=== PATIENT | male | born 1940 | race Caucasian/White ===

== ENCOUNTER 2018-09-26 09:03 | Emergency (ER) | payer MEDICARE ==
[2018-09-26] MEDS ORDERED: NA CHLORIDE 0.9% 1,000 ML ONE (09:20)
[2018-09-26 09:29] LABS: Absolute Lymphocytes (CBC) 1.7 K/uL (0.7-4.9); Absolute Monocytes 0.7 K/uL (0.1-1.3); Absolute Neutrophil 5.2 K/uL (1.8-8.0); Basophils % 0.7 % (0-1.3); Eosinophils % 1.1 % (0-4.4); Hematocrit 49.1 % (39.6-49.0); Lymphocytes % 21.9 % (15.3-44.8); MPV 8.7 fL (7.6-11.3); Monocytes % 8.8 % (3.3-12.3); RBC Red Blood Cell Count 5.37 M/uL (4.33-5.43)
[2018-09-26] MEDS ORDERED: INSULIN -REGULAR HUMAN 50 UNIT/0.5 ML ML ONE ×2 (09:33→10:28)
[2018-09-26 09:51] LABS: BUN Blood Urea Nitrogen 23 mg/dL (7-18); Bicarbonate 26 mmol/L (21-32); Creatine Phosphokinase 61 U/L (39-308); Glucose Level 393 mg/dL (74-106); Magnesium 2.4 mg/dL (1.8-2.4); Sodium Level 138 mmol/L (136-145); Troponin (Emerg Dept Use Only) < 0.02 ng/mL (0.0-0.045)
--- NOTE | 2018-09-26 10:23 | RAD REPORT ---
EXAM DESCRIPTION: CT - Head Brain Wo Cont - 09/26/2018 9:54 am CLINICAL HISTORY: Syncope, dizziness COMPARISON: October 2012 TECHNIQUE: Axial 5 mm thick images of the head were obtained without IV contrast. All CT scans are performed using dose optimization technique as appropriate and may include automated exposure control or mA/KV adjustment according to patient size. FINDINGS: No intracranial hemorrhage, mass, edema or shift of mid-line structures. No acute infarcti on changes seen. Moderate atrophy and chronic ischemic changes are present. Ventricles are in proport ion to volume loss. Dense arterial tree calcifications are present. Mastoid air cells and visualized portions of the paranasal sinuses are clear. No acute bony findings. IMPRESSION: Atrophy and chronic ischemic changes are present mildly progressive from 2012. No hemorrhage or acute intracranial finding. Chronic ischemic changes can mask nonhemorrhagic acute infarction. MR brain followup can be obtained if there is ongoing concern for acute ischemia.
--- NOTE | 2018-09-26 10:38 | RAD REPORT ---
EXAM DESCRIPTION: RAD - Chest Single View - 09/26/2018 10:05 am CLINICAL HISTORY: Cough, dizziness COMPARISON: August 2016 TECHNIQUE: AP portable chest image was obtained 1003 hours . FINDINGS: No focal lung parenchymal process. Lung markings are similar to comparison. Heart and vasc ulature are normal. No measurable pleural effusion and no pneumothorax. No acute bony abnormality see n. No acute aortic findings suspected. IMPRESSION: No acute cardiopulmonary process. No significant interval change.
[2018-09-26 11:34] LABS: Urine Bacteria <20 /HPF (NONE SEEN); Urine Culture Reflex Order REFLEXED; Urine RBC <5 /HPF (NONE SEEN)
--- NOTE | 2018-09-26 11:41 | EDPHYS ---
Physician Documentation [facility] Name: Yeyo Pelayo Age: 78 yrs Sex: Male : 1940 Arrival Date: 09/26/2018 Time: 09:04 Bed 4 Private MD: Lalo Munroe H ED Physician Jean Madera HPI: 09/26 10:16 This 78 yrs old Male presents to ER via Ambulatory with complaints of "Heart rn racing". 10:16 The patient presents with dizziness, generalized weakness, lightheadedness. Onset: The rn symptoms/episode began/occurred 1 week(s) ago. Context: occurred at an unknown location. Modifying factors: The symptoms are alleviated by nothing, the symptoms are aggravated by standing up, changing position. Severity of symptoms: At their worst the symptoms were moderate in the emergency department the symptoms are unchanged. The patient has not experienced similar symptoms in the past. Reports 1 week of intermittent dizziness, lightheaded, feels like going to pass out, feels heart racing, no syncope, no fever/chest pain. No abd pain/vomiting/diarrhea. Reports blood sugar has been high and urinating more frequently. . Historical: - Allergies: 09:15 No Known Allergies; ss - PMHx: 09:15 Diabetes - NIDDM; Hypertension; Kidney stones; ss - PSHx: 09:15 Lithotripsy; ss - Immunization history:: Adult Immunizations up to date. - Social history:: Smoking status: . - Ebola Screening: : No symptoms or risks identified at this time Patient denies exposure to infectious person Patient denies travel to an Ebola-affected area in the 21 days before illness onset. - Family history:: not pertinent. - Hospitalizations: : No recent hospitalization is reported. ROS: 10:16 Constitutional: Negative for fever, chills, and weight loss, Eyes: Negative for injury, rn pain, redness, and discharge, Neck: Negative for injury, pain, and swelling, Cardiovascular: Negative for chest pain, and edema, Respiratory: Negative for cough, wheezing, and pleuritic chest pain, Abdomen/GI: Negative for abdominal pain, nausea, vomiting, diarrhea, and constipation, MS/Extremity: Negative for injury and deformity, Skin: Negative for injury, rash, and discoloration, Neuro: Negative for headache, numbness, tingling, and seizure. Exam: 10:16 Constitutional: This is a well developed, well nourished patient who is awake, alert, rn and in no acute distress. Appears anxious Head/Face: Normocephalic, atraumatic. Eyes: Pupils equal round and reactive to light, extra-ocular motions intact. Lids and lashes normal. Conjunctiva and sclera are non-icteric and not injected. Cornea within normal limits. Periorbital areas with no swelling, redness, or edema. ENT: dry MM Cardiovascular: Regular rate and rhythm. No pulse deficits. Respiratory: MIld tachypnea, hyperventilating, clear bilateral breath sounds Abdomen/GI: soft, non-tender Skin: Warm, dry MS/ Extremity: Pulses equal, no cyanosis. Neurovascular intact. Full, normal range of motion. Equal circumference. Neuro: Awake and alert, GCS 15, oriented to person, place, time, and situation. Cranial nerves II-XII grossly intact. Motor strength 5/5 in all extremities. Sensory grossly intact. Cerebellar exam normal. Normal gait. Vital Signs: 09:11 BP 179 / 90; Pulse 89; Resp 25; Pulse Ox 100% ; Weight 80.29 kg; Height 6 ft. 1 in. ss (185.42 cm); Pain 0/10; 10:30 BP 124 / 69; Pulse 67; Resp 16; Pulse Ox 100% ; sv 11:00 BP 116 / 63; Pulse 62; Resp 11; Pulse Ox 100% ; sv 12:02 BP 115 / 65; Pulse 62; Resp 14; Pulse Ox 99% ; sv 09:11 Body Mass Index 23.35 (80.29 kg, 185.42 cm) ss MDM: 09:08 Patient medically screened. rn 10:30 ED course: Pt feels back to baseline with just fluids. Also switched to vegetarian rn diet, recommended supplementation with vitamins, likely component of diabetic neuropathy and vitamin deficiency, perhaps B12, given tingling to lower extremities. . 11:38 Differential diagnosis: hypovolemia, idiopathic dizziness, UTI. rn 11:38 Data reviewed: vital signs, nurses notes, lab test result(s), EKG, radiologic studies, rn CT scan, and as a result, I will discharge patient. Counseling: I had a detailed discussion with the patient and/or guardian regarding: the historical points, exam findings, and any diagnostic results supporting the discharge/admit diagnosis, lab results, radiology results, the need for outpatient follow up, to return to the emergency department if symptoms worsen or persist or if there are any questions or concerns that arise at home. Response to treatment: the patient's symptoms have resolved after treatment, the patient's condition has returned to base line, the patient is now symptom free, patient is well hydrated. and as a result, I will discharge patient. Special discussion: I discussed with the patient/guardian in detail that at this point there is no indication for admission to the hospital. It is understood, however, that if the symptoms persist or worsen the patient needs to return immediately for re-evaluation. 09/26 09:10 Order name: Basic Metabolic Panel; Complete Time: 10:15 rn 09/26 09:10 Order name: CBC with Diff; Complete Time: 09:54 rn 09/26 09:10 Order name: CPK; Complete Time: 10:15 rn 09/26 09:10 Order name: Magnesium; Complete Time: 10:15 rn 09/26 09:10 Order name: Troponin (emerg Dept Use Only); Complete Time: 10:15 rn 09/26 09:10 Order name: Ketone, Serum; Complete Time: 10:15 rn 09/26 09:10 Order name: Lactate; Complete Time: 10:15 rn 09/26 09:10 Order name: Flu; Complete Time: 09:54 rn 09/26 09:10 Order name: Blood Culture Adult (2) rn 09/26 09:10 Order name: Urine Microscopic Only; Complete Time: 11:38 rn 09/26 09:10 Order name: Urine Culture rn 09/26 09:14 Order name: Glucose, Ancillary Testing; Complete Time: 09:54 EDMS 09/26 10:17 Order name: Glucose, Ancillary Testing; Complete Time: 10:38 EDMS 09/26 10:23 Order name: Urine Dipstick--Ancillary (enter results) 09/26 09:10 Order name: CT Head Brain wo Cont; Complete Time: 10:38 rn 09/26 09:10 Order name: EKG; Complete Time: 09:11 rn 09/26 09:10 Order name: Cardiac monitoring; Complete Time: 09:13 rn 09/26 09:10 Order name: EKG - Nurse/Tech; Complete Time: 09:13 rn 09/26 09:10 Order name: IV Saline Lock; Complete Time: 09:13 rn 09/26 09:10 Order name: Labs collected and sent; Complete Time: : rn 09/26 09:10 Order name: NPO; Complete Time: : rn 09/26 09:10 Order name: O2 Per Protocol; Complete Time: 09:13 rn 09/26 09:10 Order name: O2 Sat Monitoring; Complete Time: : rn 09/26 09:10 Order name: XRAY Chest (1 view); Complete Time: 10:38 rn 09/26 10:29 Order name: Urine Dipstick-Ancillary EDMS 09/26 09:10 Order name: Glucose Level; Complete Time: 09:13 rn Administered Medications: 09:13 Drug: NS 0.9% 500 ml Route: IV; Rate: bolus; Site: right antecubital; sv 09:51 Follow up: Response: No adverse reaction; IV Status: Completed infusion; IV Intake: sg 500ml 09:23 Drug: Insulin Regular Human 5 units {Co-Signature: sg (Adiel Madsen RN).} Route: Sub-Q; sv Site: left upper arm; 09:55 Follow up: Response: No adverse reaction sv 10:00 Drug: NS 0.9% 500 ml Route: IV; Rate: bolus; Site: left forearm; ss 10:30 Follow up: Response: No adverse reaction; IV Status: Completed infusion; IV Intake: sv 500ml 10:00 Drug: Insulin Regular Human 5 units {Co-Signature: sv (Yakelin Gutierrez RN).} Route: ss Sub-Q; Site: right upper arm; 10:30 Follow up: Response: No adverse reaction sv Point of Care Testing: Blood Glucose: 09:11 Blood Glucose: 366 mg/dL; ss 09:55 Blood Glucose: 329 mg/dL; sv 09:[address] Madera, medication order received. sv Ranges: Critical Glucose Levels:Adult <50 mg/dl or >400 mg/dl <40 mg/dl or >180 mg/dl Disposition: 09/26/18 11:39 Discharged to Home. Impression: Dizziness and giddiness, Dehydration, Urinary tract infection, site not specified. - Condition is Stable. - Discharge Instructions: Dehydration, Adult, Dizziness, Urinary Tract Infection, Adult. - Prescriptions for Keflex 500 mg Oral Capsule - take 1 capsule by ORAL route every 12 hours for 10 days; 20 capsule. - Medication Reconciliation Form, Thank You Letter, Antibiotic Education, Prescription Opioid Use form. - Follow up: Lalo Munroe DO; When: As needed; Reason: Recheck today's complaints, Re-evaluation by your physician. - Problem is new. - Symptoms have improved. Signatures: Dispatcher [employer] EDYakelin Mclaughlin RN RN sv Jean Madera MD MD rn Smirch, Shelby, RN RN ss Gay, Steven RN sg Adiel Madsen RN sg Yakelin Gutierrez RN sv Corrections: (The following items were deleted from the chart) 12:19 11:39 09/26/2018 11:39 Discharged to Home. Impression: Dizziness and giddiness; ss Dehydration; Urinary tract infection, site not specified. Condition is Stable. Forms are Medication Reconciliation Form, Thank You Letter, Antibiotic Education, Prescription Opioid Use. Follow up: Lalo Munroe; When: As needed; Reason: Recheck today's complaints, Re-evaluation by your physician. Problem is new. Symptoms have improved. rn
--- NOTE | 2018-09-26 11:41 | ER ---
Nurse's Notes [facility] Name: Yeyo Pelayo Age: 78 yrs Sex: Male : 1940 Arrival Date: 09/26/2018 Time: 09:04 Bed 4 Private MD: Lalo Munroe H Diagnosis: Dizziness and giddiness;Dehydration;Urinary tract infection, site not specified Presentation: 09/26 09:12 Presenting complaint: Patient states: "I feel lightheaded and dizzy and I feel like my ss heart is racing. It's been going on for a week, but got worse this morning. My whole body feels tingly like pins and needles everywhere too.". Transition of care: patient was not received from another setting of care. Onset of symptoms is unknown. Risk Assessment: Do you want to hurt yourself or someone else? Patient reports no desire to harm self or others. Initial Sepsis Screen: Does the patient meet any 2 criteria? RR > 20 per min. Does the patient have a suspected source of infection? No. Patient's initial sepsis screen is negative. Care prior to arrival: None. 09:12 Method Of Arrival: Ambulatory ss 09:12 Acuity: KEN 2 ss Historical: - Allergies: 09:15 No Known Allergies; ss - PMHx: 09:15 Diabetes - NIDDM; Hypertension; Kidney stones; ss - PSHx: 09:15 Lithotripsy; ss - Immunization history:: Adult Immunizations up to date. - Social history:: Smoking status: . - Ebola Screening: : No symptoms or risks identified at this time Patient denies exposure to infectious person Patient denies travel to an Ebola-affected area in the 21 days before illness onset. - Family history:: not pertinent. - Hospitalizations: : No recent hospitalization is reported. Screenin:14 Abuse screen: Denies threats or abuse. Denies injuries from another. Nutritional sv screening: No deficits noted. Tuberculosis screening: No symptoms or risk factors identified. Fall Risk None identified. Assessment: 09:08 General: Appears uncomfortable, well developed, Behavior is cooperative, anxious. Pain: sv Denies pain. Neuro: Level of Consciousness is awake, alert, obeys commands, Oriented to person, place, time, situation, Moves all extremities. Full function Gait is steady, Speech is normal, Reports dizziness, "pins and needles everywhere". Respiratory: Airway is patent Respiratory effort is even, shallow, Respiratory pattern is symmetrical, tachypnea. Derm: Skin is normal. 09:23 Reassessment: Patient appears in no apparent distress at this time. No changes from previously documented assessment. Patient and/or family updated on plan of care and expected duration. Pain level reassessed. Patient is alert, oriented x 3, equal unlabored respirations, skin warm/dry/pink. 10:00 Reassessment: Patient appears in no apparent distress at this time. Patient and/or sv family updated on plan of care and expected duration. Pain level reassessed. Patient is alert, oriented x 3, equal unlabored respirations, skin warm/dry/pink. Patient states feeling better. Patient states symptoms have improved. 11:12 Reassessment: Patient appears in no apparent distress at this time. Patient and/or sv family updated on plan of care and expected duration. Pain level reassessed. Patient is alert, oriented x 3, equal unlabored respirations, skin warm/dry/pink. Patient states feeling better. Patient states symptoms have improved. 12:10 Reassessment: Patient appears in no apparent distress at this time. No changes from sv previously documented assessment. Patient and/or family updated on plan of care and expected duration. Pain level reassessed. Patient is alert, oriented x 3, equal unlabored respirations, skin warm/dry/pink. Vital Signs: 09:11 BP 179 / 90; Pulse 89; Resp 25; Pulse Ox 100% ; Weight 80.29 kg; Height 6 ft. 1 in. (185.42 cm); Pain 0/10; 10:30 BP 124 / 69; Pulse 67; Resp 16; Pulse Ox 100% ; sv 11:00 BP 116 / 63; Pulse 62; Resp 11; Pulse Ox 100% ; sv 12:02 BP 115 / 65; Pulse 62; Resp 14; Pulse Ox 99% ; sv 09:11 Body Mass Index 23.35 (80.29 kg, 185.42 cm) ED Course: 09:04 Patient arrived in ED. sb2 09:04 Lalo Munroe DO is Private Physician. sb2 09:08 Jean Madera MD is Attending Physician. rn 09:08 Initial lab(s) drawn, by me, sent to lab. Inserted saline lock: 20 gauge in right sv antecubital area, using aseptic technique. Blood collected. Flushed right antecubital with 5 ml normal saline. 09:08 No provider procedures requiring assistance completed. sg 09:11 Arm band placed on left wrist. ss 09:12 Yakelin Gutierrez, RN is Primary Nurse. sv 09:14 Triage completed. ss 09:14 Patient has correct armband on for positive identification. Placed in gown. Bed in low sv position. Call light in reach. Side rails up X2. airline operations agent on. Pulse ox on. NIBP on. Door closed. Head of bed elevated. 09:53 CT Head Brain wo Cont In Process Unspecified. EDMS 10:03 X-ray completed. Portable x-ray completed in exam room. Patient tolerated procedure sg4 well. 10:04 XRAY Chest (1 view) In Process Unspecified. EDMS 11:39 Lalo Munroe DO is Referral Physician. rn 12:15 IV discontinued, intact, bleeding controlled, No redness/swelling at site. Pressure sg dressing applied. 15:51 Urine Dipstick--Ancillary (enter results) Sent. sv Administered Medications: 09:13 Drug: NS 0.9% 500 ml Route: IV; Rate: bolus; Site: right antecubital; sv 09:51 Follow up: Response: No adverse reaction; IV Status: Completed infusion; IV Intake: sg 500ml 09:23 Drug: Insulin Regular Human 5 units {Co-Signature: sg (Adiel Madsen RN).} Route: Sub-Q; sv Site: left upper arm; 09:55 Follow up: Response: No adverse reaction sv 10:00 Drug: NS 0.9% 500 ml Route: IV; Rate: bolus; Site: left forearm; ss 10:30 Follow up: Response: No adverse reaction; IV Status: Completed infusion; IV Intake: sv 500ml 10:00 Drug: Insulin Regular Human 5 units {Co-Signature: sv (Yakelin Gutierrez RN).} Route: ss Sub-Q; Site: right upper arm; 10:30 Follow up: Response: No adverse reaction sv Point of Care Testing: Blood Glucose: 09:11 Blood Glucose: 366 mg/dL; ss 09:55 Blood Glucose: 329 mg/dL; sv 09:[address] Madera, medication order received. sv Ranges: Intake: 09:51 IV: 500ml; Total: 500ml. sg 10:30 IV: 500ml; Total: 1000ml. sv Outcome: 11:39 Discharge ordered by . rn 12:10 Discharged to home ambulatory, with family. sg 12:10 Condition: good 12:10 Discharge instructions given to patient, Instructed on discharge instructions, follow up and referral plans. no drinking with medication, no driving heavy equipment, safety practices, Demonstrated understanding of instructions, follow-up care, medications, Prescriptions given X 1. 12:19 Patient left the ED. ss Signatures: Dispatcher [employer] EDMS Yakelin Gutierrez RN RN Adiel Madsen RN RN Jean Madera MD MD rn Smirch, Shelby, RN RN Deborah Vasquez Susana sg4 Adiel Madsen RN Yakelin wells
[2018-09-26 13:01] VITALS: BP 115/65; O2SAT 99
[2018-09-26 14:11] LABS: Urine Blood TRACE (NEG); Urine Glucose 2+ (NEG); Urine Protein NEGATIVE (NEG); Urine Specific Gravity 1.015 (1.005-1.030); Urine pH 7.5 (5.0-7.0)
--- NOTE | 2018-09-26 21:51 | EKG ---
Test Date: 2018-09-26 Test Time: 09:08:02 Wet Chemistry Analyst: SWG MEASUREMENT RESULTS: Intervals: Rate: 93 UT: 220 QRSD: 136 QT: 378 QTc: 469 [place]: P: 64 UT: 220 QRS: 51 T: 35 INTERPRETIVE STATEMENTS: Sinus rhythm with 1st degree AV block Right bundle branch block Abnormal ECG Compared to ECG 09/12/2016 08:49:32 First degree AV block now present Myocardial infarct finding no longer present Electronically Signed On 09-26-18 21:50:22 [employer] ROOM OPERATOR by Hugo Singh
== END 2018-09-26 12:19 | disposition home or self-care (01) ==
LOC: ER 09:03
DX: E86.0 Dehydration (principal); N39.0 Urinary tract infection, site not specified; I44.0 Atrioventricular block, first degree; I45.10 Unspecified right bundle-branch block; R94.31 Abnormal electrocardiogram [ECG] [EKG]; E11.9 Type 2 diabetes mellitus without complications; I10 Essential (primary) hypertension
CPT/HCPCS: 36415; 70450; 71045; 80048; 82010; 82550; 82962 ×2; 83605; 83735; 84484; 85025; 87040 ×2; 87086; 87088; 87804 ×2; 93005; 96360; 96372; 99284; J7030; 81003; 81015

== ENCOUNTER 2018-12-16 13:30 | Emergency (ER) | payer MEDICARE ==
[2018-12-16 14:14] LABS: Urine Blood TRACE (NEG); Urine Glucose 2+ (NEG); Urine Protein TRACE (NEG); Urine Specific Gravity 1.015 (1.005-1.030)
[2018-12-16 14:46] LABS: Absolute Lymphocytes (CBC) 0.6 K/uL (0.7-4.9); Absolute Neutrophil 8.8 K/uL (1.8-8.0); Basophils % 0.5 % (0-1.3); Eosinophils % 1.5 % (0-4.4); Hematocrit 46.1 % (39.6-49.0); Lymphocytes % 5.7 % (15.3-44.8); MPV 7.9 fL (7.6-11.3); Monocytes % 9.2 % (3.3-12.3); RBC Red Blood Cell Count 4.99 M/uL (4.33-5.43)
[2018-12-16 14:51] LABS: Urine Bacteria <20 /HPF (NONE SEEN); Urine Culture Reflex Order NOT NEEDED; Urine RBC <5 /HPF (NONE SEEN)
[2018-12-16] MEDS ORDERED: MEPERIDINE HCL 25 MG/0.5 ML ONE (14:59)
[2018-12-16 15:00] LABS: Albumin 3.9 g/dL (3.4-5.0); Bilirubin Direct 0.1 mg/dL (0-0.2); Bilirubin Total 0.6 mg/dL (0.2-1.0); Potassium 3.9 mmol/L (3.5-5.1); Protein, Total 7.9 g/dL (6.4-8.2)
--- NOTE | 2018-12-16 15:21 | RAD REPORT ---
EXAM DESCRIPTION: RAD - Chest Single View - 12/16/2018 3:11 pm CLINICAL HISTORY: Dyspnea COMPARISON: November 12 TECHNIQUE: AP portable chest image was obtained 1446 hours . FINDINGS: Lung volumes are low accentuating baseline interstitial pattern. Substantial interval [place] ge in the lung parenchyma is not seen. No peripheral mass, consolidation or significant failure. Hear t and vasculature are normal. No measurable pleural effusion and no pneumothorax. No acute bony abnor mality seen. No acute aortic findings suspected. IMPRESSION: Limited shallow inspiration not significantly different from comparison. No acute chest finding seen.
--- NOTE | 2018-12-16 15:55 | RAD REPORT ---
EXAM DESCRIPTION: CT - Abdomen Pelvis W Contrast - 12/16/2018 3:31 pm CLINICAL HISTORY: Back pain, flank pain COMPARISON: CT imaging November 08, CT study June 2014 TECHNIQUE: Biphasic, helical CT imaging of the abdomen and pelvis was performed following 100 ml non -ionic IV contrast. No oral contrast. All CT scans are performed using dose optimization technique as appropriate and may include automated exposure control or mA/KV adjustment according to patient size. FINDINGS: No infiltrate, pneumothorax or pleural effusion. A 4- 5 millimeter pulmonary nodule is pre sent in the anterior right lung base. This is new or slightly larger than 2014. No cardiomegaly. No p ericardial thickening or effusion. The liver, spleen, and pancreas show no suspicious findings. Gallbladder size is upper normal. No wal l thickening or pericholecystic fluid. No biliary tree dilatation. No definitive gallstones. [place] es can be occult on CT imaging. There are faint hyperdensities along the dependent or posterior wall similar to comparison. This potentially wall calcification or faint sandlike stones. Symmetric renal function is seen with no hydronephrosis or suspicious renal mass. No obstructing or n onobstructing calculi. No pyelonephritis or acute parenchymal process. No bladder abnormalities. No a drenal abnormalities. Urinary bladder is contracted which accentuates wall thickness. This precludes accurate assessment of any possible wall thickening or mass. No bladder stone. No gastric dilatation or gastric wall thickening. No dilated large or small bowel loops. Moderate sto ol volume is present throughout the colon without a focal mass or suspicious colon wall thickening. N o appendicitis findings. No free air, free fluid or inflammatory stranding. No mass or bulky lymphadenopathy identified. No o mental thickening. Patient has a small fat only umbilical hernia and a small fat only left inguinal h ernia. No active process. Prostate gland is mildly prominent. Numerous phleboliths are present. Disc and bony degenerative changes are present with no pathologic bone process. No acute vascular fin ding seen. IMPRESSION: Contrast-enhanced CT abdomen and pelvis imaging shows no acute finding. No acute finding seen. The contraction of the urinary bladder precludes accurate assessment of wal l thickness. No bladder stone identified. Small 4- 5 millimeter pulmonary nodule anterior right lung base. Long-term significance is doubtful. Follow-up CT imaging in 12 months could be performed.
[2018-12-16] MEDS ORDERED: CYCLOBENZAPRINE 10 MG TAB ONE (16:38)
--- NOTE | 2018-12-16 16:47 | EDPHYS ---
Physician Documentation [facility] [place] Name: Yeyo Pelayo Age: 78 yrs Sex: Male : 1940 Arrival Date: 12/16/2018 Time: 13:31 Bed 24 Private MD: Lalo Munroe H ED Physician Jean Madera HPI: 12/16 14:41 This 78 yrs old Male presents to ER via Wheelchair with complaints of Low rn Back Pain, Shortness Of Breath. 16:11 The patient presents with pain that is chronic. The symptoms are located in the low rn back. The pain radiates to the abdomen. Onset: The symptoms/episode began/occurred today. Modifying factors: The patient symptoms are alleviated by nothing, the patient symptoms are aggravated by any movement. Severity of symptoms: At their worst the symptoms were moderate, in the emergency department the symptoms have improved. The patient has experienced similar episodes in the past. Reports chronic back pain but today is worse, hurts to move and twist, shoots around to abdomen, reports recent urological procedure weeks ago, has been on abx, and noticed urine smelling funny, started on macrobid 2 days ago for this. Reports also muscle aches and pain throughout this body. . Historical: - Allergies: 13:40 No Known Allergies; ao - Home Meds: 13:40 amlodipine-benazepril 5-20 mg Oral cap 1 cap once daily [Active]; glimepiride 4 mg Oral ao tab 1 tab twice a day [Active]; - PMHx: 13:40 Diabetes - NIDDM; Hypertension; Kidney stones; ao - PSHx: 13:40 None; ao - Immunization history:: Adult Immunizations up to date. - Social history:: Smoking status: Patient/guardian denies using tobacco, Patient/guardian denies using alcohol, street drugs. - Ebola Screening: : Patient negative for fever greater than or equal to 101.5 degrees Fahrenheit, and additional compatible Ebola Virus Disease symptoms Patient denies exposure to infectious person Patient denies travel to an Ebola-affected area in the 21 days before illness onset. - Family history:: not pertinent. - Hospitalizations: : No recent hospitalization is reported. ROS: 16:20 Constitutional: Negative for fever, chills, and weight loss, Eyes: Negative for injury, rn pain, redness, and discharge, Neck: Negative for injury, pain, and swelling, Cardiovascular: Negative for chest pain, palpitations, and edema, Respiratory: Negative for cough, wheezing, and pleuritic chest pain, Abdomen/GI: Negative for nausea, vomiting, diarrhea, and constipation, Back: Negative for injury MS/Extremity: Negative for injury and deformity, Skin: Negative for injury, rash, and discoloration, Neuro: Negative for headache, weakness, numbness, tingling, and seizure. Exam: 16:20 Constitutional: This is a well developed, well nourished patient who is awake, alert, rn hyperventilating, appears anxious and in pain Head/Face: Normocephalic, atraumatic. Eyes: Pupils equal round and reactive to light, extra-ocular motions intact. Lids and lashes normal. Conjunctiva and sclera are non-icteric and not injected. Cornea within normal limits. Periorbital areas with no swelling, redness, or edema. Vital Signs: 13:41 BP 166 / 109; Pulse 94; Resp 20; Temp 99.0(O); Pulse Ox 99% on R/A; Weight 77.11 kg; ao Height 6 ft. 1 in. (185.42 cm); Pain 10/10; 16:34 BP 136 / 47; Pulse 90; Resp 18; Temp 98.7; Pulse Ox 100% on R/A; mg2 13:41 Body Mass Index 22.43 (77.11 kg, 185.42 cm) ao MDM: 13:47 Patient medically screened. rn 16:43 Differential diagnosis: arthritis, strain, fracture, sciatica, Herniated disc UTI. Data rn reviewed: vital signs, nurses notes, lab test result(s), radiologic studies, CT scan, plain films, and as a result, I will discharge patient. Counseling: I had a detailed discussion with the patient and/or guardian regarding: the historical points, exam findings, and any diagnostic results supporting the discharge/admit diagnosis, lab results, radiology results, the need for outpatient follow up, to return to the emergency department if symptoms worsen or persist or if there are any questions or concerns that arise at home. Response to treatment: the patient's condition has returned to base line, the patient is now symptom free, and as a result, I will discharge patient. Special discussion: Based on the patient's Hx, exam, and Dx evaluation, there is no indication for emergent surgery or inpatient Tx. It is understood by the patient/guardian that if the Sx's persist or worsen they need to return immediately for re-evaluation. I discussed with the patient/guardian in detail that at this point there is no indication for admission to the hospital. It is understood, however, that if the symptoms persist or worsen the patient needs to return immediately for re-evaluation. ED course: No acute findings on CT, pain resolved, possibly constipation due to pain medication, recommended fluids and stool softeners, will prescribe muscle relaxers, has pain meds, return precautions given and understood. . 12/16 13:50 Order name: Urine Dipstick--Ancillary (enter results); Complete Time: 14:40 eb 12/16 14:04 Order name: Basic Metabolic Panel; Complete Time: 15:04 rn 12/16 14:04 Order name: CBC with Diff; Complete Time: 15:04 rn 12/16 14:04 Order name: Hepatic Function; Complete Time: 15:04 rn 12/16 14:04 Order name: Lipase; Complete Time: 15:04 rn 12/16 14:04 Order name: Urine Microscopic Only; Complete Time: 15:04 rn 12/16 13:42 Order name: Urine Dipstick-Ancillary (obtain specimen); Complete Time: 13:47 ao 12/16 14:04 Order name: IV Saline Lock; Complete Time: 14:37 rn 12/16 14:04 Order name: CT Abd/Pelvis - W/Contrast; Complete Time: 15:58 rn 12/16 14:04 Order name: Blood Culture Adult (2) rn 12/16 14:04 Order name: XRAY Chest (1 view); Complete Time: 15:58 rn 12/16 14:04 Order name: EKG; Complete Time: 14:05 rn 12/16 14:04 Order name: Labs collected and sent; Complete Time: 14:38 rn 12/16 14:04 Order name: EKG - Nurse/Tech; Complete Time: 15:09 rn Administered Medications: 14:54 Drug: Demerol - Meperidine 12.5 mg Route: IVP; Site: right upper arm; ao 16:50 Follow up: Response: No adverse reaction; Marked relief of symptoms mg2 16:34 Drug: Flexeril 10 mg Route: PO; mg2 16:50 Follow up: Response: No adverse reaction; Medication administered at discharge. mg2 Disposition: 12/16/18 16:46 Discharged to Home. Impression: Low back pain, Constipation, unspecified, Muscle spasm. - Condition is Stable. - Discharge Instructions: Back Pain, Adult, Constipation, Adult, Musculoskeletal Pain. - Prescriptions for Cyclobenzaprine 10 mg Oral Tablet - take 1 tablet by ORAL route every 8-12 hours As needed; 20 tablet. - Medication Reconciliation Form, Thank You Letter, Antibiotic Education, Prescription Opioid Use form. - Follow up: Private Physician; When: As needed; Reason: Recheck today's complaints, Re-evaluation by your physician. - Problem is new. - Symptoms have improved. Signatures: Dispatcher [employer] EDMS Jean Madera MD MD rn Ortiz, Alex, RN RN ao Gardose, Michele, RN RN mg2 Corrections: (The following items were deleted from the chart) 16:59 16:46 12/16/2018 16:46 Discharged to Home. Impression: Low back pain; Constipation, mg2 unspecified; Muscle spasm. Condition is Stable. Forms are Medication Reconciliation Form, Thank You Letter, Antibiotic Education, Prescription Opioid Use. Follow up: Private Physician; When: As needed; Reason: Recheck today's complaints, Re-evaluation by your physician. Problem is new. Symptoms have improved. rn
--- NOTE | 2018-12-16 16:47 | ER ---
Nurse's Notes [facility] [place] Name: Yeyo Pelayo Age: 78 yrs Sex: Male : 1940 Arrival Date: 12/16/2018 Time: 13:31 Bed 24 Private MD: Lalo Munroe H Diagnosis: Low back pain;Constipation, unspecified;Muscle spasm Presentation: 12/16 13:37 Presenting complaint: Patient states: Lower back pain and SOB. Patient had similar ao symptoms few months ago and was treated at this hospital. Also C/O of blurred vision. Patient also complains of bad odor in the urine. Transition of care: patient was not received from another setting of care. Onset of symptoms is unknown. Risk Assessment: Do you want to hurt yourself or someone else? Patient reports no desire to harm self or others. Initial Sepsis Screen: Does the patient meet any 2 criteria? No. Patient's initial sepsis screen is negative. Does the patient have a suspected source of infection? No. Patient's initial sepsis screen is negative. Care prior to arrival: None. 13:37 Method Of Arrival: Wheelchair ao 13:37 Acuity: KEN 3 ao Triage Assessment: 13:43 General: Appears in no apparent distress. uncomfortable, Behavior is calm, cooperative, ao appropriate for age. Pain: Complains of pain in left low back and right low back Pain does not radiate. Pain currently is 8 out of 10 on a pain scale. EENT: No signs and/or symptoms were reported regarding the EENT system. Neuro: Level of Consciousness is awake, alert, obeys commands, Oriented to person, place, time, situation, Appropriate for age Moves all extremities. Full function Speech is normal, Facial symmetry appears normal. Cardiovascular: Capillary refill < 3 seconds Patient's skin is warm and dry. Respiratory: Reports shortness of breath at rest Onset: The symptoms/episode began/occurred just prior to arrival, the patient has mild shortness of breath. GI: Abdomen is flat, non-distended. : Reports burning with urination, urinary frequency, Bad urine odor. Derm: No signs and/or symptoms reported regarding the dermatologic system. Musculoskeletal: Circulation, motion, and sensation intact. Range of motion: limited in all extremities. Historical: - Allergies: 13:40 No Known Allergies; ao - Home Meds: 13:40 amlodipine-benazepril 5-20 mg Oral cap 1 cap once daily [Active]; glimepiride 4 mg Oral ao tab 1 tab twice a day [Active]; - PMHx: 13:40 Diabetes - NIDDM; Hypertension; Kidney stones; ao - PSHx: 13:40 None; ao - Immunization history:: Adult Immunizations up to date. - Social history:: Smoking status: Patient/guardian denies using tobacco, Patient/guardian denies using alcohol, street drugs. - Ebola Screening: : Patient negative for fever greater than or equal to 101.5 degrees Fahrenheit, and additional compatible Ebola Virus Disease symptoms Patient denies exposure to infectious person Patient denies travel to an Ebola-affected area in the 21 days before illness onset. - Family history:: not pertinent. - Hospitalizations: : No recent hospitalization is reported. Screenin:45 Abuse screen: Denies threats or abuse. Denies injuries from another. Nutritional ao screening: No deficits noted. Tuberculosis screening: No symptoms or risk factors identified. Fall Risk None identified. Assessment: 13:44 General: See triage assessment . Cardiovascular: Rhythm is regular. Respiratory: Airway ao is patent Respiratory effort is even, unlabored, Breath sounds are clear bilaterally. 16:58 Reassessment: Patient states feeling better. Patient states symptoms have improved. mg2 Vital Signs: 13:41 BP 166 / 109; Pulse 94; Resp 20; Temp 99.0(O); Pulse Ox 99% on R/A; Weight 77.11 kg; ao Height 6 ft. 1 in. (185.42 cm); Pain 10/10; 16:34 BP 136 / 47; Pulse 90; Resp 18; Temp 98.7; Pulse Ox 100% on R/A; mg2 13:41 Body Mass Index 22.43 (77.11 kg, 185.42 cm) ao ED Course: 13:31 Patient arrived in ED. as 13:31 Lalo Munroe DO is Private Physician. as 13:37 Raad Perrin, CACHORRO is Primary Nurse. ao 13:38 EKG done, by substance abuse technician. reviewed by Jean Madera MD. at1 13:40 Triage completed. ao 13:42 Arm band placed on right wrist. Patient placed in an exam room, on a stretcher, on ao pulse oximetry, Patient notified of wait time. 13:45 Patient has correct armband on for positive identification. Pulse ox on. NIBP on. ao 13:47 Jean Madera MD is Attending Physician. rn 14:38 Inserted saline lock: 20 gauge in right antecubital area, using aseptic technique. ao Blood collected. 15:12 XRAY Chest (1 view) In Process Unspecified. EDMS 15:[address] via wheelchair. nj 15:32 CT Abd/Pelvis - W/Contrast In Process Unspecified. EDMS 16:35 No provider procedures requiring assistance completed. mg2 16:58 IV discontinued, intact, bleeding controlled, No redness/swelling at site. Pressure mg2 dressing applied. Administered Medications: 14:54 Drug: Demerol - Meperidine 12.5 mg Route: IVP; Site: right upper arm; ao 16:50 Follow up: Response: No adverse reaction; Marked relief of symptoms mg2 16:34 Drug: Flexeril 10 mg Route: PO; mg2 16:50 Follow up: Response: No adverse reaction; Medication administered at discharge. mg2 Outcome: 16:46 Discharge ordered by MD. rn 16:58 Discharged to home ambulatory, with family. mg2 16:58 Condition: stable 16:58 Discharge instructions given to patient, family, Instructed on discharge instructions, follow up and referral plans. medication usage, Demonstrated understanding of instructions, follow-up care, medications, Prescriptions given X 1. 16:59 Patient left the ED. mg2 Signatures: Dispatcher [employer] EDKendal Villa Roman, MD MD rn Gonzales, Amanda, chalk cutter EKG Tat1 Raad Perrin RN RN ao Jordan, Nathan nj Gardose, Michele, RN RN mg2 Corrections: (The following items were deleted from the chart) 16:35 16:34 BP 136 / 47; Pulse 90bpm; Resp 18bpm; Pulse Ox 100% RA; mg2 mg2
[2018-12-16 17:05] VITALS: BP 136/47; TEMP 98.7; O2SAT 100
--- NOTE | 2018-12-16 17:05 | EKG ---
Test Date: 2018-12-16 Test Time: 13:35:50 Filament Tester: JOSIAH MEASUREMENT RESULTS: Intervals: Rate: 93 NC: 206 QRSD: 132 QT: 370 QTc: 460 [place]: P: 41 NC: 206 QRS: 37 T: 7 INTERPRETIVE STATEMENTS: Normal sinus rhythm Right bundle branch block T wave abnormality, consider inferior ischemia Abnormal ECG Compared to ECG 09/26/2018 09:08:02 T-wave abnormality now present Possible ischemia now present First degree AV block no longer present Electronically Signed On 12-16-18 17:04:41 CDT by Hugo Singh
== END 2018-12-16 16:59 | disposition home or self-care (01) ==
LOC: ER 13:30
DX: K59.00 Constipation, unspecified (principal); M62.830 Muscle spasm of back; E11.9 Type 2 diabetes mellitus without complications; I10 Essential (primary) hypertension
CPT/HCPCS: 93005; 87040 ×2; 85025; 80048; 36415; 80076; 83690; 74177; 71045; 96374; 99284; Q9967; J2175; 81003; 81015

== ENCOUNTER 2019-05-28 01:11 | Emergency (ER) | payer MEDICARE ==
[2019-05-28] MEDS ORDERED: METHYLPREDNISOLONE 125 MG INJ ONE (01:27)
[2019-05-28] MEDS ORDERED: LEVALBUTEROL 1.25 MG/3 ML NEB ONE (01:27)
[2019-05-28] MEDS ORDERED: DIPHENHYDRAMINE 50 MG/ML VIAL ONE (01:28)
[2019-05-28 01:50] LABS: Absolute Lymphocytes (CBC) 2.5 K/uL (0.7-4.9); Basophils % 0.5 % (0-1.3); Hematocrit 44.3 % (39.6-49.0); Lymphocytes % 36.1 % (15.3-44.8); MPV 8.4 fL (7.6-11.3)
[2019-05-28 02:05] LABS: BUN Blood Urea Nitrogen 28 mg/dL (7-18); Bicarbonate 26 mmol/L (21-32); Glucose Level 214 mg/dL (74-106); Potassium 3.8 mmol/L (3.5-5.1); Sodium Level 140 mmol/L (136-145); Troponin (Emerg Dept Use Only) < 0.02 ng/mL (0.0-0.045)
--- NOTE | 2019-05-28 02:15 | EDPHYS ---
Physician Documentation [facility] Name: Yeyo Pelayo Age: 78 yrs Sex: Male : 1940 Arrival Date: 05/28/2019 Time: 01:14 Bed 13 Private MD: ED Physician Jean Madera HPI: 05/28 01:25 This 78 yrs old Male presents to ER via Unassigned with complaints of rn Shortness Of Breath. 01:25 The patient has shortness of breath at rest. Onset: The symptoms/episode began/occurred rn just prior to arrival. Duration: The symptoms are continuous. The patient's shortness of breath is aggravated by nothing, is alleviated by nothing. Severity of symptoms: At their worst the symptoms were mild in the emergency department the symptoms are unchanged. The patient has experienced similar episodes in the past. states used vegetable oil to mop the floor for the sheen, mopped bedroom, patient woke up from sleep tasting vegetable oil in mouth, feels like coating mouth, and difficult to breath. Has had allergic reaction in past of unknown etiology. states that he is very sensitive to smells and fragrance but has never been this bad. Denies chest pain. . 01:27 Reports is feeling a little better than earlier. . rn Historical: - Allergies: 01:37 No Known Allergies; cc3 - Home Meds: 01:37 amlodipine-benazepril 5-20 mg Oral cap 1 cap once daily [Active]; glimepiride 4 mg Oral cc3 tab 1 tab twice a day [Active]; - PMHx: 01:37 Diabetes - NIDDM; Hypertension; Kidney stones; cc3 - Immunization history:: Adult Immunizations unknown. - Social history:: Smoking status: Patient/guardian denies using tobacco. - Family history:: not pertinent. - Ebola Screening: : Patient negative for fever greater than or equal to 101.5 degrees Fahrenheit, and additional compatible Ebola Virus Disease symptoms Patient denies exposure to infectious person. - Hospitalizations: : No recent hospitalization is reported. ROS: 01:27 Constitutional: Negative for fever, chills, and weight loss, Eyes: Negative for injury, rn pain, redness, and discharge, ENT: dry mouth, sensation of vegetable oil in throat Neck: Negative for injury, pain, and swelling, Cardiovascular: Negative for chest pain, palpitations, and edema, Respiratory: + sob, negative for cough Abdomen/GI: Negative for abdominal pain, nausea, vomiting, diarrhea, and constipation, MS/Extremity: Negative for injury and deformity, Skin: Negative for injury, rash, and discoloration, Neuro: Negative for headache, weakness, numbness, tingling, and seizure. Exam: 01:27 Constitutional: This is a well developed, well nourished patient who is awake, alert, rn appears anxious, hyperventilating, but speaking full sentences. Head/Face: Normocephalic, atraumatic. ENT: dry MM, no oral lesions, no swelling Neck: Trachea midline, no thyromegaly or masses palpated, and no cervical lymphadenopathy. Supple, full range of motion without nuchal rigidity, or vertebral point tenderness. No Meningismus. Cardiovascular: Regular rate and rhythm. No pulse deficits. Respiratory: Lungs have equal breath sounds bilaterally, clear to auscultation. + hyperventilating. Abdomen/GI: soft, non-tender Skin: Warm, dry with normal turgor. Normal color with no rashes, no lesions, and no evidence of cellulitis. MS/ Extremity: Pulses equal, no cyanosis. Neurovascular intact. Full, normal range of motion. Equal circumference. Neuro: Awake and alert, GCS 15, oriented to person, place, time, and situation. Cranial nerves II-XII grossly intact. Motor strength 5/5 in all extremities. Sensory grossly intact. Cerebellar exam normal. Vital Signs: 01:42 BP 176 / 89; Pulse 79; Resp 18; Temp 98.2; Pulse Ox 100% on R/A; wh 02:30 BP 134 / 69; Pulse 62; Resp 18; Pulse Ox 95% on R/A; wh MDM: 01:17 Patient medically screened. rn 02:10 Differential diagnosis: Anxiety Reaction Psychogenic reactive airway disease. Data rn reviewed: vital signs, nurses notes, lab test result(s), EKG, radiologic studies, plain films, and as a result, I will discharge patient. Counseling: I had a detailed discussion with the patient and/or guardian regarding: the historical points, exam findings, and any diagnostic results supporting the discharge/admit diagnosis, lab results, radiology results, the need for outpatient follow up, to return to the emergency department if symptoms worsen or persist or if there are any questions or concerns that arise at home. Response to treatment: the patient's symptoms have resolved after treatment, the patient's condition has returned to base line, the patient is now symptom free, and as a result, I will discharge patient. Special discussion: I discussed with the patient/guardian in detail that at this point there is no indication for admission to the hospital. It is understood, however, that if the symptoms persist or worsen the patient needs to return immediately for re-evaluation. ED course: UNclear what happened, treated as reactive problem possibly to oil used to mop bedroom floor. Now back to baseline. Normal workup. No ischemia on ecg. Neg trop. Will dc home. . 05/28 01:23 Order name: CBC with Diff; Complete Time: 02: 05/28 01:23 Order name: Basic Metabolic Panel; Complete Time: 02:10 05/28 01:23 Order name: Troponin (emerg Dept Use Only); Complete Time: 02:10 05/28 01:24 Order name: XRAY Chest (1 view) 05/28 01:23 Order name: EKG; Complete Time: 01:24 05/28 01:23 Order name: IV Start; Complete Time: 01:38 rn 05/28 01:23 Order name: EKG - Nurse/Tech; Complete Time: 01:43 rn Administered Medications: 01:25 Drug: SOLU-Medrol 125 mg Route: IVP; Site: right antecubital; rr5 02:36 Follow up: Response: No adverse reaction 01:26 Drug: Benadryl 12.5 mg Route: IVP; Site: right antecubital; rr5 02:37 Follow up: Response: No adverse reaction 01:30 Drug: Xopenex 1.25 mg Route: Inhalation; rr5 02:36 Follow up: Response: No adverse reaction Disposition: 05/28/19 02:14 Discharged to Home. Impression: Dyspnea, unspecified. - Condition is Stable. - Discharge Instructions: Hyperventilation, Shortness of Breath. - Medication Reconciliation Form, Thank You Letter, Antibiotic Education, Prescription Opioid Use form. - Follow up: Private Physician; When: As needed; Reason: Recheck today's complaints, Re-evaluation by your physician. - Problem is new. - Symptoms have improved. Signatures: Dispatcher [employer] Jean Garcia MD MD rn Yen, Tacho Beth Weeks cc3 Jose Sesay RN RN rr5 Corrections: (The following items were deleted from the chart) 02:37 02:14 05/28/2019 02:14 Discharged to Home. Impression: Dyspnea, unspecified. Condition is Stable. Forms are Medication Reconciliation Form, Thank You Letter, Antibiotic Education, Prescription Opioid Use. Follow up: Private Physician; When: As needed; Reason: Recheck today's complaints, Re-evaluation by your physician. Problem is new. Symptoms have improved. rn
--- NOTE | 2019-05-28 02:15 | ER ---
Nurse's Notes [facility] Name: Yeyo Pelayo Age: 78 yrs Sex: Male : 1940 Arrival Date: 05/28/2019 Time: 01:14 Bed 13 Private MD: Diagnosis: Dyspnea, unspecified Presentation: 05/28 01:30 Presenting complaint: Patient states: woke up about half an hour ago with shortness of wh breath and feeling of something stuck on his throat. Transition of care: patient was not received from another setting of care. Onset of symptoms was May 28, 2019. Risk Assessment: Do you want to hurt yourself or someone else? Patient reports no desire to harm self or others. Initial Sepsis Screen: Does the patient meet any 2 criteria? No. Patient's initial sepsis screen is negative. Does the patient have a suspected source of infection? No. Patient's initial sepsis screen is negative. Care prior to arrival: None. 01:30 Method Of Arrival: Wheelchair 01:30 Acuity: KEN 3 Triage Assessment: 01:41 Respiratory: Onset: The symptoms/episode began/occurred suddenly, the patient has mild wh shortness of breath. Historical: - Allergies: 01:37 No Known Allergies; cc3 - Home Meds: 01:37 amlodipine-benazepril 5-20 mg Oral cap 1 cap once daily [Active]; glimepiride 4 mg Oral cc3 tab 1 tab twice a day [Active]; - PMHx: 01:37 Diabetes - NIDDM; Hypertension; Kidney stones; cc3 - Immunization history:: Adult Immunizations unknown. - Social history:: Smoking status: Patient/guardian denies using tobacco. - Family history:: not pertinent. - Ebola Screening: : Patient negative for fever greater than or equal to 101.5 degrees Fahrenheit, and additional compatible Ebola Virus Disease symptoms Patient denies exposure to infectious person. - Hospitalizations: : No recent hospitalization is reported. Screenin:30 Abuse screen: Denies threats or abuse. Denies injuries from another. Nutritional wh screening: No deficits noted. Tuberculosis screening: No symptoms or risk factors identified. Fall Risk None identified. Assessment: 01:40 General: Appears in no apparent distress. Behavior is cooperative, appropriate for age, wh anxious. Pain: Denies pain. Neuro: Level of Consciousness is awake, alert, obeys commands. Cardiovascular: Heart tones S1 S2 Rhythm is regular. Respiratory: Reports shortness of breath Airway is patent Respiratory effort is even, unlabored, Respiratory pattern is regular, symmetrical, Breath sounds are clear. GI: Abdomen is flat, non-distended. : No signs and/or symptoms were reported regarding the genitourinary system. EENT: EENT: Throat is pink. Derm: Skin is intact, is healthy with good turgor, Skin is pink, warm \T\ dry. normal. Musculoskeletal: Circulation, motion, and sensation intact. 02:35 Reassessment: Patient appears in no apparent distress at this time. No changes from previously documented assessment. Patient and/or family updated on plan of care and expected duration. Pain level reassessed. Patient is alert, oriented x 3, equal unlabored respirations, skin warm/dry/pink. Patient denies pain at this time. Patient states feeling better. Patient states symptoms have improved. Vital Signs: 01:42 BP 176 / 89; Pulse 79; Resp 18; Temp 98.2; Pulse Ox 100% on R/A; wh 02:30 BP 134 / 69; Pulse 62; Resp 18; Pulse Ox 95% on R/A; wh ED Course: 01:14 Patient arrived in ED. fc 01:17 Jean Madera MD is Attending Physician. rn 01:25 Inserted saline lock: 22 gauge in right antecubital area, using aseptic technique. rr5 Blood collected. 01:30 Initial Neb Treatment Given as ordered Patient was instructed and evaluated on rr5 procedure. 01:36 Tacho Barlow is Primary Nurse. wh 01:39 Triage completed. wh 01:40 Patient has correct armband on for positive identification. Placed in gown. Bed in low wh position. Call light in reach. Side rails up X 1. library monitor on. Pulse ox on. NIBP on. 01:42 Arm band placed on. wh 01:52 X-ray completed. Portable x-ray completed in exam room. Patient tolerated procedure mh1 well. 01:53 XRAY Chest (1 view) In Process Unspecified. EDMS 02:35 No provider procedures requiring assistance completed. IV discontinued, intact, wh bleeding controlled, No redness/swelling at site. Administered Medications: 01:25 Drug: SOLU-Medrol 125 mg Route: IVP; Site: right antecubital; rr5 02:36 Follow up: Response: No adverse reaction 01:26 Drug: Benadryl 12.5 mg Route: IVP; Site: right antecubital; rr5 02:37 Follow up: Response: No adverse reaction 01:30 Drug: Xopenex 1.25 mg Route: Inhalation; rr5 02:36 Follow up: Response: No adverse reaction Outcome: 02:14 Discharge ordered by . rn 02:35 Discharged to home ambulatory, with family. 02:35 Condition: good 02:35 Discharge instructions given to patient, family, Instructed on discharge instructions, follow up and referral plans. POC Hyperventilation Demonstrated understanding of instructions, follow-up care, POC 02:37 Patient left the ED. Signatures: Dispatcher [employer] EDMS Yolanda Vidal 1 Loreta Perera RN RN Jean Lentz MD MD rn [place], Winsy Beth Weeks 3 Jose Sesay RN RN rr5
[2019-05-28 02:42] VITALS: TEMP 98.2
[2019-05-28 02:43] VITALS: BP 134/69; O2SAT 95
--- NOTE | 2019-05-28 10:57 | RAD REPORT ---
EXAM DESCRIPTION: RAD - Chest Single View - 05/28/2019 1:52 am CLINICAL HISTORY: DYSPNEA Chest pain. COMPARISON: Chest Single View dated 12/16/2018; Abdomen 1 View (KUB) dated 11/12/2018; Chest Pa And Lat (2 Views) dated 11/08/2018; Chest Single View dated 09/26/2018 FINDINGS: Portable technique limits examination quality. The lungs are grossly clear. The heart is normal in size. No displaced fractures. IMPRESSION: No acute intrathoracic process suspected.
--- NOTE | 2019-05-29 13:05 | EKG ---
Test Date: 2019-05-28 Test Time: 01:29:09 Student Accounts Coordinator: CHRISTINA MEASUREMENT RESULTS: Intervals: Rate: 71 PA: 208 QRSD: 144 QT: 450 QTc: 489 [place]: P: 42 PA: 208 QRS: 46 T: 37 INTERPRETIVE STATEMENTS: Normal sinus rhythm Right bundle branch block Abnormal ECG Compared to ECG 05/28/2019 01:24:55 First degree AV block no longer present Electronically Signed On 05-29-19 13:03:45 CDT by Alejandro Yap
== END 2019-05-28 02:37 | disposition home or self-care (01) ==
LOC: ER 01:11
DX: R06.00 Dyspnea, unspecified (principal); I10 Essential (primary) hypertension; E11.9 Type 2 diabetes mellitus without complications
CPT/HCPCS: 93005; 85025; 80048; 36415; 84484; 71045; 96375; 96374; 99285; J1200; J2930

== ENCOUNTER 2019-08-31 11:10 | Emergency (ER) | payer MEDICARE ==
--- NOTE | 2019-08-31 12:28 | ER ---
Nurse's Notes [facility] Name: Yeyo Pelayo Age: 78 yrs Sex: Male : 1940 Arrival Date: 08/31/2019 Time: 11:12 Bed 2 Private MD: Diagnosis: Acute sinusitis, unspecified Presentation: 08/31 11:13 Presenting complaint: Patient states: sinus pain/congestion, post nasal drip x 2 weeks. sv Transition of care: patient was not received from another setting of care. Onset of symptoms was August 2019. Risk Assessment: Do you want to hurt yourself or someone else? Patient reports no desire to harm self or others. Care prior to arrival: None. 11:13 Method Of Arrival: Ambulatory sv 11:13 Acuity: KEN 4 sv Historical: - Allergies: 11:14 No Known Allergies; sv - PMHx: 11:14 Diabetes - NIDDM; Hypertension; Kidney stones; sv - Immunization history:: Adult Immunizations up to date. - Social history:: Smoking status: Patient/guardian denies using tobacco. - Ebola Screening: : No symptoms or risks identified at this time. Screenin:20 Abuse screen: Denies threats or abuse. Denies injuries from another. Nutritional sg screening: No deficits noted. Tuberculosis screening: No symptoms or risk factors identified. Never had TB. Fall Risk None identified. Assessment: 12:30 General: Appears in no apparent distress. well groomed, well developed, well nourished, sg Behavior is calm, cooperative, appropriate for age. Pain: Complains of pain in left frontal sinus Quality of pain is described as dull, throbbing. Neuro: Level of Consciousness is awake, alert, obeys commands, Oriented to person, place, time, Restaurant Assistant are equal bilaterally. Cardiovascular: Capillary refill is brisk in bilateral fingers Patient's skin is warm and dry. Chest pain is denied. Respiratory: Airway is patent Respiratory effort is even, unlabored, Respiratory pattern is regular, symmetrical. GI: Abdomen is round non-distended, Reports tolerance of fluids, tolerance of food. : No signs and/or symptoms were reported regarding the genitourinary system. EENT: Nares are clear bilaterally Oral mucosa is moist. Throat is pink Reports nasal congestion pain in left frontal sinus. Derm: No signs and/or symptoms reported regarding the dermatologic system. Musculoskeletal: Circulation, motion, and sensation intact. Range of motion: intact in all extremities. Vital Signs: 11:14 BP 170 / 73; Pulse 92; Resp 18; Temp 97.8; Pulse Ox 99% ; Weight 77.11 kg; Height 6 ft. sv 1 in. (185.42 cm); 11:14 Body Mass Index 22.43 (77.11 kg, 185.42 cm) sv ED Course: 11:12 Patient arrived in ED. as 11:14 Triage completed. sv 11:14 Arm band placed on Patient placed in waiting room, Patient notified of wait time. sv 11:52 Dunia Anderson, RN is Primary Nurse. ca1 11:52 [facility] la1 11:52 Kyree Cox MD is Attending Physician. la1 12:00 No provider procedures requiring assistance completed. Patient did not have IV access sg during this emergency room visit. 12:30 Patient has correct armband on for positive identification. Bed in low position. Call sg light in reach. Pulse ox on. NIBP on. Warm blanket given. Head of bed elevated. Administered Medications: No medications were administered Outcome: 12:27 Discharge ordered by . la1 12:30 Discharged to home ambulatory. sg 12:30 Condition: good 12:30 Discharge instructions given to patient, Instructed on discharge instructions, follow up and referral plans. safety practices, Demonstrated understanding of instructions, follow-up care, medications, Prescriptions given X 1. 12:33 Patient left the ED. sg Signatures: Yakelin Gutierrez RN RN sv Gay, Steven, RN RN Kendal Nguyen Lee, FNP-C FNP-[facility] Dunia Anderson, RN RN ca1
--- NOTE | 2019-08-31 12:28 | EDPHYS ---
Physician Documentation [facility] Name: Yeyo Pelayo Age: 78 yrs Sex: Male : 1940 Arrival Date: 08/31/2019 Time: 11:12 Bed 2 Private MD: ED Physician Kyree Cox HPI: 08/31 12:22 This 78 yrs old Male presents to ER via Ambulatory with complaints of Sinus la1 Congestion, Sinus Pain. 12:22 Onset: The symptoms/episode began/occurred 1 month(s) ago. Severity of symptoms: At la1 their worst the symptoms were mild, in the emergency department the symptoms are unchanged. Modifying factors: The symptoms are alleviated by nothing, the symptoms are aggravated by nothing. The patient has not experienced similar symptoms in the past. Pt reports left sided facial pain with sinus drainage for the last month, was reading on the internet today and found that sinus infection can be life threatening, attempted to schedule apt with PCP but could not be seen for one week. . Historical: - Allergies: 11:14 No Known Allergies; sv - PMHx: 11:14 Diabetes - NIDDM; Hypertension; Kidney stones; sv - Immunization history:: Adult Immunizations up to date. - Social history:: Smoking status: Patient/guardian denies using tobacco. - Ebola Screening: : No symptoms or risks identified at this time. ROS: 12:24 Constitutional: Negative for fever, chills, and weight loss, Eyes: Negative for injury, la1 pain, redness, and discharge. 12:24 Neck: Negative for injury, pain, and swelling, Cardiovascular: Negative for chest pain, palpitations, and edema, Respiratory: Negative for shortness of breath, cough, wheezing, and pleuritic chest pain, Abdomen/GI: Negative for abdominal pain, nausea, vomiting, diarrhea, and constipation, Back: Negative for injury and pain, MS/Extremity: Negative for injury and deformity, Neuro: Negative for headache, weakness, numbness, tingling, and seizure. 12:24 ENT: Positive for sinus congestion, sinus pain. Exam: 12:24 Constitutional: This is a well developed, well nourished patient who is awake, alert, la1 and in no acute distress. Head/Face: Normocephalic, atraumatic. Eyes: Pupils equal round and reactive to light, extra-ocular motions intact. Lids and lashes normal. Conjunctiva and sclera are non-icteric and not injected. Cornea within normal limits. Periorbital areas with no swelling, redness, or edema. 12:24 Neck: Trachea midline and no cervical lymphadenopathy. Supple, full range of motion without nuchal rigidity, or vertebral point tenderness. No Meningismus. Chest/axilla: Normal chest wall appearance and motion. Nontender with no deformity. No lesions are appreciated. Cardiovascular: Regular rate and rhythm with a normal S1 and S2. No gallops, murmurs, or rubs. Normal PMI, no JVD. No pulse deficits. Respiratory: Lungs have equal breath sounds bilaterally, clear to auscultation and No rales, rhonchi or wheezes noted. No increased work of breathing, no retractions or nasal flaring. Abdomen/GI: Soft, non-tender, with normal bowel sounds. No distension or tympany. No guarding or rebound. No evidence of tenderness throughout. Back: No spinal tenderness. No costovertebral tenderness. Full range of motion. Skin: Warm, dry with normal turgor. Normal color with no rashes, no lesions, and no evidence of cellulitis. MS/ Extremity: Pulses equal, no cyanosis. Neurovascular intact. Full, normal range of motion. Neuro: Awake and alert, GCS 15, oriented to person, place, time, and situation. Normal gait. 12:24 Head/face: Sinus tenderness, that is moderate, is located over the left frontal sinus, left ethmoid sinus and left maxillary sinus. Vital Signs: 11:14 BP 170 / 73; Pulse 92; Resp 18; Temp 97.8; Pulse Ox 99% ; Weight 77.11 kg; Height 6 ft. sv 1 in. (185.42 cm); 11:14 Body Mass Index 22.43 (77.11 kg, 185.42 cm) sv MDM: 11:52 Patient medically screened. la1 12:25 Differential Diagnosis: Upper Respiratory Infection Sinusitis Pharyngitis Otitis Media la1 Allergic Rhinitis Viral Syndrome. Data reviewed: vital signs, nurses notes, and as a result, I will discharge patient. Data interpreted: Pulse oximetry: on room air is 99 %. Interpretation: normal. Counseling: I had a detailed discussion with the patient and/or guardian regarding: the historical points, exam findings, and any diagnostic results supporting the discharge/admit diagnosis, the need for outpatient follow up, a family practitioner. Special discussion: Based on the patient's history, exam, and Dx evaluation, there is no indication for emergent intervention or inpatient Tx. It is understood by the patient/guardian that if the Sx's persist or worsen they need to return immediately for re-evaluation. Administered Medications: No medications were administered Disposition: 16:44 Co-signature as Attending Physician, Kyree Cox MD I agree with the assessment and juana plan of care. Disposition: 08/31/19 12:27 Discharged to Home. Impression: Acute sinusitis, unspecified. - Condition is Stable. - Discharge Instructions: Sinusitis, Adult, Sinusitis, Adult, [id number]. - Prescriptions for Augmentin 875- 125 mg Oral Tablet - take 1 tablet by ORAL route every 12 hours for 10 days; 20 tablet. - Medication Reconciliation Form, Thank You Letter, Antibiotic Education form. - Follow up: Private Physician; When: 5 - 6 days; Reason: Recheck today's complaints, Re-evaluation by your physician. Follow up: Emergency Department; When: As needed; Reason: Fever > 102 F, Trouble breathing, Worsening of condition. - Problem is new. - Symptoms are unchanged. Signatures: aYkelin Gutierrez RN RN sv Gay, Steven, RN RN sg Anderson, Corey, MD MD cha Attema, Lee, STEEL UNLOADER-C STEEL UNLOADER-Cla1 Corrections: (The following items were deleted from the chart) 12:33 12:27 08/31/2019 12:27 Discharged to Home. Impression: Acute sinusitis, unspecified. sg Condition is Stable. Forms are Medication Reconciliation Form, Thank You Letter, Antibiotic Education, Prescription Opioid Use. Follow up: Private Physician; When: 5 - 6 days; Reason: Recheck today's complaints, Re-evaluation by your physician. Follow up: Emergency Department; When: As needed; Reason: Fever > 102 F, Trouble breathing, Worsening of condition. Problem is new. Symptoms are unchanged. la1
[2019-08-31 12:37] VITALS: BP 170/73; TEMP 97.8; O2SAT 99
== END 2019-08-31 12:33 | disposition home or self-care (01) ==
LOC: ER 11:10
DX: J01.90 Acute sinusitis, unspecified (principal)
CPT/HCPCS: 99283

== ENCOUNTER 2020-08-19 16:43 | Emergency (ER) | payer MEDICARE ==
[2020-08-19] MEDS ORDERED: Mastisol Adhesive Liq ONE (17:55)
--- NOTE | 2020-08-19 18:20 | ER ---
Nurse's Notes [facility] Name: Yeyo Pelayo Age: 79 yrs Sex: Male : 1940 Arrival Date: 08/19/2020 Time: 16:44 Bed 19 Private MD: Diagnosis: Allergic rhinitis, unspecified;Other seasonal allergic rhinitis;Essential (primary) hypertension Presentation: 08/19 17:30 Chief complaint: Patient states: "I know this is all form cedar pollen allergies, ss because it's happened before. It gets bad when the wind blows in the direction from my neighbors house where there are the cedar trees to my house. I'm here because I looked on the internet and it said with cedar pollen I need to come to the ER." Pt c/o "blurry eyes", slight headache, nasal drainage and trouble sleeping x 2-3 months. Coronavirus screen: Client denies travel out of the [place] in the last 14 days. Ebola Screen: Patient denies exposure to infectious person. Patient denies travel to an Ebola-affected area in the 21 days before illness onset. Onset: The symptoms/episode began/occurred 3 month(s) ago. Anaphylaxis evaluation, no signs or symptoms of anaphylaxis were noted. Initial Sepsis Screen: Does the patient meet any 2 criteria? No. Patient's initial sepsis screen is negative. Does the patient have a suspected source of infection? No. Patient's initial sepsis screen is negative. Risk Assessment: Do you want to hurt yourself or someone else? Patient reports no desire to harm self or others. Onset of symptoms was May 2020. 17:30 Method Of Arrival: Ambulatory ss 17:30 Acuity: KEN 5 ss Historical: - Allergies: 17:33 No Known Allergies; ss - PMHx: 17:33 Diabetes - NIDDM; Hypertension; Kidney stones; ss - Immunization history:: Adult Immunizations up to date. - Social history:: Smoking status: Patient denies any tobacco usage or history of. - Family history:: not pertinent. Screenin:45 Abuse screen: Denies threats or abuse. Nutritional screening: No deficits noted. vg1 Tuberculosis screening: No symptoms or risk factors identified. Fall Risk No fall in past 12 months (0 pts). No secondary diagnosis (0 pts). No IV (0 pts). Ambulatory Aid- None/Bed Rest/Nurse Assist (0 pts). Gait- Normal/Bed Rest/Wheelchair (0 pts) Mental Status- Overestimates/Forgets Limitations (15 pts.). Total Perry Fall Scale indicates No Risk (0-24 pts). Assessment: 17:40 General: Appears in no apparent distress. comfortable, Behavior is calm, cooperative. vg1 17:40 Pain: Denies pain. Neuro: Level of Consciousness is awake, alert, obeys commands, vg1 Oriented to person, place, time, situation. Cardiovascular: Patient's skin is warm and dry. Respiratory: Airway is patent Respiratory effort is even, unlabored, Respiratory pattern is regular, symmetrical, Breath sounds with wheezes bilaterally. in left posterior upper lobe and right posterior upper lobe. GI: No signs and/or symptoms were reported involving the gastrointestinal system. : No signs and/or symptoms were reported regarding the genitourinary system. EENT: Nares are clear Oral mucosa is moist. Throat is pink Reports nasal discharge that is yellow. Derm: Skin is intact, is healthy with good turgor. Musculoskeletal: Circulation, motion, and sensation intact. 17:53 Reassessment: Patient also stated has R side arm pain sometimes but denies pain at this vg1 time. Vital Signs: 17:30 BP 179 / 93; Pulse 75; Resp 17; Temp 97.6(TE); Pulse Ox 99% on R/A; Weight 80.74 kg; Height 6 ft. 1 in. (185.42 cm); Pain 0/10; 17:45 BP 189 / 76; Pulse 73; Resp 16; Pulse Ox 100% on R/A; vg1 18:30 BP 183 / 78; Pulse 66; Resp 16; Pulse Ox 100% on R/A; vg1 17:30 Body Mass Index 23.48 (80.74 kg, 185.42 cm) ED Course: 16:44 Patient arrived in ED. rg4 17:33 Triage completed. 17:33 Arm band placed on left wrist. 17:34 Kyree Cox MD is Attending Physician. [facility] 17:37 Yissel Faria, RN is Primary Nurse. vg1 17:45 Patient has correct armband on for positive identification. Bed in low position. Call vg1 light in reach. 18:18 Lalo Munroe DO is Referral Physician. juana 18:18 Heriberto Ferro MD is Referral Physician. [facility] 18:34 No provider procedures requiring assistance completed. Patient did not have IV access vg1 during this emergency room visit. Administered Medications: 18:33 Drug: predniSONE 60 mg Route: PO; vg1 18:33 Follow up: Response: Medication administered at discharge. vg1 Outcome: 18:19 Discharge ordered by . [facility] 18:34 Discharged to home ambulatory. vg1 18:34 Condition: stable 18:34 Discharge instructions given to patient, Instructed on discharge instructions, follow up and referral plans. medication usage, Demonstrated understanding of instructions, follow-up care, medications, Prescriptions given X 3. 18:35 Patient left the ED. vg1 Signatures: Kyree Cox MD MD cha Smirch, Shelby, RN RN Marielena Faria Victoria, RN RN vg1
--- NOTE | 2020-08-19 18:20 | EDPHYS ---
Physician Documentation [facility] Name: Yeyo Pelayo Age: 79 yrs Sex: Male : 1940 Arrival Date: 08/19/2020 Time: 16:44 Bed 19 Private MD: ED Physician Kyree Cox HPI: 08/19 18:10 This 79 yrs old Male presents to ER via Ambulatory with complaints of Allergy juana Symptoms. 18:10 cedar allergies,congested nasally. Onset: The symptoms/episode began/occurred 3 day(s) juana ago. Severity of symptoms: At their worst the symptoms were mild in the emergency department the symptoms are unchanged. The patient has not experienced similar symptoms in the past. Historical: - Allergies: 17:33 No Known Allergies; ss - PMHx: 17:33 Diabetes - NIDDM; Hypertension; Kidney stones; ss - Immunization history:: Adult Immunizations up to date. - Social history:: Smoking status: Patient denies any tobacco usage or history of. - Family history:: not pertinent. ROS: 18:10 Constitutional: Negative for fever, chills, and weight loss, Eyes: Negative for injury, juana pain, redness, and discharge, Neck: Negative for injury, pain, and swelling, Cardiovascular: Negative for chest pain, palpitations, and edema, Respiratory: Negative for shortness of breath, cough, wheezing, and pleuritic chest pain, Abdomen/GI: Negative for abdominal pain, nausea, vomiting, diarrhea, and constipation, Back: Negative for injury and pain, : Negative for injury, bleeding, discharge, and swelling, MS/Extremity: Negative for injury and deformity, Skin: Negative for injury, rash, and discoloration, Neuro: Negative for headache, weakness, numbness, tingling, and seizure, Psych: Negative for depression, anxiety, suicide ideation, homicidal ideation, and hallucinations, Allergy/Immunology: Negative for hives, rash, and allergies, Endocrine: Negative for neck swelling, polydipsia, polyuria, polyphagia, and marked weight changes, Hematologic/Lymphatic: Negative for swollen nodes, abnormal bleeding, and unusual bruising. 18:10 ENT: Positive for rhinorrhea, sinus congestion. Exam: 18:10 Constitutional: This is a well developed, well nourished patient who is awake, alert, juana and in no acute distress. Head/Face: Normocephalic, atraumatic. Eyes: Pupils equal round and reactive to light, extra-ocular motions intact. Lids and lashes normal. Conjunctiva and sclera are non-icteric and not injected. Cornea within normal limits. Periorbital areas with no swelling, redness, or edema. Neck: Trachea midline, no thyromegaly or masses palpated, and no cervical lymphadenopathy. Supple, full range of motion without nuchal rigidity, or vertebral point tenderness. No Meningismus. Chest/axilla: Normal chest wall appearance and motion. Nontender with no deformity. No lesions are appreciated. Cardiovascular: Regular rate and rhythm with a normal S1 and S2. No gallops, murmurs, or rubs. Normal PMI, no JVD. No pulse deficits. Respiratory: Lungs have equal breath sounds bilaterally, clear to auscultation and percussion. No rales, rhonchi or wheezes noted. No increased work of breathing, no retractions or nasal flaring. Abdomen/GI: Soft, non-tender, with normal bowel sounds. No distension or tympany. No guarding or rebound. No evidence of tenderness throughout. Back: No spinal tenderness. No costovertebral tenderness. Full range of motion. Male : Normal genitalia with no discharge or lesions. Skin: Warm, dry with normal turgor. Normal color with no rashes, no lesions, and no evidence of cellulitis. MS/ Extremity: Pulses equal, no cyanosis. Neurovascular intact. Full, normal range of motion. Neuro: Awake and alert, GCS 15, oriented to person, place, time, and situation. Cranial nerves II-XII grossly intact. Motor strength 5/5 in all extremities. Sensory grossly intact. Cerebellar exam normal. Normal gait. Psych: Awake, alert, with orientation to person, place and time. Behavior, mood, and affect are within normal limits. 18:10 ENT: Nose: External nose: no obvious acute abnormality, Nasal septum: is midline, Nasal mucosa: edematous, erythematous, Turbinates: are normal, abrasion, is not appreciated, bleeding, is not appreciated, clotted blood, is not appreciated, nasal drainage, that is minimal, and is seen coming from both nares, that is clear. Vital Signs: 17:30 BP 179 / 93; Pulse 75; Resp 17; Temp 97.6(TE); Pulse Ox 99% on R/A; Weight 80.74 kg; ss Height 6 ft. 1 in. (185.42 cm); Pain 0/10; 17:45 BP 189 / 76; Pulse 73; Resp 16; Pulse Ox 100% on R/A; vg1 18:30 BP 183 / 78; Pulse 66; Resp 16; Pulse Ox 100% on R/A; vg1 17:30 Body Mass Index 23.48 (80.74 kg, 185.42 cm) MDM: 17:34 Patient medically screened. [facility] 18:16 Data reviewed: vital signs, nurses notes. Data interpreted: engine monitor: rate is 73 juana beats/min, rhythm is regular, Pulse oximetry: on room air is 100 %. Administered Medications: 18:33 Drug: predniSONE 60 mg Route: PO; vg1 18:33 Follow up: Response: Medication administered at discharge. vg1 Disposition: 08/19/20 18:19 Discharged to Home. Impression: Allergic rhinitis, unspecified, Other seasonal allergic rhinitis, Essential (primary) hypertension. - Condition is Stable. - Discharge Instructions: Allergies, Adult, Nasal Allergies, Hypertension, Allergic Rhinitis, Hypertension, [id number], Cough, Adult, [id number]-[id number], Nasal Allergies, Ymjm-mr-Izka. - Prescriptions for Flonase Allergy Relief 50 mcg/actuation Nasal spray,suspension - inhale 2 spray by INTRANASAL route once daily; 1 bottle. Claritin 10 mg Oral Tablet - take 1 tablet by ORAL route once daily As needed; 30 tablet. Medrol (Tanner) 4 mg Oral Tablets, Dose Pack - take 1 tablet by ORAL route as directed - follow package instructions; 1 packet. - Medication Reconciliation Form, Thank You Letter, Antibiotic Education, Prescription Opioid Use form. - Follow up: Lalo Munroe DO; When: 2 - 3 days; Reason: Recheck today's complaints, Continuance of care, Re-evaluation by your physician. Follow up: Heriberto Ferro MD; When: 2 - 3 days; Reason: Recheck today's complaints, Re-evaluation by your physician. - Problem is new. - Symptoms have improved. Signatures: Kyree Cox MD MD cha Smirch, Shelby, RN RN Yissel Faria RN RN vg1 Corrections: (The following items were deleted from the chart) 18:35 18:19 08/19/2020 18:19 Discharged to Home. Impression: Allergic rhinitis, unspecified; vg1 Other seasonal allergic rhinitis; Essential (primary) hypertension. Condition is Stable. Forms are Medication Reconciliation Form, Thank You Letter, Antibiotic Education, Prescription Opioid Use. Follow up: Lalo Munroe; When: 2 - 3 days; Reason: Recheck today's complaints, Continuance of care, Re-evaluation by your physician. Follow up: Heriberto Ferro; When: 2 - 3 days; Reason: Recheck today's complaints, Re-evaluation by your physician. Problem is new. Symptoms have improved. juana
[2020-08-19] MEDS ORDERED: predniSONE 20 MG TAB ONE (18:37)
[2020-08-19 18:40] VITALS: TEMP 97.6
[2020-08-19 18:41] VITALS: O2SAT 100
[2020-08-19 18:42] VITALS: BP 183/78
== END 2020-08-19 18:35 | disposition home or self-care (01) ==
LOC: ER 16:43
DX: J30.2 Other seasonal allergic rhinitis (principal); I10 Essential (primary) hypertension; E11.9 Type 2 diabetes mellitus without complications
CPT/HCPCS: 99283; J7512

== ENCOUNTER 2021-01-20 17:06 | Emergency (ER) | payer MEDICARE ==
[2021-01-20 18:36] LABS: Urine Blood Negative (Negative); Urine Glucose Negative (Negative); Urine Protein Negative (Negative); Urine pH 5.5 (5.0-7.0)
[2021-01-20] MEDS ORDERED: NA CHLORIDE 0.9% 1,000 ML ONE (18:45)
[2021-01-20 19:05] LABS: Absolute Lymphocytes (CBC) 1.3 K/uL (0.7-4.9); Basophils % 0.9 % (0-1.3); Hematocrit 44.7 % (39.6-49.0); Lymphocytes % 14.9 % (15.3-44.8); MPV 7.9 fL (7.6-11.3)
[2021-01-20 19:15] LABS: Protime INR 0.99
[2021-01-20 19:24] LABS: ALT/SGPT 24 U/L (12-78); AST/SGOT 18 U/L (15-37); Albumin 3.8 g/dL (3.4-5.0); Alkaline Phosphatase 70 U/L (45-117); BUN Blood Urea Nitrogen 20 mg/dL (7-18); Bicarbonate 28 mmol/L (21-32); Bilirubin Direct < 0.1 mg/dL (0-0.2); Bilirubin Total 0.3 mg/dL (0.2-1.0); Glucose Level 179 mg/dL (74-106); Lipase 142 U/L (73-393); Magnesium 2.8 mg/dL (1.8-2.4); NT PRO-BNP 170 pg/mL (<450); Potassium 4.3 mmol/L (3.5-5.1); Protein, Total 8.5 g/dL (6.4-8.2); Sodium Level 140 mmol/L (136-145); Troponin (Emerg Dept Use Only) < 0.02 ng/mL (0.0-0.045)
[2021-01-20] MEDS ORDERED: FAMOTIDINE 20 MG/2 ML VIAL IV ONE (19:29)
--- NOTE | 2021-01-20 20:12 | RAD REPORT ---
EXAM DESCRIPTION: CT - Chest Abd Pelvis Wo Con - 01/20/2021 7:38 pm CLINICAL HISTORY: Chest and abdominal pain COMPARISON: CT abdomen 2019 TECHNIQUE: Computed axial tomography of the chest, abdomen and pelvis was obtained. Oral contrast wa s given. IV contrast was not requested. All CT scans are performed using dose optimization technique as appropriate and may include automated exposure control or mA/KV adjustment according to patient size. FINDINGS: The evaluation of mediastinum, feliz, vessels and solid organs is limited secondary to the lack of IV contrast administration A 4 millimeter nodule right middle lobe is unchanged likely benign No mediastinal or hilar lymphadenopathy is seen. A pleural effusion is not present. A pericardial effusion is not seen. The liver, spleen, pancreas, adrenals and kidneys appear grossly normal There is no evidence of diverticulitis. Normal appendix. Portion of gallbladder wall is calcified. Mild enlargement of the prostate gland. Moderate left inguinal hernia contains fat. Spondylosis involves lumbar spine resulting in spinal stenosis. Tiny umbilical hernia IMPRESSION: No acute abnormality displayed
--- NOTE | 2021-01-20 20:12 | RAD REPORT ---
EXAM DESCRIPTION: Ruchi Single View01/20/2021 6:44 pm CLINICAL HISTORY: Cough COMPARISON: 2018 FINDINGS: The lungs appear clear of acute infiltrate. The heart is normal size IMPRESSION: No acute abnormalities displayed
--- NOTE | 2021-01-20 20:34 | EDPHYS ---
Physician Documentation [facility] Name: Yeyo Pelayo Age: 80 yrs Sex: Male : 1940 Arrival Date: 01/20/2021 Time: 17:10 Bed 20 Private MD: ED Physician Kyree Cox HPI: 01/20 18:28 This 80 yrs old Male presents to ER via Ambulatory with complaints of Doesn't juana Feel Right. 18:28 The patient presents with abdominal distention in the upper abdomen, in the lower juana abdomen. Onset: The symptoms/episode began/occurred 3 day(s) ago. The patient presents with pain that is acute, and decreased range of motion, and tenderness. The symptoms are located in the left trapezius and left scapular area. Onset: The symptoms/episode began/occurred 3 day(s) ago. The pain does not radiate. Associated signs and symptoms: The patient has no apparent associated signs or symptoms. The problem was sustained from unknown cause. Modifying factors: The patient symptoms are alleviated by nothing, the patient symptoms are aggravated by nothing. Severity of symptoms: At their worst the symptoms were mild, moderate, in the emergency department the symptoms are unchanged. Historical: - Allergies: 17:49 No Known Allergies; aa5 - PMHx: 17:49 Diabetes - NIDDM; Hypertension; Kidney stones; aa5 - Immunization history:: Adult Immunizations unknown. - Social history:: Smoking status: Patient denies any tobacco usage or history of. - Family history:: not pertinent. ROS: 18:28 Constitutional: Negative for fever, chills, and weight loss, Eyes: Negative for injury, juana pain, redness, and discharge, ENT: Negative for injury, pain, and discharge, Neck: Negative for injury, pain, and swelling, Cardiovascular: Negative for chest pain, palpitations, and edema, Respiratory: Negative for shortness of breath, cough, wheezing, and pleuritic chest pain, : Negative for injury, bleeding, discharge, and swelling, MS/Extremity: Negative for injury and deformity, Skin: Negative for injury, rash, and discoloration, Neuro: Negative for headache, weakness, numbness, tingling, and seizure, Psych: Negative for depression, anxiety, suicide ideation, homicidal ideation, and hallucinations, Allergy/Immunology: Negative for hives, rash, and allergies, Endocrine: Negative for neck swelling, polydipsia, polyuria, polyphagia, and marked weight changes, Hematologic/Lymphatic: Negative for swollen nodes, abnormal bleeding, and unusual bruising. 18:28 Abdomen/GI: Positive for nausea, abdominal cramps. 18:28 Back: Positive for pain at rest, of the left trapezius and left scapular area. Exam: 18:28 Constitutional: This is a well developed, well nourished patient who is awake, alert, juana and in no acute distress. Head/Face: Normocephalic, atraumatic. Eyes: Pupils equal round and reactive to light, extra-ocular motions intact. Lids and lashes normal. Conjunctiva and sclera are non-icteric and not injected. Cornea within normal limits. Periorbital areas with no swelling, redness, or edema. ENT: Nares patent. No nasal discharge, no septal abnormalities noted. Tympanic membranes are normal and external auditory canals are clear. Oropharynx with no redness, swelling, or masses, exudates, or evidence of obstruction, uvula midline. Mucous membranes moist. Neck: Trachea midline, no thyromegaly or masses palpated, and no cervical lymphadenopathy. Supple, full range of motion without nuchal rigidity, or vertebral point tenderness. No Meningismus. Chest/axilla: Normal chest wall appearance and motion. Nontender with no deformity. No lesions are appreciated. Cardiovascular: Regular rate and rhythm with a normal S1 and S2. No gallops, murmurs, or rubs. Normal PMI, no JVD. No pulse deficits. Respiratory: Lungs have equal breath sounds bilaterally, clear to auscultation and percussion. No rales, rhonchi or wheezes noted. No increased work of breathing, no retractions or nasal flaring. Abdomen/GI: Soft, non-tender, with normal bowel sounds. No distension or tympany. No guarding or rebound. No evidence of tenderness throughout. Back: No spinal tenderness. No costovertebral tenderness. Full range of motion. Male : Normal genitalia with no discharge or lesions. Skin: Warm, dry with normal turgor. Normal color with no rashes, no lesions, and no evidence of cellulitis. MS/ Extremity: Pulses equal, no cyanosis. Neurovascular intact. Full, normal range of motion. Neuro: Awake and alert, GCS 15, oriented to person, place, time, and situation. Cranial nerves II-XII grossly intact. Motor strength 5/5 in all extremities. Sensory grossly intact. Cerebellar exam normal. Normal gait. Psych: Awake, alert, with orientation to person, place and time. Behavior, mood, and affect are within normal limits. 18:28 Musculoskeletal/extremity: DVT Exam: No signs of deep vein thrombosis. no pain, no swelling, no tenderness, negative Homans' sign noted on exam, no appreciated bluish discoloration, no erythema, no increased warmth. 18:33 ECG was reviewed by the Attending Physician. [facility] Vital Signs: 17:43 BP 160 / 101; Pulse 100; Resp 18 S; Temp 98.6(O); Pulse Ox 98% on R/A; Weight 81.65 kg aa5 (R); Height 6 ft. 1 in. (185.42 cm) (R); 19:31 BP 167 / 78; Pulse 85 RA; ak2 19:31 BP 167 / 82 LA; Pulse 81; ak2 21:01 BP 154 / 76; Pulse 76; Resp 20; Pulse Ox 98% on R/A; ak2 17:43 Body Mass Index 23.75 (81.65 kg, 185.42 cm) aa5 MDM: 18:08 Patient medically screened. [facility] 18:34 Differential diagnosis: Ureterolithiasis AAA, acute coronary syndrome, cholecystitis, juana diverticulitis, gastritis, gastroesophageal reflux disease, Mesenteric ischemia or infarction, myocardia ischemia or infarction, non-specific abd pain, pancreatitis, Peptic Ulcer Disease. Data reviewed: vital signs, nurses notes, lab test result(s), EKG, radiologic studies, CT scan, plain films. Data interpreted: prison classification counselor: rate is 100 beats/min, rhythm is regular, Pulse oximetry: on room air is 98 %. Test interpretation: by ED physician or midlevel provider: ECG, plain radiologic studies. Counseling: I had a detailed discussion with the patient and/or guardian regarding: the historical points, exam findings, and any diagnostic results supporting the discharge/admit diagnosis, the presence of at least one elevated blood pressure reading (>120/80) during this emergency department visit, lab results, radiology results. Medical screen evaluation completed. EMTALA emergency medical condition absent. 20:28 Counseling: I had a detailed discussion with the patient and/or guardian regarding: the pm1 need for outpatient follow up, to return to the emergency department if symptoms worsen or persist or if there are any questions or concerns that arise at home. 01/20 18:15 Order name: Basic Metabolic Panel; Complete Time: 19:27 [facility] 01/20 18:15 Order name: CBC with Diff; Complete Time: 19:24 [facility] 01/20 18:15 Order name: LFT's; Complete Time: 19:27 [facility] 01/20 18:15 Order name: Magnesium; Complete Time: 19:27 [facility] 01/20 18:15 Order name: NT PRO-BNP; Complete Time: 19:27 [facility] 01/20 18:15 Order name: PT-INR; Complete Time: 19:24 [facility] 01/20 18:15 Order name: Troponin (emerg Dept Use Only); Complete Time: 19:27 [facility] 01/20 18:15 Order name: XRAY Chest (1 view); Complete Time: 20:26 [facility] 01/20 18:15 Order name: Lipase; Complete Time: 19:27 [facility] 01/20 18:35 Order name: Urine Dipstick-Ancillary; Complete Time: 19:00 EDMN 01/20 19:05 Order name: Glucose, Ancillary Testing; Complete Time: 19:24 EDMN 01/20 19:26 Order name: Urine Culture [facility] 01/20 20:49 Order name: SARS-COV-2 RT PCR; Complete Time: 20:52 EDMN 01/20 18:15 Order name: EKG; Complete Time: 18:16 [facility] 01/20 18:15 Order name: Cardiac monitoring; Complete Time: 19:04 [facility] 01/20 18:15 Order name: EKG - Nurse/Tech; Complete Time: 18:23 [facility] 01/20 18:15 Order name: IV Saline Lock; Complete Time: 19:04 [facility] 01/20 18:15 Order name: Labs collected and sent; Complete Time: 19:04 [facility] 01/20 18:15 Order name: O2 Per Protocol; Complete Time: 18:23 [facility] 01/20 18:15 Order name: O2 Sat Monitoring; Complete Time: 18:23 [facility] 01/20 18:15 Order name: Urine Dipstick-Ancillary (obtain specimen); Complete Time: 18:35 [facility] 01/20 19:29 Order name: CT Chest Abdomen Pelvis W/O Contrast; Complete Time: 20:26 [facility] 01/20 19:29 Order name: Bilateral blood pressure juana EC:33 Rate is 91 beats/min. Rhythm is regular. QRS [place] is Normal. MD interval is prolonged. juana QRS interval is normal. QT interval is normal. No Q waves. T waves are Normal. No ST changes noted. Clinical impression: NSR w/ Non-specific ST/T Changes and No evidence of ischemia. Interpreted by me. Reviewed by me. Administered Medications: 19:03 Drug: NS 0.9% 1000 ml Route: IV; Rate: 125 ml/hr; Site: right forearm; tr6 19:04 Drug: NS 0.9% 500 ml Route: IV; Rate: bolus; Site: right forearm; tr6 19:11 Drug: Pepcid (famotidine) 20 mg Route: IVP; Site: right forearm; ak2 19:29 Drug: NS 0.9% 500 ml Route: IV; Rate: bolus; Site: right forearm; ak2 20:52 Drug: Lidoderm 5 % (700 mg/patch) 1 patches Route: Topical; Site: affected area; ak2 Disposition: 01/20/21 20:34 Discharged to Home. Impression: Functional dyspepsia, Type 2 diabetes mellitus, Essential (primary) hypertension, Unspecified kidney failure - chronic. - Condition is Stable. - Discharge Instructions: Hypertension, Indigestion, Hypertension, Rscf-co-Oyft, How to Take Your Blood Pressure, Hcsw-[id number], Aspirin and Your Heart, Chronic Kidney Disease, Adult, [id number], Managing Your Hypertension, Type 2 Diabetes Mellitus, Self Care, Adult, Fboo-vc-[id number]. - Prescriptions for Norvasc 5 mg Oral Tablet - take 1 tablet by ORAL route once daily; 20 tablet. Pepcid 20 mg Oral Tablet - take 1 tablet by ORAL route every 12 hours for 14 days; 28 tablet. - Medication Reconciliation Form, Thank You Letter, Antibiotic Education, Prescription Opioid Use form. - Follow up: Private Physician; When: 2 - 3 days; Reason: Recheck today's complaints, Continuance of care, Re-evaluation by your physician. Follow up: Alejandro Yap; When: 2 - 3 days; Reason: Recheck today's complaints, Re-evaluation by your physician. Follow up: Geeta Miranda; When: 2 - 3 days; Reason: Recheck today's complaints, Re-evaluation by your physician. - Problem is new. - Symptoms have improved. Addendum: 01/22/2021 07:51 Co-signature as Attending Physician, Kyree Cox MD I agree with the assessment and c abraham plan of care. Signatures: Dispatcher [employer] EDMN Kyree Cox MD MD cha Calderon, Audri, RN RN aa5 Cheikh Hazel, MAINTENANCE PARTS TECHNICIAN MAINTENANCE PARTS TECHNICIAN pm1 Chitra Larsen RN RN tr6 Kenn Leon ak2 Corrections: (The following items were deleted from the chart) 01/20 19:36 18:28 Angio Aorta For Dissection+CT.RAD.BRZ ordered. EDMN EDMS 19:53 18:16 CORONAVIRUS+MR.LAB.BRZ ordered. EDMN EDMS 21:02 20:34 01/20/2021 20:34 Discharged to Home. Impression: Functional dyspepsia; Type 2 ak2 diabetes mellitus; Essential (primary) hypertension; Unspecified kidney failure - chronic. Condition is Stable. Discharge Instructions: Hypertension, Indigestion, Hypertension, Rbgu-az-Iopi, How to Take Your Blood Pressure, Xvmu-ay-Laee, Aspirin and Your Heart, Chronic Kidney Disease, Adult, [id number]-[id number], Managing Your Hypertension, Type 2 Diabetes Mellitus, Self Care, Adult, Wryg-ew-Odih. Prescriptions for Norvasc 5 mg Oral Tablet - take 1 tablet by ORAL route once daily; 20 tablet, Pepcid 20 mg Oral Tablet - take 1 tablet by ORAL route every 12 hours for 14 days; 28 tablet. and Forms are Medication Reconciliation Form, Thank You Letter, Antibiotic Education, Prescription Opioid Use. Follow up: Private Physician; When: 2 - 3 days; Reason: Recheck today's complaints, Continuance of care, Re-evaluation by your physician. Follow up: Alejandro Yap; When: 2 - 3 days; Reason: Recheck today's complaints, Re-evaluation by your physician. Follow up: Geeta Miranda; When: 2 - 3 days; Reason: Recheck today's complaints, Re-evaluation by your physician. Problem is new. Symptoms have improved. pm1
--- NOTE | 2021-01-20 20:34 | ER ---
Nurse's Notes [facility] Name: Yeyo Pelayo Age: 80 yrs Sex: Male : 1940 Arrival Date: 01/20/2021 Time: 17:10 Bed 20 Private MD: Diagnosis: Functional dyspepsia;Type 2 diabetes mellitus;Essential (primary) hypertension;Unspecified kidney failure-chronic Presentation: 01/20 17:43 Chief complaint: Chief complaint: Patient states: "I have a bleeding ulcer and I have aa5 pain". Pt reports he has not been diagnosed with an ulcer. Pt c/o upper abd pain and upper back pain. Pt also reports allergies that have been getting worse. Pt reports diarrhea, pt also reports blood in the urine. 17:43 Method Of Arrival: Ambulatory aa5 17:43 Coronavirus screen: At this time, the client does not indicate any symptoms associated aa5 with coronavirus-19. Ebola Screen: Patient negative for fever greater than or equal to 101.5 degrees Fahrenheit, and additional compatible Ebola Virus Disease symptoms. Initial Sepsis Screen: Does the patient meet any 2 criteria? No. Patient's initial sepsis screen is negative. Does the patient have a suspected source of infection? No. Patient's initial sepsis screen is negative. Risk Assessment: Do you want to hurt yourself or someone else? Patient reports no desire to harm self or others. Onset of symptoms was 2020. 17:43 Acuity: KEN 3 aa5 Historical: - Allergies: 17:49 No Known Allergies; aa5 - PMHx: 17:49 Diabetes - NIDDM; Hypertension; Kidney stones; aa5 - Immunization history:: Adult Immunizations unknown. - Social history:: Smoking status: Patient denies any tobacco usage or history of. - Family history:: not pertinent. Vital Signs: 17:43 BP 160 / 101; Pulse 100; Resp 18 S; Temp 98.6(O); Pulse Ox 98% on R/A; Weight 81.65 kg aa5 (R); Height 6 ft. 1 in. (185.42 cm) (R); 19:31 BP 167 / 78; Pulse 85 RA; ak2 19:31 BP 167 / 82 LA; Pulse 81; ak2 21:01 BP 154 / 76; Pulse 76; Resp 20; Pulse Ox 98% on R/A; ak2 17:43 Body Mass Index 23.75 (81.65 kg, 185.42 cm) aa5 ED Course: 17:10 Patient arrived in ED. ds1 17:42 Arm band placed on. aa5 17:47 Triage completed. aa5 17:51 EKG completed in triage. Results shown to MD. aa5 18:07 Chitra Larsen, CACHORRO is Primary Nurse. tr6 18:08 Kyree Cox MD is Attending Physician. [facility] 18:44 XRAY Chest (1 view) In Process Unspecified. EDMS 19:38 CT Chest Abdomen Pelvis W/O Contrast In Process Unspecified. EDMS 20:26 Cheikh Hazel NP is PHCP. pm1 20:33 Alejandro Yap MD is Referral Physician. pm1 20:33 Geeta Miranda MD is Referral Physician. pm1 Administered Medications: 19:03 Drug: NS 0.9% 1000 ml Route: IV; Rate: 125 ml/hr; Site: right forearm; tr6 19:04 Drug: NS 0.9% 500 ml Route: IV; Rate: bolus; Site: right forearm; tr6 19:11 Drug: Pepcid (famotidine) 20 mg Route: IVP; Site: right forearm; ak2 19:29 Drug: NS 0.9% 500 ml Route: IV; Rate: bolus; Site: right forearm; ak2 20:52 Drug: Lidoderm 5 % (700 mg/patch) 1 patches Route: Topical; Site: affected area; ak2 Outcome: 20:34 Discharge ordered by MD. pm1 21:02 Patient left the ED. ak2 Signatures: Dispatcher [employer] EDTX Kyree Cox MD MD cha Sanford, Demi ds1 Genna Block RN RN aa5 Cheikh Hazel NP PHOTOENGRAVING SUPERVISOR pm1 Chitra Larsen RN RN tr6 Kenn Leon ak2 Corrections: (The following items were deleted from the chart) 17:46 17:43 Chief complaint: aa5 aa5 17:47 17:43 Chief complaint: Patient states: "I have a bleeding ulcer and I have pain". Pt aa5 c/o upper abd pain and upper back pain. Pt also reports allergies that have been getting worse. Pt reports diarrhea, pt also reports Chief complaint: Patient states: "I have a bleeding ulcer and I have pain". Pt c/o upper abd pain and upper back pain. Pt also reports allergies that have been getting worse. Pt reports diarrhea, pt also reports aa5
[2021-01-20] MEDS ORDERED: LIDOCAINE 4% PATCH ONE (21:03)
[2021-01-20 21:16] VITALS: TEMP 98.6; O2SAT 98
[2021-01-20 21:19] VITALS: BP 154/76
== END 2021-01-20 21:02 | disposition home or self-care (01) ==
LOC: ER 17:06
DX: K30 Functional dyspepsia (principal); E11.22 Type 2 diabetes mellitus with diabetic chronic kidney disease; I12.9 Hypertensive chronic kidney disease with stage 1 through stage 4 chronic kidney disease, or unspecified chronic kidney disease; N18.9 Chronic kidney disease, unspecified; Z20.822 Contact with and (suspected) exposure to COVID-19
CPT/HCPCS: 93005; 87088; 85025; 87086; 80048; 36415; 83735; 85610; 82947; 80076; 81003; 84484; 83690; 83880; 71250; 74176; 71045; 96374; 99283; U0003; J7030

== ENCOUNTER 2021-01-28 10:14 | Observation (INO) | payer MEDICARE ==
[2021-01-28 11:03] LABS: Basophils % 0.8 % (0-1.3); Hematocrit 45.6 % (39.6-49.0); Lymphocytes % 17.4 % (15.3-44.8); MPV 7.5 fL (7.6-11.3)
[2021-01-28] MEDS ORDERED: METOPROLOL TAR 50 MG TAB ONE (11:05)
[2021-01-28] MEDS ORDERED: ASPIRIN 81 MG CHEWABLE TABLET ONE (11:05)
[2021-01-28] MEDS ORDERED: ONDANSETRON 4 MG/2 ML VIAL ONE (11:06)
[2021-01-28] MEDS ORDERED: ACETYLCYST 6,000 MG/30 ML VIAL ONE (11:06)
[2021-01-28] MEDS ORDERED: NA CHLORIDE 0.9% 1,000 ML ONE (11:06)
[2021-01-28] MEDS ORDERED: FAMOTIDINE 20 MG/2 ML VIAL IV ONE (11:06)
[2021-01-28] MEDS ORDERED: MORPHINE 2 MG/ML SYR ONE ×2 (11:06→14:44)
[2021-01-28 11:09] LABS: Protime INR 0.98
--- NOTE | 2021-01-28 11:27 | RAD REPORT ---
EXAM DESCRIPTION: RAD - Chest Single View - 01/28/2021 11:16 am CLINICAL HISTORY: CHEST PAIN Chest pain. COMPARISON: Chest Single View dated 01/20/2021; Chest Single View dated 05/28/2019; Chest Single View dated 12/16/2018; Abdomen 1 View (KUB) dated 11/12/2018 FINDINGS: Portable technique limits examination quality. The lungs are mildly emphysematous but grossly clear. The heart is normal in size. No displaced fract ures. IMPRESSION: No acute intrathoracic process suspected.
[2021-01-28 11:33] LABS: ALT/SGPT 22 U/L (12-78); AST/SGOT 16 U/L (15-37); Albumin 3.6 g/dL (3.4-5.0); Alkaline Phosphatase 68 U/L (45-117); BUN Blood Urea Nitrogen 18 mg/dL (7-18); Bicarbonate 25 mmol/L (21-32); Bilirubin Direct 0.1 mg/dL (0-0.2); Bilirubin Total 0.5 mg/dL (0.2-1.0); Glucose Level 197 mg/dL (74-106); Lipase 205 U/L (73-393); Magnesium 2.7 mg/dL (1.8-2.4); NT PRO-BNP 90 pg/mL (<450); Protein, Total 7.7 g/dL (6.4-8.2); Sodium Level 139 mmol/L (136-145); Troponin (Emerg Dept Use Only) < 0.02 ng/mL (0.0-0.045)
[2021-01-28 11:33] LABS: Urine Blood Negative (Negative); Urine Glucose Trace (Negative); Urine Protein Negative (Negative); Urine Specific Gravity 1.015 (1.005-1.030); Urine pH 7.5 (5.0-7.0)
--- NOTE | 2021-01-28 12:07 | RAD REPORT ---
EXAM DESCRIPTION: CT - Angio Aorta For Dissection - 01/28/2021 11:48 am CLINICAL HISTORY: Chest pain radiating to the back. Dissection;PE COMPARISON: No comparisons TECHNIQUE: CT angiography of the aorta was performed with MIPs. All CT scans are performed using dose optimization technique as appropriate and may include automated exposure control or mA/KV adjustment according to patient size. FINDINGS: A left aortic arch is present with normal branching pattern of the great vessels.No acute aortic finding is seen such as aneurysm, penetrating ulcer or dissection. The celiac axis, SMA, CAROLYNE and renal arteries are patent. No evidence of pulmonary embolism. The lungs are clear. The liver demonstrates no focal mass or biliary dilatation.Gallbladder distension evident.The spleen, pancreas, adrenal glands and kidneys are within normal limits for arterial phase imaging. No bowel obstruction, free fluid or abscess.No pathologic enlarged lymphadenopathy identified.Moderat e fat containing left inguinal hernia. Prostate gland projects into the urinary bladder base. No fracture or worrisome bone lesion seen. IMPRESSION: No acute aortic finding is demonstrated.
--- NOTE | 2021-01-28 14:11 | EDPHYS ---
Physician Documentation [facility] Name: Yeyo Pelayo Age: 80 yrs Sex: Male : 1940 Arrival Date: 01/28/2021 Time: 10:15 Bed 3 Private MD: Lalo Munroe H ED Physician Kyree Cox HPI: 01/28 14:01 This 80 yrs old Male presents to ER via Ambulatory with complaints of Chest juana Pain, High Blood Pressure. 14:01 The patient or guardian reports chest pain that is located primarily in the substernal juana area, anterior chest wall, left. Onset: just prior to arrival. The pain radiates to left back. Associated signs and symptoms: Pertinent positives: lightheadedness, shortness of breath. The chest pain is described as a heaviness, a pressure. Duration: The patient or guardian reports a single episode, that is now resolved, The patient or guardian reports multiple episodes, that have now resolved. Modifying factors: The symptoms are alleviated by nothing. the symptoms are aggravated by nothing. Severity of pain: At its worst the pain was mild in the emergency department the pain is unchanged. The patient has not experienced similar symptoms in the past. Historical: - Allergies: 10:28 No Known Allergies; ss - Home Meds: 12:00 amlodipine-benazepril 5-20 mg Oral cap 1 cap once daily [Active]; glimepiride 4 mg Oral hb tab 1 tab twice a day [Active]; - PMHx: 10:28 Diabetes - NIDDM; Hypertension; Kidney stones; ss - PSHx: 12:00 None; hb - Immunization history:: Adult Immunizations unknown. - Social history:: Smoking status: Patient denies any tobacco usage or history of. - Family history:: not pertinent. ROS: 14:01 Constitutional: Negative for fever, chills, and weight loss, Eyes: Negative for injury, juana pain, redness, and discharge, ENT: Negative for injury, pain, and discharge, Neck: Negative for injury, pain, and swelling, Respiratory: Negative for shortness of breath, cough, wheezing, and pleuritic chest pain, Abdomen/GI: Negative for abdominal pain, nausea, vomiting, diarrhea, and constipation, Back: Negative for injury and pain, : Negative for injury, bleeding, discharge, and swelling, MS/Extremity: Negative for injury and deformity, Skin: Negative for injury, rash, and discoloration, Neuro: Negative for headache, weakness, numbness, tingling, and seizure, Psych: Negative for depression, anxiety, suicide ideation, homicidal ideation, and hallucinations, Allergy/Immunology: Negative for hives, rash, and allergies, Endocrine: Negative for neck swelling, polydipsia, polyuria, polyphagia, and marked weight changes. 14:01 Cardiovascular: Positive for chest pain. Exam: 14:01 Constitutional: This is a well developed, well nourished patient who is awake, alert, juana and in no acute distress. Head/Face: Normocephalic, atraumatic. Eyes: Pupils equal round and reactive to light, extra-ocular motions intact. Lids and lashes normal. Conjunctiva and sclera are non-icteric and not injected. Cornea within normal limits. Periorbital areas with no swelling, redness, or edema. ENT: Nares patent. No nasal discharge, no septal abnormalities noted. Tympanic membranes are normal and external auditory canals are clear. Oropharynx with no redness, swelling, or masses, exudates, or evidence of obstruction, uvula midline. Mucous membranes moist. Neck: Trachea midline, no thyromegaly or masses palpated, and no cervical lymphadenopathy. Supple, full range of motion without nuchal rigidity, or vertebral point tenderness. No Meningismus. Chest/axilla: Normal chest wall appearance and motion. Nontender with no deformity. No lesions are appreciated. Cardiovascular: Regular rate and rhythm with a normal S1 and S2. No gallops, murmurs, or rubs. Normal PMI, no JVD. No pulse deficits. Respiratory: Lungs have equal breath sounds bilaterally, clear to auscultation and percussion. No rales, rhonchi or wheezes noted. No increased work of breathing, no retractions or nasal flaring. Abdomen/GI: Soft, non-tender, with normal bowel sounds. No distension or tympany. No guarding or rebound. No evidence of tenderness throughout. Back: No spinal tenderness. No costovertebral tenderness. Full range of motion. Skin: Warm, dry with normal turgor. Normal color with no rashes, no lesions, and no evidence of cellulitis. MS/ Extremity: Pulses equal, no cyanosis. Neurovascular intact. Full, normal range of motion. Neuro: Awake and alert, GCS 15, oriented to person, place, time, and situation. Cranial nerves II-XII grossly intact. Motor strength 5/5 in all extremities. Sensory grossly intact. Cerebellar exam normal. Normal gait. Psych: Awake, alert, with orientation to person, place and time. Behavior, mood, and affect are within normal limits. 14:01 ECG was reviewed by the Attending Physician. 14:01 Musculoskeletal/extremity: DVT Exam: No signs of deep vein thrombosis. no pain, no swelling, no tenderness, negative Homans' sign noted on exam, no appreciated bluish discoloration, no erythema, no increased warmth. Vital Signs: 10:26 BP 184 / 86; Pulse 90; Resp 18; Temp 98.1(TE); Pulse Ox 99% on R/A; Weight 81.65 kg; ss Pain 4/10; 10:42 BP 147 / 77; Pulse 73; Resp 17; Pulse Ox 100% on R/A; hb 10:59 BP 173 / 82; Pulse 88; Resp 15; Pulse Ox 99% on R/A; hb 12:22 BP 118 / 64; Pulse 56; Resp 14; Pulse Ox 98% on R/A; hb 14:00 BP 150 / 72; Pulse 52; Resp 15; Pulse Ox 99% on R/A; hb 15:24 BP 158 / 70; Pulse 52; Resp 16; Pulse Ox 99% on R/A; hb 16:30 BP 116 / 62; Pulse 53; Resp 14; Pulse Ox 98% on R/A; hb MDM: 10:42 Patient medically screened. juana 14:06 Differential diagnosis: abnormal EKG, acute myocardial infarction, chest wall pain, juana cholecystitis, Cholelithiasis costochondritis, hiatal hernia, pancreatitis, pneumonia, pulmonary embolus, stable angina, thoracic aortic disection, unstable angina. HEART Score: History: Slightly Suspicious (0), ECG: Normal (0), Age: > or = 65 years (2), Risk Factors: No Risk Factors Known (0), Troponin: < or = 1 x Normal Limit (0). The patient was given aspirin in the Emergency Department. The patient's deep vein thrombosis risk score was calculated as follows: Total Score: 0. This patient was found to be at low risk for a deep vein thrombosis by using the Well's assessment criteria. The patient's pulmonary embolism risk score was calculated as follows: Total Score: 0-2 points. This patient was found to be at low risk for a pulmonary embolism by using the Well's assessment criteria. TRENA Risk Score: 1 - patient's age is greater or equal to 65 years, 1 - Three or more CAD risk factors, 1 - ASA use in past 7 days, TOTAL SCORE = 3. Data reviewed: vital signs, nurses notes, lab test result(s), EKG, radiologic studies, plain films. Data interpreted: lens inserter: rate is 56 beats/min, rhythm is regular, Pulse oximetry: on room air is 98 %. Test interpretation: by ED physician or midlevel provider: ECG, plain radiologic studies. 01/28 10:39 Order name: Basic Metabolic Panel; Complete Time: 12:40 [facility] 01/28 10:39 Order name: CBC with Diff; Complete Time: 12:40 [facility] 01/28 10:39 Order name: LFT's; Complete Time: 12:40 [facility] 01/28 10:39 Order name: Magnesium; Complete Time: 12:40 [facility] 01/28 10:39 Order name: NT PRO-BNP; Complete Time: 12:40 [facility] 01/28 10:39 Order name: PT-INR; Complete Time: 12:40 [facility] 01/28 10:39 Order name: Troponin (emerg Dept Use Only); Complete Time: 12:40 [facility] 01/28 10:39 Order name: XRAY Chest (1 view); Complete Time: 12:40 [facility] 01/28 10:39 Order name: Lipase; Complete Time: 12:40 [facility] 01/28 11:33 Order name: Urine Dipstick-Ancillary [facility] 01/28 11:33 Order name: Urine Dipstick-Ancillary; Complete Time: 12:40 [facility] 01/28 11:57 Order name: SARS-COV-2 RT PCR; Complete Time: 12:40 [facility] 01/28 16:13 Order name: Troponin I [facility] 01/28 10:39 Order name: EKG; Complete Time: 10:40 [facility] 01/28 10:39 Order name: Cardiac monitoring; Complete Time: 10:59 [facility] 01/28 10:39 Order name: EKG - Nurse/Tech; Complete Time: 11:16 [facility] 01/28 10:39 Order name: CT Aorta for Dissection; Complete Time: 12:40 [facility] 01/28 14:11 Order name: Echo w/ Doppler [facility] 01/28 15:38 Order name: Diet Regular; Complete Time: 15:39 01/28 16:13 Order name: CONS Physician Consult [facility] 01/28 16:13 Order name: Heart Healthy [facility] 01/28 10:39 Order name: IV Saline Lock; Complete Time: 10:59 [facility] 01/28 10:39 Order name: Labs collected and sent; Complete Time: 10:59 [facility] 01/28 10:39 Order name: O2 Per Protocol; Complete Time: 10:59 [facility] 01/28 10:39 Order name: O2 Sat Monitoring; Complete Time: 11:16 [facility] 01/28 10:39 Order name: Urine Dipstick-Ancillary (obtain specimen); Complete Time: 11:33 [facility] EC:01 Rate is 89 beats/min. Rhythm is regular. QRS [place] is Normal. NM interval is normal. QRS juana interval is normal. QT interval is normal. No Q waves. T waves are Normal. No ST changes noted. Clinical impression: NSR w/ Non-specific ST/T Changes and No evidence of ischemia. Interpreted by me. Reviewed by me. Administered Medications: 10:57 Drug: Pepcid (famotidine) 20 mg Route: IVP; Site: right antecubital; hb 11:40 Follow up: Response: No adverse reaction hb 10:57 Drug: NS 0.9% 1000 ml Route: IV; Rate: 1 bolus; Site: right antecubital; hb 12:30 Follow up: Response: No adverse reaction; IV Status: Completed infusion; IV Intake: ph 1000ml 10:57 Drug: Mucomyst - Acetylcysteine 600 mg Route: PO; hb 11:44 Follow up: Response: No adverse reaction hb 10:58 Drug: Aspirin 162 mg Route: PO; hb 11:44 Follow up: Response: No adverse reaction hb 10:58 Drug: Lopressor (metoprolol TARTRATE) 50 mg Route: PO; hb 11:44 Follow up: Response: No adverse reaction hb 10:58 Drug: morphine 2 mg Route: IVP; Site: right antecubital; hb 10:58 Drug: Zofran (Ondansetron) 4 mg Route: IVP; Site: right antecubital; hb 11:30 Follow up: Response: No adverse reaction hb 14:38 Drug: morphine 2 mg Route: IVP; Site: right antecubital; hb 17:11 Follow up: Response: No adverse reaction; Pain is decreased; RASS: Alert and Calm (0) ph 14:38 Drug: Lovenox (enoxaparin) 80 mg Route: Sub-Q; Site: abdomen; hb 17:10 Follow up: Response: No adverse reaction ph Disposition: 01/28/21 14:11 Hospitalization ordered by Savanah Hoover for Observation. Preliminary diagnosis are Chest pain, unspecified, Type 2 diabetes mellitus, Unspecified kidney failure - insufficency. - Bed requested for Telemetry/MedSurg (observation). - Status is Observation. hb - Condition is Stable. - Problem is new. - Symptoms have improved. Signatures: Dispatcher [employer] EDAR Divya Ramos RN RN dw Anderson, Corey, MD MD cha Smirch, Shelby, RN RN Tabby Diamond RN RN Michell Zapata RN ph Corrections: (The following items were deleted from the chart) 11:02 10:40 CORONAVIRUS+MR.LAB.BRZ ordered. [facility] EDAR 16:36 14:11 Hospitalization Ordered by Savanah Hoover MD for Observation. Preliminary dw diagnosis is Chest pain, unspecified; Type 2 diabetes mellitus; Unspecified kidney failure - insufficency. Bed requested for Telemetry/MedSurg (observation). Status is Observation. Condition is Stable. Problem is new. Symptoms have improved. [facility] 17:37 16:36 01/28/2021 14:11 Hospitalization Ordered by Savanah Hoover MD for Observation. hb Preliminary diagnosis is Chest pain, unspecified; Type 2 diabetes mellitus; Unspecified kidney failure - insufficency. Bed requested for Telemetry/MedSurg (observation). Status is Observation. Condition is Stable. Problem is new. Symptoms have improved. dw
--- NOTE | 2021-01-28 14:11 | ER ---
Nurse's Notes [facility] Name: Yeyo Pelayo Age: 80 yrs Sex: Male : 1940 Arrival Date: 01/28/2021 Time: 10:15 Bed 3 Private MD: Lalo Munroe H Diagnosis: Chest pain, unspecified;Type 2 diabetes mellitus;Unspecified kidney failure-insufficency Presentation: 01/28 10:26 Chief complaint: Patient states: chest discomfort that radiates towards his back that ss began "a few days ago". PT reports he was seen yesterday in ER and discharged home, but the pain is worse. Coronavirus screen: Client denies travel out of the [place] in the last 14 days. Ebola Screen: Patient denies exposure to infectious person. No symptoms or risks identified at this time. Initial Sepsis Screen: Does the patient meet any 2 criteria? No. Patient's initial sepsis screen is negative. Does the patient have a suspected source of infection? No. Patient's initial sepsis screen is negative. Risk Assessment: Do you want to hurt yourself or someone else? Patient reports no desire to harm self or others. Onset of symptoms is unknown. 10:26 Method Of Arrival: Ambulatory ss 10:26 Acuity: KEN 3 ss Historical: - Allergies: 10:28 No Known Allergies; ss - Home Meds: 12:00 amlodipine-benazepril 5-20 mg Oral cap 1 cap once daily [Active]; glimepiride 4 mg Oral hb tab 1 tab twice a day [Active]; - PMHx: 10:28 Diabetes - NIDDM; Hypertension; Kidney stones; ss - PSHx: 12:00 None; hb - Immunization history:: Adult Immunizations unknown. - Social history:: Smoking status: Patient denies any tobacco usage or history of. - Family history:: not pertinent. Screenin:59 Abuse screen: Denies threats or abuse. Denies injuries from another. Nutritional hb screening: No deficits noted. Tuberculosis screening: No symptoms or risk factors identified. Fall Risk None identified. Assessment: 10:45 General: Appears in no apparent distress. Behavior is calm, cooperative. Pain: Pain hb currently is 4 out of 10 on a pain scale. Neuro: Level of Consciousness is awake, alert, obeys commands, Oriented to person, place, time, situation. Cardiovascular: Patient's skin is warm and dry. Rhythm is regular. Respiratory: Respiratory effort is even, unlabored, Respiratory pattern is regular, symmetrical. GI: No signs and/or symptoms were reported involving the gastrointestinal system. : No signs and/or symptoms were reported regarding the genitourinary system. EENT: No signs and/or symptoms were reported regarding the EENT system. Derm: Skin is pink, warm \\T\\ dry. Musculoskeletal: Reports upper back pain. 12:00 Reassessment: Patient appears in no apparent distress at this time. Patient and/or ph family updated on plan of care and expected duration. Pain level reassessed. Patient is alert, oriented x 3, equal unlabored respirations, skin warm/dry/pink. 13:05 Reassessment: Patient appears in no apparent distress at this time. Patient and/or ph family updated on plan of care and expected duration. Pain level reassessed. Patient is alert, oriented x 3, equal unlabored respirations, skin warm/dry/pink. Pt ambulated to restroom w/ no difficulty, now resting comfortably in bed, VSS. 14:18 Reassessment: Patient appears in no apparent distress at this time. Patient and/or hb family updated on plan of care and expected duration. Pain level reassessed. Patient is alert, oriented x 3, equal unlabored respirations, skin warm/dry/pink. 15:24 Reassessment: Patient appears in no apparent distress at this time. Patient and/or hb family updated on plan of care and expected duration. Pain level reassessed. Patient is alert, oriented x 3, equal unlabored respirations, skin warm/dry/pink. 16:56 Reassessment: Patient appears in no apparent distress at this time. Patient and/or hb family updated on plan of care and expected duration. Pain level reassessed. Patient is alert, oriented x 3, equal unlabored respirations, skin warm/dry/pink. Vital Signs: 10:26 BP 184 / 86; Pulse 90; Resp 18; Temp 98.1(TE); Pulse Ox 99% on R/A; Weight 81.65 kg; ss Pain 4/10; 10:42 BP 147 / 77; Pulse 73; Resp 17; Pulse Ox 100% on R/A; hb 10:59 BP 173 / 82; Pulse 88; Resp 15; Pulse Ox 99% on R/A; hb 12:22 BP 118 / 64; Pulse 56; Resp 14; Pulse Ox 98% on R/A; hb 14:00 BP 150 / 72; Pulse 52; Resp 15; Pulse Ox 99% on R/A; hb 15:24 BP 158 / 70; Pulse 52; Resp 16; Pulse Ox 99% on R/A; hb 16:30 BP 116 / 62; Pulse 53; Resp 14; Pulse Ox 98% on R/A; hb ED Course: 10:15 Patient arrived in ED. ds1 10:17 Lalo Munroe DO is Private Physician. mr 10:27 Triage completed. ss 10:28 Arm band placed on right wrist. Patient placed in an exam room, on a stretcher, on ss oxygen, on potline monitor, on pulse oximetry. EKG done per protocol. Performed by ED Staff. Shown to ED physician. 10:33 Michell Zapata RN is Primary Nurse. ph 10:36 Kyree Cox MD is Attending Physician. juana 11:00 Patient has correct armband on for positive identification. Placed in gown. Bed in low hb position. 11:16 XRAY Chest (1 view) In Process Unspecified. EDMS 11:17 X-ray completed. Portable x-ray completed in exam room. Patient tolerated procedure sw well. 11:48 CT Aorta for Dissection In Process Unspecified. EDMS 14:09 Savanah Hoover MD is Hospitalizing Provider. juana 17:09 No provider procedures requiring assistance completed. Patient admitted, IV remains in ph place. Administered Medications: 10:57 Drug: Pepcid (famotidine) 20 mg Route: IVP; Site: right antecubital; hb 11:40 Follow up: Response: No adverse reaction hb 10:57 Drug: NS 0.9% 1000 ml Route: IV; Rate: 1 bolus; Site: right antecubital; hb 12:30 Follow up: Response: No adverse reaction; IV Status: Completed infusion; IV Intake: ph 1000ml 10:57 Drug: Mucomyst - Acetylcysteine 600 mg Route: PO; hb 11:44 Follow up: Response: No adverse reaction hb 10:58 Drug: Aspirin 162 mg Route: PO; hb 11:44 Follow up: Response: No adverse reaction hb 10:58 Drug: Lopressor (metoprolol TARTRATE) 50 mg Route: PO; hb 11:44 Follow up: Response: No adverse reaction hb 10:58 Drug: morphine 2 mg Route: IVP; Site: right antecubital; hb 10:58 Drug: Zofran (Ondansetron) 4 mg Route: IVP; Site: right antecubital; hb 11:30 Follow up: Response: No adverse reaction hb 14:38 Drug: morphine 2 mg Route: IVP; Site: right antecubital; hb 17:11 Follow up: Response: No adverse reaction; Pain is decreased; RASS: Alert and Calm (0) ph 14:38 Drug: Lovenox (enoxaparin) 80 mg Route: Sub-Q; Site: abdomen; hb 17:10 Follow up: Response: No adverse reaction ph Intake: 12:30 IV: 1000ml; Total: 1000ml. ph Outcome: 14:11 Decision to Hospitalize by Provider. juana 17:09 Admitted to Tele accompanied by tech, via wheelchair, room 401, with chart. ph 17:09 Condition: stable 17:09 Instructed on the need for admit. 17:37 Patient left the ED. hb Signatures: Dispatcher [employer] EDMS Kyree Cox MD MD cha Rivera, Ebony mr Sanchez, Ramona ds1 Nini Mustafa, Michell Webb RN, RN RN ph Warren, Shannon sw Baxter, Heather, RN RN hb
[2021-01-28] MEDS ORDERED: ENOXAPARIN 80 MG/0.8 ML SQ ONE (14:44)
[2021-01-28] MEDS ORDERED: MORPHINE 4 MG/ML SYR IV PRN (16:09)
[2021-01-28] MEDS ORDERED: ACETAMINOPHEN 500 MG TAB PO PRN (16:09)
[2021-01-28] MEDS ORDERED: ALPRAZOLAM 0.25 MG TABLET PO PRN (16:09)
[2021-01-28 17:36] VITALS: BMI 23.7
[2021-01-28] MEDS: METOPROLOL TAR 25 MG TAB PO SCH (20:50)
[2021-01-29 05:44] VITALS: TEMP 97.2
[2021-01-29] MEDS ORDERED: HYDRALAZINE HCL 20 MG/ML VIAL IV PRN (05:55)
[2021-01-29 06:38] LABS: HDL Cholesterol 33 mg/dL (40-60); LDL Cholesterol, Calculated 110 (<130); Troponin I < 0.02 ng/mL (0.0-0.045)
[2021-01-29 08:19] VITALS: BP 148/69
[2021-01-29] MEDS ORDERED: ENOXAPARIN 40 MG/0.4 ML SQ SCH (09:00)
[2021-01-29] MEDS ORDERED: ASPIRIN EC 81 MG TAB PO SCH (09:00)
[2021-01-29] MEDS: METOPROLOL TAR 25 MG TAB PO SCH (09:29)
[2021-01-29] MEDS ORDERED: ALPRAZOLAM 0.25 MG TABLET SL ONE (10:03)
--- NOTE | 2021-01-29 10:05 | P.HP ---
Certification for Inpatient Patient admitted to: Observation With expected LOS: <2 Midnights Patient will require the following post-hospital care: None Practitioner: I am a practitioner with admitting privileges, knowledge of patient current condition, hospital course, and medical plan of care. Services: Services provided to patient in accordance with Admission requirements found in Title 42 Section 412.3 of the Code of Federal Regulations Patient History Date of Service: 01/28/21 Reason for admission: Chest pain rule out acute coronary syndrome History of Present Illness: Patient is a 80-year-old gentleman who came to the hospital with chest discomfort. Pain was mainly in the sternal region. Pain was not improving so he came into the emergency room for further evaluation. He has been in the hospital about a week ago with similar complaints. At that time he felt he was having symptoms. He had extensive workup which was unremarkable. He feels now that he is going to think about it that he may be having a little panic attacks. She is a vegetarian and has a strict diet. He does not smoke any does not have a family history of heart disease. He has never been told he has any heart problems. At this time, he will be admitted to the hospital to be ruled out for acute coronary syndrome. Allergies No Known Drug Allergies Allergy (Verified 08/18/16 02:20) Unknown Home Medications: Glimepiride [Amaryl] 4 mg PO DAILY 07/15/14 Amlodipine [Norvasc*] 1 tab PO DAILY 01/28/21 - Past Medical/Surgical History Has patient received pneumonia vaccine in the past: No Diabetic: Yes -: Hypertension -: Type 2 diabetes -: Nephrolithiasis -: urethral stent placement -: cystoscopy -: hernia repair - Family History Mother Notes: alzheimers Father Medical History: Cancer Notes: colon - Social History Smoking Status: Never smoker Alcohol use: No CD- Drugs: No Caffeine use: No Place of Residence: Home Review of Systems 10-point ROS is otherwise unremarkable Physical Examination - Vital Signs Temperature: 97.2 F Blood Pressure: 148/69 Pulse: 68 Respirations: 18 Pulse Ox (%): 96 - Physical Exam General: Alert, In no apparent distress, Oriented x3 HEENT: Atraumatic, PERRLA, Mucous membr. moist/pink, EOMI, Sclerae nonicteric Neck: Supple, 2+ carotid pulse no bruit, No LAD, Without JVD or thyroid abnormality Respiratory: Clear to auscultation bilaterally, Normal air movement Cardiovascular: Regular rate/rhythm, Normal S1 S2, No murmurs Gastrointestinal: Normal bowel sounds, Soft and benign, Non-distended, No tenderness Musculoskeletal: No clubbing, No swelling, No tenderness Integumentary: No rashes Neurological: Normal gait, Normal speech, Normal strength at 5/5 x4 extr, Normal tone, Sensation intact, Cranial nerves 3-12 intact, Normal affect Lymphatics: No axilla or inguinal lymphadenopathy - Studies Laboratory Data (last 24 hrs) 01/28/21 10:50: PT 11.3, INR 0.98 01/28/21 10:50: WBC 5.80 D, Hgb 15.0, Hct 45.6, Plt Count 289 01/28/21 10:50: Sodium 139, Potassium 4.0, BUN 18, Creatinine 1.33 H, Glucose 197 H, Magnesium 2.7 H, Total Bilirubin 0.5, AST 16, ALT 22, Alkaline Phosphatase 68, Lipase 205 Assessment & Plan - Problems (Diagnosis) (1) Chest pain, rule out acute myocardial infarction Current Visit: Yes Status: Acute (2) DM2 (diabetes mellitus, type 2) Onset Date: 07/17/14 Current Visit: No Status: Chronic Qualifiers: (3) HTN (hypertension) Onset Date: 07/17/14 Current Visit: No Status: Chronic Qualifiers: - Plan 1. Serial troponins and EKG 2. Appreciate Cardiology consultation 3. Echocardiogram and stress test as an outpatient 4. Anti-platelet therapy, anti coagulation, beta-viky, statin, and O2 as needed 5. Anxiolytics 6. GI and DVT prophylaxis Discharge Plan: Home Plan to discharge in: 24 Hours - Advance Directives Does patient have a Living Will: No Does patient have a Durable POA for Healthcare: No - Code Status/Comfort Care Code Status Assessed: Yes Code Status: Full Code Critical Care: No Time Spent Managing PTS Care (In Minutes): 35
--- NOTE | 2021-01-29 10:10 | P.DS ---
Discharge Date: 01/29/21 Disposition: ROUTINE DISCHARGE Discharge Condition: GOOD Reason for Admission: Chest pain rule out acute coronary syndrome - Problems (1) Chest pain, rule out acute myocardial infarction Current Visit: Yes Status: Acute (2) DM2 (diabetes mellitus, type 2) Onset Date: 07/17/14 Current Visit: No Status: Chronic Qualifiers: (3) HTN (hypertension) Onset Date: 07/17/14 Current Visit: No Status: Chronic Qualifiers: Brief History of Present Illness: Patient is a 80-year-old gentleman who came to the hospital with chest discomfort. Pain was mainly in the sternal region. Pain was not improving so he came into the emergency room for further evaluation. He has been in the hospital about a week ago with similar complaints. At that time he felt he was having symptoms. He had extensive workup which was unremarkable. He feels now that he is going to think about it that he may be having a little panic attacks. She is a vegetarian and has a strict diet. He does not smoke any does not have a family history of heart disease. He has never been told he has any heart problems. At this time, he will be admitted to the hospital to be ruled out for acute coronary syndrome. Hospital Course: Patient was ruled out for acute coronary syndrome. After a long discussion with the patient he felt his symptoms were related to anxiety. His troponins have been negative and his EKG is unremarkable. He does have some risk factors so I did advise him to follow with Cardiology in the next week to have further cardiac testing done. At this time, patient is stable for discharge. Vital Signs/Physical Exam: Temp Pulse Resp BP Pulse Ox 97.2 F 68 18 148/69 H 96 01/29/21 10:05 01/29/21 10:05 01/29/21 10:05 01/29/21 10:05 01/29/21 10:05 General: Alert, In no apparent distress, Oriented x3 Laboratory Data at Discharge: WBC 5.80 K/uL (4.3-10.9) D 01/28/21 10:50 Hgb 15.0 g/dL (13.6-17.9) 01/28/21 10:50 Hct 45.6 % (39.6-49.0) 01/28/21 10:50 Plt Count 289 K/uL (152-406) 01/28/21 10:50 PT 11.3 SECONDS (9.5-12.5) 01/28/21 10:50 INR 0.98 01/28/21 10:50 Sodium 139 mmol/L (136-145) 01/28/21 10:50 Potassium 4.0 mmol/L (3.5-5.1) 01/28/21 10:50 BUN 18 mg/dL (7-18) 01/28/21 10:50 Creatinine 1.33 mg/dL (0.55-1.3) H 01/28/21 10:50 Glucose 197 mg/dL (74-106) H 01/28/21 10:50 Magnesium 2.7 mg/dL (1.8-2.4) H 01/28/21 10:50 Total Bilirubin 0.5 mg/dL (0.2-1.0) 01/28/21 10:50 AST 16 U/L (15-37) 01/28/21 10:50 ALT 22 U/L (12-78) 01/28/21 10:50 Alkaline Phosphatase 68 U/L (45-117) 01/28/21 10:50 Troponin I < 0.02 ng/mL (0.0-0.045) 01/29/21 06:02 Triglycerides 200 mg/dL (<150) H 01/29/21 06:02 Cholesterol 183 mg/dL (<200) 01/29/21 06:02 HDL Cholesterol 33 mg/dL (40-60) L 01/29/21 06:02 Cholesterol/HDL Ratio 5.55 01/29/21 06:02 Lipase 205 U/L (73-393) 01/28/21 10:50 Home Medications: Glimepiride [Amaryl] 4 mg PO DAILY 07/15/14 Amlodipine [Norvasc*] 1 tab PO DAILY 01/28/21 ALPRAZolam [Xanax*] 0.25 mg PO DAILY PRN #15 tab 01/29/21 New Medications: ALPRAZolam [Xanax*] 0.25 mg PO DAILY PRN #15 tab PRN Reason: Anxiety Physician Discharge Instructions: OK TO DC IV AND DC HOME FOLLOW-UP WITH PRIMARY CARE PROVIDER IN 1-2 WEEKS FOLLOW-UP WITH CARDIOLOGY IN 1-2 WEEKS RETURN TO THE ER IF symptoms worsen CALL or TEXT DR. GOTTI AT [phone] IF ANY QUESTIONS REGARDING HOSPITAL STAY. PLEASE CALL THE FLOOR AT [phone] IF ANY MEDICATION OR NURSING QUESTIONS. Diet: ADA (Heart healthy) Activity: Fall precautions Followup: Lalo Munroe DO, DO [Primary Care Provider] - Time spent managing pt's care (in minutes): 35
--- NOTE | 2021-01-29 10:30 | EKG ---
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
[2021-01-29 11:21] VITALS: O2SAT 98
--- NOTE | 2021-01-30 08:24 | ECHO ---
HEIGHT: 6 ft 1 in WEIGHT: 180 lb 0 oz DATE OF STUDY: 01/29/[address]: Kyree Cox MD 2-DIMENSIONAL: YES M.MODE: YES DOPPLER: YES COLOR FLOW: YES TDS: NO PORTABLE: NO DEFINITY: NO BUBBLE STUDY: NO DIAGNOSIS: CHEST PAIN CARDIAC HISTORY: CATHERIZATION: NO SURGERY: NO PROSTHETIC VALVE: NO PACEMAKER: NO MEASUREMENTS (cm) DIASTOLIC (NORMALS) SYSTOLIC (NORMALS) IVSd 1.0 (0.6-1.2) LA Diam 2.7 (1.9-4.0) LVEF 60% LVIDd 4.7 (3.5-5.7) LVIDs 3.2 (2.0-3.5) %FS 32% LVPWd 1.0 (0.6-1.2) Ao Diam 3.1 (2.0-3.7) 2 DIMENSIONAL ASSESSMENT: RIGHT ATRIUM: NORMAL LEFT ATRIUM: NORMAL RIGHT VENTRICLE: NORMAL LEFT VENTRICLE: NORMAL TRICUSPID VALVE: NORMAL MITRAL VALVE: NORMAL PULMONIC VALVE: NORMAL AORTIC VALVE: SCLEROSIS PERICARDIAL EFFUSION: NONE AORTIC ROOT: NORMAL LEFT VENTRICULAR WALL MOTION: NORMAL DOPPLER/COLOR FLOW: MILD AORTIC AND TRICUSPID REGURGITATION. COMMENTS: AORTIC SCLEROSIS WITH NO STENOSIS. MILD AORTIC AND TRICUSPID REGURGITATION. NORMAL LEFT VENTRICULAR SIZE AND FUNCTION. TECHNOLOGIST: Sandi SAENZ
== END 2021-01-29 12:27 | disposition home or self-care (01) ==
LOC: ER 10:14 → ERHOLD 16:09 → 4TH 17:11
PROVIDERS: ADMIT Hospitalist; ATTEND Hospitalist
DX: R07.9 Chest pain, unspecified (principal); E11.9 Type 2 diabetes mellitus without complications; I10 Essential (primary) hypertension; Z20.822 Contact with and (suspected) exposure to COVID-19; Z79.84 Long term (current) use of oral hypoglycemic drugs
CPT/HCPCS: 36415; 71045; 71275; 74175; 80048; 80061; 80076; 81003; 83690; 83735; 83880; 84484; 85025; 85610; 93005; 93306; 96361; 96372; 96374; 96375; 99285; G0378; J0360; J1650; J2270; J2405; J7030; Q9967; U0003

== ENCOUNTER 2021-03-13 14:08 | Emergency (ER) | payer MEDICARE, OTHER ==
--- NOTE | 2021-03-13 15:32 | RAD REPORT ---
EXAM DESCRIPTION: RAD - Chest Pa And Lat (2 Views) - 03/13/2021 3:09 pm CLINICAL HISTORY: SOB COMPARISON: Chest Single View dated 01/28/2021; Chest Single View dated 01/20/2021; Chest Single View d ated 05/28/2019; Chest Single View dated 12/16/2018 FINDINGS: No evidence of edema or pneumonia. The heart size is within normal limits.No acute osseous abnormality. No significant pleural effusions or pneumothorax. IMPRESSION: No acute cardiopulmonary disease.
--- NOTE | 2021-03-13 17:31 | EDPHYS ---
Physician Documentation [facility] Name: Yeyo Pelayo Age: 80 yrs Sex: Male : 1940 Arrival Date: 03/13/2021 Time: 14:09 Bed 24 Private MD: ED Physician Jean Madera HPI: 03/13 17:55 This 80 yrs old Male presents to ER via Ambulatory with complaints of kb Shortness Of Breath. 17:55 The patient has shortness of breath at rest. Onset: The symptoms/episode began/occurred kb last night. Duration: The symptoms are continuous, but are markedly better than the original presentation. The patient's shortness of breath is aggravated by nothing, is alleviated by nothing. Associated signs and symptoms: The patient has no apparent associated signs or symptoms. Severity of symptoms: At their worst the symptoms were mild moderate in the emergency department the symptoms have resolved. The patient has experienced similar episodes in the past. The patient has not recently seen a physician. Patient reports shortness of breath last night. States this is happened 3 times in the past and he gets worried that he has Covid. States he keeps up with the news and the more he watches it the more panicky he gets. States he came in to get a Covid test only. Patient refuses any blood work or further diagnostics. Denies chest pain. . Historical: - Allergies: 14:47 No Known Allergies; kg - Home Meds: 14:47 amlodipine-benazepril 5-20 mg Oral cap 1 cap once daily [Active]; glimepiride 4 mg Oral kg tab 1 tab twice a day [Active]; - PMHx: 14:47 Hypertension; Diabetes - NIDDM; Kidney stones; kg - PSHx: 14:47 Lithotripsy; kg - Immunization history:: Adult Immunizations not up to date, Client reports having NOT received the Covid vaccine. - Social history:: Smoking status: Patient denies any tobacco usage or history of. Patient uses. ROS: 17:57 Constitutional: Negative for fever, chills, and weight loss. kb 17:57 Respiratory: Positive for shortness of breath, Negative for cough, dyspnea on exertion, hemoptysis, orthopnea, pleurisy, sputum production, wheezing. 17:57 All other systems are negative. Exam: 17:58 Constitutional: This is a well developed, well nourished patient who is awake, alert, kb and in no acute distress. Head/Face: Normocephalic, atraumatic. ENT: Moist Mucous membranes Cardiovascular: Regular rate and rhythm with a normal S1 and S2. No gallops, murmurs, or rubs. No pulse deficits. Respiratory: Respirations even and unlabored. No increased work of breathing, no retractions or nasal flaring. Abdomen/GI: Soft, non-tender. No distention Skin: Warm, dry with normal turgor. Normal color. MS/ Extremity: Pulses equal, no cyanosis. Neurovascular intact. Full, normal range of motion. Neuro: Awake and alert, GCS 15, oriented to person, place, time, and situation. Moves all extremities. Normal gait. Psych: Awake, alert, with orientation to person, place and time. Behavior, mood, and affect are within normal limits. Vital Signs: 14:42 BP 172 / 77; Pulse 87; Resp 20; Temp 97.4(O); Pulse Ox 100% on R/A; Weight 79.38 kg kg (R); Height 6 ft. 1 in. (185.42 cm); Pain 0/10; 17:03 BP 167 / 77; Pulse 82; Resp 17; Pulse Ox 100% on R/A; tw2 14:42 Body Mass Index 23.09 (79.38 kg, 185.42 cm) kg MDM: 17:02 Patient medically screened. kb 17:57 Data reviewed: vital signs, nurses notes. Data interpreted: Pulse oximetry: on room air kb is 100 %. Interpretation: normal. Counseling: I had a detailed discussion with the patient and/or guardian regarding: the historical points, exam findings, and any diagnostic results supporting the discharge/admit diagnosis, lab results, radiology results, the need for outpatient follow up, a family practitioner, to return to the emergency department if symptoms worsen or persist or if there are any questions or concerns that arise at home. 03/13 17:18 Order name: SARS-COV-2 RT PCR; Complete Time: 17:27 EDNE 03/13 14:50 Order name: XRAY Chest Pa And Lat (2 Views); Complete Time: 16:38 kg Administered Medications: No medications were administered Disposition: 18:15 Co-signature as Attending Physician, Jean Madera MD. rn Disposition Summary: 03/13/21 17:30 Discharge Ordered Location: Home kb Condition: Stable kb Diagnosis - Person with feared health complaint in whom no diagnosis is made kb Followup: kb - With: Emergency Department - When: As needed - Reason: Worsening of condition Followup: kb - With: Private Physician - When: 2 - 3 days - Reason: Recheck today's complaints, Continuance of care, Re-evaluation by your physician Discharge Instructions: - Discharge Summary Sheet kb - Panic Attack, [id number] kb Forms: - Medication Reconciliation Form kb - Thank You Letter kb - Antibiotic Education kb - Prescription Opioid Use kb Signatures: Dispatcher [employer] EDMS Devi Hernandez, [employer] CONSULTANT-Ckb Jean Madera MD MD rn Graham, Kristen, RN RN kg Corrections: (The following items were deleted from the chart) 16:10 14:50 CORONAVIRUS+BRZ ordered. EDNE EDMS
--- NOTE | 2021-03-13 17:31 | ER ---
Nurse's Notes [facility] Name: Yeyo Pelayo Age: 80 yrs Sex: Male : 1940 Arrival Date: 03/13/2021 Time: 14:09 Bed 24 Private MD: Diagnosis: Person with feared health complaint in whom no diagnosis is made Presentation: 03/13 14:42 Chief complaint: Patient states: SOB, chest tight last night but symptoms have kg resolved. Pt stated that he wants to get swabbed because he's scared he might have COVID. Coronavirus screen: Client denies travel out of the [place] in the last 14 days. At this time, unable to obtain information related to travel outside the [place] At this time, the client does not indicate any symptoms associated with coronavirus-19. Ebola Screen: Patient negative for fever greater than or equal to 101.5 degrees Fahrenheit, and additional compatible Ebola Virus Disease symptoms Patient denies exposure to infectious person. Patient denies travel to an Ebola-affected area in the 21 days before illness onset. Initial Sepsis Screen: Does the patient meet any 2 criteria? No. Patient's initial sepsis screen is negative. Does the patient have a suspected source of infection? No. Patient's initial sepsis screen is negative. Risk Assessment: Do you want to hurt yourself or someone else? Patient reports no desire to harm self or others. Onset of symptoms was March 12, 2021. 14:42 Method Of Arrival: Ambulatory kg 14:42 Acuity: KEN 4 kg Triage Assessment: 14:47 General: Appears in no apparent distress. Behavior is calm, cooperative, appropriate kg for age, quiet. Pain: Denies pain. Respiratory: Reports Pt had SOB last night that has resolved Onset: The symptoms/episode began/occurred yesterday, the patient has mild shortness of breath. Historical: - Allergies: 14:47 No Known Allergies; kg - Home Meds: 14:47 amlodipine-benazepril 5-20 mg Oral cap 1 cap once daily [Active]; glimepiride 4 mg Oral kg tab 1 tab twice a day [Active]; - PMHx: 14:47 Hypertension; Diabetes - NIDDM; Kidney stones; kg - PSHx: 14:47 Lithotripsy; kg - Immunization history:: Adult Immunizations not up to date, Client reports having NOT received the Covid vaccine. - Social history:: Smoking status: Patient denies any tobacco usage or history of. Patient uses. Screenin:49 Abuse screen: Denies threats or abuse. Denies injuries from another. Nutritional kg screening: No deficits noted. Tuberculosis screening: No symptoms or risk factors identified. Fall Risk None identified. Assessment: 17:03 General: Appears in no apparent distress. slender, well groomed, Behavior is calm, tw2 cooperative, appropriate for age. Pain: Denies pain. Neuro: Level of Consciousness is awake, alert, obeys commands, Oriented to person, place, time, situation. Cardiovascular: Capillary refill < 3 seconds Patient's skin is warm and dry. Rhythm is regular. Respiratory: Airway is patent Respiratory effort is even, unlabored, Respiratory pattern is regular, symmetrical, Breath sounds are clear bilaterally. GI: No signs and/or symptoms were reported involving the gastrointestinal system. Abdomen is flat. : No signs and/or symptoms were reported regarding the genitourinary system. EENT: No signs and/or symptoms were reported regarding the EENT system. Derm: No signs and/or symptoms reported regarding the dermatologic system. Musculoskeletal: Range of motion: intact in all extremities. 17:10 Reassessment: provider at bedside at this time. tw2 17:38 Reassessment: Patient appears in no apparent distress at this time. No changes from tw2 previously documented assessment. Patient and/or family updated on plan of care and expected duration. Pain level reassessed. Patient is alert, oriented x 3, equal unlabored respirations, skin warm/dry/pink. Vital Signs: 14:42 BP 172 / 77; Pulse 87; Resp 20; Temp 97.4(O); Pulse Ox 100% on R/A; Weight 79.38 kg kg (R); Height 6 ft. 1 in. (185.42 cm); Pain 0/10; 17:03 BP 167 / 77; Pulse 82; Resp 17; Pulse Ox 100% on R/A; tw2 14:42 Body Mass Index 23.09 (79.38 kg, 185.42 cm) kg ED Course: 14:09 Patient arrived in ED. as 14:47 Triage completed. kg 14:47 Arm band placed on left wrist. kg 14:49 Patient has correct armband on for positive identification. kg 15:08 XRAY Chest Pa And Lat (2 Views) In Process Unspecified. EDMS 16:59 Sonja Conner, RN is Primary Nurse. tw2 17:02 Devi Hernandez FNP-C [facility]. kb 17:02 Jean Madera MD is Attending Physician. kb 17:38 No provider procedures requiring assistance completed. Patient did not have IV access tw2 during this emergency room visit. Administered Medications: No medications were administered Outcome: 17:30 Discharge ordered by . kb 17:38 Discharged to home ambulatory. tw2 17:38 Condition: stable 17:38 Discharge instructions given to patient, Instructed on discharge instructions, follow up and referral plans. Demonstrated understanding of instructions, follow-up care. 17:38 Patient left the ED. tw2 Signatures: Dispatcher [employer] EDMS Devi Hernandez FNP-C FNP-Kendal Alonso as Sonja Conner, RN RN tw2 Glroia Baer RN RN kg
[2021-03-14 13:37] VITALS: TEMP 97.4; O2SAT 100
[2021-03-14 13:39] VITALS: BP 167/77
== END 2021-03-13 17:38 | disposition home or self-care (01) ==
LOC: ER 14:08
DX: Z71.1 Person with feared health complaint in whom no diagnosis is made (principal); Z20.822 Contact with and (suspected) exposure to COVID-19
CPT/HCPCS: 71046; 99283; U0003

== ENCOUNTER 2021-07-10 10:11 | Emergency (ER) | payer OTHER ==
[2021-07-10 11:25] LABS: Absolute Lymphocytes (CBC) 0.9 K/uL (0.7-4.9); Basophils % 0.4 % (0-1.3); Hematocrit 43.2 % (39.6-49.0); Lymphocytes % 9.5 % (15.3-44.8); MPV 7.7 fL (7.6-11.3); RBC Red Blood Cell Count 4.64 M/uL (4.33-5.43)
--- NOTE | 2021-07-10 11:36 | RAD REPORT ---
EXAM DESCRIPTION: RAD - Chest Single View - 07/10/2021 11:29 am CLINICAL HISTORY: chest pain, sob COMPARISON: March 13 TECHNIQUE: AP portable chest image was obtained 07/10/2021 11:29 am . FINDINGS: No peripheral mass or consolidations seen. No failure or volume overload. Interstitial mar kings are mildly prominent but not clearly different from the comparison examination. No hilar mass o r lymphadenopathy. Heart and vasculature are normal. No measurable pleural effusion and no pneumothorax. No acute bony abnormality seen. No acute aortic findings suspected. IMPRESSION: Mild chronic interstitial lung disease similar to comparison. No acute cardiopulmonary finding seen.
[2021-07-10 11:39] LABS: ALT/SGPT 21 U/L (12-78); AST/SGOT 14 U/L (15-37); Albumin 3.5 g/dL (3.4-5.0); Alkaline Phosphatase 74 U/L (45-117); BUN Blood Urea Nitrogen 20 mg/dL (7-18); Bicarbonate 27 mmol/L (21-32); Bilirubin Direct 0.1 mg/dL (0-0.2); Bilirubin Total 0.5 mg/dL (0.2-1.0); Glucose Level 282 mg/dL (74-106); NT PRO-BNP 180 pg/mL (<450); Potassium 4.5 mmol/L (3.5-5.1); Protein, Total 7.6 g/dL (6.4-8.2); Sodium Level 138 mmol/L (136-145); Troponin (Emerg Dept Use Only) < 0.02 ng/mL (0.0-0.045)
--- NOTE | 2021-07-10 12:53 | RAD REPORT ---
EXAM DESCRIPTION: CT - Chest For Pe Angio - 07/10/2021 12:42 pm CLINICAL HISTORY: Chest pain. sob, chest pain COMPARISON: Chest Abd Pelvis Wo Con dated 01/20/2021 TECHNIQUE: CT angiogram of the pulmonary arteries was performed with MIP. All CT scans are performed using dose optimization technique as appropriate and may include automated exposure control or mA/KV adjustment according to patient size. FINDINGS: No evidence of pulmonary thromboembolism. No acute aortic finding demonstrated. Mild interstitial pulmonary edema suspected. No significant pericardial or pleural fluid. No concerning bony finding. IMPRESSION: No evidence of pulmonary thromboembolism. Mild interstitial pulmonary edema suspected.
--- NOTE | 2021-07-10 17:55 | EDPHYS ---
Physician Documentation [facility] Name: Yeyo Pelayo Age: 80 yrs Sex: Male : 1940 Arrival Date: 07/10/2021 Time: 10:21 Bed 14 Private MD: Lalo Munroe H ED Physician Jean Madera HPI: 07/10 10:51 This 80 yrs old Male presents to ER via Ambulatory with complaints of High Blood jmm Pressure, Nasal Congestion. 10:51 The patient or guardian reports cough. Onset: The symptoms/episode began/occurred jmm gradually, 6 month(s) ago. Modifying factors: The symptoms are alleviated by nothing, the symptoms are aggravated by nothing. Associated signs and symptoms: Pertinent negatives: fever. The patient has not experienced similar symptoms in the past. Historical: - Allergies: 10:24 No Known Drug Allergies; ll1 - Home Meds: 17:01 amlodipine-benazepril 5-20 mg Oral tab 1 cap once daily [Active]; glimepiride 4 mg Oral sm5 tab 1 tab twice a day [Active]; - PMHx: 10:24 Diabetes - NIDDM; Hypertension; Kidney stones; ll1 - PSHx: 10:24 Lithotripsy; ll1 - Immunization history:: Client reports receiving the 2nd dose of the Covid vaccine. - Social history:: Smoking status: Patient denies any tobacco usage or history of. ROS: 10:51 Constitutional: Negative for fever, chills, and weight loss, Cardiovascular: Negative jmm for chest pain, palpitations, and edema. 10:51 Respiratory: Positive for cough, shortness of breath. 10:51 All other systems are negative. 10:51 All other systems are negative. Exam: 10:51 Constitutional: This is a well developed, well nourished patient who is awake, alert, jmm and in no acute distress. Head/Face: atraumatic. Eyes: EOMI, no conjunctival erythema appreciated ENT: Moist Mucus Membranes Neck: Trachea midline, Supple Chest/axilla: Normal chest wall appearance and motion. Cardiovascular: Regular rate and rhythm. No edema appreciated Respiratory: Normal respirations, no respiratory distress appreciated Abdomen/GI: Non distended, soft Back: Normal ROM Skin: General appearance color normal MS/ Extremity: Moves all extremities, no obvious deformities appreciated, no edema noted to the lower extremities Neuro: Awake and alert, normal gait Psych: Behavior is normal, Mood is normal, Patient is cooperative and pleasant Vital Signs: 10:32 Pulse 105; Resp 17; Pulse Ox 99% on R/A; Weight 89.81 kg; Height 6 ft. 1 in. (185.42 ll1 cm); Pain 2/10; 10:34 BP 168 / 73 (auto/); Pulse 92; Resp 19 S; Temp 97.9(O); Pulse Ox 99% on R/A; sm5 11:30 BP 159 / 80; Pulse 88; Resp 20; Pulse Ox 98% ; sm5 12:33 BP 160 / 71; Pulse 83; Resp 22; Pulse Ox 100% ; sm5 13:30 BP 163 / 76; Pulse 85; Resp 19; Pulse Ox 98% ; sm5 14:33 BP 155 / 69; Pulse 80; Resp 17; Pulse Ox 99% ; sm5 15:36 BP 152 / 81; Pulse 83; Resp 18; Pulse Ox 98% ; sm5 16:30 BP 156 / 71; Pulse 83; Resp 18; Pulse Ox 100% ; sm5 18:09 BP 150 / 70; Pulse 79; Resp 16; Pulse Ox 98% ; sm5 10:32 Body Mass Index 26.12 (89.81 kg, 185.42 cm) ll1 MDM: 10:51 Patient medically screened. [facility] 17:53 Data reviewed: vital signs, nurses notes. Counseling: I had a detailed discussion with [facility] the patient and/or guardian regarding: the historical points, exam findings, and any diagnostic results supporting the discharge/admit diagnosis, lab results, radiology results, the need for outpatient follow up, to return to the emergency department if symptoms worsen or persist or if there are any questions or concerns that arise at home. 18:13 ED course: Patient is alert and nontoxic in appearance in the ED. Vital signs are [facility] normal. I do not suspect CAD. Patient did have some complaints of chest pain mainly with cough and also complaints of congestion in the nose which decreased his ability to breathe. Most likely a chronic process that will need to follow-up with ENT, allergy, pulmonology, etc. Patient otherwise given strict return precautions. Patient understood agrees plan of care.. 07/10 10:51 Order name: Basic Metabolic Panel; Complete Time: :48 [facility] 07/10 10:51 Order name: CBC with Diff; Complete Time: 11:37 [facility] 07/10 10:51 Order name: LFT's; Complete Time: 11:48 [facility] 07/10 10:51 Order name: Magnesium; Complete Time: 11:48 [facility] 07/10 10:51 Order name: NT PRO-BNP; Complete Time: 11:48 [facility] 07/10 10:51 Order name: PT-INR; Complete Time: 12:23 [facility] 07/10 10:51 Order name: Troponin (emerg Dept Use Only); Complete Time: 11:48 [facility] 07/10 10:51 Order name: Strep; Complete Time: 11:37 [facility] 07/10 11:15 Order name: [place] Screen Profile [facility] 07/10 11:15 Order name: SARS-COV-2 RT PCR (Document "Date of Onset" if Symptomatic) [facility] 07/10 11:15 Order name: [place] Screen; Complete Time: 12:23 [facility] 07/10 11:15 Order name: SARS-COV-2 RT PCR; Complete Time: 12:23 [facility] 07/10 11:31 Order name: Throat Culture [facility] 07/10 13:32 Order name: Troponin (emerg Dept Use Only); Complete Time: 17:42 [facility] 07/10 10:51 Order name: XRAY Chest (1 view); Complete Time: 11:37 [facility] 07/10 10:51 Order name: EKG; Complete Time: 10:51 [facility] 07/10 10:51 Order name: Cardiac monitoring; Complete Time: 10:58 [facility] 07/10 10:51 Order name: EKG - Nurse/Tech; Complete Time: 10:58 [facility] 07/10 10:51 Order name: IV Saline Lock; Complete Time: 11:16 [facility] 07/10 10:51 Order name: Labs collected and sent; Complete Time: 11:16 [facility] 07/10 10:51 Order name: O2 Per Protocol; Complete Time: 10:58 [facility] 07/10 10:51 Order name: O2 Sat Monitoring; Complete Time: 10:58 [facility] 07/10 11:31 Order name: Labs - recollect needed: please recollect blue top; Complete Time: 11:57 [facility] 07/10 11:48 Order name: CT Chest For PE Angio; Complete Time: 13:07 [facility] Administered Medications: No medications were administered Disposition: 18:32 Co-signature as Attending Physician, Jean Madera MD I agree with the assessment and rn plan of care. Attestation: The patient's history, exam findings, diagnostics, and a summary of any interventions or procedures was reviewed in detail with Bob ABRAHAM. Disposition Summary: 07/10/21 17:54 Discharge Ordered Location: Home [facility] Condition: Stable [facility] Diagnosis - Allergic Sinusitis [facility] Followup: [facility] - With: Ofelia Argueta MD - When: 2 - 3 days - Reason: Recheck today's complaints, Continuance of care, Re-evaluation by your physician Discharge Instructions: - Discharge Summary Sheet [facility] - Allergic Rhinitis, Adult [facility] Forms: - Medication Reconciliation Form [facility] - Thank You Letter [facility] - Antibiotic Education [facility] - Prescription Opioid Use [facility] Prescriptions: - fluticasone propionate 50 mcg/actuation Nasal spray,suspension - spray 2 spray by INTRANASAL route once daily; 1 bottle; Refills: 0, Product [facility] Selection Permitted Signatures: Dispatcher [employer] EDBob Tracey PA PA Jean Levi MD MD rn Martinez, Eric em1 Himanshu Joseph, RN RN ll1 Sharon Calderon RN RN sm5
--- NOTE | 2021-07-10 17:55 | ER ---
Nurse's Notes [facility] Name: Yeyo Pelayo Age: 80 yrs Sex: Male : 1940 Arrival Date: 07/10/2021 Time: 10:21 Bed 14 Private MD: Lalo Munroe H Diagnosis: Allergic Sinusitis Presentation: 07/10 10:32 Chief complaint: Patient states: Nasal congestion off/on since November after getting as ll1 new AC in his room. Feels SOB at times and weak. No appetite. No fever. BP spikes randomly throughout the night for the past week. Chest pain "on the outside" now. Coronavirus screen: Vaccine status: Patient reports receiving the 2nd dose of the covid vaccine. Client denies travel out of the [place] in the last 14 days. congestion, fatigue, Client presents with at least one sign or symptom that may indicate coronavirus-19. Standard/surgical mask placed on the client. Ebola Screen: Patient denies travel to an Ebola-affected area in the 21 days before illness onset. 10:32 Method Of Arrival: Ambulatory ll1 10:34 Initial Sepsis Screen: Does the patient meet any 2 criteria? No. Patient's initial 1 sepsis screen is negative. Does the patient have a suspected source of infection? Yes: Other: nasal congestion. Risk Assessment: Do you want to hurt yourself or someone else? Patient reports no desire to harm self or others. Onset of symptoms was November 29, 2020. 10:34 Acuity: KEN 3 ll1 Triage Assessment: 17:00 General: Appears in no apparent distress. Behavior is calm, cooperative. Pain: Denies sm5 pain. Neuro: Level of Consciousness is awake, alert, Oriented to person, place, time, situation. Cardiovascular: No deficits noted. Respiratory: Reports nasal congestion. Historical: - Allergies: 10:24 No Known Drug Allergies; ll1 - Home Meds: 17:01 amlodipine-benazepril 5-20 mg Oral tab 1 cap once daily [Active]; glimepiride 4 mg Oral sm5 tab 1 tab twice a day [Active]; - PMHx: 10:24 Diabetes - NIDDM; Hypertension; Kidney stones; ll1 - PSHx: 10:24 Lithotripsy; ll1 - Immunization history:: Client reports receiving the 2nd dose of the Covid vaccine. - Social history:: Smoking status: Patient denies any tobacco usage or history of. Screenin:00 Abuse screen: Denies threats or abuse. Denies injuries from another. Nutritional sm5 screening: No deficits noted. Tuberculosis screening: No symptoms or risk factors identified. Fall Risk No fall in past 12 months (0 pts). No secondary diagnosis (0 pts). IV access (20 points). Ambulatory Aid- None/Bed Rest/Nurse Assist (0 pts). Gait- Normal/Bed Rest/Wheelchair (0 pts) Mental Status- Oriented to own ability (0 pts). Total Perry Fall Scale indicates No Risk (0-24 pts). Vital Signs: 10:32 Pulse 105; Resp 17; Pulse Ox 99% on R/A; Weight 89.81 kg; Height 6 ft. 1 in. (185.42 ll1 cm); Pain 2/10; 10:34 BP 168 / 73 (auto/); Pulse 92; Resp 19 S; Temp 97.9(O); Pulse Ox 99% on R/A; sm5 11:30 BP 159 / 80; Pulse 88; Resp 20; Pulse Ox 98% ; sm5 12:33 BP 160 / 71; Pulse 83; Resp 22; Pulse Ox 100% ; sm5 13:30 BP 163 / 76; Pulse 85; Resp 19; Pulse Ox 98% ; sm5 14:33 BP 155 / 69; Pulse 80; Resp 17; Pulse Ox 99% ; sm5 15:36 BP 152 / 81; Pulse 83; Resp 18; Pulse Ox 98% ; sm5 16:30 BP 156 / 71; Pulse 83; Resp 18; Pulse Ox 100% ; sm5 18:09 BP 150 / 70; Pulse 79; Resp 16; Pulse Ox 98% ; sm5 10:32 Body Mass Index 26.12 (89.81 kg, 185.42 cm) ll1 ED Course: 10:21 Patient arrived in ED. kc5 10:21 Lalo Munroe DO is Private Physician. kc5 10:23 Arm band placed on Patient placed in an exam room, on a stretcher. ll1 10:24 Bob Whatley [facility] 10:24 Jean Madera MD is Attending Physician. jm 10:34 Yumiko, Sharon, RN is Primary Nurse. 5 10:35 Triage completed. ll1 10:43 EKG done, by cytopathology technologist. reviewed by Jean Madera MD. lt3 11:00 Inserted saline lock: 20 gauge in right antecubital area, using aseptic technique. 5 Blood collected. 11:28 SARS-COV-2 RT PCR (Document "Date of Onset" if Symptomatic) Sent. 5 11:28 [place] Screen Profile Sent. sm5 11:29 XRAY Chest (1 view) In Process Unspecified. EDMS 12:42 CT Chest For PE Angio In Process Unspecified. EDMS 17:01 Patient has correct armband on for positive identification. Bed in low position. Call [facility] light in reach. Side rails up X2. 17:01 No provider procedures requiring assistance completed. [facility] 17:13 Troponin (emerg Dept Use Only) Sent. [facility] 17:54 Ofelia Argueta MD is Referral Physician. [facility] 18:10 IV discontinued, intact, bleeding controlled, No redness/swelling at site. [facility] Administered Medications: No medications were administered Outcome: 17:54 Discharge ordered by MD. [facility] 18:10 Discharged to home ambulatory. [facility] 18:10 Condition: good 18:10 Discharge instructions given to patient, Instructed on discharge instructions, follow up and referral plans. Prescriptions given X 1. 18:10 Patient left the ED. [facility] Signatures: Dispatcher [employer] EDMS Bob Whatley PA PA jmm Lewis, Lynsay RN RN ll1 Lucy Mendoza kc5 Sharon Calderon, CACHORRO RN sm5 Beverly Jones lt3
[2021-07-10 18:30] VITALS: TEMP 97.9
[2021-07-10 18:39] VITALS: BP 150/70; O2SAT 98
== END 2021-07-10 18:10 | disposition home or self-care (01) ==
LOC: ER 10:11
DX: J30.9 Allergic rhinitis, unspecified (principal); I10 Essential (primary) hypertension; E11.9 Type 2 diabetes mellitus without complications; Z20.822 Contact with and (suspected) exposure to COVID-19
CPT/HCPCS: 93005; 87070; 85025; 80048; 36415; 83735; 86308; 85610; 80076; 87081; 84484 ×2; 83880; 71275; 71045; 99284; U0003; Q9967

== ENCOUNTER 2021-07-21 08:47 | Observation (INO) | payer OTHER ==
[2021-07-21 09:37] LABS: Absolute Lymphocytes (CBC) 1.1 K/uL (0.7-4.9); Basophils % 0.4 % (0-1.3); Hematocrit 43.2 % (39.6-49.0); MPV 7.4 fL (7.6-11.3); RBC Red Blood Cell Count 4.66 M/uL (4.33-5.43)
[2021-07-21 09:44] LABS: Protime INR 0.98
[2021-07-21 09:55] LABS: BUN Blood Urea Nitrogen 23 mg/dL (7-18); Bicarbonate 22 mmol/L (21-32); Glucose Level 238 mg/dL (74-106); Magnesium 2.6 mg/dL (1.8-2.4); NT PRO-BNP 181 pg/mL (<450); Potassium 3.7 mmol/L (3.5-5.1); Sodium Level 136 mmol/L (136-145); Troponin (Emerg Dept Use Only) < 0.02 ng/mL (0.0-0.045)
--- NOTE | 2021-07-21 10:30 | RAD REPORT ---
EXAM DESCRIPTION: CT - Angio Aorta For Dissection - 07/21/2021 9:53 am CLINICAL HISTORY: Pain radiates to back;Chest pain COMPARISON: CT chest study January 28 TECHNIQUE: Dynamically enhanced 3 mm thick images of the chest, abdomen, and upper pelvis were obtai robin during administration of approximately 150mL Isovue 370 IV contrast. Sagittal, axial and coronal reconstruction images were generated using MIP and reviewed. Exam utilizes a protocol to evaluate ent tr course of the aorta. All CT scans are performed using dose optimization technique as appropriate and may include automated exposure control or mA/KV adjustment according to patient size. FINDINGS: Aorta is normal in diameter with no dissection or other acute aortic findings. Aortic wall atherosclerotic calcifications are present with minimal thoracic aortic plaquing. Abdominal aortic p laquing changes are more prominent but do not cause any significant luminal narrowing. No displaced c alcifications. Iliac artery atherosclerotic wall calcifications are present without stenosis. Reconst ruction images show no significant findings. Pulmonary arteries are normal as well. No cardiomegaly, pericardial thickening or pericardial effusio n. Coronary artery calcifications are present. No mass or infiltrate in the lung parenchyma. No pleural thickening, pleural effusion or pneumothorax . No abnormal mediastinal or hilar mass or lymphadenopathy seen. No chest wall mass or abnormal axillar y lymphadenopathy. Celiac artery shows no significant finding. There are significant plaquing changes in the superior me senteric artery in the initial 3.5 cm of the vessel. 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 Single left renal artery shows origin atherosclerotic calcification without significant luminal narrowing. Two artery s upply the right kidney with no significant plaquing changes seen. Solid abdominal viscera and bowel s how no significant findings. Renal cortical thinning is present no focal component or acute process seen. There is a normal variant retroaortic left renal vein. No mass or abnormal lymphadenopathy. No free air, free fluid or inflammatory stranding. No urinary bladder abnormality. Fat only left inguin al hernia is present. Disc and bone degenerative changes are present most prominent in the midthoracic spine. No compressio n fracture or pathologic bone process seen. IMPRESSION: Negative CT scan of the aorta for acute finding. Above detailed findings are stable from January 28 imaging. No acute findings in the chest. Patient has thoracic spine degenerative change but no fracture or pat hologic bone process. Significant calcified and noncalcified plaquing changes in the superior mesenteric artery without due 60% stenosis. Celiac artery and a large inferior mesenteric arteries show no significant disease. No mesenteric ischemia findings.
--- NOTE | 2021-07-21 10:33 | RAD REPORT ---
EXAM DESCRIPTION: RAD - Chest Single View - 07/21/2021 10:12 am CLINICAL HISTORY: CHEST PAIN COMPARISON: July 10 TECHNIQUE: AP portable chest image was obtained 07/21/2021 10:12 am . FINDINGS: No new mass, consolidation or failure finding. Mildly prominent interstitial pattern has n ot changed. Heart and vasculature are normal. No measurable pleural effusion and no pneumothorax. No acute bony abnormality seen. No acute aortic findings suspected. IMPRESSION: No acute cardiopulmonary process. No significant change from comparison study.
--- NOTE | 2021-07-21 11:13 | EDPHYS ---
Physician Documentation [facility] Name: Yeyo Pelayo Age: 80 yrs Sex: Male : 1940 Arrival Date: 07/21/2021 Time: 08:48 Bed 17 Private MD: ED Physician Jean Madera HPI: 07/21 09:12 This 80 yrs old Male presents to ER via Ambulatory with complaints of Chest Pain. rn 09:12 The patient or guardian reports chest pain that is located primarily in the substernal rn area. Onset: last night. The pain radiates to Associated signs and symptoms: Pertinent positives: shortness of breath, Pertinent negatives: abdominal pain, cough, diaphoresis, lower extremity swelling, near syncope, palpitations. The chest pain is described as aching, sharp. Duration: The patient or guardian reports multiple episodes, that are intermittent. Modifying factors: The symptoms are alleviated by nothing. the symptoms are aggravated by nothing. Severity of pain: At its worst the pain was moderate in the emergency department the pain is unchanged. The patient has not experienced similar symptoms in the past. The patient has not recently seen a physician. Patient reports chest pain that began around 10 PM last night, intermittent, central, radiates to back, feels sharp and dull at the same time. Not worsened by deep inspiration. Denies cough. Denies fever. Denies trauma. No known history of heart attack. No history of DVT or PE.. Historical: - Allergies: 08:59 No Known Allergies; ss - Home Meds: 08:59 amlodipine-benazepril 5-20 mg Oral tab 1 cap once daily [Active]; glimepiride 4 mg Oral ss tab 1 tab twice a day [Active]; - PMHx: 08:59 Diabetes - NIDDM; Hypertension; Kidney stones; ss - PSHx: 08:59 Lithotripsy; ss - Immunization history:: Client reports receiving the 2nd dose of the Covid vaccine. - Social history:: Smoking status: Patient denies any tobacco usage or history of. - Family history:: not pertinent. - Hospitalizations: : No recent hospitalization is reported. ROS: 09:12 Constitutional: Negative for fever, chills, and weight loss, Eyes: Negative for injury, rn pain, redness, and discharge, Neck: Negative for injury, pain, and swelling, Cardiovascular: Negative for palpitations, and edema, Respiratory: Negative for shortness of breath, cough, wheezing Abdomen/GI: Negative for abdominal pain, nausea, vomiting, diarrhea, and constipation, Back: Negative for injury MS/Extremity: Negative for injury and deformity, Skin: Negative for injury, rash, and discoloration, Neuro: Negative for headache, weakness, numbness, tingling, and seizure. Exam: 09:12 Constitutional: This is a well developed, well nourished patient who is awake, alert, rn appears anxious Head/Face: Normocephalic, atraumatic. Eyes: Periorbital areas with no swelling, redness, or edema. Cardiovascular: Regular rate and rhythm. No pulse deficits. Respiratory: Mild tachypnea. Able to slow his breathing down with coaching Abdomen/GI: Soft, non-tender Skin: Warm, dry MS/ Extremity: Pulses equal, no cyanosis. Neurovascular intact. Full, normal range of motion. Equal circumference. Neuro: Awake and alert, GCS 15 09:15 ECG was reviewed by the Attending Physician. rn Vital Signs: 08:58 BP 138 / 76; Pulse 81; Resp 16; Temp 97.1(TE); Pulse Ox 100% on R/A; Weight 79.38 kg; ss Height 6 ft. 1 in. (185.42 cm); Pain 10/10; 09:36 BP 139 / 68; Pulse 66; Resp 26; Temp 97.7(O); Pulse Ox 100% on R/A; Pain 6/10; jh6 10:15 BP 130 / 66; Pulse 82; Resp 20 S; Pulse Ox 99% on R/A; jg9 11:00 BP 154 / 72; Pulse 82; Resp 17 S; Pulse Ox 100% on R/A; jg9 11:45 BP 130 / 69; Pulse 64; Resp 20 S; Pulse Ox 100% on R/A; jg9 12:21 BP 157 / 75; Pulse 65; Resp 22 S; Pulse Ox 100% on R/A; jg9 12:30 BP 144 / 68; Pulse 64; Resp 23; Pulse Ox 97% on R/A; jg9 13:00 BP 160 / 70; Pulse 64; Resp 20; Pulse Ox 99% on R/A; jg9 13:15 BP 177 / 77; Pulse 68; Resp 22 S; Pulse Ox 100% on R/A; jg9 08:58 Body Mass Index 23.09 (79.38 kg, 185.42 cm) ss MDM: 09:04 Patient medically screened. rn 11:09 Differential diagnosis: acute myocardial infarction, acute pericarditis, anxiety, rn coronary artery disease chest wall pain, costochondritis, pleurisy, pneumonia. 11:10 Data reviewed: vital signs, nurses notes, and as a result, I will admit patient. rn 11:10 HEART Score: History: Moderately Suspicious (1), ECG: Non specific repolarization rn disturbance / LBTB / PM (1), Age: > or = 65 years (2), Risk Factors: > or = 3 Risk factors for atherosclerotic disease (2), Troponin: < or = 1 x Normal Limit (0), Total Score = 6. The patient was given aspirin in the Emergency Department. Counseling: I had a detailed discussion with the patient and/or guardian regarding: the historical points, exam findings, and any diagnostic results supporting the discharge/admit diagnosis, lab results, radiology results, the need for further work-up and treatment in the hospital. Response to treatment: the patient's symptoms have markedly improved after treatment, and as a result, I will admit patient. Admission orders: after a detailed discussion of the patient's condition and case, the admit orders are written by me. 07/21 09:10 Order name: Basic Metabolic Panel; Complete Time: 10:50 rn 07/21 09:10 Order name: CBC with Diff; Complete Time: 10:50 rn 07/21 09:10 Order name: Magnesium; Complete Time: 10:50 rn 07/21 09:10 Order name: NT PRO-BNP; Complete Time: 10:50 rn 07/21 09:10 Order name: PT-INR; Complete Time: 10:50 rn 07/21 09:10 Order name: Troponin (emerg Dept Use Only); Complete Time: 10:50 rn 07/21 09:10 Order name: XRAY Chest (1 view); Complete Time: 10:50 rn 07/21 09:10 Order name: EKG; Complete Time: 09:10 rn 07/21 09:10 Order name: Cardiac monitoring; Complete Time: 10:57 rn 07/21 09:10 Order name: EKG - Nurse/Tech; Complete Time: 10:57 rn 07/21 09:10 Order name: IV Saline Lock; Complete Time: 10:57 rn 07/21 09:12 Order name: CT Aorta for Dissection; Complete Time: 10:50 rn 07/21 09:12 Order name: SARS-COV-2 RT PCR (Document "Date of Onset" if Symptomatic); Complete Time: rn 10:50 07/21 09:10 Order name: Labs collected and sent; Complete Time: 10:57 rn 07/21 09:10 Order name: O2 Sat Monitoring; Complete Time: 11:47 rn EC:15 Rate is 79 beats/min. Rhythm is regular. QRS [place] is Normal. CA interval is normal. QRS rn interval is prolonged at 140 msec. QT interval is normal. No Q waves. T waves are Normal. No ST changes noted. Clinical impression: NSR with RBBB. Interpreted by me. Reviewed by me. Administered Medications: 11:43 Drug: Aspirin Chewable Tablet 324 mg Route: PO; jg9 11:51 Follow up: Response: No adverse reaction; No change in condition jg9 Disposition Summary: 07/21/21 11:12 Hospitalization Ordered Hospitalization Status: Observation rn Provider: Jimbo Barraza rn Location: Telemetry/MedSurg (observation) rn Condition: Stable rn Problem: new rn Symptoms: have improved rn Bed/Room Type: Standard rn Room Assignment: [facility](07/21/21 13:30) Diagnosis - Chest pain, unspecified rn Forms: - Medication Reconciliation Form rn - SBAR form rn Signatures: Dispatcher [employer] Divya Hayward RN Jean Woodson MD MD rn Smirch, Shelby, RN RN ss Gilmore, Jennifer jg9 Corrections: (The following items were deleted from the chart) 13:30 11:12 rn dw
--- NOTE | 2021-07-21 11:13 | ER ---
Nurse's Notes [facility] Name: Yeyo Pelayo Age: 80 yrs Sex: Male : 1940 Arrival Date: 07/21/2021 Time: 08:48 Bed 17 Private MD: Diagnosis: Chest pain, unspecified Presentation: 07/21 08:58 Chief complaint: Patient states: Chest pain that began at 10pm yesterday evening. ss Coronavirus screen: Client denies travel out of the [place] in the last 14 days. Ebola Screen: Patient denies exposure to infectious person. Patient denies travel to an Ebola-affected area in the 21 days before illness onset. Initial Sepsis Screen: Does the patient meet any 2 criteria? No. Patient's initial sepsis screen is negative. Does the patient have a suspected source of infection? No. Patient's initial sepsis screen is negative. Risk Assessment: Do you want to hurt yourself or someone else? Patient reports no desire to harm self or others. Onset of symptoms was June 20, 2021. 08:58 Method Of Arrival: Ambulatory ss 08:58 Acuity: KEN 2 ss Historical: - Allergies: 08:59 No Known Allergies; ss - Home Meds: 08:59 amlodipine-benazepril 5-20 mg Oral tab 1 cap once daily [Active]; glimepiride 4 mg Oral ss tab 1 tab twice a day [Active]; - PMHx: 08:59 Diabetes - NIDDM; Hypertension; Kidney stones; ss - PSHx: 08:59 Lithotripsy; ss - Immunization history:: Client reports receiving the 2nd dose of the Covid vaccine. - Social history:: Smoking status: Patient denies any tobacco usage or history of. - Family history:: not pertinent. - Hospitalizations: : No recent hospitalization is reported. Screenin:37 Abuse screen: Denies threats or abuse. Nutritional screening: No deficits noted. jh6 Tuberculosis screening: No symptoms or risk factors identified. Fall Risk None identified. Assessment: 09:33 General: Appears distressed, well groomed, well developed, well nourished, Behavior is jh6 anxious, Reports chest pain dull to l side of chest. Pain: Complains of pain in anterior aspect of left upper chest and left breast Pain does not radiate. Pain currently is 6 out of 10 on a pain scale. Quality of pain is described as dull, Pain began 1 day ago. Is intermittent. Cardiovascular: Reports chest pain, sinus issues. Respiratory: Airway is patent Trachea midline Respiratory effort is even, unlabored, Respiratory pattern is regular. 10:59 Reassessment: No changes from previously documented assessment. Patient and/or family jg9 updated on plan of care and expected duration. Pain level reassessed. Vital Signs: 08:58 BP 138 / 76; Pulse 81; Resp 16; Temp 97.1(TE); Pulse Ox 100% on R/A; Weight 79.38 kg; ss Height 6 ft. 1 in. (185.42 cm); Pain 05/26; 09:36 BP 139 / 68; Pulse 66; Resp 26; Temp 97.7(O); Pulse Ox 100% on R/A; Pain 01/24; jh6 10:15 BP 130 / 66; Pulse 82; Resp 20 S; Pulse Ox 99% on R/A; jg9 11:00 BP 154 / 72; Pulse 82; Resp 17 S; Pulse Ox 100% on R/A; jg9 11:45 BP 130 / 69; Pulse 64; Resp 20 S; Pulse Ox 100% on R/A; jg9 12:21 BP 157 / 75; Pulse 65; Resp 22 S; Pulse Ox 100% on R/A; jg9 12:30 BP 144 / 68; Pulse 64; Resp 23; Pulse Ox 97% on R/A; jg9 13:00 BP 160 / 70; Pulse 64; Resp 20; Pulse Ox 99% on R/A; jg9 13:15 BP 177 / 77; Pulse 68; Resp 22 S; Pulse Ox 100% on R/A; jg9 08:58 Body Mass Index 23.09 (79.38 kg, 185.42 cm) Vitals: 09:36 Cardiac Rhythm Assessment Regular Sinus rhythm. jh6 ED Course: 08:48 Patient arrived in ED. as 08:59 Triage completed. ss 08:59 Arm band placed on left wrist. ss 09:03 Jean Madera MD is Attending Physician. rn 09:33 Helen Cunningham RN is Primary Nurse. [facility] 09:36 No provider procedures requiring assistance completed. Inserted saline lock: 20 gauge jh6 in right antecubital area, using aseptic technique. Patient maintains SpO2 saturation greater than 95% on room air. 09:37 No apparent distress. Awaiting CT Scan. jh6 09:37 Call light in reach. Side rails up X 1. lunchroom monitor on. Pulse ox on. NIBP on. jh6 09:[address] jh6 09:53 CT Aorta for Dissection In Process Unspecified. EDMS 10:12 XRAY Chest (1 view) In Process Unspecified. EDMS 11:00 ED physician to see patient. jg9 11:02 No apparent distress. Awaiting disposition. increase heat in room. jg9 11:11 Jimbo Barraza is Hospitalizing Provider. rn 12:19 PO fluids given. lunch box provided. jg9 12:51 No apparent distress. Resting quietly. Awaiting bed assignment. jg9 12:57 Diet: Patient given snack. jg9 13:54 Patient admitted, IV remains in place. jg9 Administered Medications: 11:43 Drug: Aspirin Chewable Tablet 324 mg Route: PO; jg9 11:51 Follow up: Response: No adverse reaction; No change in condition jg9 Outcome: 11:12 Decision to Hospitalize by Provider. rn 13:54 Admitted to Med/surg accompanied by tech, via wheelchair, Report called to [facility] jg9 13:54 Condition: stable 14:20 Patient left the ED. jg9 Signatures: Dispatcher [employer] Kendal Castro Roman, MD MD rn Smirch, Shelby, RN RN Helen Cunningham RN RN [facility] Helen Earl jg9
[2021-07-21] MEDS ORDERED: ASPIRIN 81 MG CHEWABLE TABLET ONE (11:39)
--- NOTE | 2021-07-21 11:43 | P.HP ---
Certification for Inpatient Patient admitted to: Observation Practitioner: I am a practitioner with admitting privileges, knowledge of patient current condition, hospital course, and medical plan of care. Services: Services provided to patient in accordance with Admission requirements found in Title 42 Section 412.3 of the Code of Federal Regulations Patient History Date of Service: 07/21/21 Reason for admission: Chest pain History of Present Illness: 80-year-old gentleman with a history of hypertension and type 2 diabetes presented to the emergency department with a complaint of chest pain of onset last night, which occurred at rest, associated with palpitation, located in the left chest and radiating to the back, no known relieving or aggravating factors. Patient report similar episodes over the last few days. Initial troponin in the ED is negative. Chest x-ray shows no acute disease. EKG demonstrated sinus rhythm with right bundle branch block. Blood pressure elevated on arrival. Pa tient is placed in observation for ACS rule out. Allergies No Known Drug Allergies Allergy (Verified 08/18/16 02:20) Unknown Home Medications: Amlodipine/Atorvastatin [Amlodipine-Atorvast 5-20 mg] 1 tab PO DAILY 07/21/21 Glimepiride 4 mg PO BID 07/21/21 - Past Medical/Surgical History Diabetic: Yes -: Hypertension -: Type 2 diabetes -: Nephrolithiasis -: urethral stent placement -: cystoscopy -: hernia repair - Family History Mother Notes: alzheimers Father -: Cancer Notes: colon - Social History Smoking Status: Former smoker (Quit many years ago.) Alcohol use: No CD- Drugs: No Caffeine use: No Place of Residence: Home Review of Systems Other: Except as documented, all other systems reviewed and negative. Physical Examination - Physical Exam General: Alert, In no apparent distress, Oriented x3 HEENT: Atraumatic, PERRLA, Mucous membr. moist/pink, Sclerae nonicteric Neck: Supple, JVD not distended, No Thyromegaly Respiratory: Clear to auscultation bilaterally, Normal air movement Cardiovascular: No edema, Normal S1 S2, No murmurs, Irregular heart rate/rhythm Gastrointestinal: Normal bowel sounds, Soft and benign, Non-distended, No tenderness Musculoskeletal: No swelling, No tenderness Integumentary: No breakdown, Other (Cyanosis/hemosiderin staining of bilateral feet.) Neurological: Normal speech, Normal strength at 5/5 x4 extr, Cranial nerves 3-12 intact Lymphatics: No axilla or inguinal lymphadenopathy - Studies Laboratory Data (last 24 hrs) 07/21/21 09:22: PT 11.3, INR 0.98 07/21/21 09:22: WBC 7.20 D, Hgb 14.5, Hct 43.2, Plt Count 261 07/21/21 09:22: Sodium 136, Potassium 3.7, BUN 23 H, Creatinine 1.43 H, Glucose 238 H, Magnesium 2.6 H Assessment and Plan - Problems (Diagnosis) (1) Chest pain, rule out acute myocardial infarction Current Visit: No Status: Acute (2) DM2 (diabetes mellitus, type 2) Onset Date: 07/17/14 Current Visit: No Status: Chronic Qualifiers: (3) HTN (hypertension) Onset Date: 07/17/14 Current Visit: No Status: Chronic - Plan Patient experiencing intermittent chest pain. Serial EKG shows sinus rhythm with right bundle branch block. Troponin trended negative so far. Patient placed under observation. Continue to trend troponin. Aspirin and Plavix Metoprolol bid Given patient intermittent chest pain will give a dose of Lovenox. Obtain echocardiogram Cardiology consult I suspect patient has peripheral vascular disease given cyanosis in bilateral feet. Will obtain arterial Doppler of bilateral lower extremities. Supportive measures-IV morphine as needed for pain. Ativan 1 mg prn. Upon further discussion with patient, he is a Confucianist and does not want any blood transfusion. He also stated he does not want any cardiac catheterization. He has a medical power of tree climber with a directive stating no life-sustaining measures. He wishes to be DNR and DNI. - Advance Directives Does patient have a Living Will: No Does patient have a Durable POA for Healthcare: No
[2021-07-21] MEDS ORDERED: MORPHINE 4 MG/ML SYR IV PRN (14:05)
[2021-07-21 14:44] VITALS: BMI 21.0
[2021-07-21 14:53] LABS: HDL Cholesterol 47 mg/dL (40-60); LDL Cholesterol, Calculated 100 (<130); Troponin I < 0.02 ng/mL (0.0-0.045)
[2021-07-21 15:04] VITALS: O2SAT 100
[2021-07-21] MEDS: INSULIN -REGULAR HUMAN 50 UNIT/0.5 ML ML SQ SCH ×2 (16:30→21:05)
[2021-07-21] MEDS ORDERED: INFLUENZA VACCINE (for 6+ mo) 0.5 ML DOSE IMVAC ONE (17:00)
[2021-07-21] MEDS ORDERED: PNEUMOCOCCAL VACCINE 0.5 ML IMVAC ONE (17:00)
[2021-07-21] MEDS: NITROGLYCERIN 0.4 MG/TAB SL PRN ×3 (17:30→17:39)
[2021-07-21] MEDS ORDERED: LORazepam 2 MG/ML VIAL IV PRN (17:50)
[2021-07-21] MEDS ORDERED: ENOXAPARIN 80 MG/0.8 ML SQ ONE (17:52)
[2021-07-21] MEDS: METOPROLOL TAR 25 MG TAB PO SCH (18:08)
[2021-07-22] MEDS: METOPROLOL TAR 25 MG TAB PO SCH (05:55)
[2021-07-22 06:09] LABS: Absolute Lymphocytes (CBC) 1.5 K/uL (0.7-4.9); Basophils % 0.9 % (0-1.3); Hematocrit 40.2 % (39.6-49.0); Lymphocytes % 24.9 % (15.3-44.8); MPV 7.4 fL (7.6-11.3); RBC Red Blood Cell Count 4.36 M/uL (4.33-5.43)
[2021-07-22 06:12] LABS: Protime INR 0.96
[2021-07-22 06:29] LABS: Magnesium 2.8 mg/dL (1.8-2.4); Phosphorus 3.8 mg/dL (2.5-4.9); Thyroid Stimulating Hormone 0.997 uIU/mL (0.360-3.740)
[2021-07-22] MEDS: INSULIN -REGULAR HUMAN 50 UNIT/0.5 ML ML SQ SCH ×2 (07:30→11:30)
[2021-07-22] MEDS ORDERED: ASPIRIN EC 81 MG TAB PO SCH (09:00)
[2021-07-22] MEDS ORDERED: ENOXAPARIN 40 MG/0.4 ML SQ SCH (09:00)
[2021-07-22 13:09] VITALS: TEMP 97.6
--- NOTE | 2021-07-22 13:39 | RAD REPORT ---
EXAM DESCRIPTION: US - Upper Lower Extrem Art Multi - 07/22/2021 1:23 pm CLINICAL HISTORY: Leg pain COMPARISON: None FINDINGS: The left popliteal artery is occluded distally. The proximal left popliteal artery is patent with bip hasic waveforms. Monophasic waveforms are present within the left dorsalis pedis artery. The posterio r tibial artery is occluded on the left. On the right, there are biphasic waveforms throughout the right lower extremity excluding the right p osterior tibial artery which has a monophasic waveform. IMPRESSION: 1. Left popliteal artery and posterior tibial artery occlusions . Monophasic waveforms i n the left dorsalis pedis artery consistent with a popliteal artery occlusion. 2. Biphasic waveforms throughout except for the right posterior tibial artery which has a monophasic waveform consistent with a hemodynamically significant stenosis at this location.
--- NOTE | 2021-07-22 14:08 | P.DS ---
Admission Date: 07/21/21 Discharge Date: 07/22/21 Disposition: ROUTINE DISCHARGE Discharge Condition: FAIR Reason for Admission: Chest pain Consultations: Cardiology-Dr. Yap - Problems (1) Chest pain, rule out acute myocardial infarction Current Visit: No Status: Acute (2) DM2 (diabetes mellitus, type 2) Onset Date: 07/17/14 Current Visit: No Status: Chronic Qualifiers: (3) HTN (hypertension) Onset Date: 07/17/14 Current Visit: No Status: Chronic Brief History of Present Illness: 80-year-old gentleman with a history of hypertension and type 2 diabetes presented to the emergency department with a complaint of chest pain of sudden onset during the night, which occurred at rest, associated with palpitation, l ocated in the left chest and radiating to the back, no known relieving or aggravating factors. Patient report similar episodes over the last few days. Initial troponin in the ED is negative. Chest x-ray shows no acute disease. EKG demonstrated sinus rhythm with right bundle branch block. Blood pressure elevated on arrival. Patient is placed in observation for ACS rule out. Hospital Course: Patient placed under observation on the medical floor. Troponin trended negative. His chest pain appears to be related to rapid heart rate. EKG demonstrates a sinus tachycardia. His symptoms resolved after he was placed on metoprolol. Heart rate on the metoprolol range from 56 to 69. Patient stated he is a Gnosticist and does not want any blood transfusion. He initially stated he does not want any cardiac catheterization or any cardiac intervention but has now agreed to follow with cardiology-Dr. Osei in the office for further evaluation with stress test and cardiac cath if needed. He has a medical power of divorce attorney with a directive stating no life-sustaining measures. He wishes to be DNR and DNI. His left foot looked cyanosed and there was a suspi cion for peripheral vascular disease. Arterial Doppler of lower extremities demonstrated Left popliteal artery and posterior tibial artery occlusions . Monophasic waveforms in the left dorsalis pedis artery consistent with a popliteal artery occlusion. Biphasic waveforms throughout the right lower extremity except for the right posterior tibial artery which has a monophasic waveform consistent with a hemodynamically significant stenosis at this location. Findings communicated to the patient. Patient seen and evaluated by cardiology. He is placed on medical treatment for CAD and PVD which include aspirin, Plavix and Lipitor. Patient will follow with Dr. Osei for further evaluation of the peripheral vascular disease. Vitals are stable. He is currently asymptomatic. He is also discharged with metoprolol. He takes amlodipine for hypertension which has been replaced with the metoprolol. Vital Signs/Physical Exam: Temp Pulse Resp BP Pulse Ox 97.6 F 69 18 151/63 H 100 07/22/21 12:00 07/22/21 12:00 07/22/21 12:00 07/22/21 12:00 07/22/21 12:00 General: Alert, In no apparent distress, Oriented x3 HEENT: Mucous membr. moist/pink Neck: JVD not distended Respiratory: Clear to auscultation bilaterally, Normal air movement Cardiovascular: No edema, Regular rate/rhythm, Normal S1 S2, No murmurs Capillary refill: <2 Seconds Gastrointestinal: Normal bowel sounds, Soft and benign, Non-distended, No tenderness Musculoskeletal: No swelling Integumentary: Cyanosis (Left foot) Neurological: Normal speech, Normal strength at 5/5 x4 extr, Cranial nerves 3-12 intact Laboratory Data at Discharge: WBC 6.00 K/uL (4.3-10.9) D 07/22/21 05:30 Hgb 13.7 g/dL (13.6-17.9) 07/22/21 05:30 Hct 40.2 % (39.6-49.0) 07/22/21 05:30 Plt Count 246 K/uL (152-406) 07/22/21 05:30 PT 11.0 SECONDS (9.5-12.5) 07/22/21 05:30 INR 0.96 07/22/21 05:30 Sodium 143 mmol/L (136-145) 07/22/21 05:30 Potassium 4.0 mmol/L (3.5-5.1) 07/22/21 05:30 BUN 18 mg/dL (7-18) 07/22/21 05:30 Creatinine 1.25 mg/dL (0.55-1.3) 07/22/21 05:30 Glucose 129 mg/dL (74-106) H 07/22/21 05:30 Phosphorus 3.8 mg/dL (2.5-4.9) 07/22/21 05:30 Magnesium 2.8 mg/dL (1.8-2.4) H 07/22/21 05:30 Troponin I < 0.02 ng/mL (0.0-0.045) 07/21/21 18:11 Triglycerides 165 mg/dL (<150) H 07/21/21 14:20 Cholesterol 180 mg/dL (<200) 07/21/21 14:20 HDL Cholesterol 47 mg/dL (40-60) 07/21/21 14:20 Cholesterol/HDL Ratio 3.83 07/21/21 14:20 Home Medications: Glimepiride 4 mg PO BID 07/21/21 Aspirin [Aspirin EC 81 MG] 81 mg PO DAILY #30 tablet. 07/22/21 Atorvastatin Calcium [Lipitor] 40 mg PO BEDTIME #30 tab 07/22/21 Cetirizine HCl [Zyrtec] 10 mg PO DAILY #30 capsule 07/22/21 Clopidogrel Bisulfate [Plavix] 75 mg PO DAILY #30 tablet 07/22/21 Fluticasone [Flonase 50mcg Nasal [place]] 2 sprays NS BID #1 btl 07/22/21 Metoprolol Tartrate [Lopressor*] 25 mg PO BID 6AM 6PM #60 tab 07/22/21 Nitroglycerin [Nitrostat*] 0.4 mg SL UD PRN #30 tab 07/22/21 New Medications: Aspirin [Aspirin EC 81 MG] 81 mg PO DAILY #30 tablet. Fluticasone [Flonase 50mcg Nasal [place]] 2 sprays NS BID #1 btl Atorvastatin Calcium [Lipitor] 40 mg PO BEDTIME #30 tab Metoprolol Tartrate [Lopressor*] 25 mg PO BID 6AM 6PM #60 tab Nitroglycerin [Nitrostat*] 0.4 mg SL UD PRN #30 tab PRN Reason: Chest pain Clopidogrel Bisulfate [Plavix] 75 mg PO DAILY #30 tablet Cetirizine HCl [Zyrtec] 10 mg PO DAILY #30 capsule Diet: ADA Activity: Ad vicki Followup: Unknown,U [Primary Care Provider] - Josh Osei MD [ACTIVE - CAN ADMIT] - 1-2 Weeks
--- NOTE | 2021-07-22 16:33 | CON ---
Date of Consultation: 07/22/2021 Reason For Consultation: Chest pain. History Of Present Illness: A 80-year-old male with history of hypertension, diabetes, presents to t he ER with chest pain, tightness that radiates from his pack, occurs at rest and after medications wi th nitroglycerin in the emergency room, the patient became chest pain free and has been since. He is getting up and walking around without any chest pain. Past Medical History: As outlined above in the HPI. Medications: Refer to reconciliation sheet for detailed list. Allergies: NO KNOWN DRUG ALLERGIES. Family History: No premature coronary artery disease or cancer. Social History: Does not smoke or drink. Does not use any drugs. Review of Systems: All systems reviewed and they were negative except what mentioned in the HPI. Physical Examination: Vital Signs: Reviewed. Head and Neck: Pupils are equal, reactive to light. Intact eye movements. No JVD. No cervical lym phadenopathy. Neck: Supple. Thyroid is not enlarged. Lungs: Clear to auscultation bilaterally. No rhonchi, rales, or crackles. No accessory muscle use. Heart: Regular rate and rhythm. No extra sounds. Abdomen: Soft, nontender. Bowel sounds positive. No organomegaly. No masses or hernia. Extremities: No clubbing or cyanosis. Intact pulses. Skin: No rash. No nodules. Neuro: Alert, awake, oriented x3. No acute focal deficits appreciated. Investigations: Troponins x3 are negative. EKG without acute specific abnormalities and echo with n ormal ejection fraction. Assessment And Recommendations: Chest pain. Myocardial infarction was ruled out. No wall motion ab normalities on echo. From Cardiology standpoint, the patient can be released home and we will plan f or exercise stress test as an outpatient. Discussed the plan with the patient and the patient's fami ly. They agreed. The patient can be released today and follow up with me shortly after discharge fo r a stress test. SR/MODL Voice ID: [id number] Report ID: [id number]
[2021-07-22 18:32] VITALS: BP 154/69
--- NOTE | 2021-07-23 07:53 | ECHO ---
HEIGHT: 6 ft 1.5 in WEIGHT: 162 lb 1 oz DATE OF STUDY: 07/22/[address]: alf luis 2-DIMENSIONAL: YES M.MODE: YES DOPPLER: YES COLOR FLOW: YES TDS: NO PORTABLE: NO DEFINITY: NO BUBBLE STUDY: NO DIAGNOSIS: CHEST PAIN CARDIAC HISTORY: CATHERIZATION: NO SURGERY: NO PROSTHETIC VALVE: NO PACEMAKER: NO MEASUREMENTS (cm) DIASTOLIC (NORMALS) SYSTOLIC (NORMALS) IVSd 1.1 (0.6-1.2) LA Diam 2.6 (1.9-4.0) LVEF 55-60% LVIDd 4.0 (3.5-5.7) LVIDs 2.7 (2.0-3.5) %FS 33% LVPWd 1.2 (0.6-1.2) Ao Diam 2.9 (2.0-3.7) 2 DIMENSIONAL ASSESSMENT: RIGHT ATRIUM: NORMAL LEFT ATRIUM: NORMAL RIGHT VENTRICLE: NORMAL LEFT VENTRICLE: NORMAL TRICUSPID VALVE: NORMAL MITRAL VALVE: NORMAL PULMONIC VALVE: NORMAL AORTIC VALVE: MILD AORTIC REGURGITATION PERICARDIAL EFFUSION: NONE AORTIC ROOT: NORMAL LEFT VENTRICULAR WALL MOTION: NORMAL. DOPPLER/COLOR FLOW: SEE BELOW. COMMENTS: NORMAL LEFT VENTRICULAR EJECTION FRACTION 55-60%. NORMAL WALL MOTION. MILD AORTIC REGURGITATION. TECHNOLOGIST: MIGDALIA SAENZ
== END 2021-07-22 17:35 | disposition home or self-care (01) ==
LOC: ER 08:47 → ERHOLD 11:34 → 2ND 13:44
PROVIDERS: ADMIT Internal Medicine; ATTEND Internal Medicine
DX: R07.9 Chest pain, unspecified (principal); E11.9 Type 2 diabetes mellitus without complications; I10 Essential (primary) hypertension; I45.10 Unspecified right bundle-branch block; R00.0 Tachycardia, unspecified; Z20.822 Contact with and (suspected) exposure to COVID-19
CPT/HCPCS: 93005; 93306; 85025 ×2; 80048 ×2; 36415; 83735 ×2; 84100; 85610 ×2; 80061; 82565; 82947 ×5; 84443; 84484 ×3; 83880; 71275; 74175; 71045; 93923; 99285; U0003; Q9967; J1650; G0378 ×3; 93925

== ENCOUNTER 2021-07-23 19:15 | Emergency (ER) | payer OTHER ==
[2012-05-05 14:31] VITALS: BP 186/75
--- NOTE | 2021-07-23 20:57 | ER ---
Nurse's Notes [facility] Name: Yeyo Pelayo Age: 80 yrs Sex: Male : 1940 Arrival Date: 07/23/2021 Time: 19:20 Bed Waiting Private MD: Diagnosis: ED Course: 07/23 19:20 Patient arrived in ED. bp1 20:57 Patient's name was called from ER lobby. No response. Unable to locate patient. Will da3 disposition as left without being seen by a provider. Administered Medications: No medications were administered Outcome: 20:57 Patient left the ED. da3 Signatures: Gunjan Liu David, RN RN da3
== END 2021-07-23 20:57 | disposition left against medical advice (07) ==
LOC: ER 19:15
DX: Z53.21 Procedure and treatment not carried out due to patient leaving prior to being seen by health care provider (principal)
CPT/HCPCS: 93005

== ENCOUNTER 2021-08-03 11:20 | Emergency (ER) | payer OTHER ==
--- NOTE | 2021-08-03 13:48 | RAD REPORT ---
EXAM DESCRIPTION: RAD - Chest Single View - 08/03/2021 1:05 pm CLINICAL HISTORY: Chest pain;Dyspnea Chest pain. COMPARISON: Chest Single View dated 07/21/2021; Chest Single View dated 07/10/2021; Chest Pa And Lat (2 Views) dated 03/13/2021; Chest Single View dated 01/28/2021 FINDINGS: Portable technique limits examination quality. The lungs are mildly emphysematous but grossly clear. The heart is upper limit of normal in size. No displaced fractures. IMPRESSION: Mild COPD.
[2021-08-03] MEDS ORDERED: DIAZEPAM 5 MG TABLET ONE (14:26)
[2021-08-03 14:37] LABS: Absolute Lymphocytes (CBC) 1.2 K/uL (0.7-4.9); Basophils % 0.7 % (0-1.3); Hematocrit 42.4 % (39.6-49.0); Lymphocytes % 16.1 % (15.3-44.8); MPV 7.2 fL (7.6-11.3); RBC Red Blood Cell Count 4.55 M/uL (4.33-5.43)
[2021-08-03 14:38] LABS: Protime INR 0.94
[2021-08-03 14:57] LABS: ALT/SGPT 21 U/L (12-78); AST/SGOT 18 U/L (15-37); Albumin 3.5 g/dL (3.4-5.0); Alkaline Phosphatase 87 U/L (45-117); BUN Blood Urea Nitrogen 15 mg/dL (7-18); Bicarbonate 28 mmol/L (21-32); Bilirubin Direct 0.1 mg/dL (0-0.2); Bilirubin Total 0.5 mg/dL (0.2-1.0); Glucose Level 127 mg/dL (74-106); Magnesium 2.9 mg/dL (1.8-2.4); NT PRO-BNP 218 pg/mL (<450); Potassium 4.1 mmol/L (3.5-5.1); Protein, Total 7.7 g/dL (6.4-8.2); Sodium Level 138 mmol/L (136-145); Troponin (Emerg Dept Use Only) < 0.02 ng/mL (0.0-0.045)
--- NOTE | 2021-08-03 15:53 | ER ---
Nurse's Notes [facility] Name: Yeyo Pelayo Age: 80 yrs Sex: Male : 1940 Arrival Date: 08/03/2021 Time: 11:22 Bed 19 Private MD: Diagnosis: Chest pain, unspecified;Generalized anxiety disorder;Hyperventilation Presentation: 08/03 11:52 Chief complaint: Patient states: "I have extreme allergies and my nose is plugged up, ss but now it's gotten so bad that it's forming a paste in my mouth like thick syrup.". Coronavirus screen: Client denies travel out of the [place] in the last 14 days. Ebola Screen: Patient denies exposure to infectious person. Patient denies travel to an Ebola-affected area in the 21 days before illness onset. Initial Sepsis Screen: Does the patient meet any 2 criteria? No. Patient's initial sepsis screen is negative. Does the patient have a suspected source of infection? No. Patient's initial sepsis screen is negative. Risk Assessment: Do you want to hurt yourself or someone else? Patient reports no desire to harm self or others. Onset of symptoms was August 03, 2021. 11:52 Method Of Arrival: Ambulatory ss 11:52 Acuity: KEN 4 ss Triage Assessment: 14:05 General: Appears "scared". Behavior is calm. Pain: Complains of pain in chest. EENT: No jg9 deficits noted. Neuro: No deficits noted. Cardiovascular: Reports Chest pain. Respiratory: Reports thick sputum increasing worsening. GI: No deficits noted. : No deficits noted. Derm: No deficits noted. Musculoskeletal: No deficits noted. Historical: - Allergies: 11:55 No Known Allergies; ss - PMHx: 11:55 Diabetes - NIDDM; Hypertension; Kidney stones; ss - PSHx: 11:55 Lithotripsy; ss - Immunization history:: Client reports receiving the 2nd dose of the Covid vaccine. - Social history:: Smoking status: Patient denies any tobacco usage or history of. - Family history:: not pertinent. - Hospitalizations: : No recent hospitalization is reported. Screenin:04 Abuse screen: Denies threats or abuse. Denies injuries from another. Nutritional jg9 screening: No deficits noted. Tuberculosis screening: No symptoms or risk factors identified. Fall Risk None identified. Assessment: 15:16 Reassessment: Patient appears in no apparent distress at this time. Patient states jg9 feeling better. Patient states symptoms have improved. Patient is relaxed in bed talking with his visitor. Vital Signs: 11:52 Weight 79.38 kg; Height 6 ft. 1 in. (185.42 cm); Pain 0/10; ss 11:55 BP 188 / 79; Pulse 71; Resp 16; Temp 97.1(TE); Pulse Ox 100% on R/A; ss 13:45 BP 172 / 71; Pulse 57; Resp 21 S; Pulse Ox 100% on R/A; jg9 14:30 BP 165 / 84; Pulse 57; Resp 24; Pulse Ox 100% on R/A; jg9 15:00 BP 143 / 75; Pulse 61; Resp 20 S; Pulse Ox 97% on R/A; jg9 15:30 BP 171 / 81; Pulse 56; Resp 51; Pulse Ox 96% on R/A; jg9 15:45 BP 164 / 72; Pulse 64; Resp 16 S; Pulse Ox 65% on R/A; jg9 11:52 Body Mass Index 23.09 (79.38 kg, 185.42 cm) ss ED Course: 11:22 Patient arrived in ED. ds1 11:55 Triage completed. ss 11:55 Arm band placed on right wrist. ss 12:27 Jean Madera MD is Attending Physician. rn 12:45 Helen Earl is Primary Nurse. jg9 12:45 No apparent distress. Patient is more relaxed at this time and conversing with his jg9 visitor at the bedside. Awaiting lab results. Pt visited by Friend. 13:05 XRAY Chest (1 view) In Process Unspecified. EDMS 14:04 Patient has correct armband on for positive identification. Bed in low position. Call jg9 light in reach. Warm blanket given. Pillow given. 14:04 Missed attempt(s): 22 gauge in right forearm. jg9 14:20 Missed attempt(s): 22 gauge in left upper arm. Bleeding controlled, band aid applied, ss catheter tip intact. 15:28 ED physician to see patient. jg9 16:03 No provider procedures requiring assistance completed. jg9 16:04 Patient did not have IV access during this emergency room visit. jg9 Administered Medications: 14:24 CANCELLED (Duplicate Order): Ativan (LORazepam) 0.5 mg IVP once rn 14:28 Drug: Valium (diazepam) 5 mg Route: PO; jg9 15:12 Follow up: Response: No adverse reaction; Anxiety decreased jg9 Outcome: 15:53 Discharge ordered by . rn 16:03 Discharged to home ambulatory, with friend. jg9 16:03 Condition: improved 16:03 Discharge instructions given to patient, friend, Instructed on discharge instructions, follow up and referral plans. ways of coping when feeling anxious, follow tx with psychiatrist. PCP or ENT specialist 16:04 Patient left the ED. jg9 Signatures: Dispatcher [employer] [facility] Ramona Sanchez ds1 Jean Madera MD MD rn Smirch, Shelby, RN RN ss Gilmore, Jennifer jg9 Corrections: (The following items were deleted from the chart) 15:12 14:04 Helen Earl is Primary Nurse. jg9 jg9
--- NOTE | 2021-08-03 15:53 | EDPHYS ---
Physician Documentation [facility] Name: Yeyo Pelayo Age: 80 yrs Sex: Male : 1940 Arrival Date: 08/03/2021 Time: 11:22 Bed 19 Private MD: ED Physician Jean Madera HPI: 08/03 12:48 This 80 yrs old Male presents to ER via Ambulatory with complaints of Nasal rn Congestion. 12:48 This 80 yrs old Male presents to ER via Ambulatory with complaints of Nasal Congestion, rn chest pain. 12:48 The patient or guardian reports chest pain that is located primarily in the substernal rn area. Onset: at an unknown time. The pain does not radiate. Associated signs and symptoms: Pertinent positives: cough, shortness of breath, Pertinent negatives: abdominal pain, headache, lower extremity swelling, vomiting. The chest pain is described as a heaviness. Duration: The patient or guardian reports multiple episodes, that are intermittent. Modifying factors: The symptoms are alleviated by nothing. the symptoms are aggravated by nothing. Severity of pain: At its worst the pain was moderate in the emergency department the pain has improved. The patient has experienced similar episodes in the past. The patient has not recently seen a physician. Patient reports intermittent chest pain, nonradiating associated with shortness of breath and nasal congestion. Denies fever. Patient has been seen for this several times, is fixated on his nasal congestion and feeling like it is going into his body and into his lungs and possibly into his arteries. Admitted last time for chest pain with a negative echo and negative troponins. Patient does have peripheral vascular disease and hypertension. Denies trauma. Denies hemoptysis.. Historical: - Allergies: 11:55 No Known Allergies; ss - PMHx: 11:55 Diabetes - NIDDM; Hypertension; Kidney stones; ss - PSHx: 11:55 Lithotripsy; ss - Immunization history:: Client reports receiving the 2nd dose of the Covid vaccine. - Social history:: Smoking status: Patient denies any tobacco usage or history of. - Family history:: not pertinent. - Hospitalizations: : No recent hospitalization is reported. ROS: 12:48 Constitutional: Negative for fever, chills, and weight loss, Eyes: Negative for injury, rn pain, redness, and discharge, ENT: Positive for nasal congestion Neck: Negative for injury, pain, and swelling, Cardiovascular: Negative for edema Respiratory: Negative for wheezing, and pleuritic chest pain, Abdomen/GI: Negative for abdominal pain, nausea, vomiting, diarrhea, and constipation, Back: Negative for injury and pain, : Negative for injury, bleeding, discharge, and swelling, MS/Extremity: Negative for injury and deformity, Skin: Negative for injury, rash, and discoloration, Neuro: Negative for headache, numbness, tingling, and seizure. Exam: 12:48 Constitutional: This is a well developed, well nourished patient who is awake, alert, rn appears anxious and hyperventilating. Head/Face: Normocephalic, atraumatic. Eyes: Periorbital areas with no swelling, redness, or edema. Cardiovascular: Regular rate and rhythm. Respiratory: Patient hyperventilating with breath-holding spells, when speaks is able to breathe easier Abdomen/GI: Soft, non-tender Skin: Warm, dry MS/ Extremity: Neurovascular intact. Full, normal range of motion. Equal circumference. Neuro: Awake and alert, GCS 15, oriented to person, place, time, and situation. Cranial nerves II-XII grossly intact. Motor strength 5/5 in all extremities. Sensory grossly intact. Vital Signs: 11:52 Weight 79.38 kg; Height 6 ft. 1 in. (185.42 cm); Pain 0/10; ss 11:55 BP 188 / 79; Pulse 71; Resp 16; Temp 97.1(TE); Pulse Ox 100% on R/A; ss 13:45 BP 172 / 71; Pulse 57; Resp 21 S; Pulse Ox 100% on R/A; jg9 14:30 BP 165 / 84; Pulse 57; Resp 24; Pulse Ox 100% on R/A; jg9 15:00 BP 143 / 75; Pulse 61; Resp 20 S; Pulse Ox 97% on R/A; jg9 15:30 BP 171 / 81; Pulse 56; Resp 51; Pulse Ox 96% on R/A; jg9 15:45 BP 164 / 72; Pulse 64; Resp 16 S; Pulse Ox 65% on R/A; jg9 11:52 Body Mass Index 23.09 (79.38 kg, 185.42 cm) MDM: 12:27 Patient medically screened. rn 13:52 ED course: Patient refuses CT scan. States had CT scan before. Understands risks of not rn getting CT scan today.. 15:50 Differential diagnosis: acute myocardial infarction, acute pericarditis, anxiety, rn coronary artery disease chest wall pain, costochondritis, gastritis, gastroesophageal reflux disease (GERD), pleurisy. Data reviewed: vital signs, nurses notes, lab test result(s), EKG, radiologic studies, plain films, and as a result, I will discharge patient. Counseling: I had a detailed discussion with the patient and/or guardian regarding: the historical points, exam findings, and any diagnostic results supporting the discharge/admit diagnosis, lab results, radiology results, the need for outpatient follow up, to return to the emergency department if symptoms worsen or persist or if there are any questions or concerns that arise at home. Response to treatment: the patient's symptoms have markedly improved after treatment, the patient's condition has returned to base line, the patient is now symptom free, and as a result, I will discharge patient. Special discussion: Based on the patient's history, exam, and Dx evaluation, there is no indication for emergent intervention or inpatient Tx. It is understood by the patient/guardian that if the Sx's persist or worsen they need to return immediately for re-evaluation. I discussed with the patient/guardian in detail that at this point there is no indication for admission to the hospital. It is understood, however, that if the symptoms persist or worsen the patient needs to return immediately for re-evaluation. ED course: Symptoms completely resolved after p.o. Valium. Patient still declines CT of the chest. Troponin negative. No ischemia on ECG. Recent echo and admission for chest pain are negative. Will DC home. Recommended psychiatry follow-up given age and chance of adverse effects or side effects or medication interaction. Patient also has a an appointment with ENT for chronic nasal congestion and feeling like inadequate nasal passages. 08/03 12:39 Order name: Basic Metabolic Panel; Complete Time: 15: rn 08/03 12:39 Order name: CBC with Diff rn 08/03 12:39 Order name: LFT's; Complete Time: 15: rn 08/03 12:39 Order name: Magnesium; Complete Time: 15: rn 08/03 12:39 Order name: NT PRO-BNP; Complete Time: 15:01 rn 08/03 12:39 Order name: PT-INR; Complete Time: 14:43 rn 08/03 12:11 Order name: EKG; Complete Time: 12:11 ss 08/03 12:11 Order name: EKG - Nurse/Tech; Complete Time: 12:11 ss 08/03 12:39 Order name: Troponin (emerg Dept Use Only); Complete Time: 15:01 rn 08/03 12:39 Order name: XRAY Chest (1 view); Complete Time: 13:52 rn 08/03 12:39 Order name: Cardiac monitoring; Complete Time: 14:23 rn 08/03 12:39 Order name: Labs collected and sent; Complete Time: 14:23 rn 08/03 12:39 Order name: O2 Per Protocol; Complete Time: 15:59 rn 08/03 12:39 Order name: O2 Sat Monitoring; Complete Time: 14:23 rn Administered Medications: 14:24 CANCELLED (Duplicate Order): Ativan (LORazepam) 0.5 mg IVP once rn 14:28 Drug: Valium (diazepam) 5 mg Route: PO; jg9 15:12 Follow up: Response: No adverse reaction; Anxiety decreased jg9 Disposition Summary: 08/03/21 15:53 Discharge Ordered Location: Home rn Problem: new rn Symptoms: have improved rn Condition: Stable rn Diagnosis - Chest pain, unspecified rn - Generalized anxiety disorder rn - Hyperventilation rn Followup: rn - With: Private Physician - When: As needed - Reason: Recheck today's complaints, Re-evaluation by your physician Discharge Instructions: - Discharge Summary Sheet rn - Panic Attack rn - Nonspecific Chest Pain, Adult rn - Hyperventilation rn - Generalized Anxiety Disorder, Adult rn - Managing Anxiety, Adult rn Forms: - Medication Reconciliation Form rn - Thank You Letter rn - Antibiotic technical intern - Prescription Opioid Use rn Signatures: Dispatcher [employer] EDMS Jean Madera MD MD rn Smirch, Shelby, RN RN Helen Duffy jg9 Corrections: (The following items were deleted from the chart) 13:27 12:41 Angio Aorta For Dissection+CT.RAD.BRZ ordered. EDMS EDMS 14:24 12:41 Ativan (LORazepam) 0.5 mg IVP once ordered. rn rn 15:59 12:39 IV Saline Lock ordered. rn ss
[2021-08-03 16:10] VITALS: TEMP 97.1
[2021-08-03 16:18] VITALS: BP 164/72; O2SAT 65
[2021-08-03 16:45] LABS: Blood Morphology Comment NOT SEEN (NOT SEEN); Platelet Estimate ADEQ; White Blood Cell Scan OK (OK)
--- NOTE | 2021-08-05 08:13 | EKG ---
Test Date: 2021-08-03 Test Time: 12:06:04 Artificial Candy Maker: GUSTAVO MEASUREMENT RESULTS: Intervals: Rate: 64 AK: 220 QRSD: 130 QT: 432 QTc: 445 [place]: P: 84 AK: 220 QRS: 66 T: 53 INTERPRETIVE STATEMENTS: Sinus rhythm with 1st degree AV block Right bundle branch block Abnormal ECG Compared to ECG 07/21/2021 18:06:10 Myocardial infarct finding no longer present Electronically Signed On 08-05-21 08:11:22 [facility] by Alejandro Yap
== END 2021-08-03 16:04 | disposition home or self-care (01) ==
LOC: ER 11:20
DX: R06.4 Hyperventilation (principal); F41.1 Generalized anxiety disorder; I10 Essential (primary) hypertension; Z87.442 Personal history of urinary calculi
CPT/HCPCS: 36415; 71045; 80048; 80076; 83735; 83880; 84484; 85025; 85610; 93005; 99283

== ENCOUNTER 2021-08-06 10:06 | Emergency (ER) | payer OTHER ==
[2021-08-06 11:02] LABS: Absolute Lymphocytes (CBC) 1.1 K/uL (0.7-4.9); Basophils % 0.5 % (0-1.3); Lymphocytes % 13.4 % (15.3-44.8); MPV 7.2 fL (7.6-11.3); RBC Red Blood Cell Count 4.84 M/uL (4.33-5.43)
[2021-08-06 11:04] LABS: Protime INR 0.97
--- NOTE | 2021-08-06 11:14 | RAD REPORT ---
EXAM DESCRIPTION: CT - Head Brain Wo Cont - 08/06/2021 10:57 am CLINICAL HISTORY: Slurred speech COMPARISON: 2019 TECHNIQUE: Computed axial tomography of the head was obtained. IV contrast was not requested. All CT scans are performed using dose optimization technique as appropriate and may include automated exposure control or mA/KV adjustment according to patient size. FINDINGS: An intracranial bleed is not seen . The ventricles are normal in caliber. No extra-axial fluid collection is noted. Fluid within the left maxillary sinus probably sinusitis IMPRESSION: No acute intracranial abnormality is seen. If patient's symptoms persist MRI of the bra in would be recommended. Acute left maxillary sinusitis
[2021-08-06 11:19] LABS: Bicarbonate 26 mmol/L (21-32); Potassium 4.2 mmol/L (3.5-5.1); Sodium Level 138 mmol/L (136-145)
[2021-08-06 11:20] LABS: ALT/SGPT 25 U/L (12-78); AST/SGOT 14 U/L (15-37); Albumin 3.4 g/dL (3.4-5.0); Alkaline Phosphatase 85 U/L (45-117); BUN Blood Urea Nitrogen 20 mg/dL (7-18); Bilirubin Direct 0.1 mg/dL (0-0.2); Bilirubin Total 0.4 mg/dL (0.2-1.0); Glucose Level 240 mg/dL (74-106); Magnesium 2.9 mg/dL (1.8-2.4); NT PRO-BNP 190 pg/mL (<450); Protein, Total 7.9 g/dL (6.4-8.2); Troponin (Emerg Dept Use Only) < 0.02 ng/mL (0.0-0.045)
--- NOTE | 2021-08-06 12:17 | RAD REPORT ---
EXAM DESCRIPTION: RAD - Chest Single View - 08/06/2021 11:33 am CLINICAL HISTORY: SOB COMPARISON: Chest Single View dated 08/03/2021; Chest Single View dated 07/21/2021; Chest Single View dated 07/10/2021; Chest Pa And Lat (2 Views) dated 03/13/2021 FINDINGS: Lines: None. Lungs: No evidence of edema or pneumonia. Pleural: No significant pleural effusions or pneumothorax. Cardiac: The heart size is within normal limits. Bones: No acute fractures. Other: IMPRESSION: No acute cardiopulmonary disease.
--- NOTE | 2021-08-06 12:55 | ER ---
Nurse's Notes [facility] Name: Yeyo Pelayo Age: 80 yrs Sex: Male : 1940 Arrival Date: 08/06/2021 Time: 10:13 Bed 17 Private MD: Diagnosis: Hypertensive heart disease without heart failure;Other speech disturbances Presentation: 08/06 10:15 Chief complaint: EMS states: Patient to ED by EMS from allergy clinic after staff there jg9 reported patient blood pressure was elevated (unknown what reading was at allergy clinic), patient c/o difficulty breathing and having difficulty articulating words, so staff sent him over to be evaluated for possible TIA. Coronavirus screen: Vaccine status: Patient reports receiving the 2nd dose of the covid vaccine. Patient reports receiving the 1st dose of the Covid vaccine. Ebola Screen: Patient negative for fever greater than or equal to 101.5 degrees Fahrenheit, and additional compatible Ebola Virus Disease symptoms Patient denies exposure to infectious person. Patient denies travel to an Ebola-affected area in the 21 days before illness onset. Initial Sepsis Screen: Does the patient meet any 2 criteria? No. Patient's initial sepsis screen is negative. Risk Assessment: Do you want to hurt yourself or someone else? Patient reports no desire to harm self or others. Note Patient made statement at allergy clinic that he feels so bad some times that he just wished he was , he denied any SI/HI when asked. Onset of symptoms is unknown. 10:15 Method Of Arrival: EMS: [facility] 9 10:15 Acuity: KEN 3 jg9 10:28 Initial Sepsis Screen: Does the patient have a suspected source of infection? No. jg9 Patient's initial sepsis screen is negative. Triage Assessment: 10:21 General: Appears in no apparent distress. Behavior is calm, cooperative. Pain: jg9 Complains of pain in head-c/o hedache nos Pain does not radiate. Pain currently is 5 out of 10 on a pain scale. Quality of pain is described as aching, Pain began 1 day ago. EENT: No deficits noted. Neuro: No deficits noted. Neuro: Reports headache not specified dyarthria-patient reports difficulty articulating words. Cardiovascular: No deficits noted. Respiratory: Reports shortness of breath Airway is patent Trachea midline Respiratory effort is even, unlabored, Respiratory pattern is regular, symmetrical, Sputum is. GI: No deficits noted. : No deficits noted. Derm: No deficits noted. Musculoskeletal: No deficits noted. Historical: - Allergies: 10:19 No Known Allergies; jg9 - Home Meds: 10:19 Unable to obtain [Active]; jg9 - PMHx: 10:19 Diabetes - NIDDM; Hypertension; Kidney stones; jg9 - PSHx: 10:27 Lithotripsy; jg9 - Immunization history:: Client reports receiving the 2nd dose of the Covid vaccine, Client reports receiving the 1st dose of the Covid vaccine, Pneumococcal vaccine is up to date, Flu vaccine is up to date. - Social history:: Smoking status: Patient denies any tobacco usage or history of. Screenin:27 Abuse screen: Denies threats or abuse. Denies injuries from another. Nutritional jg9 screening: No deficits noted. Tuberculosis screening: No symptoms or risk factors identified. Fall Risk None identified. Assessment: 12:19 Reassessment: Patient appears in no apparent distress at this time. No changes from jg9 previously documented assessment. Patient and/or family updated on plan of care and expected duration. Pain level reassessed. Vital Signs: 10:09 BP 158 / 62; Pulse 61; Resp 20 S; Pulse Ox 100% on R/A; jg9 10:15 BP 158 / 62; Pulse 64; Resp 17; Temp 98.1(O); Pulse Ox 100% on R/A; Weight 74.39 kg; jg9 Height 6 ft. 1 in. (185.42 cm); 11:25 BP 130 / 73; Pulse 89; Resp 18; Pulse Ox 100% on R/A; abraham 12:08 BP 137 / 69; Pulse 78; Resp 18; Pulse Ox 100% on R/A; abraham 10:15 Body Mass Index 21.64 (74.39 kg, 185.42 cm) jg9 NIH Stroke Scale Scores: 10:40 NIHSS Score: 0 cp ED Course: 10:13 Patient arrived in ED. abraham 10:14 Helen Earl is Primary Nurse. jg9 10:18 Kyree Villatoro PA is PHCP. cp 10:18 Kyree Cox MD is Attending Physician. cp 10:19 Triage completed. jg9 10:26 Arm band placed on right wrist. jg9 10:28 Patient has correct armband on for positive identification. Bed in low position. Call jg9 light in reach. 10:54 Initial lab(s) drawn, by me, sent to lab. Inserted saline lock: 20 gauge in left wrist, ww using aseptic technique. Blood collected. 10:56 CT Head Brain wo Cont In Process Unspecified. EDMS 10:57 Basic Metabolic Panel Sent. abraham 10:57 CBC with Diff Sent. abraham 10:57 LFT's Sent. abraham 10:57 Magnesium Sent. abraham 10:57 NT PRO-BNP Sent. abraham 10:57 PT-INR Sent. abraham 10:57 Troponin (emerg Dept Use Only) Sent. abraham 11:33 XRAY Chest (1 view) In Process Unspecified. EDMS 12:19 PO fluids given. jg9 13:26 IV discontinued, No redness/swelling at site. Pressure dressing applied. abraham Administered Medications: No medications were administered Outcome: 13:27 Patient left the ED. NIH Stroke Scale - NIH Stroke Score Date: 08/06/2021 Time: 10:40 Total Score = 0 1a. Level of Consciousness (LOC) - 0(Alert) 1b. Level of Consciousness (LOC) (Month \T\ Age) - 0(Both) 1c. LOC Commands (Open \T\ Closes Eyes/Stock Sheets Cleaner Inspector) - 0(Both) 2. Best Gaze (Lateral Gaze Paresis) - 0(Normal) 3. Visual Field Loss - 0(No visual loss) 4. Facial Palsy - 0(Normal) 5a. Left Arm: Motor (10-second hold) - 0(No drift) 5b. Right Arm: Motor (10-second hold) - 0(No drift) 6a. Left Leg: Motor (5-second hold - always test supine) - 0(No drift) 6b. Right Leg: Motor (5-second hold - always test supine) - 0(No drift) 7. Limb Ataxia (finger/nose \T\ heel/garcia - test with eyes open) - 0(Absent) 8. Sensory Loss (pinprick arms/legs/face) - 0(Normal) 9. Best Language: Aphasia (description/naming/reading) - 0(No aphasia) 10. Dysarthria (speech clarity - read or repeat words) - 0(Normal) 11. Extinction and Inattention (visual/tactile/auditory/spatial/personal) - 0(No abnormality) Initials: cp Signatures: Dispatcher [employer] EDMS Kyree Villatoro PA PA cp Gilmore, Jennifer jg9 Lilly Malhotra RN RN dasha Au-StagerTabby Corrections: (The following items were deleted from the chart) 12:19 12:18 Reassessment: Patient appears in no apparent distress at this time. jg9 Patient is alert, oriented x 3, equal unlabored respirations, skin warm/dry/pink. Patient reports decreased pain, incentive spirometer education provided jg9
--- NOTE | 2021-08-06 12:55 | EDPHYS ---
Physician Documentation [facility] Name: Yeyo Pelayo Age: 80 yrs Sex: Male : 1940 Arrival Date: 08/06/2021 Time: 10:13 Bed 17 Private MD: ED Physician Kyree Cox HPI: 08/06 10:30 This 80 yrs old Male presents to ER via EMS with complaints of High Blood Pressure. cp 10:30 The patient has elevated blood pressure and discovered this at a physician's office, cp and sent to the emergency department for evaluation. Onset: The symptoms/episode began/occurred today. 10:30 Associated signs and symptoms: Pertinent positives: shortness of breath and difficulty cp speaking, Pertinent negatives: chest pain, headache, weakness, abdominal pain. 10:30 Severity of symptoms: in the emergency department the blood pressure is improved, cp mildly. 10:30 Patient presents to ED after being transported by EMS who reports patient was being cp seen at local allergy clinic and was observed to have elevated blood pressure and episode of slurred difficulty speaking. Patient reports he felt like throat was tight and he was having shortness of breath. Historical: - Allergies: 10:19 No Known Allergies; jg9 - Home Meds: 10:19 Unable to obtain [Active]; jg9 - PMHx: 10:19 Diabetes - NIDDM; Hypertension; Kidney stones; jg9 - PSHx: 10:27 Lithotripsy; jg9 - Immunization history:: Client reports receiving the 2nd dose of the Covid vaccine, Client reports receiving the 1st dose of the Covid vaccine, Pneumococcal vaccine is up to date, Flu vaccine is up to date. - Social history:: Smoking status: Patient denies any tobacco usage or history of. ROS: 10:33 Constitutional: Negative for body aches, chills, fever, poor PO intake. cp 10:33 Eyes: Negative for injury, pain, redness, and discharge. cp 10:33 ENT: Negative for drainage from ear(s), ear pain, sore throat, difficulty swallowing, difficulty handling secretions. 10:33 Cardiovascular: Negative for chest pain, edema, palpitations. 10:33 Respiratory: Negative for cough, shortness of breath, wheezing. 10:33 Abdomen/GI: Negative for abdominal pain, nausea, vomiting, and diarrhea. 10:33 Back: Negative for pain at rest, pain with movement. 10:33 Neuro: Positive for speech changes, Negative for altered mental status, dizziness, weakness. 10:33 All other systems are negative. Exam: 10:36 Constitutional: The patient appears in no acute distress, alert, awake, cp non-diaphoretic, non-toxic, well developed, well nourished. 10:36 Head/Face: Normocephalic, atraumatic. cp 10:36 Eyes: Periorbital structures: appear normal, Pupils: equal, round, and reactive to light and accomodation, Extraocular movements: intact throughout, Conjunctiva: normal, no exudate, no injection, Sclera: no appreciated abnormality, Lids and lashes: appear normal, bilaterally. 10:36 ENT: External ear(s): are unremarkable, Nose: is normal, Mouth: Lips: moist, Oral mucosa: moist, Posterior pharynx: Airway: no evidence of obstruction, patent. 10:36 Neck: ROM/movement: is normal, is supple, without pain, no range of motions limitations. 10:36 Chest/axilla: Inspection: normal, Palpation: is normal, no crepitus, no tenderness. 10:36 Cardiovascular: Rate: normal, Rhythm: regular. 10:36 Respiratory: the patient does not display signs of respiratory distress, Respirations: normal, no use of accessory muscles, no retractions, labored breathing, is not present, Breath sounds: are clear throughout, no decreased breath sounds, no stridor, no wheezing. 10:36 Abdomen/GI: Inspection: abdomen appears normal, Palpation: abdomen is soft and non-tender, in all quadrants. 10:36 Neuro: Orientation: to person, place \T\ time. Mentation: is normal, Cerebellar function: Romberg testing is negative, Motor: moves all fours, strength is normal, Sensation: is normal. 11:15 ECG was reviewed by the Attending Physician. cp Vital Signs: 10:09 BP 158 / 62; Pulse 61; Resp 20 S; Pulse Ox 100% on R/A; jg9 10:15 BP 158 / 62; Pulse 64; Resp 17; Temp 98.1(O); Pulse Ox 100% on R/A; Weight 74.39 kg; jg9 Height 6 ft. 1 in. (185.42 cm); 11:25 BP 130 / 73; Pulse 89; Resp 18; Pulse Ox 100% on R/A; abraham 12:08 BP 137 / 69; Pulse 78; Resp 18; Pulse Ox 100% on R/A; abraham 10:15 Body Mass Index 21.64 (74.39 kg, 185.42 cm) jg9 NIH Stroke Scale Scores: 10:40 NIHSS Score: 0 cp MDM: 10:23 Patient medically screened. cp 12:54 Data reviewed: vital signs, nurses notes, lab test result(s), EKG, radiologic studies, cp CT scan, plain films. 12:54 Test interpretation: by ED physician or midlevel provider: ECG, plain radiologic cp studies. Counseling: I had a detailed discussion with the patient and/or guardian regarding: the historical points, exam findings, and any diagnostic results supporting the discharge/admit diagnosis, lab results, radiology results. ED course: VSS. Discussed continued observation for concern for TIA, but patient requesting discharge to home at this time. Patient reports similar episodes in the past and recent hospitalization. Patient refuses any further testing. 08/06 10:35 Order name: Basic Metabolic Panel; Complete Time: 11:36 cp 08/06 11:48 Interpretation: Normal except: GLUC 240; BUN 20; CRE 1.35; GFR 51. cp 08/06 10:35 Order name: CBC with Diff; Complete Time: 11:36 cp 08/06 11:48 Interpretation: Normal except: MPV 7.2; MIKAEL% 77.5; LYM% 13.4. cp 08/06 10:35 Order name: LFT's; Complete Time: 11:36 08/06 10:35 Order name: Magnesium; Complete Time: 11:36 cp 08/06 10:35 Order name: NT PRO-BNP; Complete Time: 11:36 cp 08/06 10:35 Order name: PT-INR; Complete Time: 11:36 cp 08/06 10:35 Order name: Troponin (emerg Dept Use Only); Complete Time: 11:36 cp 08/06 10:35 Order name: XRAY Chest (1 view); Complete Time: 12:53 08/06 12:53 Interpretation: Report review. 08/06 10:35 Order name: EKG; Complete Time: 10:36 08/06 10:35 Order name: Cardiac monitoring; Complete Time: 10:57 cp 08/06 10:35 Order name: EKG - Nurse/Tech; Complete Time: 11:43 cp 08/06 10:35 Order name: IV Saline Lock; Complete Time: :57 cp 08/06 10:35 Order name: Labs collected and sent; Complete Time: 10:57 cp 08/06 10:36 Order name: CT Head Brain wo Cont; Complete Time: 11:36 cp 08/06 10:35 Order name: O2 Per Protocol; Complete Time: 10:57 cp 08/06 10:35 Order name: O2 Sat Monitoring; Complete Time: 10:57 cp EC:15 Rate is 59 beats/min. Rhythm is regular. NE interval is normal. QRS interval is cp prolonged at 132 msec. QT interval is normal. T waves are Inverted in lead aVR. Interpreted by me. Reviewed by me. Administered Medications: No medications were administered Disposition: 19:00 Co-signature as Attending Physician, Kyree Cox MD I agree with the assessment and juana plan of care. Disposition Summary: 08/06/21 12:54 Left Against Medical Advice Location: Home cp Problem: new cp Symptoms: have improved cp Condition: Stable cp Diagnosis - Hypertensive heart disease without heart failure cp - Other speech disturbances cp Followup: cp - With: Private Physician - When: 1 - 2 days - Reason: Recheck today's complaints Discharge Instructions: - Discharge Summary Sheet cp - Hypertension, Adult cp - How to Take Your Blood Pressure, [id number] cp - Aspirin and Your Heart cp NIH Stroke Scale - NIH Stroke Score Date: 08/06/2021 Time: 10:40 Total Score = 0 1a. Level of Consciousness (LOC) - 0(Alert) 1b. Level of Consciousness (LOC) (Month \T\ Age) - 0(Both) 1c. LOC Commands (Open \T\ Closes Eyes/Small Engine Mechanic) - 0(Both) 2. Best Gaze (Lateral Gaze Paresis) - 0(Normal) 3. Visual Field Loss - 0(No visual loss) 4. Facial Palsy - 0(Normal) 5a. Left Arm: Motor (10-second hold) - 0(No drift) 5b. Right Arm: Motor (10-second hold) - 0(No drift) 6a. Left Leg: Motor (5-second hold - always test supine) - 0(No drift) 6b. Right Leg: Motor (5-second hold - always test supine) - 0(No drift) 7. Limb Ataxia (finger/nose \T\ heel/garcia - test with eyes open) - 0(Absent) 8. Sensory Loss (pinprick arms/legs/face) - 0(Normal) 9. Best Language: Aphasia (description/naming/reading) - 0(No aphasia) 10. Dysarthria (speech clarity - read or repeat words) - 0(Normal) 11. Extinction and Inattention (visual/tactile/auditory/spatial/personal) - 0(No abnormality) Initials: cp Signatures: Dispatcher [employer] EDMS Kyree Cox MD MD cha Page, Corey, PA PA cp Gilmore, Jennifer jg9
[2021-08-06 13:49] VITALS: O2SAT 100
[2021-08-06 13:50] VITALS: TEMP 98.1
[2021-08-06 13:54] VITALS: BP 137/69
== END 2021-08-06 13:27 | disposition left against medical advice (07) ==
LOC: ER 10:06
DX: I11.9 Hypertensive heart disease without heart failure (principal); R47.89 Other speech disturbances; I10 Essential (primary) hypertension; E11.9 Type 2 diabetes mellitus without complications
CPT/HCPCS: 36415; 70450; 71045; 80048; 80076; 83735; 83880; 84484; 85025; 85610; 93005; 99284

== ENCOUNTER 2021-08-06 19:35 | Observation (INO) | payer OTHER ==
[2021-08-06 20:15] LABS: Absolute Lymphocytes (CBC) 1.4 K/uL (0.7-4.9); Hematocrit 42.1 % (39.6-49.0); Lymphocytes % 19.9 % (15.3-44.8); MPV 7.1 fL (7.6-11.3); Protime INR 0.97; RBC Red Blood Cell Count 4.53 M/uL (4.33-5.43)
--- NOTE | 2021-08-06 20:24 | RAD REPORT ---
EXAM DESCRIPTION: RAD - Chest Single View - 08/06/2021 8:16 pm CLINICAL HISTORY: CHEST PAIN COMPARISON: Chest Single View dated 08/06/2021; Chest Single View dated 08/03/2021; Chest Single Vie w dated 07/21/2021; Chest Single View dated 07/10/2021 FINDINGS: Lines: None. Lungs: No evidence of edema or pneumonia. Pleural: No significant pleural effusions or pneumothorax. Cardiac: The heart size is within normal limits. Bones: No acute fractures. Other: IMPRESSION: No acute cardiopulmonary disease.
[2021-08-06 20:52] LABS: Urine Blood Trace-intact (Negative); Urine Glucose Negative (Negative); Urine Protein Negative (Negative); Urine pH 5.5 (5.0-7.0)
[2021-08-06 20:56] LABS: ALT/SGPT 22 U/L (12-78); AST/SGOT 13 U/L (15-37); Albumin 3.4 g/dL (3.4-5.0); Alkaline Phosphatase 81 U/L (45-117); BUN Blood Urea Nitrogen 22 mg/dL (7-18); Bicarbonate 27 mmol/L (21-32); Bilirubin Direct < 0.1 mg/dL (0-0.2); Bilirubin Total 0.3 mg/dL (0.2-1.0); Glucose Level 179 mg/dL (74-106); Magnesium 2.9 mg/dL (1.8-2.4); NT PRO-BNP 189 pg/mL (<450); Potassium 4.3 mmol/L (3.5-5.1); Protein, Total 7.7 g/dL (6.4-8.2); Sodium Level 135 mmol/L (136-145); Troponin (Emerg Dept Use Only) < 0.02 ng/mL (0.0-0.045)
--- NOTE | 2021-08-06 20:58 | RAD REPORT ---
EXAM DESCRIPTION: CT - Head Brain Wo Cont - 08/06/2021 8:29 pm CLINICAL HISTORY: Weakness;Slurred speech COMPARISON: Head Brain Wo Cont dated 08/06/2021; Head Brain Wo Cont dated 09/26/2018 TECHNIQUE: All CT scans are performed using dose optimization technique as appropriate and may inclu de automated exposure control or mA/KV adjustment according to patient size. FINDINGS: No intracranial hemorrhage, hydrocephalus or extra-axial fluid collection.No areas of brai n edema or evidence of midline shift. Circumferential thickening in left maxillary sinus. The calvarium is intact. IMPRESSION: No acute intracranial abnormality.
--- NOTE | 2021-08-06 21:37 | EDPHYS ---
Physician Documentation [facility] Name: Yeyo Pelayo Age: 80 yrs Sex: Male : 1940 Arrival Date: 08/06/2021 Time: 19:37 Bed 5 Private MD: ED Physician Trevon Casanova HPI: 08/06 20:08 This 80 yrs old Male presents to ER via EMS with complaints of Chest pain. Weakness. mh7 Shortness of breath. Speech difficulty.. 20:08 The patient or guardian reports chest pain that is located primarily in the substernal mh7 area. Onset: this morning, today. The pain does not radiate. Associated signs and symptoms: Pertinent positives: shortness of breath, Weakness, difficulty with speech, Pertinent negatives: abdominal pain, cough, diaphoresis, dizziness, headache, lower extremity pain, lower extremity swelling, lightheadedness, nausea, near syncope, palpitations, recent travel, syncope, vomiting. The chest pain is described as a pressure. Duration: The patient or guardian reports multiple episodes, that are intermittent, that wax and wane, with no pattern. Modifying factors: The symptoms are alleviated by nothing. the symptoms are aggravated by nothing. Severity of pain: At its worst the pain was moderate today, in the emergency department the pain is unchanged. EMS care prior to arrival includes: aspirin. The patient has been recently seen at the [facility] Emergency Department, today, Left AMA. Patient complains of chest pain, shortness of breath, speech difficulty, and generalized weakness that started this morning. He was seen here this morning and left AGAINST MEDICAL ADVICE. Was returned this evening by EMS after complaining of same symptoms.. Historical: - Allergies: 19:56 No Known Allergies; sm5 - Home Meds: 20:34 amlodipine 5 mg tab 2 tabs [Active]; glimepiride 4 mg Oral tab 1 tab [Active]; tw5 - PMHx: 19:56 Diabetes - NIDDM; Hypertension; Kidney stones; sm5 - PSHx: 19:56 Lithotripsy; sm5 - Immunization history:: Client reports receiving the 2nd dose of the Covid vaccine. - Social history:: Smoking status: Patient denies any tobacco usage or history of. ROS: 20:08 Constitutional: Negative for fever, chills, and weight loss, Eyes: Negative for injury, mh7 pain, redness, and discharge, ENT: Negative for injury, pain, and discharge, Neck: Negative for injury, pain, and swelling, Abdomen/GI: Negative for abdominal pain, nausea, vomiting, diarrhea, and constipation, Back: Negative for injury and pain, : Negative for injury, bleeding, discharge, and swelling, MS/Extremity: Negative for injury and deformity, Skin: Negative for injury, rash, and discoloration, Psych: Negative for depression, anxiety, suicide ideation, homicidal ideation, and hallucinations, Allergy/Immunology: Negative for hives, rash, and allergies, Endocrine: Negative for neck swelling, polydipsia, polyuria, polyphagia, and marked weight changes, Hematologic/Lymphatic: Negative for swollen nodes, abnormal bleeding, and unusual bruising. Exam: 20:08 Head/Face: Normocephalic, atraumatic. Eyes: Pupils equal round and reactive to light, mh7 extra-ocular motions intact. Lids and lashes normal. Conjunctiva and sclera are non-icteric and not injected. Cornea within normal limits. Periorbital areas with no swelling, redness, or edema. ENT: Nares patent. No nasal discharge, no septal abnormalities noted. Tympanic membranes are normal and external auditory canals are clear. Oropharynx with no redness, swelling, or masses, exudates, or evidence of obstruction, uvula midline. Mucous membranes moist. Neck: Trachea midline, no thyromegaly or masses palpated, and no cervical lymphadenopathy. Supple, full range of motion without nuchal rigidity, or vertebral point tenderness. No Meningismus. Chest/axilla: Normal chest wall appearance and motion. Nontender with no deformity. No lesions are appreciated. Cardiovascular: Regular rate and rhythm with a normal S1 and S2. No gallops, murmurs, or rubs. Normal PMI, no JVD. No pulse deficits. Respiratory: Lungs have equal breath sounds bilaterally, clear to auscultation and percussion. No rales, rhonchi or wheezes noted. No increased work of breathing, no retractions or nasal flaring. Abdomen/GI: Soft, non-tender, with normal bowel sounds. No distension or tympany. No guarding or rebound. No evidence of tenderness throughout. Back: No spinal tenderness. No costovertebral tenderness. Full range of motion. Skin: Warm, dry with normal turgor. Normal color with no rashes, no lesions, and no evidence of cellulitis. MS/ Extremity: Pulses equal, no cyanosis. Neurovascular intact. Full, normal range of motion. 20:08 Psych: Awake, alert, with orientation to person, place and time. Behavior, mood, and affect are within normal limits. 20:08 Constitutional: The patient appears in no acute distress, alert, awake, uncomfortable. 20:08 Neuro: Orientation: is normal, Mentation: is normal, Slow speech, Memory: is normal, Cranial nerves: grossly normal, Cerebellar function: is grossly normal, Motor: is normal, Sensation: is normal, Gait: not tested. Deep tendon reflexes are normal, Babinski testing is normal, seizure activity, is not displayed by the patient, Abnormal movements: there are no abnormal movements. Vital Signs: 19:52 BP 152 / 129; Pulse 88; Resp 22; Temp 98.5(O); Pulse Ox 93% on R/A; Weight 74.39 kg; 5 Height 6 ft. 1 in. (185.42 cm); 20:26 BP 164 / 83; Pulse 82; Resp 18; Pulse Ox 100% on 2 lpm NC; tw5 21:04 BP 177 / 70; Pulse 78; Resp 18; Pulse Ox 100% on R/A; bk 21:11 BP 136 / 66; Pulse 54; Resp 18; Pulse Ox 99% on R/A; bk 22:24 BP 125 / 91; Pulse 56; Resp 36; Pulse Ox 99% on R/A; bk 22:24 BP 158 / 72; Pulse 56; Resp 20; Pulse Ox 99% on R/A; bk 22:27 BP 158 / 72; Pulse 54; Resp 20; Pulse Ox 100% on R/A; bk 23:06 BP 118 / 65; Pulse 54; Resp 18; Pulse Ox 97% on R/A; bk 19:52 Body Mass Index 21.64 (74.39 kg, 185.42 cm) [facility] MDM: 21:33 Differential diagnosis: abnormal EKG, acute myocardial infarction, acute pericarditis, mh7 anxiety, coronary artery disease chest wall pain, congestive heart failure costochondritis, esophagitis, gastritis, gastroesophageal reflux disease (GERD), pericarditis, pneumonia, pneumothorax. HEART Score: History: Moderately Suspicious (1), ECG: Non specific repolarization disturbance / LBTB / PM (1), Age: > or = 65 years (2), Risk Factors: 1 or 2 risk factors (1), [Hypertension] [DM] Troponin: < or = 1 x Normal Limit (0), Total Score = 5. The patient was not given aspirin in the Emergency Department. Administered by EMS. Data reviewed: vital signs, nurses notes, EMS record, old medical records, lab test result(s), cardiac enzymes, CBC, electrolytes, EKG, radiologic studies, CT scan, plain films. Data interpreted: Pulse oximetry: on room air is 99 %. Interpretation: normal. Counseling: I had a detailed discussion with the patient and/or guardian regarding: the historical points, exam findings, and any diagnostic results supporting the discharge/admit diagnosis, the presence of at least one elevated blood pressure reading (>120/80) during this emergency department visit, lab results, radiology results, the need for further work-up and treatment in the hospital. 21:36 Patient medically screened. [facility] 08/06 19:50 Order name: Basic Metabolic Panel [facility] 08/06 19:50 Order name: CBC with Diff [facility] 08/06 19:50 Order name: LFT's [facility] 08/06 19:50 Order name: Magnesium [facility] 08/06 19:50 Order name: NT PRO-BNP [facility] 08/06 19:50 Order name: PT-INR; Complete Time: 20:42 [facility] 08/06 19:50 Order name: Troponin (emerg Dept Use Only); Complete Time: 21:12 [facility] 08/06 19:50 Order name: Basic Metabolic Panel; Complete Time: 21:12 [facility] 08/06 19:50 Order name: CBC with Automated Diff; Complete Time: 20:42 [facility] 08/06 19:50 Order name: Liver (Hepatic) Function; Complete Time: 21:12 [facility] 08/06 19:50 Order name: Magnesium; Complete Time: 21:12 [facility] 08/06 19:50 Order name: NT PRO-BNP; Complete Time: 21:12 [facility] 08/06 20:52 Order name: Urine Dipstick-Ancillary; Complete Time: 21:12 [facility] 08/06 21:57 Order name: COVID-19 SARS RT PCR (Document "Date of Onset" if Symptomatic) mw2 08/06 19:50 Order name: XRAY Chest (1 view); Complete Time: 20:42 [facility] 08/06 19:50 Order name: EKG; Complete Time: 19:51 [facility] 08/06 19:50 Order name: Cardiac monitoring; Complete Time: 20:07 [facility] 08/06 19:50 Order name: EKG - Nurse/Tech; Complete Time: 20:07 [facility] 08/06 19:50 Order name: IV Saline Lock; Complete Time: 20:07 [facility] 08/06 19:50 Order name: Labs collected and sent; Complete Time: 20:07 [facility] 08/06 19:50 Order name: O2 Per Protocol; Complete Time: 20:07 [facility] 08/06 19:50 Order name: O2 Sat Monitoring; Complete Time: 20:07 [facility] 08/06 19:50 Order name: CT Head Brain wo Cont; Complete Time: 21:12 [facility] 08/06 19:50 Order name: Urine Dipstick-Ancillary (obtain specimen); Complete Time: 20:54 [facility] Administered Medications: 22:27 Drug: Ativan (LORazepam) 0.5 mg Route: IVP; Site: right antecubital; bk 22:27 Follow up: BP 158 / 72; Pulse 54 bpm; Resp 20 bpm; Pulse Ox 100% RA bk 22:28 Follow up: Response: No adverse reaction; Anxiety decreased bk 23:07 Follow up: Response: No adverse reaction; Anxiety decreased bk Disposition Summary: 08/06/21 21:36 Hospitalization Ordered Hospitalization Status: Inpatient Admission [facility] Provider: Jose Madera Alphonse Location: Telemetry/MedSurg (Inpatient) [facility] Condition: Stable [facility] Problem: new [facility] Symptoms: have improved [facility] Bed/Room Type: Standard [facility] Room Assignment: 208(08/06/21 23:38) Diagnosis - Chest pain on breathing [facility] - Transient cerebral ischemic attack, unspecified [facility] Forms: - Medication Reconciliation Form [facility] - SBAR form [facility] Signatures: Dispatcher [employer] EDMS Yolanda Menezes RN RN mw Sid Veloz, PLANT ACCOUNTANT-C PLANT ACCOUNTANT-Cla1 Trevon Casanova MD MD 7 Chitra Malhotra 5 Sharon Calderon RN RN 5 O'Roth, Sharona, RN RN bk Corrections: (The following items were deleted from the chart) 23:38 21:36 mh7
--- NOTE | 2021-08-06 21:37 | ER ---
Nurse's Notes [facility] Name: Yeyo Pelayo Age: 80 yrs Sex: Male : 1940 Arrival Date: 08/06/2021 Time: 19:37 Bed 5 Private MD: Diagnosis: Chest pain on breathing;Transient cerebral ischemic attack, unspecified Presentation: 08/06 19:52 Chief complaint: EMS states: pt seen here earlier today for high blood pressure and sm5 difficulty speaking, left ama. pt still having difficulty speaking, weakness, and shortness of breath. Coronavirus screen: Client denies travel out of the [place] in the last 14 days. shortness of breath. Ebola Screen: No symptoms or risks identified at this time. Initial Sepsis Screen: Does the patient meet any 2 criteria? No. Patient's initial sepsis screen is negative. Does the patient have a suspected source of infection? No. Patient's initial sepsis screen is negative. Risk Assessment: Do you want to hurt yourself or someone else? Patient reports no desire to harm self or others. Onset of symptoms was August 06, 2021. 19:52 Method Of Arrival: EMS: [facility] 19:52 Acuity: KEN 3 sm5 Historical: - Allergies: 19:56 No Known Allergies; sm5 - Home Meds: 20:34 amlodipine 5 mg tab 2 tabs [Active]; glimepiride 4 mg Oral tab 1 tab [Active]; tw5 - PMHx: 19:56 Diabetes - NIDDM; Hypertension; Kidney stones; sm5 - PSHx: 19:56 Lithotripsy; sm5 - Immunization history:: Client reports receiving the 2nd dose of the Covid vaccine. - Social history:: Smoking status: Patient denies any tobacco usage or history of. Screenin:57 Abuse screen: Denies threats or abuse. Denies injuries from another. Nutritional sm5 screening: No deficits noted. Tuberculosis screening: No symptoms or risk factors identified. Fall Risk No fall in past 12 months (0 pts). No secondary diagnosis (0 pts). IV access (20 points). Ambulatory Aid- None/Bed Rest/Nurse Assist (0 pts). Gait- Normal/Bed Rest/Wheelchair (0 pts) Mental Status- Oriented to own ability (0 pts). Total Perry Fall Scale indicates No Risk (0-24 pts). Assessment: 20:23 General: Appears in no apparent distress. well groomed. Pain: Denies pain. Neuro: No tw5 deficits noted. Cardiovascular: Rhythm is BBB per EKG pt in no distress.On monitor. 20:25 Respiratory: No deficits noted. GI: No deficits noted. No signs and/or symptoms were tw5 reported involving the gastrointestinal system. : No deficits noted. No signs and/or symptoms were reported regarding the genitourinary system. EENT: No deficits noted. No signs and/or symptoms were reported regarding the EENT system. Derm: No deficits noted. No signs and/or symptoms reported regarding the dermatologic system. Musculoskeletal: No deficits noted. No signs and/or symptoms reported regarding the musculoskeletal system. Injury Description: Denies any injury. 20:34 General: Much of the pt's hx was obtained from old records, as the pt has visited the [facility] ED, numerous times and has left AMA, numerous times, as well. Pt appears to be in NAD and was just returned from [place]. . 20:55 General: A member of the pt's family called, Yony Madsen called. His number is [facility] [phone] or [phone]. He asked us to call, should the pt be dc'd. . 21:11 General: The pt was informed about his episcopal member calling. I encouraged him to bk remain in the hospital to resolve his concerns.. 22:05 General: The pt had an episode where he began making odd noises, not speaking, bk chattering, etc. He remained on the monitor and the VS remain consistent. He was coached to focus on his breathing and quickly began speaking to me and calmed down, speaking clearly and saying he had gotten Ativan before and it helped.. 22:27 General: Behavior is calm, Per the pt's report,"This pandemic has really started bk weighing on me...you always got to be on guard...you might get it and .." The pt is much more relaxed and articulating well. He acknowledged understanding of focusing on his breathing and reports it helps. . Vital Signs: 19:52 BP 152 / 129; Pulse 88; Resp 22; Temp 98.5(O); Pulse Ox 93% on R/A; Weight 74.39 kg; sm5 Height 6 ft. 1 in. (185.42 cm); 20:26 BP 164 / 83; Pulse 82; Resp 18; Pulse Ox 100% on 2 lpm NC; tw5 21:04 BP 177 / 70; Pulse 78; Resp 18; Pulse Ox 100% on R/A; bk 21:11 BP 136 / 66; Pulse 54; Resp 18; Pulse Ox 99% on R/A; bk 22:24 BP 125 / 91; Pulse 56; Resp 36; Pulse Ox 99% on R/A; bk 22:24 BP 158 / 72; Pulse 56; Resp 20; Pulse Ox 99% on R/A; bk 22:27 BP 158 / 72; Pulse 54; Resp 20; Pulse Ox 100% on R/A; bk 23:06 BP 118 / 65; Pulse 54; Resp 18; Pulse Ox 97% on R/A; bk 19:52 Body Mass Index 21.64 (74.39 kg, 185.42 cm) 5 Vitals: 20:26 Cardiac Rhythm Assessment Other EKG done at 1940,on pt's arrival. 1st degree BBB, hx of tw5 same?. ED Course: 19:37 Patient arrived in ED. mw2 19:42 Trevon Casanova MD is Attending Physician. mh7 19:52 Sharon Calderon, CACHORRO is Primary Nurse. 5 19:56 Triage completed. 5 19:57 Arm band placed on right wrist. sm5 19:57 Patient has correct armband on for positive identification. Placed in gown. Bed in low sm5 position. Call light in reach. Side rails up X2. 19:58 Magnesium Sent. bk 19:58 CBC with Automated Diff Sent. bk 19:58 Liver (Hepatic) Function Sent. bk 19:58 Basic Metabolic Panel Sent. bk 19:58 Basic Metabolic Panel Sent. bk 19:58 CBC with Diff Sent. bk 19:58 LFT's Sent. bk 19:58 Magnesium Sent. bk 19:59 Troponin (emerg Dept Use Only) Sent. bk 19:59 PT-INR Sent. bk 19:59 NT PRO-BNP Sent. bk 19:59 NT PRO-BNP Sent. bk 20:16 XRAY Chest (1 view) In Process Unspecified. EDMS 20:29 CT Head Brain wo Cont In Process Unspecified. EDMS 20:44 family friend Yony Madsen cell [phone] home [phone]. mw2 20:45 No apparent distress. Pt ambulated with a steady gait, independently, to the restroom tw5 to provide urine specimen. 20:55 Pulse ox on. NIBP on. tw5 21:10 telemetry monitor on. Pulse ox on. NIBP on. Door closed. Lights dimmed. bk 21:35 Jose Madera MD is Hospitalizing Provider. [facility] 22:27 COVID-19 SARS RT PCR (Document "Date of Onset" if Symptomatic) Sent. bk 23:07 Appears to be sleeping. bk Administered Medications: 22:27 Drug: Ativan (LORazepam) 0.5 mg Route: IVP; Site: right antecubital; bk 22:27 Follow up: BP 158 / 72; Pulse 54 bpm; Resp 20 bpm; Pulse Ox 100% RA bk 22:28 Follow up: Response: No adverse reaction; Anxiety decreased bk 23:07 Follow up: Response: No adverse reaction; Anxiety decreased bk Outcome: 21:36 Decision to Hospitalize by Provider. [facility] 23:48 Admitted to Med/surg accompanied by nurse, via wheelchair, Report called to RN for bk 208. 23:50 Patient left the ED. bk Signatures: Dispatcher [employer] [facility] Lois Mendoza mw2 Trevon Casanova MD MD 7 Chitra Malhotra tw5 Sharon Calderon RN RN 5 Sharona Michel RN RN bk
--- NOTE | 2021-08-06 22:06 | P.HP ---
Certification for Inpatient Patient admitted to: Observation With expected LOS: <2 Midnights Patient will require the following post-hospital care: None Practitioner: I am a practitioner with admitting privileges, knowledge of patient current condition, hospital course, and medical plan of care. Services: Services provided to patient in accordance with Admission requirements found in Title 42 Section 412.3 of the Code of Federal Regulations Patient History Date of Service: 08/06/21 Primary Care Provider: Dr. Munroe Reason for admission: Dysphasia History of Present Illness: 80-year-old male with history of hypertension, diabetes metas type II presented to the emergency department earlier today for some difficulty with his speech. Patient reports that he was at an allergy clinic when he was having trouble forming his words and he was brought to the emergency department for evaluation. At that time patient was evaluated his CT scan was negative and it was recommended that he stay in the hospital for further evaluation and possibly an MRI. Patient left AMA at that time. Patient returned to the hospital this ev ening for similar complaints, again reporting that his speech was abnormal. Patient was again evaluated labs and CT repeated all without significant change, patient able to speak in full clear sentences but does report that he has occasional difficulties forming his words. Emergency department provider wishes to admit under observation for further evaluation and management Allergies No Known Drug Allergies Allergy (Verified 08/18/16 02:20) Unknown Home Medications: Glimepiride 4 mg PO BID 07/21/21 Aspirin [Aspirin EC 81 MG] 81 mg PO DAILY #30 tablet. 07/22/21 Atorvastatin Calcium [Lipitor] 40 mg PO BEDTIME #30 tab 07/22/21 Cetirizine HCl [Zyrtec] 10 mg PO DAILY #30 capsule 07/22/21 Clopidogrel Bisulfate [Plavix] 75 mg PO DAILY #30 tablet 07/22/21 Fluticasone [Flonase 50mcg Nasal [place]] 2 sprays NS BID #1 btl 07/22/21 Metoprolol Tartrate [Lopressor*] 25 mg PO BID 6AM 6PM #60 tab 07/22/21 Nitroglycerin [Nitrostat*] 0.4 mg SL UD PRN #30 tab 07/22/21 - Past Medical/Surgical History Diabetic: Yes -: Hypertension -: Type 2 diabetes -: Nephrolithiasis -: CKD 3 -: urethral stent placement -: cystoscopy -: hernia repair Psychosocial/ Personal History: Retired, lives at home with his - Family History Mother Notes: alzheimers Father -: Cancer Notes: colon - Social History Smoking Status: Never smoker Alcohol use: No CD- Drugs: No Caffeine use: No Place of Residence: Home Review of Systems 10-point ROS is otherwise unremarkable Neurological: Change in Speech, As per HPI Physical Examination - Physical Exam General: Alert, In no apparent distress, Oriented x3 HEENT: Atraumatic, PERRLA, Mucous membr. moist/pink, EOMI, Sclerae nonicteric Neck: Supple, 2+ carotid pulse no bruit, No LAD, Without JVD or thyroid abnormality Respiratory: Clear to auscultation bilaterally, Normal air movement Cardiovascular: Regular rate/rhythm, Normal S1 S2 Gastrointestinal: Normal bowel sounds, No tenderness Musculoskeletal: No tenderness Integumentary: No rashes Neurological: Normal strength at 5/5 x4 extr, Normal tone, Sensation intact, Cranial nerves 3-12 intact, Normal affect, Abnormal speech (Patient speech is ra pid, somewhat pressured. Patient appears very anxious does occasionally repeat words.) - Studies Laboratory Data (last 24 hrs) 08/06/21 20:00: PT 11.2, INR 0.97 08/06/21 20:00: WBC 7.20, Hgb 14.2, Hct 42.1, Plt Count 272 08/06/21 20:00: Sodium 135 L, Potassium 4.3, BUN 22 H, Creatinine 1.39 H, Glucose 179 H, Magnesium 2.9 H, Total Bilirubin 0.3, AST 13 L, ALT 22, Alkaline Phosphatase 81 Assessment and Plan - Plan Assessment: Dysphasia Diabetes mellitus type 2 [id number] Hypertension CKD 3 Anxiety Plan: Dysphasia: CT head negative today x2. Patient appears to be neurologically intact although he does occasionally repeat some words while speaking. Patient appears very anxious speech is pressured and rapid. We also provide with daily aspirin, statin, folic acid. Neurology consulted, MRI stroke protocol ordered. No other focal neurological deficits noted. Patient will follow commands and move all extremities. Diabetes mellitus type 2 [id number]: [facility] Accu-Chek, sliding scale insulin, A1c with morning labs Hypertension: Normotensive at this time, obtain and continue medications as appropriate CKD 3: Similar baseline, monitor with lab. Anxiety: Provide medication as needed. Patient received one dose of IV Ativan in the emergency department DVT PPX: Heparin Code status: Full code Discharge Plan: Home Plan to discharge in: 24 Hours - Advance Directives Does patient have a Living Will: No Does patient have a Durable POA for Healthcare: No - Code Status/Comfort Care Code Status Assessed: Yes (Full code) Critical Care: No Time Spent Managing Pts Care (In Minutes): 55
[2021-08-06] MEDS ORDERED: LORazepam 2 MG/ML VIAL ONE (22:15)
[2021-08-07 01:12] VITALS: BMI 21.6
[2021-08-07] MEDS ORDERED: ONDANSETRON 4 MG/2 ML VIAL IV PRN (01:12)
[2021-08-07] MEDS ORDERED: ACETAMINOPHEN 500 MG TAB PO PRN (01:12)
[2021-08-07 04:11] LABS: Absolute Lymphocytes (CBC) 1.4 K/uL (0.7-4.9); Lymphocytes % 23.4 % (15.3-44.8); MPV 7.1 fL (7.6-11.3); RBC Red Blood Cell Count 4.18 M/uL (4.33-5.43)
[2021-08-07 04:38] LABS: Albumin 2.9 g/dL (3.4-5.0); Bilirubin Total 0.3 mg/dL (0.2-1.0); Potassium 3.7 mmol/L (3.5-5.1); Protein, Total 6.6 g/dL (6.4-8.2); Thyroid Stimulating Hormone 0.377 uIU/mL (0.360-3.740)
[2021-08-07 05:50] LABS: Urine Appearance CLEAR (Clear); Urine Bilirubin NEGATIVE (Negative); Urine Blood NEGATIVE (Negative); Urine Color YELLOW (Yellow); Urine Glucose NEGATIVE (Negative); Urine Protein NEGATIVE (Negative); Urine Urobilinogen 0.2 mg/dL (0.2-1.0); Urine pH 5.5 (5.0-7.0)
[2021-08-07 05:52] LABS: Urine Microscopic Reflex NO UMIC
[2021-08-07] MEDS ORDERED: FOLIC ACID 1 MG TABLET PO SCH (09:00)
[2021-08-07] MEDS ORDERED: PNEUMOCOCCAL VACCINE 0.5 ML IMVAC ONE (09:00)
[2021-08-07] MEDS ORDERED: ASPIRIN EC 81 MG TAB PO SCH (09:00)
[2021-08-07] MEDS ORDERED: HEPARIN 5000 UNIT/ML 1 ML VIAL SQ SCH (09:00)
[2021-08-07 09:29] VITALS: O2SAT 98
--- NOTE | 2021-08-07 11:25 | RAD REPORT ---
EXAM DESCRIPTION: MRI - Brain W/Wo Cont - 08/07/2021 10:24 am CLINICAL HISTORY: dysphasia Headache, drowsiness COMPARISON: MRA Head Wo Cont dated 08/07/2021 TECHNIQUE: Multi-sequence, multiplanar MR imaging of the brain was performed with contrast. FINDINGS: No intracranial hemorrhage, hydrocephalus, or extra-axial fluid collection. No edema or sh ift of midline structures. No intracranial mass. DWI is negative for acute CVA. The midline structures are normally formed. Moderate fluid is seen in the left maxillary antrum. Post-contrast images show no abnormal enhancement to suggest tumor or infection. IMPRESSION: Negative for acute CVA or other acute intracranial abnormality. No pathologic post-contrast enhancement suspected.
--- NOTE | 2021-08-07 11:29 | RAD REPORT ---
EXAM DESCRIPTION: MRI - MRA Head Wo Cont - 08/07/2021 10:24 am CLINICAL HISTORY: dysphasia CVA COMPARISON: Head Brain Wo Cont dated 08/06/2021 FINDINGS: 3D noncontrast [id number] MR angiography of the [place] was performed. No aneurysm, flow-limiting stenosis or vascular malformation is seen. Forward flow seen in each verte bral arteries. The visualized dural venous sinuses appear patent. IMPRESSION: No significant flow abnormality of the [place] is identified.
--- NOTE | 2021-08-07 11:43 | RAD REPORT ---
EXAM DESCRIPTION: MRI - MRA Neck W/Wo Cont - 08/07/2021 10:26 am CLINICAL HISTORY: dysphasia COMPARISON: No comparisons FINDINGS: Contrast enhance 2D [id number] MR angiography of the neck vessels was performed. Left aortic arch is noted. Normal great vessel branching pattern is seen. There is evidence of a significant stenosis involving the post-bulbar right internal carotid artery e stimated at 90% based on NASCET criteria. There is lxbj-uy-[id number] left-sided stenosis of the carotid bulb estimated at 70% based on NASCET cr iteria. Antegrade flow is seen in both vertebral arteries, greater on the left. IMPRESSION: Bilateral carotid stenosis is present, more significant on the left as detailed.
--- NOTE | 2021-08-07 13:09 | P.DS ---
Admission Date: 08/06/21 Discharge Date: 08/07/21 Primary Care Provider: Dr. Munroe Disposition: ROUTINE DISCHARGE Discharge Condition: GOOD Reason for Admission: Panic / Anxiety, Speech difficulty Procedures: CXR (08/06): IMPRESSION: No acute cardiopulmonary disease. CT Head (08/06): FINDINGS: No intracranial hemorrhage, hydrocephalus or extra-axial fluid collection.No areas of brain edema or evidence of midline shift. Circumferential thickening in left maxillary sinus. The calvarium is intact. IMPRESSION: No acute intracranial abnormality. MRI Brain (08/07): FINDINGS: No intracranial hemorrhage, hydrocephalus, or extra-axial fluid collection. No edema or shift of midline structures. No intracranial mass. DWI is negative for acute CVA. The midline structures are normally formed. Moderate fluid is seen in the left maxillary antrum. Post-contrast images show no abnormal enhancement to suggest tumor or infection. IMPRESSION: Negative for acute CVA or other acute intracranial abnormality. No pathologic post-contrast enhancement suspected. MRA Brain (08/07): FINDINGS: 3D noncontrast [id number] MR angiography of the [place] was performed. No aneurysm, flow-limiting stenosis or vascular malformation is seen. Forward flow seen in each vertebral arteries. The visualized dural venous sinuses appear patent. IMPRESSION: No significant flow abnormality of the [place] is identified. MRA Neck (08/07): FINDINGS: Contrast enhance 2D [id number] MR angiography of the neck vessels was performed. Left aortic arch is noted. Normal great vessel branching pattern is seen. There is evidence of a significant stenosis involving the post-bulbar right internal carotid artery estimated at 90% based on NASCET criteria. There is gyjr-bv-[id number] left-sided stenosis of the carotid bulb estimated at 70% based on NASCET criteria. Antegrade flow is seen in both vertebral arteries, greater on the left. IMPRESSION: Bilateral carotid stenosis is present, more significant on the left as detailed. Problem list Possible speech difficulty B/l carotid stenosis Diabetes mellitus type 2 [id number] Hypertension CKD-3 Anxiety Seasonal Allergies Brief History of Present Illness: 80-year-old male with history of hypertension, diabetes metas type II presented to the emergency department earlier today for some difficulty with his speech. Patient reports that he was at an allergy clinic when he was having trouble forming his words and he was brought to the emergency department for evaluation. At that time patient was evaluated his CT scan was negative and it was recommended that he stay in the hospital for further evaluation and possibly an MRI. Patient left AMA at that time. Patient returned to the hospital this evening for similar complaints, again reporting that his speech was abnormal. Patient was again evaluated labs and CT repeated all without significant change, patient able to speak in full clear sentences but does report that he has occasional difficulties forming his words. Emergency department provider wishes to admit under observation for further evaluation and management Hospital Course: Patient did not have any recurrence of his symptoms. CT head was negative, MRI brain was negative for any acute pathology. MRA of the neck noted bilateral carotid artery stenosis. Patient further explained that his "episodes" where he was having difficulty with his speech was all secondary to anxiety/panic from dealing with his ongoing seasonal allergies/nasal congestion. Reports approximately 4 weeks of rhinorrhea, nasal congestion, and increased anxiety/panic. Patient was advised to follow-up with cardiovascular surgery as soon as possible next few weeks to schedule an angiogram and possible surgery to correct his stenosis. This was explained to the patient, he was told that this would increase his risk for stroke. He expressed understanding and agreement with the plan. No changes to his home medications. He is to continue aspirin, Plavix, and statin. Refills were sent to his pharmacy per his request. He states he will follow-up with his primary care doctor in the next 1-2 weeks. Vital Signs/Physical Exam: Temp Pulse Resp BP Pulse Ox 98.5 F 54 18 118/65 08/06/21 19:52 08/06/21 23:06 08/06/21 23:06 08/06/21 23:06 General: Alert, In no apparent distress, Oriented x3 HEENT: Mucous membr. moist/pink, Sclerae nonicteric Neck: No LAD Respiratory: Clear to auscultation bilaterally, Normal air movement Cardiovascular: No edema, Regular rate/rhythm Gastrointestinal: Soft and benign, Non-distended, No tenderness Musculoskeletal: No erythema, No tenderness Integumentary: No rashes Neurological: Normal speech, Normal strength at 5/5 x4 extr, Sensation intact, Cranial nerves 3-12 intact, Normal affect Laboratory Data at Discharge: WBC 6.10 K/uL (4.3-10.9) D 08/07/21 03:53 Hgb 13.0 g/dL (13.6-17.9) L 12/22/21 03:53 Hct 39.0 % (39.6-49.0) L 08/07/21 03:53 Plt Count 242 K/uL (152-406) 08/07/21 03:53 PT 11.2 SECONDS (9.5-12.5) 08/06/21 20:00 INR 0.97 08/06/21 20:00 Sodium 138 mmol/L (136-145) 08/07/21 03:53 Potassium 3.7 mmol/L (3.5-5.1) 08/07/21 03:53 BUN 20 mg/dL (7-18) H 08/07/21 03:53 Creatinine 1.33 mg/dL (0.55-1.3) H 08/07/21 03:53 Glucose 221 mg/dL (74-106) H 08/07/21 03:53 Magnesium 2.9 mg/dL (1.8-2.4) H 08/06/21 20:00 Total Bilirubin 0.3 mg/dL (0.2-1.0) 08/07/21 03:53 AST 10 U/L (15-37) L 08/07/21 03:53 ALT 19 U/L (12-78) 08/07/21 03:53 Alkaline Phosphatase 69 U/L (45-117) 08/07/21 03:53 Triglycerides 120 mg/dL (<150) 08/07/21 03:53 Cholesterol 120 mg/dL (<200) 08/07/21 03:53 HDL Cholesterol 41 mg/dL (40-60) 08/07/21 03:53 Cholesterol/HDL Ratio 2.93 08/07/21 03:53 Home Medications: Aspirin [Aspirin EC 81 MG] 81 mg PO DAILY #30 tablet. 07/22/21 Nitroglycerin [Nitrostat*] 0.4 mg SL UD PRN #30 tab 07/22/21 Atorvastatin Calcium [Lipitor] 40 mg PO BEDTIME 30 Days #30 tab 08/07/21 Clopidogrel Bisulfate [Plavix*] 75 mg PO DAILY 30 Days #30 tablet 08/07/21 Glimepiride 4 mg PO BID 30 Days #60 tab 08/07/21 Metoprolol Tartrate [Lopressor*] 25 mg PO BID 6AM 6PM 30 Days #60 tab 08/07/21 New Medications: Glimepiride 4 mg PO BID 30 Days #60 tab Atorvastatin Calcium [Lipitor] 40 mg PO BEDTIME 30 Days #30 tab Metoprolol Tartrate [Lopressor*] 25 mg PO BID 6AM 6PM 30 Days #60 tab Clopidogrel Bisulfate [Plavix*] 75 mg PO DAILY 30 Days #30 tablet Physician Discharge Instructions: You were evaluated for possible stroke or TIA. Your MRI was negative for any bleeding or stroke. There were no acute findings. Your CT of the brain was also negative for any intracranial pathology. Did not some mild inflammation of your maxillary sinuses which is consistent with the allergies you been experiencing. The MRI of your neck did reveal bilateral carotid artery stenosis (narrowing of your arteries). This increases your risk for stroke. You will need to follow-up with cardiovascular surgery for outpatient work-up and further treatment (possible surgery). Recommend to follow-up with them in the next few weeks (as soon as you can be seen in the office) Continue aspirin, Plavix, statin. No changes in your medications. Follow up with your PCP within 1 week Diet: AHA Activity: Ad vicki Followup: NONE,NONE [Primary Care Provider] - Time spent managing pt's care (in minutes): 45
[2021-08-07 14:12] VITALS: BP 130/72
[2021-08-07 15:07] VITALS: TEMP 97.3
[2021-08-07] MEDS ORDERED: ATORVASTATIN 40 MG TAB PO SCH (21:00)
== END 2021-08-07 15:23 | disposition home or self-care (01) ==
LOC: ER 19:35 → ERHOLD 22:00 → 2ND 23:47
PROVIDERS: ADMIT Hospitalist; ATTEND Hospitalist
DX: R47.02 Dysphasia (principal); F41.9 Anxiety disorder, unspecified; I65.23 Occlusion and stenosis of bilateral carotid arteries; J30.2 Other seasonal allergic rhinitis; I12.9 Hypertensive chronic kidney disease with stage 1 through stage 4 chronic kidney disease, or unspecified chronic kidney disease; E11.22 Type 2 diabetes mellitus with diabetic chronic kidney disease; N18.30 Chronic kidney disease, stage 3 unspecified; R07.9 Chest pain, unspecified; Z20.822 Contact with and (suspected) exposure to COVID-19; Z79.82 Long term (current) use of aspirin; Z79.02 Long term (current) use of antithrombotics/antiplatelets; Z80.0 Family history of malignant neoplasm of digestive organs; Z82.0 Family history of epilepsy and other diseases of the nervous system
CPT/HCPCS: 36415; 70450; 70544; 70549; 70553; 71045; 80048; 80053; 80061; 80076; 81003; 82947; 83036; 83735; 83880; 84439; 84443; 84484; 85025; 85610; 93005; 96374; 97116; 97161; 99285; G0378; J1644; U0003

== ENCOUNTER 2021-08-13 20:00 | Observation (INO) | payer OTHER ==
[2021-08-13 22:49] LABS: Protime INR 0.96
[2021-08-13 22:50] LABS: Absolute Lymphocytes (CBC) 1.6 K/uL (0.7-4.9); Hematocrit 42.1 % (39.6-49.0); Lymphocytes % 23.3 % (15.3-44.8); MPV 7.2 fL (7.6-11.3); RBC Red Blood Cell Count 4.54 M/uL (4.33-5.43)
[2021-08-13 23:11] LABS: SARS-COV-2 RT PCR NEGATIVE (NEGATIVE)
[2021-08-13 23:13] LABS: ALT/SGPT 24 U/L (12-78); AST/SGOT 16 U/L (15-37); Albumin 3.7 g/dL (3.4-5.0); Alkaline Phosphatase 78 U/L (45-117); BUN Blood Urea Nitrogen 19 mg/dL (7-18); Bicarbonate 27 mmol/L (21-32); Bilirubin Direct 0.2 mg/dL (0-0.2); Bilirubin Total 0.5 mg/dL (0.2-1.0); Glucose Level 101 mg/dL (74-106); Magnesium 2.9 mg/dL (1.8-2.4); NT PRO-BNP 222 pg/mL (<450); Potassium 3.7 mmol/L (3.5-5.1); Protein, Total 7.8 g/dL (6.4-8.2); Sodium Level 139 mmol/L (136-145); Thyroid Stimulating Hormone 0.291 uIU/mL (0.360-3.740); Troponin (Emerg Dept Use Only) < 0.02 ng/mL (0.0-0.045)
[2021-08-14 00:22] LABS: Urine Blood Negative (Negative); Urine Glucose Negative (Negative); Urine Protein Negative (Negative); Urine Specific Gravity <=1.005 (1.005-1.030)
[2021-08-14] MEDS ORDERED: ALBUTEROL 2.5 MG/3 ML NEB SOL ONE (01:08)
--- NOTE | 2021-08-14 02:09 | ER ---
Nurse's Notes [facility] Name: Yeyo Pelayo Age: 80 yrs Sex: Male : 1940 Arrival Date: 08/13/2021 Time: 20:44 Bed 15 Private MD: Diagnosis: Dyspnea, unspecified;Weakness;Adult failure to thrive Presentation: 08/13 21:32 Chief complaint: Patient states: he has had several episodes today of difficulty bb breathing pt unable to explain what is happening. Coronavirus screen: difficulty breathing. Ebola Screen: No symptoms or risks identified at this time. Initial Sepsis Screen: Does the patient meet any 2 criteria? No. Patient's initial sepsis screen is negative. Does the patient have a suspected source of infection? No. Patient's initial sepsis screen is negative. Risk Assessment: Do you want to hurt yourself or someone else? Patient reports no desire to harm self or others. Onset of symptoms was August 13, 2021. 21:32 Method Of Arrival: EMS: [facility] bb 21:32 Acuity: KEN 2 bb Triage Assessment: 21:35 General: Appears distressed, Behavior is cooperative, anxious. Pain: Denies pain. bb Neuro: Level of Consciousness is awake, alert, obeys commands, Oriented to person, place, time, situation. Cardiovascular: Heart tones S1 S2 present Capillary refill < 3 seconds Patient's skin is warm and dry. Respiratory: Reports shortness of breath Breath sounds are clear bilaterally. Onset: The symptoms/episode began/occurred today, the patient has mild shortness of breath. GI: No signs and/or symptoms were reported involving the gastrointestinal system. Derm: Skin is pink, warm \\T\\ dry. Musculoskeletal: Circulation, motion, and sensation intact. Historical: - Allergies: 21:35 No Known Allergies; bb - Home Meds: 21:35 amlodipine 5 mg tab 2 tabs [Active]; glimepiride 4 mg Oral tab 1 tab [Active]; does not bb know all of his medications [Active]; - PMHx: 21:35 Diabetes - NIDDM; Hypertension; Kidney stones; bb - PSHx: 21:35 Lithotripsy; bb - Immunization history:: Adult Immunizations up to date, Client reports receiving the 2nd dose of the Covid vaccine. - Social history:: Smoking status: unknown. Screenin/29 03:24 Abuse screen: Denies threats or abuse. Denies injuries from another. Nutritional sm5 screening: No deficits noted. Tuberculosis screening: No symptoms or risk factors identified. Fall Risk None identified. Assessment: 08/13 23:18 General: Appears in no apparent distress. Behavior is calm, cooperative. Neuro: No sm5 deficits noted. Level of Consciousness is awake, alert, Oriented to person, place, time, situation. Cardiovascular: Capillary refill < 3 seconds Patient's skin is warm and dry. Rhythm is sinus bradycardia with 1st degree heart block. Respiratory: No deficits noted. Airway is patent Trachea midline Respiratory effort is even, unlabored. Vital Signs: 21:32 BP 179 / 79; Pulse 65; Resp 38 S; Temp 97.8(O); Pulse Ox 99% on R/A; Weight 74.39 kg bb (R); Height 6 ft. 1 in. (185.42 cm) (R); Pain 0/10; 23:19 BP 146 / 65; Pulse 55; Resp 20; Pulse Ox 99% on R/A; sm5 21:32 Body Mass Index 21.64 (74.39 kg, 185.42 cm) bb ED Course: 20:44 Patient arrived in ED. wm 21:35 Triage completed. bb 21:35 Arm band placed on. bb 21:45 Trevon Casanova MD is Attending Physician. 7 21:58 Sharon Calderon, CACHORRO is Primary Nurse. sm5 22:09 XRAY Chest (1 view) In Process Unspecified. EDMS 22:15 CT Head Brain wo Cont In Process Unspecified. EDMS 22:28 COVID-19/FLU A+B/RSV Sent. sm5 22:28 COVID-19/FLU A+B/RSV (Document "Date of Onset" if Symptomatic) Sent. sm5 22:28 NT PRO-BNP Sent. sm5 22:28 Liver (Hepatic) Function Sent. sm5 22:28 Magnesium Sent. sm5 22:28 CBC with Automated Diff Sent. sm5 22:28 Basic Metabolic Panel Sent. sm5 22:28 Basic Metabolic Panel Sent. sm5 22:28 CBC with Diff Sent. sm5 22:28 LFT's Sent. sm5 22:29 Magnesium Sent. sm5 22:29 NT PRO-BNP Sent. sm5 22:29 PT-INR Sent. 5 22:29 Troponin (emerg Dept Use Only) Sent. 5 22:29 Inserted saline lock: 20 gauge in right upper arm, using aseptic technique. Blood [facility] collected. 08/14 00:58 CT Chest Wo Con In Process Unspecified. EDMS 02:08 Savanah Hoover MD is Hospitalizing Provider. [facility] 03:24 Patient has correct armband on for positive identification. Placed in gown. Bed in low sm5 position. Call light in reach. Side rails up X2. 03:24 No provider procedures requiring assistance completed. Patient admitted, IV remains in [address] Administered Medications: 01:08 Drug: Albuterol 2.5 mg Route: Inhalation; [facility] Outcome: 02:08 Decision to Hospitalize by Provider. [facility] 03:24 Admitted to Med/surg accompanied by tech, via wheelchair, on monitor, with chart. [facility] 03:24 Condition: good 03:24 Instructed on the need for admit. 03:55 Patient left the ED. [facility] Signatures: Dispatcher [employer] EDSharona Lund, RN RN bb Trevon Casanova MD MD [facility] Aurea Campos Sarah, RN RN [facility] Corrections: (The following items were deleted from the chart) 08/13 22:50 22:28 THYROID STIMULAT HORMONE+C.LAB.BRZ drawn and sent. [facility] EDMN
--- NOTE | 2021-08-14 02:09 | EDPHYS ---
Physician Documentation [facility] Name: Yeyo Pelayo Age: 80 yrs Sex: Male : 1940 Arrival Date: 08/13/2021 Time: 20:44 Bed 15 Private MD: ED Physician Trevon Casanova HPI: 08/13 21:59 This 80 yrs old Male presents to ER via EMS with complaints of Shortness Of Breath. mh7 21:59 The patient has shortness of breath with light activity. Onset: The symptoms/episode mh7 began/occurred this morning, today. Duration: The symptoms are intermittent, with no pattern. The patient's shortness of breath is aggravated by exertion, light activity, is alleviated by nothing. Associated signs and symptoms: Pertinent positives: chest pain, Generalized weakness, Pertinent negatives: non-productive cough, productive cough, diaphoresis, dizziness, fever, hemoptysis, loss of consciousness, nausea, numbness in extremities, visual changes, vomiting. Severity of symptoms: At their worst the symptoms were moderate today, in the emergency department the symptoms are unchanged. The patient has been recently been admitted at [facility], was discharged last week. Historical: - Allergies: 21:35 No Known Allergies; bb - Home Meds: 21:35 amlodipine 5 mg tab 2 tabs [Active]; glimepiride 4 mg Oral tab 1 tab [Active]; does not bb know all of his medications [Active]; - PMHx: 21:35 Diabetes - NIDDM; Hypertension; Kidney stones; bb - PSHx: 21:35 Lithotripsy; bb - Immunization history:: Adult Immunizations up to date, Client reports receiving the 2nd dose of the Covid vaccine. - Social history:: Smoking status: unknown. ROS: 21:59 Constitutional: Negative for fever, chills, and weight loss, Eyes: Negative for injury, mh7 pain, redness, and discharge, ENT: Negative for injury, pain, and discharge, Neck: Negative for injury, pain, and swelling, Abdomen/GI: Negative for abdominal pain, nausea, vomiting, diarrhea, and constipation, Back: Negative for injury and pain, : Negative for injury, bleeding, discharge, and swelling, MS/Extremity: Negative for injury and deformity, Skin: Negative for injury, rash, and discoloration. 21:59 Psych: Negative for depression, anxiety, suicide ideation, homicidal ideation, and hallucinations, Allergy/Immunology: Negative for hives, rash, and allergies, Endocrine: Negative for neck swelling, polydipsia, polyuria, polyphagia, and marked weight changes, Hematologic/Lymphatic: Negative for swollen nodes, abnormal bleeding, and unusual bruising. 21:59 Neuro: Negative for altered mental status, dizziness, gait disturbance, headache, hearing loss, loss of consciousness, numbness, seizure activity, speech changes, syncope, near syncope, tingling, tinnitus, tremor, visual changes. Exam: 21:59 Head/Face: Normocephalic, atraumatic. Eyes: Pupils equal round and reactive to light, mh7 extra-ocular motions intact. Lids and lashes normal. Conjunctiva and sclera are non-icteric and not injected. Cornea within normal limits. Periorbital areas with no swelling, redness, or edema. Neck: Trachea midline, no thyromegaly or masses palpated, and no cervical lymphadenopathy. Supple, full range of motion without nuchal rigidity, or vertebral point tenderness. No Meningismus. Chest/axilla: Normal chest wall appearance and motion. Nontender with no deformity. No lesions are appreciated. Cardiovascular: Regular rate and rhythm with a normal S1 and S2. No gallops, murmurs, or rubs. Normal PMI, no JVD. No pulse deficits. Abdomen/GI: Soft, non-tender, with normal bowel sounds. No distension or tympany. No guarding or rebound. No evidence of tenderness throughout. Back: No spinal tenderness. No costovertebral tenderness. Full range of motion. Skin: Warm, dry with normal turgor. Normal color with no rashes, no lesions, and no evidence of cellulitis. MS/ Extremity: Pulses equal, no cyanosis. Neurovascular intact. Full, normal range of motion. Psych: Awake, alert, with orientation to person, place and time. Behavior, mood, and affect are within normal limits. 21:59 Constitutional: The patient appears in no acute distress, alert, awake, anxious. 21:59 Neuro: Orientation: is normal, Mentation: is normal, Memory: appropriate for stated age, Cranial nerves: grossly normal, Cerebellar function: is grossly normal, Motor: is normal, Sensation: is normal, Gait: not tested. seizure activity, is not displayed by the patient, Abnormal movements: there are no abnormal movements. 21:59 Respiratory: mild respiratory distress is noted, Respirations: prolonged exhalation, mh7 that is mild, Breath sounds: rhonchi, that are mild, are scattered, Respiratory rate: 26 Vital Signs: 21:32 BP 179 / 79; Pulse 65; Resp 38 S; Temp 97.8(O); Pulse Ox 99% on R/A; Weight 74.39 kg bb (R); Height 6 ft. 1 in. (185.42 cm) (R); Pain 0/10; 23:19 BP 146 / 65; Pulse 55; Resp 20; Pulse Ox 99% on R/A; sm5 21:32 Body Mass Index 21.64 (74.39 kg, 185.42 cm) MDM: 08/14 02:07 Differential diagnosis: Anemia Anxiety Reaction asthma, Bronchitis CHF exacerbation, mh7 Chronic Obstructive Pulmonary Disease Myocardial Infarction pneumonia, Pneumothorax Psychogenic pulmonary edema, reactive airway disease. Data reviewed: vital signs, nurses notes, old medical records, lab test result(s), cardiac enzymes, CBC, electrolytes, Rh: EKG, radiologic studies, CT scan, plain films. Data interpreted: Pulse oximetry: on 2L(s) per nasal canula, is 99 %. Interpretation: acceptable. Counseling: I had a detailed discussion with the patient and/or guardian regarding: the historical points, exam findings, and any diagnostic results supporting the discharge/admit diagnosis, the presence of at least one elevated blood pressure reading (>120/80) during this emergency department visit, lab results, radiology results, the need for further work-up and treatment in the hospital. Response to treatment: the patient's symptoms have mildly improved after treatment. 02:08 Patient medically screened. [facility] 08/13 21:57 Order name: Basic Metabolic Panel [facility] 08/13 21:57 Order name: CBC with Diff [facility] 08/13 21:57 Order name: LFT's [facility] 08/13 21:57 Order name: Magnesium [facility] 08/13 21:57 Order name: NT PRO-BNP [facility] 08/13 21:57 Order name: PT-INR; Complete Time: 23:09 [facility] 08/13 21:57 Order name: Troponin (emerg Dept Use Only); Complete Time: 23:51 [facility] 08/13 21:57 Order name: Basic Metabolic Panel; Complete Time: 23:51 [facility] 08/13 21:57 Order name: CBC with Automated Diff; Complete Time: 23:09 [facility] 08/13 21:57 Order name: Liver (Hepatic) Function; Complete Time: 23:51 [facility] 08/13 21:57 Order name: Magnesium; Complete Time: 23:51 [facility] 08/13 21:57 Order name: NT PRO-BNP; Complete Time: 23:51 [facility] 08/13 21:58 Order name: COVID-19/FLU A+B/RSV (Document "Date of Onset" if Symptomatic) [facility] 08/13 21:59 Order name: COVID-19/FLU A+B/RSV; Complete Time: 23:51 [facility] 08/13 21:57 Order name: XRAY Chest (1 view) [facility] 08/13 21:57 Order name: EKG; Complete Time: 21:58 [facility] 08/13 21:57 Order name: Cardiac monitoring; Complete Time: 23:00 [facility] 08/13 21:57 Order name: EKG - Nurse/Tech; Complete Time: 23:00 [facility] 08/13 21:57 Order name: IV Saline Lock; Complete Time: 22:29 [facility] 08/13 21:57 Order name: Labs collected and sent; Complete Time: 22:29 [facility] 08/13 21:57 Order name: O2 Per Protocol; Complete Time: 22:29 [facility] 08/13 21:57 Order name: O2 Sat Monitoring; Complete Time: 22:29 [facility] 08/13 21:57 Order name: Urine Dipstick-Ancillary (obtain specimen); Complete Time: 00:21 [facility] 08/13 21:57 Order name: CT Head Brain wo Cont [facility] 08/13 22:50 Order name: Thyroid Stimulating Hormone; Complete Time: 23:51 [facility] 08/14 00:22 Order name: Urine Dipstick-Ancillary; Complete Time: 00:35 [facility] 08/14 00:34 Order name: CT Chest Wo Con [facility] Administered Medications: 01:08 Drug: Albuterol 2.5 mg Route: Inhalation; sm5 Disposition Summary: 08/14/21 02:08 Hospitalization Ordered Hospitalization Status: Inpatient Admission [facility] Provider: Savanah Hoover [facility] Location: Telemetry/MedSurg (Inpatient) mh7 Condition: Stable mh7 Problem: new mh7 Symptoms: have improved mh7 Bed/Room Type: Standard [facility] Room Assignment: 228(08/14/21 02:43) cg Diagnosis - Dyspnea, unspecified mh7 - Weakness mh7 - Adult failure to thrive mh7 Forms: - Medication Reconciliation Form mh7 - SBAR form mh7 Signatures: Dispatcher [employer] [facility] Sharona Melissa RN RN bb Lisa Faria RN RN cg Holmes, Maurice, MD MD [facility] Sharon Calderon RN RN sm5 Corrections: (The following items were deleted from the chart) 08/13 22:50 22:07 THYROID STIMULAT HORMONE+C.LAB.BRZ ordered. [facility] 08/14 02:43 02:08 mh7 cg
--- NOTE | 2021-08-14 02:44 | P.HP ---
Certification for Inpatient Patient admitted to: Observation With expected LOS: <2 Midnights Patient will require the following post-hospital care: None Practitioner: I am a practitioner with admitting privileges, knowledge of patient current condition, hospital course, and medical plan of care. Services: Services provided to patient in accordance with Admission requirements found in Title 42 Section 412.3 of the Code of Federal Regulations <Blair Bain - Last Filed: 08/14/21 02:51> Patient History Date of Service: 08/14/21 Reason for admission: dyspnea, FTT History of Present Illness: Mr. Pelayo is a 80 yo M with DM, HTN, CKD3 who presents with one day of weakness and SOB. He says this morning he was too weak to get up. He reports malaise, fatigue and lightheadedness. He reports sinus congestion and allergies that he says are contributing to his symptoms. He says he has had no appetite and increased weight loss over the past 4 months. He reports palpitations at night. Denies fever. Recently discharged for concern for stroke and carotid artery stenosis and told to follow up with cardiology. Has had difficulty scheduling an appointment due to the holidays but has been taking medications as instructed. BUN 19 Cr 1.39 GFR [address] Chest - No focal infiltrate CXR - enlarged heart with no evidence of CHF. atelectic changes versus infiltrate infrahilar regions bilaterally CT Head - no acute intracranial abnormality identified. mild chronic age-related and microvascular ischemic changes. large air-fluid level in the left maxillary sinus. - Past Medical/Surgical History Diabetic: Yes -: Hypertension -: Type 2 diabetes -: Nephrolithiasis -: CKD 3 -: urethral stent placement -: cystoscopy -: hernia repair Psychosocial/ Personal History: Retired, lives at home with his - Family History Mother Notes: alzheimers Father -: Cancer Notes: colon - Social History Smoking Status: Never smoker Alcohol use: No CD- Drugs: No Caffeine use: No Place of Residence: Home <Blair Bain Sameera - Last Filed: 08/14/21 02:51> Date of Service: 08/14/21 <Savanah Hoover - Last Filed: 08/14/21 16:32> Allergies No Known Drug Allergies Allergy (Verified 08/18/16 02:20) Unknown Home Medications: Aspirin [Aspirin EC 81 MG] 81 mg PO DAILY #30 tablet.dr 07/22/21 Nitroglycerin [Nitrostat*] 0.4 mg SL UD PRN #30 tab 07/22/21 Atorvastatin Calcium [Lipitor] 40 mg PO BEDTIME 30 Days #30 tab 08/07/21 Clopidogrel Bisulfate [Plavix*] 75 mg PO DAILY 30 Days #30 tablet 08/07/21 Glimepiride 4 mg PO BID 30 Days #60 tab 08/07/21 Metoprolol Tartrate [Lopressor*] 25 mg PO BID 6AM 6PM 30 Days #60 tab 08/07/21 Review of Systems 10-point ROS is otherwise unremarkable General: Weakness, Malaise, As per HPI Eyes: Unremarkable ENT: Nose Discharge, Nose Congestion, Throat Pain, As per HPI Respiratory: Cough, Shortness of Breath, Sputum, As per HPI Cardiovascular: Palpitations Gastrointestinal: Unremarkable Genitourinary: Unremarkable Musculoskeletal: Unremarkable Integumentary: Unremarkable Neurological: Weakness, As per HPI Lymphatics: Unremarkable <Blair Bain - Last Filed: 08/14/21 02:51> Physical Examination - Physical Exam General: Alert, In no apparent distress HEENT: Atraumatic, PERRLA, Mucous membr. moist/pink, EOMI, Sclerae nonicteric Neck: Supple, 2+ carotid pulse no bruit, No LAD, Without JVD or thyroid abnormality Respiratory: Clear to auscultation bilaterally, Normal air movement Cardiovascular: Regular rate/rhythm, Normal S1 S2 Gastrointestinal: Normal bowel sounds, No tenderness Musculoskeletal: No tenderness Integumentary: No rashes Neurological: Normal speech, Normal strength at 5/5 x4 extr, Normal tone, Normal affect Lymphatics: No axilla or inguinal lymphadenopathy - Studies Laboratory Data (last 24 hrs) 08/13/21 22:25: PT 11.0, INR 0.96 08/13/21 22:25: WBC 6.70, Hgb 14.3, Hct 42.1, Plt Count 247 08/13/21 22:25: Sodium 139, Potassium 3.7, BUN 19 H, Creatinine 1.39 H, Glucose 101, Magnesium 2.9 H, Total Bilirubin 0.5, AST 16, ALT 24, Alkaline Phosphatase 78 <Blair Bain - Last Filed: 08/14/21 02:51> - Studies Laboratory Data (last 24 hrs) 08/13/21 22:25: PT 11.0, INR 0.96 08/13/21 22:25: WBC 6.70, Hgb 14.3, Hct 42.1, Plt Count 247 08/13/21 22:25: Sodium 139, Potassium 3.7, BUN 19 H, Creatinine 1.39 H, Glucose 101, Magnesium 2.9 H, Total Bilirubin 0.5, AST 16, ALT 24, Alkaline Phosphatase 78 <Savanah Hoover - Last Filed: 08/14/21 16:32> Assessment and Plan - Problems (Diagnosis) (1) Sinusitis Current Visit: Yes Status: Acute Qualifiers: Sinusitis location: unspecified location Chronicity: acute Recurrence: not specified as recurrent Qualified Code(s): J01.90 - Acute sinusitis, un specified (2) CKD (chronic kidney disease) Current Visit: Yes Status: Chronic Qualifiers: Chronic kidney disease stage: unspecified stage Qualified Code(s): N18.9 - Chronic kidney disease, unspecified (3) Dyspnea Current Visit: Yes Status: Acute Qualifiers: Dyspnea type: unspecified Qualified Code(s): R06.00 - Dyspnea, unspecified (4) Weakness Current Visit: Yes Status: Acute (5) DM2 (diabetes mellitus, type 2) Onset Date: 07/17/14 Current Visit: No Status: Chronic Qualifiers: Diabetes mellitus mcc insulin use: without mcc use Diabetes mellitus complication status: with kidney complications Diabetes mellitus complication detail: with chronic kidney disease Chronic kidney disease stage: unspecified stage Qualified Code(s): E11.22 - Type 2 diabetes mellitus with diabetic chronic kidney disease (6) HTN (hypertension) Onset Date: 07/17/14 Current Visit: No Status: Chronic Qualifiers: Hypertension type: primary hypertension Qualified Code(s): I10 - Essential (primary) hypertension - Plan dietitian consulted PT consulted continue tylenol, psuedoephedrine, flonase, saline washes as needed on tele, O2 as needed, breathing treatments as needed T4 pending reconcile and continue home medications DVT ppx Discharge Plan: Home Plan to discharge in: 24 Hours - Advance Directives Does patient have a Living Will: No Does patient have a Durable POA for Healthcare: No - Code Status/Comfort Care Code Status Assessed: Yes (full code ) Critical Care: No Time Spent Managing Pts Care (In Minutes): 70 <Blair Bain Sameera - Last Filed: 08/14/21 02:51> - Problems (Diagnosis) (1) Psychosomatic disorder Current Visit: Yes Status: Acute (2) Depression with anxiety Current Visit: Yes Status: Acute (3) Sinusitis Current Visit: Yes Status: Acute Qualifiers: Sinusitis location: unspecified location Chronicity: acute Recurrence: not specified as recurrent Qualified Code(s): J01.90 - Acute sinusitis, unspecified (4) CKD (chronic kidney disease) Current Visit: Yes Status: Chronic Qualifiers: Chronic kidney disease stage: unspecified stage Qualified Code(s): N18.9 - Chronic kidney disease, unspecified (5) DM2 (diabetes mellitus, type 2) Onset Date: 07/17/14 Current Visit: No Status: Chronic Qualifiers: Diabetes mellitus mcc insulin use: without mcc use Diabetes mellitus complication status: with kidney complications Diabetes mellitus complication detail: with chronic kidney disease Chronic kidney disease stage: unspecified stage Qualified Code(s): E11.22 - Type 2 diabetes mellitus with diabetic chronic kidney disease (6) HTN (hypertension) Onset Date: 07/17/14 Current Visit: No Status: Chronic Qualifiers: Hypertension type: primary hypertension Qualified Code(s): I10 - Essential (primary) hypertension <Savanah Hoover - Last Filed: 08/14/21 16:32> Date of Service: 08/14/21 Subjective Agree with HPI as mentioned above Review of Systems 10-point ROS is otherwise unremarkable Physical Examination - Vital Signs Reviewed - Physical Exam General: Alert, In no apparent distress, Oriented x3 HEENT: Atraumatic, PERRLA, EOMI Neck: Supple, JVD not distended Respiratory: Clear to auscultation bilaterally, Normal air movement Cardiovascular: Regular rate/rhythm, Normal S1 S2 Gastrointestinal: Normal bowel sounds, No tenderness Musculoskeletal: No tenderness Integumentary: No rashes Neurological: Normal speech, Normal tone, Normal affect Lymphatics: No axilla or inguinal lymphadenopathy Assessment & Plan - Problems (Diagnosis) (1) Psychosomatic disorder Current Visit: Yes Status: Acute (2) Depression with anxiety Current Visit: Yes Status: Acute (3) Sinusitis Current Visit: Yes Status: Acute Qualifiers: Sinusitis location: unspecified location Chronicity: acute Recurrence: not specified as recurrent Qualified Code(s): J01.90 - Acute sinusitis, unspecified (4) CKD (chronic kidney disease) Current Visit: Yes Status: Chronic Qualifiers: Chronic kidney disease stage: unspecified stage Qualified Code(s): N18.9 - Chronic kidney disease, unspecified (5) DM2 (diabetes mellitus, type 2) Onset Date: 07/17/14 Current Visit: No Status: Chronic Qualifiers: Diabetes mellitus mcc insulin use: without mcc use Diabetes mellitus complication status: with kidney complications Diabetes mellitus complication detail: with chronic kidney disease Chronic kidney disease stage: unspecified stage Qualified Code(s): E11.22 - Type 2 diabetes mellitus with diabetic chronic kidney disease (6) HTN (hypertension) Onset Date: 07/17/14 Current Visit: No Status: Chronic Qualifiers: Hypertension type: primary hypertension Qualified Code(s): I10 - Essential (primary) hypertension - Plan Agree with plan of care as mentioned below: 1. Continue with EEG 2. Anti-platelet and statin therapy 3. Antidepressants and anxiolytics 4. Medication for insomnia 5. Cardiology and neurology consultation 6. GI and DVT prophylax Patient is a Jehovah Witness and likes to contact his elders before making any decisions. - Advance Directives Does patient have a Living Will: No Does patient have a Durable POA for Healthcare: No <Savanah Hoover - Last Filed: 08/14/21 16:32>
[2021-08-14 04:03] VITALS: BMI 20.7
[2021-08-14] MEDS ORDERED: IPRATROPIUM BROM 0.5MG/2.5ML NEB PRN (04:04)
[2021-08-14] MEDS ORDERED: MUCINEX DM 12HR.SR TAB PO PRN (04:04)
[2021-08-14] MEDS ORDERED: ALBUTEROL 2.5 MG/3 ML NEB SOL NEB PRN (04:04)
[2021-08-14] MEDS ORDERED: ACETAMINOPHEN 500 MG TAB PO PRN (04:04)
[2021-08-14] MEDS ORDERED: PSEUDOEPHEDRINE 30 MG TAB PO PRN (04:04)
[2021-08-14] MEDS ORDERED: BENZONATATE 100 MG CAP PO PRN (04:04)
[2021-08-14] MEDS ORDERED: MELATONIN 5 MG TABLET PO PRN (04:04)
[2021-08-14] MEDS ORDERED: ONDANSETRON 4 MG/2 ML VIAL IV PRN (04:04)
[2021-08-14] MEDS: INSULIN -REGULAR HUMAN 50 UNIT/0.5 ML ML SQ SCH ×4 (07:30→19:16)
[2021-08-14] MEDS ORDERED: POTASSIUM CL SA 10 MEQ TAB PO ONE (09:00)
[2021-08-14] MEDS: FLUTICASONE 50MCG NASAL SPRAY NAS SCH ×2 (09:00→19:16)
[2021-08-14] MEDS: SOD CHLORIDE 0.65% NASAL SPRAY NAS SCH ×4 (09:00→19:17)
[2021-08-14] MEDS: ASCORBIC ACID 500 MG TABLET PO SCH (09:38)
[2021-08-14] MEDS: ZINC SULFATE 220 MG CAP PO SCH (09:38)
[2021-08-14] MEDS ORDERED: NITROGLYCERIN 0.4 MG/TAB SL PRN (13:59)
--- NOTE | 2021-08-14 14:41 | RAD REPORT ---
EXAM DESCRIPTION: CT - Head Brain Wo Cont - 08/14/2021 6:21 am CLINICAL HISTORY: WEAKNESS. TECHNIQUE: Noncontrast CT through the head was performed. Axial, coronal, and sagittal reconstructio ns were created and sent to PACS. This exam was performed according to our departmental dose-optimiza tion program which includes use of Automated Exposure Control, adjustment of the mA and/or kV accordi ng to patient size and/or use of iterative reconstruction technique. COMPARISON: CT head from August 06, 2021. FINDINGS: There is diffuse age-appropriate atrophy throughout the brain parenchyma. Mild periventric ular white matter changes are present, and there is mild ex vacuo dilatation of the ventricular syste m. There is no intra-axial or extra-axial bleed. There is no mass or mass effect. Large air-fluid level in the left maxillary sinus. The remaining visualized paranasal sinuses and mas toid air cells are patent. No acute fracture is identified. IMPRESSION: 1. No acute intracranial abnormality identified. Mild chronic age-related and microvas cular ischemic changes. 2. Large air-fluid level in the left maxillary sinus. Correlate for potential acute sinusitis. Electronically signed by: Edith Arora MD 08/13/2021 10:45 PM [employer] Due to temporary technical issues with the PACS/Fluency reporting system, reports are being signed by the in house radiologists without review as a courtesy to insure prompt reporting. The interpreting radiologist is fully responsible for the content of the report.
[2021-08-14] MEDS ORDERED: TEMAZEPAM 15 MG CAP PO PRN (15:28)
[2021-08-14] MEDS ORDERED: ALPRAZOLAM 0.5 MG TABLET PO ONE (15:38)
--- NOTE | 2021-08-14 16:31 | P.PN ---
Subjective Date of Service: 08/14/21 Patient is having a lot of psychosomatic issues. He gets really anxious and then he goes into a catatonic state. He states he is very worked up because he is afraid to go to sleep because he thinks he is going to . And then he has not been sleeping in becomes tearful when talking about this. His is concerned he has been getting aggressive. She brought her into the hospital for further evaluation. Patient does have carotid artery stenosis bilaterally. However no evidence of stroke. Continue with anti-platelet and statin therapy. EEG pending. Start on antidepressant and anxiolytics. Review of Systems 10-point ROS is otherwise unremarkable Physical Examination - Vital Signs Temperature: 97.7 F Blood Pressure: 190/87 Pulse: 72 Respirations: 20 Pulse Ox (%): 98 - Physical Exam General: Alert, In no apparent distress, Oriented x3 HEENT: Atraumatic, PERRLA, EOMI Neck: Supple, JVD not distended Respiratory: Clear to auscultation bilaterally, Normal air movement Cardiovascular: Regular rate/rhythm, Normal S1 S2 Gastrointestinal: Normal bowel sounds, No tenderness Musculoskeletal: No tenderness Integumentary: No rashes Neurological: Normal speech, Normal tone, Normal affect Lymphatics: No axilla or inguinal lymphadenopathy - Studies Laboratory Data (last 24 hrs) 08/13/21 22:25: PT 11.0, INR 0.96 08/13/21 22:25: WBC 6.70, Hgb 14.3, Hct 42.1, Plt Count 247 08/13/21 22:25: Sodium 139, Potassium 3.7, BUN 19 H, Creatinine 1.39 H, Glucose 101, Magnesium 2.9 H, Total Bilirubin 0.5, AST 16, ALT 24, Alkaline Phosphatase 78 Medications List Reviewed: Yes Assessment & Plan - Problems (Diagnosis) (1) Psychosomatic disorder Current Visit: Yes Status: Acute (2) Depression with anxiety Current Visit: Yes Status: Acute (3) Sinusitis Current Visit: Yes Status: Acute Qualifiers: Sinusitis location: unspecified location Chronicity: acute Recurrence: not specified as recurrent Qualified Code(s): J01.90 - Acute sinusitis, unspecified (4) CKD (chronic kidney disease) Current Visit: Yes Status: Chronic Qualifiers: Chronic kidney disease stage: unspecified stage Qualified Code(s): N18.9 - Chronic kidney disease, unspecified (5) DM2 (diabetes mellitus, type 2) Onset Date: 07/17/14 Current Visit: No Status: Chronic Qualifiers: Diabetes mellitus halfway insulin use: without roasterman use Diabetes mellitus complication status: with kidney complications Diabetes mellitus complication detail: with chronic kidney disease Chronic kidney disease stage: unspecified stage Qualified Code(s): E11.22 - Type 2 diabetes mellitus with diabetic chronic kidney disease (6) HTN (hypertension) Onset Date: 07/17/14 Current Visit: No Status: Chronic Qualifiers: Hypertension type: primary hypertension Qualified Code(s): I10 - Essential (primary) hypertension - Plan Plan: 1. Continue with EEG 2. Anti-platelet and statin therapy 3. Antidepressants and anxiolytics 4. Medication for insomnia 5. Cardiology and neurology consultation 6. GI and DVT prophylax Patient is a Jehovah Witness and likes to contact his elders before making any decisions. - Advance Directives Does patient have a Living Will: No Does patient have a Durable POA for Healthcare: No
--- NOTE | 2021-08-14 16:58 | RAD REPORT ---
EXAM DESCRIPTION: CT - Thorax Wo Jones - 08/14/2021 6:20 am CLINICAL HISTORY: Shortness of breath, possible pneumonia TECHNIQUE: Axial computed tomography images of the chest without intravenous contrast. Sagittal an d coronal reformatted images were created and reviewed. This CT exam was performed using one or mor e of the following dose reduction techniques: automated exposure control, adjustment of the mA and/ or kV according to patient size, and/or use of iterative reconstruction technique. COMPARISON: 07/10/2021 FINDINGS: Lungs: Minimal biapical pleural parenchymal scar. No focal infiltrate. Pleural space: Unremarkable. No pneumothorax. No significant effusion. Heart: The heart is mildly enlarged. Coronary artery calcification. No significant pericardial ef fusion. Bones/joints: Multilevel spondylosis. No acute fracture. No dislocation. Soft tissues: Unremarkable. Vasculature: Mild to moderate atherosclerotic disease. No thoracic aortic aneurysm. Lymph nodes: Unremarkable. No enlarged lymph nodes. IMPRESSION: 1. No focal infiltrate. 2. Other findings as above. Electronically signed by: Stephenie Collier MD 08/14/2021 1:31 AM [facility] Due to temporary technical issues with the PACS/Fluency reporting system, reports are being signed by the in house radiologists without review as a courtesy to insure prompt reporting. The interpreting radiologist is fully responsible for the content of the report.
--- NOTE | 2021-08-14 17:18 | RAD REPORT ---
EXAM DESCRIPTION: RAD - Chest Single View - 08/13/2021 10:09 pm CLINICAL HISTORY: 80 years Male SOB COMPARISON: None TECHNIQUE: AP view of the chest was obtained. FINDINGS: Cardiac silhouette is enlarged. Central vessels are not increased. Airspace opacities infrahilar regions bilaterally. No effusions bilaterally. No pneumothorax. IMPRESSION: Enlarged heart with no evidence for congestive heart failure. Atelectatic change versus infiltrate infrahilar regions bilaterally. Electronically signed by: Yolanda Lea MD 08/14/2021 12:25 AM [employer] Due to temporary technical issues with the PACS/Fluency reporting system, reports are being signed by the in house radiologists without review as a courtesy to insure prompt reporting. The interpreting radiologist is fully responsible for the content of the report.
[2021-08-14] MEDS: GLIMEPIRIDE 2 MG TABLET PO SCH (17:55)
[2021-08-14] MEDS: METOPROLOL TAR 25 MG TAB PO SCH (17:55)
--- NOTE | 2021-08-14 18:21 | RAD REPORT ---
EXAM DESCRIPTION: MRI - Brain W/Wo Cont - 08/14/2021 5:56 pm CLINICAL HISTORY: forgetfulness Headache, drowsiness, blurry vision COMPARISON: MRA Head Wo Cont dated 08/14/2021; MRA Neck W/Wo Cont dated 08/14/2021; Brain W/Wo Cont dated 08/07/2021 TECHNIQUE: Multi-sequence, multiplanar MR imaging of the brain was performed with contrast. FINDINGS: No intracranial hemorrhage, hydrocephalus, or extra-axial fluid collection.Mild brain atro phy with mild periventricular and deep white matter chronic microvascular ischemic changes. No edema or shift of midline structures. No intracranial mass. DWI is negative for acute CVA. The midline structures are normally formed. Moderate fluid is seen in the left maxillary antrum. The paranasal sinuses and mastoids otherwise clear. Post-contrast images show no abnormal enhancement to suggest tumor or infection. IMPRESSION: Negative for acute CVA or other acute intracranial process. Mild left maxillary antrum sinus fluid.
--- NOTE | 2021-08-14 18:23 | RAD REPORT ---
EXAM DESCRIPTION: MRI - MRA Head Wo Cont - 08/14/2021 5:56 pm CLINICAL HISTORY: forgetfulness Headache, drowsiness, CVA symptomology COMPARISON: Head Brain Wo Cont dated 08/13/2021 FINDINGS: 3D noncontrast [id number] MR angiography of the [place] was performed. No aneurysm, flow-limiting stenosis or vascular malformation is seen. Forward flow seen in codominant vertebral arteries. The visualized dural venous sinuses appear patent. IMPRESSION: No significant flow abnormality of the [place] is identified.
--- NOTE | 2021-08-14 18:25 | RAD REPORT ---
EXAM DESCRIPTION: MRI - MRA Neck W/Wo Cont - 08/14/2021 5:56 pm CLINICAL HISTORY: forgetfulness Headache, drowsiness, forgetfulness COMPARISON: MRA Neck W/Wo Cont dated 08/07/2021 FINDINGS: Contrast enhance 2D [id number] MR angiography of the neck vessels was performed. Left aortic arch is seen with normal great vessel origins. Significant stenosis involves the right post bulbar internal carotid artery estimated at 90-95% based on NASCET criteria. [id number] left-sided carotid stenosis is also present at the level of the left carotid bulb es timated at 70 percent. Left-sided double plaque appears mildly irregular. Antegrade flow is seen in the vertebral arteries, left-sided mildly dominant IMPRESSION: Bilateral carotid stenosis, reaching 90-95% on the right post bulbar internal carotid ar destiney.
[2021-08-14] MEDS ORDERED: ATORVASTATIN 40 MG TAB PO SCH (21:00)
[2021-08-14] MEDS ORDERED: HOME MED 1 EA UNK (Glimepiride [Glimepiride] 4 MG Tablet) PO SCH (21:00)
[2021-08-15] MEDS: METOPROLOL TAR 25 MG TAB PO SCH ×2 (03:55→16:54)
[2021-08-15] MEDS: ALPRAZOLAM 0.25 MG TABLET PO PRN ×2 (04:06→16:11)
[2021-08-15 04:48] LABS: RBC Red Blood Cell Count 4.35 M/uL (4.33-5.43)
[2021-08-15 04:49] LABS: Absolute Lymphocytes (CBC) 1.4 K/uL (0.7-4.9); Lymphocytes % 21.2 % (15.3-44.8); MPV 7.4 fL (7.6-11.3)
[2021-08-15 05:23] LABS: Albumin 2.9 g/dL (3.4-5.0); Bilirubin Total 0.5 mg/dL (0.2-1.0); Magnesium 2.6 mg/dL (1.8-2.4); Phosphorus 3.6 mg/dL (2.5-4.9); Potassium 3.8 mmol/L (3.5-5.1); Protein, Total 6.4 g/dL (6.4-8.2)
[2021-08-15] MEDS: INSULIN -REGULAR HUMAN 50 UNIT/0.5 ML ML SQ SCH ×2 (07:30→11:30)
[2021-08-15] MEDS ORDERED: ESCITALOPRAM 20 MG TAB PO SCH (09:00)
[2021-08-15] MEDS: SOD CHLORIDE 0.65% NASAL SPRAY NAS SCH ×3 (09:00→16:20)
[2021-08-15] MEDS: FLUTICASONE 50MCG NASAL SPRAY NAS SCH (09:00)
[2021-08-15] MEDS ORDERED: POTASSIUM CL SA 10 MEQ TAB PO ONE (09:00)
[2021-08-15] MEDS ORDERED: ASPIRIN EC 81 MG TAB PO SCH (09:00)
[2021-08-15] MEDS ORDERED: CLOPIDOGREL 75 MG TABLET PO SCH (09:00)
[2021-08-15] MEDS: ASCORBIC ACID 500 MG TABLET PO SCH (09:56)
[2021-08-15] MEDS: GLIMEPIRIDE 2 MG TABLET PO SCH ×2 (09:56→16:11)
[2021-08-15] MEDS: ZINC SULFATE 220 MG CAP PO SCH (09:56)
[2021-08-15 10:49] VITALS: O2SAT 100
--- NOTE | 2021-08-15 14:09 | P.PN ---
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 Patient has a 90% right carotid artery stenosis. Cardiology consultation. Patient may be having TIA symptoms. He could be having psychosomatic issues. Will get Neurology and Cardiology input. EEG pending. Continue arranging for discharge planning. Review of Systems 10-point ROS is otherwise unremarkable Physical Examination - Vital Signs Reviewed - Physical Exam General: Alert, In no apparent distress, Oriented x3 Respiratory: Clear to auscultation bilaterally, Normal air movement Cardiovascular: Regular rate/rhythm, Normal S1 S2 Gastrointestinal: Normal bowel sounds, No tenderness Neurological: Normal speech, Normal tone, Normal affect Assessment & Plan - Problems (Diagnosis) (1) Psychosomatic disorder vs TIA Current Visit: Yes Status: Acute (2) Depression with anxiety Current Visit: Yes Status: Acute (3) Carotid artery disease- 90% right carotid artery stenosis and 70% left carotid artery stenosis Current Visit: Yes Status: Acute Qualifiers: Sinusitis location: unspecified location Chronicity: acute Recurrence: not specified as recurrent Qualified Code(s): J01.90 - Acute sinusitis, unspecified (4) CKD (chronic kidney disease) Current Visit: Yes Status: Chronic Qualifiers: Chronic kidney disease stage: unspecified stage Qualified Code(s): N18.9 - Chronic kidney disease, unspecified (5) DM2 (diabetes mellitus, type 2) Onset Date: 07/17/14 Current Visit: No Status: Chronic Qualifiers: Diabetes mellitus mcfp insulin use: without mcfp use Diabetes mellitus complication status: with kidney complications Diabetes mellitus complication detail: with chronic kidney disease Chronic kidney disease stage: unspecified stage Qualified Code(s): E11.22 - Type 2 diabetes mellitus with diabetic chronic kidney disease (6) HTN (hypertension) Onset Date: 07/17/14 Current Visit: No Status: Chronic Qualifiers: Hypertension type: primary hypertension Qualified Code(s): I10 - Essential (primary) hypertension - Plan Plan: 1. Continue with EEG 2. Anti-platelet and statin therapy 3. Antidepressants and anxiolytics 4. Medication for insomnia 5. Cardiology and neurology consultation pending 6. GI and DVT prophylax Patient is a Jehovah Witness and likes to contact his elders before making any decisions.
--- NOTE | 2021-08-15 17:53 | CON ---
Consultation called because of sleepiness. History Of Present Illness: Mr. Pelayo is a 80-year-old patient with hypertension, dyslip idemia, and diabetes mellitus who comes to [facility] with complaints of shortness of breath . He says this activity is perhaps a month in duration and began after he noted difficulty breathing through the left nostril, which he attributes to sinus issues and plugging of the sinuses with drain age. He said he would breathe in steam or warm air which may help clear the sinuses, but he would go into "panic attacks" because he was not able to catch his breath related to that. He also notes sig nificant anxiety to the point that he could not sleep at night and was worrying himself about that. It should be noted that while he came to [facility] and was hospitalized, his imaging which included a head CT scan showed no acute ischemic or hemorrhagic change. However, there was a large a ir-fluid level in the left maxillary sinus and there was a potential there for acute sinusitis and hi s MRI of the brain showed no acute ischemic or hemorrhagic stroke. However, it did show the left max illary antrum sinus fluid. The more remarkable study was his MRA of the neck, which identified bilat eral carotid stenosis reaching 90% to 95% on the right side. He did have a chest CT scan showing no focal infiltrate and his brain MRA showed no significant flow abnormalities. He did receive aspirin, Plavix, and statin along with Restoril for sleep and he said last night was the best night's sleep h e had and as long as he can remember. He actually requested a 6 month supply of the sleep medication which was told he could not have that. At the time of my evaluation, he did not have any issues in terms of focal deficits in his face, arm and leg. He had no complaints except the sinus issue on the left side and he had not yet seen an ENT physician. Past Medical History: As noted. Past Surgical History: Lithotripsy. Allergies: NO KNOWN DRUG ALLERGIES. Medications: At home; amlodipine 10 mg daily, glimepiride 4 mg daily. Family History: Noncontributory. Social History: No alcohol, tobacco, or IV drug use. Review of Systems: As noted. He has had sinus issues on the left with drainage, anxiety, insomnia. Denies focal defici ts. Denies other positives on a 10 point systems review. Physical Examination: Vital Signs: Blood pressure 183 up to 190/87, his pulse 50 to 72, his temperature 97.7, respiratory rate 16, oxygen saturation 98% on room air. Weight 156 pounds. Height 6 feet 1 inch, BMI 20. General: Mr. Pelayo is resting comfortably. He is in no acute distress. HEENT: He is normocephalic, atraumatic. Sclerae anicteric. Oropharynx is moist and pink. Neck: Supple. Chest: Clear. Heart: Regular. Extremities: Show no edema, cyanosis, or clubbing. Neurologic: He is alert and oriented to person, place, and situation. He has no expressive or silk screen painter tive aphasias. His cranial nerves show no abnormalities on 2 through 12. Motor exam in the upper an d lower extremities 5/5 proximally and distally. Sensory exam intact in upper and lower extremities proximally and distally. Coordination intact in upper and lower extremities proximally and distally. In terms of his gait, the patient ambulated over 800 feet with no obvious gait abnormalities. No s hortness of breath. No abnormalities. He conversed well. He had no difficulty at all with gait. G ait was normal. Laboratory Studies: Complete blood count with differential essentially unremarkable. Coagulation pa khoa is normal. Chemistries did show dehydration. Creatinine 1.39, chloride 110, BUN 19. Glucose ra nged 125 to 176. Calcium 8.7, magnesium 2.6, AST 14, ALT 23, alkaline phosphatase 65, LDL cholestero l 43, HDL 39. Thyroid-stimulating hormone was 0.291, free T4 1.22. Urinalysis unremarkable. COVID- 19 test negative. Influenza A and B negative. RSV, RNA negative. Assessment: Mr. Pelayo is a 80-year-old patient with left maxillary sinusitis, anxiety, insomnia, h ypertension, diabetes, and significant bilateral internal carotid artery stenosis. Plan: 1.Aspirin, Plavix, folic acid, and statin. 2.His blood pressures are elevated probably related to his stenosis in the carotids that should be c arefully lowered but not very precipitously. 3.He should follow up with Dr. Yap, his Cpc Coder for carotid artery angioplasty and stenting procedures as appropriate. 4.He should follow up with the ENT physician for treatment of his significant sinusitis in the left maxillary area. 5.He may follow up with Dr. Valero if need be in 1 month. Otherwise, follow up with his primary c are physician and consider melatonin and trazodone for insomnia. JAYSON/MIRIAM Voice ID: [id number] Report ID: [id number]
[2021-08-19 01:51] VITALS: BP 190/87; TEMP 97.7
--- NOTE | 2021-08-19 01:52 | P.DS ---
Discharge Date: 08/15/21 Disposition: ROUTINE DISCHARGE Discharge Condition: GOOD Reason for Admission: dyspnea, FTT - Problems (1) Psychosomatic disorder Status: Acute (2) Depression with anxiety Status: Acute (3) Sinusitis Status: Acute Qualifiers: Sinusitis location: unspecified location Chronicity: acute Recurrence: not specified as recurrent Qualified Code(s): J01.90 - Acute sinusitis, unspecified (4) CKD (chronic kidney disease) Status: Chronic Qualifiers: Chronic kidney disease stage: unspecified stage Qualified Code(s): N18.9 - Chronic kidney disease, unspecified (5) DM2 (diabetes mellitus, type 2) Onset Date: 07/17/14 Status: Chronic Qualifiers: Diabetes mellitus long term care administrator insulin use: without half-way use Diabetes mellitus complication status: with kidney complications Diabetes mellitus complication detail: with chronic kidney disease Chronic kidney disease stage: unspecified stage Qualified Code(s): E11.22 - Type 2 diabetes mellitus with diabetic chronic kidney disease (6) HTN (hypertension) Onset Date: 07/17/14 Status: Chronic Qualifiers: Hypertension type: primary hypertension Qualified Code(s): I10 - Essential (primary) hypertension Brief History of Present Illness: Mr. Pelayo is a 80 yo M with DM, HTN, CKD3 who presents with one day of weakness and SOB. He says this morning he was too weak to get up. He reports malaise, fatigue and lightheadedness. He reports sinus congestion and allergies that he says are contributing to his symptoms. He says he has had no appetite and increased weight loss over the past 4 months. He reports palpitations at night. Denies fever. Recently discharged for concern for stroke and carotid artery stenosis and told to follow up with cardiology. Has had difficulty scheduling an appointment due to the holidays but has been taking medications as instructed. BUN 19 Cr 1.39 GFR 49 TSH 0.291. Hospital Course: Patient has done well during hospital stay. Patient's psychosomatic issues have improved. Patient has rested during his hospital stay. At this time, patient is stable for discharge home. Vital Signs/Physical Exam: Temp Pulse Resp BP Pulse Ox 97.7 F 72 20 190/87 H 98 08/19/21 01:51 08/19/21 01:51 08/19/21 01:51 08/19/21 01:51 08/19/21 01:51 General: Alert, In no apparent distress, Oriented x3 Laboratory Data at Discharge: WBC 6.60 K/uL (4.3-10.9) 08/15/21 04:14 Hgb 13.5 g/dL (13.6-17.9) L 08/15/21 04:14 Hct 41.0 % (39.6-49.0) 08/15/21 04:14 Plt Count 212 K/uL (152-406) 08/15/21 04:14 PT 11.0 SECONDS (9.5-12.5) 08/13/21 22:25 INR 0.96 08/13/21 22:25 Sodium 141 mmol/L (136-145) 08/15/21 04:14 Potassium 3.8 mmol/L (3.5-5.1) 08/15/21 04:14 BUN 19 mg/dL (7-18) H 08/15/21 04:14 Creatinine 1.39 mg/dL (0.55-1.3) H 08/15/21 04:14 Glucose 150 mg/dL (74-106) H 08/15/21 04:14 Phosphorus 3.6 mg/dL (2.5-4.9) 08/15/21 04:14 Magnesium 2.6 mg/dL (1.8-2.4) H 08/15/21 04:14 Total Bilirubin 0.5 mg/dL (0.2-1.0) 08/15/21 04:14 AST 14 U/L (15-37) L 08/15/21 04:14 ALT 23 U/L (12-78) 08/15/21 04:14 Alkaline Phosphatase 65 U/L (45-117) 08/15/21 04:14 Triglycerides 117 mg/dL (<150) 08/15/21 04:14 Cholesterol 105 mg/dL (<200) 08/15/21 04:14 HDL Cholesterol 39 mg/dL (40-60) L 08/15/21 04:14 Cholesterol/HDL Ratio 2.69 08/15/21 04:14 Home Medications: Aspirin [Aspirin EC 81 MG] 81 mg PO DAILY #30 tablet.dr 07/22/21 Nitroglycerin [Nitrostat*] 0.4 mg SL UD PRN #30 tab 07/22/21 Atorvastatin Calcium [Lipitor] 40 mg PO BEDTIME 30 Days #30 tab 08/07/21 Clopidogrel Bisulfate [Plavix*] 75 mg PO DAILY 30 Days #30 tablet 08/07/21 Glimepiride 4 mg PO BID 30 Days #60 tab 08/07/21 Metoprolol Tartrate [Lopressor*] 25 mg PO BID 6AM 6PM 30 Days #60 tab 08/07/21 ALPRAZolam [Xanax*] 0.25 mg PO TID PRN #30 tab 08/15/21 Benzonatate [Tessalon Perle*] 100 mg PO TID PRN #30 cap 08/15/21 Escitalopram [Lexapro*] 10 mg PO DAILY #30 tab 08/15/21 Melatonin 5 mg PO BEDTIME PRN PRN #30 tablet 08/15/21 Temazepam [Restoril*] 15 mg PO BEDTIME PRN PRN #30 cap 08/15/21 Zinc Sulfate [Zinc Sulfate*] 220 mg PO DAILY #30 cap 08/15/21 New Medications: Escitalopram [Lexapro*] 10 mg PO DAILY #30 tab Melatonin 5 mg PO BEDTIME PRN PRN #30 tablet PRN Reason: Insomnia Temazepam [Restoril*] 15 mg PO BEDTIME PRN PRN #30 cap PRN Reason: Insomnia Benzonatate [Tessalon Perle*] 100 mg PO TID PRN #30 cap PRN Reason: Cough ALPRAZolam [Xanax*] 0.25 mg PO TID PRN #30 tab PRN Reason: Anxiety Zinc Sulfate [Zinc Sulfate*] 220 mg PO DAILY #30 cap Physician Discharge Instructions: OK TO DC IV AND DC HOME FOLLOW-UP WITH PRIMARY CARE PROVIDER IN 1-2 WEEKS FOLLOW-UP WITH CARDIOLOGY IN 1-2 WEEKS RETURN TO THE ER IF symptoms worsens CALL or TEXT DR. GOTTI AT [phone] IF ANY QUESTIONS REGARDING HOSPITAL STAY. PLEASE CALL THE FLOOR AT [phone] IF ANY MEDICATION OR NURSING QUESTIONS. Diet: ADA Activity: Fall precautions Followup: [facility] [Provider Group] - 1-2 Weeks (call to schedule an appointment ) Mary Lou Munroe DOh H, DO [ACTIVE - CAN ADMIT] - 1-2 Weeks (call to schedule an appointment ) Time spent managing pt's care (in minutes): 35
--- NOTE | 2021-08-20 14:52 | EEG ---
CHART: [id number] TEST ID#: [id number] DATE OF STUDY: 08/15/2021 THE EEG WAS RECORDED PORTABLE IN THE PATIENT'S ROOM ON A 17 CHANNEL MACHINE. ELECTRODES WERE APPLIED IN THE USUAL MANNER USING THE INTERNATIONAL 10-20 SYSTEM. THE WAKING BACKGROUND RHYTHM IN THIS RECORD CONSISTS OF FAIRLY WELL DEVELOPED AND FAIRLY WELL ORGANIZED WAVES OF 10 HZ., MAXIMAL IN THE POSTERIOR HEAD REGIONS WHICH ATTENUATE NORMALLY WITH EYE OPENING. LOW-VOLTAGE 18-22 HZ ACTIVITY IS EXPRESSED IN THE FRONTAL REGIONS. THERE ARE NO FOCAL OR LATERALIZING FEATURES. NO EPILEPTIFORM ACTIVITY APPEARS. SLEEP OCCURRED NATURALLY. IN ADDITION TO NORMAL SLEEP PATTERNS ARE PRESENT. HYPERVENTILATION WAS NOT PERFORMED. PHOTIC STIMULATION PRODUCED POOR DRIVING BILATERALLY. IMPRESSION: NORMAL EEG FOR THE AGE OF THE PATIENT IN [place], DROWSINESS AND SLEEP.
== END 2021-08-15 19:05 | disposition home or self-care (01) ==
LOC: ER 20:00 → ERHOLD 08-14 02:38 → 2ND 08-14 02:48
PROVIDERS: ADMIT Hospitalist; ATTEND Hospitalist
DX: F45.9 Somatoform disorder, unspecified (principal); F41.8 Other specified anxiety disorders; J01.00 Acute maxillary sinusitis, unspecified; R06.00 Dyspnea, unspecified; G47.00 Insomnia, unspecified; I65.23 Occlusion and stenosis of bilateral carotid arteries; I12.9 Hypertensive chronic kidney disease with stage 1 through stage 4 chronic kidney disease, or unspecified chronic kidney disease; E11.22 Type 2 diabetes mellitus with diabetic chronic kidney disease; N18.9 Chronic kidney disease, unspecified; R05.9 Cough, unspecified; E78.5 Hyperlipidemia, unspecified; Z20.822 Contact with and (suspected) exposure to COVID-19; Z79.02 Long term (current) use of antithrombotics/antiplatelets; Z79.82 Long term (current) use of aspirin; Z79.899 Other long term (current) drug therapy; Z82.0 Family history of epilepsy and other diseases of the nervous system
CPT/HCPCS: 93005; 95819; 85025 ×2; 80048; 36415 ×2; 83735 ×2; 84100; 85610; 80061; 82947 ×6; 80076; 84443; 81003; 84484; 84439; 80053; 83880; 0241U; 70450; 71250; 71045; 70553; 70544; 70549; 97116; 97161; 94760 ×4; 99285; A9577; G0378 ×3

== ENCOUNTER 2021-08-23 10:46 | Emergency (ER) | payer OTHER ==
--- NOTE | 2021-08-23 12:06 | ER ---
Nurse's Notes [facility] Name: Yeyo Pelayo Age: 80 yrs Sex: Male : 1940 Arrival Date: 08/23/2021 Time: 10:49 Bed Waiting Private MD: Lalo Munroe H Diagnosis: Anxiety disorder, unspecified Presentation: 08/23 11:57 Chief complaint: Patient states: i was discharged on 08/15/21 with Xanax 0.25 mg three tw2 times a day as need for anxiety and we are out. Spouse and/or significant other states: he needs it 3 times a day. and Dr. Munroe's office is close and no one answers. 12:04 Coronavirus screen: At this time, the client does not indicate any symptoms associated tw2 with coronavirus-19. Ebola Screen: Patient denies travel to an Ebola-affected area in the 21 days before illness onset. Initial Sepsis Screen: Does the patient meet any 2 criteria? No. Patient's initial sepsis screen is negative. Does the patient have a suspected source of infection? No. Patient's initial sepsis screen is negative. Risk Assessment: Do you want to hurt yourself or someone else? Patient reports no desire to harm self or others. Onset of symptoms was August 23, 2021. 12:04 Method Of Arrival: Ambulatory tw2 12:04 Acuity: KEN 5 tw2 Triage Assessment: 12:00 General: Appears in no apparent distress. Behavior is calm, cooperative, appropriate tw2 for age. Pain: Denies pain. 12:04 Neuro: Level of Consciousness is awake, alert, obeys commands, Oriented to person, tw2 place, time, situation. Respiratory: Airway is patent Trachea Respiratory effort is even, unlabored, Respiratory pattern is regular, symmetrical. Historical: - Allergies: 12:01 No Known Drug Allergies; tw2 - Home Meds: 12:01 escitalopram oxalate 20 mg oral tab 1 tab once daily [Active]; metoprolol tartrate 25 tw2 mg Oral tab 1 tab 2 times per day [Active]; glimepiride 4 mg Oral tab 1 tab once daily [Active]; clopidogrel 75 mg oral tab 1 tab once daily [Active]; zinc sulfate 220 mg Oral cap [Active]; - PMHx: 12:01 Diabetes - NIDDM; Hypertension; Kidney stones; tw2 - PSHx: 12:01 Lithotripsy; tw2 - Immunization history:: Adult Immunizations. - Social history:: Smoking status: . Screenin:04 Abuse screen: Denies threats or abuse. Nutritional screening: No deficits noted. tw2 Tuberculosis screening: No symptoms or risk factors identified. Fall Risk Secondary diagnosis (15 points) impaired mobility. Assessment: 12:04 Reassessment: provider in triage exam room at this time. tw2 12:28 Reassessment: Patient appears in no apparent distress at this time. No changes from tw2 previously documented assessment. Patient and/or family updated on plan of care and expected duration. Pain level reassessed. Patient is alert, oriented x 3, equal unlabored respirations, skin warm/dry/pink. Vital Signs: 12:00 BP 143 / 83; Pulse 56; Resp 17; Temp 97.2; Pulse Ox 99% on R/A; tw2 ED Course: 10:49 Patient arrived in ED. as 10:49 Lalo Munroe DO is Private Physician. as 12:00 Arm band placed on. tw2 12:05 Bk Palomares PA is PHCP. jr8 12:05 Yarelis Aden MD is Attending Physician. jr8 12:05 Triage completed. tw2 12:05 Lalo Munroe DO is Referral Physician. jr8 12:05 Adult w/ patient. tw2 12:05 No provider procedures requiring assistance completed. Patient did not have IV access tw2 during this emergency room visit. Administered Medications: No medications were administered Outcome: 12:05 Discharge ordered by . jr8 12:07 Discharged to home ambulatory, with significant other. tw2 12:07 Condition: stable 12:07 Discharge instructions given to patient, significant other, Instructed on discharge instructions, follow up and referral plans. medication usage, Demonstrated understanding of instructions, follow-up care, medications, Prescriptions given X 1. 12:29 Patient left the ED. tw2 Signatures: Kendal Nguyen Josh, PA PA jr8 Sonja Conner RN RN tw2 Corrections: (The following items were deleted from the chart) 12:29 12:07 Instructed on the need for admit, tw2 tw2
--- NOTE | 2021-08-23 12:06 | EDPHYS ---
Physician Documentation [facility] Name: Yeyo Pelayo Age: 80 yrs Sex: Male : 1940 Arrival Date: 08/23/2021 Time: 10:49 Bed Waiting Private MD: Lalo Munroe H ED Physician Yarelis Aden HPI: 08/23 12:12 This 80 yrs old Male presents to ER via Ambulatory with complaints of Medication Refill.jr8 12:12 The patient has been recently seen by a physician:. Patient came to ED for medication jr8 refill of his xanax. Was recently released from hospital and put on xanax for anxiety along with lexapro. Stated that he ran out of his med and could not get into PCP for refill. Has only been on xanax for the past week. Still having mild anxiety . Historical: - Allergies: 12:01 No Known Drug Allergies; tw2 - Home Meds: 12:01 escitalopram oxalate 20 mg oral tab 1 tab once daily [Active]; metoprolol tartrate 25 tw2 mg Oral tab 1 tab 2 times per day [Active]; glimepiride 4 mg Oral tab 1 tab once daily [Active]; clopidogrel 75 mg oral tab 1 tab once daily [Active]; zinc sulfate 220 mg Oral cap [Active]; - PMHx: 12:01 Diabetes - NIDDM; Hypertension; Kidney stones; tw2 - PSHx: 12:01 Lithotripsy; tw2 - Immunization history:: Adult Immunizations. - Social history:: Smoking status: . ROS: 12:12 Constitutional: Negative for fever, chills, and weight loss, Cardiovascular: Negative jr8 for chest pain, palpitations, and edema, Respiratory: Negative for shortness of breath, cough, wheezing, and pleuritic chest pain, Neuro: Negative for headache, weakness, numbness, tingling, and seizure. 12:12 Psych: Positive for anxiety, Negative for suicide gesture, suicidal ideation. 12:12 All other systems are negative. Exam: 12:12 Constitutional: This is a well developed, well nourished patient who is awake, alert, jr8 and in no acute distress. Cardiovascular: Regular rate and rhythm with a normal S1 and S2. No gallops, murmurs, or rubs. Normal PMI, no JVD. No pulse deficits. Respiratory: Lungs have equal breath sounds bilaterally, clear to auscultation and percussion. No rales, rhonchi or wheezes noted. No increased work of breathing, no retractions or nasal flaring. Abdomen/GI: Soft, non-tender, with normal bowel sounds. No distension or tympany. No guarding or rebound. No evidence of tenderness throughout. Skin: Warm, dry with normal turgor. Normal color with no rashes, no lesions, and no evidence of cellulitis. MS/ Extremity: Pulses equal, no cyanosis. Neurovascular intact. Full, normal range of motion. Neuro: Awake and alert, GCS 15, oriented to person, place, time, and situation. Cranial nerves II-XII grossly intact. Motor strength 5/5 in all extremities. Sensory grossly intact. Vital Signs: 12:00 BP 143 / 83; Pulse 56; Resp 17; Temp 97.2; Pulse Ox 99% on R/A; tw2 MDM: 12:05 Patient medically screened. jr8 12:12 Data reviewed: vital signs, nurses notes, and as a result, I will discharge patient. jr8 Data interpreted: Pulse oximetry: on room air is 99 %. Interpretation: normal. Counseling: I had a detailed discussion with the patient and/or guardian regarding: the historical points, exam findings, and any diagnostic results supporting the discharge/admit diagnosis, the need for outpatient follow up, a family practitioner, to return to the emergency department if symptoms worsen or persist or if there are any questions or concerns that arise at home. ED course: Discussed with patient that benzodiazepines are habit forming and they gave him limited supply for a reason. Will switch him to hydroxizine and needs to see PCP for f/u. That it will take lexapro at least a few weeks to gain a steady state. Patient good with this and will continue to follow up with Dr. Munroe. Administered Medications: No medications were administered Disposition Summary: 08/23/21 12:05 Discharge Ordered Location: Home jr8 Problem: new jr8 Symptoms: have improved jr8 Condition: Stable jr8 Diagnosis - Anxiety disorder, unspecified jr8 Followup: jr8 - With: Lalo Munroe DO - When: 2 - 3 days - Reason: Recheck today's complaints, Continuance of care, Re-evaluation by your physician Discharge Instructions: - Discharge Summary Sheet jr8 - Panic Attack jr8 Forms: - Medication Reconciliation Form jr8 - Thank You Letter jr8 - Antibiotic Education jr8 - Prescription Opioid Use jr8 Prescriptions: - Hydroxyzine HCl 50 mg Oral Tablet - take 1 tablet by ORAL route every 8 hours As needed; 20 tablet; Refills: 0, jr8 Product Selection Permitted Addendum: 08/25/2021 16:21 Co-signature as Attending Physician, Yarelis Aden MD I agree with the assessment and s p3 plan of care. Signatures: Bk Palomares PA PA jr8 Sonja Conner RN RN tw2 Yarelis Aden MD MD sp3
[2021-08-23 12:33] VITALS: BP 143/83; TEMP 97.2; O2SAT 99
== END 2021-08-23 12:29 | disposition home or self-care (01) ==
LOC: ER 10:46
DX: F41.9 Anxiety disorder, unspecified (principal); Z76.0 Encounter for issue of repeat prescription; E11.9 Type 2 diabetes mellitus without complications; I10 Essential (primary) hypertension
CPT/HCPCS: 99282

== ENCOUNTER 2022-09-23 14:10 | Emergency (ER) | payer OTHER ==
--- NOTE | 2022-09-23 15:13 | RAD REPORT ---
EXAM DESCRIPTION: RAD - Foot Left 3 View - 09/23/2022 3:02 pm CLINICAL HISTORY: SWELLING COMPARISON: No comparisons FINDINGS: Soft tissue swelling is seen particularly the medial forefoot. Diffuse osteopenia. No acut e fracture seen. Small calcaneal spurs.
--- NOTE | 2022-09-23 15:16 | RAD REPORT ---
EXAM DESCRIPTION: RAD - Foot Right 3 View - 09/23/2022 3:02 pm CLINICAL HISTORY: foot pain Pain and swelling COMPARISON: No comparisons FINDINGS: Mild soft tissue swelling is seen along the forefoot. Diffuse osteopenia noted. Small calc aneal spurs.
[2022-09-23 15:23] LABS: Absolute Lymphocytes (CBC) 1.4 K/uL (0.7-4.9); Hematocrit 38.1 % (39.6-49.0); Lymphocytes % 16.2 % (15.3-44.8); MCV 91.1 fL (80-100); MPV 7.6 fL (7.6-11.3); RBC Red Blood Cell Count 4.18 M/uL (4.33-5.43)
--- NOTE | 2022-09-23 15:54 | RAD REPORT ---
EXAM DESCRIPTION: US - Extrem Venous W Compress Bob - 09/23/2022 3:48 pm CLINICAL HISTORY: SWELLING Bilateral leg edema and swelling. COMPARISON: Upper Lower Extrem Art Multi dated 07/22/2021 TECHNIQUE: Real-time sonographic interrogation of the left and right lower extremity deep venous sys tems was performed. FINDINGS: Normal compressibility, flow augmentation, phasic flow and spontaneous flow is identified in both the left and right lower extremity deep venous systems. IMPRESSION: No sonographic evidence of left or right lower extremity deep venous thrombosis.
[2022-09-23 15:56] LABS: Albumin 3.3 g/dL (3.4-5.0); Bilirubin Total 0.4 mg/dL (0.2-1.0); Potassium 3.8 mmol/L (3.5-5.1); Protein, Total 8.2 g/dL (6.4-8.2)
--- NOTE | 2022-09-23 18:21 | ER ---
Nurse's Notes [facility] Name: Yeyo Pelayo Age: 82 yrs Sex: Male : 1940 Arrival Date: 09/23/2022 Time: 14:14 Bed 17 Private MD: Diagnosis: Gout, unspecified Presentation: 09/23 14:30 Chief complaint: Patient states: Pain to left foot X 3 weeks. Pt reports redness and ld1 swelling to left foot - pt states "I am diabetic.". Coronavirus screen: At this time, the client does not indicate any symptoms associated with coronavirus-19. Ebola Screen: No symptoms or risks identified at this time. Initial Sepsis Screen: Does the patient meet any 2 criteria? No. Patient's initial sepsis screen is negative. Does the patient have a suspected source of infection? No. Patient's initial sepsis screen is negative. Risk Assessment: Do you want to hurt yourself or someone else? Patient reports no desire to harm self or others. Onset of symptoms was September 23, 2022. 14:30 Method Of Arrival: Ambulatory ld1 14:30 Acuity: KEN 3 ld1 Triage Assessment: 14:28 General: Appears in no apparent distress. comfortable, Behavior is calm, cooperative, ld1 appropriate for age. Pain: Complains of pain in left foot Pain does not radiate. Pain at worst was 4 out of 10 on a pain scale. Quality of pain is described as throbbing, Pain began suddenly, Is continuous. EENT: No signs and/or symptoms were reported regarding the EENT system. Neuro: Level of Consciousness is awake, alert, obeys commands, Oriented to person, place, time, situation. Cardiovascular: Capillary refill < 3 seconds Patient's skin is warm and dry. Respiratory: Airway is patent Respiratory effort is even, unlabored. GI: Abdomen is flat, non-distended. : No signs and/or symptoms were reported regarding the genitourinary system. Derm: No signs and/or symptoms reported regarding the dermatologic system. Musculoskeletal: No signs and/or symptoms reported regarding the musculoskeletal system. Historical: - Allergies: 14:28 No Known Allergies; ld1 - PMHx: 14:28 Diabetes - NIDDM; Hypertension; Kidney stones; ld1 - PSHx: 14:28 Lithotripsy; ld1 - Immunization history:: Adult Immunizations up to date, Client reports receiving the 2nd dose of the Covid vaccine. - Social history:: Smoking status: Patient denies any tobacco usage or history of. Patient/guardian denies using alcohol. Screenin:11 [facility] ED Fall Risk Assessment (Adult) History of falling in the last 3 months, ap3 including since admission No falls in past 3 months (0 pts). Abuse screen: Denies threats or abuse. Nutritional screening: No deficits noted. Tuberculosis screening: No symptoms or risk factors identified. Assessment: 18:19 Reassessment: Patient and/or family updated on plan of care and expected duration. Pain ap3 level reassessed. Patient is alert, oriented x 3, equal unlabored respirations, skin warm/dry/pink. Vital Signs: 14:28 BP 181 / 70; Pulse 67; Resp 18; Temp 97.9(O); Pulse Ox 99% on R/A; Weight 79.83 kg; ld1 Height 6 ft. 1 in. (185.42 cm); Pain 4/10; 16:01 BP 174 / 69; Pulse 64; Pulse Ox 100% on R/A; ap3 17:04 BP 147 / 63; Pulse 67; Pulse Ox 99% on R/A; ap3 14:28 Body Mass Index 23.22 (79.83 kg, 185.42 cm) ld1 ED Course: 14:14 Patient arrived in ED. as 14:27 Bob Whatley PA is PHCP. [facility] 14:27 Yarelis Aden MD is Attending Physician. [facility] 14:28 Arm band placed on right wrist. ld1 14:31 Triage completed. ld1 14:45 Altagracia Toscano, CACHORRO is Primary Nurse. ap3 15:04 Foot Left 3 View XRAY In Process Unspecified. EDMS 15:04 Foot Right 3 View XRAY In Process Unspecified. EDMS 15:11 Blood Culture Adult (2) Sent. ap3 15:11 Lactate w/ 2H reflex if indic. Sent. ap3 15:11 CMP Sent. ap3 15:11 CBC with Diff Sent. ap3 15:11 Inserted saline lock: 22 gauge in left antecubital area, using aseptic technique. Blood ap3 collected. 15:12 Patient has correct armband on for positive identification. Placed in gown. Bed in low ap3 position. Call light in reach. Side rails up X2. Pulse ox on. NIBP on. Door closed. Noise minimized. 15:50 US Extremity Venous W Compression Bob In Process Unspecified. EDMS 18:19 No provider procedures requiring assistance completed. IV discontinued, intact, ap3 bleeding controlled, No redness/swelling at site. Pressure dressing applied. 18:21 Jeff Garcia DPM is Referral Physician. danya Administered Medications: 15:56 Not Given (Physician Discretion): NS 0.9% 1000 ml IV at 1000 ml once ap3 15:56 Not Given (Physician Discretion): vancoMYCIN 1 grams IVPB once over 2 hrs ap3 15:56 Not Given (Physician Discretion): Doxycycline 100 mg PO once ap3 Medication: 15:12 VIS not applicable for this client. ap3 Outcome: 18:21 Discharge ordered by . danya 18:26 Discharged to home ambulatory. ap3 18:26 Condition: good 18:26 Discharge instructions given to patient, Instructed on discharge instructions, follow up and referral plans. medication usage, Demonstrated understanding of instructions, follow-up care, medications, Prescriptions given X 1. 18:27 Patient left the ED. ap3 Signatures: Dispatcher [employer] EDMS Bob Whatley PA PA jmm Martinez, Amelia as Prokisch, Amanda RN RN ap3 Paris Rosa RN RN ld1
--- NOTE | 2022-09-23 18:22 | EDPHYS ---
Physician Documentation [facility] Name: Yeyo Pelayo Age: 82 yrs Sex: Male : 1940 Arrival Date: 09/23/2022 Time: 14:14 Bed 17 Private MD: ED Physician Yarelis Aden HPI: 09/23 14:32 This 82 yrs old Male presents to ER via Ambulatory with complaints of Foot Pain - jmm redness/swelling. 14:32 The patient presents with pain, that is acute. The complaints affect the dorsum of left jmm foot. Onset: The symptoms/episode began/occurred gradually, 1 week(s) ago. Modifying factors: The symptoms are alleviated by nothing. the symptoms are aggravated by nothing. Is an 82-year-old male with history of diabetes mellitus, hypertension the presents emerged part with complaints of left and right foot pain. More pronounced on the left foot. Denies fever. Denies injury. Patient states he does have a history of gout as well.. Historical: - Allergies: 14:28 No Known Allergies; ld1 - PMHx: 14:28 Diabetes - NIDDM; Hypertension; Kidney stones; ld1 - PSHx: 14:28 Lithotripsy; ld1 - Immunization history:: Adult Immunizations up to date, Client reports receiving the 2nd dose of the Covid vaccine. - Social history:: Smoking status: Patient denies any tobacco usage or history of. Patient/guardian denies using alcohol. ROS: 14:32 Constitutional: Negative for fever, chills, and weight loss, Cardiovascular: Negative jmm for chest pain, palpitations, and edema, Respiratory: Negative for shortness of breath, cough, wheezing, and pleuritic chest pain. 14:32 Skin: Positive for erythema. 14:32 All other systems are negative. Exam: 14:32 Constitutional: This is a well developed, well nourished patient who is awake, alert, jmm and in no acute distress. Head/Face: atraumatic. Eyes: EOMI, no conjunctival erythema appreciated ENT: Moist Mucus Membranes Neck: Trachea midline, Supple Chest/axilla: Normal chest wall appearance and motion. Cardiovascular: Regular rate and rhythm. No edema appreciated Respiratory: Normal respirations, no respiratory distress appreciated Abdomen/GI: Non distended Back: Normal ROM 14:32 Musculoskeletal/extremity: Full range of motion noted to the left ankle, full dorsalis pedis pulse noted, compartments are soft, neurovascular intact. 14:32 Skin: Erythema noted to the left foot, particular to the first MTP. 14:32 Neuro: Orientation: is normal, Mentation: is normal, Memory: is normal. 14:32 Psych: Behavior/mood is pleasant, cooperative. Vital Signs: 14:28 BP 181 / 70; Pulse 67; Resp 18; Temp 97.9(O); Pulse Ox 99% on R/A; Weight 79.83 kg; ld1 Height 6 ft. 1 in. (185.42 cm); Pain 4/10; 16:01 BP 174 / 69; Pulse 64; Pulse Ox 100% on R/A; ap3 17:04 BP 147 / 63; Pulse 67; Pulse Ox 99% on R/A; ap3 14:28 Body Mass Index 23.22 (79.83 kg, 185.42 cm) ld1 MDM: 14:32 Patient medically screened. [facility] 18:20 Data reviewed: vital signs, nurses notes. I considered the following discharge [facility] prescriptions or medication management in the emergency department Medications were administered in the Emergency Department. See MAR. Independent interpretation of the following test(s) in the Emergency Department X-Ray: My interpretation is No fracture appreciated. Counseling: I had a detailed discussion with the patient and/or guardian regarding: the historical points, exam findings, and any diagnostic results supporting the discharge/admit diagnosis, radiology results, the need for outpatient follow up, to return to the emergency department if symptoms worsen or persist or if there are any questions or concerns that arise at home. ED course: Patient is alert nontoxic in appearance in the ED. Labs are unremarkable. I do not Suspect cellulitis. I do not currently suspect septic joint.. 09/23 14:33 Order name: CBC with Diff [facility] 09/23 14:33 Order name: CMP; Complete Time: 15:57 [facility] 09/23 14:33 Order name: Lactate w/ 2H reflex if indic.; Complete Time: 15:54 [facility] 09/23 14:33 Order name: Blood Culture Adult (2) [facility] 09/23 14:33 Order name: US Extremity Venous W Compression Bob; Complete Time: 15:57 [facility] 09/23 14:34 Order name: Foot Left 3 View XRAY; Complete Time: 15:19 [facility] 09/23 14:33 Order name: Saline Lock; Complete Time: 15:11 [facility] 09/23 14:34 Order name: Foot Right 3 View XRAY; Complete Time: 15:19 [facility] Administered Medications: 15:56 Not Given (Physician Discretion): NS 0.9% 1000 ml IV at 1000 ml once ap3 15:56 Not Given (Physician Discretion): vancoMYCIN 1 grams IVPB once over 2 hrs ap3 15:56 Not Given (Physician Discretion): Doxycycline 100 mg PO once ap3 Disposition Summary: 09/23/22 18:21 Discharge Ordered Location: Home [facility] Condition: Stable [facility] Diagnosis - Gout, unspecified jm Followup: [facility] - With: Jeff Garcia DPM - When: 2 - 3 days - Reason: Recheck today's complaints, Continuance of care, Re-evaluation by your physician Discharge Instructions: - Discharge Summary Sheet [facility] - Gout [facility] - Low-Purine Eating Plan [facility] Forms: - Medication Reconciliation Form [facility] - Thank You Letter [facility] - Antibiotic Education [facility] - Prescription Opioid Use [facility] Prescriptions: - Pepcid 20 mg Oral Tablet - take 1 tablet by ORAL route every 12 hours for 10 days; 20 tablet; Refills: 0, [facility] Product Selection Permitted - Diclofenac Sodium 75 mg Oral Tablet Sustained Release - take 1 tablet by ORAL route 2 times per day; 30 tablet; Refills: 0, Product [facility] Selection Permitted Signatures: Dispatcher [employer] Bob Lind PA PA Paris Gonzalez RN RN ld1 Altagracia Toscano RN ap3
[2022-09-23 19:19] VITALS: TEMP 97.9
[2022-09-23 19:21] VITALS: BP 147/63; O2SAT 99
[2022-09-23 20:18] LABS: Blood Morphology Comment NOT SEEN (NOT SEEN); Platelet Estimate ADEQ
[2022-09-23 20:20] LABS: White Blood Cell Scan OK (OK)
== END 2022-09-23 18:27 | disposition home or self-care (01) ==
LOC: ER 14:10
DX: M10.9 Gout, unspecified (principal); E11.9 Type 2 diabetes mellitus without complications; I10 Essential (primary) hypertension; Z87.442 Personal history of urinary calculi
CPT/HCPCS: 36415; 80053; 83605; 85025; 87040; 93970

== ENCOUNTER 2022-10-06 01:24 | Emergency (ER) | payer OTHER ==
[2022-10-06] MEDS ORDERED: ONDANSETRON 4 MG/2 ML VIAL ONE (02:05)
[2022-10-06] MEDS ORDERED: MORPHINE 4 MG/ML SYR ONE (02:05)
[2022-10-06 02:23] LABS: Urine Blood Trace-intact (Negative); Urine Glucose Negative (Negative); Urine Protein Negative (Negative); Urine pH 5.5 (5.0-7.0)
[2022-10-06 02:40] LABS: Absolute Lymphocytes (CBC) 1.7 K/uL (0.7-4.9); Hematocrit 39.6 % (39.6-49.0); Lymphocytes % 26.1 % (15.3-44.8); MCV 91.7 fL (80-100); MPV 7.6 fL (7.6-11.3); RBC Red Blood Cell Count 4.32 M/uL (4.33-5.43)
[2022-10-06 02:58] LABS: Albumin 3.4 g/dL (3.4-5.0); Bilirubin Total 0.3 mg/dL (0.2-1.0); Potassium 3.8 mmol/L (3.5-5.1)
[2022-10-06 03:00] LABS: Urine Bacteria None Seen /HPF (<20); Urine RBC <5 /HPF (None Seen)
--- NOTE | 2022-10-06 03:47 | ER ---
Nurse's Notes [facility] Name: Yeyo Pelayo Age: 82 yrs Sex: Male : 1940 Arrival Date: 10/06/2022 Time: 01:29 Bed 13 Private MD: Diagnosis: Low back pain;Hematuria, unspecified Presentation: 10/06 01:48 Chief complaint: Patient states: C/o low back and groin pain /10, and trouble ll3 urinating since last night before bed. Coronavirus screen: Vaccine status: Patient reports receiving the 2nd dose of the covid vaccine. At this time, the client does not indicate any symptoms associated with coronavirus-19. Ebola Screen: No symptoms or risks identified at this time. Initial Sepsis Screen: Does the patient meet any 2 criteria? No. Patient's initial sepsis screen is negative. Does the patient have a suspected source of infection? No. Patient's initial sepsis screen is negative. Risk Assessment: Do you want to hurt yourself or someone else? Patient reports no desire to harm self or others. Onset of symptoms was October 05, 2022. 01:48 Method Of Arrival: Ambulatory ll3 01:48 Acuity: KEN 3 ll3 Triage Assessment: 02:47 General: Appears in no apparent distress. Behavior is appropriate for age. ke1 Historical: - Allergies: 01:49 No Known Allergies; ll3 - Home Meds: 01:49 Unable to obtain [Active]; ll3 - PMHx: 01:49 Diabetes - NIDDM; Hypertension; Kidney stones; ll3 - PSHx: 01:49 Lithotripsy; ll3 - Immunization history:: Client reports receiving the 2nd dose of the Covid vaccine. - Social history:: Smoking status: Patient denies any tobacco usage or history of. - Family history:: not pertinent. Screenin:47 [facility] ED Fall Risk Assessment (Adult) History of falling in the last 3 months, ke1 including since admission No falls in past 3 months (0 pts) Confusion or Disorientation No (0 pts) Intoxicated or Sedated No (0 pts) Impaired Gait No (0 pts) Mobility Assist Device Used Yes (1 pt) Altered Elimination No (0 pt) Score/Fall Risk Level 0 - 2 = Low Risk. Abuse screen: Denies threats or abuse. Nutritional screening: No deficits noted. Tuberculosis screening: No symptoms or risk factors identified. Assessment: 02:00 Pain: Complains of pain in back. ke1 02:45 Reassessment: Bladder scan 177 ml, prior to that patient voided 120 cc for urine dip. ke1 Vital Signs: 01:48 BP 189 / 92; Pulse 69; Resp 18; Temp 98.2(O); Pulse Ox 100% on R/A; Weight 79.83 kg ll3 (R); Height 6 ft. 1 in. (185.42 cm) (R); Pain 9/10; 04:02 BP 158 / 96; Pulse 70; Resp 17; Temp 98.2; Pulse Ox 100% ; Pain 0/10; ke1 01:48 Body Mass Index 23.22 (79.83 kg, 185.42 cm) ll3 ED Course: 01:29 Patient arrived in ED. jj6 01:31 Canelo Ritchie MD is Attending Physician. rt 01:35 Franco Gutierrez, CACHORRO is Primary Nurse. ke1 01:49 Triage completed. ll3 01:49 Arm band placed on Patient placed in an exam room, on a stretcher, on pulse oximetry. ll3 02:00 Patient has correct armband on for positive identification. ke1 02:10 Inserted saline lock: 20 gauge in left forearm, using aseptic technique. ke1 02:26 CBC with Diff Sent. ke1 02:26 CMP Sent. ke1 02:26 Urine Microscopic Only Sent. ke1 03:46 Seferino Phillip MD is Referral Physician. rt 04:01 No provider procedures requiring assistance completed. ke1 04:02 IV discontinued. ke1 Administered Medications: 02:11 Drug: morphine 4 mg Route: IVP; Infused Over: 4 mins; Site: left forearm; ke1 02:49 Follow up: Response: Pain is decreased ke1 02:11 Drug: Zofran (Ondansetron) 4 mg Route: IVP; Site: left forearm; ke1 02:49 Follow up: Response: Marked relief of symptoms ke1 Medication: 04:02 VIS not applicable for this client. ke1 Outcome: 03:46 Discharge ordered by . rt 04:02 Discharged to home ambulatory. ke1 04:02 Condition: good 04:02 Discharge instructions given to patient. 04:03 Patient left the ED. ke1 Signatures: Helen Benton jj6 Niurka Villar RN RN ll3 Franco Gutierrez RN RN ke1 Canelo Ritchie MD MD rt
--- NOTE | 2022-10-06 03:47 | EDPHYS ---
Physician Documentation [facility] Name: Yeyo Pelayo Age: 82 yrs Sex: Male : 1940 Arrival Date: 10/06/2022 Time: 01:29 Bed 13 Private MD: ED Physician Canelo Ritchie HPI: 10/06 04:31 This 82 yrs old Male presents to ER via Ambulatory with complaints of Low Back Pain, rt Urinary Retention. 04:31 Patient with prior history of kidney stones as well as BPH with episodes of urinary rt retention and chronic low back pain presents to the ED with a low back pain. Patient states that he believes that he has a kidney stone. This pain started this evening. Patient states that he is unable to completely empty his bladder. He denies incontinence, saddle anesthesia. He denies injury. He denies other acute complaints at this time. Symptoms are moderate in severity, no other aggravating or alleviating factors.. Historical: - Allergies: 01:49 No Known Allergies; ll3 - Home Meds: :49 Unable to obtain [Active]; ll3 - PMHx: 01:49 Diabetes - NIDDM; Hypertension; Kidney stones; ll3 - PSHx: 01:49 Lithotripsy; ll3 - Immunization history:: Client reports receiving the 2nd dose of the Covid vaccine. - Social history:: Smoking status: Patient denies any tobacco usage or history of. - Family history:: not pertinent. ROS: 05:21 Constitutional: Negative for fever, chills, and weight loss, Eyes: Negative for injury, rt pain, redness, and discharge, Cardiovascular: Negative for chest pain, palpitations, and edema, Respiratory: Negative for shortness of breath, cough, wheezing, and pleuritic chest pain, Abdomen/GI: Negative for abdominal pain, nausea, vomiting, diarrhea, and constipation, MS/Extremity: Negative for injury and deformity, Skin: Negative for injury, rash, and discoloration, Neuro: Negative for headache, weakness, numbness, tingling, and seizure, Psych: Negative for depression, anxiety, suicide ideation, homicidal ideation, and hallucinations. 05:21 Back: Positive for pain at rest, Negative for injury or acute deformity. 05:21 : Positive for difficulty urinating, Negative for foul smelling urine. Exam: 05:21 Constitutional: This is a well developed, well nourished patient who is awake, alert, rt and in no acute distress. Head/Face: Normocephalic, atraumatic. Chest/axilla: Normal chest wall appearance and motion. Nontender with no deformity. No lesions are appreciated. Cardiovascular: Regular rate and rhythm with a normal S1 and S2. No gallops, murmurs, or rubs. Normal PMI, no JVD. No pulse deficits. Respiratory: Lungs have equal breath sounds bilaterally, clear to auscultation and percussion. No rales, rhonchi or wheezes noted. No increased work of breathing, no retractions or nasal flaring. Abdomen/GI: Soft, non-tender, with normal bowel sounds. No distension or tympany. No guarding or rebound. No evidence of tenderness throughout. MS/ Extremity: Pulses equal, no cyanosis. Neurovascular intact. Full, normal range of motion. Neuro: Awake and alert, GCS 15, oriented to person, place, time, and situation. Cranial nerves II-XII grossly intact. Motor strength 5/5 in all extremities. Sensory grossly intact. Cerebellar exam normal. Normal gait. Psych: Awake, alert, with orientation to person, place and time. Behavior, mood, and affect are within normal limits. 05:21 Back: Mild tenderness diffusely, no step-offs. Vital Signs: 01:48 BP 189 / 92; Pulse 69; Resp 18; Temp 98.2(O); Pulse Ox 100% on R/A; Weight 79.83 kg ll3 (R); Height 6 ft. 1 in. (185.42 cm) (R); Pain 9/10; 04:02 BP 158 / 96; Pulse 70; Resp 17; Temp 98.2; Pulse Ox 100% ; Pain 0/10; ke1 01:48 Body Mass Index 23.22 (79.83 kg, 185.42 cm) ll3 MDM: 01:36 Patient medically screened. rt 05:21 Differential diagnosis: Pyelonephritis, kidney stone, cauda equina syndrome, spinal rt epidural abscess. Data reviewed: vital signs, old medical records, lab test result(s), radiologic studies. Test considered but Not performed: MRI: Symptoms resolved, patient able to void, MRI not indicated to rule out spinal epidural abscess, cauda equina syndrome. Care significantly affected by the following chronic conditions: Kidney stones, BPH. Counseling: I had a detailed discussion with the patient and/or guardian regarding: the historical points, exam findings, and any diagnostic results supporting the discharge/admit diagnosis, lab results, radiology results, the need for outpatient follow up, a urologist. ED course: Patient presents to the ED with a back pain and reported urinary retention. Patient had resolution of symptoms with 1 dose of pain medications. He states that he believe that he passed a kidney stone and was able to void without difficulty following that. Patient states that he is emptying his bladder now. Given his rapid improvement of the symptoms, I have a lower suspicion for cauda equina syndrome, do not believe that urinary tension represents neurogenic bladder, CT scan shows evidence of chronic bladder outlet obstruction, believe this is most likely the cause of his obstruction as compared to spinal causes.. 10/06 01:46 Order name: Urine Microscopic Only rt 10/06 01:46 Order name: CBC with Diff rt 10/06 01:46 Order name: CMP rt 10/06 01:46 Order name: CPK rt 10/06 02:23 Order name: Urine Dipstick-Ancillary; Complete Time: 03:09 EDMS 10/06 02:41 Order name: CBC with Automated Diff; Complete Time: 03:09 EDMS 10/06 01:46 Order name: Bladder Scanner; Complete Time: 02:45 rt 10/06 01:46 Order name: Urine Dipstick-Ancillary (obtain specimen); Complete Time: 02:26 rt 10/06 01:46 Order name: CT Abd/Pelvis - Without Contrast rt 10/06 02:59 Order name: Comprehensive Metabolic Panel; Complete Time: 03:09 EDMS 10/06 02:59 Order name: Creatine Phosphokinase; Complete Time: 03:09 EDMS 10/06 03:00 Order name: Urine Microscopic Only; Complete Time: 03:09 EDMS Administered Medications: 02:11 Drug: morphine 4 mg Route: IVP; Infused Over: 4 mins; Site: left forearm; ke1 02:49 Follow up: Response: Pain is decreased ke1 02:11 Drug: Zofran (Ondansetron) 4 mg Route: IVP; Site: left forearm; ke1 02:49 Follow up: Response: Marked relief of symptoms ke1 Disposition Summary: 10/06/22 03:46 Discharge Ordered Location: Home rt Problem: new rt Symptoms: are resolved rt Condition: Stable rt Diagnosis - Low back pain rt - Hematuria, unspecified rt Followup: rt - With: Seferino Phillip MD - When: 5 - 6 days - Reason: Discharge Instructions: - Discharge Summary Sheet rt - Acute Back Pain, Adult rt - Hematuria, Adult rt - Kidney Stones rt Forms: - Medication Reconciliation Form rt - Thank You Letter rt - Antibiotic Education rt - Prescription Opioid Use rt Signatures: Dispatcher [employer] Niurka Bass RN RN ll3 Franco Gutierrez RN RN ke1 Canelo Ritchie MD MD rt
[2022-10-06 05:08] VITALS: TEMP 98.2; O2SAT 100
[2022-10-06 05:14] VITALS: BP 158/96
--- NOTE | 2022-10-06 19:51 | RAD REPORT ---
EXAM DESCRIPTION: CT - Abdomen Pelvis Wo Contrast - 10/06/2022 6:59 am CLINICAL HISTORY: The patient is 82 years old and is Male; FLANK PAIN [facility] MAIN TECHNIQUE: Axial computed tomography images of the abdomen and pelvis without intravenous contrast. Sagittal and coronal reformatted images were created and reviewed. This CT exam was performed usi ng one or more of the following dose reduction techniques: automated exposure control, adjustment o f the mA and/or kV according to patient size, and/or use of iterative reconstruction technique. COMPARISON: 07/21/2021 CTA chest abdomen pelvis FINDINGS: LUNG BASES: Unremarkable. No mass. No consolidation. ABDOMEN: LIVER: Unremarkable. GALLBLADDER AND BILE DUCTS: Layering cholelithiasis with mild gallbladder distention, but no signi ficant gallbladder wall thickening or pericholecystic free fluid. No ductal dilation. PANCREAS: Unremarkable. No ductal dilation. SPLEEN: Unremarkable. No splenomegaly. ADRENALS: Unremarkable. No mass. KIDNEYS AND URETERS: New curvilinear plaque-like calcifications demonstrated along the dependent r ight urinary bladder wall, with associated slight asymmetric prominence of the right ureter, but with out associated hydronephrosis. Retroaortic left renal vein. No obstructive intrarenal or intraureteral stones. STOMACH AND BOWEL: Unremarkable. No obstruction. No mucosal thickening. PELVIS: APPENDIX: No findings to suggest acute appendicitis. BLADDER: Unremarkable. No stones. REPRODUCTIVE: Unremarkable as visualized. ABDOMEN and PELVIS: INTRAPERITONEAL SPACE: See above. BONES/JOINTS: No acute fracture. No dislocation. SOFT TISSUES: Small fat-containing left inguinal hernia. Tiny fat-containing umbilical hernia. VASCULATURE: Dense calcified atherosclerosis of the abdominal aorta without aneurysmal dilatation. LYMPH NODES: Unremarkable. No enlarged lymph nodes. OTHER FINDINGS: Moderate prostamegaly. IMPRESSION: 1. New curvilinear plaque-like calcifications demonstrated along the dependent right u rinary bladder wall, with associated slight asymmetric prominence of the right ureter, but without as sociated hydronephrosis. Uncertain etiology, possibly related to prostatomegaly and chronic outlet ob struction/relative urinary stasis. Consider urology consultation. 2. Layering cholelithiasis with mild gallbladder distention, but no significant gallbladder wall th ickening or pericholecystic free fluid. 3. No acute abnormality of the abdomen or pelvis. Electronically signed by: Clemente Hart MD 10/06/2022 3:13 AM DECK MOLDER Due to temporary technical issues with the PACS/Fluency reporting system, reports are being signed by the in house radiologists without review as a courtesy to insure prompt reporting. The interpreting radiologist is fully responsible for the content of the report.
== END 2022-10-06 04:03 | disposition home or self-care (01) ==
LOC: ER 01:24
DX: M54.50 Low back pain, unspecified (principal); R31.9 Hematuria, unspecified; E11.9 Type 2 diabetes mellitus without complications; I10 Essential (primary) hypertension; Z87.442 Personal history of urinary calculi
CPT/HCPCS: 85025; 36415; 82550; 80053; 74176; 96375; 96374; 99284; J2405; 81003; 81015

== ENCOUNTER 2022-12-12 17:51 | Emergency (ER) | payer OTHER ==
[2022-12-12 19:32] LABS: Specific Gravity 1.013 (1.005-1.030); Urine Bacteria None Seen /HPF (<20); Urine Bilirubin NEGATIVE (Negative); Urine Blood Trace (Negative); Urine Clarity Clear (Clear); Urine Color Colorless (Yellow); Urine Crystals Unidentified Few /HPF (None Seen); Urine Glucose NEGATIVE (Negative); Urine Mucus Slight /HPF (None Seen); Urine Protein NEGATIVE (Negative); Urine RBC <5 /HPF (None Seen); Urine Urobilinogen Normal (Normal)
--- NOTE | 2022-12-12 21:13 | ER ---
Nurse's Notes [facility] Name: Yeyo Pealyo Age: 82 yrs Sex: Male : 1940 Arrival Date: 12/12/2022 Time: 17:51 Bed 5 Private MD: Diagnosis: Hematuria, unspecified Presentation: 12/12 18:17 Chief complaint: Patient states: "I think I have a problem with my prostate." C/O dark ld1 colored urine, frequent urination. Coronavirus screen: At this time, the client does not indicate any symptoms associated with coronavirus-19. Ebola Screen: No symptoms or risks identified at this time. Initial Sepsis Screen: Does the patient meet any 2 criteria? No. Patient's initial sepsis screen is negative. Does the patient have a suspected source of infection? No. Patient's initial sepsis screen is negative. Risk Assessment: Do you want to hurt yourself or someone else? Patient reports no desire to harm self or others. Onset of symptoms was December 12, 2022 at 18:18. 18:17 Method Of Arrival: Ambulatory ld1 18:17 Acuity: KEN 3 ld1 Triage Assessment: 18:18 General: Appears in no apparent distress. comfortable, Behavior is calm, cooperative, ld1 appropriate for age. Pain: Denies pain. EENT: No signs and/or symptoms were reported regarding the EENT system. Neuro: Level of Consciousness is awake, alert, obeys commands, Oriented to person, place, time, situation. Cardiovascular: Capillary refill < 3 seconds Patient's skin is warm and dry. Respiratory: Airway is patent Respiratory effort is even, unlabored. GI: Abdomen is flat, non-distended. : No signs and/or symptoms were reported regarding the genitourinary system. Derm: No signs and/or symptoms reported regarding the dermatologic system. Musculoskeletal: No signs and/or symptoms reported regarding the musculoskeletal system. Historical: - Allergies: 18:18 No Known Allergies; ld1 - PMHx: 18:18 Diabetes - NIDDM; Hypertension; Kidney stones; ld1 - PSHx: 18:18 Lithotripsy; ld1 - Immunization history:: Adult Immunizations up to date, Client reports receiving the 2nd dose of the Covid vaccine. - Social history:: Smoking status: Patient denies any tobacco usage or history of. Patient/guardian denies using alcohol. Screenin:36 [facility] ED Fall Risk Assessment (Adult) Score/Fall Risk Level 0 - 2 = Low Risk. Abuse as6 screen: Denies threats or abuse. Denies injuries from another. Nutritional screening: No deficits noted. Tuberculosis screening: No symptoms or risk factors identified. Assessment: 19:36 General: Appears in no apparent distress. Behavior is calm, cooperative. Pain: Denies as6 pain. Neuro: Level of Consciousness is awake, alert, obeys commands, Oriented to person, place, time, situation. Cardiovascular: Capillary refill < 3 seconds Patient's skin is warm and dry. Respiratory: Respiratory effort is even, unlabored, Respiratory pattern is regular, symmetrical. GI: No signs and/or symptoms were reported involving the gastrointestinal system. : Reports urinary frequency. 21:00 General: pt not in room. unable to locate, provider notified . as6 Vital Signs: 18:17 BP 197 / 98; Pulse 75; Resp 18; Temp 97.9(TE); Pulse Ox 100% on R/A; Weight 83.91 kg; ld1 Height 6 ft. 0 in. ; Pain 0/10; 19:37 BP 181 / 79; Pulse 66; Resp 18 S; Pulse Ox 100% on R/A; as6 21:00 BP 148 / 81; Pulse 65; Resp 16 S; Pulse Ox 100% on R/A; as6 18:17 Body Mass Index 25.09 (83.91 kg, 182.88 cm) ld1 18:17 Pain Scale: Adult ld1 ED Course: 17:52 Patient arrived in ED. ts1 18:00 Marco Antonio Riley DO is Attending Physician. ms3 18:18 Triage completed. ld1 18:18 Arm band placed on right wrist. ld1 18:31 Urine collected: clean catch specimen, clear. tm3 18:34 Urinalysis w/ reflexes Sent. ld1 19:28 Attending Physician role handed off by Marco Antonio Riley DO ms3 19:28 Roaul Peng MD is Attending Physician. ms3 19:35 Fam Palacios, CACHORRO is Primary Nurse. as6 19:36 Bed in low position. Call light in reach. as6 21:00 No provider procedures requiring assistance completed. Patient did not have IV access as6 during this emergency room visit. 21:12 Seferino Phillip MD is Referral Physician. sp4 Administered Medications: No medications were administered Medication: 19:36 VIS not applicable for this client. as6 Outcome: 21:12 Discharge ordered by . sp4 21:13 Discharged to home ambulatory. as6 21:13 Condition: stable 21:13 Discharge instructions given to pt left before receiving discharge instructions 21:14 Patient left the ED. as6 Signatures: Mathieu Lam tm3 Marco Antonio Riley DO DO ms3 Paris Riley RN RN ld1 Fam Palacios RN RN as6 Raoul Peng MD MD sp4 Natalie Garcia PAS PAS ts1
--- NOTE | 2022-12-12 21:13 | EDPHYS ---
Physician Documentation [facility] Name: Yeyo Pelayo Age: 82 yrs Sex: Male : 1940 Arrival Date: 12/12/2022 Time: 17:51 Bed 5 Private MD: ED Physician Raoul Peng HPI: 12/12 19:25 This 82 yrs old Male presents to ER via Ambulatory with complaints of Urinary Problem, ms3 BLOOD IN URINE. 19:25 82-year-old male with past medical history of diabetes, hypertension, kidney stones ms3 presents for dark urine that has been ongoing for 2 months. Patient endorses urine frequency. Patient denies dysuria. Patient states he is concerned he may have prostate cancer from the symptoms he googled. Historical: - Allergies: 18:18 No Known Allergies; ld1 - PMHx: 18:18 Diabetes - NIDDM; Hypertension; Kidney stones; ld1 - PSHx: 18:18 Lithotripsy; ld1 - Immunization history:: Adult Immunizations up to date, Client reports receiving the 2nd dose of the Covid vaccine. - Social history:: Smoking status: Patient denies any tobacco usage or history of. Patient/guardian denies using alcohol. ROS: 19:25 Constitutional: Negative for fever, and chills. ENT: Negative for injury, pain, and ms3 discharge, Neck: Negative for injury, pain, and swelling, Cardiovascular: Negative for chest pain, and palpitations. Respiratory: Negative for shortness of breath, cough, wheezing, and pleuritic chest pain, Abdomen/GI: Negative for abdominal pain, nausea, vomiting, diarrhea, and constipation, Back: Negative for injury and pain, MS/Extremity: Negative for injury and deformity, Skin: Negative for injury, rash, and discoloration. 19:25 : Positive for urinary frequency, Dark urine. Exam: 19:25 Constitutional: This is a well developed, well nourished patient who is awake, alert, ms3 and in no acute distress. Head/Face: Normocephalic, atraumatic. Eyes: Pupils equal round and reactive to light, extra-ocular motions intact. Lids and lashes normal. Conjunctiva and sclera are non-icteric and not injected. Periorbital areas with no swelling, redness, or edema. ENT: Nares patent. No nasal discharge, no septal abnormalities noted. Tympanic membranes are normal and external auditory canals are clear. Oropharynx with no redness, swelling, or masses, exudates, or evidence of obstruction, uvula midline. Mucous membranes moist. Neck: Trachea midline, no cervical lymphadenopathy. Supple, full range of motion without nuchal rigidity, or vertebral point tenderness. No Meningismus. Chest/axilla: Normal chest wall appearance and motion. Nontender with no deformity. Cardiovascular: Regular rate and rhythm with a normal S1 and S2. No gallops, murmurs, or rubs. Normal PMI, no JVD. No pulse deficits. Respiratory: Lungs have equal breath sounds bilaterally, clear to auscultation and percussion. No rales, rhonchi or wheezes noted. No increased work of breathing, no retractions or nasal flaring. Abdomen/GI: Soft, non-tender, with normal bowel sounds. No distension or tympany. No guarding or rebound. No evidence of tenderness throughout. Skin: Warm, dry with normal turgor. Normal color with no rashes, no lesions, and no evidence of cellulitis. MS/ Extremity: Pulses equal, no cyanosis. Neurovascular intact. Full, normal range of motion. Vital Signs: 18:17 BP 197 / 98; Pulse 75; Resp 18; Temp 97.9(TE); Pulse Ox 100% on R/A; Weight 83.91 kg; ld1 Height 6 ft. 0 in. ; Pain 0/10; 19:37 BP 181 / 79; Pulse 66; Resp 18 S; Pulse Ox 100% on R/A; as6 21:00 BP 148 / 81; Pulse 65; Resp 16 S; Pulse Ox 100% on R/A; as6 18:17 Body Mass Index 25.09 (83.91 kg, 182.88 cm) ld1 18:17 Pain Scale: Adult ld1 MDM: 18:48 Patient medically screened. ms3 19:25 Differential diagnosis: UTI, urinary retention, prostatitis. Transition of care: After ms3 a detail discussion of the patient's case, care is transferred to Raoul Peng MD. 21:10 Differential diagnosis: urethritis. Data reviewed: vital signs, nurses notes, lab test sp4 result(s), urinalysis. ED course: Patient was evaluated by Dr. Riley on arrival and urinalysis was ordered. Urinalysis reveals trace blood with less than 5 red blood cells per high-power field no signs of UTI. I was on my way to evaluate the patient however patient seems to be missing from his room and nowhere to be found. At this time we will document as patient informed discharge and will print out discharge papers and will reassess patient in case he comes back to the emergency department. . 12/12 18:00 Order name: Urinalysis w/ reflexes; Complete Time: 20:50 ms3 Administered Medications: No medications were administered Disposition Summary: 12/12/22 21:12 Discharge Ordered Location: Home sp4 Problem: new sp4 Symptoms: are unchanged sp4 Condition: Stable sp4 Diagnosis - Hematuria, unspecified sp4 Followup: sp4 - With: Seferino Phillip MD - When: 7 - 10 days - Reason: Recheck today's complaints Discharge Instructions: - Discharge Summary Sheet sp4 - Hematuria, Adult sp4 Forms: - Thank You Letter sp4 Signatures: Dispatcher [employer] EDMS Marco Antonio Riley, DO ms3 Paris Riley, RN RN ld1 Raoul Peng MD MD sp4
[2022-12-12 21:47] VITALS: TEMP 97.9; O2SAT 100
[2022-12-12 21:50] VITALS: BP 148/81
== END 2022-12-12 21:14 | disposition home or self-care (01) ==
LOC: ER 17:51
DX: R31.9 Hematuria, unspecified (principal); Z87.442 Personal history of urinary calculi
CPT/HCPCS: 81001

== ENCOUNTER 2023-02-05 02:52 | Emergency (ER) | payer OTHER ==
[2023-02-05 04:03] LABS: SARS-CoV-2 Antigen Rapid Res Negative (Negative)
[2023-02-05 04:23] LABS: Absolute Lymphocytes (CBC) 1.4 K/uL (0.7-4.9); Hematocrit 39.6 % (39.6-49.0); Lymphocytes % 19.6 % (15.3-44.8); MCV 92.4 fL (80-100); MPV 7.5 fL (7.6-11.3); RBC Red Blood Cell Count 4.28 M/uL (4.33-5.43)
[2023-02-05 04:32] LABS: Potassium 3.9 mEq/L (3.5-5.1)
--- NOTE | 2023-02-05 05:01 | ER ---
Nurse's Notes [facility] Name: Yeyo Pelayo Age: 82 yrs Sex: Male : 1940 Arrival Date: 02/05/2023 Time: 02:52 Bed 5 Private MD: Diagnosis: Acute nasopharyngitis [common cold] Presentation: 02/05 02:59 Chief complaint: Patient states: "I'm having flu like symptoms. I think I go tit from as6 my . I have a sore throat and cough". Coronavirus screen: At this time, the client does not indicate any symptoms associated with coronavirus-19. Ebola Screen: No symptoms or risks identified at this time. Initial Sepsis Screen: Does the patient meet any 2 criteria? No. Patient's initial sepsis screen is negative. Does the patient have a suspected source of infection? No. Patient's initial sepsis screen is negative. Risk Assessment: Do you want to hurt yourself or someone else? Patient reports no desire to harm self or others. Onset of symptoms was February 05, 2023. 02:59 Method Of Arrival: Ambulatory as6 02:59 Acuity: KEN 4 as6 Historical: - Allergies: 03:03 No Known Allergies; as6 - PMHx: 03:03 Diabetes - NIDDM; Hypertension; Kidney stones; as6 - PSHx: 03:03 Lithotripsy; as6 - Immunization history:: Client reports receiving the 2nd dose of the Covid vaccine. - Social history:: Smoking status: Patient denies any tobacco usage or history of. - Family history:: not pertinent. Screenin:18 [facility] ED Fall Risk Assessment (Adult) History of falling in the last 3 months, kd3 including since admission No falls in past 3 months (0 pts) Confusion or Disorientation No (0 pts) Intoxicated or Sedated No (0 pts) Impaired Gait No (0 pts) Mobility Assist Device Used No (0 pt) Altered Elimination No (0 pt) Score/Fall Risk Level 0 - 2 = Low Risk Maintained a safe environment. Abuse screen: Denies threats or abuse. Denies injuries from another. Nutritional screening: No deficits noted. Tuberculosis screening: No symptoms or risk factors identified. Assessment: 03:17 General: Appears in no apparent distress. Behavior is calm, cooperative. Pain: kd3 Complains of pain in body aches. Neuro: Level of Consciousness is awake, alert, obeys commands, Oriented to person, place, time, situation. Cardiovascular: Patient's skin is warm and dry. Respiratory: Airway is patent Trachea midline Respiratory effort is even, unlabored, Respiratory pattern is regular, symmetrical. Vital Signs: 02:59 BP 190 / 84; Pulse 68; Resp 18 S; Temp 98.2(O); Pulse Ox 99% on R/A; Weight 79.83 kg as6 (R); Height 6 ft. 1 in. (R); Pain 0/10; 03:17 BP 191 / 74; Pulse 61; Resp 19; Pulse Ox 100% on R/A; kd3 04:23 BP 159 / 71; Pulse 54; Resp 16; Pulse Ox 100% on R/A; kd3 02:59 Body Mass Index 23.22 (79.83 kg, 185.42 cm) as6 02:59 Pain Scale: Adult as6 ED Course: 02:56 Patient arrived in ED. ag3 03:00 Raoul Peng MD is Attending Physician. sp4 03:03 Triage completed. as6 03:04 Arm band placed on. as6 03:13 Strep Sent. as6 03:13 Influenza Screen (a \\T\\ B) Sent. as6 03:13 SARS RAPID Sent. as6 03:14 Whitney Goodwin, RN is Primary Nurse. kd3 05:11 Patient has correct armband on for positive identification. kd3 05:11 No provider procedures requiring assistance completed. IV discontinued, intact, kd3 bleeding controlled, No redness/swelling at site. Pressure dressing applied. Administered Medications: No medications were administered Medication: 03:18 VIS not applicable for this client. kd3 Outcome: 05:01 Discharge ordered by . sp4 05:11 Discharged to home ambulatory. kd3 05:11 Condition: stable 05:11 Discharge instructions given to patient, Instructed on discharge instructions, follow up and referral plans. medication usage, Demonstrated understanding of instructions, follow-up care, medications, Prescriptions given X 1. 05:12 Patient left the ED. kd3 Signatures: Mima Bergeron 3 Fam Palacios RN RN as6 Whitney Goodwin RN RN kd3 Potepalov, Raoul, MD MD sp4
--- NOTE | 2023-02-05 05:02 | EDPHYS ---
Physician Documentation [facility] Name: Yeyo Pelayo Age: 82 yrs Sex: Male : 1940 Arrival Date: 02/05/2023 Time: 02:52 Bed 5 Private MD: ED Physician Raoul Peng HPI: 02/05 03:00 This 82 yrs old Male presents to ER via Unassigned with complaints of Cold sp4 Symptoms. 04:54 PVCs very pleasant 82-year-old male with history of diabetes, hypertension, kidney sp4 stones, presents with complaint of with cough, mucus in the throat, congestion, and also concern for COVID-19. Patient states his return from [facility] where she was on a trip and arrived back to the [place] approximately 10 days ago. Since then patient began to feel unwell, cough, congestion, sore throat. He is here to be tested for infectious disease. . Historical: - Allergies: 03:03 No Known Allergies; as6 - PMHx: 03:03 Diabetes - NIDDM; Hypertension; Kidney stones; as6 - PSHx: 03:03 Lithotripsy; as6 - Immunization history:: Client reports receiving the 2nd dose of the Covid vaccine. - Social history:: Smoking status: Patient denies any tobacco usage or history of. - Family history:: not pertinent. ROS: 04:54 Constitutional: Negative for fever, chills, and weight loss, Eyes: Negative for injury, sp4 pain, redness, and discharge, ENT: Negative for injury, pain, and discharge, positive mild sore throat, cough, nasal and upper airway congestion. Neck: Negative for injury, pain, and swelling, Cardiovascular: Negative for chest pain, palpitations, and edema, Respiratory: Negative for shortness of breath, wheezing, and pleuritic chest pain, positive with cough Abdomen/GI: Negative for abdominal pain, nausea, vomiting, diarrhea, and constipation, Back: Negative for injury and pain, : Negative for injury, bleeding, discharge, and swelling, MS/Extremity: Negative for injury and deformity, Skin: Negative for injury, rash, and discoloration, Neuro: Negative for headache, weakness, numbness, tingling, and seizure, Psych: Negative for depression, anxiety, Allergy/Immunology: Negative for hives, rash, and allergies Endocrine: Negative for neck swelling, polydipsia, polyuria, polyphagia, and weight changes Hematologic/Lymphatic: Negative for swollen nodes, abnormal bleeding, and unusual bruising Exam: 04:54 Constitutional: This is a well developed, well nourished patient who is awake, alert, sp4 and in no acute distress. Head/Face: Normocephalic, atraumatic. Eyes: Pupils equal round and reactive to light, extra-ocular motions intact. Lids and lashes normal. Conjunctiva and sclera are not injected. Cornea within normal limits. Periorbital areas with no swelling, redness, or edema. ENT: Nares patent. No nasal discharge, no septal abnormalities noted. Tympanic membranes are normal and external auditory canals are clear. Oropharynx with no redness, swelling, or masses, exudates, or evidence of obstruction, uvula midline. Mucous membranes moist. Neck: Trachea midline, no thyromegaly or masses palpated, and no cervical lymphadenopathy. Supple, full range of motion without nuchal rigidity, or vertebral point tenderness. Chest/axilla: Normal chest wall appearance and motion. Nontender with no deformity. No lesions are appreciated. Cardiovascular: Regular rate and rhythm with a normal S1 and S2. No gallops, murmurs, or rubs. Normal PMI, no JVD. No pulse deficits. Respiratory: Lungs have equal breath sounds bilaterally, clear to auscultation and percussion. No rales, rhonchi or wheezes noted. No increased work of breathing, no retractions or nasal flaring. Abdomen/GI: Soft, non-tender, with normal bowel sounds. No distension or tympany. No guarding or rebound. No evidence of tenderness throughout. Back: No spinal tenderness. No costovertebral tenderness. Skin: Warm, dry with normal turgor. Normal color with no rashes, no lesions, and no evidence of cellulitis. MS/ Extremity: Pulses equal, no cyanosis. Neurovascular intact. Full, normal range of motion. Neuro: Awake and alert, GCS 15, oriented to person, place, time, and situation. Cranial nerves II-XII grossly intact. Motor strength 5/5 in all extremities. Sensory grossly intact. Psych: Awake, alert, with orientation to person, place and time. Behavior, mood, and affect are within normal limits Vital Signs: 02:59 BP 190 / 84; Pulse 68; Resp 18 S; Temp 98.2(O); Pulse Ox 99% on R/A; Weight 79.83 kg as6 (R); Height 6 ft. 1 in. (R); Pain 0/10; 03:17 BP 191 / 74; Pulse 61; Resp 19; Pulse Ox 100% on R/A; kd3 04:23 BP 159 / 71; Pulse 54; Resp 16; Pulse Ox 100% on R/A; kd3 02:59 Body Mass Index 23.22 (79.83 kg, 185.42 cm) as6 02:59 Pain Scale: Adult as6 MDM: 03:01 Patient medically screened. sp4 04:54 Differential Diagnosis altered mental status, flu, Acute viral illness, common cold. sp4 Data reviewed: vital signs, nurses notes, old medical records, lab test result(s). Data reviewed: lab test result(s), Flu: negative. Consideration of Admission/Observation Escalation of care including admission/observation considered. ED course: For UEs negative, COVID-19 is negative. 02/05 03:01 Order name: SARS RAPID; Complete Time: 04:51 sp4 02/05 03:01 Order name: Influenza Screen (a \T\ B); Complete Time: 04:51 sp4 02/05 03:07 Order name: Strep; Complete Time: 04:51 as6 02/05 03:30 Order name: CBC with Diff; Complete Time: 04:51 sp4 02/05 03:30 Order name: BMP; Complete Time: 04:51 sp4 02/05 04:04 Order name: Throat Culture EDMS Administered Medications: No medications were administered Disposition Summary: 02/05/23 05:01 Discharge Ordered Location: Home sp4 Problem: new sp4 Symptoms: have improved sp4 Condition: Stable sp4 Diagnosis - Acute nasopharyngitis [common cold] sp4 Followup: sp4 - With: Private Physician - When: 7 - 10 days - Reason: Recheck today's complaints Discharge Instructions: - Discharge Summary Sheet sp4 - Upper Respiratory Infection, Adult sp4 Prescriptions: - dextromethorphan HBr 15 mg/5 mL Oral liquid - take 10 milliliter by ORAL route every 12 hours PRN cough; 89 milliliter; sp4 Refills: 0, Product Selection Permitted Signatures: Dispatcher [employer] Fam Ye, CACHORRO RN as6 Raoul Peng MD MD sp4
[2023-02-05 05:16] VITALS: TEMP 98.2
[2023-02-05 05:17] VITALS: O2SAT 100
[2023-02-05 05:19] VITALS: BP 159/71
== END 2023-02-05 05:12 | disposition home or self-care (01) ==
LOC: ER 02:52
DX: J00 Acute nasopharyngitis [common cold] (principal); E11.9 Type 2 diabetes mellitus without complications; I10 Essential (primary) hypertension; Z20.822 Contact with and (suspected) exposure to COVID-19
CPT/HCPCS: 36415; 80048; 85025; 87070; 87081; 87804; 87811; 99283

== ENCOUNTER 2023-02-06 22:04 | Emergency (ER) | payer OTHER ==
--- OUTSIDE RECORDS SUMMARY | 2023-02-06 22:07 | XMS REPORT | Continuity of Care Document ---
:1940 Author Organization [facility] t Address [address] [place] [id number] Care Team Providers Name Role Phone Lalo Munroe Attending Clinician Unavailable Problems This patient has no known problems. Allergies, Adverse Reactions, Alerts This patient has no known allergies or adverse reactions. Medications This patient has no known medications. Procedures This patient has no known procedures. Encounters Start End Encounter Admission Attending Care Care Encounter Source Date/Time Date/Time Type Type Clinicians Facility Department ID 2023-01-08 Outpatient BRIANNA Munroe [id number] Common 13:53:03 Lalo [id number] [facility] Results This patient has no known results.
[2023-02-06] MEDS ORDERED: LEVALBUTEROL 1.25 MG/3 ML NEB ONE (22:34)
--- NOTE | 2023-02-07 00:23 | EDPHYS ---
Physician Documentation [facility] Name: Yeyo Pelayo Age: 82 yrs Sex: Male : 1940 Arrival Date: 02/06/2023 Time: 22:04 Bed 9 Private MD: ED Physician Raoul Peng HPI: 02/06 22:18 This 82 yrs old Male presents to ER via Ambulatory with complaints of Breathing jmm Difficulty, EXCESSIVE DROWSINESS. 22:18 The patient has shortness of breath at rest. Onset: The symptoms/episode began/occurred jmm gradually, 2 day(s) ago. Patient was seen in the ED with complaints of cough, sore throat, complains of worsening cough with SOB, denies fever. . Historical: - Allergies: 22:15 No Known Allergies; kl - PMHx: 22:15 Diabetes - NIDDM; Hypertension; Kidney stones; kl 22:19 asthbestosis; kl - PSHx: 22:15 Lithotripsy; kl - Immunization history:: Adult Immunizations up to date. - Social history:: Smoking status: Patient denies any tobacco usage or history of. ROS: 22:18 Constitutional: Negative for fever, chills, and weight loss. jmm 22:18 ENT: Positive for sore throat. 22:18 Respiratory: Positive for cough. 22:18 All other systems are negative. Exam: 22:18 Constitutional: This is a well developed, well nourished patient who is awake, alert, jmm and in no acute distress. Head/Face: atraumatic. Eyes: EOMI, no conjunctival erythema appreciated 22:18 Neck: Trachea midline, Supple Chest/axilla: Normal chest wall appearance and motion. Cardiovascular: Regular rate and rhythm. No edema appreciated 22:18 Back: Normal ROM Skin: General appearance color normal MS/ Extremity: Moves all extremities, no obvious deformities appreciated, no edema noted to the lower extremities Neuro: Awake and alert Psych: Behavior is normal, Mood is normal, Patient is cooperative and pleasant 22:18 ENT: Posterior pharynx: erythema, that is mild. 22:18 Respiratory: the patient does not display signs of respiratory distress, Respirations: normal, Breath sounds: wheezing: that is mild, is scattered. Vital Signs: 22:12 BP 163 / 72; Pulse 66; Resp 18; Temp 98.4(TE); Pulse Ox 100% on R/A; Weight 79.83 kg kl (R); Height 6 ft. 1 in. ; Pain 0/10; 02/07 00:50 BP 153 / 68; Pulse 68; Resp 18; Temp 98; Pulse Ox 99% on R/A; pf1 02/06 22:12 Body Mass Index 23.22 (79.83 kg, 185.42 cm) 02/06 22:12 Pain Scale: Adult kl MDM: 02/06 22:18 Patient medically screened. [facility] 02/07 00:36 Differential diagnosis: Bronchitis pneumonia. Data reviewed: vital signs, nurses notes, [facility] radiologic studies, plain films. Consideration of Admission/Observation Escalation of care including admission/observation considered. Counseling: I had a detailed discussion with the patient and/or guardian regarding: the historical points, exam findings, and any diagnostic results supporting the discharge/admit diagnosis, lab results, radiology results, the need for outpatient follow up, to return to the emergency department if symptoms worsen or persist or if there are any questions or concerns that arise at home. 02/06 22:18 Order name: Chest Single View XRAY [facility] Administered Medications: 02/06 22:30 Drug: Levalbuterol Inhalation 1.25 mg Route: Inhalation; cg 23:30 Follow up: Response: No adverse reaction; Marked relief of symptoms pf1 02/07 00:37 Drug: Rocephin (cefTRIAXone) IM 1 grams Route: IM; Site: left gluteus; cg 00:52 Follow up: Response: No adverse reaction; Marked relief of symptoms pf1 00:37 Drug: AZITHromycin PO 500 mg Route: PO; cg 00:52 Follow up: Response: No adverse reaction; Marked relief of symptoms pf1 Disposition: 08:42 Co-signature as Attending Physician, Raoul Peng MD I agree with the assessment sp4 and plan of care. I reviewed the patient's care provided by the Advanced Practice Provider and agree with the diagnosis and treatment plan. Disposition Summary: 02/07/23 00:22 Discharge Ordered Location: Home [facility] Condition: Stable [facility] Diagnosis - Community-acquired pneumonia [facility] Followup: [facility] - With: Private Physician - When: 2 - 3 days - Reason: Recheck today's complaints, Continuance of care, Re-evaluation by your physician Discharge Instructions: - Discharge Summary Sheet [facility] - Community-Acquired Pneumonia, Adult [facility] Forms: - Medication Reconciliation Form [facility] - Thank You Letter [facility] - Antibiotic Education [facility] - Prescription Opioid Use [facility] Prescriptions: - albuterol sulfate 90 mcg/actuation Inhalation HFA Aerosol Inhaler - inhale 1 puff by INHALATION route every 2 to 3 hours As needed; 1 unit; jmm Refills: 0, Product Selection Permitted - cefdinir 300 mg Oral capsule - take 1 capsule by ORAL route 2 times per day for 10 days; 20 capsule; Refills: jmm 0, Product Selection Permitted - Zithromax Z-Tanner 250 mg Oral Tablet - take 1 tablet by ORAL route as directed for 5 days Day 1 - take two (2) tablets [facility] one time. Day 2, 3, 4 , 5 take one (1) tablet once daily.; 6 tablet; Refills: 0, Product Selection Permitted Signatures: Dispatcher [employer] Juliana Hall RN RN kl Mickail, Joel, PA PA jmm Garcia, Cindy, RN RN cg Potepalov, Sergey, MD MD sp4 Brianna Lieberman RN pf1
--- NOTE | 2023-02-07 00:23 | ER ---
Nurse's Notes [facility] Name: Yeyo Pelayo Age: 82 yrs Sex: Male : 1940 Arrival Date: 02/06/2023 Time: 22:04 Bed 9 Private MD: Diagnosis: Community-acquired pneumonia Presentation: 02/06 22:12 Chief complaint: Patient states: difficulty breathing seen here x 2 days prior kl diagnosed with URI did not get prescriptions and is not taking recommended medications. Coronavirus screen: Vaccine status: Patient reports receiving the 2nd dose of the covid vaccine. Ebola Screen: Patient negative for fever greater than or equal to 101.5 degrees Fahrenheit, and additional compatible Ebola Virus Disease symptoms. Initial Sepsis Screen: Does the patient meet any 2 criteria? No. Patient's initial sepsis screen is negative. Does the patient have a suspected source of infection? No. Patient's initial sepsis screen is negative. Risk Assessment: Do you want to hurt yourself or someone else? Patient reports no desire to harm self or others. 22:12 Method Of Arrival: Ambulatory kl 22:12 Acuity: KEN 4 kl Triage Assessment: 22:16 General: Appears in no apparent distress. comfortable, Behavior is calm, cooperative. kl Pain: Denies pain. Respiratory: Reports shortness of breath at rest pt reports feels like he is not getting enough air Breath sounds with wheezes bilaterally. Onset: The symptoms/episode began/occurred gradually, the patient has mild shortness of breath. Historical: - Allergies: 22:15 No Known Allergies; kl - PMHx: 22:15 Diabetes - NIDDM; Hypertension; Kidney stones; kl 22:19 asthbestosis; kl - PSHx: 22:15 Lithotripsy; kl - Immunization history:: Adult Immunizations up to date. - Social history:: Smoking status: Patient denies any tobacco usage or history of. Screenin:00 [facility] ED Fall Risk Assessment (Adult) History of falling in the last 3 months, pf1 including since admission No falls in past 3 months (0 pts) Confusion or Disorientation No (0 pts) Intoxicated or Sedated No (0 pts) Impaired Gait No (0 pts) Mobility Assist Device Used No (0 pt) Altered Elimination No (0 pt) Score/Fall Risk Level 0 - 2 = Low Risk Oriented to surroundings, Maintained a safe environment, Educated pt \T\ family on fall prevention, incl call for assistance when getting out of bed, Assessed \T\ reinforced patient's understanding of fall precautions, Provided non-skid footwear, Hourly rounding (assess needs \T\ fall precautionary measures) done, Used ambulatory aids as needed (educated on \T\ assisted with), Used gait belt as appropriate. 23:00 Abuse screen: Denies threats or abuse. Nutritional screening: No deficits noted. pf1 Tuberculosis screening: No symptoms or risk factors identified. Assessment: 23:00 General: Appears in no apparent distress. comfortable, well groomed, well developed, pf1 Behavior is calm, cooperative, appropriate for age, quiet. 23:00 Pain: Denies pain. Neuro: No deficits noted. Level of Consciousness is awake, alert, pf1 obeys commands, Oriented to person, place, time, situation, Appropriate for age. Cardiovascular: Reports shortness of breath, Capillary refill < 3 seconds Patient's skin is warm and dry. 23:00 Respiratory: Reports shortness of breath on exertion Airway is patent Trachea midline pf1 Respiratory effort is even, unlabored, Respiratory pattern is regular, symmetrical, Breath sounds with wheezes bilaterally. 23:00 GI: No deficits noted. No signs and/or symptoms were reported involving the pf1 gastrointestinal system. : No deficits noted. No signs and/or symptoms were reported regarding the genitourinary system. EENT: No deficits noted. No signs and/or symptoms were reported regarding the EENT system. Derm: No deficits noted. No signs and/or symptoms reported regarding the dermatologic system. Vital Signs: 22:12 BP 163 / 72; Pulse 66; Resp 18; Temp 98.4(TE); Pulse Ox 100% on R/A; Weight 79.83 kg kl (R); Height 6 ft. 1 in. ; Pain 0/10; 02/07 00:50 BP 153 / 68; Pulse 68; Resp 18; Temp 98; Pulse Ox 99% on R/A; pf1 02/06 22:12 Body Mass Index 23.22 (79.83 kg, 185.42 cm) 02/06 22:12 Pain Scale: Adult ED Course: 02/06 22:05 Patient arrived in ED. jj6 22:08 Bob Whatley PA is PHCP. [facility] 22:08 Raoul Peng MD is Attending Physician. [facility] 22:15 Triage completed. 22:15 Patient has correct armband on for positive identification. Bed in low position. Call pf1 light in reach. 22:15 Arm band placed on right wrist. pf1 22:53 Chest Single View XRAY In Process Unspecified. EDMS 23:00 No provider procedures requiring assistance completed. pf1 23:00 Patient did not have IV access during this emergency room visit. pf1 Administered Medications: 22:30 Drug: Levalbuterol Inhalation 1.25 mg Route: Inhalation; cg 23:30 Follow up: Response: No adverse reaction; Marked relief of symptoms pf1 02/07 00:37 Drug: Rocephin (cefTRIAXone) IM 1 grams Route: IM; Site: left gluteus; cg 00:52 Follow up: Response: No adverse reaction; Marked relief of symptoms pf1 00:37 Drug: AZITHromycin PO 500 mg Route: PO; cg 00:52 Follow up: Response: No adverse reaction; Marked relief of symptoms pf1 Medication: 00:37 VIS not applicable for this client. pf1 Outcome: 00:22 Discharge ordered by MD. [facility] 00:52 Discharged to home ambulatory. pf1 00:52 Condition: improved 00:52 Discharge instructions given to patient, Instructed on discharge instructions, follow up and referral plans. Demonstrated understanding of instructions, follow-up care, medications, Prescriptions given X 3. 00:52 Patient left the ED. pf1 Signatures: Dispatcher [employer] EDMS Juliana Joseph RN RN kl Mickail, Joel, PA PA Lisa Morrison RN RN cg Jeffries, Jennifer jj6 Finley, Pamala, RN RN pf1 Corrections: (The following items were deleted from the chart) 08:01 02/06 22:00 Patient has correct armband on for positive identification. Bed in low pf1 position. Call light in reach. pf1 02/07 08:02 00:53 Patient left the ED. pf1 pf1
[2023-02-07] MEDS ORDERED: CEFTRIAXONE 1000 MG/VIAL ONE (00:27)
[2023-02-07] MEDS ORDERED: AZITHROMYCIN 250 MG TAB ONE (00:35)
[2023-02-07] MEDS ORDERED: WATER FOR INJ,STERILE 10 ML ONE (00:35)
[2023-02-07 01:29] VITALS: BP 163/72; TEMP 98.4; O2SAT 100
--- NOTE | 2023-02-07 22:21 | RAD REPORT ---
EXAM DESCRIPTION: RAD - Chest Single View - 02/06/2023 10:51 pm Chest Single View CLINICAL HISTORY: 82 years Male cough, sob COMPARISON: None TECHNIQUE: AP view of the chest was obtained. FINDINGS: Cardiac silhouette is prominent in size. Central vessels are not increased. No effusions bilaterally. Increased interstitial findings lower lungs bilaterally. No consolidation. No pneumothorax. IMPRESSION: Infiltrate versus chronic change lower lungs bilaterally. Electronically signed by: Yolanda Lea MD 02/06/2023 11:17 PM CDT Due to temporary technical issues with the PACS/Fluency reporting system, reports are being signed by the in house radiologists without review as a courtesy to insure prompt reporting. The interpreting radiologist is fully responsible for the content of the report.
== END 2023-02-07 00:53 | disposition home or self-care (01) ==
LOC: ER 22:04
DX: J18.9 Pneumonia, unspecified organism (principal); I10 Essential (primary) hypertension; E11.9 Type 2 diabetes mellitus without complications
CPT/HCPCS: 71045; 96372; 99285; J7614; J0696

== ENCOUNTER 2023-02-10 13:52 | Emergency (ER) | payer OTHER ==
--- OUTSIDE RECORDS SUMMARY | 2023-02-10 13:56 | XMS REPORT | Continuity of Care Document ---
:1940 Author Organization [facility] t Address [address] [place] [id number] Care Team Providers Name Role Phone Lalo [...] Facility Department ID 2023-01-08 Outpatient BRIANNA Munroe [id number] Common 13:53:03 Lalo [id number] [facility] Results This patient has no known results.
[2023-02-10 14:57] LABS: Hematocrit 39.8 % (39.6-49.0); Lymphocytes % 13.6 % (15.3-44.8); MCV 93.2 fL (80-100); MPV 7.5 fL (7.6-11.3); RBC Red Blood Cell Count 4.27 M/uL (4.33-5.43)
[2023-02-10 15:07] LABS: SARS-CoV-2 Antigen Rapid Res Negative (Negative)
[2023-02-10 15:41] LABS: Albumin 3.2 g/dL (3.4-5.0); Bilirubin Total 0.4 mg/dL (0.2-1.0); Protein, Total 7.7 g/dL (6.4-8.2); Troponin High Sensitivity 5.9 pg/mL (<58.9)
--- NOTE | 2023-02-10 17:37 | RAD REPORT ---
EXAM DESCRIPTION: CT - Abdomen Pelvis Wo Contrast - 02/10/2023 4:40 pm CLINICAL HISTORY: ABD PAIN COMPARISON: Abdomen Pelvis Wo Contrast dated 10/06/2022; Abdomen Pelvis W Contrast dated 12/16/2018 ; Stone Protocol dated 11/08/2018; Stone Protocol dated 11/28/2015 TECHNIQUE: Thin cut axial CT imaging of the abdomen and pelvis was performed without IV contrast. Mu ltiplanar reformats were generated and reviewed. All CT scans are performed using dose optimization technique as appropriate and may include automated exposure control or mA/KV adjustment according to patient size. FINDINGS: No suspicious findings in the lung bases. The liver, spleen, and pancreas show no suspicious findings. Cholelithiasis. No evidence of intra or extrahepatic biliary ductal dilation. Symmetric renal contour, without suspicious parenchymal findings within limits of noncontrast techniq ue. No evidence of radiopaque calculi or hydroureteronephrosis. No dilated bowel loops or bowel wall thickening. No free air, free fluid or inflammatory stranding. S table left inguinal hernia containing fat. No suspicious mass or bulky lymphadenopathy. Increasing number of small radiodensities layering dependently within the urinary bladder lumen, part icularly on the left, suggestive of increasing small calculi. No suspicious bony findings. IMPRESSION: No acute intra-abdominal process. Increasing burden of small urinary bladder calculi. Other stable findings including cholelithiasis.
--- NOTE | 2023-02-10 17:49 | ER ---
Nurse's Notes [facility] Name: Yeyo Pelayo Age: 82 yrs Sex: Male : 1940 Arrival Date: 02/10/2023 Time: 13:52 Bed 10 Private MD: Lalo Munroe H Diagnosis: Diarrhea, unspecified Presentation: 02/10 14:01 Chief complaint: Patient states: Diarrhea that began this morning. ss 14:01 Coronavirus screen: Client denies travel out of the [place] in the last 14 days. Ebola ss Screen: Patient denies exposure to infectious person. Patient denies travel to an Ebola-affected area in the 21 days before illness onset. Initial Sepsis Screen: Does the patient meet any 2 criteria? No. Patient's initial sepsis screen is negative. Does the patient have a suspected source of infection? No. Patient's initial sepsis screen is negative. Risk Assessment: Do you want to hurt yourself or someone else? Patient reports no desire to harm self or others. Onset of symptoms was February 10, 2023. 14:01 Method Of Arrival: Ambulatory ss 14:01 Acuity: KEN 3 ss Historical: - Allergies: 14:07 No Known Allergies; ss - PMHx: 14:07 Diabetes - NIDDM; Hypertension; Kidney stones; ss - PSHx: 14:07 Lithotripsy; ss - Family history:: not pertinent. Screenin:01 [facility] ED Fall Risk Assessment (Adult) History of falling in the last 3 months, kb3 including since admission No falls in past 3 months (0 pts). Abuse screen: Denies threats or abuse. Denies injuries from another. Nutritional screening: No deficits noted. Tuberculosis screening: Never had TB. Assessment: 18:01 General: Appears in no apparent distress. comfortable, Behavior is calm, cooperative. kb3 Neuro: Level of Consciousness is awake, alert. Vital Signs: 14:01 BP 178 / 91; Pulse 88; Resp 18; Pulse Ox 99% on R/A; ss 14:04 Temp 98.2(O); ss ED Course: 13:53 Patient arrived in ED. im 13:54 Lalo Munroe DO is Private Physician. im 13:57 Canelo Ritchie MD is Attending Physician. rt 14:02 Triage completed. ss 14:07 Arm band placed on right wrist. ss 14:16 SARS RAPID Sent. ss 14:16 Influenza Screen (a \T\ B) Sent. ss 14:37 Influenza Screen (a \T\ B) Sent. kj1 14:37 SARS RAPID Sent. kj1 16:41 Abdomen In Process Unspecified. EDMS 18:01 Patient has correct armband on for positive identification. kb3 18:01 No provider procedures requiring assistance completed. IV discontinued, intact, kb3 bleeding controlled, No redness/swelling at site. Pressure dressing applied. Administered Medications: No medications were administered Medication: 18:01 VIS not applicable for this client. kb3 Outcome: 17:49 Discharge ordered by . rt 18:01 Discharged to 3 18:01 Discharged to home ambulatory, with family. 18:01 Condition: good 18:01 Discharge instructions given to patient, Instructed on discharge instructions, follow up and referral plans. Demonstrated understanding of instructions, follow-up care. 18:01 Patient left the ED. kb3 Signatures: Dispatcher [employer] EDCA Nini Dias, CACHORRO RN Argenis Hernandez kj1 Kallie Santizo, CACHORRO RN kb3 Canelo Ritchie MD MD rt Ivet Sethi Corrections: (The following items were deleted from the chart) 14:07 14:07 PMHx: asthbestosis; [facility] 18:01 18:01 Patient did not have IV access during this emergency room visit. kb3 kb3
--- NOTE | 2023-02-10 17:49 | EDPHYS ---
Physician Documentation [facility] Name: Yeyo Pelayo Age: 82 yrs Sex: Male : 1940 Arrival Date: 02/10/2023 Time: 13:52 Bed 10 Private MD: Lalo Munroe H ED Physician Canelo Ritchie HPI: 02/10 16:48 This 82 yrs old Male presents to ER via Ambulatory with complaints of Diarrhea. rt 16:48 Patient presents to the ED with diarrhea starting today. Patient states that he has rt felt feverish since yesterday and is had a cough during that time as well. He states that he is somewhat short of breath. States that the diarrhea started today. Denies nausea, vomiting, hematochezia. Denies abdominal pain. Symptoms are mild in severity, no other aggravating alleviating factors. Historical: - Allergies: 14:07 No Known Allergies; ss - PMHx: 14:07 Diabetes - NIDDM; Hypertension; Kidney stones; ss - PSHx: 14:07 Lithotripsy; ss - Family history:: not pertinent. ROS: 16:48 Constitutional: Negative for fever, chills, and weight loss, Cardiovascular: Negative rt for chest pain, palpitations, and edema, MS/Extremity: Negative for injury and deformity, Skin: Negative for injury, rash, and discoloration, Neuro: Negative for headache, weakness, numbness, tingling, and seizure, Psych: Negative for depression, anxiety, suicide ideation, homicidal ideation, and hallucinations. 16:48 Respiratory: Positive for cough, shortness of breath. 16:48 Abdomen/GI: Positive for diarrhea, Negative for abdominal pain. Exam: 16:48 Constitutional: This is a well developed, well nourished patient who is awake, alert, rt and in no acute distress. Head/Face: Normocephalic, atraumatic. Chest/axilla: Normal chest wall appearance and motion. Nontender with no deformity. No lesions are appreciated. Cardiovascular: Regular rate and rhythm with a normal S1 and S2. No gallops, murmurs, or rubs. Normal PMI, no JVD. No pulse deficits. Respiratory: Lungs have equal breath sounds bilaterally, clear to auscultation and percussion. No rales, rhonchi or wheezes noted. No increased work of breathing, no retractions or nasal flaring. Abdomen/GI: Soft, non-tender, with normal bowel sounds. No distension or tympany. No guarding or rebound. No evidence of tenderness throughout. Skin: Warm, dry with normal turgor. Normal color with no rashes, no lesions, and no evidence of cellulitis. MS/ Extremity: Pulses equal, no cyanosis. Neurovascular intact. Full, normal range of motion. Neuro: Awake and alert, GCS 15, oriented to person, place, time, and situation. Cranial nerves II-XII grossly intact. Motor strength 5/5 in all extremities. Sensory grossly intact. Cerebellar exam normal. Normal gait. Psych: Awake, alert, with orientation to person, place and time. Behavior, mood, and affect are within normal limits. 16:48 ECG was reviewed by the Attending Physician. Vital Signs: 14:01 BP 178 / 91; Pulse 88; Resp 18; Pulse Ox 99% on R/A; ss 14:04 Temp 98.2(O); ss MDM: 14:07 Patient medically screened. rt 17:52 Differential diagnosis: Colitis, gastroenteritis, viral syndrome. Data reviewed: vital rt signs, nurses notes, old medical records, lab test result(s), EKG, radiologic studies. Independent interpretation of the following test(s) in the Emergency Department CT Scan: My interpretation is No inflammation seen on the colon interpretation of the CT scan images. Counseling: I had a detailed discussion with the patient and/or guardian regarding: the historical points, exam findings, and any diagnostic results supporting the discharge/admit diagnosis, lab results, radiology results, the need for outpatient follow up. 02/10 14:07 Order name: CBC with Diff; Complete Time: 15:48 rt 02/10 14:07 Order name: CMP; Complete Time: 15:48 rt 02/10 14:07 Order name: Lipase; Complete Time: 15:48 rt 02/10 14:07 Order name: Troponin High Sensitivity; Complete Time: 15:48 rt 02/10 14:07 Order name: BNP; Complete Time: 15:48 rt 02/10 14:07 Order name: SARS RAPID; Complete Time: 15:48 rt 02/10 14:07 Order name: Influenza Screen (a \T\ B); Complete Time: 15:48 rt 02/10 15:46 Order name: Abdomen ; Complete Time: 17:42 EDMS 02/10 14:07 Order name: EKG; Complete Time: 14:08 rt 02/10 14:07 Order name: EKG - Nurse/Tech; Complete Time: 14:35 rt EC:48 Rate is 71 beats/min. Rhythm is regular, Normal Sinus Rhythm with Right bundle branch rt block. QRS Garrison is Normal. RI interval is normal. QRS interval is normal. QT interval is normal. No Q waves. Interpreted by me. Administered Medications: No medications were administered Disposition Summary: 02/10/23 17:49 Discharge Ordered Location: Home rt Problem: new rt Symptoms: have improved rt Condition: Stable rt Diagnosis - Diarrhea, unspecified rt Followup: rt - With: Private Physician - When: 2 - 3 days - Reason: Discharge Instructions: - Discharge Summary Sheet rt - Diarrhea, Adult rt Forms: - Medication Reconciliation Form rt - Thank You Letter rt - Antibiotic Education rt - Prescription Opioid Use rt - [email or web address] rt Signatures: Dispatcher [employer] Nini Arceo, RN RN ss Canelo Ritchie MD MD rt Corrections: (The following items were deleted from the chart) 14:07 14:07 PMHx: asthbestosis; [facility] 15:46 14:08 Abdomen Pelvis W Con+CT.RAD.BRZ ordered. EDWI EDMS
[2023-02-10 18:50] VITALS: BP 178/91; O2SAT 99
[2023-02-10 18:51] VITALS: TEMP 98.2
--- NOTE | 2023-02-10 20:33 | EKG ---
Test Date: 2023-02-10 Test Time: 14:44:39 Principal Java Software Engineer: SILVA MEASUREMENT RESULTS: Intervals: Rate: 71 HI: 240 QRSD: 142 QT: 424 QTc: 460 [place]: P: 79 HI: 240 QRS: 82 T: 53 INTERPRETIVE STATEMENTS: Sinus rhythm with 1st degree AV block Right bundle branch block Abnormal ECG Compared to ECG 08/13/2021 22:40:48 Sinus bradycardia no longer present Electronically Signed On 02-10-23 20:32:30 CDT by Alejandro Yap
== END 2023-02-10 18:01 | disposition home or self-care (01) ==
LOC: ER 13:52
DX: R19.7 Diarrhea, unspecified (principal); R05.9 Cough, unspecified; E11.9 Type 2 diabetes mellitus without complications; I10 Essential (primary) hypertension; Z20.822 Contact with and (suspected) exposure to COVID-19
CPT/HCPCS: 36415; 74176; 80053; 83690; 83880; 84484; 85025; 87804; 87811; 93005

== ENCOUNTER 2023-02-27 03:02 | Emergency (ER) | payer OTHER ==
--- OUTSIDE RECORDS SUMMARY | 2023-02-27 03:03 | XMS REPORT | Continuity of Care Document ---
:1940 Author Organization [facility] t Address [address] [place] [id number] Care Team Providers Name Role Phone Lalo [...] Facility Department ID 2023-01-08 Outpatient BRIANNA Munroe [id number] Common 13:53:03 Lalo [id number] [facility] Results This patient has no known results.
[2023-02-27 03:23] LABS: Absolute Lymphocytes (CBC) 2.1 K/uL (0.7-4.9); Hematocrit 40.9 % (39.6-49.0); Lymphocytes % 30.7 % (15.3-44.8); MCV 92.7 fL (80-100); RBC Red Blood Cell Count 4.42 M/uL (4.33-5.43)
[2023-02-27] MEDS ORDERED: dexAMETHasone 10 MG/ML VIAL ONE (03:23)
[2023-02-27 03:26] LABS: Protime INR 1.09
[2023-02-27 03:40] LABS: Potassium 3.8 mEq/L (3.5-5.1); Troponin High Sensitivity 5.1 pg/mL (<58.9)
[2023-02-27] MEDS ORDERED: NA CHLORIDE 0.9% 500 ML ONE (03:59)
--- NOTE | 2023-02-27 05:13 | EDPHYS ---
Physician Documentation [facility] Name: Yeyo Pelayo Age: 82 yrs Sex: Male : 1940 Arrival Date: 02/27/2023 Time: 03:02 Bed 2 Private MD: ED Physician Jean Madera HPI: 02/27 03:13 This 82 yrs old Male presents to ER via Wheelchair with complaints of Breathing rn Difficulty. 03:13 The patient has shortness of breath at rest. Onset: The symptoms/episode began/occurred rn yesterday. Duration: The symptoms are intermittent. The patient's shortness of breath is aggravated by nothing, is alleviated by nothing. Severity of symptoms: At their worst the symptoms were mild in the emergency department the symptoms are unchanged. The patient has experienced similar episodes in the past. The patient has not recently seen a physician. Pt reports trouble breathing and feels like neck is swelling. No fever. No trauma. No difficulty swallowing. No swelling of neck or tongue. NO new meds. . 03:13 Pt has been seen numerous times for nasopharyngeal complaints. . rn Historical: - PMHx: 03:13 Diabetes - NIDDM; Hypertension; Kidney stones; kd3 - PSHx: 03:13 Lithotripsy; kd3 - Immunization history:: Adult Immunizations. - Social history:: Smoking status: Patient denies any tobacco usage or history of. - Family history:: not pertinent. - Hospitalizations: : No recent hospitalization is reported. ROS: 03:13 Constitutional: Negative for fever, chills, and weight loss, Eyes: Negative for injury, rn pain, redness, and discharge, ENT: + subjective swelling of neck/throat Cardiovascular: Negative for chest pain, palpitations, and edema, Respiratory: Negative for wheezing, and pleuritic chest pain Abdomen/GI: Negative for abdominal pain, nausea, vomiting, diarrhea, and constipation, MS/Extremity: Negative for injury and deformity, Skin: Negative for injury, rash, and discoloration, Neuro: Negative for headache, weakness, numbness, tingling, and seizure. Exam: 03:13 Constitutional: This is a well developed, well nourished patient who is awake, alert, rn and in no acute distress. Head/Face: Normocephalic, atraumatic. ENT: dry MM, thick linear mucus on back of pharynx, no swelling noted, no stridor Cardiovascular: Regular rate and rhythm. No pulse deficits. Respiratory: No increased work of breathing, no retractions or nasal flaring. Clear bilateral breath sounds. Abdomen/GI: Soft, non-tender Skin: Warm, dry MS/ Extremity: Pulses equal, no cyanosis. Neuro: Awake and alert, GCS 15 Vital Signs: 03:10 BP 194 / 93; Pulse 88; Resp 16; Pulse Ox 100% on R/A; Weight 75.75 kg; Height 6 ft. 1 kd3 in. ; 04:26 BP 174 / 76; Pulse 70; Resp 15 S; Pulse Ox 100% on R/A; lg3 05:21 BP 137 / 65; Pulse 64; Resp 16; Temp 98; Pulse Ox 99% on R/A; rv 03:10 Body Mass Index 22.03 (75.75 kg, 185.42 cm) kd3 [place] Coma Score: 05:22 Eye Response: spontaneous(4). Motor Response: obeys commands(6). Verbal Response: rv oriented(5). Total: 15. MDM: 03:11 Patient medically screened. rn 03:43 ED course: elevated creatinine, unable to perform contrast study, patient's baseline rn seems to be 1.7. 05:10 Differential diagnosis: Anxiety Reaction dehydration, viral infection, rhinitis, rn anxiety, mass, swelling. Data reviewed: vital signs, nurses notes, lab test result(s), radiologic studies, CT scan, and as a result, I will discharge patient. Counseling: I had a detailed discussion with the patient and/or guardian regarding: the historical points, exam findings, and any diagnostic results supporting the discharge/admit diagnosis, lab results, radiology results, the need for outpatient follow up, to return to the emergency department if symptoms worsen or persist or if there are any questions or concerns that arise at home. Response to treatment: the patient's symptoms have markedly improved after treatment, and as a result, I will discharge patient. Special discussion: I discussed with the patient/guardian in detail that at this point there is no indication for admission to the hospital. It is understood, however, that if the symptoms persist or worsen the patient needs to return immediately for re-evaluation. Based on the history and exam findings, there is no indication for further emergent testing or inpatient evaluation. I discussed with the patient/guardian the need to see the primary care provider for further evaluation of the symptoms. ED course: Pt back to baseline, feels much better, speaking better, ct neck without acute findings. Will dc home with return precautions and instructions for better hydration. Patient happy for care he received. . 02/27 03:13 Order name: Basic Metabolic Panel; Complete Time: 03:41 rn 02/27 03:13 Order name: CBC with Diff; Complete Time: 03:41 rn 02/27 03:13 Order name: NT PRO-BNP; Complete Time: 03:41 rn 02/27 03:13 Order name: PT-INR; Complete Time: 03:41 rn 02/27 03:13 Order name: Troponin HS; Complete Time: 03:41 rn 02/27 03:13 Order name: XRAY Chest (1 view) rn 02/27 03:51 Order name: Soft Tissue Neck Wo Contr EDMS 02/27 03:13 Order name: EKG; Complete Time: 03:14 rn 02/27 03:13 Order name: Cardiac monitoring; Complete Time: 03:14 rn 02/27 03:13 Order name: EKG - Nurse/Tech; Complete Time: 03:14 rn 02/27 03:13 Order name: IV Saline Lock; Complete Time: 03:14 rn 02/27 03:13 Order name: Labs collected and sent; Complete Time: 03:14 rn 02/27 03:13 Order name: O2 Per Protocol; Complete Time: 03:14 rn 02/27 03:13 Order name: O2 Sat Monitoring; Complete Time: 03:14 rn Administered Medications: 03:19 Drug: Decadron - Dexamethasone IVP 10 mg Route: IVP; Site: right forearm; lg3 05:22 Follow up: Response: No adverse reaction; Marked relief of symptoms rv 04:09 Drug: NS 0.9% IV 500 ml Route: IV; Rate: bolus; Site: right forearm; rv 05:22 Follow up: IV Status: Completed infusion; IV Intake: 500ml rv Disposition Summary: 02/27/23 05:12 Discharge Ordered Location: Home rn Problem: new rn Symptoms: have improved rn Condition: Stable rn Diagnosis - Dehydration rn - Dyspnea, unspecified rn Followup: rn - With: Private Physician - When: As needed - Reason: Recheck today's complaints, Re-evaluation by your physician Discharge Instructions: - Discharge Summary Sheet rn - Dehydration, Adult rn - Shortness of Breath, Adult rn Forms: - Medication Reconciliation Form rn - Thank You Letter rn - Antibiotic cuff turner - Prescription Opioid Use rn - Patient Portal Instructions rn Signatures: Dispatcher [employer] EDMS Jean Madera MD MD rn Vicente, Ronaldo RN RN Marika Mobley RN RN lg3 Whitney Goodwin RN RN kd3 Corrections: (The following items were deleted from the chart) 03:51 03:14 Soft Tissue Neck W/Contr+CT.RAD.BRZ ordered. EDWV EDWV
--- NOTE | 2023-02-27 05:13 | ER ---
Nurse's Notes [facility] Name: Yeyo Pelayo Age: 82 yrs Sex: Male : 1940 Arrival Date: 02/27/2023 Time: 03:02 Bed 2 Private MD: Diagnosis: Dehydration;Dyspnea, unspecified Presentation: 02/27 03:10 Chief complaint: Patient states: I FEEL LIKE I AM HAVING A HARD TIME BREATHING AND IT kd3 FEELS LIKE I HAVE SOMETHING STUCK IN MY THROAT. IT STARTED TONIGHT AND HAS PROGRESSIVELY GOTTEN WORSE. I DO NOT THINK I CHOCKED ON ANYTHING. Coronavirus screen: Vaccine status:. Ebola Screen: No symptoms or risks identified at this time. Initial Sepsis Screen: Does the patient meet any 2 criteria? No. Patient's initial sepsis screen is negative. Does the patient have a suspected source of infection? No. Patient's initial sepsis screen is negative. Risk Assessment: Do you want to hurt yourself or someone else? Patient reports no desire to harm self or others. Onset of symptoms was February 27, 2023. 03:10 Method Of Arrival: Wheelchair kd3 03:10 Acuity: KEN 3 kd3 Triage Assessment: 03:13 General: Appears in no apparent distress. Behavior is anxious. Pain: Complains of pain kd3 in neck. Respiratory: Reports shortness of breath Onset: The symptoms/episode began/occurred today, the patient has moderate shortness of breath. 03:13 Respiratory: Breath sounds are clear bilaterally. kd3 Historical: - PMHx: 03:13 Diabetes - NIDDM; Hypertension; Kidney stones; kd3 - PSHx: 03:13 Lithotripsy; kd3 - Immunization history:: Adult Immunizations. - Social history:: Smoking status: Patient denies any tobacco usage or history of. - Family history:: not pertinent. - Hospitalizations: : No recent hospitalization is reported. Screenin:[address] [facility] ED Fall Risk Assessment (Adult) History of falling in the last 3 months, lg3 including since admission No falls in past 3 months (0 pts). Abuse screen: Denies threats or abuse. Denies injuries from another. Nutritional screening: No deficits noted. Tuberculosis screening: No symptoms or risk factors identified. Assessment: 03:19 General: Appears in no apparent distress. comfortable, Behavior is cooperative, lg3 anxious. Pain: Denies pain. Neuro: No deficits noted. Wang Agitation-Sedation Scale (RASS): 0 - Alert and Calm Level of Consciousness is awake, alert, obeys commands, Oriented to person, place, time, situation. Cardiovascular: No deficits noted. Denies chest pain, Heart tones S1 S2 present Capillary refill < 3 seconds Clubbing of nail beds is absent JVD is absent Patient's skin is warm and dry. Rhythm is sinus rhythm. Respiratory: No deficits noted. Reports shortness of breath Airway is patent Respiratory effort is even, unlabored, Respiratory pattern is regular, symmetrical, Breath sounds are clear bilaterally. GI: No deficits noted. No signs and/or symptoms were reported involving the gastrointestinal system. Abdomen is flat, non-distended, Bowel sounds present X 4 quads. Abd is soft and non tender X 4 quads. : No deficits noted. No signs and/or symptoms were reported regarding the genitourinary system. EENT: No deficits noted. Oral mucosa is moist. Reports mucus in the throat. Derm: No deficits noted. No signs and/or symptoms reported regarding the dermatologic system. Skin is intact, is healthy with good turgor, Skin is dry, Skin is normal, Skin temperature is warm. Musculoskeletal: No deficits noted. No signs and/or symptoms reported regarding the musculoskeletal system. Circulation, motion, and sensation intact. Range of motion: intact in all extremities. 04:26 Reassessment: Patient appears in no apparent distress at this time. No changes from lg3 previously documented assessment. Patient and/or family updated on plan of care and expected duration. Pain level reassessed. Patient is alert, oriented x 3, equal unlabored respirations, skin warm/dry/pink. Vital Signs: 03:10 BP 194 / 93; Pulse 88; Resp 16; Pulse Ox 100% on R/A; Weight 75.75 kg; Height 6 ft. 1 kd3 in. ; 04:26 BP 174 / 76; Pulse 70; Resp 15 S; Pulse Ox 100% on R/A; lg3 05:21 BP 137 / 65; Pulse 64; Resp 16; Temp 98; Pulse Ox 99% on R/A; rv 03:10 Body Mass Index 22.03 (75.75 kg, 185.42 cm) kd3 [place] Coma Score: 05:22 Eye Response: spontaneous(4). Motor Response: obeys commands(6). Verbal Response: rv oriented(5). Total: 15. ED Course: 03:09 Patient arrived in ED. jj6 03:11 Jean Madera MD is Attending Physician. rn 03:13 Triage completed. kd3 03:13 Arm band placed on right wrist. kd3 03:14 Kirill Escobar, RN is Primary Nurse. rv 03:14 Inserted saline lock: 20 gauge in right forearm, using aseptic technique. Blood rv collected. 03:19 Patient has correct armband on for positive identification. Placed in gown. Bed in low lg3 position. Call light in reach. Side rails up X 1. Client placed on continuous cardiac and pulse oximetry monitoring. NIBP monitoring applied. night monitor on. Door closed. Noise minimized. Warm blanket given. 03:19 Patient maintains SpO2 saturation greater than 95% on room air. lg3 04:03 Soft Tissue Neck Wo Contr In Process Unspecified. EDMS 05:01 XRAY Chest (1 view) In Process Unspecified. EDMS 05:22 No provider procedures requiring assistance completed. IV discontinued, intact, rv bleeding controlled, No redness/swelling at site. Pressure dressing applied. 05:23 Provided Education on: hydration. rv Administered Medications: 03:19 Drug: Decadron - Dexamethasone IVP 10 mg Route: IVP; Site: right forearm; lg3 05:22 Follow up: Response: No adverse reaction; Marked relief of symptoms rv 04:09 Drug: NS 0.9% IV 500 ml Route: IV; Rate: bolus; Site: right forearm; rv 05:22 Follow up: IV Status: Completed infusion; IV Intake: 500ml rv Medication: 03:27 VIS not applicable for this client. rv Intake: 05:22 IV: 500ml; Total: 500ml. rv Outcome: 05:12 Discharge ordered by . rn 05:22 Discharged to home ambulatory. rv 05:22 Condition: improved 05:22 Discharge instructions given to patient, Instructed on discharge instructions, follow up and referral plans. Demonstrated understanding of instructions, follow-up care. 05:23 Patient left the ED. rv Signatures: Dispatcher [employer] EDMS Jean Madera MD MD rn Vicente, Ronaldo, RN RN Marika Mobley RN RN lg3 Helen Benton jj6 Whitney Goodwin, RN RN kd3
--- NOTE | 2023-02-27 12:29 | RAD REPORT ---
EXAM DESCRIPTION: RAD - Chest Single View - 02/27/2023 5:00 am CLINICAL HISTORY: 82 years Male DYSPNEA COMPARISON: Chest x-ray 02/06/2023 FINDINGS: Lung volumes adequate. Cardiac silhouette is normal in size. No pneumothorax. No large pleural effusion. No focal consolidation. No acute bony finding. IMPRESSION: No acute cardiopulmonary findings. Electronically signed by: Favio Coombs MD 02/27/2023 5:10 AM CDT Due to temporary technical issues with the PACS/Fluency reporting system, reports are being signed by the in house radiologists without review as a courtesy to insure prompt reporting. The interpreting radiologist is fully responsible for the content of the report.
--- NOTE | 2023-02-27 12:31 | RAD REPORT ---
EXAM DESCRIPTION: CT - Soft Tissue Neck Wo Contr - 02/27/2023 6:35 am CLINICAL HISTORY: The patient is 82 years old and is Male; sob, subjective neck swelling [facility] M AIN TECHNIQUE: Axial computed tomography images of the neck without intravenous contrast. Sagittal and coronal reformatted images were created and reviewed. This CT exam was performed using one or more of the following dose reduction techniques: automated exposure control, adjustment of the mA and/o r kV according to patient size, and/or use of iterative reconstruction technique. COMPARISON: No relevant prior studies available. FINDINGS: OROPHARYNX: Unremarkable. No significant tonsillar enlargement. HYPOPHARYNX: Unremarkable. LARYNX: Unremarkable. Normal epiglottis. TRACHEA: Unremarkable. RETROPHARYNGEAL SPACE: Unremarkable. SUBMANDIBULAR/PAROTID GLANDS: Unremarkable. Glands are normal in size. THYROID: Unremarkable. No enlarged or calcified nodules. BONES/JOINTS: Multilevel cervical spondylosis with no acute osseous abnormality. No significant laura tebral or facet subluxation. SOFT TISSUES: Unremarkable. VASCULATURE: Mild calcified atherosclerosis of the aortic arch and proximal right brachiocephalic a nd left subclavian arteries. Moderate left and dense right carotid artery calcification. LYMPH NODES: Unremarkable. No lymphadenopathy. ORBITS: Bilateral lens replacements. LUNG APICES: Trace biapical scarring. IMPRESSION: Allowing for lack of intravenous contrast, no acute findings. Specifically, no asymmetri c mass or mass effect identified within the soft tissues of the neck. Electronically signed by: Clemente Hart MD 02/27/2023 4:36 AM CDT Due to temporary technical issues with the PACS/Fluency reporting system, reports are being signed by the in house radiologists without review as a courtesy to insure prompt reporting. The interpreting radiologist is fully responsible for the content of the report.
--- NOTE | 2023-03-02 11:53 | EKG ---
Test Date: 2023-02-27 Test Time: 03:08:31 Barrel Drum Cutter: RV MEASUREMENT RESULTS: Intervals: Rate: 85 SD: 242 QRSD: 136 QT: 404 QTc: 480 Frazer: P: 59 SD: 242 QRS: 65 T: 38 INTERPRETIVE STATEMENTS: Sinus rhythm with 1st degree AV block Right bundle branch block Abnormal ECG Compared to ECG 02/10/2023 14:44:39 No significant changes Electronically Signed On 03-02-23 11:47:28 CDT by Josh Osei
== END 2023-02-27 05:23 | disposition home or self-care (01) ==
LOC: ER 03:02
DX: E86.0 Dehydration (principal); R06.00 Dyspnea, unspecified; I10 Essential (primary) hypertension; E11.9 Type 2 diabetes mellitus without complications
CPT/HCPCS: 96361; 93005; 85025; 80048; 36415; 85610; 84484; 83880; 70490; 71045; 96374; 99285; J1100; J7040

== ENCOUNTER 2023-06-18 02:10 | Emergency (ER) | payer OTHER ==
--- OUTSIDE RECORDS SUMMARY | 2023-06-18 02:14 | XMS REPORT | Continuity of Care Document ---
:1940 Author Organization [facility] t Address [address] [place] [id number] Care Team Providers Name Role Phone Lalo [...] Facility Department ID 2023-01-08 Outpatient BRIANNA Munroe [id number] Common 13:53:03 Lalo [id number] [facility] Results This patient has no known results.
[2023-06-18] MEDS ORDERED: NA CHLORIDE 0.9% 100 ML ONE (03:03)
[2023-06-18] MEDS ORDERED: CEFTRIAXONE 1000 MG/VIAL ONE (03:03)
[2023-06-18] MEDS ORDERED: ACETAMINOPHEN 325 MG TABLET ONE (03:03)
[2023-06-18] MEDS ORDERED: NA CHLORIDE 0.9% 0 ML ONE (03:03)
[2023-06-18 03:05] LABS: Absolute Lymphocytes (CBC) 2.1 K/uL (0.7-4.9); Hematocrit 47.3 % (39.6-49.0); Lymphocytes % 29.3 % (15.3-44.8); MPV 7.2 fL (7.6-11.3); Platelets 214 thou/uL (152-406); RBC Red Blood Cell Count 4.98 M/uL (4.33-5.43)
[2023-06-18 03:22] LABS: ALT/SGPT 53 U/L (16-61); AST/SGOT 24 U/L (15-37); Albumin 3.9 g/dL (3.4-5.0); Alkaline Phosphatase 112 U/L (45-117); BUN Blood Urea Nitrogen 26 mg/dL (7-18); Bicarbonate 27 mEq/L (21-32); Bilirubin Total 0.3 mg/dL (0.2-1.0); Glomerular Filtration Rate 45 ml/min (=/>90); Glucose Level 133 mg/dL (74-106); Magnesium 2.7 mg/dL (1.6-2.4); NT PRO-BNP 221 pg/mL (<450); Potassium 3.5 mEq/L (3.5-5.1); Protein, Total 8.3 g/dL (6.4-8.2); Sodium Level 138 mEq/L (136-145); Troponin High Sensitivity 8.2 pg/mL (<58.9)
[2023-06-18 03:44] LABS: Bilirubin Direct < 0.1 mg/dL (0-0.2); Bilirubin Indirect, Calculated ND mg/dL (0.2-0.8)
[2023-06-18 03:57] LABS: Specific Gravity 1.007 (1.005-1.030); Urine Bacteria None Seen /HPF (<20); Urine Bilirubin NEGATIVE (Negative); Urine Blood Negative (Negative); Urine Clarity Turbid (Clear); Urine Color Colorless (Yellow); Urine Glucose NEGATIVE (Negative); Urine Protein TRACE (Negative); Urine RBC None Seen /HPF (None Seen); Urine Urobilinogen Normal (Normal); Urine pH 6.5 (5.0-7.0)
[2023-06-18] MEDS ORDERED: NA CHLORIDE 0.9% 1,000 ML ONE (04:53)
[2023-06-18] MEDS ORDERED: Levofloxacin500mg IV 500 MG/100 ML BAG IV ONE (04:53)
--- NOTE | 2023-06-18 04:55 | ER ---
Nurse's Notes [facility] Name: Yeyo Pelayo Age: 82 yrs Sex: Male : 1940 Arrival Date: 06/18/2023 Time: 02:10 Bed 2 Private MD: Diagnosis: UTI/ Urinary tract infection, site not specified;Acute cystitis;Enlarged prostate with lower urinary tract symptoms Presentation: 06/18 02:38 Chief complaint: Patient states: to have frequent urination, "I have had to pee every jw7 hour for the last few days", and has chills. Coronavirus screen: At this time, the client does not indicate any symptoms associated with coronavirus-19. Ebola Screen: No symptoms or risks identified at this time. Initial Sepsis Screen: Does the patient meet any 2 criteria? No. Patient's initial sepsis screen is negative. Does the patient have a suspected source of infection? No. Patient's initial sepsis screen is negative. Risk Assessment: Do you want to hurt yourself or someone else? Patient reports no desire to harm self or others. Onset of symptoms was June 15, 2023. 02:38 Acuity: KEN 3 jw7 02:38 Method Of Arrival: Wheelchair jw7 Triage Assessment: 02:40 General: Appears in no apparent distress. uncomfortable, Behavior is calm, cooperative, jw7 appropriate for age. Pain: Denies pain. EENT: No deficits noted. No signs and/or symptoms were reported regarding the EENT system. Neuro: Wang Agitation-Sedation Scale (RASS): 0 - Alert and Calm Level of Consciousness is awake, alert, obeys commands, Oriented to person, place, time, situation. Cardiovascular: Heart tones S1 S2 present Capillary refill < 3 seconds Clubbing of nail beds is absent JVD is absent Patient's skin is warm and dry. Respiratory: Airway is patent Trachea midline Respiratory effort is even, unlabored, Respiratory pattern is regular, symmetrical. GI: Abdomen is flat, non-distended, Bowel sounds present X 4 quads. Abd is soft and non tender X 4 quads. : Reports urinary frequency, since June 15, 2023. Derm: Skin is intact, is fragile, Skin is dry, Skin is normal, Skin temperature is warm. Musculoskeletal: Circulation, motion, and sensation intact. Range of motion: intact in all extremities. Historical: - Allergies: 02:40 No Known Allergies; jw7 - Home Meds: 02:40 glimepiride 4 mg Oral tablet 2 times per day [Active]; metoprolol tartrate 25 mg Oral jw7 tablet every 12 hours [Active]; - PMHx: 02:40 Diabetes - NIDDM; Hypertension; Kidney stones; jw7 - PSHx: 02:40 Lithotripsy; jw7 - Immunization history:: Adult Immunizations up to date, Client reports receiving the 2nd dose of the Covid vaccine, Pneumococcal vaccine is up to date, Flu vaccine is up to date. - Social history:: Smoking status: Patient denies any tobacco usage or history of. Patient/guardian denies using alcohol, street drugs, IV drugs. Screenin:43 [facility] ED Fall Risk Assessment (Adult) History of falling in the last 3 months, jw7 including since admission No falls in past 3 months (0 pts) Confusion or Disorientation No (0 pts) Intoxicated or Sedated No (0 pts) Impaired Gait Yes (1 pt) Mobility Assist Device Used No (0 pt) Altered Elimination No (0 pt) Score/Fall Risk Level 0 - 2 = Low Risk Oriented to surroundings, Maintained a safe environment. Abuse screen: Denies threats or abuse. Denies injuries from another. Nutritional screening: No deficits noted. Tuberculosis screening: No symptoms or risk factors identified. Assessment: 02:44 General: see triage assessment. jw7 03:30 Reassessment: PT RETURNED FROM CT. bp 03:35 Reassessment: Patient appears in no apparent distress at this time. No changes from jw7 previously documented assessment. Patient and/or family updated on plan of care and expected duration. Pain level reassessed. Patient is alert, oriented x 3, equal unlabored respirations, skin warm/dry/pink. 04:50 Reassessment: Patient appears in no apparent distress at this time. No changes from jw7 previously documented assessment. Patient and/or family updated on plan of care and expected duration. Pain level reassessed. Patient is alert, oriented x 3, equal unlabored respirations, skin warm/dry/pink. 05:21 General: Discharge pending completion of IV ABX. jw7 Vital Signs: 02:38 BP 217 / 98; Pulse 75; Resp 24 S; Temp 98.5; Pulse Ox 100% on R/A; Weight 60.5 kg; jw7 Height 6 ft. 1 in. ; Pain 0/10; 03:30 BP 191 / 76; Pulse 60; Resp 20; Pulse Ox 100% ; bp 04:50 BP 171 / 87; Pulse 63; Resp 21 S; Pulse Ox 100% on R/A; jw7 05:58 BP 149 / 79; Pulse 62; Resp 16; Pulse Ox 99% ; bp 02:38 Body Mass Index 17.60 (60.50 kg, 185.42 cm) jw7 02:38 Pain Scale: Adult jw7 ED Course: 02:15 Patient arrived in ED. ag3 02:16 Kyree Cox MD is Attending Physician. juana 02:18 Jeff Sutherland, CACHORRO is Primary Nurse. bp 02:40 Triage completed. jw7 02:40 Arm band placed on. jw7 02:42 XRAY Chest (1 view) In Process Unspecified. EDMS 02:43 Patient has correct armband on for positive identification. Placed in gown. Bed in low jw7 position. Call light in reach. 03:00 Inserted saline lock: 22 gauge in left forearm, using aseptic technique. Blood bp collected. 03:28 CT Stone Protocol In Process Unspecified. EDMS 03:56 Notified ED physician of a critical lab result(s). Lactate 2.9. kl 04:54 Seferino Phillip MD is Referral Physician. juana 05:06 No provider procedures requiring assistance completed. jw7 05:58 IV discontinued, intact, bleeding controlled, No redness/swelling at site. Pressure bp dressing applied. Administered Medications: 03:11 Drug: Rocephin IV 1 grams IV at per protocol once; Given slow IV push per pharmacy jw7 instructions Route: IV; Rate: per protocol; Site: left forearm; 04:33 Follow up: Response: No adverse reaction; IV Status: Completed infusion; IV Intake: jw7 100ml 03:11 Drug: NS 0.9% IV 1000 ml IV at 1 bolus Per protocol; 1000 mL bolus Route: IV; Rate: 1 jw7 bolus; Site: left forearm; 04:33 Follow up: Response: No adverse reaction; IV Status: Completed infusion; IV Intake: jw7 1000ml 03:11 Drug: Acetaminophen PO 650 mg PO once Route: PO; jw7 04:33 Follow up: Response: No adverse reaction jw7 04:47 Drug: levofloxacin IVPB 500 mg 100 ml IVPB once over 60 mins Volume: 100 ml; Route: jw7 IVPB; Infused Over: 60 mins; Site: left forearm; 05:58 Follow up: IV Status: Completed infusion; IV Intake: 1000ml bp 04:48 Not Given (Patient Refused): ns 0.9% 1000 ml IV at 1 bolus Per protocol; 1000 mL bolus jw7 05:22 Drug: Flomax PO 0.4 mg PO once Route: PO; jw7 05:53 Follow up: Response: No adverse reaction bp 05:22 Drug: Trimethoprim-Sulfamethoxazole PO (160 mg-800 mg (DS) 1 tablet PO once Route: PO; jw7 05:53 Follow up: Response: No adverse reaction bp Medication: 05:06 VIS not applicable for this client. jw7 Intake: 04:33 IV: 100ml; Total: 100ml. jw7 04:33 IV: 1000ml; Total: 1100ml. jw7 05:58 IV: 1000ml; Total: 2100ml. bp Outcome: 04:55 Discharge ordered by . juana 05:58 Discharged to home via wheelchair, bp 05:58 Condition: stable 05:58 Discharge instructions given to patient, Instructed on discharge instructions, follow up and referral plans. medication usage, Demonstrated understanding of instructions, follow-up care, medications, Prescriptions given X 3, 05:59 Patient left the ED. bp Signatures: Dispatcher [employer] EDMS Juliana Joseph RN RN kl Anderson, Corey, MD MD cha Peltier, Brian, RN RN bp Gomez, Alice 3 Nemo Mittal RN RN jw7 Corrections: (The following items were deleted from the chart) 04:46 04:46 levofloxacin IVPB 500 mg 100 ml IVPB in right forearm over 60 mins jw7 jw7 05:08 04:50 Pulse 63bpm; Resp 21bpm; Spontaneous; Pulse Ox 100% RA; jw7 jw7
--- NOTE | 2023-06-18 04:56 | EDPHYS ---
Physician Documentation [facility] Name: Yeyo Pelayo Age: 82 yrs Sex: Male : 1940 Arrival Date: 06/18/2023 Time: 02:10 Bed 2 Private MD: SEVERO Physician Kyree Cox HPI: 06/18 04:46 This 82 yrs old Male presents to ER via Wheelchair with complaints of Urinary juana Frequency, CHILLS. 04:46 The patient presents with urinary symptoms, dysuria, urinary frequency, every 1 juana hour(s). Onset: The symptoms/episode began/occurred 2 day(s) ago. Modifying factors: The symptoms are alleviated by nothing, the symptoms are aggravated by nothing. Associated signs and symptoms: Pertinent positives: dysuria, fever. Severity of symptoms: At their worst the symptoms were mild, in the emergency department the symptoms are unchanged. The patient has experienced similar episodes in the past, a few times. Historical: - Allergies: 02:40 No Known Allergies; jw7 - Home Meds: 02:40 glimepiride 4 mg Oral tablet 2 times per day [Active]; metoprolol tartrate 25 mg Oral jw7 tablet every 12 hours [Active]; - PMHx: 02:40 Diabetes - NIDDM; Hypertension; Kidney stones; jw7 - PSHx: 02:40 Lithotripsy; jw7 - Immunization history:: Adult Immunizations up to date, Client reports receiving the 2nd dose of the Covid vaccine, Pneumococcal vaccine is up to date, Flu vaccine is up to date. - Social history:: Smoking status: Patient denies any tobacco usage or history of. Patient/guardian denies using alcohol, street drugs, IV drugs. ROS: 04:49 Constitutional: Negative for fever, chills, and weight loss, Eyes: Negative for injury, juana pain, redness, and discharge, ENT: Negative for injury, pain, and discharge, Neck: Negative for injury, pain, and swelling, Cardiovascular: Negative for chest pain, palpitations, and edema, Respiratory: Negative for shortness of breath, cough, wheezing, and pleuritic chest pain, Abdomen/GI: Negative for abdominal pain, nausea, vomiting, diarrhea, and constipation, Back: Negative for injury and pain, MS/Extremity: Negative for injury and deformity, Skin: Negative for injury, rash, and discoloration, Neuro: Negative for headache, weakness, numbness, tingling, and seizure, Psych: Negative for depression, anxiety, suicide ideation, homicidal ideation, and hallucinations, Allergy/Immunology: Negative for hives, rash, and allergies, Endocrine: Negative for neck swelling, polydipsia, polyuria, polyphagia, and marked weight changes, Hematologic/Lymphatic: Negative for swollen nodes, abnormal bleeding, and unusual bruising, 04:49 : Positive for urinary symptoms, urinary frequency, small amounts, burning with urination, Exam: 04:49 Constitutional: This is a well developed, well nourished patient who is awake, alert, juana and in no acute distress. Head/Face: Normocephalic, atraumatic. Eyes: Pupils equal round and reactive to light, extra-ocular motions intact. Lids and lashes normal. Conjunctiva and sclera are non-icteric and not injected. Cornea within normal limits. Periorbital areas with no swelling, redness, or edema. ENT: Nares patent. No nasal discharge, no septal abnormalities noted. Tympanic membranes are normal and external auditory canals are clear. Oropharynx with no redness, swelling, or masses, exudates, or evidence of obstruction, uvula midline. Mucous membranes moist. Neck: Trachea midline, no thyromegaly or masses palpated, and no cervical lymphadenopathy. Supple, full range of motion without nuchal rigidity, or vertebral point tenderness. No Meningismus. Chest/axilla: Normal chest wall appearance and motion. Nontender with no deformity. No lesions are appreciated. Cardiovascular: Regular rate and rhythm with a normal S1 and S2. No gallops, murmurs, or rubs. Normal PMI, no JVD. No pulse deficits. Respiratory: Lungs have equal breath sounds bilaterally, clear to auscultation and percussion. No rales, rhonchi or wheezes noted. No increased work of breathing, no retractions or nasal flaring. Abdomen/GI: Soft, non-tender, with normal bowel sounds. No distension or tympany. No guarding or rebound. No evidence of tenderness throughout. Back: No spinal tenderness. No costovertebral tenderness. Full range of motion. Skin: Warm, dry with normal turgor. Normal color with no rashes, no lesions, and no evidence of cellulitis. MS/ Extremity: Pulses equal, no cyanosis. Neurovascular intact. Full, normal range of motion. Neuro: Awake and alert, GCS 15, oriented to person, place, time, and situation. Cranial nerves II-XII grossly intact. Motor strength 5/5 in all extremities. Sensory grossly intact. Cerebellar exam normal. Normal gait. Psych: Awake, alert, with orientation to person, place and time. Behavior, mood, and affect are within normal limits. 04:49 ECG was reviewed by the Attending Physician. 04:49 : CVA tenderness, is absent, Male external genitalia: normal, no abrasion, no discharge, no erythema, no injury, no swelling, no tenderness, no evidence of ulceration, Bladder: is normal, Sexual behavior: the patient is not sexually active, Vital Signs: 02:38 BP 217 / 98; Pulse 75; Resp 24 S; Temp 98.5; Pulse Ox 100% on R/A; Weight 60.5 kg; jw7 Height 6 ft. 1 in. ; Pain 0/10; 03:30 BP 191 / 76; Pulse 60; Resp 20; Pulse Ox 100% ; bp 04:50 BP 171 / 87; Pulse 63; Resp 21 S; Pulse Ox 100% on R/A; [facility] 05:58 BP 149 / 79; Pulse 62; Resp 16; Pulse Ox 99% ; bp 02:38 Body Mass Index 17.60 (60.50 kg, 185.42 cm) [facility] 02:38 Pain Scale: Adult [facility] MDM: 02:17 Patient medically screened. juana 04:52 Differential diagnosis: nonspecific abdominal pain, UTI, urinary retention, juana prostatitis, urethritis. Differential Diagnosis altered mental status, sepsis. Data reviewed: vital signs, nurses notes, lab test result(s), EKG, radiologic studies, CT scan, plain films. Consideration of Admission/Observation Escalation of care including admission/observation considered. I considered the following discharge prescriptions or medication management in the emergency department Medications were administered in the Emergency Department. See MAR. Independent interpretation of the following test(s) in the Emergency Department EKG: See my EKG interpretation above. Test considered but Not performed: Ultrasound no abd usg. Historians other than the Patient: EMS: ems well informed. Care significantly affected by the following chronic conditions: Diabetes, Hypertension, kidney stones. Counseling: I had a detailed discussion with the patient and/or guardian regarding the historical points, exam findings, and any diagnostic results supporting the discharge/admit diagnosis, lab results, radiology results, the need for outpatient follow up, for definitive care, a family practitioner, a urologist. 06/18 02:18 Order name: Basic Metabolic Panel; Complete Time: 03:48 [facility] 06/18 02:18 Order name: CBC with Diff; Complete Time: 03:33 [facility] 06/18 02:18 Order name: LFT's; Complete Time: 03:48 [facility] 06/18 02:18 Order name: Magnesium; Complete Time: 03:48 [facility] 06/18 02:18 Order name: NT PRO-BNP; Complete Time: 03:48 [facility] 06/18 02:18 Order name: PT-INR; Complete Time: 03:33 [facility] 06/18 02:18 Order name: Troponin HS; Complete Time: 03:48 [facility] 06/18 02:18 Order name: Blood Culture Adult (2) [facility] 06/18 02:18 Order name: Lactate w/ 2H reflex if indic.; Complete Time: 04:24 [facility] 06/18 02:18 Order name: Urinalysis w/ reflexes; Complete Time: 04:24 [facility] 06/18 02:18 Order name: Urine Culture [facility] 06/18 02:47 Order name: Glucose, Ancillary Testing; Complete Time: 03:33 [facility] 06/18 04:26 Order name: Lactate w/ 2H reflex if indic. [facility] 06/18 02:18 Order name: XRAY Chest (1 view) [facility] 06/18 02:18 Order name: CT Stone Protocol [facility] 06/18 02:18 Order name: EKG; Complete Time: 02:19 [facility] 06/18 02:18 Order name: Cardiac monitoring; Complete Time: 02:53 [facility] 06/18 02:18 Order name: EKG - Nurse/Tech; Complete Time: 02:53 [facility] 06/18 02:18 Order name: IV Saline Lock; Complete Time: 02:45 [facility] 06/18 02:18 Order name: Labs collected and sent; Complete Time: 02:45 [facility] 06/18 02:18 Order name: O2 Per Protocol; Complete Time: 02:45 [facility] 06/18 02:18 Order name: O2 Sat Monitoring; Complete Time: 02:45 [facility] EC:49 Rate is 65 beats/min. Rhythm is regular. QRS [place] is Normal. [place] interval is normal. QRS juana interval is normal. QT interval is normal. No Q waves. T waves are Normal. No ST changes noted. Clinical impression: NSR w/ Non-specific ST/T Changes and No evidence of ischemia. Interpreted by me. Reviewed by me. Administered Medications: 03:11 Drug: Rocephin IV 1 grams IV at per protocol once; Given slow IV push per pharmacy jw7 instructions Route: IV; Rate: per protocol; Site: left forearm; 04:33 Follow up: Response: No adverse reaction; IV Status: Completed infusion; IV Intake: jw7 100ml 03:11 Drug: NS 0.9% IV 1000 ml IV at 1 bolus Per protocol; 1000 mL bolus Route: IV; Rate: 1 jw7 bolus; Site: left forearm; 04:33 Follow up: Response: No adverse reaction; IV Status: Completed infusion; IV Intake: jw7 1000ml 03:11 Drug: Acetaminophen PO 650 mg PO once Route: PO; jw7 04:33 Follow up: Response: No adverse reaction jw7 04:47 Drug: levofloxacin IVPB 500 mg 100 ml IVPB once over 60 mins Volume: 100 ml; Route: jw7 IVPB; Infused Over: 60 mins; Site: left forearm; 05:58 Follow up: IV Status: Completed infusion; IV Intake: 1000ml bp 04:48 Not Given (Patient Refused): ns 0.9% 1000 ml IV at 1 bolus Per protocol; 1000 mL bolus jw7 05:22 Drug: Flomax PO 0.4 mg PO once Route: PO; jw7 05:53 Follow up: Response: No adverse reaction bp 05:22 Drug: Trimethoprim-Sulfamethoxazole PO (160 mg-800 mg (DS) 1 tablet PO once Route: PO; jw7 05:53 Follow up: Response: No adverse reaction bp Disposition Summary: 06/18/23 04:55 Discharge Ordered Notes: Location: Home juana Problem: new juana Symptoms: have improved juana Condition: Stable juana Diagnosis - UTI/ Urinary tract infection, site not specified juana - Acute cystitis juana - Enlarged prostate with lower urinary tract symptoms juana Followup: juana - With: Private Physician - When: 2 - 3 days - Reason: Recheck today's complaints, Continuance of care, Re-evaluation by your physician Followup: juana - With: Seferino Phillip MD - When: 2 - 3 days - Reason: Recheck today's complaints, Continuance of care, Re-evaluation by your physician Discharge Instructions: - Discharge Summary Sheet juana - Dysuria juana - Urinary Tract Infection, Adult juana - Urinary Tract Infection, Adult, [id number] juana - Benign Prostatic Hyperplasia [facility] Forms: - Medication Reconciliation Form juana - Thank You Letter juana - Antibiotic Education juana - Prescription Opioid Use juana - Patient Portal Instructions juana - Leadership Thank You Letter juana Prescriptions: - Flomax 0.4 mg Oral capsule - take 1 capsule ORAL route every 24 hours; 30 capsule; Refills: 0, Product [facility] Selection Permitted - Bactrim DS 800-160 mg Oral Tablet - take 1 tablet ORAL route every 12 hours for 10 days; 20 tablet; Refills: 0, [facility] Product Selection Permitted - levofloxacin 250 mg Oral tablet - take 1 tablet ORAL route once daily; 9 tablet; Refills: 0, Product Selection [facility] Permitted Signatures: Dispatcher [employer] Kyree Eubanks MD MD cha Waits, Jodi RN RN jw7 Jeff Sutherland RN bp
[2023-06-18] MEDS ORDERED: TAMSULOSIN 0.4 MG SR CAP ONE (05:24)
[2023-06-18] MEDS ORDERED: SMZ./TMP. 800/160 MG TABLET ONE ×2 (05:26→05:28)
[2023-06-18 06:23] VITALS: TEMP 98.5
[2023-06-18 06:31] VITALS: BP 149/79; O2SAT 99
--- NOTE | 2023-06-18 09:45 | EKG ---
Test Date: 2023-06-18 Test Time: 02:49:01 Medical Sociologist: МАРИЯ MEASUREMENT RESULTS: Intervals: Rate: 65 OR: 206 QRSD: 144 QT: 442 QTc: 459 [place]: P: 41 OR: 206 QRS: 48 T: 53 INTERPRETIVE STATEMENTS: Normal sinus rhythm Right bundle branch block Abnormal ECG Compared to ECG 03/09/2023 10:47:49 First degree AV block no longer present Electronically Signed On 06-18-23 09:44:51 CDT by Johs Osei
--- NOTE | 2023-06-18 10:59 | RAD REPORT ---
EXAM DESCRIPTION: CT Abdomen and Pelvis Without Intravenous Contrast CLINICAL HISTORY: UTI TECHNIQUE: Axial computed tomography images of the abdomen and pelvis without intravenous contrast. Sagittal and coronal reformatted images were created and reviewed. This CT exam was performed usi ng one or more of the following dose reduction techniques: automated exposure control, adjustment o f the mA and/or kV according to patient size, and/or use of iterative reconstruction technique. COMPARISON: CT Abdomen Pelvis dated 02/10/2023 FINDINGS: Lung bases: Unremarkable. No mass. No consolidation. ABDOMEN: Liver: Unremarkable. Gallbladder and bile ducts: Multiple gallstones. No gallbladder wall thickening or pericholecysti c fluid. No ductal dilation. Pancreas: Unremarkable. No ductal dilation. Spleen: Unremarkable. No splenomegaly. Adrenals: Unremarkable. No mass. Kidneys and ureters: Mild fullness of the renal collecting systems bilaterally. No renal or urete ral calculi. Stomach and bowel: Moderate stool. No bowel obstruction. No appreciable mucosal thickening. S cattered colonic diverticula without adjacent inflammatory change. PELVIS: Appendix: Normal caliber appendix. No findings to suggest acute appendicitis. Bladder: Mild to moderate circumferential urinary bladder wall thickening. There are a couple dep endent calculi. Reproductive: The prostate is enlarged. ABDOMEN and PELVIS: Intraperitoneal space: Unremarkable. No free air. No significant fluid collection. Bones/joints: Multilevel spondylosis. No acute fracture. No dislocation. Soft tissues: Small fat-containing umbilical hernia. Small to moderate fat-containing left inguin al hernia. Vasculature: Moderate to severe atherosclerotic disease. No abdominal aortic aneurysm. Lymph nodes: Unremarkable. No enlarged lymph nodes. IMPRESSION: 1. Mild to moderate circumferential urinary bladder wall thickening. This may be rel ated to bladder outlet obstruction. Please correlate clinically for cystitis. Bladder calculi are again demonstrated and which can be seen in the setting of stasis. 2. Mild fullness of the renal collecting systems bilaterally. No renal or ureteral calculi. Thi s appearance is nonspecific and could represent physiologic fullness. Please correlate clinically f or urinary tract infection. 3. Other findings as above. Electronically signed by: Stephenie Collier MD 06/18/2023 4:00 AM CDT Due to temporary technical issues with the PACS/Fluency reporting system, reports are being signed by the in house radiologist without review as a courtesy to ensure prompt reporting. The interpreting r adiologist is fully responsible for the content of the report.
--- NOTE | 2023-06-18 11:01 | RAD REPORT ---
EXAM DESCRIPTION: XR Chest, 1 View CLINICAL HISTORY: The patient is 82 years old and is Male; COUGH TECHNIQUE: Frontal view of the chest. COMPARISON: No relevant prior studies available. FINDINGS: Lungs: Unremarkable. No consolidation. Pleural space: Unremarkable. No pneumothorax. Heart: Unremarkable. Mediastinum: Unremarkable. Bones/joints: No acute findings. IMPRESSION: No acute findings in the chest. Electronically signed by: Prashant Wetzel MD 06/18/2023 3:00 AM CDT Due to temporary technical issues with the PACS/Fluency reporting system, reports are being signed by the in house radiologist without review as a courtesy to ensure prompt reporting. The interpreting r adiologist is fully responsible for the content of the report.
== END 2023-06-18 05:59 | disposition home or self-care (01) ==
LOC: ER 02:10
DX: N39.0 Urinary tract infection, site not specified (principal); N40.1 Benign prostatic hyperplasia with lower urinary tract symptoms; E11.9 Type 2 diabetes mellitus without complications; I10 Essential (primary) hypertension; Z87.442 Personal history of urinary calculi
CPT/HCPCS: 96365; 96367; 93005; 87040 ×2; 87088; 85025; 81001; 87086; 80048; 36415; 83735; 85610; 82947; 80076; 83605 ×2; 84484; 83880; 76377; 74176; 71045; 99284; 96366; J7030; J0696

== ENCOUNTER 2023-06-20 02:09 | Emergency (ER) | payer OTHER ==
--- OUTSIDE RECORDS SUMMARY | 2023-06-20 02:12 | XMS REPORT | Continuity of Care Document ---
:1940 Author Organization [facility] t Address [address] [place] [id number] Care Team Providers Name Role Phone Lalo [...] Facility Department ID 2023-01-08 Outpatient BRIANNA Munroe [id number] Common 13:53:03 Lalo [id number] [facility] Results This patient has no known results.
[2023-06-20 03:05] LABS: SARS-CoV-2 Antigen Rapid Res Negative (Negative)
[2023-06-20 03:28] LABS: Absolute Lymphocytes (CBC) 1.3 K/uL (0.7-4.9); Hematocrit 43.3 % (39.6-49.0); Lymphocytes % 13.9 % (15.3-44.8); MCV 94.4 fL (80-100); MPV 7.1 fL (7.6-11.3); Platelets 194 thou/uL (152-406); RBC Red Blood Cell Count 4.59 M/uL (4.33-5.43)
[2023-06-20 03:45] LABS: Albumin 3.5 g/dL (3.4-5.0); Bilirubin Total 0.3 mg/dL (0.2-1.0); Protein, Total 7.7 g/dL (6.4-8.2); Troponin High Sensitivity 11.1 pg/mL (<58.9)
[2023-06-20 03:46] LABS: Potassium 4.4 mEq/L (3.5-5.1)
--- NOTE | 2023-06-20 04:00 | EDPHYS ---
Physician Documentation [facility] Name: Yeyo Pelayo Age: 82 yrs Sex: Male : 1940 Arrival Date: 06/20/2023 Time: 02:09 Bed 8 Private MD: ED Physician Canelo Ritchie HPI: 06/20 02:36 This 82 yrs old Male presents to ER via Ambulatory with complaints of Shortness Of rt Breath, Anxiety. 02:36 Patient presents to the ED with shortness of breath starting tonight. Patient denies rt chest pain, other acute complaints at this time. The patient states that he was here couple days ago, reportedly coughed on by nurse, states that he is worried that he has COVID and cannot sleep due to this. Denies other acute complaints at this time, symptoms are mild in severity, no other aggravating or elevating factors.. Historical: - Allergies: 02:30 No Known Allergies; vc1 - PMHx: 02:30 Diabetes - NIDDM; Hypertension; Kidney stones; vc1 - PSHx: 02:30 Lithotripsy; vc1 - Immunization history:: Client reports receiving the 2nd dose of the Covid vaccine. - Social history:: Smoking status: Patient denies any tobacco usage or history of. - Family history:: not pertinent. ROS: 02:36 Constitutional: Negative for fever, chills, and weight loss, Cardiovascular: Negative rt for chest pain, palpitations, and edema, Abdomen/GI: Negative for abdominal pain, nausea, vomiting, diarrhea, and constipation, MS/Extremity: Negative for injury and deformity, Skin: Negative for injury, rash, and discoloration, Neuro: Negative for headache, weakness, numbness, tingling, and seizure, Psych: Negative for depression, anxiety, suicide ideation, homicidal ideation, and hallucinations, 02:36 Respiratory: Positive for shortness of breath, Negative for cough, Exam: 02:36 Constitutional: This is a well developed, well nourished patient who is awake, alert, rt and in no acute distress. Head/Face: Normocephalic, atraumatic. Chest/axilla: Normal chest wall appearance and motion. Nontender with no deformity. No lesions are appreciated. Cardiovascular: Regular rate and rhythm with a normal S1 and S2. No gallops, murmurs, or rubs. Normal PMI, no JVD. No pulse deficits. Respiratory: Lungs have equal breath sounds bilaterally, clear to auscultation and percussion. No rales, rhonchi or wheezes noted. No increased work of breathing, no retractions or nasal flaring. Abdomen/GI: Soft, non-tender, with normal bowel sounds. No distension or tympany. No guarding or rebound. No evidence of tenderness throughout. Skin: Warm, dry with normal turgor. Normal color with no rashes, no lesions, and no evidence of cellulitis. MS/ Extremity: Pulses equal, no cyanosis. Neurovascular intact. Full, normal range of motion. Neuro: Awake and alert, GCS 15, oriented to person, place, time, and situation. Cranial nerves II-XII grossly intact. Motor strength 5/5 in all extremities. Sensory grossly intact. Cerebellar exam normal. Normal gait. Psych: Awake, alert, with orientation to person, place and time. Behavior, mood, and affect are within normal limits. 02:58 ECG was reviewed by the Attending Physician. rt Vital Signs: 02:27 BP 157 / 128; Pulse 95; Resp 20; Temp 97.8; Pulse Ox 100% ; Weight 71.21 kg; Height 6 vc1 ft. 1 in. ; Pain 0/10; 04:06 BP 140 / 71; Pulse 89; Resp 18; Temp 98; Pulse Ox 99% ; rv 02:27 Body Mass Index 20.71 (71.21 kg, 185.42 cm) vc1 02:27 Pain Scale: Adult vc1 Eun Coma Score: 03:22 Eye Response: spontaneous(4). Motor Response: obeys commands(6). Verbal Response: la4 oriented(5). Total: 15. MDM: 02:22 Patient medically screened. rt 04:05 Differential diagnosis: Flu, COVID, pneumonia, pneumothorax, dyspnea. Data reviewed: rt vital signs, nurses notes, lab test result(s), EKG, radiologic studies. Consideration of Admission/Observation Escalation of care including admission/observation considered. No hypoxia, stable labs, unremarkable x-ray, no indications for admission. Independent interpretation of the following test(s) in the Emergency Department X-Ray: My interpretation is No pneumonia seen interpretation of x-ray images. Test considered but Not performed: CT: Very low suspicion for pulmonary embolism, CT angiogram not indicated. Counseling: I had a detailed discussion with the patient and/or guardian regarding the historical points, exam findings, and any diagnostic results supporting the discharge/admit diagnosis, lab results, radiology results, the need for outpatient follow up, to return to the emergency department if symptoms worsen or persist or if there are any questions or concerns that arise at home. 06/20 02:28 Order name: CBC with Diff; Complete Time: 03:31 rt 06/20 02:28 Order name: CMP; Complete Time: 03:48 rt 06/20 02:28 Order name: SARS RAPID; Complete Time: 03:12 rt 06/20 02:28 Order name: Influenza Screen (a \T\ B); Complete Time: 03:12 rt 06/20 02:28 Order name: Troponin High Sensitivity; Complete Time: 03:48 rt 06/20 02:28 Order name: BNP; Complete Time: 03:48 rt 06/20 02:28 Order name: Chest Single View XRAY rt 06/20 02:28 Order name: EKG; Complete Time: 02:29 rt 06/20 02:28 Order name: EKG - Nurse/Tech; Complete Time: 02:57 rt EC:58 Rate is 78 beats/min. Rhythm is regular, Normal Sinus Rhythm with Right bundle branch rt block. QRS [place] is Normal. [place] interval is normal. QRS interval is normal. QT interval is normal. No Q waves. Interpreted by me. Administered Medications: No medications were administered Disposition Summary: 06/20/23 03:59 Discharge Ordered Notes: Location: Home rt Problem: new rt Symptoms: have improved rt Condition: Stable rt Diagnosis - Dyspnea rt Followup: rt - With: Private Physician - When: 2 - 3 days - Reason: Discharge Instructions: - Discharge Summary Sheet rt - Shortness of Breath, Adult rt Forms: - Medication Reconciliation Form rt - Thank You Letter rt - Antibiotic Education rt - Prescription Opioid Use rt - Patient Portal Instructions rt - Leadership Thank You Letter rt Signatures: Dispatcher [employer] Veronica Chandra RN RN vc1 Canelo Ritchie MD MD rt
--- NOTE | 2023-06-20 04:00 | ER ---
Nurse's Notes [facility] Name: Yeyo Pelayo Age: 82 yrs Sex: Male : 1940 Arrival Date: 06/20/2023 Time: 02:09 Bed 8 Private MD: Diagnosis: Dyspnea Presentation: 06/20 02:27 Chief complaint: Patient states: I was here a few days ago for a UTI and when the nurse vc1 was putting in the IV he was coughing. No I feel short of breath and want to make sure I didn't get covid. Coronavirus screen: Vaccine status: Patient reports receiving the 2nd dose of the covid vaccine. Pfizer shortness of breath, Client presents with at least one sign or symptom that may indicate coronavirus-19. Ebola Screen: Patient negative for fever greater than or equal to 101.5 degrees Fahrenheit, and additional compatible Ebola Virus Disease symptoms Patient denies exposure to infectious person. Patient denies travel to an Ebola-affected area in the 21 days before illness onset. No symptoms or risks identified at this time. Initial Sepsis Screen: Does the patient meet any 2 criteria? No. Patient's initial sepsis screen is negative. Does the patient have a suspected source of infection? No. Patient's initial sepsis screen is negative. Risk Assessment: Do you want to hurt yourself or someone else? Patient reports no desire to harm self or others. Onset of symptoms is unknown. 02:27 Method Of Arrival: Ambulatory vc1 02:27 Acuity: KEN 4 vc1 Triage Assessment: 02:30 General: Appears in no apparent distress. uncomfortable, Behavior is cooperative, vc1 anxious. Pain: Denies pain. EENT: No deficits noted. No signs and/or symptoms were reported regarding the EENT system. Neuro: Level of Consciousness is awake, alert, obeys commands, Oriented to person, place, time, situation, Appropriate for age. Cardiovascular: No deficits noted. Respiratory: Reports shortness of breath Onset: The symptoms/episode began/occurred suddenly, the patient has mild shortness of breath. Respiratory: Airway is patent Respiratory effort is even, unlabored, Respiratory pattern is regular, symmetrical. GI: No deficits noted. No signs and/or symptoms were reported involving the gastrointestinal system. : No deficits noted. No signs and/or symptoms were reported regarding the genitourinary system. Derm: No deficits noted. No signs and/or symptoms reported regarding the dermatologic system. Musculoskeletal: No deficits noted. No signs and/or symptoms reported regarding the musculoskeletal system. Historical: - Allergies: 02:30 No Known Allergies; vc1 - PMHx: 02:30 Diabetes - NIDDM; Hypertension; Kidney stones; vc1 - PSHx: 02:30 Lithotripsy; vc1 - Immunization history:: Client reports receiving the 2nd dose of the Covid vaccine. - Social history:: Smoking status: Patient denies any tobacco usage or history of. - Family history:: not pertinent. Screenin:31 Abuse screen: Denies threats or abuse. Nutritional screening: No deficits noted. vc1 Tuberculosis screening: No symptoms or risk factors identified. 03:22 [facility] ED Fall Risk Assessment (Adult) History of falling in the last 3 months, la4 including since admission No falls in past 3 months (0 pts) Confusion or Disorientation No (0 pts) Intoxicated or Sedated No (0 pts) Impaired Gait No (0 pts) Mobility Assist Device Used No (0 pt) Altered Elimination No (0 pt) Score/Fall Risk Level 3 or more points = High Risk. 03:23 [facility] ED Fall Risk Assessment (Adult) History of falling in the last 3 months, rv including since admission No falls in past 3 months (0 pts) Score/Fall Risk Level 0 - 2 = Low Risk Oriented to surroundings, Maintained a safe environment, Educated pt \T\ family on fall prevention, incl call for assistance when getting out of bed, Assessed \T\ reinforced patient's understanding of fall precautions, Provided non-skid footwear, Hourly rounding (assess needs \T\ fall precautionary measures) done, Used ambulatory aids as needed (educated on \T\ assisted with), Used gait belt as appropriate. Assessment: 03:05 Reassessment: Patient is alert, oriented x 3, equal unlabored respirations, skin la4 warm/dry/pink. pt noted to appear calm but anxious. Very particular in his care and how he does things. No distress noted. Heart rate regular and BP stable at this time. Cardiovascular: No deficits noted. Reports shortness of breath, Heart tones S1 S2 Capillary refill < 3 seconds is brisk Pulses are all present. Edema is absent. Rhythm is sinus rhythm. Respiratory: No deficits noted. Reports shortness of breath Airway is patent Breath sounds are clear bilaterally. Vital Signs: 02:27 BP 157 / 128; Pulse 95; Resp 20; Temp 97.8; Pulse Ox 100% ; Weight 71.21 kg; Height 6 vc1 ft. 1 in. ; Pain 0/10; 04:06 BP 140 / 71; Pulse 89; Resp 18; Temp 98; Pulse Ox 99% ; rv 02:27 Body Mass Index 20.71 (71.21 kg, 185.42 cm) vc1 02:27 Pain Scale: Adult vc1 Vitals: 03:22 Cardiac Rhythm Assessment Regular Sinus rhythm Other bundle banch block. la4 Ward Coma Score: 03:22 Eye Response: spontaneous(4). Motor Response: obeys commands(6). Verbal Response: la4 oriented(5). Total: 15. ED Course: 02:12 Patient arrived in ED. jj6 02:16 Canelo Ritchie MD is Attending Physician. rt 02:29 Triage completed. vc1 02:30 Arm band placed on right wrist. EKG completed in triage. Results shown to MD. EKG vc1 completed in triage. Results shown to MD. 02:31 Patient has correct armband on for positive identification. Bed in low position. Call vc1 light in reach. Pulse ox on. NIBP on. 02:43 Chest Single View XRAY In Process Unspecified. EDMS 02:57 SARS RAPID Sent. jb4 02:57 Influenza Screen (a \T\ B) Sent. jb4 03:22 No apparent distress. noted to slightly anxious over care. Awaiting lab results, la4 Awaiting radiology results. 03:22 Provided Education on: plan of care. Client placed on continuous cardiac and pulse la4 oximetry monitoring. NIBP monitoring applied. 03:22 Inserted saline lock: 20 gauge in left forearm, using aseptic technique. la4 03:23 No provider procedures requiring assistance completed. rv 04:06 Kirill Escobar, CACHORRO is Primary Nurse. rv 04:06 IV discontinued, intact, bleeding controlled, No redness/swelling at site. Pressure rv dressing applied. Administered Medications: No medications were administered Medication: 03:22 VIS not applicable for this client. la4 Outcome: 03:59 Discharge ordered by MD. rt 04:06 Discharged to home ambulatory, rv 04:06 Condition: good 04:06 Discharge instructions given to patient, Instructed on discharge instructions, follow up and referral plans. Demonstrated understanding of instructions, follow-up care, 04:06 Patient left the ED. rv Signatures: Dispatcher [employer] EDMS Yeyo Jones, RN RN jb4 Kirill Escobar RN RN rv Helen Bentonj6 Veronica Reyez RN RN vc1 Canelo Ritchie MD MD rt Andrews, La'Rea RN RN la4
[2023-06-20 04:21] VITALS: BP 140/71; TEMP 98; O2SAT 99
--- NOTE | 2023-06-20 13:57 | RAD REPORT ---
EXAM DESCRIPTION: RAD - Chest Single View - 06/20/2023 2:41 am CLINICAL HISTORY: DYSPNEA TECHNIQUE: Frontal view of the chest. COMPARISON: XR Chest dated 06/18/2023 FINDINGS: Lungs: Coarsened interstitial markings. No focal consolidation. Pleural space: Unremarkable. No pneumothorax. Heart: Unremarkable. No cardiomegaly. Mediastinum: Unremarkable. Bones/joints: Multilevel spondylosis. No acute fracture. Vasculature: Thoracic aortic atherosclerosis. IMPRESSION: No acute disease. Electronically signed by: Stephenie Collier MD 06/20/2023 2:51 AM CDT Due to temporary technical issues with the PACS/Fluency reporting system, reports are being signed by the in house radiologists without review as a courtesy to insure prompt reporting. The interpreting radiologist is fully responsible for the content of the report.
--- NOTE | 2023-06-27 14:42 | EKG ---
Test Date: 2023-06-20 Test Time: 02:54:48 Cut Off Saw Grader: GERI MEASUREMENT RESULTS: Intervals: Rate: 78 IA: 236 QRSD: 136 QT: 420 QTc: 478 Donner: P: 46 IA: 236 QRS: 52 T: 41 INTERPRETIVE STATEMENTS: Sinus rhythm with 1st degree AV block Right bundle branch block Abnormal ECG Compared to ECG 06/18/2023 02:49:01 First degree AV block now present Electronically Signed On 06-27-23 14:20:47 SAND SCREENER OPERATOR by Josh Osei
== END 2023-06-20 04:06 | disposition home or self-care (01) ==
LOC: ER 02:09
DX: R06.00 Dyspnea, unspecified (principal); I10 Essential (primary) hypertension; E11.9 Type 2 diabetes mellitus without complications; Z11.52 Encounter for screening for COVID-19
CPT/HCPCS: 36415; 71045; 80053; 83880; 84484; 85025; 87804; 87811; 93005; 99284

== ENCOUNTER 2023-07-05 17:43 | Inpatient (IN) | payer OTHER ==
--- OUTSIDE RECORDS SUMMARY | 2023-07-05 17:46 | XMS REPORT | Continuity of Care Document ---
:1940 Author Organization [facility] t Address [address] [place] [id number] Care Team Providers Name Role Phone Lalo [...] Facility Department ID 2023-01-08 Outpatient BRIANNA Munroe [id number] Common 13:53:03 Lalo [id number] [facility] Results This patient has no known results.
[2023-07-05 18:08] LABS: Absolute Lymphocytes (CBC) 1.5 K/uL (0.7-4.9); Hematocrit 39.4 % (39.6-49.0); Lymphocytes % 18.7 % (15.3-44.8); MCV 94.5 fL (80-100); MPV 6.8 fL (7.6-11.3); Platelets 214 thou/uL (152-406); RBC Red Blood Cell Count 4.17 M/uL (4.33-5.43)
[2023-07-05 18:15] LABS: Protime INR 1.06
[2023-07-05 18:30] LABS: Albumin 3.3 g/dL (3.4-5.0); Bilirubin Direct 0.1 mg/dL (0-0.2); Bilirubin Indirect, Calculated 0.2 mg/dL (0.2-0.8); Bilirubin Total 0.3 mg/dL (0.2-1.0); Magnesium 2.6 mg/dL (1.6-2.4); Potassium 3.7 mEq/L (3.5-5.1); Protein, Total 7.1 g/dL (6.4-8.2); Troponin High Sensitivity 7.3 pg/mL (<58.9)
[2023-07-05] MEDS ORDERED: LORazepam 2 MG/ML VIAL ONE (18:52)
[2023-07-05] MEDS ORDERED: ONDANSETRON 4 MG (ODT) TAB ONE (19:06)
--- NOTE | 2023-07-05 19:18 | RAD REPORT ---
EXAM DESCRIPTION: RAD - Chest Single View - 07/05/2023 7:12 pm CLINICAL HISTORY: CHEST PAIN Chest pain. COMPARISON: <Comparisons> FINDINGS: Portable technique limits examination quality. The lungs are emphysematous but grossly clear. The heart is normal in size. No displaced fractures. IMPRESSION: No acute intrathoracic process suspected. Mild COPD.
--- NOTE | 2023-07-05 19:18 | RAD REPORT ---
EXAM DESCRIPTION: CT - Angio Aorta For Dissection - 07/05/2023 7:07 pm CLINICAL HISTORY: Chest pain radiating to the back. DISSECTION COMPARISON: <Comparisons> TECHNIQUE: CT angiography of the aorta was performed with MIPs. All CT scans are performed using dose optimization technique as appropriate and may include automated exposure control or mA/KV adjustment according to patient size. FINDINGS: A left aortic arch is present with normal branching pattern of the great vessels.No acute aortic finding is seen such as aneurysm, penetrating ulcer or dissection. The celiac axis, SMA, CAROLYNE and renal arteries are patent. Moderate atherosclerotic plaquing is seen at the origin of the viscera l arteries. No evidence of pulmonary embolism. The lungs are clear. The gallbladder is distended and contains multiple stones. The liver demonstrates no focal mass or biliary dilatation.Mild fatty liver.The spleen, pancreas, adr enal glands and kidneys are within normal limits for arterial phase imaging.4 mm stone is present at the left UVJ along the bladder mucosa. Additional punctate 1-2 mm stone appears present in the bladde r adjacent to this region. No bowel obstruction, free fluid or abscess.There is significant stool present throughout the colon. Normal appendix.No pathologic enlarged lymphadenopathy identified.Prostate gland is mildly enlarged a nd projects into the bladder base. Moderate fat containing left inguinal hernia. No fracture or worrisome bone lesion seen. IMPRESSION: No acute aortic finding is demonstrated. Gallbladder is distended and contains multiple stones. 4 mm stone left UVJ without hydronephrosis. Additional punctate bladder stone. Mild fatty liver. Significant stool is retained throughout the colon.
--- NOTE | 2023-07-05 19:26 | EDPHYS ---
Physician Documentation [facility] Name: Yeyo Pelayo Age: 82 yrs Sex: Male : 1940 Arrival Date: 07/05/2023 Time: 17:43 Bed 7 Private MD: ED Physician Kyree Cox HPI: 07/05 17:59 This 82 yrs old Male presents to ER via EMS with complaints of Chest Pain. sb4 17:59 The patient or guardian reports chest pain that is located primarily in the substernal sb4 area. Onset: just prior to arrival. The pain does not radiate. Associated signs and symptoms: Pertinent positives: diaphoresis, lightheadedness, palpitations. The chest pain is described as a heaviness. Modifying factors: The symptoms are alleviated by NTG, X1. EMS care prior to arrival includes: aspirin, nitroglycerin. The patient has not experienced similar symptoms in the past. Historical: - Allergies: 17:44 No Known Allergies; aa5 - Home Meds: 21:36 glimepiride 4 mg Oral tablet 2 times per day [Active]; metoprolol tartrate 25 mg Oral la4 tablet every 12 hours [Active]; - PMHx: 17:44 Diabetes - NIDDM; Hypertension; Kidney stones; aa5 - PSHx: 17:44 Lithotripsy; aa5 - Immunization history:: Adult Immunizations unknown. - Social history:: Smoking status: Patient denies any tobacco usage or history of. ROS: 17:59 Constitutional: Negative for fever, chills, and weight loss, sb4 17:59 Cardiovascular: Positive for chest pain, 17:59 Respiratory: Positive for shortness of breath, 17:59 All other systems are negative, Exam: 17:59 Head/Face: Normocephalic, atraumatic. Eyes: Extra-ocular motions intact. Periorbital sb4 areas with no swelling, redness, or edema. ENT: Mucous membranes moist. Cardiovascular: Regular rate and rhythm with a normal S1 and S2. Respiratory: Lungs have equal breath sounds bilaterally, clear to auscultation and percussion. No rales, rhonchi or wheezes noted. No increased work of breathing, no retractions or nasal flaring. Abdomen/GI: Soft, non-tender, no distension. Skin: Warm, dry with normal turgor. Normal color with no rashes, no lesions, and no evidence of cellulitis. MS/ Extremity: Pulses equal, no cyanosis. Neurovascular intact. Full, normal range of motion. Neuro: Awake and alert, GCS 15, oriented to person, place, time, and situation. Motor strength 5/5 in all extremities. Sensory grossly intact. 17:59 Constitutional: The patient appears alert, awake, anxious, diaphoretic, in obvious distress, mildly distressed, Vital Signs: 17:44 BP 163 / 80; Pulse 72; Resp 18 S; Temp 98(TE); Pulse Ox 100% on R/A; aa5 19:58 BP 142 / 75; Pulse 73; Resp 18; Pulse Ox 100% on R/A; la4 Eun Coma Score: 19:58 Eye Response: spontaneous(4). Motor Response: obeys commands(6). Verbal Response: la4 oriented(5). Total: 15. MDM: 17:45 Patient medically screened. sb4 17:59 Differential diagnosis: acute myocardial infarction, pulmonary embolus, stable angina, sb4 unstable angina. ECG:. The patient was not given aspirin in the Emergency Department. Administered by EMS. 18:33 Scoring Tools HEART Score: History: ECG: Age: Risk Factors: > or = 3 Risk factors for sb4 atherosclerotic disease (2), Troponin: Total Score = 6. 19:24 Data reviewed: vital signs, nurses notes, lab test result(s), EKG, radiologic studies, sb4 and as a result, I will admit patient. Consideration of Admission/Observation Patient was admitted/placed on observation. Management of patient was discussed with the following: Hospitalist: DOUGLAS Bird. Care significantly affected by the following chronic conditions: Diabetes, Hypertension. Counseling: I had a detailed discussion with the patient and/or guardian regarding the historical points, exam findings, and any diagnostic results supporting the discharge/admit diagnosis, the presence of at least one elevated blood pressure reading (>120/80) during this emergency department visit, lab results, radiology results, the need for further work-up and treatment in the hospital. 07/05 17:50 Order name: Basic Metabolic Panel; Complete Time: 18:31 sb4 07/05 17:50 Order name: CBC with Diff; Complete Time: 18:13 sb4 07/05 17:50 Order name: LFT's; Complete Time: 18:31 sb4 07/05 17:50 Order name: Magnesium; Complete Time: 18:31 sb4 07/05 17:50 Order name: NT PRO-BNP; Complete Time: 18:31 sb4 07/05 17:50 Order name: PT-INR; Complete Time: 18:15 sb4 07/05 17:50 Order name: Troponin HS; Complete Time: 18:31 sb4 07/05 21:56 Order name: Troponin High Sensitivity; Complete Time: 22:03 EDMS 07/05 21:56 Order name: Lipid Profile; Complete Time: 22:03 EDMS 07/05 17:50 Order name: XRAY Chest (1 view); Complete Time: 19:19 sb4 07/05 18:32 Order name: CT Aorta for Dissection; Complete Time: 19:19 sb4 07/05 17:50 Order name: EKG; Complete Time: 17:50 sb4 07/05 17:50 Order name: Cardiac monitoring; Complete Time: 17:54 sb4 07/05 17:50 Order name: EKG - Nurse/Tech; Complete Time: 17:54 sb4 07/05 17:50 Order name: IV Saline Lock; Complete Time: 17:54 sb4 07/05 17:50 Order name: Labs collected and sent; Complete Time: 17:54 sb4 07/05 17:50 Order name: O2 Per Protocol; Complete Time: 17:54 sb4 07/05 17:50 Order name: O2 Sat Monitoring; Complete Time: 17:54 sb4 EC:51 Rate is 76 beats/min. Rhythm is regular, Sinus Rhythm with Right bundle branch block, sb4 1st degree heart block. CA interval is prolonged at 232 msec. QRS interval is normal at 130 msec. QT interval is normal at [address] changes noted. Clinical impression: Abnormal EKG without significant change and No evidence of ischemia. Interpreted by me. Reviewed by me. Administered Medications: 18:40 Drug: Ativan IVP 1 mg IVP once Route: IVP; Site: left antecubital; rs5 18:56 Drug: Ondansetron Oral Disintegrating Tablet Oral Disintegrating Tablet 4 mg PO once rs5 Route: PO; Disposition Summary: 07/05/23 19:25 Hospitalization Ordered Notes: Hospitalization Status: Observation sb4 Provider: Savanah Hoover sb4 Location: Telemetry/MedSurg (observation) sb4 Condition: Fair sb4 Problem: new sb4 Symptoms: are unchanged sb4 Bed/Room Type: Standard sb4 Room Assignment: 431(07/05/23 20:44) cg Diagnosis - Chest pain, unspecified sb4 Forms: - Medication Reconciliation Form sb4 - SBAR form sb4 - Leadership Thank You Letter sb4 Signatures: Dispatcher [employer] EDValentina Flores, FILTER TIP INSPECTOR-C FILTER TIP INSPECTOR-Ankitw Genna Block, RN RN aa5 Lisa Faria RN RN cg Brown, Sophia PAHughC PA-C sb4 Cristian Valladares RN RN rs5 Tushar Lake RN RN la4 Corrections: (The following items were deleted from the chart) 20:44 19:25 sb4 cg
--- NOTE | 2023-07-05 19:26 | ER ---
Nurse's Notes [facility] Name: Yeyo Pelayo Age: 82 yrs Sex: Male : 1940 Arrival Date: 07/05/2023 Time: 17:43 Bed 7 Private MD: Diagnosis: Chest pain, unspecified Presentation: 07/05 17:44 Onset of symptoms was July 05, 2023 at 16:44. 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 EMS reports pt was diaphoretic upon scene arrival. Coronavirus screen: At this time, the client does not indicate any symptoms associated with coronavirus-19. Ebola Screen: Patient denies travel to an Ebola-affected area in the 21 days before illness onset. Initial Sepsis Screen: Does the patient meet any 2 criteria? No. Patient's initial sepsis screen is negative. Does the patient have a suspected source of infection? No. Patient's initial sepsis screen is negative. Risk Assessment: Do you want to hurt yourself or someone else? Patient reports no desire to harm self or others. 17:44 Acuity: KEN 2 aa5 17:44 Method Of Arrival: EMS: [facility] aa5 Historical: - Allergies: 17:44 No Known Allergies; aa5 - Home Meds: 21:36 glimepiride 4 mg Oral tablet 2 times per day [Active]; metoprolol tartrate 25 mg Oral la4 tablet every 12 hours [Active]; - PMHx: 17:44 Diabetes - NIDDM; Hypertension; Kidney stones; aa5 - PSHx: 17:44 Lithotripsy; aa5 - Immunization history:: Adult Immunizations unknown. - Social history:: Smoking status: Patient denies any tobacco usage or history of. Screenin:58 [facility] ED Fall Risk Assessment (Adult) History of falling in the last 3 months, la4 including since admission No falls in past 3 months (0 pts) Confusion or Disorientation No (0 pts) Intoxicated or Sedated No (0 pts) Impaired Gait No (0 pts) Mobility Assist Device Used No (0 pt) Altered Elimination No (0 pt) Score/Fall Risk Level 0 - 2 = Low Risk. Abuse screen: Denies threats or abuse. Denies injuries from another. Nutritional screening: No deficits noted. Tuberculosis screening: No symptoms or risk factors identified. Assessment: 17:44 General: Appears in no apparent distress. uncomfortable, Behavior is calm, cooperative. rs5 17:44 Pain: Complains of pain in chest Pain does not radiate. Pain currently is 3 out of 10 rs5 on a pain scale. Quality of pain is described as aching, Pain began 1 hour ago. Is continuous. Neuro: Level of Consciousness is awake, alert, obeys commands, Oriented to person, place, time, situation. Cardiovascular: Heart tones S1 S2 present Rhythm is regular. Respiratory: Airway is patent Respiratory effort is even, unlabored, Respiratory pattern is regular, symmetrical, Breath sounds are clear bilaterally. GI: Abdomen is flat, non-distended, Bowel sounds present X 4 quads. Abd is soft and non tender X 4 quads. : No signs and/or symptoms were reported regarding the genitourinary system. EENT: No signs and/or symptoms were reported regarding the EENT system. Derm: Skin is intact, Skin is pink, warm \\T\\ dry. Musculoskeletal: Circulation, motion, and sensation intact. Capillary refill < 3 seconds, is brisk, Range of motion: intact in all extremities. 18:30 Reassessment: Pt states "I feel really anxious right now" provider notified . rs5 19:02 Reassessment: Report given to [facility] shift lead nurse. rs5 20:24 Also complains of no other symptoms. Reassessment: Patient is alert, oriented x 3, la4 equal unlabored respirations, skin warm/dry/pink. General: Appears in no apparent distress. Behavior is calm, cooperative, appropriate for age. Pain: Denies pain. Neuro: No deficits noted. Wang Agitation-Sedation Scale (RASS): 0 - Alert and Calm Level of Consciousness is awake, alert, obeys commands, Oriented to person, place, time, situation, Appropriate for age Inward Toll Operator are equal bilaterally Moves all extremities. Cardiovascular: No deficits noted. Reports None Heart tones S1 S2 Rhythm is sinus bradycardia. Respiratory: No deficits noted. Airway is patent Trachea midline Respiratory effort is even, unlabored, Respiratory pattern is regular, symmetrical. GI: No deficits noted. No signs and/or symptoms were reported involving the gastrointestinal system. : No deficits noted. No signs and/or symptoms were reported regarding the genitourinary system. Urine is clear. Musculoskeletal: No deficits noted. No signs and/or symptoms reported regarding the musculoskeletal system. Circulation, motion, and sensation intact. Capillary refill < 3 seconds, is brisk, Range of motion: intact in all extremities. 20:52 Reassessment: Report attempted. Pt unassigned to nurse on unit at this time. They nw1 stated that they will call and receive once assignment is made. 21:35 Pain: la4 Vital Signs: 17:44 BP 163 / 80; Pulse 72; Resp 18 S; Temp 98(TE); Pulse Ox 100% on R/A; aa5 19:58 BP 142 / 75; Pulse 73; Resp 18; Pulse Ox 100% on R/A; la4 [place] Coma Score: 19:58 Eye Response: spontaneous(4). Motor Response: obeys commands(6). Verbal Response: la4 oriented(5). Total: 15. ED Course: 17:44 Patient arrived in ED. aa5 17:44 Arm band placed on. aa5 17:45 Nicolasa Thomson PA-C is PHCP. sb4 17:45 Kyree Cox MD is Attending Physician. sb4 17:53 Triage completed. aa5 18:36 Cristian Valladares, RN is Primary Nurse. rs5 19:08 CT Aorta for Dissection In Process Unspecified. EDMS 19:13 XRAY Chest (1 view) In Process Unspecified. EDMS 19:25 Savanah Hoover MD is Hospitalizing Provider. sb4 19:58 No apparent distress. Awaiting bed assignment. la4 19:58 Patient has correct armband on for positive identification. Placed in gown. Bed in low la4 position. Call light in reach. Side rails up X2. Provided Education on: plan of care. Client placed on continuous cardiac and pulse oximetry monitoring. NIBP monitoring applied. 19:58 No provider procedures requiring assistance completed. IV is patent, is intact, left AC la4 IV. Patient maintains SpO2 saturation greater than 95% on room air. 21:35 Patient admitted, IV remains in place. intact. la4 Administered Medications: 18:40 Drug: Ativan IVP 1 mg IVP once Route: IVP; Site: left antecubital; rs5 18:56 Drug: Ondansetron Oral Disintegrating Tablet Oral Disintegrating Tablet 4 mg PO once rs5 Route: PO; Medication: 19:58 VIS not applicable for this client. yvette Outcome: 19:25 Decision to Hospitalize by Provider. sb4 21:35 Admitted to Tele via stretcher, with chart, Report called to Ko crawford 21:35 Condition: stable 21:35 Instructed on the need for admit, 22:34 Patient left the ED. yvette Signatures: Dispatcher [employer] EDME Genna Block RN RN hawa5 Nicolasa Thomson, PA-C PA-C sb4 Cristian Valladares RN RN rs5 Tushar Lake RN RN la4 Claudia Lincoln RN RN nw1 Corrections: (The following items were deleted from the chart) 07/06 09:26 07/05 18:05 Reassessment: Pt states "I feel really anxious right now" provider notified rs5 . rs5
[2023-07-05] MEDS ORDERED: NITROGLYCERIN 0.4 MG/TAB SL PRN (20:00)
[2023-07-05] MEDS ORDERED: ACETAMINOPHEN 500 MG TAB PO PRN (20:00)
[2023-07-05] MEDS ORDERED: ASPIRIN 325 MG TAB PO ONE (20:00)
--- NOTE | 2023-07-05 20:28 | P.HP ---
Certification for Inpatient Patient admitted to: Observation With expected LOS: <2 Midnights <Marge Noriega - Last Filed: 07/05/23 20:36> Patient History Date of Service: 07/05/23 Reason for admission: Chest Pain History of Present Illness: Mr. Pelayo is a 82-year-old male patient with a past medical history of diabetesNIDDM, hypertension, kidney stones present to the ER via EMS with complaints of chest pain. Patient reports of chest pain that is located primarily in the substernal area, started just prior to arrival to the ED. The pain does not radiate, associated with diaphoresis, lightheadedness and palpitations. The chest pain is described as heaviness. Symptoms are alleviated by nitroglycerin x1 by the EMS prior to arrival to the hospital. Patient also was given aspirin by the EMS. Patient has not experienced similar symptoms in the past. Patient denies any chest pain at this time, denies shortness of breath or palpitation. Patient denies fever chills, abdominal pain nausea or vomiting. ED course Vital signs blood pressure 163/80, pulse 72, respiration 18, temperature 98, pulse ox 100% on room air. EKG sinus rhythm with first-degree heart block, with a right bundle branch block, rhythm is regular, NE is prolonged, QRS interval is normal QT interval is 461, no ST changes noted. Initial laboratory findings significant for elevated BUN 35, creatinine 1.53, low GFR 45. CBC is normal. X-ray shows no acute intrathoracic process but suspected mild COPD. CT angio aorta for dissection is negative. Admitting the patient the diagnosis of chest pain unspecified. Home medications list reviewed: Yes - Past Medical/Surgical History Diabetic: Yes -: Hypertension -: Type 2 diabetes -: Nephrolithiasis -: CKD 3 -: urethral stent placement -: cystoscopy -: hernia repair Psychosocial/ Personal History: Retired, lives at home with his - Family History Mother Notes: alzheimers Father -: Cancer Notes: colon - Social History Smoking Status: Former smoker Alcohol use: No CD- Drugs: No Caffeine use: No <Marge Noriega - Last Filed: 07/05/23 20:36> Date of Service: 07/06/23 <Savanah Hoover - Last Filed: 07/06/23 01:28> Allergies No Known Drug Allergies Allergy (Verified 08/18/16 02:20) Unknown Home Medications: Aspirin [Aspirin EC 81 MG] 81 mg PO DAILY #30 tablet.dr 07/22/21 Nitroglycerin [Nitrostat*] 0.4 mg SL UD PRN #30 tab 07/22/21 Atorvastatin Calcium [Lipitor] 40 mg PO BEDTIME 30 Days #30 tab 08/07/21 Clopidogrel Bisulfate [Plavix*] 75 mg PO DAILY 30 Days #30 tablet 08/07/21 Glimepiride 4 mg PO BID 30 Days #60 tab 08/07/21 Metoprolol Tartrate [Lopressor*] 25 mg PO BID 6AM 6PM 30 Days #60 tab 08/07/21 ALPRAZolam [Xanax*] 0.25 mg PO TID PRN #30 tab 08/15/21 Benzonatate [Tessalon Perle*] 100 mg PO TID PRN #30 cap 08/15/21 Escitalopram [Lexapro*] 10 mg PO DAILY #30 tab 08/15/21 Melatonin 5 mg PO BEDTIME PRN PRN #30 tablet 08/15/21 Temazepam [Restoril*] 15 mg PO BEDTIME PRN PRN #30 cap 08/15/21 Zinc Sulfate [Zinc Sulfate*] 220 mg PO DAILY #30 cap 08/15/21 Review of Systems 10-point ROS is otherwise unremarkable <Marge Noriega - Last Filed: 07/05/23 20:36> Physical Examination - Physical Exam General: Alert, Oriented x3 HEENT: Atraumatic, Normocephalic, PERRLA Neck: 2+ carotid pulse no bruit, JVD not distended Respiratory: Clear to auscultation bilaterally, Normal air movement Cardiovascular: No edema, Normal pulses, Normal S1 S2 Capillary refill: <2 Seconds Gastrointestinal: Normal bowel sounds, Soft and benign Musculoskeletal: No clubbing, No swelling, No tenderness Integumentary: No rashes, No breakdown Neurological: Normal gait, Normal speech, Normal tone, Normal affect - Studies Laboratory Data (last 24 hrs) 07/05/23 07/05/23 07/05/23 17:50 17:50 17:50 WBC 8.00 Hgb 13.5 L Hct 39.4 L Plt Count 214 PT 11.7 INR 1.06 Sodium 138 Potassium 3.7 BUN 35 H Creatinine 1.53 H Glucose 86 Magnesium 2.6 H Total Bilirubin 0.3 AST 21 ALT 37 Alkaline Phosphatase 84 <Marge Noriega - Last Filed: 07/05/23 20:36> - Studies Laboratory Data (last 24 hrs) 07/05/23 07/05/23 07/05/23 17:50 17:50 17:50 WBC 8.00 Hgb 13.5 L Hct 39.4 L Plt Count 214 PT 11.7 INR 1.06 Sodium 138 Potassium 3.7 BUN 35 H Creatinine 1.53 H Glucose 86 Magnesium 2.6 H Total Bilirubin 0.3 AST 21 ALT 37 Alkaline Phosphatase 84 <Savanah Hoover - Last Filed: 07/06/23 01:28> Assessment and Plan - Problems (Diagnosis) (1) Chest pain, rule out acute myocardial infarction Current Visit: No Status: Acute (2) CKD (chronic kidney disease) Current Visit: No Status: Chronic Qualifiers: Chronic kidney disease stage: stage 3 (moderate) Chronic kidney disease stage 3 subtype: stage 3a (GFR 45-59) Qualified Code(s): N18.31 - Chronic kidn ey disease, stage 3a (3) DM2 (diabetes mellitus, type 2) Onset Date: 07/17/14 Current Visit: No Status: Chronic Qualifiers: Diabetes mellitus intermediate insulin use: without terminal superintendent use Diabetes mellitus complication status: without complication Qualified Code(s): E11.9 - Type 2 diabetes mellitus without complications (4) HTN (hypertension) Onset Date: 07/17/14 Current Visit: No Status: Chronic Qualifiers: Hypertension type: renovascular hypertension Qualified Code(s): I15.0 - Renovascular hypertension - Plan Chest Pain: Acute chest pain started today evening, midsternal, like pressure, severity 5 out of 10, no similar episodes before. Patient's pain relieved with the nitro in the ER Vital signs are stable - Evaluation thus far: - EKG: Sinus rhythm with first-degree heart block, right bundle branch block, right axis deviation, QTc 410/461., No obvious ST segment changes, trend -Initial troponin I 7.3-serial troponin, BNP 229 - Ordered transthoracic echocardiogram - Ordered chest x-ray - Ordered d-dimer - Management plan: - Consult Cardiology - recommendations appreciated - S/P aspirin 324 mg PO x 1 in ED - Start daily baby aspirin - Symptom control with PRN acetaminophen, nitroglycerin, morphine -Lipid panel in the a.m. - If CAD is confirmed, plan to start beta-viky, WILMER-inhibitor/ARB, statin with 24 hours CKD 3a: Renal profile GFR 45, BUN 35, creatinine 1.53 We will renal dose the medications Avoid nephrotoxins Adequate fluid intake Manage chronic illnesses including hypertension and diabetes Diabetes mellitus type 2: Chronic, controlled on glimepiride 4 mg p.o. twice daily Patient reports his blood sugar has been controlled Denies hypoglycemic episodes Start on blood sugar check before meals and at bedtime with low-dose sliding scale with regular insulin Hypoglycemic precautions, A1c in the morning Hypertension: Chronic controlled on metoprolol 25 mg p.o. twice daily at home Patient reports it has been controlled Monitor vital signs, check electrolytes and replace as needed Resume home medications Check lipid panel in the morning Heart healthy diet CODE STATUS Full code DVT prophylaxis Heparin Diet Cardiac Discharge Plan: Home Plan to discharge in: 24 Hours - Advance Directives Does patient have a Living Will: No Does patient have a Durable POA for Healthcare: No - Code Status/Comfort Care Code Status Assessed: Yes (full code) Code Status: Full Code Physician Review: Patient Assessed, Agree with Above Assessment and Plan Critical Care: No Time Spent Managing Pts Care (In Minutes): 55 (minutes) <Marge Noriega - Last Filed: 07/05/23 20:36> Date of Service: 07/05/23 Chart has been reviewed. Patient admitted for chest pain. Plan to rule out for acute coronary syndrome. Troponins have been negative and EKG with no acute abnormalities. Patient with some chronic findings. Echocardiogram pending. Cardiology consultation pending. Patient also with cholelithiasis with gallbladder distention. We will get an abdominal ultrasound to further evaluate. Patient also incidentally found to have nephrolithiasis. No obstruction. Unlikely to be etiology of pain. This can be further worked up as an outpatient. At this time, patient will be admitted to the hospital for further evaluation. <Savanah Hoover - Last Filed: 07/06/23 01:28>
[2023-07-05 21:56] LABS: Troponin High Sensitivity 17.9 pg/mL (<58.9)
[2023-07-05] MEDS: INSULIN REGULAR (HUMAN) 100 UNIT/ML SQ SCH (23:25)
[2023-07-05] MEDS: MELATONIN 5 MG TABLET PO PRN (23:47)
[2023-07-06] MEDS: HEPARIN 5000 UNIT/ML 1 ML VIAL SQ SCH ×3 (00:46→16:59)
[2023-07-06 03:17] VITALS: BMI 20.7
[2023-07-06 04:18] LABS: Absolute Lymphocytes (CBC) 1.6 K/uL (0.7-4.9); Hematocrit 36.6 % (39.6-49.0); Lymphocytes % 21.4 % (15.3-44.8); MCV 94.4 fL (80-100); MPV 6.7 fL (7.6-11.3); Platelets 190 thou/uL (152-406); RBC Red Blood Cell Count 3.88 M/uL (4.33-5.43)
[2023-07-06 04:38] LABS: Protime INR 1.05
[2023-07-06 04:49] LABS: Potassium 4.2 mEq/L (3.5-5.1)
[2023-07-06 05:04] LABS: Thyroid Stimulating Hormone 4.21 uIU/mL (0.358-3.740)
[2023-07-06 05:07] LABS: Phosphorus 3.9 mg/dL (2.5-4.9)
[2023-07-06] MEDS: INSULIN REGULAR (HUMAN) 100 UNIT/ML SQ SCH ×4 (07:30→21:34)
--- NOTE | 2023-07-06 07:45 | RAD REPORT ---
EXAM DESCRIPTION: US - Abdomen Exam Limited - 07/06/2023 5:22 am CLINICAL HISTORY: Abdominal pain. COMPARISON: July 05, 2023 CT FINDINGS: Multiple gallstones. Gallbladder wall not thickened The biliary tree is normal caliber. IMPRESSION: Cholelithiasis without evidence cholecystitis
--- NOTE | 2023-07-06 09:45 | P.PN ---
Subjective Date of Service: 07/06/23 Chief Complaint: Chest Pain Subjective: No new changes Physical Examination - Vital Signs Temperature: 97.4 F Blood Pressure: 137/64 Pulse: 52 Respirations: 16 Pulse Ox (%): 99 - Physical Exam General: Alert, Oriented x3 HEENT: Atraumatic, Normocephalic Neck: Supple Cardiovascular: Normal pulses, Regular rate/rhythm Gastrointestinal: Soft and benign Musculoskeletal: No swelling Neurological: Normal speech, Normal strength at 5/5 x4 extr - Studies Laboratory Data (last 24 hrs) 07/05/23 07/05/23 07/05/23 17:50 17:50 17:50 WBC 8.00 Hgb 13.5 L Hct 39.4 L Plt Count 214 PT 11.7 INR 1.06 Sodium 138 Potassium 3.7 BUN 35 H Creatinine 1.53 H Glucose 86 Magnesium 2.6 H Total Bilirubin 0.3 AST 21 ALT 37 Alkaline Phosphatase 84 Assessment And Plan - Plan Assessment and Plan - Problems (Diagnosis) (1) Chest pain, rule out acute myocardial infarction Current Visit: No Status: Acute Presently chest pain-free at this point. Work-up with echocardiogram pending. Cardiology pending. Abdominal ultrasound done, cholecystitis not found but cholelithiasis seen. We will follow-up on outpatient basis. (2) CKD (chronic kidney disease) Current Visit: No Status: Chronic Qualifiers: Chronic kidney disease stage: stage 3 (moderate) Chronic kidney disease stage 3 subtype: stage 3a (GFR 45-59) Qualified Code(s): N18.31 - Chronic kidney disease, stage 3a . Stable kidney function. (3) DM2 (diabetes mellitus, type 2) Onset Date: 07/17/14 Current Visit: No Status: Chronic Qualifiers: Diabetes mellitus [facility] insulin use: without guardian ad litem use Diabetes mellitus complication status: without complication Qualified Code(s): E11.9 - Type 2 diabetes mellitus without complications (4) HTN (hypertension) Onset Date: 07/17/14 Current Visit: No Status: Chronic Qualifiers: Hypertension type: renovascular hypertension Qualified Code(s): I15.0 - Renovascular hypertension Vital signs stable. Monitor vital signs per unit protocol Prophylaxis: Lovenox for DVT prophylaxis CODE STATUS: Full code. Disposition: Pending cardiology clearance for discharge. Physician Review: Patient Assessed, Agree with Above Assessment and Plan
[2023-07-06] MEDS: ASPIRIN EC 81 MG TAB PO SCH (11:14)
[2023-07-06] MEDS ORDERED: LORazepam 2 MG/ML VIAL IV STA (16:49)
[2023-07-06] MEDS ORDERED: MORPHINE 2 MG/ML SYR IV ONE (16:53)
[2023-07-06] MEDS: METOPROLOL TAR 25 MG TAB PO SCH (16:56)
[2023-07-06] MEDS: MELATONIN 5 MG TABLET PO PRN (21:34)
[2023-07-07] MEDS: HEPARIN 5000 UNIT/ML 1 ML VIAL SQ SCH ×3 (00:35→17:00)
[2023-07-07 03:41] LABS: Protime INR 1.02
[2023-07-07 03:42] LABS: Hematocrit 36.6 % (39.6-49.0); Lymphocytes % 15.5 % (15.3-44.8); MCV 94.7 fL (80-100); Platelets 192 thou/uL (152-406); RBC Red Blood Cell Count 3.86 M/uL (4.33-5.43)
[2023-07-07 03:58] LABS: Potassium 3.9 mEq/L (3.5-5.1)
[2023-07-07] MEDS: INSULIN REGULAR (HUMAN) 100 UNIT/ML SQ SCH ×4 (07:30→21:00)
[2023-07-07] MEDS ORDERED: REGADENOSON 0.4 MG/5 ML SYR IV ONE (08:00)
--- NOTE | 2023-07-07 08:35 | RAD REPORT ---
EXAM DESCRIPTION: NM - Rest Stress Cardiac Imaging - 07/07/2023 8:20 am CLINICAL HISTORY: CP Chest pain. COMPARISON: No comparisons TECHNIQUE: The patient was administered approximately 10mCi of Tc 99m Sestamibi prior to resting SPE CT imaging of the heart. The patient was then administered approximately 30 mCi of Tc 99m Sestamibi f ollowing exercise or pharmacologic stress. Multiplanar SPECT images were reviewed. FINDINGS: There is a moderate sized area of moderate stress-induced ischemia involving the LV apex a nd anterior wall. No fixed defect is seen to suggest hibernating myocardium or scarred myocardium. The end diastolic volume is 103 ml, the end systolic volume is 36 ml, and the ejection fraction is 65 %. IMPRESSION: Moderate sized area of moderate stress-induced ischemia LV apex extending anteriorly.
[2023-07-07] MEDS: ASPIRIN EC 81 MG TAB PO SCH (09:15)
[2023-07-07] MEDS: METOPROLOL TAR 25 MG TAB PO SCH ×2 (09:15→17:09)
--- NOTE | 2023-07-07 11:29 | ECHO ---
HEIGHT: 6 ft 1 in WEIGHT: 157 lb 0 oz DATE OF STUDY: 07/06/[address]: Marge Noriega NP 2-DIMENSIONAL: YES M.MODE: YES DOPPLER: YES COLOR FLOW: YES TDS: PORTABLE: YES DEFINITY: BUBBLE STUDY: DIAGNOSIS: CHEST PAIN, HYPERTENSION CARDIAC HISTORY: CATHERIZATION: SURGERY: PROSTHETIC VALVE: PACEMAKER: MEASUREMENTS (cm) DIASTOLIC (NORMALS) SYSTOLIC (NORMALS) IVSd 1.2 (0.6-1.2) LA Diam 2.8 (1.9-4.0) LVEF 55% LVIDd 4.6 (3.5-5.7) LVIDs 3.3 (2.0-3.5) %FS 20% LVPWd 1.2 (0.6-1.2) Ao Diam 2.8 (2.0-3.7) 2 DIMENSIONAL ASSESSMENT: RIGHT ATRIUM: NORMAL LEFT ATRIUM: NORMAL RIGHT VENTRICLE: NORMAL LEFT VENTRICLE: NORMAL TRICUSPID VALVE: MILD TRICUSPID REGURGITATION MITRAL VALVE: MILD MITRAL REGURGITATION PULMONIC VALVE: NORMAL AORTIC VALVE: MILD AORTIC INSUFFICIENCY PERICARDIAL EFFUSION: NONE AORTIC ROOT: NORMAL LEFT VENTRICULAR WALL MOTION: NORMAL DOPPLER/COLOR FLOW: SEE BELOW COMMENTS: 1. NORMAL LEFT VENTRICULAR EJECTION FRACTION 55-60% WITH NORMAL WALL MOTION 2. MILD MITRAL REGURGITATION, TRICUSPID REGURGITATION, AORTIC INSUFFICIENCY 3. NORMAL WALL MOTION TECHNOLOGIST: MIGDALIA JOHN
--- NOTE | 2023-07-07 12:17 | TREADPHA ---
DX: CHEST PAIN Date of Study: 07/07/2023 Ht: 6' 1 " Wt: 157 lb 0 oz Consulting Physician: QUE MEDICATIONS: TYLENOL, ASPIRIN, HEPARIN, NOVOLIN-R, MELATONIN, LOPRESSOR, MORPHINE, NITROSTAT HISTORY: DIABETES MELLITUS, HYPERTENSION, NON SMOKER, NON DRINKER, NO DRUG USE PHYSICIAL EXAMINATION: RESTING B.P.: 142/68 RESTING H.R.: 54 RESTING EKG: NORMAL SINUS RHYTHM WITH RIGHT BUNDLE BRANCH BLOCK PROTOCOL: PHARMACOLOGIC EXERCISE TIME: 3:30 B.P. AT PEAK STRESS: 140/53 IMPRESSION: LEXISCAN INJECTED. CARDIOLITE INJECTED - SEE NUCLEAR MEDICINE REPORT. NO CHEST PAIN, NO VENTRICULAR TACHYCARDIA, NO SUPRAVENTRICULAR TACHYCARDIA. NO ELECTROCARDIOGRAM CHANGES WITH LEXISCAN.
--- NOTE | 2023-07-07 12:35 | P.DS ---
Admission Date: 07/05/23 Discharge Date: 07/07/23 Disposition: ROUTINE DISCHARGE Discharge Condition: GOOD Reason for Admission: Chest Pain Brief History of Present Illness: Mr. Pelayo is a 82-year-old male patient with a past medical history of diabetesNIDDM, hypertension, kidney stones present to the ER via EMS with complaints of chest pain. Patient reports of chest pain that is located primarily in the substernal area, started just prior to arrival to the ED. The pain does not radiate, associated with diaphoresis, lightheadedness and palpitations. The chest pain is described as heaviness. Symptoms are alleviated by nitroglycerin x1 by the EMS prior to arrival to the hospital. Patient also was given aspirin by the EMS. Patient has not experienced similar symptoms in the past. Patient denies any chest pain at this time, denies shortness of breath or palpitation. Patient denies fever chills, abdominal pain nausea or vomiting. ED course Vital signs blood pressure 163/80, pulse 72, respiration 18, temperature 98, pulse ox 100% on room air. EKG sinus rhythm with first-degree heart block, with a right bundle branch block, rhythm is regular, [place] is prolonged, QRS interval is normal QT interval is 461, no ST changes noted. Initial laboratory findings significant for elevated BUN 35, creatinine 1.53, low GFR 45. CBC is normal. X-ray shows no acute intrathoracic process but suspected mild COPD. CT angio aorta for dissection is negative. Admitting the patient the diagnosis of chest pain unspecified. Hospital Course: He was admitted for possible chest pain work-up and was found to have cholelithiasis without cholecystitis. His troponin trend was negative. He did have episode of anxiety with significant distress and responded well to Ativan dose x1. After discussion with patient patient reported significant distress and insomnia and refuses he was significantly anxious. We demonstrated with patient to follow-up with his primary care doctor and a dose of SSRI was prescribed with nightly melatonin for sleep aid. He is discharged in stable condition to follow-up with outpatient primary care physician as scheduled. Vital Signs/Physical Exam: Temp Pulse Resp BP Pulse Ox 97.1 F 56 18 159/81 H 100 07/07/23 07:00 07/07/23 07:00 07/07/23 07:00 07/07/23 07:00 07/07/23 07:00 General: Alert, Oriented x3 HEENT: Atraumatic Neck: Supple Cardiovascular: Regular rate/rhythm, Normal S1 S2 Gastrointestinal: Soft and benign Musculoskeletal: No swelling Neurological: Normal speech, Normal strength at 5/5 x4 extr Laboratory Data at Discharge: WBC 6.60 thou/uL (4.3-10.9) 07/07/23 03:07 Hgb 12.6 g/dL (13.6-17.9) L 07/07/23 03:07 Hct 36.6 % (39.6-49.0) L 07/07/23 03:07 Plt Count 192 thou/uL (152-406) 07/07/23 03:07 PT 11.2 SECONDS (9.5-12.5) 07/07/23 03:07 INR 1.02 07/07/23 03:07 Sodium 140 mEq/L (136-145) 07/07/23 03:07 Potassium 3.9 mEq/L (3.5-5.1) 07/07/23 03:07 BUN 26 mg/dL (7-18) H 07/07/23 03:07 Creatinine 1.41 mg/dL (0.70-1.30) H 07/07/23 03:07 Glucose 126 mg/dL (74-106) H 07/07/23 03:07 Phosphorus Cancelled 07/06/23 05:00 Magnesium 2.6 mg/dL (1.6-2.4) H 07/05/23 17:50 Total Bilirubin 0.3 mg/dL (0.2-1.0) 07/05/23 17:50 AST 21 U/L (15-37) 07/05/23 17:50 ALT 37 U/L (16-61) 07/05/23 17:50 Alkaline Phosphatase 84 U/L (45-117) 07/05/23 17:50 Triglycerides 87 mg/dL (<150) 07/05/23 20:52 Cholesterol 116 mg/dL (<200) 07/05/23 20:52 HDL Cholesterol 36 mg/dL (40-60) L 07/05/23 20:52 Cholesterol/HDL Ratio 3.22 07/05/23 20:52 Home Medications: Glimepiride 4 mg PO BID 30 Days #60 tab 08/07/21 Metoprolol Tartrate [Lopressor*] 25 mg PO BID 6AM 6PM 30 Days #60 tab 08/07/21 Diet: ADA Followup: Lalo Munroe DO, DO [Primary Care Provider] -
[2023-07-07] MEDS: FLUOXETINE 10 MG CAP PO SCH (12:52)
--- NOTE | 2023-07-07 13:13 | P.PN ---
Subjective Date of Service: 07/08/23 Chief Complaint: Chest Pain Subjective: No new changes, Improving (Has had episodes of anxiety and is requesting medical therapy.) Physical Examination - Vital Signs Temperature: 97.1 F Blood Pressure: 159/81 Pulse: 56 Respirations: 18 Pulse Ox (%): 100 - Physical Exam General: Alert, Oriented x3 HEENT: Atraumatic, Normocephalic Neck: Supple Respiratory: Normal air movement Cardiovascular: Regular rate/rhythm, Normal S1 S2 Gastrointestinal: Soft and benign Musculoskeletal: No swelling Neurological: Normal speech, Normal strength at 5/5 x4 extr Assessment And Plan - Plan Assessment and Plan - Problems (Diagnosis) (1) Chest pain, rule out acute myocardial infarction Current Visit: No Status: Acute Presently chest pain-free at this point. Work-up with echocardiogram pending. Cardiology pending. Abdominal ultrasound done, cholecystitis not found but cholelithiasis seen. We will follow-up on outpatient basis. Cardiology planning intervention in AM. (2) CKD (chronic kidney disease) Current Visit: No Status: Chronic Qualifiers: Chronic kidney disease stage: stage 3 (moderate) Chronic kidney disease stage 3 subtype: stage 3a (GFR 45-59) Qualified Code(s): N18.31 - Chronic kidney disease, stage 3a . Stable kidney function. (3) DM2 (diabetes mellitus, type 2) Onset Date: 07/17/14 Current Visit: No Status: Chronic Qualifiers: Diabetes mellitus director long term care insulin use: without [facility] use Diabetes mellitus complication status: without complication Qualified Code(s): E11.9 - Type 2 diabetes mellitus without complications (4) HTN (hypertension) Onset Date: 07/17/14 Current Visit: No Status: Chronic Qualifiers: Hypertension type: renovascular hypertension Qualified Code(s): I15.0 - Renovascular hypertension Vital signs stable. Monitor vital signs per unit protocol. Anxiety: Patient has significant issues with anxiety and responded well to short acting anxiolytic of Ativan. Will start oral fluoxetine and follow symptoms closely. Prophylaxis: Lovenox for DVT prophylaxis CODE STATUS: Full code. Disposition: Pending cardiology clearance for discharge. Physician Review: Patient Assessed, Agree with Above Assessment and Plan
[2023-07-07] MEDS: MORPHINE 4 MG/ML SYR IV PRN (21:15)
[2023-07-07] MEDS: MELATONIN 5 MG TABLET PO PRN (21:15)
[2023-07-08] MEDS: HEPARIN 5000 UNIT/ML 1 ML VIAL SQ SCH ×3 (01:00→17:00)
[2023-07-08] MEDS: METOPROLOL TAR 25 MG TAB PO SCH ×2 (04:46→18:00)
[2023-07-08 07:30] LABS: Absolute Lymphocytes (CBC) 0.9 K/uL (0.7-4.9); Hematocrit 39.3 % (39.6-49.0); Lymphocytes % 10.6 % (15.3-44.8); MCV 95.3 fL (80-100); MPV 7.7 fL (7.6-11.3); Platelets 198 thou/uL (152-406); RBC Red Blood Cell Count 4.12 M/uL (4.33-5.43)
[2023-07-08] MEDS: INSULIN REGULAR (HUMAN) 100 UNIT/ML SQ SCH ×4 (07:30→19:51)
[2023-07-08 07:39] LABS: Protime INR 1.03
[2023-07-08 07:55] LABS: Potassium 4.2 mEq/L (3.5-5.1)
[2023-07-08] MEDS: FLUOXETINE 10 MG CAP PO SCH (08:22)
[2023-07-08] MEDS: ASPIRIN EC 81 MG TAB PO SCH (08:22)
[2023-07-08] MEDS: MORPHINE 4 MG/ML SYR IV PRN (10:44)
[2023-07-08] MEDS ORDERED: LORazepam 2 MG/ML VIAL IV ONE (12:24)
[2023-07-08] MEDS ORDERED: NA CHLORIDE 0.9% 500 ML ONE (14:21)
[2023-07-08] MEDS ORDERED: LIDOCAINE 1% 20 ML MDV ONE (15:38)
[2023-07-08] MEDS ORDERED: HEPA 1000U/500MLS 2,000 UNIT/1,000 ML BAG IV ONE (15:38)
[2023-07-08] MEDS ORDERED: FENTANYL CITR 100 MCG/2 ML ONE (15:39)
[2023-07-08] MEDS ORDERED: MIDAZOLAM HCL 2 MG/2 ML INJ ONE (15:39)
[2023-07-08] MEDS ORDERED: HEPARIN 10,000 UNIT/10 ML VIAL IV ONE (15:39)
[2023-07-08] MEDS ORDERED: ASPIRIN 325 MG TAB ONE (15:39)
[2023-07-08] MEDS ORDERED: ATROPINE SULF 1 MG/10 ML SYR IV ONE (15:40)
[2023-07-08] MEDS ORDERED: TICAGRELOR 90 MG TABLET PO ONE (15:40)
[2023-07-08] MEDS ORDERED: CLOPIDOGREL 75 MG TABLET ONE (15:41)
--- NOTE | 2023-07-08 16:10 | P.PN ---
Subjective Date of Service: 07/09/23 Chief Complaint: Chest Pain Subjective: No new changes, Improving Physical Examination - Vital Signs Temperature: 98.9 F Blood Pressure: 188/80 Pulse: 79 Respirations: 25 Pulse Ox (%): 97 - Physical Exam General: Alert HEENT: Atraumatic Neck: Supple Respiratory: Normal air movement Cardiovascular: Regular rate/rhythm, Normal S1 S2 Gastrointestinal: Soft and benign Musculoskeletal: No swelling Neurological: Normal speech - Studies Laboratory Data (last 24 hrs) 07/08/23 07/08/23 07/08/23 07:06 07:06 07:06 WBC 8.00 Hgb 13.4 L Hct 39.3 L Plt Count 198 PT 11.3 INR 1.03 Sodium 138 Potassium 4.2 BUN 28 H Creatinine 1.49 H Glucose 183 H Assessment And Plan - Plan Assessment and Plan - Problems (Diagnosis) (1) Chest pain, rule out acute myocardial infarction Current Visit: No Status: Acute He had abnormal stress test that prompted left heart catheter showed significant abnormality and multiple vessels. Discussion about bypass graft surgery discussed. Patient refused procedure because of denominational beliefs and unwillingness to have blood transfusion. Will continue to follow clinical symptomatology. Continue aspirin therapy and will follow-up with cardiology on outpatient basis to discuss further about intervention. (2) CKD (chronic kidney disease) Current Visit: No Status: Chronic Qualifiers: Chronic kidney disease stage: stage 3 (moderate) Chronic kidney disease stage 3 subtype: stage 3a (GFR 45-59) Qualified Code(s): N18.31 - Chronic kidney disease, stage 3a . Stable kidney function. (3) DM2 (diabetes mellitus, type 2) Onset Date: 07/17/14 Current Visit: No Status: Chronic Qualifiers: Diabetes mellitus buttermaker continuous churn insulin use: without buttermaker continuous churn use Diabetes mellitus complication status: without complication Qualified Code(s): E11.9 - Type 2 diabetes mellitus without complications (4) HTN (hypertension) Onset Date: 07/17/14 Current Visit: No Status: Chronic Qualifiers: Hypertension type: renovascular hypertension Qualified Code(s): I15.0 - Renovascular hypertension Vital signs stable. Monitor vital signs per unit protocol Prophylaxis: Lovenox for DVT prophylaxis CODE STATUS: Full code. Disposition: For discharge in a.m. Physician Review: Patient Assessed, Agree with Above Assessment and Plan
--- NOTE | 2023-07-08 17:00 | EKG ---
Test Date: 2023-07-05 Test Time: 17:47:33 Mold Bunch Trimmer: BETI MEASUREMENT RESULTS: Intervals: Rate: 76 IA: 232 QRSD: 130 QT: 410 QTc: 461 [place]: P: 51 IA: 232 QRS: 46 T: 44 INTERPRETIVE STATEMENTS: Sinus rhythm with 1st degree AV block Right bundle branch block Abnormal ECG Compared to ECG 06/20/2023 02:54:48 No significant changes Electronically Signed On 07-08-23 16:53:30 RECLAMATION SUPERVISOR by Josh Osei
--- NOTE | 2023-07-08 17:01 | OP ---
Date of Procedure: 07/08/2023 Surgeon: CYNDIE GREY Procedures Performed: 1.Selective coronary angiogram. 2.Left heart catheterization. Indication: Unstable angina with abnormal stress test. Access: Right femoral artery 6-Djiboutian closed with 6-D[place]ib[place]ian Angio-Seal. Complications: None. Bleeding: Less than 20 mL. Anesthesia: Total sedation time was 30 minutes. Description Of Procedure: After risks, benefits, alternatives were explained, patient agreed to proc edure, and signed informed consent. The patient was [facility], prepped and draped in the usual sterile fashion and then I accessed right femoral artery using m icropuncture kit, ultrasound guidance, and fluoroscopy, placed a 6-D[place]iboutian [place] sheath and took 6- [place] JL4 catheter into the aortic root, engaged left main, took standard views and exchanged for 6- [place] JR4 catheter, engaged the RCA, took standard views and the catheter was pushed over the wire i nto the LV. Measured the LVEDP, pullback did not record any gradient. I removed the catheter and th e sheath and placed a 6-[place]ib[place]ian Angio-Seal for closure with good hemostasis. Findings: 1.Left main; it is large with proximal 40% and distal 60% to 70% stenosis. 2.LAD; ostial 60% and then proximal 80% to 90% stenosis right before the diagonal takeoff and then d iagonal is a very large branch has proximal 60%, and the LAD becomes normal all the way to the distal segment has focal 60% stenosis. 3.Left circumflex; moderate size with ostial 70% stenosis. 4.RCA; large and dominant, proximal 30%. The PLB has 20% stenosis. 5.LVEDP is normal at 6 mmHg. 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 Recommendations: CABG evaluation. If the patient is not a candidate, he can be done as a high-risk PCI at a tertiary center in [place]. The patient can be released from Cardiology standpoint and t o follow up with me in the office in 1 week and I will arrange for him to be seen by CT Surgery. SR/MODL Voice ID: [id number] Report ID: [id number]
[2023-07-08] MEDS: MELATONIN 5 MG TABLET PO PRN (20:58)
[2023-07-08 21:53] VITALS: O2SAT 94
[2023-07-09] MEDS: HEPARIN 5000 UNIT/ML 1 ML VIAL SQ SCH ×3 (00:50→16:13)
[2023-07-09] MEDS: MORPHINE 4 MG/ML SYR IV PRN ×2 (00:52→07:51)
[2023-07-09] MEDS: METOPROLOL TAR 25 MG TAB PO SCH ×2 (05:31→17:43)
[2023-07-09] MEDS: INSULIN REGULAR (HUMAN) 100 UNIT/ML SQ SCH ×3 (07:30→16:12)
[2023-07-09] MEDS: ASPIRIN EC 81 MG TAB PO SCH (08:30)
[2023-07-09] MEDS: FLUOXETINE 10 MG CAP PO SCH (08:30)
[2023-07-09] MEDS ORDERED: COLCHICINE 0.6 MG TAB PO ONE (11:19)
[2023-07-09] MEDS ORDERED: KETOROLAC 30 MG/ML INJ IV ONE (11:19)
[2023-07-09 14:00] VITALS: BP 188/80; TEMP 98.9
--- NOTE | 2023-07-09 14:03 | P.DS ---
Admission Date: 07/08/23 Discharge Date: 07/09/23 Disposition: ROUTINE DISCHARGE Discharge Condition: GOOD Reason for Admission: Chest Pain Brief History of Present Illness: Mr. Pelayo is a 82-year-old male patient with a past medical history of diabetesNIDDM, hypertension, kidney stones present to the ER via EMS with complaints of chest pain. Patient reports of chest pain that is located primarily in the substernal area, started just prior to arrival to the ED. The pain does not radiate, associated with diaphoresis, lightheadedness and palpitations. The chest pain is described as heaviness. Symptoms are alleviated by nitroglycerin x1 by the EMS prior to arrival to the hospital. Patient also was given aspirin by the EMS. Patient has not experienced similar symptoms in the past. Patient denies any chest pain at this time, denies shortness of breath or palpitation. Patient denies fever chills, abdominal pain nausea or vomiting. ED course Vital signs blood pressure 163/80, pulse 72, respiration 18, temperature 98, pulse ox 100% on room air. EKG sinus rhythm with first-degree heart block, with a right bundle branch block, rhythm is regular, MN is prolonged, QRS interval is normal QT interval is 461, no ST changes noted. Initial laboratory findings significant for elevated BUN 35, creatinine 1.53, low GFR 45. CBC is normal. X-ray shows no acute intrathoracic process but suspected mild COPD. CT angio aorta for dissection is negative. Admitting the patient the diagnosis of chest pain unspecified. Hospital Course: He was admitted for possible chest pain work-up and was found to have cholelithiasis without cholecystitis. His troponin trend was negative. He was worked up by cardiology service with stress test that was abnormal and he had left heart cath that showed multivessel coronary artery disease with significant stenosis. There was discussion about cardiac bypass graft surgery but patient declined offer because of faith beliefs about blood transfusion. We discussed with patient the possibility of adverse event from refusing intervention but patient declined repeatedly. He did have issues with anxiety that warranted start of 6 SSRIs for management. He also did not have episode of gout flare on the right knee that warranted Toradol dose x 1 with culture sent and improved significantly. He was discharged in stable condition to continue pain cultures and for management of acute gout and also dose of fluoxetine and follow-up with his primary care doctor for management of anxiety. He will follow-up with numerical control drill press operator Dr. Osei as scheduled outpatient. Vital Signs/Physical Exam: Temp Pulse Resp BP Pulse Ox 98.9 F 79 25 H 188/80 H 97 07/09/23 14:00 07/09/23 14:00 07/09/23 14:00 07/09/23 14:00 07/09/23 14:00 General: Alert HEENT: Atraumatic Neck: Supple Respiratory: Normal air movement Cardiovascular: Regular rate/rhythm, Normal S1 S2 Gastrointestinal: Soft and benign Musculoskeletal: No swelling Neurological: Normal speech Laboratory Data at Discharge: WBC 8.00 thou/uL (4.3-10.9) 07/08/23 07:06 Hgb 13.4 g/dL (13.6-17.9) L 07/08/23 07:06 Hct 39.3 % (39.6-49.0) L 07/08/23 07:06 Plt Count 198 thou/uL (152-406) 07/08/23 07:06 PT 11.3 SECONDS (9.5-12.5) 07/08/23 07:06 INR 1.03 07/08/23 07:06 Sodium 138 mEq/L (136-145) 07/08/23 07:06 Potassium 4.2 mEq/L (3.5-5.1) 07/08/23 07:06 BUN 28 mg/dL (7-18) H 07/08/23 07:06 Creatinine 1.49 mg/dL (0.70-1.30) H 07/08/23 07:06 Glucose 183 mg/dL (74-106) H 07/08/23 07:06 Phosphorus Cancelled 07/06/23 05:00 Magnesium 2.6 mg/dL (1.6-2.4) H 07/05/23 17:50 Total Bilirubin 0.3 mg/dL (0.2-1.0) 07/05/23 17:50 AST 21 U/L (15-37) 07/05/23 17:50 ALT 37 U/L (16-61) 07/05/23 17:50 Alkaline Phosphatase 84 U/L (45-117) 07/05/23 17:50 Triglycerides 87 mg/dL (<150) 07/05/23 20:52 Cholesterol 116 mg/dL (<200) 07/05/23 20:52 HDL Cholesterol 36 mg/dL (40-60) L 07/05/23 20:52 Cholesterol/HDL Ratio 3.22 07/05/23 20:52 Home Medications: Glimepiride 4 mg PO BID 30 Days #60 tab 08/07/21 Metoprolol Tartrate [Lopressor*] 25 mg PO BID 6AM 6PM 30 Days #60 tab 08/07/21 Fluoxetine HCl 10 mg PO DAILY #30 07/07/23 Melatonin 10 mg PO BEDTIME PRN PRN #30 07/07/23 Aspirin [Aspirin EC 81 MG] 81 mg PO DAILY #30 07/09/23 New Medications: Aspirin [Aspirin EC 81 MG] 81 mg PO DAILY #30 Fluoxetine HCl 10 mg PO DAILY #30 Melatonin 10 mg PO BEDTIME PRN PRN #30 PRN Reason: Insomnia Diet: ADA Followup: Lalo Munroe DO, DO [Primary Care Provider] -
== END 2023-07-09 18:31 | disposition home or self-care (01) | DRG 446 ==
LOC: ER 17:43 → ERHOLD 19:59 → 4TH 21:37 → OBSVTOIN 07-08 12:01
PROVIDERS: ADMIT Hospitalist; ATTEND Internal Medicine Nephrology
PROC: 4A023N7 Measurement of Cardiac Sampling and Pressure, Left Heart, Percutaneous Approach (ICD-10-PCS; principal; 2023-07-08)
PROC: B2111ZZ Fluoroscopy of Multiple Coronary Arteries using Low Osmolar Contrast (ICD-10-PCS; 2023-07-08)
DX: K80.20 Calculus of gallbladder without cholecystitis without obstruction (principal); I45.19 Other right bundle-branch block; I44.0 Atrioventricular block, first degree; I15.0 Renovascular hypertension; N18.31 Chronic kidney disease, stage 3a; E11.22 Type 2 diabetes mellitus with diabetic chronic kidney disease; N20.0 Calculus of kidney; F41.9 Anxiety disorder, unspecified; G47.00 Insomnia, unspecified; J44.9 Chronic obstructive pulmonary disease, unspecified; I25.10 Atherosclerotic heart disease of native coronary artery without angina pectoris; Z79.02 Long term (current) use of antithrombotics/antiplatelets; Z79.84 Long term (current) use of oral hypoglycemic drugs; Z79.82 Long term (current) use of aspirin; Z87.891 Personal history of nicotine dependence; Z79.899 Other long term (current) drug therapy
CPT/HCPCS: 36415; 71045; 71275; 74175; 76705; 76937; 78452; 80048; 80061; 80076; 82947; 83036; 83735; 83880; 84100; 84439; 84443; 84484; 85025; 85610; 93005; 93017; 93306; 93458; 96374; 99285; A9500; C1760; C1893; G0269; J0461; J1644; J1815; J2001; J2250; J2270; J2785; J3010; J7040; Q0162; Q9966; Q9967

== ENCOUNTER 2023-07-13 10:01 | Emergency (ER) | payer OTHER ==
--- OUTSIDE RECORDS SUMMARY | 2023-07-13 10:13 | XMS REPORT | Continuity of Care Document ---
:1940 Author Organization [facility] t Address [address] [place] [address] [place] [id number] Care Team Providers Name Role Phone Munroe, Lalo Attending Clinician Unavailable Problems Condition Condition Condition Status Onset Resolution Last Treating Co mments Source Name Details Category Date Date Treatment Clinician Date Microscopi Problem Co mmon c [facility] hematuria [facility] History of History of Problem C ommon nephrolith nephrolith Sp kirill iasis iasis [facility] Left flank Left flank Problem C ommon pain pain [facility] Benign BPH loc w Problem Common prostatic urin Spirit hypertroph obs/LUTS - [facility] y with [facility] Allergies, Adverse Reactions, Alerts This patient has no known allergies or adverse reactions. Social History Social Habit Start Date Stop Date Quantity Comments Source History of Tobacco Use Co mmon [facility] Sex Assigned At Com mon [facility] Smoking Status Start Date Stop Date Source Never Smoker [facility] Medications Ordered Filled Start Stop Current Ordering Indication Dosage Frequency Signature Comments Components Source Medication Medication Date Date Medication? Clinician (SIG) Name Name Amoxicillin Amoxicillin No 1{capsu TID Amoxicilli 500 MG 500 MG 5-31 le} n 500 MG 00:00: 00 Amoxicillin Amoxicillin 0 No 1{capsu TID Amoxicilli 500 MG 500 MG 5-31 le} n 500 MG 00:00: 00 Metoprolol Metoprolol No 1{capsu QD Metoprolol Succinate Succinate le} Succinate 25 MG 25 MG 25 MG Glimepiride Glimepiride No 1{table QD Glimepirid 4 MG 4 MG t_with_ e [address]_or_t he_firs t_main_ meal_of _the_da y} Metoprolol Metoprolol No 1{capsu QD Metoprolol Succinate Succinate le} Succinate 25 MG 25 MG 25 MG Glimepiride Glimepiride No 1{table QD Glimepirid 4 MG 4 MG t_with_ e [address]_or_t he_firs t_main_ meal_of _the_da y} Vital Signs Vital Name Observation Time Observation Value Comments Source height 2023-01-08 15:15:00 72 [in_i] [facility] weight 2023-01-08 15:15:00 160.8 [lb_av] [facility] temperature 2023-01-08 15:15:00 97.9 [degF] [facility] bmi 2023-01-08 15:15:00 21.81 kg/m2 [facility] oximetry 2023-01-08 15:15:00 99 % [facility] respiratory rate 2023-01-08 15:15:00 18 /min Comm on [facility] blood pressure 2023-01-08 15:15:00 199 mm[Hg] [facility] - systolic [facility] blood pressure 2023-01-08 15:15:00 86 mm[Hg] [facility] diastolic [facility] Procedures This patient has no known procedures. Encounters Start End Encounter Admission Attending Care Care Encounter Source Date/Time Date/Time Type Type Clinicians Facility Department ID 2023-01-08 Outpatient Munroe, BRIANNA STAIYANALC [id number] Common 13:53:03 [facility]ly [facility] [id number] [facility] 2023-01-14 2023-01-14 (TEL) [facility] [id number] Co mmon 00:00:00 00:00:00 [facility] 2023-01-08 2023-01-08 [facility]ICE [facility] [id number] Co mmon 00:00:00 00:00:00 VISIT [facility] PT LEVEL 3 - [facility] Results This patient has no known results.
--- NOTE | 2023-07-13 11:10 | RAD REPORT ---
EXAM DESCRIPTION: RAD - Chest Single View - 07/13/2023 10:47 am CLINICAL HISTORY: CHEST PAIN Chest pain. COMPARISON: Chest Single View dated 07/05/2023; Chest Single View dated 06/20/2023; Chest Single View dated 06/18/2023; Chest Single View dated 03/09/2023 FINDINGS: Portable technique limits examination quality. The lungs are emphysematous but grossly clear. The heart is upper limit normal in size. No displaced fractures. IMPRESSION: No acute intrathoracic process suspected. Mild COPD.
[2023-07-13 11:30] LABS: Absolute Lymphocytes (CBC) 1.1 K/uL (0.7-4.9); Hematocrit 40.9 % (39.6-49.0); MCV 95.1 fL (80-100); MPV 7.5 fL (7.6-11.3); Platelets 220 thou/uL (152-406)
[2023-07-13 14:20] LABS: Albumin 2.9 g/dL (3.4-5.0); Bilirubin Direct 0.1 mg/dL (0-0.2); Bilirubin Indirect, Calculated 0.3 mg/dL (0.2-0.8); Bilirubin Total 0.4 mg/dL (0.2-1.0); Magnesium 2.6 mg/dL (1.6-2.4); Troponin High Sensitivity 7.3 pg/mL (<58.9)
--- NOTE | 2023-07-13 15:06 | ER ---
Nurse's Notes [facility] Name: Yeyo Pelayo Age: 82 yrs Sex: Male : 1940 Arrival Date: 07/13/2023 Time: 10:01 Bed 16 Private MD: Diagnosis: Chest pain, unspecified Presentation: 07/13 10:41 Chief complaint: EMS states: toned out for sharp chest pain and back pain beginning tm6 about 40 min ago. Coronavirus screen: Client denies travel out of the [place] in the last 14 days. Ebola Screen: Patient negative for fever greater than or equal to 101.5 degrees Fahrenheit, and additional compatible Ebola Virus Disease symptoms Patient denies exposure to infectious person. Patient denies travel to an Ebola-affected area in the 21 days before illness onset. No symptoms or risks identified at this time. Initial Sepsis Screen: Does the patient meet any 2 criteria? No. Patient's initial sepsis screen is negative. Does the patient have a suspected source of infection? No. Patient's initial sepsis screen is negative. Risk Assessment: Do you want to hurt yourself or someone else? Patient reports no desire to harm self or others. Onset of symptoms was July 13, 2023. 10:41 Method Of Arrival: EMS: [facility] tm6 10:41 Acuity: KEN 3 tm6 Triage Assessment: 10:43 General: Appears in no apparent distress. Behavior is calm, cooperative. Pain: tm6 Complains of pain in back and chest Pain currently is 2 out of 10 on a pain scale. Pain began 1 hour ago. EENT: No signs and/or symptoms were reported regarding the EENT system. Neuro: Level of Consciousness is awake, alert, obeys commands, Oriented to person, place, time, situation. Cardiovascular: Reports chest pain, Capillary refill < 3 seconds Patient's skin is warm and dry. Respiratory: Airway is patent Respiratory effort is even, unlabored, Respiratory pattern is regular, symmetrical. GI: Abdomen is flat, non-distended, Abd is soft and non tender. : No signs and/or symptoms were reported regarding the genitourinary system. Derm: No signs and/or symptoms reported regarding the dermatologic system. Musculoskeletal: No signs and/or symptoms reported regarding the musculoskeletal system. Historical: - PMHx: 10:42 Diabetes - NIDDM; Hypertension; Kidney stones; tm6 - PSHx: 10:42 Lithotripsy; Stented artery; tm6 - Immunization history:: Adult Immunizations up to date. - Social history:: Smoking status: unknown. - Family history:: not pertinent. Screenin:02 [facility] ED Fall Risk Assessment (Adult) History of falling in the last 3 months, tm6 including since admission No falls in past 3 months (0 pts). Abuse screen: Denies threats or abuse. Denies injuries from another. Nutritional screening: No deficits noted. Tuberculosis screening: No symptoms or risk factors identified. Assessment: 11:02 Reassessment: see triage assessment. tm6 11:12 Reassessment: Patient appears in no apparent distress at this time. No changes from tm6 previously documented assessment. Patient and/or family updated on plan of care and expected duration. Pain level reassessed. Patient is alert, oriented x 3, equal unlabored respirations, skin warm/dry/pink. 12:25 Reassessment: Patient appears in no apparent distress at this time. No changes from tm6 previously documented assessment. 13:19 Reassessment: Patient appears in no apparent distress at this time. No changes from tm6 previously documented assessment. Patient and/or family updated on plan of care and expected duration. Pain level reassessed. Patient is alert, oriented x 3, equal unlabored respirations, skin warm/dry/pink. 14:57 Reassessment: Patient appears in no apparent distress at this time. No changes from tm6 previously documented assessment. Patient and/or family updated on plan of care and expected duration. Pain level reassessed. Vital Signs: 10:41 BP 180 / 70; Pulse 60; Pulse Ox 100% on R/A; Pain 2/10; tm6 10:43 Temp 98.6(O); tm6 11:13 BP 163 / 67; Pulse 50; Resp 17; Pulse Ox 100% on R/A; tm6 11:44 BP 165 / 65; Pulse 52; Pulse Ox 100% ; tm6 12:23 BP 147 / 58; Pulse 50; Pulse Ox 97% on R/A; tm6 13:19 BP 151 / 69; Pulse 50; Pulse Ox 99% on R/A; tm6 14:07 BP 152 / 67; Pulse 52; Pulse Ox 100% on R/A; tm6 14:58 BP 160 / 70; Pulse 64; Resp 18; Pulse Ox 100% ; tm6 10:41 Pain Scale: Adult tm6 Vitals: 11:02 Cardiac Rhythm Assessment Regular Sinus maxi. tm6 ED Course: 10:21 Patient arrived in ED. hb 10:23 Canelo Ritchie MD is Attending Physician. rt 10:38 Meron Lopez, RN is Primary Nurse. tm6 10:42 Triage completed. tm6 10:49 XRAY Chest (1 view) In Process Unspecified. EDMS 11:02 Arm band placed on right wrist. EKG completed in triage. Results shown to MD. tm6 11:02 Patient has correct armband on for positive identification. Placed in gown. Bed in low tm6 position. Call light in reach. Side rails up X2. Provided Education on: need for cardiac monitoring. Door closed. Noise minimized. 11:02 No provider procedures requiring assistance completed. Maintain EMS IV. Dressing tm6 intact. Good blood return noted. Site clean \T\ dry. Gauge \T\ site: 20g RAC. 15:05 Josh Osei MD is Referral Physician. rt 15:19 IV discontinued, intact, bleeding controlled, No redness/swelling at site. Pressure tm6 dressing applied. Administered Medications: 11:23 Not Given (patient denies chest and back painn): nitroglycerin0.4 mg Sublingual once; tm6 every five minute if needed x3 15:18 Drug: LORazepam PO 1 mg PO once Route: PO; tm6 Medication: 11:02 VIS not applicable for this client. tm6 Outcome: 15:05 Discharge ordered by . rt 15:19 Discharged to home ambulatory, tm6 15:19 Condition: stable 15:19 Discharge instructions given to patient, Instructed on discharge instructions, follow up and referral plans. medication usage, Demonstrated understanding of instructions, follow-up care, medications, Prescriptions given X 1, 15:19 Patient left the ED. tm6 Signatures: Dispatcher [employer] EDPA Tabby Diamond RN RN Canelo Ritchie MD MD rt Meron Lopez, CACHORRO RN tm6
--- NOTE | 2023-07-13 15:06 | EDPHYS ---
Physician Documentation [facility] Name: Yeyo Pelayo Age: 82 yrs Sex: Male : 1940 Arrival Date: 07/13/2023 Time: 10: Bed 16 Private MD: ED Physician Canelo Ritchie HPI: 07/13 10:29 This 82 yrs old Male presents to ER via Unassigned with complaints of Chest pain. rt 10:29 Patient presents to the ED with nonexertional chest pain for about 30 minutes prior to rt arrival, is pressure-like in nature. Also reports sharp back pain starting last night. Denies shortness of breath, acute complaints. 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 Symptoms are moderate severity, no other aggravating elevating factors. He did receive 324 of aspirin prior to arrival.. Historical: - PMHx: 10:42 Diabetes - NIDDM; Hypertension; Kidney stones; tm6 - PSHx: 10:42 Lithotripsy; Stented artery; tm6 - Immunization history:: Adult Immunizations up to date. - Social history:: Smoking status: unknown. - Family history:: not pertinent. ROS: 10:29 Constitutional: Negative for fever, chills, and weight loss, Respiratory: Negative for rt shortness of breath, cough, wheezing, and pleuritic chest pain, Abdomen/GI: Negative for abdominal pain, nausea, vomiting, diarrhea, and constipation, MS/Extremity: Negative for injury and deformity, Skin: Negative for injury, rash, and discoloration, Neuro: Negative for headache, weakness, numbness, tingling, and seizure, Psych: Negative for depression, anxiety, suicide ideation, homicidal ideation, and hallucinations, 10:29 Cardiovascular: Positive for chest pain, Negative for edema, 10:29 Back: Positive for pain at rest, Negative for injury or acute deformity, Exam: 10:29 Constitutional: This is a well developed, well nourished patient who is awake, alert, rt and in no acute distress. Head/Face: Normocephalic, atraumatic. Chest/axilla: Normal chest wall appearance and motion. Nontender with no deformity. No lesions are appreciated. Cardiovascular: Regular rate and rhythm with a normal S1 and S2. No gallops, murmurs, or rubs. Normal PMI, no JVD. No pulse deficits. Respiratory: Lungs have equal breath sounds bilaterally, clear to auscultation and percussion. No rales, rhonchi or wheezes noted. No increased work of breathing, no retractions or nasal flaring. Abdomen/GI: Soft, non-tender, with normal bowel sounds. No distension or tympany. No guarding or rebound. No evidence of tenderness throughout. Skin: Warm, dry with normal turgor. Normal color with no rashes, no lesions, and no evidence of cellulitis. MS/ Extremity: Pulses equal, no cyanosis. Neurovascular intact. Full, normal range of motion. Neuro: Awake and alert, GCS 15, oriented to person, place, time, and situation. Cranial nerves II-XII grossly intact. Motor strength 5/5 in all extremities. Sensory grossly intact. Cerebellar exam normal. Normal gait. Psych: Awake, alert, with orientation to person, place and time. Behavior, mood, and affect are within normal limits. 11:39 ECG was reviewed by the Attending Physician. rt Vital Signs: 10:41 BP 180 / 70; Pulse 60; Pulse Ox 100% on R/A; Pain 2/10; tm6 10:43 Temp 98.6(O); tm6 11:13 BP 163 / 67; Pulse 50; Resp 17; Pulse Ox 100% on R/A; tm6 11:44 BP 165 / 65; Pulse 52; Pulse Ox 100% ; tm6 12:23 BP 147 / 58; Pulse 50; Pulse Ox 97% on R/A; tm6 13:19 BP 151 / 69; Pulse 50; Pulse Ox 99% on R/A; tm6 14:07 BP 152 / 67; Pulse 52; Pulse Ox 100% on R/A; tm6 14:58 BP 160 / 70; Pulse 64; Resp 18; Pulse Ox 100% ; tm6 10:41 Pain Scale: Adult tm6 MDM: 10:23 Patient medically screened. rt 21:35 Differential diagnosis: Coronary disease, acute IA, abnormal EKG. HEART Score: History: rt Highly Suspicious (2), ECG: Non specific repolarization disturbance / LBTB / PM (1), Age: > or = 65 years (2), Risk Factors: > or = 3 Risk factors for atherosclerotic disease (2), Troponin: < or = 1 x Normal Limit (0), Total Score = 7. The patient was not given aspirin in the Emergency Department. Patient reports taking aspirin within the past 24 hours. Data reviewed: vital signs, nurses notes, old medical records, lab test result(s), EKG, radiologic studies. Consideration of Admission/Observation Escalation of care including admission/observation considered. After discussion with director of assessing who recommended transfer, I strongly recommended the patient be transferred for consideration of advanced PCI versus CABG. Patient states that he strongly does not wish to be transferred to tertiary care center. I informed the patient that with his significant coronary artery disease, he is at a high risk of having an IA with possibilities of or permanent disability. Patient verbalized understanding, states that he is willing to assume that risk. He does have decisional making capacity. He understands that he may return at any time if he changes mind or if he develops worsening symptoms.. Management of patient was discussed with the following: Pole Peeler: Discussed with the patient's director of assessing. I considered the following discharge prescriptions or medication management in the emergency department Medications were administered in the Emergency Department. See MAR. Independent interpretation of the following test(s) in the Emergency Department X-Ray: My interpretation is No consolidations, interpretation of x-ray images. Care significantly affected by the following chronic conditions: Coronary artery disease. Counseling: I had a detailed discussion with the patient and/or guardian regarding the historical points, exam findings, and any diagnostic results supporting the discharge/admit diagnosis, lab results, radiology results, the need to transfer to another facility. Refusal of service: The patient/guardian displays adequate decision making capability and despite a detailed discussion of alternatives, benefits, risks, and consequences refuses: Admission to the hospital for further work-up and treatment. 07/13 10:24 Order name: Basic Metabolic Panel; Complete Time: 14:20 rt 07/13 10:24 Order name: CBC with Diff; Complete Time: 12:23 rt 07/13 10:24 Order name: LFT's; Complete Time: 14:20 rt 07/13 10:24 Order name: Magnesium; Complete Time: 14:20 rt 07/13 10:24 Order name: NT PRO-BNP; Complete Time: 14:20 rt 07/13 10:24 Order name: Troponin HS; Complete Time: 14:20 rt 07/13 11:45 Order name: Glucose, Ancillary Testing; Complete Time: 12:23 EDMS 07/13 10:24 Order name: XRAY Chest (1 view); Complete Time: 11:24 rt 07/13 10:24 Order name: EKG; Complete Time: 10:25 rt 07/13 10:24 Order name: Cardiac monitoring; Complete Time: 11:06 rt 07/13 10:24 Order name: EKG - Nurse/Tech; Complete Time: 11:06 rt 07/13 10:24 Order name: IV Saline Lock; Complete Time: 10:38 rt 07/13 10:24 Order name: Labs collected and sent; Complete Time: 10:46 rt 07/13 10:24 Order name: O2 Per Protocol; Complete Time: :46 rt 07/13 10:24 Order name: O2 Sat Monitoring; Complete Time: :46 rt 07/13 12:55 Order name: Labs - recollect needed: recollect green top; Complete Time: 13:49 hb EC:39 Rate is 53 beats/min. Rhythm is regular, Sinus bradycardia with No ectopy, Right bundle rt branch block. QRS Isle is Normal. ME interval is normal. QRS interval is normal. QT interval is normal. No Q waves. Administered Medications: 11:23 Not Given (patient denies chest and back painn): nitroglycerin0.4 mg Sublingual once; tm6 every five minute if needed x3 15:18 Drug: LORazepam PO 1 mg PO once Route: PO; tm6 Disposition Summary: 07/13/23 15:05 Discharge Ordered Notes: Location: Home rt Problem: an ongoing problem rt Symptoms: have improved rt Condition: Fair rt Diagnosis - Chest pain, unspecified rt Followup: rt - With: Josh Osei MD - When: 7 - 10 days - Reason: Discharge Instructions: - Discharge Summary Sheet rt Forms: - Medication Reconciliation Form rt - Thank You Letter rt - Antibiotic Education rt - Prescription Opioid Use rt - Patient Portal Instructions rt - Leadership Thank You Letter rt Prescriptions: - Ativan 1 mg Oral Tablet - take 1 tablet ORAL route every 8 hours As needed; 20 tablet; Refills: 0, rt Product Selection Permitted Signatures: Dispatcher [facility] Tabby Diamond RN RN Canelo Ritchie MD MD rt John, Tawney, RN RN tm6
[2023-07-13] MEDS ORDERED: LORAZEPAM 1 MG TABLET ONE (15:23)
[2023-07-13 15:35] VITALS: TEMP 98.6
[2023-07-13 15:42] VITALS: O2SAT 100
[2023-07-13 15:44] VITALS: BP 160/70
--- NOTE | 2023-07-16 15:28 | EKG ---
Test Date: 2023-07-13 Test Time: 10:49:05 Exterior Designer: Chely EN[place] MEASUREMENT RESULTS: Intervals: Rate: 53 CT: 242 QRSD: 142 QT: 470 QTc: 441 [place]: P: 62 CT: 242 QRS: 76 T: 61 INTERPRETIVE STATEMENTS: Sinus bradycardia with 1st degree AV block Right bundle branch block Abnormal ECG Compared to ECG 07/05/2023 17:47:33 Sinus rhythm no longer present Electronically Signed On 07-16-23 15:16:08 BULKER by Josh Osei
== END 2023-07-13 15:19 | disposition home or self-care (01) ==
LOC: ER 10:01
DX: R07.9 Chest pain, unspecified (principal); E11.9 Type 2 diabetes mellitus without complications; I10 Essential (primary) hypertension
CPT/HCPCS: 36415; 71045; 80048; 80076; 82947; 83735; 83880; 84484; 85025; 93005; 99284

== ENCOUNTER 2023-07-15 18:50 | Observation (INO) | payer OTHER ==
[2023-07-15 19:26] LABS: Absolute Lymphocytes (CBC) 1.4 K/uL (0.7-4.9); Hematocrit 37.7 % (39.6-49.0); Lymphocytes % 17.2 % (15.3-44.8); MCV 93.9 fL (80-100); Platelets 284 thou/uL (152-406); RBC Red Blood Cell Count 4.02 M/uL (4.33-5.43)
--- OUTSIDE RECORDS SUMMARY | 2023-07-15 19:33 | XMS REPORT | Continuity of Care Document ---
:[address] [facility] t Address [address] [place] [address] [place] [id number] Care Team Providers Name Role Phone Munroe, Lalo Attending Clinician Unavailable Problems Condition Condition Condition Status Onset Resolution Last Treating Co mments Source Name Details Category Date Date Treatment Clinician Date Microscopi Problem Co mmon c [facility] hematuria [facility] History of History of Problem C ommon nephrolith nephrolith Sp kirill iasis iasis [facility] Left flank Left flank Problem C ommon pain pain [facility] Benign BPH loc w Problem Common prostatic urin Spirit hypertroph obs/LUTS - [facility] I y with [facility] Allergies, Adverse Reactions, Alerts This patient has no known allergies or adverse reactions. Social History Social Habit Start Date Stop Date Quantity Comments Source History of Tobacco Use Co mmon [facility] Sex Assigned At Com mon [facility] Smoking Status Start Date Stop Date Source Never Smoker [facility] Medications Ordered Filled Start Stop Current [...] Comments Source height 2023-01-08 15:15:00 72 [in_i] [facility] weight 2023-01-08 15:15:00 160.8 [lb_av] [facility] temperature 2023-01-08 15:15:00 97.9 [degF] [facility] bmi 2023-01-08 15:15:00 21.81 kg/m2 [facility] oximetry 2023-01-08 15:15:00 99 % [facility] respiratory rate 2023-01-08 15:15:00 18 /min Comm on [facility] blood pressure 2023-01-08 15:15:00 199 mm[Hg] [facility] systolic [facility] blood pressure 2023-01-08 15:15:00 86 mm[Hg] [facility] diastolic [facility] Procedures This patient has no known procedures. Encounters Start End Encounter Admission Attending Care Care Encounter Source Date/Time Date/Time Type Type Clinicians Facility Department ID 2023-01-08 Outpatient Munroe, BRIANNA STAIYANALC [id number] Common 13:53:03 [facility] [id number] [facility] 2023-01-14 2023-01-14 [facility]TEL[id number] Co mmon 00:00:00 00:00:00 [facility] 2023-01-08 2023-01-[address] [facility] [id number] Co mmon 00:00:00 00:00:00 VISIT [facility] PT LEVEL 3 - [facility] Results This patient has no known results.
[2023-07-15] MEDS ORDERED: ASPIRIN 81 MG CHEWABLE TABLET ONE (19:37)
[2023-07-15] MEDS ORDERED: NITROGLYCERIN 0.4 MG/TAB SL ONE (19:37)
[2023-07-15 20:18] LABS: Protime INR 1.14
--- NOTE | 2023-07-15 20:25 | RAD REPORT ---
EXAM DESCRIPTION: RADChest Single View07/15/2023 7:43 pm CLINICAL HISTORY: CHEST PAIN COMPARISON: Chest Single View dated 07/13/2023; Chest Single View dated 07/05/2023; Chest Single Vie w dated 06/20/2023; Chest Single View dated 06/18/2023 TECHNIQUE: Portable AP view of the chest. FINDINGS: The lungs are clear. Mild hyperinflation suggestive of COPD. No pneumothorax or effusion. The cardiomediastinal contours are unremarkable. IMPRESSION: No acute cardiopulmonary process.
[2023-07-15 20:39] LABS: Magnesium 2.8 mg/dL (1.6-2.4); Troponin High Sensitivity 6.5 pg/mL (<58.9)
[2023-07-15 21:19] LABS: Bilirubin Total 0.3 mg/dL (0.2-1.0); Potassium 4.2 mEq/L (3.5-5.1); Protein, Total 6.8 g/dL (6.4-8.2)
[2023-07-15] MEDS ORDERED: ALBUTEROL 2.5 MG/3 ML NEB SOL ONE (21:29)
[2023-07-15] MEDS ORDERED: IPRATROPIUM BROM 0.5MG/2.5ML ONE (21:29)
[2023-07-15] MEDS ORDERED: METHYLPREDNISOLONE 40 MG INJ ONE (21:30)
[2023-07-15 22:05] LABS: Urine Bacteria <20 /HPF (<20); Urine Bilirubin NEGATIVE (Negative); Urine Blood Trace (Negative); Urine Clarity Extremely Turbid (Clear); Urine Color Light-Yellow (Yellow); Urine Glucose NEGATIVE (Negative); Urine Mucus Slight /HPF (None Seen); Urine Protein NEGATIVE (Negative); Urine RBC None Seen /HPF (None Seen); Urine Urobilinogen Normal (Normal); Urine WBC Clump Moderate /HPF (None Seen)
[2023-07-15] MEDS ORDERED: LORazepam 2 MG/ML VIAL ONE (22:22)
[2023-07-15] MEDS ORDERED: NA CHLORIDE 0.9% 500 ML ONE (22:23)
--- NOTE | 2023-07-15 22:25 | RAD REPORT ---
EXAM DESCRIPTION: CT - Thorax Wo Con - 07/15/2023 9:57 pm CLINICAL HISTORY: chest pain COMPARISON: Thorax Wo Con dated 08/14/2021; Chest For Pe Angio dated 07/10/2021; Chest Abd Pelvis Wo Con dated 01/20/2021 TECHNIQUE: Axial thin cut images of the chest were obtained without IV contrast. Multiplanar reforma ts were generated and reviewed. All CT scans are performed using dose optimization technique as appropriate and may include automated exposure control or mA/KV adjustment according to patient size. FINDINGS: No mass or infiltrate in the lung parenchyma. No pleural thickening or pleural effusion. N o pneumothorax. No abnormal mediastinal or hilar masses or lymphadenopathy seen. No significant aortic or pulmonary a rtery findings. Assessment is limited in the absence of IV contrast. No chest wall mass or abnormal axillary lymphadenopathy. Evaluation of the solid abdominal structures reveals cholelithiasis. IMPRESSION: No acute process within the chest within limits of noncontrast evaluation. Cholelithiasis.
--- NOTE | 2023-07-15 22:55 | ER ---
Nurse's Notes [facility] Name: Yeyo Pelayo Age: 82 yrs Sex: Male : 1940 Arrival Date: 07/15/2023 Time: 18:50 Bed 18 Private MD: Diagnosis: Chest pain, unspecified;COPD/ Chronic obstructive pulmonary disease with (acute) exacerbation Presentation: 07/15 19:02 Chief complaint: EMS states: pt is from home and called ems for left sided chest and kc6 lung pain with difficulty breathing. reports pt was here 2 weeks ago. Coronavirus screen: At this time, the client does not indicate any symptoms associated with coronavirus-19. Ebola Screen: No symptoms or risks identified at this time. Initial Sepsis Screen: Does the patient meet any 2 criteria? No. Patient's initial sepsis screen is negative. Does the patient have a suspected source of infection? No. Patient's initial sepsis screen is negative. Risk Assessment: Do you want to hurt yourself or someone else? Patient reports no desire to harm self or others. Onset of symptoms was July 15, 2023. 19:02 Method Of Arrival: EMS: [facility] kc6 19:02 Acuity: KEN 3 kc6 Historical: - Allergies: 19:03 Unable to obtain; kc6 - PMHx: 19:03 Diabetes - NIDDM; Hypertension; Kidney stones; kc6 - PSHx: 19:03 Lithotripsy; Stented artery; kc6 - Immunization history:: Adult Immunizations unknown. - Social history:: Smoking status: unknown. Screenin:05 [facility] ED Fall Risk Assessment (Adult) History of falling in the last 3 months, kc6 including since admission No falls in past 3 months (0 pts) Confusion or Disorientation No (0 pts) Intoxicated or Sedated No (0 pts) Impaired Gait No (0 pts) Mobility Assist Device Used No (0 pt) Altered Elimination No (0 pt) Score/Fall Risk Level 0 - 2 = Low Risk. Abuse screen: Denies threats or abuse. Denies injuries from another. Nutritional screening: No deficits noted. Tuberculosis screening: No symptoms or risk factors identified. Assessment: 19:28 General: Appears uncomfortable, Behavior is calm, cooperative. Pain: Complains of pain ha1 in chest Pain radiates to left arm Pain currently is 10 out of 10 on a pain scale. Quality of pain is described as pressure, throbbing, Pain began gradually. Neuro: Level of Consciousness is awake, alert, obeys commands, Oriented to person, place, time, situation. Cardiovascular: Capillary refill < 3 seconds Patient's skin is warm and dry. Cardiovascular: Heart tones S1 S2 present. Respiratory: Airway is patent Respiratory effort is even, unlabored, Respiratory pattern is regular, symmetrical. GI: No signs and/or symptoms were reported involving the gastrointestinal system. : No signs and/or symptoms were reported regarding the genitourinary system. Derm: Skin is fragile, is thin, Skin is pink, warm \T\ dry. Musculoskeletal: Circulation, motion, and sensation intact. 20:04 Reassessment: Patient and/or family updated on plan of care and expected duration. Pain ha1 level reassessed. Patient is alert, oriented x 3, equal unlabored respirations, skin warm/dry/pink. Patient denies pain at this time. Patient states feeling better. Patient states symptoms have improved. 20:38 Reassessment: Patient and/or family updated on plan of care and expected duration. Pain ha1 level reassessed. Patient is alert, oriented x 3, equal unlabored respirations, skin warm/dry/pink. Vital Signs: 19:02 BP 183 / 79; Pulse 69; Resp 14 S; Pulse Ox 99% on R/A; kc6 19:07 Weight 78 kg (M); kc6 19:28 BP 153 / 67; Pulse 64; Resp 18 S; Temp 98.1; Pulse Ox 100% on R/A; ha1 20:04 BP 134 / 64; Pulse 62; Resp 20 S; Pulse Ox 100% on R/A; ha1 20:38 BP 119 / 54; Pulse 57; Resp 17 S; Pulse Ox 100% on R/A; ha1 21:00 BP 138 / 63; Pulse 59; Resp 15 S; Pulse Ox 100% on R/A; ha1 21:35 BP 159 / 65; Pulse 68; Resp 17 S; Pulse Ox 100% on R/A; ha1 ED Course: 18:59 Patient arrived in ED. ll1 19:03 Triage completed. kc6 19:03 Arm band placed on. kc6 19:04 Maintain EMS IV. Dressing intact. Good blood return noted. Site clean \T\ dry. Gauge \T\ veena 6 site: 20G RW. Patient maintains SpO2 saturation greater than 95% on room air. 19:05 Patient has correct armband on for positive identification. Bed in low position. Call kc6 light in reach. Side rails up X2. Client placed on continuous cardiac and pulse oximetry monitoring. NIBP monitoring applied. metal weather stripper on. 19:05 Report given to Radha Dorantes RN. kc6 19:06 Kyree Villatoro PA is PHCP. cp 19:06 Kyree Cox MD is Attending Physician. cp 19:19 Radha Dorantes RN is Primary Nurse. ha1 19:19 Influenza Screen (a \T\ B) Sent. ha1 19:19 COVID-19 SARS RT PCR Sent. ha1 19:19 CBC with Diff Sent. ha1 19:19 Magnesium Sent. ha1 19:19 NT PRO-BNP Sent. ha1 19:19 PT-INR Sent. ha1 19:19 Troponin HS Sent. ha1 19:45 XRAY Chest (1 view) In Process Unspecified. EDMS 21:02 CMP Sent. ha1 21:02 LAB Add On Sent. ha1 21:58 Thorax Wo Con In Process Unspecified. EDMS 22:54 Sanchez Russell MD is Hospitalizing Provider. cp Administered Medications: 19:27 Drug: Nitroglycerin Sublingual 0.4 mg Sublingual once Route: Sublingual; ha1 20:05 Follow up: Response: No adverse reaction; Pain is decreased ha1 19:27 Drug: Aspirin PO Chewable Tablet 324 mg PO once; 81 mg tablets x 4 Route: PO; ha1 20:04 Follow up: Response: No adverse reaction; Pain is decreased ha1 21:39 Drug: DuoNeb Nebulize (2.5 mg - 0.5 mg) 3 ml Nebulizer once Route: Nebulizer; ha1 21:39 Drug: MethylPrednisoLONE IVP 80 mg IVP once Route: IVP; Site: right forearm; ha1 22:15 Drug: NS 0.9% IV 500 ml IV at 125 ml/hr continuous Route: IV; Rate: 125 ml/hr; Site: ha1 right forearm; 22:15 Drug: Ativan IVP 0.5 mg IVP once Route: IVP; Site: right forearm; ha1 23:00 Follow up: Response: No adverse reaction; Anxiety decreased ha1 Outcome: 22:55 Decision to Hospitalize by Provider. mohamud 07/16 12:51 Patient left the ED. ld1 Signatures: Dispatcher [employer] EDMS Kyree Villatoro PA PA cp Lewis, Lynsay RN RN ll1 Paris Riley RN RN ld1 Radha Dorantes RN RN ha1 Lacie Knott RN RN kc6
--- NOTE | 2023-07-15 22:56 | EDPHYS ---
Physician Documentation [facility] Name: Yeyo Pelayo Age: 82 yrs Sex: Male : 1940 Arrival Date: 07/15/2023 Time: 18:50 Bed 18 Private MD: ED Physician Kyree Cox HPI: 07/15 19:15 This 82 yrs old Male presents to ER via EMS with complaints of Chest Pain, Shortness Of cp Breath. 19:15 The patient or guardian reports chest pain that is located primarily in the anterior cp chest wall, left. Onset: just prior to arrival. 19:15 The pain radiates to the left arm. Associated signs and symptoms: Pertinent positives: cp shortness of breath, Pertinent negatives: abdominal pain, diaphoresis, palpitations, syncope. 19:15 The chest pain is described as a pressure. cp 19:15 Duration: The patient or guardian reports a single episode, that is still ongoing, and cp worsening. Historical: - Allergies: 19:03 Unable to obtain; kc6 - PMHx: 19:03 Diabetes - NIDDM; Hypertension; Kidney stones; kc6 - PSHx: 19:03 Lithotripsy; Stented artery; kc6 - Immunization history:: Adult Immunizations unknown. - Social history:: Smoking status: unknown. ROS: 19:20 Cardiovascular: Positive for chest pain, of the left side of chest, Negative for edema, cp palpitations, 19:20 Respiratory: Positive for shortness of breath, at rest. cp 19:20 Abdomen/GI: Negative for abdominal pain, vomiting, diarrhea, constipation, 19:20 Eyes: Negative for injury, pain, redness, and discharge, cp 19:20 Constitutional: Negative for body aches, chills, fever, poor PO intake, 19:20 ENT: Negative for drainage from ear(s), ear pain, sore throat, difficulty swallowing, difficulty handling secretions, 19:20 Neuro: Negative for altered mental status, dizziness, headache, syncope, weakness, 19:20 All other systems are negative, Exam: 19:16 ECG was reviewed by the Attending Physician. cp 19:25 Constitutional: The patient appears in no acute distress, alert, awake, cp non-diaphoretic, non-toxic, well developed, well nourished, uncomfortable, 19:25 Head/Face: Normocephalic, atraumatic. cp 19:25 Eyes: Periorbital structures: appear normal, Conjunctiva: normal, no exudate, no injection, Sclera: no appreciated abnormality, Lids and lashes: appear normal, bilaterally, 19:25 ENT: External ear(s): are unremarkable, Nose: is normal, Mouth: Lips: moist, Oral mucosa: pink and intact, moist, Posterior pharynx: is normal, airway is patent, no erythema, no exudate, 19:25 Neck: ROM/movement: is normal, is supple, without pain, no range of motions limitations, 19:25 Chest/axilla: Inspection: normal, Palpation: is normal, no crepitus, no tenderness, 19:25 Cardiovascular: Rate: normal, Rhythm: regular, Edema: is not appreciated, JVD: is not appreciated, 19:25 Respiratory: the patient does not display signs of respiratory distress, Respirations: labored breathing, that is mild, Breath sounds: decreased breath sounds, that are mild, stridor, is not appreciated, wheezing: that is mild, is heard diffusely, 19:25 Abdomen/GI: Inspection: abdomen appears normal, Palpation: abdomen is soft and non-tender, in all quadrants, Vital Signs: 19:02 BP 183 / 79; Pulse 69; Resp 14 S; Pulse Ox 99% on R/A; kc6 19:07 Weight 78 kg (M); kc6 19:28 BP 153 / 67; Pulse 64; Resp 18 S; Temp 98.1; Pulse Ox 100% on R/A; ha1 20:04 BP 134 / 64; Pulse 62; Resp 20 S; Pulse Ox 100% on R/A; ha1 20:38 BP 119 / 54; Pulse 57; Resp 17 S; Pulse Ox 100% on R/A; ha1 21:00 BP 138 / 63; Pulse 59; Resp 15 S; Pulse Ox 100% on R/A; ha1 21:35 BP 159 / 65; Pulse 68; Resp 17 S; Pulse Ox 100% on R/A; ha1 MDM: 19:06 Patient medically screened. cp 22:45 Data reviewed: vital signs, nurses notes. cp 22:45 Differential diagnosis: acute myocardial infarction, pericarditis, pleurisy, pneumonia, cp pneumothorax, pulmonary embolus, stable angina, thoracic aortic disection, unstable angina. The patient was given aspirin in the Emergency Department. Consideration of Admission/Observation Patient was admitted/placed on observation. I considered the following discharge prescriptions or medication management in the emergency department Medications were administered in the Emergency Department. See MAR pain relieved after sublingual nitro. Counseling: I had a detailed discussion with the patient and/or guardian regarding the historical points, exam findings, and any diagnostic results supporting the discharge/admit diagnosis, lab results, radiology results, the need for further work-up and treatment in the hospital. 22:45 Management of patient was discussed with the following: Hospitalist: DR Yvonne fletcher admit after discussion. 07/15 19:10 Order name: CBC with Diff; Complete Time: 20:03 07/15 20:03 Interpretation: Normal except: RBC 4.02; HGB 12.8; HCT 37.7; MPV 7.0. 07/15 19:10 Order name: Magnesium; Complete Time: 20:51 07/15 20:51 Interpretation: Abnormal: MG 2.8. 07/15 19:10 Order name: NT PRO-BNP; Complete Time: 20:51 07/15 19:10 Order name: PT-INR; Complete Time: 20:51 07/15 19:10 Order name: Troponin HS; Complete Time: 20:51 07/15 20:51 Interpretation: Reviewed. 07/15 19:10 Order name: COVID-19 SARS RT PCR; Complete Time: 20:03 07/15 19:10 Order name: Influenza Screen (a \T\ B); Complete Time: 20:03 07/15 19:10 Order name: Urinalysis W/Microscopic 07/15 20:54 Order name: CMP; Complete Time: 21:57 07/15 21:58 Interpretation: Normal except: GLUC 66; BUN 44; CRE 1.70; GFR 40; CA 8.3; ALB 3.0; GLOB cp 3.8; A/G 0.8. 07/15 20:54 Order name: LAB Add On 07/15 23:08 Order name: Basic Metabolic Panel EDMS 07/15 23:08 Order name: Basic Metabolic Panel EDMS 07/15 23:08 Order name: CBC with Automated Diff EDMS 07/15 23:08 Order name: CBC with Automated Diff EDMS 07/15 23:08 Order name: Lipid Profile [facility] 07/15 23:08 Order name: Lipid Profile [facility] 07/15 23:09 Order name: Urine Culture [facility] 07/15 23:20 Order name: Troponin High Sensitivity [facility] 07/15 23:20 Order name: Troponin High Sensitivity [facility] 07/15 23:20 Order name: Troponin High Sensitivity [facility] 07/16 05:15 Order name: Manual Differential [facility] 07/15 19:10 Order name: XRAY Chest (1 view); Complete Time: 20:51 07/15 21:50 Order name: Thorax Wo Con; Complete Time: 22:43 EDUT 07/15 19:10 Order name: EKG; Complete Time: 19:11 07/15 19:10 Order name: Cardiac monitoring; Complete Time: 19:14 07/15 19:10 Order name: EKG - Nurse/Tech; Complete Time: 19:14 07/15 19:10 Order name: IV Saline Lock; Complete Time: 19:14 07/15 19:10 Order name: Labs collected and sent; Complete Time: 19:19 07/15 19:10 Order name: O2 Per Protocol; Complete Time: 19:19 07/15 19:10 Order name: O2 Sat Monitoring; Complete Time: 19:19 07/15 19:29 Order name: Misc. Order: RECOLLECT GREEN AND BLUE TOP PLEASE; Complete Time: 20:05 rv1 EC:16 Rate is 66 beats/min. Rhythm is regular. [place] interval is prolonged at 222 msec. QRS cp interval is prolonged at 136 msec. QT interval is normal. T waves are Inverted in lead aVR. Interpreted by me. Reviewed by me. Administered Medications: 19:27 Drug: Nitroglycerin Sublingual 0.4 mg Sublingual once Route: Sublingual; ha1 20:05 Follow up: Response: No adverse reaction; Pain is decreased ha1 19:27 Drug: Aspirin PO Chewable Tablet 324 mg PO once; 81 mg tablets x 4 Route: PO; ha1 20:04 Follow up: Response: No adverse reaction; Pain is decreased ha1 21:39 Drug: DuoNeb Nebulize (2.5 mg - 0.5 mg) 3 ml Nebulizer once Route: Nebulizer; ha1 21:39 Drug: MethylPrednisoLONE IVP 80 mg IVP once Route: IVP; Site: right forearm; ha1 22:15 Drug: NS 0.9% IV 500 ml IV at 125 ml/hr continuous Route: IV; Rate: 125 ml/hr; Site: ha1 right forearm; 22:15 Drug: Ativan IVP 0.5 mg IVP once Route: IVP; Site: right forearm; ha1 23:00 Follow up: Response: No adverse reaction; Anxiety decreased ha1 Disposition Summary: 07/15/23 22:55 Hospitalization Ordered Notes: Hospitalization Status: Observation cp Provider: Sanchez Russell cp Condition: Stable cp Problem: new cp Symptoms: have improved cp Bed/Room Type: Standard cp Location: [facility] HOLD(07/16/23 04:07) lg3 Room Assignment: ERHOLD-(07/16/23 04:07) lg3 Diagnosis - Chest pain, unspecified cp - COPD/ Chronic obstructive pulmonary disease with (acute) exacerbation cp Forms: - Medication Reconciliation Form cp - SBAR form cp - Leadership Thank You Letter cp Signatures: Dispatcher [employer] EDUT Kyree Villatoro PA PA cp Gibson, Lacie RN RN 3 Radha Dorantes RN RN ha1 Lacie Knott RN RN 6 April Blankenship rv1 Corrections: (The following items were deleted from the chart) 21:50 20:05 Angio Aorta For Dissection+CT.RAD.BRZ ordered. [facility] 07/16 04:07 07/15 22:55 Telemetry/MedSurg (observation) [facility] 07/16 04:07 07/15 22:55 [facility] 07/17 02:00 07/15 22:45 Management of patient was discussed with the following: Hospitalist: DR mohamud Russell will admit after discussion. cp
[2023-07-15] MEDS ORDERED: ACETAMINOPHEN 650MG/RECT SUPP PR PRN (23:00)
[2023-07-15] MEDS ORDERED: ONDANSETRON 4 MG/2 ML VIAL IV PRN (23:00)
--- NOTE | 2023-07-15 23:19 | P.HP ---
Certification for Inpatient Patient admitted to: Observation With expected LOS: <2 Midnights Practitioner: I am a practitioner with admitting privileges, knowledge of patient current condition, hospital course, and medical plan of care. Services: Services provided to patient in accordance with Admission requirements found in Title 42 Section 412.3 of the Code of Federal Regulations Patient History Date of Service: 07/16/23 Reason for admission: Chest pain. History of Present Illness: 82-year-old male patient was medically significant for hypertension, hyperlipidemia, history of CKD stage III, history of gout and who recently was diagnosed with significant coronary artery disease requiring bypass graft surgery who refused surgery who came to the ED with complaint of chest pain. He had a chest pain in the past and was worked up with left heart cath on his last visit and was found to have significant stenosis in multiple coronary arteries. He was offered coronary artery bypass graft surgery but patient refused procedure stating mosque believes of not wanting to get a blood transfusion. He came back to the ED with complaint of chest discomfort and initial troponin were negative. He was admitted for hospitalization for management of chest pain. On further review patient stated further that he is not wanting to proceed with bypass graft surgery secondary to mosque believes and he did mention that he was particularly waiting to pass away. He had issues with anxiety on his last visit and was prescribed SSRI for management of panic attacks. No episode of cough, fever, chills, rigor, nausea, vomiting on this visit. Allergies No Known Drug Allergies Allergy (Verified 08/18/16 02:20) Unknown Home Medications: Glimepiride 4 mg PO BID 30 Days #60 tab 08/07/21 Metoprolol Tartrate [Lopressor*] 25 mg PO BID 6AM 6PM 30 Days #60 tab 08/07/21 Melatonin 10 mg PO BEDTIME PRN PRN #30 07/07/23 Aspirin [Aspirin EC 81 MG] 81 mg PO DAILY #30 07/09/23 Fluoxetine HCl [Prozac*] 10 mg PO DAILY 30 Days #30 cap 07/09/23 - Past Medical/Surgical History Diabetic: Yes -: Hypertension -: Type 2 diabetes -: Nephrolithiasis -: CKD 3 -: urethral stent placement -: cystoscopy -: hernia repair Psychosocial/ Personal History: Retired, lives at home with his - Family History Mother Notes: alzheimers Father -: Cancer Notes: colon - Social History Alcohol use: No CD- Drugs: No Caffeine use: No Review of Systems General: Unremarkable Eyes: Unremarkable ENT: Unremarkable Respiratory: Unremarkable Cardiovascular: Chest Pain Gastrointestinal: Unremarkable Genitourinary: Unremarkable Musculoskeletal: Unremarkable Neurological: Unremarkable Physical Examination - Physical Exam General: Alert, Oriented x3 HEENT: Atraumatic Neck: Supple Respiratory: Normal air movement Cardiovascular: Regular rate/rhythm, Normal S1 S2 Gastrointestinal: Soft and benign Musculoskeletal: No swelling Neurological: Normal speech, Normal strength at 5/5 x4 extr - Studies Laboratory Data (last 24 hrs) 07/15/23 07/15/23 07/15/23 20:06 20:06 20:06 WBC Hgb Hct Plt Count PT 12.5 INR 1.14 Sodium 137 Potassium 4.2 BUN 44 H Creatinine 1.70 H Glucose 66 L Magnesium 2.8 H Total Bilirubin 0.3 AST 18 ALT 32 Alkaline Phosphatase 70 07/15/23 19:15 WBC 7.90 Hgb 12.8 L Hct 37.7 L Plt Count 284 PT INR Sodium Potassium BUN Creatinine Glucose Magnesium Total Bilirubin AST ALT Alkaline Phosphatase Microbiology Data (last 24 hrs): 07/15/23 19:15 Nasopharnyx Influenza Type A Antigen Screen - Final 07/15/23 19:15 Nasopharnyx Influenza Type B Antigen Screen - Final Assessment and Plan - Plan Chest pain: Concerning for ACS. He recently had left heart cath with significant stenosis of multiple vessels. Patient refused bypass graft surgery offer. Procurement Forester to be consulted for management recommendation Aspirin therapy to be continued. History of hypertension: Will continue antibiotics medication as prescribed by patient and monitor vital signs per unit protocol History of gout: No active issue at this time. As needed colchicine to be used. Pain control with as needed morphine to be continued. Hyperlipidemia: Will continue statin therapy Anxiety disorder: Will continue SSRI fluoxetine CKD: Stable creatinine. Will monitor renal labs Prophylaxis: Lovenox for DVT prophylaxis CODE STATUS: Full code Disposition: Will continue to monitor for possibility of bypass graft surgery and cardiology to evaluate for management recommendation of his chest pain. - Advance Directives Does patient have a Living Will: No Does patient have a Durable POA for Healthcare: No
[2023-07-16 01:45] VITALS: BMI 23.8
[2023-07-16 03:17] LABS: Absolute Lymphocytes (CBC) 0.3 K/uL (0.7-4.9); Hematocrit 37.2 % (39.6-49.0); Lymphocytes % 3.9 % (15.3-44.8); MCV 94.3 fL (80-100); MPV 7.1 fL (7.6-11.3); Platelets 261 thou/uL (152-406); RBC Red Blood Cell Count 3.94 M/uL (4.33-5.43)
[2023-07-16 03:32] LABS: Potassium 4.3 mEq/L (3.5-5.1); Troponin High Sensitivity 6.6 pg/mL (<58.9)
[2023-07-16] MEDS ORDERED: MORPHINE 2 MG/ML SYR IV ONE (04:22)
[2023-07-16] MEDS ORDERED: MORPHINE 2 MG/ML SYR ONE (04:42)
[2023-07-16 05:15] LABS: Blood Morphology Comment NOT SEEN (NOT SEEN); Platelet Estimate ADEQ
[2023-07-16] MEDS ORDERED: COLCHICINE 0.6 MG TAB PO PRN (05:21)
[2023-07-16] MEDS ORDERED: ENOXAPARIN 40 MG/0.4 ML SQ ONE (08:48)
[2023-07-16] MEDS ORDERED: ASPIRIN EC 81 MG TAB PO ONE (08:48)
[2023-07-16] MEDS ORDERED: FLUOXETINE 10 MG CAP PO SCH (09:00)
[2023-07-16] MEDS ORDERED: ENOXAPARIN 40 MG/0.4 ML SQ SCH (09:00)
[2023-07-16] MEDS ORDERED: ASPIRIN EC 81 MG TAB PO SCH (09:00)
[2023-07-16] MEDS ORDERED: INFLUENZA VACCINE (for 6+ mo) 0.5 ML DOSE IMVAC ONE (12:00)
--- NOTE | 2023-07-16 12:43 | P.DS ---
Admission Date: 07/15/23 Discharge Date: 07/16/23 Disposition: ROUTINE DISCHARGE Discharge Condition: FAIR Reason for Admission: Chest pain. - Problems (1) Coronary artery disease Current Visit: Yes Status: Acute (2) Musculoskeletal pain Current Visit: Yes Status: Acute (3) Chest pain, rule out acute myocardial infarction Current Visit: No Status: Acute (4) CKD (chronic kidney disease) Current Visit: No Status: Chronic Qualifiers: Chronic kidney disease stage: stage 3 (moderate) Chronic kidney disease stage 3 subtype: stage 3a (GFR 45-59) Qualified Code(s): N18.31 - Chronic kidney disease, stage 3a (5) DM2 (diabetes mellitus, type 2) Onset Date: 07/17/14 Current Visit: No Status: Chronic Qualifiers: Diabetes mellitus roasterman insulin use: without intermediate use Diabetes mellitus complication status: without complication Qualified Code(s): E11.9 - Type 2 diabetes mellitus without complications Brief History of Present Illness: 82-year-old male patient was medically significant for hypertension, hyperlipidemia, history of CKD stage III, history of gout and who recently was diagnosed with significant coronary artery disease requiring bypass graft surger but patient refused surgery. He came to the ED with complaint of chest pain. He had a chest pain in the past and was worked up with left heart cath on his last visit and was found to have significant stenosis in multiple coronary arteries. He was offered coronary artery bypass graft surgery but patient refused procedure stating roman catholic believes of not wanting to get a blood transfusion. Initial troponin were negative. He was admitted for hospitalization for management of chest pain. He had issues with anxiety on his last visit and was prescribed SSRI for management of panic attacks. Patient hospitalized for further evaluation and management. Hospital Course: Patient was placed under observation on the medical floor. Troponin trended negative. Patient was complaining of pain in the left back-paraspinal area between the shoulder blades which was reproducible by palpation. Patient's chest pain likely musculoskeletal. He does have significant coronary artery disease which patient opted for any medical treatment. ACS ruled out. Patient seen by cardiology Dr. Osei who recommend medical management per patient preference. Patient is discharged with sublingual nitroglycerin as needed for angina. He is also prescribed statins and Plavix to optimize CAD treatment. Continued metoprolol and aspirin. Decreased glimepiride from 4 mg twice a day to 4 mg daily given borderline hypoglycemia noted on presentation. Vital Signs/Physical Exam: Temp Pulse Resp BP Pulse Ox 98.5 F 109 H 17 158/94 H 94 07/16/23 12:00 07/16/23 12:00 07/16/23 12:00 07/16/23 12:00 07/16/23 12:00 General: Alert, In no apparent distress, Oriented x3 Neck: JVD not distended Respiratory: Clear to auscultation bilaterally, Normal air movement Cardiovascular: No edema, Regular rate/rhythm, Normal S1 S2 Gastrointestinal: Soft and benign, Non-distended Musculoskeletal: Tenderness (Left upper back-between shoulder blades.) Integumentary: No rashes, No cyanosis Neurological: Normal strength at 5/5 x4 extr Laboratory Data at Discharge: WBC 7.90 thou/uL (4.3-10.9) 07/16/23 02:52 Hgb 12.6 g/dL (13.6-17.9) L 07/16/23 02:52 Hct 37.2 % (39.6-49.0) L 07/16/23 02:52 Plt Count 261 thou/uL (152-406) 07/16/23 02:52 PT 12.5 SECONDS (9.5-12.5) 07/15/23 20:06 INR 1.14 07/15/23 20:06 Sodium 138 mEq/L (136-145) 07/16/23 02:52 Potassium 4.3 mEq/L (3.5-5.1) 07/16/23 02:52 BUN 38 mg/dL (7-18) H 07/16/23 02:52 Creatinine 1.50 mg/dL (0.70-1.30) H 07/16/23 02:52 Glucose 147 mg/dL (74-106) H 07/16/23 02:52 Magnesium 2.8 mg/dL (1.6-2.4) H 07/15/23 20:06 Total Bilirubin 0.3 mg/dL (0.2-1.0) 07/15/23 20:06 AST 18 U/L (15-37) 07/15/23 20:06 ALT 32 U/L (16-61) 07/15/23 20:06 Alkaline Phosphatase 70 U/L (45-117) 07/15/23 20:06 Triglycerides 45 mg/dL (<150) 07/16/23 02:52 Cholesterol 122 mg/dL (<200) 07/16/23 02:52 HDL Cholesterol 34 mg/dL (40-60) L 07/16/23 02:52 Cholesterol/HDL Ratio 3.59 07/16/23 02:52 Home Medications: Metoprolol Tartrate [Lopressor*] 25 mg PO BID 6AM 6PM 30 Days #60 tab 08/07/21 Melatonin 10 mg PO BEDTIME PRN PRN #30 07/07/23 Aspirin [Aspirin EC 81 MG] 81 mg PO DAILY #30 07/09/23 Fluoxetine HCl [Prozac*] 10 mg PO DAILY 30 Days #30 cap 07/09/23 Atorvastatin Calcium [Lipitor] 20 mg PO BEDTIME #30 tab 07/16/23 Glimepiride 4 mg PO DAILY 30 Days #30 tab 07/16/23 Nitroglycerin [Nitrostat] 0.4 mg SL PRN #15 tab 07/16/23 traMADol HCL [Ultram*] 50 mg PO Q6H PRN #15 tab 07/16/23 New Medications: Glimepiride 4 mg PO DAILY 30 Days #30 tab Atorvastatin Calcium [Lipitor] 20 mg PO BEDTIME #30 tab Nitroglycerin [Nitrostat] 0.4 mg SL PRN #15 tab traMADol HCL [Ultram*] 50 mg PO Q6H PRN #15 tab PRN Reason: Pain Diet: ADA Activity: Ad vicki Followup: NONE,NONE [Primary Care Provider] - 1-2 Weeks Time spent managing pt's care (in minutes): 25
[2023-07-16 13:17] VITALS: TEMP 98.1; O2SAT 100
[2023-07-16 13:24] VITALS: BP 159/65
--- NOTE | 2023-07-16 15:13 | EKG ---
Test Date: 2023-07-15 Test Time: 19:08:59 Manufacturing Technology Professor: MESSI MEASUREMENT RESULTS: Intervals: Rate: 66 MO: 222 QRSD: 136 QT: 436 QTc: 457 [place]: P: 66 MO: 222 QRS: 75 T: 51 INTERPRETIVE STATEMENTS: Sinus rhythm with 1st degree AV block Right bundle branch block Abnormal ECG Compared to ECG 07/13/2023 10:49:05 Sinus bradycardia no longer present Electronically Signed On 07-16-23 15:10:44 PROJECT ESTIMATOR by Josh Osei
== END 2023-07-16 12:39 | disposition home or self-care (01) ==
LOC: ER 18:50 → ERHOLD 23:00
PROVIDERS: ADMIT Internal Medicine Nephrology; ATTEND Internal Medicine
DX: R07.9 Chest pain, unspecified (principal); M79.18 Myalgia, other site; I25.10 Atherosclerotic heart disease of native coronary artery without angina pectoris; J44.1 Chronic obstructive pulmonary disease with (acute) exacerbation; I10 Essential (primary) hypertension; E78.5 Hyperlipidemia, unspecified; N18.31 Chronic kidney disease, stage 3a; F41.9 Anxiety disorder, unspecified; E11.9 Type 2 diabetes mellitus without complications; Z11.52 Encounter for screening for COVID-19; Z23 Encounter for immunization
CPT/HCPCS: 93005; 87088; 85025 ×2; 81001; 87086; 80048; 36415; 83735; 85610; 80061; 84484 ×2; 80053; 83880; 87635; 87804 ×2; 71250; 71045; 94640; 96375; 96374; 99285; J7613; J7644; J1650; J2270; J7040; J2920; G0378 ×2

== ENCOUNTER 2023-10-12 17:05 | Inpatient (IN) | payer OTHER ==
--- OUTSIDE RECORDS SUMMARY | 2023-10-12 17:07 | XMS REPORT | Continuity of Care Document ---
Author Name Unknown Address [address] [facility] [address] [place] [address] [facility] Address [address] [facility] [address] [place] [address] Care Team Providers Care Clothing Supervisor Name Role Phone Lalo Munroe Attending Clinician Unavailable Problems Condition Name Condition Details Condition Category Status Onset Date Resolution Date Last Treatment Date Treating Clinician Comments Source [id number] Microscopi c hematuria Problem [facility] History of nephrolith iasis History of nephrolith iasis Problem [facility] Left flank pain Left flank pain Problem [facility] 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 Ordering Clinician Indication Dosage Frequency Signature (SIG) Comments Components Source Amoxicillin 500 MG Amoxicillin 500 MG 01-14 00:00: 00 No 1{capsu le} TID Amoxicilli n 500 MG Amoxicillin 500 MG Amoxicillin 500 MG 01-14 00:00: 00 No 1{capsu le} TID Amoxicilli n 500 MG Metoprolol Succinate 25 MG Metoprolol Succinate 25 MG No 1{capsu le} QD Metoprolol Succinate 25 MG Glimepiride 4 MG Glimepiride 4 MG No 1{table t_with_ breakfa st_or_t he_firs t_main_ meal_of _the_da y} QD Glimepirid e 4 MG Metoprolol Succinate 25 MG Metoprolol Succinate 25 MG No 1{capsu le} QD Metoprolol Succinate 25 MG Glimepiride 4 MG Glimepiride 4 MG No 1{table t_with_ breakfa st_or_t he_firs t_main_ meal_of _the_da y} QD Glimepirid e 4 MG Vital Signs Vital Name Observation Time Observation Value Comments S ource height 2023-01-08 15:15:00 72 [in_i] Commo n [facility] weight 2023-01-08 15:15:00 160.8 [lb_av] Co mmon [facility] temperature 2023-01-08 15:15:00 97.9 [degF] Com mon [facility] bmi 2023-01-08 15:15:00 21.81 kg/m2 Comm on [facility] oximetry 2023-01-08 15:15:00 99 % Commo n [facility] respiratory rate 2023-01-08 15:15:00 18 /min [facility] blood pressure systolic 2023-01-08 15:15:00 199 mm[Hg] [facility] blood pressure diastolic 2023-01-08 15:15:00 86 mm[Hg] [facility] Encounters Start Date/Time End Date/Time Encounter Type Admission Type Attending Clinicians Care Facility Care Department Encounter ID Source 2023-01-08 13:53:03 Outpatient Leyla Munroeanh [facility] [id number] [facility] 2023-01-14 00:00:00 2023-01-14 00:00:00 (TEL) [facility] [id number] [facility] 2023-01-08 00:00:00 2023-01-08 00:00:00 OFFICE VISIT NEW PT LEVEL 3 [facility] [id number] [facility]
[2023-10-12 17:49] LABS: Hematocrit 37.1 % (39.6-49.0); Lymphocytes % 12.2 % (15.3-44.8); MCV 95.3 fL (80-100); MPV 7.9 fL (7.6-11.3); Platelets 159 thou/uL (152-406); RBC Red Blood Cell Count 3.89 M/uL (4.33-5.43)
[2023-10-12 17:51] LABS: Protime INR 1.16
[2023-10-12] MEDS ORDERED: TAMSULOSIN 0.4 MG SR CAP ONE (17:55)
[2023-10-12 18:10] LABS: Potassium 3.8 mEq/L (3.5-5.1); Troponin High Sensitivity 8.4 pg/mL (<58.9)
--- NOTE | 2023-10-12 18:19 | RAD REPORT ---
EXAM DESCRIPTION: CT - Stone Protocol - 10/12/2023 5:56 pm CLINICAL HISTORY: Abdominal pain. Flank pain COMPARISON: 2022 TECHNIQUE: Computed axial tomography of the abdomen pelvis was obtained without oral or IV contrast. Lack of IV and oral contrast limits evaluation of solid organs, appendix, bowel, and vessels. Chaudhary l reformatted images were obtained and reviewed. All CT scans are performed using dose optimization technique as appropriate and may include automated exposure control or mA/KV adjustment according to patient size. FINDINGS: A renal calculus is not seen. An ureteral calculus is not noted. A bladder calculus is not present. No hydronephrosis Multiple gallstones. Gallbladder wall not thickened The liver, spleen, pancreas and adrenals appear grossly normal There is no evidence of diverticulitis. Small to moderate left inguinal hernia IMPRESSION: Negative for a genitourinary calculus Cholelithiasis without evidence cholecystitis
[2023-10-12 18:27] LABS: Magnesium 2.4 mg/dL (1.6-2.4)
--- NOTE | 2023-10-12 18:52 | RAD REPORT ---
EXAM DESCRIPTION: Ruchi Single View10/12/2023 5:33 pm CLINICAL HISTORY: Chest pain COMPARISON: 2022 FINDINGS: The lungs appear clear of acute infiltrate. The heart is normal size IMPRESSION: No acute abnormalities displayed
[2023-10-12 18:54] LABS: Specific Gravity 1.008 (1.005-1.030); Urine Bacteria <20 /HPF (<20); Urine Bilirubin NEGATIVE (Negative); Urine Blood 1+ (Negative); Urine Clarity Extremely Turbid (Clear); Urine Color Light-Yellow (Yellow); Urine Glucose NEGATIVE (Negative); Urine Mucus 1+ /HPF (None Seen); Urine Protein NEGATIVE (Negative); Urine RBC <5 /HPF (None Seen); Urine Urobilinogen Normal (Normal); Urine WBC Clump Occasional /HPF (None Seen)
[2023-10-12] MEDS ORDERED: NA CHLORIDE 0.9% 50 ML ONE (19:13)
[2023-10-12] MEDS ORDERED: CEFTRIAXONE 1000 MG/VIAL ONE (19:13)
--- NOTE | 2023-10-12 19:17 | EDPHYS ---
Physician Documentation [facility] Name: Yeyo Pelayo Age: 83 yrs Sex: Male : 1940 Arrival Date: 10/12/2023 Time: 17:05 Bed 13 Private MD: ED Physician Kyree Cox HPI: 10/12 19:08 This 83 yrs old Male presents to ER via EMS with complaints of Chest Pain. juana 19:08 The patient or guardian reports chest pain that is located primarily in the substernal juana area, anterior chest wall, left. Onset: just prior to arrival, today. The pain does not radiate. Associated signs and symptoms: The patient has no apparent associated signs or symptoms. The chest pain is described as causing indigestion, a pressure. Modifying factors: The symptoms are alleviated by nothing. the symptoms are aggravated by nothing. Severity of pain: At its worst the pain was mild moderate in the emergency department the pain has improved mildly. The patient has experienced similar episodes in the past, several times. Historical: - Allergies: 18:21 No Known Allergies; ko1 - PMHx: 18:21 Diabetes - NIDDM; Hypertension; Kidney stones; ko1 - PSHx: 18:21 Lithotripsy; Stented artery; ko1 - Immunization history:: Adult Immunizations up to date. - Social history:: Smoking status: Patient denies any tobacco usage or history of. - Family history:: not pertinent. ROS: 19:08 Constitutional: Negative for fever, chills, and weight loss, Eyes: Negative for injury, juana pain, redness, and discharge, ENT: Negative for injury, pain, and discharge, Neck: Negative for injury, pain, and swelling, Respiratory: Negative for shortness of breath, cough, wheezing, and pleuritic chest pain, Abdomen/GI: Negative for abdominal pain, nausea, vomiting, diarrhea, and constipation, Back: Negative for injury and pain, MS/Extremity: Negative for injury and deformity, Skin: Negative for injury, rash, and discoloration, Neuro: Negative for headache, weakness, numbness, tingling, and seizure, Psych: Negative for depression, anxiety, suicide ideation, homicidal ideation, and hallucinations, Allergy/Immunology: Negative for hives, rash, and allergies, Endocrine: Negative for neck swelling, polydipsia, polyuria, polyphagia, and marked weight changes, Hematologic/Lymphatic: Negative for swollen nodes, abnormal bleeding, and unusual bruising, 19:08 Cardiovascular: Positive for chest pain, of the left clavicle and anterior aspect of left upper chest, 19:08 : Positive for urinary frequency, small amounts, difficulty urinating, Exam: 19:08 Constitutional: This is a well developed, well nourished patient who is awake, alert, juana and in no acute distress. Head/Face: Normocephalic, atraumatic. Eyes: Pupils equal round and reactive to light, extra-ocular motions intact. Lids and lashes normal. Conjunctiva and sclera are non-icteric and not injected. Cornea within normal limits. Periorbital areas with no swelling, redness, or edema. ENT: Nares patent. No nasal discharge, no septal abnormalities noted. Tympanic membranes are normal and external auditory canals are clear. Oropharynx with no redness, swelling, or masses, exudates, or evidence of obstruction, uvula midline. Mucous membranes moist. Neck: Trachea midline, no thyromegaly or masses palpated, and no cervical lymphadenopathy. Supple, full range of motion without nuchal rigidity, or vertebral point tenderness. No Meningismus. Chest/axilla: Normal chest wall appearance and motion. Nontender with no deformity. No lesions are appreciated. Cardiovascular: Regular rate and rhythm with a normal S1 and S2. No gallops, murmurs, or rubs. Normal PMI, no JVD. No pulse deficits. Respiratory: Lungs have equal breath sounds bilaterally, clear to auscultation and percussion. No rales, rhonchi or wheezes noted. No increased work of breathing, no retractions or nasal flaring. Abdomen/GI: Soft, non-tender, with normal bowel sounds. No distension or tympany. No guarding or rebound. No evidence of tenderness throughout. Back: No spinal tenderness. No costovertebral tenderness. Full range of motion. Male : Normal genitalia with no discharge or lesions. Skin: Warm, dry with normal turgor. Normal color with no rashes, no lesions, and no evidence of cellulitis. MS/ Extremity: Pulses equal, no cyanosis. Neurovascular intact. Full, normal range of motion. Neuro: Awake and alert, GCS 15, oriented to person, place, time, and situation. Cranial nerves II-XII grossly intact. Motor strength 5/5 in all extremities. Sensory grossly intact. Cerebellar exam normal. Normal gait. Psych: Awake, alert, with orientation to person, place and time. Behavior, mood, and affect are within normal limits. 19:08 ECG was reviewed by the Attending Physician. Vital Signs: 17:30 BP 163 / 68; Pulse 79; Resp 15; Temp 98; Pulse Ox 98% ; ko1 18:51 BP 158 / 84; Pulse 77; Resp 17; Pulse Ox 99% ; ko1 19:05 BP 179 / 130; Pulse 74; Resp 16; Pulse Ox 97% ; jj7 19:49 BP 170 / 74; Pulse 58; Resp 17; Pulse Ox 100% ; Weight 81.65 kg; Pain 0/10; jj7 20:00 BP 178 / 94; Pulse 62; Resp 17; Pulse Ox 100% ; Pain 0/10; jj7 21:00 BP 182 / 70; Pulse 60; Resp 17; Pulse Ox 100% ; Pain 0/10; jj7 22:15 BP 171 / 76; Pulse 82; Resp 18; Pulse Ox 100% ; Pain 0/10; jj7 19:49 Pain Scale: Adult jj7 20:00 Pain Scale: Adult jj7 21:00 Pain Scale: Adult jj7 22:15 Pain Scale: Adult jj7 MDM: 17:16 Patient medically screened. juana 19:12 Differential diagnosis: abnormal EKG, acute myocardial infarction, acute pericarditis, juana anxiety, coronary artery disease chest wall pain, Cholelithiasis costochondritis, gastritis, herpes zoster, hiatal hernia, pancreatitis, pericarditis, pleurisy, pneumonia, pneumothorax, pulmonary embolus, stable angina, thoracic aortic disection, unstable angina. HEART Score: History: Slightly Suspicious (0), ECG: Non specific repolarization disturbance / LBTB / PM (1), Age: > or = 65 years (2), Risk Factors: > or = 3 Risk factors for atherosclerotic disease (2), [Hypercholesterolemia] [Hypertension] [DM] [+ Family HX] Troponin: < or = 1 x Normal Limit (0), Total Score = 5. The patient was given aspirin in the Emergency Department. TRENA Risk Score: 1 - patient's age is greater or equal to 65 years, 1 - Three or more CAD risk factors, 1- Known CAD, 1 - ASA use in past 7 days, TOTAL SCORE = 4. Data reviewed: vital signs, nurses notes, lab test result(s), EKG, radiologic studies, plain films. Consideration of Admission/Observation Patient was admitted/placed on observation. Escalation of care including admission/observation considered. Management of patient was discussed with the following: Hospitalist: DR FARRIS. I considered the following discharge prescriptions or medication management in the emergency department Medications were administered in the Emergency Department. See MAR. Independent interpretation of the following test(s) in the Emergency Department EKG: See my EKG interpretation above. Test considered but Not performed: CT: NO CT CHEST RO PE. Historians other than the Patient: PT WELL INFORMED. Care significantly affected by the following chronic conditions: Diabetes, Hypertension, Chronic Kidney Disease. Counseling: I had a detailed discussion with the patient and/or guardian regarding the historical points, exam findings, and any diagnostic results supporting the discharge/admit diagnosis, lab results, radiology results, the need for further work-up and treatment in the hospital. 10/12 17:15 Order name: Basic Metabolic Panel; Complete Time: 18:50 [facility] 10/12 17:15 Order name: CBC with Diff; Complete Time: 18:50 [facility] 10/12 17:15 Order name: Troponin HS; Complete Time: 18:50 [facility] 10/12 17:16 Order name: Magnesium; Complete Time: 18:50 [facility] 10/12 17:16 Order name: NT PRO-BNP; Complete Time: 18:50 [facility] 10/12 17:16 Order name: PT-INR; Complete Time: 18:50 [facility] 10/12 17:35 Order name: Urinalysis w/ reflexes; Complete Time: 19:00 [facility] 10/12 18:58 Order name: Urine Culture [facility] 10/12 20:59 Order name: CBC with Automated Diff [facility] 10/12 20:59 Order name: CBC with Automated Diff [facility] 10/12 20:59 Order name: Comprehensive Metabolic Panel [facility] 10/12 20:59 Order name: Comprehensive Metabolic Panel [facility] 10/12 17:15 Order name: XRAY Chest (1 view); Complete Time: 19:00 [facility] 10/12 17:35 Order name: CT Stone Protocol; Complete Time: 18:50 [facility] 10/12 17:15 Order name: EKG; Complete Time: 17:15 10/12 17:15 Order name: Cardiac monitoring; Complete Time: 17:15 10/12 17:15 Order name: EKG - Nurse/Tech; Complete Time: 17:15 10/12 17:15 Order name: IV Saline Lock; Complete Time: 17:15 10/12 17:15 Order name: Labs collected and sent; Complete Time: 17:39 10/12 17:15 Order name: O2 Per Protocol; Complete Time: 17:15 10/12 17:15 Order name: O2 Sat Monitoring; Complete Time: 17:15 10/12 17:35 Order name: Bladder Scanner: PVR PLEASE; Complete Time: 18:44 juana EC:08 Rate is 66 beats/min. Rhythm is regular. QRS [place] is Normal. MI interval is prolonged juana at 238 msec. QRS interval is normal. QT interval is normal. No Q waves. T waves are Normal. No ST changes noted. Clinical impression: NSR w/ Non-specific ST/T Changes and 1st degree heart block. Interpreted by me. Reviewed by me. Administered Medications: 17:34 Not Given (given by EMS): aspirinchewable tablet 324 mg PO once; 81 mg tablets x 4 ko1 18:13 Drug: Flomax PO 0.4 mg PO once Route: PO; ko1 19:15 Follow up: Response: No adverse reaction jj7 20:09 Drug: Famotidine IVP 20 mg IVP once; dilute with 10 mL 0.9% NaCl; give over 2 minutes jj7 Route: IVP; Site: left forearm; 20:40 Follow up: Response: No adverse reaction jj7 20:10 Drug: Rocephin - Rocephin (cefTRIAXone) IVPB 1 grams IVPB once over 30 mins; (mix in 50 jj7 mL NS) Route: IVPB; Infused Over: 30 mins; Site: left forearm; 20:40 Follow up: IV Status: Completed infusion jj7 20:10 Drug: Enoxaparin Sub-Q 1 mg/kg Sub-Q once Route: Sub-Q; Site: abdomen; jj7 20:40 Follow up: Response: No adverse reaction jj7 Disposition Summary: 10/12/23 19:17 Hospitalization Ordered Notes: Hospitalization Status: Observation juana Provider: Sanchez Russell cha Location: Telemetry/MedSurg (observation) juana Condition: Stable juana Problem: new juana Symptoms: have improved juana Bed/Room Type: [facility] Room Assignment: 405(10/12/23 21:49) jb4 Diagnosis - Chest pain, unspecified juana - Unstable angina juana - Retention of urine, unspecified juana - UTI/ Urinary tract infection, site not specified juana - Chronic kidney disease, stage 3 (moderate) juana - Chronic kidney disease, unspecified juana Forms: - Medication Reconciliation Form juana - SBAR form juana - Leadership Thank You Letter [facility] Signatures: Dispatcher [employer] Kyree Eubanks MD MD cha Calderon, Audri RN RN aa5 Yeyo Jones RN RN jb4 Sarai Tobar RN RN ko1 James Bain RN RN jj7 Corrections: (The following items were deleted from the chart) 18:22 18:21 Allergies: Unable to obtain; ko1 ko1 21:49 19:17 juana jb4
--- NOTE | 2023-10-12 19:17 | ER ---
Nurse's Notes [facility] Name: Yeyo Pealyo Age: 83 yrs Sex: Male : 1940 Arrival Date: 10/12/2023 Time: 17:05 Bed 13 Private MD: Diagnosis: Chest pain, unspecified;Unstable angina;Retention of urine, unspecified;UTI/ Urinary tract infection, site not specified;Chronic kidney disease, stage 3 (moderate);Chronic kidney disease, unspecified Presentation: 10/12 17:30 Chief complaint: EMS states: called due to patient having a funny feeling in his chest ko1 and has not been able to pee in a couple of days. Coronavirus screen: At this time, the client does not indicate any symptoms associated with coronavirus-19. Ebola Screen: No symptoms or risks identified at this time. Initial Sepsis Screen: Does the patient meet any 2 criteria? No. Patient's initial sepsis screen is negative. Does the patient have a suspected source of infection? No. Patient's initial sepsis screen is negative. Risk Assessment: Do you want to hurt yourself or someone else? Patient reports no desire to harm self or others. Onset of symptoms is unknown. Care prior to arrival: IV initiated. 20 GA, in the left forearm. 17:30 Method Of Arrival: EMS: [facility] ko1 17:30 Acuity: KEN 3 ko1 Triage Assessment: 18:21 General: Appears in no apparent distress. Behavior is calm, cooperative, appropriate ko1 for age. Pain: Denies pain. Cardiovascular: Denies chest pain. : Reports inability to void. Historical: - Allergies: 18:21 No Known Allergies; ko1 - PMHx: 18:21 Diabetes - NIDDM; Hypertension; Kidney stones; ko1 - PSHx: 18:21 Lithotripsy; Stented artery; ko1 - Immunization history:: Adult Immunizations up to date. - Social history:: Smoking status: Patient denies any tobacco usage or history of. - Family history:: not pertinent. Screenin:00 [facility] ED Fall Risk Assessment (Adult) History of falling in the last 3 months, ko1 including since admission No falls in past 3 months (0 pts) Confusion or Disorientation No (0 pts) Intoxicated or Sedated No (0 pts) Impaired Gait Yes (1 pt) Mobility Assist Device Used Yes (1 pt) Altered Elimination No (0 pt) Score/Fall Risk Level 0 - 2 = Low Risk Oriented to surroundings, Maintained a safe environment, Educated pt \T\ family on fall prevention, incl call for assistance when getting out of bed, Assessed \T\ reinforced patient's understanding of fall precautions, Provided non-skid footwear, Hourly rounding (assess needs \T\ fall precautionary measures) done, Used ambulatory aids as needed (educated on \T\ assisted with), Used gait belt as appropriate. Abuse screen: Denies threats or abuse. Denies injuries from another. Nutritional screening: No deficits noted. Tuberculosis screening: No symptoms or risk factors identified. Assessment: 18:00 Pain: Pain does not radiate. Pain began gradually. ko1 19:05 Reassessment: Patient is alert, oriented x 3, equal unlabored respirations, skin jj7 warm/dry/pink. ASSUMED CARE OF PT. PT LYING I BED. NO DISTRESS NOTED. NO NEEDS AT THIS TIME. CALL MALDONADO IN REACH. General: Appears in no apparent distress. comfortable, Behavior is calm, cooperative, appropriate for age. Vital Signs: 17:30 BP 163 / 68; Pulse 79; Resp 15; Temp 98; Pulse Ox 98% ; ko1 18:51 BP 158 / 84; Pulse 77; Resp 17; Pulse Ox 99% ; ko1 19:05 BP 179 / 130; Pulse 74; Resp 16; Pulse Ox 97% ; jj7 19:49 BP 170 / 74; Pulse 58; Resp 17; Pulse Ox 100% ; Weight 81.65 kg; Pain 0/10; jj7 20:00 BP 178 / 94; Pulse 62; Resp 17; Pulse Ox 100% ; Pain 0/10; jj7 21:00 BP 182 / 70; Pulse 60; Resp 17; Pulse Ox 100% ; Pain 0/10; jj7 22:15 BP 171 / 76; Pulse 82; Resp 18; Pulse Ox 100% ; Pain 0/10; jj7 19:49 Pain Scale: Adult jj7 20:00 Pain Scale: Adult jj7 21:00 Pain Scale: Adult jj7 22:15 Pain Scale: Adult jj7 ED Course: 17:14 Patient arrived in ED. aa5 17:15 EKG done, by ED staff, reviewed by Kyree Cox MD. aa5 17:16 Kyree Cox MD is Attending Physician. juana 17:33 Sarai Tobar, RN is Primary Nurse. ko1 17:34 XRAY Chest (1 view) In Process Unspecified. EDMS 17:39 Basic Metabolic Panel Sent. ko1 17:39 PT-INR Sent. ko1 17:39 NT PRO-BNP Sent. ko1 17:39 Magnesium Sent. ko1 17:39 CBC with Diff Sent. ko1 17:39 Troponin HS Sent. ko1 17:58 CT Stone Protocol In Process Unspecified. EDMS 18:00 No provider procedures requiring assistance completed. Maintain EMS IV. Dressing ko1 intact. Good blood return noted. Site clean \T\ dry. Gauge \T\ site: 20g Left FA. Patient maintains SpO2 saturation greater than 95% on room air. 18:00 Patient has correct armband on for positive identification. Fall risk band placed. ko1 Placed in gown. Bed in low position. Call light in reach. Side rails up X2. Provided Education on: na. Client placed on continuous cardiac and pulse oximetry monitoring. NIBP monitoring applied. bus monitor on. Door closed. Noise minimized. Lights dimmed. Warm blanket given. 18:21 Triage completed. ko1 18:21 Arm band placed on right wrist. Patient placed in an exam room, on a stretcher, on ko1 monitor technician, on pulse oximetry, Patient notified of wait time. 18:39 Urinalysis w/ reflexes Sent. ko1 18:48 Bladder scan completed. 397cc. ko1 19:15 Sanchez Russell MD is Hospitalizing Provider. juana 22:37 Patient admitted, IV remains in place. jj7 Administered Medications: 17:34 Not Given (given by EMS): aspirinchewable tablet 324 mg PO once; 81 mg tablets x 4 ko1 18:13 Drug: Flomax PO 0.4 mg PO once Route: PO; ko1 19:15 Follow up: Response: No adverse reaction jj7 20:09 Drug: Famotidine IVP 20 mg IVP once; dilute with 10 mL 0.9% NaCl; give over 2 minutes jj7 Route: IVP; Site: left forearm; 20:40 Follow up: Response: No adverse reaction jj7 20:10 Drug: Rocephin - Rocephin (cefTRIAXone) IVPB 1 grams IVPB once over 30 mins; (mix in 50 jj7 mL NS) Route: IVPB; Infused Over: 30 mins; Site: left forearm; 20:40 Follow up: IV Status: Completed infusion jj7 20:10 Drug: Enoxaparin Sub-Q 1 mg/kg Sub-Q once Route: Sub-Q; Site: abdomen; jj7 20:40 Follow up: Response: No adverse reaction jj7 Medication: 18:00 VIS not applicable for this client. ko1 Intake: 18:48 IV: 120ml; Total: 120ml. ko1 Output: 18:48 Urine: 300ml (Voided); Total: 300ml. ko1 Outcome: 19:17 Decision to Hospitalize by Provider. juana 22:36 Admitted to Med/surg accompanied by nurse, via wheelchair, room 405, Report called to warren RESENDIZ RN 22:36 Condition: good 22:52 Patient left the ED. jj7 Signatures: Dispatcher [employer] EDKyree Tan MD MD cha Calderon, Audri, RN RN aa5 Sarai Tobar, RN RN ko1 James Bain RN RN jj7 Corrections: (The following items were deleted from the chart) 18:22 18:21 Allergies: Unable to obtain; ko1 ko1
[2023-10-12] MEDS ORDERED: ENOXAPARIN 80 MG/0.8 ML SQ ONE (19:54)
[2023-10-12] MEDS ORDERED: FAMOTIDINE 20 MG/2 ML VIAL IV ONE (19:55)
[2023-10-12] MEDS ORDERED: ONDANSETRON 4 MG/2 ML VIAL IV PRN (20:53)
--- NOTE | 2023-10-12 20:59 | P.HP ---
Certification for Inpatient Patient admitted to: Observation With expected LOS: <2 Midnights Practitioner: I am a practitioner with admitting privileges, knowledge of patient current condition, hospital course, and medical plan of care. Services: Services provided to patient in accordance with Admission requirements found in Title 42 Section 412.3 of the Code of Federal Regulations Patient History Date of Service: 10/13/23 Reason for admission: Altered mentation, urinary tract infection. History of Present Illness: 83-year-old male patient with medical history significant for hypertension, hyperlipidemia, diabetes type 2, history of coronary artery disease and gout was evaluated for episode of altered mentation. He was worked up in the emergency room and found to have significant elevated leukocyte esterase and extremely turbid urine that was very concerning for UTI. He was started on IV antibiotic therapy and IV fluid and was admitted for inpatient care. Allergies No Known Drug Allergies Allergy (Verified 08/18/16 02:20) Unknown Home Medications: Metoprolol Tartrate [Lopressor*] 25 mg PO BID 6AM 6PM 30 Days #60 tab 08/07/21 Melatonin 10 mg PO BEDTIME PRN PRN #30 07/07/23 Atorvastatin Calcium [Lipitor] 20 mg PO BEDTIME #30 tab 07/16/23 LORazepam [Ativan] 1 mg PO TID PRN 10/13/23 - Past Medical/Surgical History Diabetic: Yes -: Hypertension -: Type 2 diabetes -: Nephrolithiasis -: CKD 3 -: urethral stent placement -: cystoscopy -: hernia repair Psychosocial/ Personal History: Retired, lives at home with his - Family History Mother -: Hypertension Notes: alzheimers Father -: Cancer Notes: colon - Social History Alcohol use: No CD- Drugs: No Caffeine use: No Review of Systems General: Malaise, As per HPI Eyes: Unremarkable ENT: Unremarkable Respiratory: Unremarkable Cardiovascular: Unremarkable Gastrointestinal: Unremarkable Genitourinary: Unremarkable Musculoskeletal: Unremarkable Integumentary: Unremarkable Neurological: Confusion Lymphatics: Unremarkable Physical Examination - Physical Exam General: Alert, Oriented x3 HEENT: Atraumatic Neck: Supple Respiratory: Normal air movement Cardiovascular: Regular rate/rhythm, Normal S1 S2 Gastrointestinal: Soft and benign Musculoskeletal: No swelling Neurological: Normal speech, Normal strength at 5/5 x4 extr - Studies Laboratory Data (last 24 hrs) 10/12/23 10/12/23 10/12/23 17:35 17:35 17:35 WBC 8.40 Hgb 12.8 L Hct 37.1 L Plt Count 159 PT 12.7 H INR 1.16 Sodium Potassium BUN Creatinine Glucose Magnesium 2.4 10/12/23 17:35 WBC Hgb Hct Plt Count PT INR Sodium 138 Potassium 3.8 BUN 41 H Creatinine 2.12 H Glucose 112 H Magnesium Assessment and Plan - Plan Toxic/metabolic encephalopathy: Deemed secondary to infectious process of UTI. Empiric antibiotic therapy started. Significant improvement seen. Will follow closely. Urinary tract infection: UA is significantly concerning. Will continue empiric antibiotic therapy of Rocephin pending urine culture finalization. Will follow cultures for adjustment to antibiotic therapy as needed. Coronary artery disease: Continue statin therapy and aspirin. Hypertension: Monitor vital signs per unit protocol and continue antihypertensive medications. Prophylaxis: Lovenox for DVT prophylaxis: Code status: Full code. Disposition: We will treat his urinary tract infection and he will be discharged once deemed clinically stable. - Advance Directives Does patient have a Living Will: No Does patient have a Durable POA for Healthcare: No
[2023-10-12] MEDS: NA CHLORIDE 0.9% 1,000 ML IV SCH (21:00)
[2023-10-12] MEDS: LORazepam 2 MG/ML VIAL IV ONE (23:26)
[2023-10-12 23:54] VITALS: BMI 23.4
[2023-10-13 06:32] LABS: Absolute Lymphocytes (CBC) 1.1 K/uL (0.7-4.9); Hematocrit 36.5 % (39.6-49.0); Lymphocytes % 23.4 % (15.3-44.8); MCV 95.4 fL (80-100); MPV 7.9 fL (7.6-11.3); Platelets 166 thou/uL (152-406); RBC Red Blood Cell Count 3.83 M/uL (4.33-5.43)
[2023-10-13 06:51] LABS: Albumin 2.7 g/dL (3.4-5.0); Bilirubin Total 0.3 mg/dL (0.2-1.0); Potassium 3.6 mEq/L (3.5-5.1); Protein, Total 6.4 g/dL (6.4-8.2)
--- NOTE | 2023-10-13 08:25 | P.PN ---
Date of Service: 10/13/23 Subjective: reported urinary retention for few days leading up to admission. improved since ED. Feeling better today. mentation improved. Answering questions appropriately no new / worsening problems afebrile ROS: 10 point ROS as noted above, otherwise negative Physical Exam: GEN: Alert, oriented, NAD HEENT: Normal conjunctiva, sclera anicteric CV: Regular rate and rhythm, no edema Pulm: Nonlabored respirations on room air, clear bilaterally ABD: Soft, nontender, nondistended Neuro: Normal speech, normal affect vitals reviewed Problem List: Metabolic Encephalopathy secondary to UTI (acute cystitis) BRANDON on CKD3 Hypertension CAD DM2 Gout Toxic/Metabolic Encephalopathy secondary to UTI (acute cystitis) Patient reported urinary retention for few days leading up to admission. improved in ER / shortly after admission CT abdomen (10/12): cholelithasis without evidence of cholecystitis. small-mod left inguinal hernia urinalysis concerning for UTI urine cx (10/12): pending Continue empiric rocephin (10/13-) afebrile, no leukocytosis follow urine culture BRANDON on CKD3 creatinine 2.12 -> 1.59 Continue to monitor renal function decrease IVF baseline creatinine ~1.4-1.5 Hypertension resume home meds IV hydralazine PRN CAD Gout DM2 continue home meds as appropriate VTE: Lovenox Code: Full Dispo: Home ~ 2 days Pending cx results
[2023-10-13] MEDS: ENOXAPARIN 40 MG/0.4 ML SQ SCH (08:28)
[2023-10-13] MEDS ORDERED: MELATONIN 5 MG TABLET PO PRN (11:27)
[2023-10-13] MEDS: NA CHLORIDE 0.9% 1,000 ML IV SCH (11:27)
[2023-10-13] MEDS: METOPROLOL TAR 25 MG TAB PO SCH (11:33)
[2023-10-13] MEDS: LORAZEPAM 1 MG TABLET PO PRN (11:37)
[2023-10-13] MEDS: HYDRALAZINE HCL 20 MG/ML VIAL IV PRN (15:28)
--- NOTE | 2023-10-13 15:49 | EKG ---
Test Date: 2023-10-12 Test Time: 17:00:50 Customer Relations Representative: BETI MEASUREMENT RESULTS: Intervals: Rate: 66 WI: 238 QRSD: 136 QT: 440 QTc: 461 [place]: P: 51 WI: 238 QRS: 39 T: 32 INTERPRETIVE STATEMENTS: Sinus rhythm with 1st degree AV block Right bundle branch block Abnormal ECG Compared to ECG 07/15/2023 19:08:59 No significant changes Electronically Signed On 10-13-23 15:46:24 RESEARCH EDITOR by Josh Osei
[2023-10-13] MEDS: CEFTRIAXONE 1,000 MG in NA CHLORIDE 0.9% 50 ML IVPB SCH (17:13)
[2023-10-13] MEDS: ATORVASTATIN 20 MG TAB PO SCH (20:07)
[2023-10-14 07:00] LABS: Absolute Lymphocytes (CBC) 1.4 K/uL (0.7-4.9); Hematocrit 39.8 % (39.6-49.0); Lymphocytes % 17.3 % (15.3-44.8); MCV 96.1 fL (80-100); MPV 7.6 fL (7.6-11.3); Platelets 204 thou/uL (152-406); RBC Red Blood Cell Count 4.14 M/uL (4.33-5.43)
[2023-10-14 07:07] LABS: Magnesium 2.3 mg/dL (1.6-2.4); Potassium 3.5 mEq/L (3.5-5.1)
[2023-10-14] MEDS: ACETAMINOPHEN 325 MG TABLET PO PRN (07:12)
--- NOTE | 2023-10-14 09:04 | P.PN ---
Date of Service: 10/14/23 Subjective: rapid response called ~9 am due to decreased responsiveness, chest pain, difficulty breathing SPO2 97% on room air at time of rapid response. reports some difficulty breathing through nose prior to rapid response and was put on NC now feeling a little bit better BP elevated in 190s. HR okay in 70-80s afebrile ROS: 10 point ROS as noted above, otherwise negative Physical Exam: GEN: Alert, oriented, uncomfortable appearing HEENT: Normal conjunctiva, sclera anicteric CV: Regular rate and rhythm, no edema Pulm: mildly-labored respirations on 2L NC, diminished at bases b/l ABD: Soft, nontender, nondistended Neuro: Normal speech, normal affect vitals reviewed Problem List: Metabolic Encephalopathy secondary to UTI (acute cystitis) Chest pain Dyspnea Severe multivessel CAD BRANDON on CKD3 Hypertension CAD DM2 Gout Metabolic Encephalopathy secondary to UTI (acute cystitis) Patient reported urinary retention for few days leading up to admission. improved in ER / shortly after admission CT abdomen (10/12): cholelithasis without evidence of cholecystitis. small-mod left inguinal hernia urinalysis concerning for UTI urine cx (10/12): mixed aster. between 10k-100k CFU/ML Continue empiric rocephin (10/13-) afebrile, no leukocytosis follow urine culture Chest pain Dyspnea Severe multivessel CAD Patient noted to have a history of severe multivessel CAD. Patient had LHC done on 07/08/[address] Osei and was found to have severe multivessel CAD including the left main. Dr. Osei had recommended for CABG evaluation / CT surgical evaluation at the time however patient had declined repeatedly and opted for medical management due to anglican beliefs after being told he may need blood transfusion (10/14) rapid response called ~9 am due to decreased responsiveness, new chest pain, difficulty breathing SPO2 97% on room air at time of rapid response. reports some difficulty breathing through nose prior to rapid response and was put on NC flonase spray added given nasal irritation / redness CXR (10/14): negative for any acute findings trend troponins. monitor on tele Cardiology consulted BRANDON on CKD3 creatinine improving Continue to monitor renal function IVF dc'd 10/13 baseline creatinine ~1.4-1.5 Hypertension resume home meds IV hydralazine PRN CAD Gout DM2 continue home meds as appropriate VTE: Lovenox Code: Full Dispo: Home ~ 2 days Pending cx results / cardiac work up
--- NOTE | 2023-10-14 09:41 | RAD REPORT ---
EXAM DESCRIPTION: RAD - Chest Single View - 10/14/2023 9:33 am CLINICAL HISTORY: shortness of breath COMPARISON: Chest Single View dated 10/12/2023; Chest Single View dated 07/15/2023; Chest Single View dated 07/13/2023; Chest Single View dated 07/05/2023 FINDINGS: Lines: None. Lungs: No evidence of edema or pneumonia. Pleural: No significant pleural effusions or pneumothorax. Cardiac: The heart size is within normal limits. Mediastinum: Within normal limits. Bones: No acute fractures. Other: None IMPRESSION: No acute cardiopulmonary disease.
[2023-10-14] MEDS: FLUTICASONE 50MCG NASAL SPRAY NAS SCH (10:45)
[2023-10-14] MEDS: CEFDINIR 300 MG CAP PO SCH (14:44)
--- NOTE | 2023-10-14 17:24 | P.CNS ---
Date of Consult: 10/14/23 Chief Complaint: Altered mentation, urinary tract infection. History of Present Illness: Patient with known PMH of CAD (LM/LAD and LCX) disease who was referred for CT surgery but he refused bypass surgery due to blood less wishes, presented with UTI and he report that he will get those occasional chest pain that sound atypical as it only happens when he get anxiety attacks. Allergies No Known Drug Allergies Allergy (Verified 08/18/16 02:20) Unknown Home Medications: Metoprolol Tartrate [Lopressor*] 25 mg PO BID 6AM 6PM 30 Days #60 tab 08/07/21 Melatonin 10 mg PO BEDTIME PRN PRN #30 07/07/23 Atorvastatin Calcium [Lipitor] 20 mg PO BEDTIME #30 tab 07/16/23 LORazepam [Ativan] 1 mg PO TID PRN 10/13/23 - Past Medical/Surgical History Diabetic: Yes -: Hypertension -: Type 2 diabetes -: Nephrolithiasis -: CKD 3 -: urethral stent placement -: cystoscopy -: hernia repair Psychosocial/ Personal History: Retired, lives at home with his - Family History Mother Medical History: Hypertension Notes: alzheimers Father Medical History: Cancer Notes: colon - Social History Smoking Status: Unknown if ever smoked Alcohol use: No CD- Drugs: No Caffeine use: No Review of Systems 10-point ROS is otherwise unremarkable Physical Examination Temp Pulse Resp BP Pulse Ox 98.3 F 70 18 153/68 H 95 10/14/23 16:00 10/14/23 16:00 10/14/23 16:00 10/14/23 16:00 10/14/23 16:00 General: Alert HEENT: Atraumatic Neck: Supple Respiratory: Clear to auscultation bilaterally Cardiovascular: No edema, Normal S1 S2 Gastrointestinal: Normal bowel sounds Laboratory Data (last 24 hrs) 10/14/23 10/14/23 06:44 06:44 WBC 8.30 Hgb 13.7 Hct 39.8 Plt Count 204 Sodium 143 Potassium 3.5 BUN 26 H Creatinine 1.39 H Glucose 138 H Magnesium 2.3 - Problems (1) Coronary artery disease Current Visit: No Status: Acute Plan: Patient with known CAD, LM/LAD and LCX disease who refused surgery to blood less wishes. patient is not having real anginal pain and he is having anxiety attacks. Troponin are negative x 2 Continue current medications
[2023-10-15 05:58] LABS: Absolute Lymphocytes (CBC) 1.5 K/uL (0.7-4.9); Hematocrit 38.6 % (39.6-49.0); MCV 95.5 fL (80-100); MPV 7.3 fL (7.6-11.3); Platelets 181 thou/uL (152-406); RBC Red Blood Cell Count 4.04 M/uL (4.33-5.43)
[2023-10-15 06:13] LABS: Potassium 3.8 mEq/L (3.5-5.1)
[2023-10-15] MEDS: METOPROLOL TAR 25 MG TAB PO SCH (07:40)
[2023-10-15 10:06] VITALS: O2SAT 97
[2023-10-15] MEDS: AMLODIPINE 5 MG TAB PO SCH (10:45)
[2023-10-15 10:51] VITALS: BP 148/77
--- NOTE | 2023-10-15 11:36 | P.DS ---
Admission Date: 10/14/23 Discharge Date: 10/15/23 Disposition: ROUTINE DISCHARGE Discharge Condition: GOOD Reason for Admission: Altered mentation, urinary tract infection. Consultations: Cardiology - Dr. Mccormack Brief History of Present Illness: 83yo M, PMH: hypertension, hyperlipidemia, diabetes type 2, history of coronary artery disease and gout Patient presented to the ED with episode of altered mentation. He was worked up in the emergency room and found to have significant elevated leukocyte esterase and extremely turbid urine that was very concerning for UTI. He was started on IV antibiotic therapy and IV fluid and was admitted for inpatient care. Hospital Course: Problem List: Metabolic Encephalopathy secondary to UTI (acute cystitis) Anxiety attack Severe multivessel CAD BRANDON on CKD3; ~baseline Hypertension DM2 Gout Patient presented with urinary retention and some confusion. Workup revealed an BRANDON and Urinalysis in the ED was concerning for UTI. CT abdomen noted small-mod left inguinal hernia, otherwise negative. In the ER, he reported feeling a "good pop" and was suddenly able to urinate well. He reports a history of kidney stones in the past that required urologic intervention, and feels like he occasionally still passes small stones. Patient was started on empiric rocephin and had improvement of his symptoms. Urine culture grew mixed aster (between 10k-100k CFU/ml). Patient had quick improvement of his symptoms. No issues voiding, no dysuria, remained afebrile and without leukocytosis. Uncertain if he passed a small stone that was temporarily causing obstruction and his symptoms. Patient is to complete 7 days of Cefdinar on discharge. During his hospitalization, a rapid response was called ~9am on 10/14 due him feeling short of breath and having some chest discomfort. Chest x-ray was without any acute findings. EKG without ST/T wave changes, and troponins were trended and remained normal and flat. He has a history of multivessel coronary artery disease and recommended to have CABG evaluation, however patient decided not to go through with it due to risk of blood products / sikh beliefs. Given his symptoms and risk, Cardiology was consulted and workup was done as noted above. Results were not consistent with acute coronary syndrome, and Cardiology (and patient) agreed this episode was more consistent with his anxiety / panic attacks. This improved with continuation of his home ativan. No further cardiac work up this hospitalization. Recommend to follow up with cardio logy in office in near future for further management. Blood pressure was noted to be intermittently elevated in 180-200s while on his regular home antihypertensive regimen of metoprolol. Several of these elevated blood pressure readings seemed to be correlating with his anxiety / panic attacks, however was difficult to differentiate at times with 100% certainty. He was started on amlodipine 5mg and will take this at home as well. Advised to check blood pressure daily around the same time. Keep daily log to take to follow up appointments with PCP / cardiology for further adjustments of antihypertensive medications. Continue metoprolol as previously prescribed. Patient with history of CKD3 was noted to have an BRANDON on admission with serum creatinine 2.12. Patient had quick turn around with IV fluids and creatinine improved back to patients ~baseline. Serum creatinine on discharge: 1.32. Advised to repeat blood work in ~1 week to monitor renal function. Recommend routine follow up with nephrology in near future. Medications: Cefdinir 300mg PO BID x7 days Amlodipine 5mg PO daily for blood pressure continue other home medications not listed as previously prescribed. Follow up: PCP 3-5 days Cardiology 2-4 weeks Nephrology 2-4 weeks Physical Exam: GEN: Alert, oriented, NAD HEENT: Normal conjunctiva, sclera anicteric CV: Regular rate and rhythm, no edema Pulm: non-labored respirations on room air ABD: Soft, nontender, nondistended Neuro: Normal speech, normal affect Vital Signs/Physical Exam: Temp Pulse Resp BP Pulse Ox 98.2 F 72 20 148/77 H 97 10/15/23 08:00 10/15/23 10:45 10/15/23 08:00 10/15/23 10:45 10/15/23 08:00 Laboratory Data at Discharge: WBC 6.90 thou/uL (4.3-10.9) 10/15/23 05:05 Hgb 13.4 g/dL (13.6-17.9) L 10/15/23 05:05 Hct 38.6 % (39.6-49.0) L 10/15/23 05:05 Plt Count 181 thou/uL (152-406) 10/15/23 05:05 PT 12.7 SECONDS (9.5-12.5) H 10/12/23 17:35 INR 1.16 10/12/23 17:35 Sodium 141 mEq/L (136-145) 10/15/23 05:05 Potassium 3.8 mEq/L (3.5-5.1) 10/15/23 05:05 BUN 32 mg/dL (7-18) H 10/15/23 05:05 Creatinine 1.32 mg/dL (0.70-1.30) H 10/15/23 05:05 Glucose 113 mg/dL (74-106) H 10/15/23 05:05 Magnesium 2.3 mg/dL (1.6-2.4) 10/14/23 06:44 Total Bilirubin 0.3 mg/dL (0.2-1.0) 10/13/23 05:45 AST 9 U/L (15-37) L 10/13/23 05:45 ALT 22 U/L (16-61) 10/13/23 05:45 Alkaline Phosphatase 89 U/L (45-117) 10/13/23 05:45 Home Medications: Metoprolol Tartrate [Lopressor*] 25 mg PO BID 6AM 6PM 30 Days #60 tab 08/07/21 Melatonin 10 mg PO BEDTIME PRN PRN #30 07/07/23 Atorvastatin Calcium [Lipitor*] 20 mg PO BEDTIME #30 tab 07/16/23 LORazepam [Ativan*] 1 mg PO TID PRN 10/13/23 Amlodipine [Norvasc*] 5 mg PO DAILY 30 Days #30 tab 10/15/23 Cefdinir [Cefdinir*] 300 mg PO BID 7 Days #14 cap 10/15/23 New Medications: Cefdinir [Cefdinir*] 300 mg PO BID 7 Days #14 cap Amlodipine [Norvasc*] 5 mg PO DAILY 30 Days #30 tab Physician Discharge Instructions: Patient presented with urinary retention and some confusion. Workup revealed an BRANDON and Urinalysis in the ED was concerning for UTI. CT abdomen noted small-mod left inguinal hernia, otherwise negative. In the ER, he reported feeling a "good pop" and was suddenly able to urinate well. He reports a history of kidney stones in the past that required urologic intervention, and feels like he occasionally still passes small stones. Patient was started on empiric rocephin and had improvement of his symptoms. U rine culture grew mixed aster (between 10k-100k CFU/ml). Patient had quick improvement of his symptoms. No issues voiding, no dysuria, remained afebrile and without leukocytosis. Uncertain if he passed a small stone that was temporarily causing obstruction and his symptoms. Patient is to complete 7 days of Cefdinar on discharge. During his hospitalization, a rapid response was called ~9am on 10/14 due him feeling short of breath and having some chest discomfort. Chest x-ray was without any acute findings. EKG without ST/T wave changes, and troponins were trended and remained normal and flat. He has a history of multivessel coronary artery disease and recommended to have CABG evaluation, however patient decided not to go through with it due to risk of blood products / sikh beliefs. G iven his symptoms and risk, Cardiology was consulted and workup was done as noted above. Results were not consistent with acute coronary syndrome, and Cardiology (and patient) agreed this episode was more consistent with his anxiety / panic attacks. This improved with continuation of his home ativan. No further cardiac work up this hospitalization. Recommend to follow up with cardiology in office in near future for further management. Blood pressure was noted to be intermittently elevated in 180-200s while on his regular home antihypertensive regimen of metoprolol. Several of these elevated blood pressure readings seemed to be correlating with his anxiety / panic attacks, however was difficult to differentiate at times with 100% certainty. He was started on amlodipine 5mg and will take this at home as well. Advised to check blood pressure daily around the same time. Keep daily log to take to follow up appointments with PCP / cardiology for further adjustments of antihypertensive medications. Continue metoprolol as previously prescribed. Patient with history of CKD3 was noted to have an BRANDON on admission with serum creatinine 2.12. Patient had quick turn around with IV fluids and creatinine improved back to patients ~baseline. Serum creatinine on discharge: 1.32. Advised to repeat blood work in ~1 week to monitor renal function. Recommend routine follow up with nephrology in near future. Medications: Cefdinir 300mg PO BID x7 days Amlodipine 5mg PO daily for blood pressure continue other home medications not listed as previously prescribed. Follow up: PCP 3-5 days Cardiology 2-4 weeks Nephrology 2-4 weeks Followup: Toni Rosa DO [ACTIVE - CAN ADMIT] - (follow up in 2-4 weeks) Lalo Munroe DO, DO [Primary Care Provider] - (F/U in 3-5 days) Josh Osei MD [ACTIVE - CAN ADMIT] - (follow up in 2-4 weeks, call to schedule an appointment.) Time spent managing pt's care (in minutes): 45
[2023-10-15 11:56] VITALS: TEMP 97.8
--- NOTE | 2023-10-15 15:27 | EKG ---
Test Date: 2023-10-14 Test Time: 10:11:29 Petroleum Refinery Worker: BRIANNA MEASUREMENT RESULTS: Intervals: Rate: 72 SC: QRSD: 134 QT: 446 QTc: 488 [place]: P: SC: QRS: 3 T: 22 INTERPRETIVE STATEMENTS: Normal sinus rhythm Right bundle branch block Abnormal ECG Compared to ECG 10/14/2023 10:09:57 First degree AV block no longer present Electronically Signed On 10-15-23 15:24:22 LINOLEUM TILE FLOOR LAYER by Josh Osei
--- NOTE | 2023-10-15 15:27 | EKG ---
Test Date: 2023-10-14 Test Time: 10:09:57 Supervisor Assembly Room: BRIANNA MEASUREMENT RESULTS: Intervals: Rate: 71 NH: 228 QRSD: 128 QT: 432 QTc: 469 [place]: P: 43 NH: 228 QRS: 3 T: 6 INTERPRETIVE STATEMENTS: Sinus rhythm with 1st degree AV block Right bundle branch block Abnormal ECG Compared to ECG 10/12/2023 17:00:50 No significant changes Electronically Signed On 10-15-23 15:24:25 ELECTRIC SCREW DRIVER OPERATOR by Josh Osei
== END 2023-10-15 13:46 | disposition home or self-care (01) | DRG 689 ==
LOC: ER 17:05 → ERHOLD 20:53 → 4TH 21:50 → OBSVTOIN 10-14 15:40
PROVIDERS: ADMIT Internal Medicine Nephrology; ATTEND Hospitalist
DX: N30.00 Acute cystitis without hematuria (principal); G92.8 Other toxic encephalopathy; N17.9 Acute kidney failure, unspecified; I25.110 Atherosclerotic heart disease of native coronary artery with unstable angina pectoris; I12.9 Hypertensive chronic kidney disease with stage 1 through stage 4 chronic kidney disease, or unspecified chronic kidney disease; N18.30 Chronic kidney disease, stage 3 unspecified; E11.22 Type 2 diabetes mellitus with diabetic chronic kidney disease; M10.9 Gout, unspecified; E78.5 Hyperlipidemia, unspecified; K40.90 Unilateral inguinal hernia, without obstruction or gangrene, not specified as recurrent; F41.0 Panic disorder [episodic paroxysmal anxiety]; K80.20 Calculus of gallbladder without cholecystitis without obstruction; R33.9 Retention of urine, unspecified; Z79.899 Other long term (current) drug therapy
CPT/HCPCS: 36415; 71045; 74176; 76377; 80048; 80053; 81001; 82947; 83735; 83880; 84484; 85025; 85610; 87086; 87088; 93005; 96365; 96372; 96375; 99285; G0378; J0360; J0696; J1650; J7030

== ENCOUNTER 2023-12-13 15:00 | Emergency (ER) | payer OTHER ==
--- OUTSIDE RECORDS SUMMARY | 2023-12-13 15:03 | XMS REPORT | Continuity of Care Document ---
Author Name Unknown Address [address] [facility] [address] [place] [address] [facility] Address [address] [address] [place] [address] Care Team Providers Care Optical Model Maker And Tester Name Role Phone Lalo Munroe Attending Clinician Unavailable Problems Condition Name Condition Details Condition Category Status Onset Date Resolution Date Last Treatment Date Treating Clinician Comments Source [id number] Microscopi c hematuria Problem [facility] History of nephrolith iasis History of nephrolith iasis Problem [facility] Left flank pain Left flank pain Problem [facility] 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 BPH loc w urin obs/LUTS Problem [facility] Social History Social Habit Start Date Stop Date Quantity Comments Source History of Tobacco Use [facility] Sex Assigned At [facility] Smoking Status Start Date Stop Date Source Never Smoker [facility] Medications Ordered Medication Name Filled [...] height 2023-01-08 15:15:00 72 [in_i] Commo n [facility] weight 2023-01-08 15:15:00 160.8 [lb_av] Co mmon [facility] temperature 2023-01-08 15:15:00 97.9 [degF] Com mon [facility] bmi 2023-01-08 15:15:00 21.81 kg/m2 Comm on [facility] oximetry 2023-01-08 15:15:00 99 % Commo n [facility] respiratory rate 2023-01-08 15:15:00 18 /min [facility] blood pressure systolic 2023-01-08 15:15:00 199 mm[Hg] [facility] blood pressure diastolic 2023-01-08 15:15:00 86 mm[Hg] [facility] Encounters Start Date/Time End Date/Time Encounter Type Admission Type Attending Clinicians Care Facility Care Department Encounter ID Source 2023-01-08 13:53:03 Outpatient [facility]yla [facility] [id number] [facility] 2023-01-14 00:00:00 2023-01-14 00:00:00 (TEL) [facility] [id number] [facility] 2023-01-08 00:00:00 2023-01-08 00:00:00 OFFICE VISIT NEW PT LEVEL 3 [facility] [id number] [facility]
[2023-12-13] MEDS ORDERED: LORAZEPAM 1 MG TABLET ONE (15:36)
[2023-12-13 15:56] LABS: Absolute Eosinophils 0.1 K/uL (0-0.5); Absolute Lymphocytes (CBC) 0.9 K/uL (0.7-4.9); Absolute Monocytes 0.6 K/uL (0.1-1.3); Absolute Neutrophil 4.1 K/uL (1.8-8.0); Basophils % 0.6 % (0-1.3); Eosinophils % 1.8 % (0-4.4); Hematocrit 36.8 % (39.6-49.0); Hemoglobin 12.7 g/dL (13.6-17.9); Lymphocytes % 15.8 % (15.3-44.8); MCH 32.7 pg (27.0-35.0); MCHC 34.6 g/dL (32.0-36.0); MCV 94.7 fL (80-100); MPV 7.4 fL (7.6-11.3); Monocytes % 10.5 % (3.3-12.3); Neutrophils % 71.3 % (41.7-73.7); Nucleated Red Blood Cells % 0.2 % (0-0); Platelets 197 thou/uL (152-406); RBC Red Blood Cell Count 3.89 M/uL (4.33-5.43); Red Cell Distribution Width 12.7 % (12.1-15.2)
[2023-12-13 16:02] LABS: PT Prothrombin Time 12.5 SECONDS (9.5-12.5); PTT, Activated Partial Thromb 35.6 SECONDS (24.3-36.9); Protime INR 1.14
--- NOTE | 2023-12-13 16:32 | ER ---
Nurse's Notes [facility] Name: Yeyo Pelayo Age: 83 yrs Sex: Male : 1940 Arrival Date: 12/13/2023 Time: 15:00 Bed 11 Private MD: Diagnosis: actinic purpura Presentation: 12/12 15:08 Chief complaint: Patient states: Purple/reddish spots noticed a week ago, seems like nj1 "they are spreading and getting bigger" Denies taking blood thinners. Coronavirus screen: Vaccine status: Patient reports receiving the 2nd dose of the covid vaccine. Ebola Screen: Patient denies travel to an Ebola-affected area in the 21 days before illness onset. Initial Sepsis Screen: Does the patient meet any 2 criteria? No. Patient's initial sepsis screen is negative. Does the patient have a suspected source of infection? No. Patient's initial sepsis screen is negative. Risk Assessment: Do you want to hurt yourself or someone else? Patient reports no desire to harm self or others. Onset of symptoms was November 2023. 15:08 Method Of Arrival: Ambulatory [facility] 15:08 Acuity: KEN 4 nj1 Triage Assessment: 15:14 General: Appears in no apparent distress. comfortable, Behavior is calm, cooperative, nj1 appropriate for age. Pain: Denies pain. Neuro: Level of Consciousness is awake, alert, obeys commands, Oriented to person, place, time, situation. Cardiovascular: Patient's skin is warm and dry. Derm: Skin is intact, Skin is Purple/reddish spots noted to left forearm. Non active bleeding noted. Historical: - Allergies: 15:12 No Known Allergies; rs5 - PMHx: 15:12 Diabetes - NIDDM; Hypertension; Kidney stones; nj1 - PSHx: 15:12 Lithotripsy; Stented artery; nj1 - Immunization history:: Client reports receiving the 2nd dose of the Covid vaccine. - Infectious Disease History:: Denies. - Social history:: Smoking status: Patient denies any tobacco usage or history of. Screenin:[facility] ED Fall Risk Assessment (Adult) History of falling in the last 3 months, rs5 including since admission No falls in past 3 months (0 pts) Confusion or Disorientation No (0 pts) Intoxicated or Sedated No (0 pts) Impaired Gait No (0 pts) Mobility Assist Device Used No (0 pt) Altered Elimination No (0 pt) Score/Fall Risk Level 0 - 2 = Low Risk Oriented to surroundings, Maintained a safe environment. Abuse screen: Denies threats or abuse. Nutritional screening: No deficits noted. Tuberculosis screening: No symptoms or risk factors identified. Assessment: 15:10 Derm: purple red-julián spots noted to left inner forearm. pt denies pain. pt denies rs5 taking blood thinners. no swelling, or signs of infection noted. 15:10 General: Appears in no apparent distress. comfortable, Behavior is cooperative, rs5 anxious. Pain: Denies pain. Neuro: Level of Consciousness is awake, alert, obeys commands, Oriented to person, place, time, situation. Cardiovascular: Rhythm is regular. Respiratory: Airway is patent Respiratory effort is even, unlabored, Respiratory pattern is regular, symmetrical. GI: Abdomen is round non-distended, Abd is soft and non tender X 4 quads. : No signs and/or symptoms were reported regarding the genitourinary system. EENT: No signs and/or symptoms were reported regarding the EENT system. Musculoskeletal: Range of motion: intact in all extremities. 16:22 Reassessment: Patient and/or family updated on plan of care and expected duration. Pain rs5 level reassessed. Patient is alert, oriented x 3, equal unlabored respirations, skin warm/dry/pink. Patient states feeling better. 16:22 General: Behavior is calm, cooperative. rs5 Vital Signs: 15:08 BP 165 / 71; Pulse 66; Resp 17; Temp 98(O); Pulse Ox 100% on R/A; Weight 72.57 kg; nj1 Height 6 ft. 1 in. ; 16:25 BP 160 / 77; Pulse 68; Resp 18; Pulse Ox 99% on R/A; rs5 15:08 Body Mass Index 21.11 (72.57 kg, 185.42 cm) [facility] ED Course: 15:04 Patient arrived in ED. mg5 15:10 Patient has correct armband on for positive identification. Placed in gown. Bed in low rs5 position. Call light in reach. Side rails up X2. 15:10 No provider procedures requiring assistance completed. rs5 15:12 Triage completed. nj1 15:14 Arm band placed on right wrist. nj1 15:20 Nicolasa Thomson PA-C is PHCP. jr12 15:20 Geri Miller MD is Attending Physician. jr12 15:42 Initial lab(s) drawn, by me, sent to lab. nj1 16:35 Cristian Valladares, RN is Primary Nurse. rs5 16:45 IV discontinued, intact, bleeding controlled, No redness/swelling at site. Pressure rs5 dressing applied. Administered Medications: 15:40 Drug: LORazepam PO 1 mg PO once Route: PO; nj1 16:21 Follow up: Response: No adverse reaction rs5 Medication: 16:01 VIS not applicable for this client. rs5 Outcome: 16:31 Discharge ordered by MD. sb4 16:45 Discharged to home ambulatory, rs5 16:45 Condition: stable rs5 16:45 Discharge instructions given to patient, family, Instructed on discharge instructions, follow up and referral plans. Demonstrated understanding of instructions, follow-up care, 16:46 Patient left the ED. rs5 Signatures: Nicolasa Thomson PA-C PA-C 4 Cristian Valladares, RN RN rs5 Lucie Foreman RN RN [facility] [place] mg5 Tash Samaniego jr12 Corrections: (The following items were deleted from the chart) 16:54 15:10 General: Appears in no apparent distress. comfortable, Behavior is calm, rs5 cooperative, rs5 16:55 16:22 Reassessment: No changes from previously documented assessment. rs5 rs5
--- NOTE | 2023-12-13 16:32 | EDPHYS ---
Physician Documentation [facility] Name: Yeyo Pelayo Age: 83 yrs Sex: Male : 1940 Arrival Date: 12/13/2023 Time: 15:00 Bed 11 Private MD: ED Physician Geri Miller HPI: 12/13 08:10 This 83 yrs old Male presents to ER via Ambulatory with complaints of Skin Problem. sb4 08:10 Patient presents with concerns of multiple skin lesions on his left arm. He states that sb4 he first noticed them a few days ago and feels like they are growing and spreading. He denies any trauma to his arm pain or itching in the area. Is not on any blood thinners, has not had these in the past. Historical: - Allergies: 12/12 15:12 No Known Allergies; rs5 - PMHx: 15:12 Diabetes - NIDDM; Hypertension; Kidney stones; nj1 - PSHx: 15:12 Lithotripsy; Stented artery; nj1 - Immunization history:: Client reports receiving the 2nd dose of the Covid vaccine. - Infectious Disease History:: Denies. - Social history:: Smoking status: Patient denies any tobacco usage or history of. ROS: 12/13 08:10 Constitutional: Negative for fever, chills, and weight loss, sb4 Skin: Positive for lesions, of the dorsal aspect of left forearm, All other systems are negative, Exam: 08:10 Constitutional: This is a well developed, well nourished patient who is awake, alert, sb4 and in no acute distress. Head/Face: Normocephalic, atraumatic. Eyes: Extra-ocular motions intact. Periorbital areas with no swelling, redness, or edema. ENT: Mucous membranes moist. MS/ Extremity: Pulses equal, no cyanosis. Neurovascular intact. Full, normal range of motion. 08:10 Skin: lesion(s), probable senile purpura, located on the dorsal aspect of left forearm, Vital Signs: 12/12 15:08 BP 165 / 71; Pulse 66; Resp 17; Temp 98(O); Pulse Ox 100% on R/A; Weight 72.57 kg; nj1 Height 6 ft. 1 in. ; 16:25 BP 160 / 77; Pulse 68; Resp 18; Pulse Ox 99% on R/A; rs5 15:08 Body Mass Index 21.11 (72.57 kg, 185.42 cm) nj1 MDM: 15:21 Patient medically screened. sb4 12/13 08:10 Data reviewed: vital signs, nurses notes, lab test result(s), and as a result, I will sb4 discharge patient. Counseling: I had a detailed discussion with the patient and/or guardian regarding the historical points, exam findings, and any diagnostic results supporting the discharge/admit diagnosis, lab results, to return to the emergency department if symptoms worsen or persist or if there are any questions or concerns that arise at home. 12/12 15:27 Order name: CBC with Diff; Complete Time: 16:00 sb4 12/12 15:27 Order name: BMP; Complete Time: 16:14 sb4 12/12 15:27 Order name: PT-INR; Complete Time: 16:03 sb4 12/12 15:27 Order name: Ptt, Activated; Complete Time: 16:03 sb4 Administered Medications: 12/12 15:40 Drug: LORazepam PO 1 mg PO once Route: PO; nj1 16:21 Follow up: Response: No adverse reaction rs5 Disposition Summary: 12/13/23 16:31 Discharge Ordered Notes: Location: Home sb4 Problem: new sb4 Symptoms: are unchanged sb4 Condition: Stable sb4 Diagnosis - actinic purpura sb4 Followup: sb4 - With: Private Physician - When: As needed - Reason: Recheck today's complaints, Re-evaluation by your physician Discharge Instructions: - Discharge Summary Sheet sb4 Forms: - Antibiotic Education sb4 - Patient Portal Instructions sb4 - Leadership Thank You Letter sb4 Signatures: Dispatcher [employer] Nicolasa Hogan PA-C PAAmarilis sb4 Cristian Valladares, RN RN rs5 Lucie Foreman RN RN nj1
[2023-12-13 17:21] VITALS: BP 165/71; TEMP 98; O2SAT 100
== END 2023-12-13 16:46 | disposition home or self-care (01) ==
LOC: ER 15:00
DX: D69.2 Other nonthrombocytopenic purpura (principal); E11.9 Type 2 diabetes mellitus without complications; I10 Essential (primary) hypertension; Z87.442 Personal history of urinary calculi
CPT/HCPCS: 36415; 80048; 85025; 85610; 85730; 99283

== ENCOUNTER 2024-05-04 15:02 | Inpatient (IN) | payer OTHER ==
[2024-05-04 16:57] LABS: Absolute Eosinophils 0.1 K/uL (0-0.5); Absolute Lymphocytes (CBC) 0.9 K/uL (0.7-4.9); Absolute Monocytes 0.8 K/uL (0.1-1.3); Absolute Neutrophil 6.2 K/uL (1.8-8.0); Basophils % 0.6 % (0-1.3); Eosinophils % 1.3 % (0-4.4); Hematocrit 34.1 % (39.6-49.0); Hemoglobin 11.1 g/dL (13.6-17.9); Lymphocytes % 11.6 % (15.3-44.8); MCH 31.1 pg (27.0-35.0); MCHC 32.6 g/dL (32.0-36.0); MCV 95.5 fL (80-100); MPV 7.3 fL (7.6-11.3); Monocytes % 10.2 % (3.3-12.3); Neutrophils % 76.3 % (41.7-73.7); Platelets 271 thou/uL (152-406); RBC Red Blood Cell Count 3.58 M/uL (4.33-5.43)
[2024-05-04 17:03] LABS: PT Prothrombin Time 12.7 SECONDS (9.4-12.5); Protime INR 1.14
[2024-05-04 17:15] LABS: Albumin 2.8 g/dL (3.4-5.0); Albumin/Globulin Ratio 0.5 (1.1-1.8); Alkaline Phosphatase 97 U/L (45-117); Anion Gap 8.8 mEq/L (5.0-15.0); BUN Blood Urea Nitrogen 31 mg/dL (7-18); Bicarbonate 25 mEq/L (21-32); Bilirubin Total 0.3 mg/dL (0.2-1.0); Globulin 5.3 g/dL (2.3-3.5); Glomerular Filtration Rate 37 ml/min (=/>90); Glucose Level 126 mg/dL (74-106); Potassium 3.8 mEq/L (3.5-5.1); Protein, Total 8.1 g/dL (6.4-8.2); Sodium Level 137 mEq/L (136-145)
--- NOTE | 2024-05-04 17:17 | RAD REPORT ---
Procedure: Chest Single View History: Cough Comparison: September 2023 The lungs appear clear of acute infiltrate. No significant pleural effusion noted. The heart is normal size. IMPRESSION: No acute abnormality is displayed.
[2024-05-04 17:18] LABS: ALT/SGPT < 14 U/L (16-61); AST/SGOT < 10 U/L (15-37)
--- NOTE | 2024-05-04 17:25 | RAD REPORT ---
EXAMINATION: XR RIGHT FOOT CLINICAL INDICATION: Foot swelling. Foot wound FINDINGS: Amputation fourth digit. Bony destruction 4th metatarsal head and neck likely osteomyelitis Cortical irregularity fifth metatarsal head and base of the fifth proximal phalanx equivocal for yoly tional osteomyelitis No fracture or dislocation
[2024-05-04 17:58] LABS: Specific Gravity 1.006 (1.005-1.030); Sqamous Epithelial None Seen /HPF (None Seen); Urine Bacteria <20 /HPF (<20); Urine Bilirubin NEGATIVE (Negative); Urine Blood Trace (Negative); Urine Clarity Extremely Turbid (Clear); Urine Color Colorless (Yellow); Urine Crystals Unidentified Few /HPF (None Seen); Urine Culture Reflex Order REFLEXED; Urine Glucose NEGATIVE (Negative); Urine Ketones NEGATIVE (Negative); Urine Microscopic Reflex YN ORDER UMIC; Urine Mucus Slight /HPF (None Seen); Urine Nitrite NEGATIVE (Negative); Urine Protein NEGATIVE (Negative); Urine RBC <5 /HPF (None Seen); Urine Urobilinogen Normal (Normal); Urine WBC >50 /HPF (<5); Urine WBC Clump Occasional /HPF (None Seen); Urine Yeast (Budding) Moderate /HPF (None Seen); Urine pH 5.5 (5.0-7.0)
--- NOTE | 2024-05-04 18:21 | EDPHYS ---
Physician Documentation [facility] Name: Yeyo Pelayo Age: 83 yrs Sex: Male : 1940 Arrival Date: 05/04/2024 Time: 15:02 Bed 19 Private MD: ED Physician Kyree Cox HPI: 05/04 15:35 This 83 yrs old Male presents to ER via Wheelchair with complaints of Foot Pain - WOUND.cp 15:35 Patient is a 83-year-old male with a past medical history significant for diabetes, cp kidney disease, and hypertension who presents to the emergency department after being sent over by wound care. Patient has a chronic wound to his right foot was at wound care today who became concerned about it appearing worse and not healing. History of right fourth toe amputation. 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 - Infectious Disease History:: Denies. - Social history:: Smoking status: Patient denies any tobacco usage or history of. ROS: 15:40 Constitutional: hx per hpi cp 15:40 Constitutional: Negative for body aches, chills, fever, poor PO intake, 15:40 Cardiovascular: Negative for chest pain, palpitations, 15:40 Abdomen/GI: Negative for abdominal pain, nausea, vomiting, and diarrhea, 15:40 Neuro: Negative for altered mental status, dizziness, weakness, 15:40 All other systems are negative, Exam: 15:45 Constitutional: The patient appears in no acute distress, alert, awake, comfortable, cp non-diaphoretic, non-toxic, well developed, well nourished, 15:45 Head/Face: Normocephalic, atraumatic. cp 15:45 Eyes: Periorbital structures: appear normal, Conjunctiva: normal, no exudate, no injection, Sclera: no appreciated abnormality, Lids and lashes: appear normal, bilaterally, 15:45 ENT: External ear(s): are unremarkable, Nose: is normal, Mouth: Lips: moist, Oral mucosa: moist, Posterior pharynx: Airway: no evidence of obstruction, patent, 15:45 Chest/axilla: Inspection: normal, 15:45 Cardiovascular: Rate: normal, Rhythm: regular, Edema: is not appreciated, JVD: is not appreciated, 15:45 Respiratory: the patient does not display signs of respiratory distress, Respirations: normal, no use of accessory muscles, no retractions, labored breathing, is not present, Breath sounds: are clear throughout, no decreased breath sounds, no stridor, no wheezing, 15:45 Abdomen/GI: Exam negative for discomfort, distension, guarding, Inspection: abdomen appears normal, 15:45 Musculoskeletal/extremity: Extremities: noted in the right foot: amputation site open and appears with erythema, mild purulent drainage with extension of erythema and swelling proximally, Pulses: weak, palpable dorsalis pedis pulse right foot, 15:45 Neuro: Orientation: to person, place \T\ time. Mentation: is normal, Motor: moves all fours, strength is normal, 16:58 ECG was reviewed by the Attending Physician. Vital Signs: 15:21 BP 131 / 76; Pulse 67; Resp 19; Temp 98.6(O); Pulse Ox 100% on R/A; Weight 72.57 kg; iw Height 6 ft. 1 in. ; Pain 1/10; 17:01 BP 137 / 80; Pulse 71; Resp 17; Pulse Ox 99% on R/A; rs5 17:01 BP 140 / 74; Pulse 75; Resp 17; Pulse Ox 98% on R/A; rs5 19:00 BP 179 / 72; Pulse 72; Resp 18; Pulse Ox 98% ; cp4 15:21 Body Mass Index 21.11 (72.57 kg, 185.42 cm) iw 15:21 Pain Scale: Adult iw MDM: 15:30 Patient medically screened. 18:20 Data reviewed: vital signs, nurses notes, lab test result(s), radiologic studies, plain cp films, and as a result, I will admit patient. 18:20 I considered the following discharge prescriptions or medication management in the emergency department Medications were administered in the Emergency Department. See MAR. Independent interpretation of the following test(s) in the Emergency Department EKG: See my EKG interpretation above. Care significantly affected by the following chronic conditions: Diabetes, Hypertension, Chronic Kidney Disease. Counseling: I had a detailed discussion with the patient and/or guardian regarding the historical points, exam findings, and any diagnostic results supporting the discharge/admit diagnosis, lab results, radiology results, the need for further work-up and treatment in the hospital. 18:25 Management of patient was discussed with the following: Hospitalist: DR Ubaldo fletcher cp admit after discussion. 05/04 15:32 Order name: Blood Culture Adult (2) 05/04 15:32 Order name: CBC with Diff; Complete Time: 17:24 05/04 17:24 Interpretation: Normal except: RBC 3.58; HGB 11.1; HCT 34.1; MPV 7.3; MIKAEL% 76.3; LYM% cp 11.6. 05/04 15:32 Order name: CMP; Complete Time: 17:24 05/04 17:25 Interpretation: Normal except: GLUC 126; BUN 31; CRE 1.81; GFR 37; AST < 10; ALT < 14; cp ALB 2.8; GLOB 5.3; A/G 0.5. 05/04 15:32 Order name: Lactate w/ 2H reflex if indic.; Complete Time: 17:24 05/04 15:32 Order name: Protime (+inr); Complete Time: 17:24 05/04 15:32 Order name: Ptt, Activated; Complete Time: 17:24 05/04 15:32 Order name: Urinalysis w/ reflexes; Complete Time: 18:18 05/04 18:19 Interpretation: Normal except: [facility] Extremely Turbid; UBLD Trace; UESTR 500; UWBC >50; cp UWBC Clump Occasional; BYST Moderate. 05/04 15:32 Order name: CRP; Complete Time: 17:24 05/04 16:38 Order name: Wound Culture 05/04 18:01 Order name: Urine Culture EDCT 05/04 18:36 Order name: Urinalysis w/ reflexes EDCT 05/04 18:36 Order name: CBC with Automated Diff EDCT 05/04 18:36 Order name: CBC with Automated Diff EDCT 05/04 18:36 Order name: Comprehensive Metabolic Panel EDCT 05/04 18:36 Order name: Comprehensive Metabolic Panel [facility] 05/04 15:32 Order name: Chest Single View XRAY; Complete Time: 17:24 05/04 15:32 Order name: XRAY Foot RIGHT 3 View; Complete Time: 18:18 05/04 18:36 Order name: CONS Physician Consult EDCT 05/04 15:32 Order name: Accucheck; Complete Time: 17:20 cp 05/04 15:32 Order name: Cardiac monitoring; Complete Time: 17:20 05/04 15:32 Order name: EKG - Nurse/Tech; Complete Time: 17:20 05/04 15:32 Order name: IV Saline Lock - Large Bore; Complete Time: 17:20 cp 05/04 15:32 Order name: Labs collected and sent; Complete Time: 17:20 05/04 15:32 Order name: O2 Per Protocol; Complete Time: 17:20 05/04 15:32 Order name: O2 Sat Monitoring; Complete Time: 17:20 05/04 15:32 Order name: Vital Signs; Complete Time: 17:20 cp EC:58 Rate is 59 beats/min. Rhythm is regular. TX interval is prolonged at 228 msec. QRS cp interval is prolonged at 138 msec. QT interval is normal. T waves are Inverted in lead aVR. Interpreted by me. Reviewed by me. Administered Medications: 18:20 Drug: Cefepime IVPB 1 grams IVPB at 200 ml/hr once over 30 mins; (mix in NS 100 mL) rs5 Route: IVPB; Rate: 200 ml/hr; Infused Over: 30 mins; Site: right antecubital; 18:39 Drug: vancoMYCIN IVPB 1 grams IVPB once over 2 hrs Route: IVPB; Infused Over: 2 hrs; rs5 Site: right antecubital; 19:58 Follow up: IV Status: Infusion continued upon admission cp4 Disposition Summary: 05/04/24 18:20 Hospitalization Ordered Notes: Hospitalization Status: Inpatient Admission cp Provider: Ede Conner cp Location: Telemetry/MedSurg (Inpatient) cp Condition: Stable cp Problem: an ongoing problem cp Symptoms: are unchanged cp Bed/Room Type: Standard cp Room Assignment: 206(05/04/24 18:53) bd Diagnosis - Cellulitis of right lower limb cp - UTI/ Urinary tract infection, site not specified cp Forms: - Medication Reconciliation Form cp - SBAR form cp - Leadership Thank You Letter cp Signatures: Dispatcher [employer] EDMS Dirrim, Yadira bd Delmis Lincoln RN RN iw Kyree Villatoro PA PA cp Cristian Valladares RN RN rs5 Matilda Loredo cp4 Corrections: (The following items were deleted from the chart) 15:32 15:32 BLOOD CULTURE*+BA.LAB.BRZ ordered. EDMS EDMS 15:32 15:32 CBC+H.LAB.BRZ ordered. EDMS EDMS 15:32 15:32 COMPREHENSIVE METABOLIC PANEL+C.LAB.BRZ ordered. EDMS EDMS 15:32 15:32 LACTATE+C.LAB.BRZ ordered. EDMS EDMS 15:32 15:32 PROTIME (+INR)+COAG.LAB.BRZ ordered. EDMS EDMS 15:32 15:32 PTT, ACTIVATED+COAG.LAB.BRZ ordered. EDMS EDMS 15:32 15:32 Urinalysis+U.LAB.BRZ ordered. EDMS EDMS 15:32 15:32 C-REACTIVE PROTEIN+C.LAB.BRZ ordered. EDMS EDMS 15:33 15:33 Chest Single View+RAD.RAD.BRZ ordered. EDMS EDMS 15:33 15:33 Foot Right 3 View+RAD.RAD.BRZ ordered. EDMS EDMS 16:39 16:38 Wound Culture+BA.LAB.BRZ ordered. EDMS EDMS 18:53 18:20 cp bd 05/05 18:14 05/04 15:33 Constitutional: Negative for body aches, chills, fever, poor PO intake, cp cp 05/05 18:14 05/04 15:33 Constitutional: hx per hpi cp cp 05/05 18:14 05/04 15:33 Neuro: Negative for altered mental status, dizziness, weakness, cp cp 05/05 18:14 05/04 15:33 Cardiovascular: Negative for chest pain, palpitations, cp cp 05/05 18:14 05/04 15:33 Abdomen/GI: Negative for abdominal pain, nausea, vomiting, and diarrhea, cp cp 05/05 18:14 05/04 15:33 All other systems are negative, cp cp 05/05 18:19 05/04 15:35 Patient is a 83-year-old male with a past medical history significant for cp diabetes, kidney disease, and hypertension who presents to the emergency department after being sent over by wound care. Patient has a chronic wound to his right foot was at wound care today who became concerned about it appearing worse and not healing. cp
--- NOTE | 2024-05-04 18:21 | ER ---
Nurse's Notes [facility] Name: Yeyo Pelayo Age: 83 yrs Sex: Male : 1940 Arrival Date: 05/04/2024 Time: 15:02 Bed 19 Private MD: Diagnosis: Cellulitis of right lower limb;UTI/ Urinary tract infection, site not specified Presentation: 05/04 15:22 Chief complaint: Patient states: amputation of second to last toe on right foot in iw February. Wound has not healed, has drainage. Coronavirus screen: Vaccine status: Patient reports receiving the 2nd dose of the covid vaccine. Ebola Screen: Patient negative for fever greater than or equal to 101.5 degrees Fahrenheit, and additional compatible Ebola Virus Disease symptoms Patient denies exposure to infectious person. Patient denies travel to an Ebola-affected area in the 21 days before illness onset. No symptoms or risks identified at this time. Initial Sepsis Screen: Does the patient meet any 2 criteria? No. Patient's initial sepsis screen is negative. Does the patient have a suspected source of infection? No. Patient's initial sepsis screen is negative. Risk Assessment: Do you want to hurt yourself or someone else? Patient reports no desire to harm self or others. Onset of symptoms is unknown. 15:22 Method Of Arrival: Wheelchair 15:22 Acuity: KEN 3 iw Triage Assessment: 15:23 General: Appears in no apparent distress. Behavior is calm, cooperative. Pain: iw Complains of pain in right foot Pain currently is 1 out of 10 on a pain scale. EENT: No signs and/or symptoms were reported regarding the EENT system. Neuro: Level of Consciousness is awake, alert, obeys commands, Oriented to person, place, time, situation. Cardiovascular: Patient's skin is warm and dry. Respiratory: Airway is patent Respiratory effort is even, unlabored, Respiratory pattern is regular, symmetrical. GI: No signs and/or symptoms were reported involving the gastrointestinal system. Abdomen is flat, non-distended. : No signs and/or symptoms were reported regarding the genitourinary system. Derm: Reports non healing wound on right foot. Musculoskeletal: No signs and/or symptoms reported regarding the musculoskeletal system. 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 - Infectious Disease History:: Denies. - Social history:: Smoking status: Patient denies any tobacco usage or history of. Screenin:30 [facility] ED Fall Risk Assessment (Adult) History of falling in the last 3 months, rs5 including since admission No falls in past 3 months (0 pts) Confusion or Disorientation No (0 pts) Intoxicated or Sedated No (0 pts) Impaired Gait No (0 pts) Mobility Assist Device Used No (0 pt) Altered Elimination No (0 pt) Score/Fall Risk Level 0 - 2 = Low Risk Oriented to surroundings, Maintained a safe environment. Abuse screen: Denies threats or abuse. Nutritional screening: No deficits noted. Tuberculosis screening: No symptoms or risk factors identified. Assessment: 15:27 General: Appears in no apparent distress. comfortable, Behavior is calm, cooperative. rs5 Pain: Denies pain. Neuro: Level of Consciousness is awake, alert, obeys commands, Oriented to person, place, time, situation. Cardiovascular: Patient's skin is warm and dry. Respiratory: Airway is patent Respiratory effort is even, unlabored, Respiratory pattern is regular, symmetrical. GI: Abdomen is round non-distended, Abd is soft and non tender X 4 quads. : No signs and/or symptoms were reported regarding the genitourinary system. EENT: No signs and/or symptoms were reported regarding the EENT system. Derm: Skin is intact, Skin is pink, warm \T\ dry. one inch wound noted to right foot laterally, no blood or drainage noted. Musculoskeletal: Amputation of fourth toe on right foot. Circulation, motion, and sensation intact. 16:33 Reassessment: Patient and/or family updated on plan of care and expected duration. Pain rs5 level reassessed. Patient is alert, oriented x 3, equal unlabored respirations, skin warm/dry/pink. 17:40 Reassessment: No changes from previously documented assessment. rs5 18:41 Reassessment: No changes from previously documented assessment. rs5 19:56 Reassessment: Patient stated he was going to change into gown upstairs. cp4 Vital Signs: 15:21 BP 131 / 76; Pulse 67; Resp 19; Temp 98.6(O); Pulse Ox 100% on R/A; Weight 72.57 kg; iw Height 6 ft. 1 in. ; Pain /; 17:01 BP 137 / 80; Pulse 71; Resp 17; Pulse Ox 99% on R/A; rs5 17:01 BP 140 / 74; Pulse 75; Resp 17; Pulse Ox 98% on R/A; rs5 19:00 BP 179 / 72; Pulse 72; Resp 18; Pulse Ox 98% ; cp4 15:21 Body Mass Index 21.11 (72.57 kg, 185.42 cm) iw 15:21 Pain Scale: Adult iw ED Course: 15:04 Patient arrived in ED. mg5 15:11 Kyree Villatoro PA is PHCP. cp 15:11 Kyree Cox MD is Attending Physician. cp 15:23 Triage completed. iw 15:23 Arm band placed on right wrist. iw 15:30 Patient has correct armband on for positive identification. Placed in gown. Bed in low rs5 position. Call light in reach. Side rails up X2. 16:29 Cristian Valladares, RN is Primary Nurse. rs5 16:44 Chest Single View XRAY In Process Unspecified. EDMS 16:44 XRAY Foot RIGHT 3 View In Process Unspecified. EDMS 18:19 Ede Conner MD is Hospitalizing Provider. cp 20:01 Provided Education on: admission. cp4 20:01 No provider procedures requiring assistance completed. Patient admitted, IV remains in cp4 place. Administered Medications: 18:20 Drug: Cefepime IVPB 1 grams IVPB at 200 ml/hr once over 30 mins; (mix in NS 100 mL) rs5 Route: IVPB; Rate: 200 ml/hr; Infused Over: 30 mins; Site: right antecubital; 18:39 Drug: vancoMYCIN IVPB 1 grams IVPB once over 2 hrs Route: IVPB; Infused Over: 2 hrs; rs5 Site: right antecubital; 19:58 Follow up: IV Status: Infusion continued upon admission cp4 Medication: 18:42 VIS not applicable for this client. rs5 Outcome: 18:20 Decision to Hospitalize by Provider. cp 20:01 Admitted to [facility]/surg accompanied by tech, via wheelchair, with chart, cp4 20:01 Condition: stable 20:01 Instructed on the need for admit, 20:02 Patient left the ED. cp4 Signatures: Dispatcher [employer] EDDelmis Chance, RN Kyree Correa PA PA cp Sotelo, Ricky, RN RN rs5 Juana Ware 5 Matilda Loredo cp4
[2024-05-04] MEDS ORDERED: VANCOMYCIN 1 GM/VIAL ONE (18:29)
[2024-05-04] MEDS ORDERED: CEFAZOLIN SODIUM 1 GM/VIAL ONE (18:30)
[2024-05-04] MEDS ORDERED: ACETAMINOPHEN 325 MG TABLET PO PRN (18:30)
[2024-05-04] MEDS ORDERED: NA CHLORIDE 0.9% 250 ML ONE (18:30)
[2024-05-04] MEDS ORDERED: ONDANSETRON 4 MG/2 ML VIAL IV PRN (18:30)
[2024-05-04] MEDS ORDERED: NA CHLORIDE 0.9% 100 ML ONE (18:30)
--- NOTE | 2024-05-04 18:34 | P.HP ---
Certification for Inpatient Patient admitted to: Inpatient With expected LOS: >2 Midnights Practitioner: I am a practitioner with admitting privileges, knowledge of patient current condition, hospital course, and medical plan of care. Services: Services provided to patient in accordance with Admission requirements found in Title 42 Section 412.3 of the Code of Federal Regulations Patient History Date of Service: 05/04/24 Reason for admission: Pain in the Right Foot History of Present Illness: 83 yo male with past medical history of Diabetes ,Hypertension, Kidney stone, chronic kidney disease stage II, peripheral artery disease, amputation of second to last toe on the right foot, history of stenting artery brought to ER with pain of right foot. Started 3 weeks ago and has been slowly progressively worsening. Denies any fever or chills. No sick contacts. No trauma. Patient was assessed in the ER and was found to have possible osteomyelitis of the foot and was admitted for further management and surgical consult Allergies No Known Drug Allergies Allergy (Verified 05/04/24 20:22) Unknown Home medications list reviewed: Yes Home Medications: LORazepam [Ativan*] 1 mg PO TIDP PRN 03/06/24 Amlodipine [Norvasc*] 10 mg PO DAILY 30 Days #30 tab 03/08/24 Hydrocodone 10/APAP 325 [[place] 10/325] 1 tab PO Q6H PRN #30 tab 03/08/24 Metoprolol Tartrate [Lopressor*] 25 mg PO BID 6AM 6PM 30 Days #60 tab 03/08/24 Atorvastatin Calcium [Lipitor] 20 mg PO BEDTIME 05/04/24 Clopidogrel Bisulfate [Plavix] 75 mg PO DAILY 05/04/24 Glimepiride 1 mg PO TID 05/04/24 - Past Medical/Surgical History Diabetic: Yes Past Medical History: Reviewed- Non-Contributory -: Hypertension -: Type 2 diabetes -: Nephrolithiasis -: CKD 3 -: Anxiety -: Gout -: Current UTI Dx 02/28 currently day 6 of Levaquin p.o. Past Surgical History: Reviewed- Non-Contributory -: urethral stent placement -: cystoscopy -: hernia repair Psychosocial/ Personal History: Retired, lives at home with his - Family History Family History: Reviewed- Non-Contributory - Family History Mother -: Hypertension Notes: alzheimers Father -: Cancer Notes: colon - Social History Smoking Status: Never smoker Alcohol use: No CD- Drugs: No Caffeine use: Yes Review of Systems 10-point ROS is otherwise unremarkable Physical Examination - Vital Signs Temperature: 98.6 F Blood Pressure: 131/76 Pulse: 78 Respirations: 18 Pulse Ox (%): 96 - Physical Exam General: Alert, In no apparent distress, Oriented x3 HEENT: Atraumatic, Normocephalic Neck: Supple, 2+ carotid pulse no bruit Respiratory: Clear to auscultation bilaterally, Normal air movement Cardiovascular: Normal pulses, Regular rate/rhythm, Normal S1 S2 Capillary refill: <2 Seconds Gastrointestinal: Soft and benign, W/out hepatosplenomegaly Musculoskeletal: No clubbing, No swelling, Erythema, Tenderness, Warmth Integumentary: Tenderness/swelling, Erythema, Warmth Neurological: Normal strength at 5/5 x4 extr, Normal tone, Cranial nerves 3-12 intact Lymphatics: No axilla or inguinal lymphadenopathy - Studies Laboratory Data (last 24 hrs) 05/04/24 05/04/24 05/04/24 16:45 16:45 16:45 WBC 8.10 Hgb 11.1 L Hct 34.1 L Plt Count 271 PT 12.7 H INR 1.14 APTT 33.0 Sodium 137 Potassium 3.8 BUN 31 H Creatinine 1.81 H Glucose 126 H Total Bilirubin 0.3 AST < 10 L ALT < 14 L Alkaline Phosphatase 97 Imagings Data: Amputation fourth digit. Bony destruction 4th metatarsal head and neck likely osteomyelitis Cortical irregularity fifth metatarsal head and base of the fifth proximal phalanx equivocal for additional osteomyelitis No fracture or dislocation Assessment and Plan - Plan Osteomyelitis right foot X-ray findings noted Bony destruction 4th metatarsal head and neck likely osteomyelitis Cortical irregularity fifth metatarsal head and base of the fifth proximal phalanx equivocal for additional osteomyelitis No fracture or dislocation IV antibiotic Pain control Surgical consult Hypertension Antihypertensives titrated Continue home medications and titrate as needed Hyperlipidemia Continue statin Diabetes Insulin sliding scale Accu-Chek before every meal and at bedtime Peripheral artery disease Status post stenting Will hold antiplatelets for now Will restart postoperatively if needed GI/DVT prophylaxis Advanced directive full code Discharge Plan: Home Plan to discharge in: 72 Hours - Advance Directives Does patient have a Living Will: No Does patient have a Durable POA for Healthcare: No - Code Status/Comfort Care Code Status: Full Code Time Spent Managing Pts Care (In Minutes): 48
[2024-05-04 20:42] VITALS: BMI 19.5
[2024-05-04] MEDS: NA CHLORIDE 0.9% 1,000 ML IV SCH (21:02)
[2024-05-04] MEDS: VANCOMYCIN 1 GM in NA CHLORIDE 0.9% 250 ML IVPB SCH (21:40)
[2024-05-04] MEDS: CEFEPIME 1 GM in NA CHLORIDE 0.9% 100 ML IV SCH (22:16)
[2024-05-04 22:20] LABS: Specific Gravity 1.009 (1.005-1.030); Sqamous Epithelial None Seen /HPF (None Seen); Urine Bacteria <20 /HPF (<20); Urine Bilirubin NEGATIVE (Negative); Urine Blood 1+ (Negative); Urine Clarity Extremely Turbid (Clear); Urine Color Colorless (Yellow); Urine Crystals Unidentified Few /HPF (None Seen); Urine Culture Reflex Order REFLEXED; Urine Glucose NEGATIVE (Negative); Urine Ketones NEGATIVE (Negative); Urine Microscopic Reflex YN ORDER UMIC; Urine Mucus Slight /HPF (None Seen); Urine Nitrite NEGATIVE (Negative); Urine Protein NEGATIVE (Negative); Urine Urobilinogen Normal (Normal); Urine WBC >50 /HPF (<5); Urine Yeast (Budding) Few /HPF (None Seen)
[2024-05-04] MEDS: LORAZEPAM 1 MG TABLET PO PRN (23:12)
[2024-05-04] MEDS: HYDROCODONE/APAP 10/325 TAB PO PRN (23:26)
[2024-05-05 04:56] LABS: Absolute Basophils 0.1 K/uL (0-0.5); Absolute Eosinophils 0.1 K/uL (0-0.5); Absolute Monocytes 0.8 K/uL (0.1-1.3); Absolute Neutrophil 4.5 K/uL (1.8-8.0); Basophils % 0.8 % (0-1.3); Eosinophils % 2.3 % (0-4.4); Hemoglobin 10.5 g/dL (13.6-17.9); Lymphocytes % 15.2 % (15.3-44.8); MCH 31.2 pg (27.0-35.0); MCHC 32.9 g/dL (32.0-36.0); MCV 94.8 fL (80-100); MPV 7.2 fL (7.6-11.3); Monocytes % 12.6 % (3.3-12.3); Neutrophils % 69.1 % (41.7-73.7); Platelets 248 thou/uL (152-406); RBC Red Blood Cell Count 3.38 M/uL (4.33-5.43)
[2024-05-05 05:18] LABS: Albumin 2.5 g/dL (3.4-5.0); Albumin/Globulin Ratio 0.5 (1.1-1.8); Alkaline Phosphatase 89 U/L (45-117); Anion Gap 6.5 mEq/L (5.0-15.0); BUN Blood Urea Nitrogen 24 mg/dL (7-18); Bicarbonate 27 mEq/L (21-32); Bilirubin Total 0.3 mg/dL (0.2-1.0); Globulin 4.6 g/dL (2.3-3.5); Glomerular Filtration Rate 49 ml/min (=/>90); Glucose Level 137 mg/dL (74-106); Potassium 3.5 mEq/L (3.5-5.1); Protein, Total 7.1 g/dL (6.4-8.2); Sodium Level 143 mEq/L (136-145)
[2024-05-05 05:19] LABS: ALT/SGPT < 14 U/L (16-61); AST/SGOT < 10 U/L (15-37)
[2024-05-05] MEDS: METOPROLOL TAR 25 MG TAB PO SCH (06:00)
[2024-05-05] MEDS: POTASSIUM CL SA 10 MEQ TAB PO ONE (09:14)
[2024-05-05] MEDS: AMLODIPINE 10 MG TAB PO SCH (09:14)
[2024-05-05] MEDS: ENOXAPARIN 40 MG/0.4 ML SQ SCH (09:15)
[2024-05-05] MEDS: Meropenem 1,000 MG in NA CHLORIDE 0.9% 100 ML IV SCH (10:33)
--- NOTE | 2024-05-05 12:17 | EKG ---
Test Date: 2024-05-04 Test Time: 16:53:14 Construction Equipment Overhauler: MASHA MEASUREMENT RESULTS: Intervals: Rate: 59 MD: 228 QRSD: 138 QT: 490 QTc: 485 [place]: P: 54 MD: 228 QRS: 16 T: 12 INTERPRETIVE STATEMENTS: Sinus bradycardia with 1st degree AV block Right bundle branch block Abnormal ECG Compared to ECG 03/06/2024 15:48:05 Sinus rhythm no longer present Electronically Signed On 05-05-24 12:16:08 CDT by Mariano Mccormack
[2024-05-05] MEDS: VANCOMYCIN 1 GM in NA CHLORIDE 0.9% 250 ML IVPB SCH (16:12)
--- NOTE | 2024-05-05 17:15 | P.PN ---
Subjective Date of Service: 05/05/24 Chief Complaint: Pain in the Right Foot Patient is complaining of increased pain in his right foot. No recorded fever. He denies any loss of appetite. He also complained of increased discharge from right fourth toe amputation stump. Physical Examination - Vital Signs Temperature: 97.4 F Blood Pressure: 154/68 Pulse: 66 Respirations: 16 Pulse Ox (%): 98 - Studies Laboratory Data (last 24 hrs) 05/04/24 05/04/24 16:45 16:45 PT 12.7 H INR 1.14 APTT 33.0 Sodium 137 Potassium 3.8 BUN 31 H Creatinine 1.81 H Glucose 126 H Total Bilirubin 0.3 AST < 10 L ALT < 14 L Alkaline Phosphatase 97 Microbiology Data (last 24 hrs): 05/04/24 17:20 Wound - Right Foot Gram Stain - Final Assessment And Plan - Plan Physical examination General: Alert and oriented x3, NAD, HEENT: Conjunctiva not pale, anicteric sclera Neck: Supple, no elevated JVD Heart: Heart sounds 1 and 2 normal, regular rhythm, normal rate, no pedal edema Lungs: Clear to auscultation bilaterally, adequate breath sounds bilaterally, no rhonchi or crackles. Abdomen: Soft, nondistended, nontender, normal bowel sounds. Extremities: No tenderness, no deformity Skin: Normal skin turgor, right foot-fourth toe amputation wound with copious discharge, wound at at the dorsum of the base of the right fifth toe with eschar. Neuro: No focal motor deficit. Normal speech. Psychiatry: Normal mood, no agitation. Osteomyelitis right foot Bony destruction 4th metatarsal head and neck likely osteomyelitis Cortical irregularity fifth metatarsal head and base of the fifth proximal phalanx equivocal for additional osteomyelitis No fracture or dislocation Continue IV antibiotics Dr. Toscano evaluated patient and planning surgery tomorrow. Analgesics as needed. Surgical consult Hypertension Resume home antihypertensive Diabetes type 2 Insulin sliding scale Accu-Chek before every meal and at bedtime Peripheral artery disease History of moderate peripheral arterial disease by recent arterial Doppler. Status post stenting Antiplatelets on hold for now in anticipation for surgery. DVT prophylaxis: Lovenox Advanced directive: full code
[2024-05-05] MEDS: ATORVASTATIN 20 MG TAB PO SCH (20:21)
[2024-05-05] MEDS ORDERED: VANCOMYCIN 1.25 GM in NA CHLORIDE 0.9% 250 ML IVPB SCH (22:00)
[2024-05-06 06:05] LABS: Anion Gap 10.4 mEq/L (5.0-15.0); Potassium 3.4 mEq/L (3.5-5.1)
--- NOTE | 2024-05-06 16:19 | P.PN ---
Subjective Date of Service: 05/06/24 Chief Complaint: Pain in the Right Foot Patient has no new complain No recorded fever. Physical Examination - Vital Signs Temperature: 99.2 F Blood Pressure: 155/71 Pulse: 76 Respirations: 19 Pulse Ox (%): 97 - Studies Microbiology Data (last 24 hrs): 05/04/24 17:20 Wound - Right Foot Gram Stain - Final 05/04/24 17:20 Wound - Right Foot Culture & Sensitivity - Final Pseudomonas Aeruginosa Citrobacter Braakii Assessment And Plan - Plan Physical examination General: Alert and oriented x3, NAD, HEENT: Conjunctiva not pale, anicteric sclera Neck: No elevated JVD Heart: Heart sounds 1 and 2 normal, regular rhythm, normal rate, no pedal edema Lungs: Clear to auscultation bilaterally, adequate breath sounds bilaterally, no rhonchi or crackles. Abdomen: Soft, nondistended, nontender, normal bowel sounds. Extremities: Right fourth toe amputation Skin: Normal skin turgor, right foot-fourth toe amputation wound with copious discharge, wound at at the dorsum of the base of the right fifth toe with eschar. Neuro: No focal motor deficit. Normal speech. Psychiatry: Dysphoric, no agitation. Assessment and plan Osteomyelitis right foot Bony destruction 4th metatarsal head and neck likely osteomyelitis Cortical irregularity fifth metatarsal head and base of the fifth proximal phalanx equivocal for additional osteomyelitis No fracture or dislocation Continue IV antibiotics Dr. Toscano evaluated patient and and surgery rescheduled for tomorrow, patient ate before surgery today. Analgesics as needed. Dr. Orellana have input appreciated. Hypertension Continue home antihypertensive Diabetes type 2 Insulin sliding scale Accu-Chek before every meal and at bedtime Peripheral artery disease History of moderate peripheral arterial disease by recent arterial Doppler. Status post stenting Antiplatelets on hold for now in anticipation for surgery. Vascular surgery consult. DVT prophylaxis: Lovenox Advanced directive: full code
[2024-05-06] MEDS ORDERED: VANCOMYCIN 1 GM in NA CHLORIDE 0.9% 250 ML IVPB SCH (17:00)
[2024-05-06] MEDS: VANCOMYCIN 1 GM in NA CHLORIDE 0.9% 250 ML IVPB SCH (17:11)
[2024-05-07 06:52] LABS: Anion Gap 8.5 mEq/L (5.0-15.0); Potassium 3.5 mEq/L (3.5-5.1)
[2024-05-07] MEDS: LIDOCAINE HCL/EPINEPHRINE 20 ML MDV ONE (09:08)
[2024-05-07] MEDS: NA CHLORIDE 0.9% 0 ML ONE (09:23)
[2024-05-07] MEDS: NA CHLORIDE 0.9% 500 ML ONE (09:26)
--- NOTE | 2024-05-07 10:22 | P.OP ---
Preoperative diagnosis: Multiple RIGHT foot Infected Wounds Postoperative diagnosis: Multiple RIGHT foot Infected Wounds Primary procedure: Debridement of Multiple RIGHT foot Infected Wounds Anesthesia: GETA + Local Estimated blood loss: <5cc Specimen: Debridement tissue x 2 regions Findings: Necrosis @ 4th web space, Necrosis / osteomyelitis of 5th metatarsal Complications: None Transferred to: Recovery Room Condition: Good
--- NOTE | 2024-05-07 10:28 | P.PN ---
Date of Service: 05/07/24 -Patient was originally scheduled for surgery yesterday however he opted for eating and as such the procedure was delayed until today. -I had discussed the surgical options which include amputation of fifth digit and full debridement of this area possible ray amputation however patient stated he wanted no amputations of toes at this point as he is had the fourth toe amputated before in the past he only wanted to submit to debridement and shaving of the bone as described he did not want a formal resection of bone or ray amputation and as such I discussed risk benefits alternatives of this plan include but not limited to bleeding infection damage mentation need further operation procedures including recurrence of infection and incomplete clearance of the infection possible patient displayed understanding above-stated plan and agreed to proceed with the plan as described above and would not agree to any other form of amputation at this time or more involved surgical procedure other than described above. Patient was amenable to shaving of the bone/bones of the foot
--- NOTE | 2024-05-07 11:06 | OP ---
Date of Procedure: 05/06/2024 Surgeon: Thomas Toscano MD, Preoperative Diagnosis: Multiple right infected foot wounds. Postoperative Diagnosis: Multiple right infected foot wounds. Procedure Performed: Debridement of multiple right foot infected wounds. Anesthesia: General endotracheal plus local, 1% lidocaine with epinephrine. Estimated Blood Loss: 5 cc. Specimens: Debrided tissue x2 regions of foot. First one at fourth web space, second one on the lat eral metatarsophalangeal joint. Findings: There was necrosis at the fourth web space and necrosis/osteomyelitis at the fifth metatar sophalangeal leading to proximal metatarsal area. Complications: None. Disposition: The patient was transferred to recovery room in good condition. Procedure In Detail: After informed consent was obtained, the patient was brought to the operating r oom, prepped and draped in the usual sterile fashion. After adequate anesthesia was achieved, I anes thetized the area of the fourth web space with additional 1% lidocaine as well as a fifth web metatar sophalangeal joint region proximal from the metatarsal head. I then used a combination of sharp diss ection predominantly to remove nonviable tissue from the fourth webspace, sent if off for pathologic examination. Culture was sent for both aerobic and anaerobic speciation as there was some cloudy rachel earance of this consistent with an infection. After this was completed, I reapproximated the plantar fascia overlying to protect the metatarsal head. The wound was then packed with Vashe soaked plain gauze. I then placed a vertical mattress stitch on the medial aspect to help reapproximate and prote ct the metatarsal head as well. I then turned my attention to the fifth metatarsophalangeal joint ar ea where an area of black necrosis was evident for approximately 2.5 cm x 2 cm. An elliptical orient ation took this down using sharp dissection and electrocautery, ultimately with the exposed bone bein g obvious with changes consistent with osteomyelitis. As such, I used a combination of rongeur and r asp to remove all nonviable and necrotic appearing bone in this area to smooth it out and bevel the e dges of it ultimately irrigating the area. Hemostasis was easily achieved with minimal electrocauter y at this point. There was a skin defect, not amenable to closure at this point. I then proceeded t o pack the wound at this point. The fourth web space was not closed and it was approximately 1 cm x 1 cm in size. After the sterile dressings were applied, patient tolerated the procedure without inci dent or complication, transferred to PACU in good condition. All counts were correct at the end of t he case. SAIMA Voice ID: [id number] Report ID: [id number]
--- NOTE | 2024-05-07 16:03 | P.PN ---
Subjective Date of Service: 05/07/24 Chief Complaint: Pain in the Right Foot Patient has no new complain. Status post right toe wounds debridement by Dr. Toscano 05/07. Physical Examination - Vital Signs Temperature: 97.6 F Blood Pressure: 166/75 Pulse: 72 Respirations: 18 Pulse Ox (%): 97 - Studies Microbiology Data (last 24 hrs): 05/04/24 17:20 Clean Catch Urine [place] Count - Final >100,000 CFU/ML. 05/04/24 17:20 Clean Catch Urine - Final Assessment And Plan - Plan Physical examination General: Alert and oriented x3, NAD, HEENT: Anicteric sclera Neck: No elevated JVD Heart: Heart sounds 1 and 2 normal, regular rhythm, normal rate, no pedal edema Lungs: Clear to auscultation bilaterally, adequate breath sounds bilaterally, no rhonchi or crackles. Abdomen: Soft, nondistended, nontender, normal bowel sounds. Extremities: Right fourth toe amputation Skin: Normal skin turgor, right foot-fourth toe amputation wound status postdebridement. Right foot dressed and in Aldo wrap. Neuro: No focal motor deficit. Normal speech. Psychiatry: no agitation. Assessment and plan Osteomyelitis right foot Bony destruction 4th metatarsal head and neck likely osteomyelitis Cortical irregularity fifth metatarsal head and base of the fifth proximal phalanx equivocal for additional osteomyelitis No fracture or dislocation. Status post debridement with removal of all necrotic and infected bone tissues per Dr. Toscano. Continue IV antibiotics. Oral antibiotics recommended by surgery on discharge. Analgesics as needed. Dr. Toscano plans to follow-up with patient as outpatient. Hypertension Continue home antihypertensive Diabetes type 2 Insulin sliding scale Accu-Chek before every meal and at bedtime. Home glimepiride is on hold. Peripheral artery disease History of moderate peripheral arterial disease by recent arterial Doppler. Status post stenting Antiplatelets on hold for now in anticipation for surgery. Vascular surgery consulted. Dr. Izquierdo informed. Patient would like to follow-up with vascular surgery as outpatient. DVT prophylaxis: Lovenox Advanced directive: full code
[2024-05-07 21:14] VITALS: O2SAT 94
[2024-05-08 04:30] VITALS: TEMP 98.1
--- NOTE | 2024-05-08 11:25 | P.DS ---
Admission Date: 05/04/24 Discharge Date: 05/08/24 Disposition: ROUTINE DISCHARGE Discharge Condition: FAIR Reason for Admission: Pain in the Right Foot Brief History of Present Illness: 83 yo male with past medical history of Diabetes ,Hypertension, Kidney stone, chronic kidney disease stage II, peripheral artery disease, amputation of second to last toe on the right foot about 2 months ago, was brought to ER with pain of right foot. Patient reported the amputation stump wound was not healing and he saw a lot of discharge coming from the wound. He denied any trauma. Patient was assessed in the ER, imaging suggested for 5th and 4th toe phalanges and metatarsal involvement bony changes. General surgery Dr. Toscano was consulted and patient hospitalized for further management. Hospital Course: Patient admitted to the medical floor and the following medical problems addressed: Osteomyelitis right foot/nonhealing infected right fourth toe amputation wound Bony destruction 4th metatarsal head and neck likely osteomyelitis Cortical irregularity fifth metatarsal head and base of the fifth proximal phalanx equivocal for additional osteomyelitis No fracture or dislocation. Status post debridement with removal of all necrotic and infected bone tissues per Dr. Toscano. Patient treated with antibiotics. Oral antibiotics recommended by surgery on discharge. Analgesics as needed. Dr. Toscano plans to follow-up with patient as outpatient next week. Patient request to go home. Wound culture has grown Pseudomonas and Citrobacter are sensitive to Levaquin. He is discharged with oral Levaquin. Wound care instructions and nonweightbearing status provided. High risk of noncompliance with nonweightbearing, so patient will need to wear pressure reduction boot. Hypertension Continued home antihypertensive Diabetes type 2 Held home glimepiride and manage blood sugar with insulin sliding scale during the hospital stay. Home dose glimepiride resumed on discharge Peripheral artery disease History of moderate peripheral arterial disease by recent arterial Doppler. Patient states he does not remember any vascular procedure on his leg. Resume antiplatelet Vascular surgery consulted. Dr. Izquierdo informed who plan to see patient in the hospital but prefers to see Dr. Izquierdo as outpatient. Vital Signs/Physical Exam: Temp Pulse Resp BP Pulse Ox 98.1 F 57 16 135/61 100 05/08/24 08:00 05/08/24 08:00 05/08/24 08:00 05/08/24 08:00 05/08/24 08:00 General: Alert, In no apparent distress, Oriented x3 HEENT: Mucous membr. moist/pink Neck: JVD not distended Respiratory: Clear to auscultation bilaterally, Normal air movement Cardiovascular: No edema, Regular rate/rhythm Gastrointestinal: Soft and benign, Non-distended Musculoskeletal: Other (Right fourth toe amputation) Integumentary: Other (Clean right foot wound dressing.) Neurological: Normal strength at 5/5 x4 extr, Cranial nerves 3-12 intact Laboratory Data at Discharge: WBC 6.50 thou/uL (4.3-10.9) 05/05/24 04:24 Hgb 10.5 g/dL (13.6-17.9) L 05/05/24 04:24 Hct 32.0 % (39.6-49.0) L 05/05/24 04:24 Plt Count 248 thou/uL (152-406) 05/05/24 04:24 PT 12.7 SECONDS (9.4-12.5) H 05/04/24 16:45 INR 1.14 05/04/24 16:45 APTT 33.0 SECONDS (24.3-36.9) 05/04/24 16:45 Sodium 142 mEq/L (136-145) 05/07/24 06:30 Potassium 3.5 mEq/L (3.5-5.1) 05/07/24 06:30 BUN 22 mg/dL (7-18) H 05/07/24 06:30 Creatinine 1.18 mg/dL (0.70-1.30) 05/07/24 06:30 Glucose 107 mg/dL (74-106) H 05/07/24 06:30 Total Bilirubin 0.3 mg/dL (0.2-1.0) 05/05/24 04:24 AST < 10 U/L (15-37) L 05/05/24 04:24 ALT < 14 U/L (16-61) L 05/05/24 04:24 Alkaline Phosphatase 89 U/L (45-117) 05/05/24 04:24 Home Medications: LORazepam [Ativan*] 1 mg PO TIDP PRN 03/06/24 Amlodipine [Norvasc*] 10 mg PO DAILY 30 Days #30 tab 03/08/24 Metoprolol Tartrate [Lopressor*] 25 mg PO BID 6AM 6PM 30 Days #60 tab 03/08/24 Atorvastatin Calcium [Lipitor*] 20 mg PO BEDTIME 05/04/24 Clopidogrel Bisulfate [Plavix] 75 mg PO DAILY 05/04/24 Glimepiride 1 mg PO TID 05/04/24 Fluconazole [Diflucan] 200 mg PO DAILY #7 tab 05/08/24 Hydrocodone 10/APAP 325 [[place] 10/325*] 1 tab PO Q6H PRN #20 tab 05/08/24 levoFLOXacin [Levaquin] 750 mg PO DAILY #10 tab 05/08/24 New Medications: Fluconazole [Diflucan] 200 mg PO DAILY #7 tab levoFLOXacin [Levaquin] 750 mg PO DAILY #10 tab Hydrocodone 10/APAP 325 [[place] 10/325*] 1 tab PO Q6H PRN #20 tab PRN Reason: Pain Physician Discharge Instructions: Wound care: Daily dressing changes: remove all dressings, then irrigate with saline, then repack with 1/4" gauze damp to dry with Vashe then damp to dry gauze on lateral foot with vashe, wrap and elevate. Please teach family member wound care instructions. Diet: ADA Activity: Fall precautions Followup: Shaneka SANDHU,Lalo Huber DO [Primary Care Provider] - 1-2 Weeks Jaxon Izquierdo MD [ACTIVE - CAN ADMIT] - 1 Week (Vascular surgery) Thomas Toscano MD [ACTIVE - CAN ADMIT] - 1 Week Time spent managing pt's care (in minutes): 36
[2024-05-08 12:25] VITALS: BP 136/56
== END 2024-05-08 12:53 | disposition home health service (06) | DRG 264 ==
LOC: ER 15:02 → 2ND 18:30
PROVIDERS: ADMIT Family Medicine; ATTEND Internal Medicine
PROC: 0JBQ0ZZ Excision of Right Foot Subcutaneous Tissue and Fascia, Open Approach (ICD-10-PCS; principal; 2024-05-06)
DX: E11.52 Type 2 diabetes mellitus with diabetic peripheral angiopathy with gangrene (principal); L03.115 Cellulitis of right lower limb; N39.0 Urinary tract infection, site not specified; M86.171 Other acute osteomyelitis, right ankle and foot; E11.69 Type 2 diabetes mellitus with other specified complication; I12.9 Hypertensive chronic kidney disease with stage 1 through stage 4 chronic kidney disease, or unspecified chronic kidney disease; N18.2 Chronic kidney disease, stage 2 (mild); E11.22 Type 2 diabetes mellitus with diabetic chronic kidney disease; M10.9 Gout, unspecified; E78.5 Hyperlipidemia, unspecified; Z79.02 Long term (current) use of antithrombotics/antiplatelets; Z89.421 Acquired absence of other right toe(s); Z79.899 Other long term (current) drug therapy
CPT/HCPCS: 36415; 71045; 80048; 80053; 80202; 81001; 82947; 83605; 85025; 85610; 85730; 86140; 87040; 87070; 87075; 87077; 87086; 87088; 87186; 87205; 88304; 93005; 94760; 96365; 96375; 99285; J0690; J0692; J1650; J2185; J7030; J7040; J7050

== ENCOUNTER 2024-07-06 09:57 | Emergency (ER) | payer OTHER ==
[2024-07-06] MEDS ORDERED: NA CHLORIDE 0.9% 500 ML ONE (11:59)
[2024-07-06 12:16] LABS: Absolute Basophils 0.1 K/uL (0-0.5); Absolute Eosinophils 0.1 K/uL (0-0.5); Absolute Monocytes 0.6 K/uL (0.1-1.3); Absolute Neutrophil 5.7 K/uL (1.8-8.0); Basophils % 0.7 % (0-1.3); Eosinophils % 0.8 % (0-4.4); Hematocrit 37.1 % (39.6-49.0); Hemoglobin 12.2 g/dL (13.6-17.9); Lymphocytes % 13.4 % (15.3-44.8); MCH 30.2 pg (27.0-35.0); MCHC 32.9 g/dL (32.0-36.0); MCV 91.9 fL (80-100); MPV 7.2 fL (7.6-11.3); Monocytes % 7.8 % (3.3-12.3); Neutrophils % 77.3 % (41.7-73.7); Platelets 276 thou/uL (152-406); RBC Red Blood Cell Count 4.04 M/uL (4.33-5.43); Red Cell Distribution Width 14.2 % (12.1-15.2)
--- NOTE | 2024-07-06 12:53 | RAD REPORT ---
Exam:Foot Right 3 View CLINICAL HISTORY: Right foot pain FINDINGS: Destruction of most of the fifth metatarsal and base of the fifth proximal phalanx. Destruction of the fourth metatarsal head and neck. Erosions third metatarsal head.. All of this likely represents osteomyelitis
--- NOTE | 2024-07-06 12:56 | ER ---
Nurse's Notes [facility] Name: Yeyo Pelayo Age: 83 yrs Sex: Male : 1940 Arrival Date: 07/06/2024 Time: 09:57 Bed 2 Private MD: Diagnosis: Disruption of wound, unspecified-right foot, chronic Presentation: 07/06 10:15 Chief complaint: Patient states: R foot infection since April. Home health nurse ll1 told him to come into ED for worsening infection and evaluation by Dr. Toscano. Coronavirus screen: Client denies travel out of the [place] in the last 14 days. At this time, the client does not indicate any symptoms associated with coronavirus-19. Ebola Screen: Patient denies travel to an Ebola-affected area in the 21 days before illness onset. Initial Sepsis Screen: Does the patient meet any 2 criteria? No. Patient's initial sepsis screen is negative. Does the patient have a suspected source of infection? No. Patient's initial sepsis screen is negative. Risk Assessment: Do you want to hurt yourself or someone else? Patient reports no desire to harm self or others. Onset of symptoms was April 17, 2024. 10:15 Method Of Arrival: Wheelchair ll1 10:15 Acuity: KEN 3 ll1 Triage Assessment: 10:15 General: Appears uncomfortable, Behavior is calm, cooperative, appropriate for age. ll1 Pain: Complains of pain in right foot. Derm: Decubitus located on right foot. Musculoskeletal: Reports pain in right foot. 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 - Infectious Disease History:: Denies. - Social history:: Smoking status: Patient denies any tobacco usage or history of. Screenin:00 [facility] ED Fall Risk Assessment (Adult) History of falling in the last 3 months, ko1 including since admission No falls in past 3 months (0 pts) Confusion or Disorientation No (0 pts) Intoxicated or Sedated No (0 pts) Impaired Gait No (0 pts) Mobility Assist Device Used No (0 pt) Altered Elimination No (0 pt) Score/Fall Risk Level 0 - 2 = Low Risk Oriented to surroundings, Maintained a safe environment, Educated pt \T\ family on fall prevention, incl call for assistance when getting out of bed, Assessed \T\ reinforced patient's understanding of fall precautions, Provided non-skid footwear, Hourly rounding (assess needs \T\ fall precautionary measures) done. Abuse screen: Denies threats or abuse. Denies injuries from another. Nutritional screening: No deficits noted. Tuberculosis screening: No symptoms or risk factors identified. Assessment: 12:00 General: Appears in no apparent distress. Behavior is calm, cooperative, appropriate ko1 for age. Pain: Complains of pain in right foot. Neuro: No deficits noted. Cardiovascular: No deficits noted. Respiratory: No deficits noted. GI: No deficits noted. : No deficits noted. EENT: No deficits noted. Derm: Wound noted arch of right foot and lateral side of right foot. Musculoskeletal: No deficits noted. 13:12 Reassessment: awaiting wound care supplies to discharge patient. ko1 Vital Signs: 10:15 BP 124 / 61; Pulse 54; Resp 16; Temp 97.5; Pulse Ox 100% on R/A; Weight 84.37 kg; ll1 Height 6 ft. 1 in. ; Pain 7/10; 12:00 BP 164 / 53; Pulse 60; Resp 15; Pulse Ox 99% ; ko1 10:15 Body Mass Index 24.54 (84.37 kg, 185.42 cm) ll1 10:15 Pain Scale: Adult ll1 ED Course: 10:01 Patient arrived in ED. mr 10:10 Kyree Cox MD is Attending Physician. juana 10:15 Arm band placed on. ll1 10:17 Triage completed. ll1 10:59 Patient placed in an exam room, on a stretcher. ll1 12:00 Patient has correct armband on for positive identification. Bed in low position. Call ko1 light in reach. Side rails up X2. Provided Education on: wound care. Client placed on continuous cardiac and pulse oximetry monitoring. NIBP monitoring applied. cafeteria monitor on. Door closed. Noise minimized. Lights dimmed. Warm blanket given. Pillow given. 12:00 No provider procedures requiring assistance completed. ko1 12:01 Sarai Tobar, RN is Primary Nurse. ko1 12:14 CRP Sent. ko1 12:14 Comprehensive Metabolic Panel Sent. ko1 12:14 CBC with Diff Sent. ko1 12:49 Foot Right 3 View XRAY In Process Unspecified. EDHI 12:54 Thomas Toscano MD is Referral Physician. juana 13:11 IV discontinued, intact, bleeding controlled, No redness/swelling at site. Pressure ko1 dressing applied. 14:03 Dressings: Kerlix X 1; right foot 4X4s X 1; right foot. Wound care: to manager long term care ko1 located on lateral side of right foot was cleaned with with roberto garcia Patient tolerated well. Administered Medications: 12:14 Drug: NS 0.9% IV 500 ml 500 ml IV at 1 bolus once; to be given as a bolus over 30 ko1 minutes Volume: 500 ml; Route: IV; Rate: 1 bolus; Site: left antecubital; 13:01 Follow up: Response: No adverse reaction; IV Status: Completed infusion; IV Intake: ko1 500ml Medication: 12:00 VIS not applicable for this client. ko1 Intake: 13:01 IV: 500ml; Total: 500ml. ko1 Outcome: 12:56 Discharge ordered by MD. [facility] 13:59 Discharged to home via wheelchair, with family, ko1 13:59 Condition: stable 13:59 Discharge instructions given to patient, family, Instructed on discharge instructions, follow up and referral plans. wound care, Demonstrated understanding of instructions, follow-up care, wound care, 14:05 Patient left the ED. ko1 Signatures: Dispatcher [employer] EDHI Kyree Cox MD MD cha Rivera, Mary, Reg Reg Himanshu Joseph, RN RN ll1 Sarai Tobar, RN RN ko1
--- NOTE | 2024-07-06 12:56 | EDPHYS ---
Physician Documentation [facility] Name: Yeyo Pelayo Age: 83 yrs Sex: Male : 1940 Arrival Date: 07/06/2024 Time: 09:57 Bed 2 Private MD: ED Physician Kyree Cox HPI: 07/06 12:46 This 83 yrs old Male presents to ER via Wheelchair with complaints of Wound juana Infection. 12:46 The patient presents with decreased range of motion, a deformity, an injury, pain, juana swelling, tenderness. The complaints affect the right foot, lateral side of right foot and arch of right foot. Context: resulted from chronic wound. Modifying factors: The symptoms are alleviated by elevation of extremity, proper wound care. Associated signs and symptoms: The patient has no apparent associated signs or symptoms. Severity of symptoms: At their worst the symptoms were mild, moderate, in the emergency department the symptoms are unchanged. The patient has experienced similar episodes in the past, multiple times. 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 - Infectious Disease History:: Denies. - Social history:: Smoking status: Patient denies any tobacco usage or history of. ROS: 12:47 Constitutional: Negative for fever, chills, and weight loss, Eyes: Negative for injury, juana pain, redness, and discharge, ENT: Negative for injury, pain, and discharge, Neck: Negative for injury, pain, and swelling, Cardiovascular: Negative for chest pain, palpitations, and edema, Respiratory: Negative for shortness of breath, cough, wheezing, and pleuritic chest pain, Abdomen/GI: Negative for abdominal pain, nausea, vomiting, diarrhea, and constipation, Back: Negative for injury and pain, : Negative for injury, bleeding, discharge, and swelling, Skin: Negative for injury, rash, and discoloration, Neuro: Negative for headache, weakness, numbness, tingling, and seizure, Psych: Negative for depression, anxiety, suicide ideation, homicidal ideation, and hallucinations, Allergy/Immunology: Negative for hives, rash, and allergies, Endocrine: Negative for neck swelling, polydipsia, polyuria, polyphagia, and marked weight changes, Hematologic/Lymphatic: Negative for swollen nodes, abnormal bleeding, and unusual bruising, 12:47 MS/extremity: Positive for pain, swelling, tenderness, of the right foot, Exam: 12:47 Constitutional: This is a well developed, well nourished patient who is awake, alert, juana and in no acute distress. Head/Face: Normocephalic, atraumatic. Eyes: Pupils equal round and reactive to light, extra-ocular motions intact. Lids and lashes normal. Conjunctiva and sclera are non-icteric and not injected. Cornea within normal limits. Periorbital areas with no swelling, redness, or edema. ENT: Nares patent. No nasal discharge, no septal abnormalities noted. Tympanic membranes are normal and external auditory canals are clear. Oropharynx with no redness, swelling, or masses, exudates, or evidence of obstruction, uvula midline. Mucous membranes moist. Neck: Trachea midline, no thyromegaly or masses palpated, and no cervical lymphadenopathy. Supple, full range of motion without nuchal rigidity, or vertebral point tenderness. No Meningismus. Chest/axilla: Normal chest wall appearance and motion. Nontender with no deformity. No lesions are appreciated. Cardiovascular: Regular rate and rhythm with a normal S1 and S2. No gallops, murmurs, or rubs. Normal PMI, no JVD. No pulse deficits. Respiratory: Lungs have equal breath sounds bilaterally, clear to auscultation and percussion. No rales, rhonchi or wheezes noted. No increased work of breathing, no retractions or nasal flaring. Abdomen/GI: Soft, non-tender, with normal bowel sounds. No distension or tympany. No guarding or rebound. No evidence of tenderness throughout. Back: No spinal tenderness. No costovertebral tenderness. Full range of motion. Male : Normal genitalia with no discharge or lesions. Skin: Warm, dry with normal turgor. Normal color with no rashes, no lesions, and no evidence of cellulitis. Neuro: Awake and alert, GCS 15, oriented to person, place, time, and situation. Cranial nerves II-XII grossly intact. Motor strength 5/5 in all extremities. Sensory grossly intact. Cerebellar exam normal. Normal gait. Psych: Awake, alert, with orientation to person, place and time. Behavior, mood, and affect are within normal limits. 12:47 Musculoskeletal/extremity: ROM: full active range of motion, full passive range of motion, Circulation is intact in all extremities. Sensation intact. Compartment Syndrome exam of affected extremity: is normal. DVT Exam: negative Homans' sign noted on exam, no appreciated bluish discoloration, no erythema, no increased warmth, pain, swelling, tenderness, Vital Signs: 10:15 BP 124 / 61; Pulse 54; Resp 16; Temp 97.5; Pulse Ox 100% on R/A; Weight 84.37 kg; ll1 Height 6 ft. 1 in. ; Pain 7/10; 12:00 BP 164 / 53; Pulse 60; Resp 15; Pulse Ox 99% ; ko1 10:15 Body Mass Index 24.54 (84.37 kg, 185.42 cm) ll1 10:15 Pain Scale: Adult ll1 MDM: 10:10 Medical Screening Exam initiated juana 12:52 Differential diagnosis: sprain, arthritis, gout, cellulitis. Data reviewed: vital [facility] signs, nurses notes, lab test result(s), radiologic studies, plain films. Consideration of Admission/Observation Escalation of care including admission/observation considered. I considered the following discharge prescriptions or medication management in the emergency department Medications were administered in the Emergency Department. See MAR. Independent interpretation of the following test(s) in the Emergency Department X-Ray: My interpretation is right foot. Test considered but Not performed: MRI: no mri foot. Historians other than the Patient: Spouse/Significant Other: well informed. Care significantly affected by the following chronic conditions: Diabetes, Hypertension, Chronic Kidney Disease. Counseling: I had a detailed discussion with the patient and/or guardian regarding the historical points, exam findings, and any diagnostic results supporting the discharge/admit diagnosis, lab results, radiology results, the need for outpatient follow up, for definitive care, a family practitioner, a general surgeon. 07/06 11:50 Order name: CBC with Diff [facility] 07/06 11:50 Order name: Foot Right 3 View XRAY [facility] 07/06 12:46 Order name: Wound dressing: vashe,santyl, bulky bress; Complete Time: 13:59 juana Administered Medications: 12:14 Drug: NS 0.9% IV 500 ml 500 ml IV at 1 bolus once; to be given as a bolus over 30 ko1 minutes Volume: 500 ml; Route: IV; Rate: 1 bolus; Site: left antecubital; 13:01 Follow up: Response: No adverse reaction; IV Status: Completed infusion; IV Intake: ko1 500ml Disposition Summary: 07/06/24 12:56 Discharge Ordered Notes: Location: Home [facility] Problem: new juana Symptoms: have improved juana Condition: Stable juana Diagnosis - Disruption of wound, unspecified - right foot, chronic juana Followup: juana - With: Private Physician - When: 2 - 3 days - Reason: Recheck today's complaints, Continuance of care, Re-evaluation by your physician Followup: juana - With: Thomas Toscano MD - When: 2 - 3 days - Reason: Recheck today's complaints, Re-evaluation by your physician Discharge Instructions: - Discharge Summary Sheet juana - Delayed Wound Closure juana - Enzymatic Wound Debridement juana - Enzymatic Wound Debridement, Care After juana Forms: - Medication Reconciliation Form juana - Antibiotic Education juana - Prescription Opioid Use juana - Patient Portal Instructions [facility] - Leadership Thank You Letter [facility] Signatures: Dispatcher [employer] EDKyree Tan MD MD cha Lewis, Lynsay, RN RN ll1 Sarai Tobar, CACHORRO RN ko1 Corrections: (The following items were deleted from the chart) 11:50 11:50 Foot Right 3 View+RAD.RAD.BRZ ordered. EDMS EDMS 11:50 11:50 CBC+H.LAB.BRZ ordered. EDMS EDMS 11:50 11:50 COMPREHENSIVE METABOLIC PANEL+C.LAB.BRZ ordered. EDMS EDMS 11:50 11:50 C-REACTIVE PROTEIN+C.LAB.BRZ ordered. EDMS EDMS
[2024-07-06] MEDS ORDERED: COLLAGENASE 30 GM OINTMENT TOP ONE (13:30)
[2024-07-06 14:09] VITALS: TEMP 97.5
[2024-07-06 14:10] VITALS: BP 164/53; O2SAT 99
== END 2024-07-06 14:05 | disposition home or self-care (01) ==
LOC: ER 09:57
DX: T81.30XA Disruption of wound, unspecified, initial encounter (principal); Z89.421 Acquired absence of other right toe(s)
CPT/HCPCS: 85025; 73630; J3590; J7040

== ENCOUNTER 2024-07-18 11:08 | Inpatient (IN) | payer OTHER ==
--- NOTE | 2024-07-18 13:05 | RAD REPORT ---
EXAMINATION: XR Foot Right 3 View CLINICAL INDICATION: Male, 83 years old. [facility] MAIN osteo Bed Name: 3 TECHNIQUE: 3 view radiographs of the left foot were obtained. COMPARISON: No prior exam. FINDINGS: Stable extent of osseous destructive changes and deformities involving the distal aspects o f the fourth and fifth metatarsals as well as the head of the third metatarsal, and proximal aspects of the third and fifth proximal phalanges. Wound with soft tissue gas centered at the base of the fourth digit/webs, stable, with likely amputation of the fourth digit phalanges. Deformity at the tuft of the first digit distal phalanx. Overall, the findings are stable. Soft tissue defect melissa g the lateral forefoot and midfoot, also stable. No significant interval change. IMPRESSION: Stable osseous destructive changes involving the lateral 3 metatarsals and phalanges, again may indic ate ongoing osteomyelitis.
--- NOTE | 2024-07-18 13:06 | RAD REPORT ---
EXAMINATION: US RIGHT LOWER EXTREMITY VENOUS DOPPLER CLINICAL INDICATION: [facility] MAIN right Swelling;Pain Bed Name: IW3 N TECHNIQUE: Complete bilateral duplex sonography of the RIGHT lower extremity veins was performed. The examination included compression for vein patency, color Doppler imaging and flow augmentation in response to distal compression of the distal external iliac, common femoral, femoral, popliteal, tibi al, and great and small saphenous veins. COMPARISON: No prior exam. FINDINGS: Duplex sonography testing of the veins of the RIGHT lower extremity was performed. Color flow imaging shows all veins to be compressible with [id number] color filling. Pulsatile and phasic flow is present within all lower extremity deep and superficial veins examined. IMPRESSION: No evidence of deep venous thrombosis.
--- NOTE | 2024-07-18 13:08 | RAD REPORT ---
EXAMINATION: US Lower Extremity Artery Uni Ltd CLINICAL INDICATION: Male, 83 years old. [facility] MAIN leg Pain;Swelling Bed Name: 3 TECHNIQUE: Arterial duplex ultrasound was performed of the Right lower extremity with real-time, colo r-flow, and spectral wave Doppler evaluation. COMPARISON: No prior exam. FINDINGS: Moderate calcified plaque throughout the evaluated arterial system. Triphasic waveforms are seen onesimo ng the right LEARNING DESIGNER and SFA vessels, and monophasic waveforms along the remainder of the right lower extremity arterial system, to the level of the dorsalis pedis artery. Blunted upstroke along the righ t posterior tibial and dorsalis pedis arteries. No other suspicious findings. IMPRESSION: Moderate peripheral vascular disease, as above.
[2024-07-18 14:08] LABS: Absolute Basophils 0.1 K/uL (0-0.5); Absolute Eosinophils 0.1 K/uL (0-0.5); Absolute Monocytes 0.6 K/uL (0.1-1.3); Absolute Neutrophil 5.2 K/uL (1.8-8.0); Basophils % 0.8 % (0-1.3); Eosinophils % 1.4 % (0-4.4); Hematocrit 37.5 % (39.6-49.0); Hemoglobin 12.2 g/dL (13.6-17.9); Lymphocytes % 13.9 % (15.3-44.8); MCH 30.2 pg (27.0-35.0); MCHC 32.5 g/dL (32.0-36.0); MCV 92.8 fL (80-100); MPV 7.4 fL (7.6-11.3); Monocytes % 8.5 % (3.3-12.3); Neutrophils % 75.4 % (41.7-73.7); Platelets 302 thou/uL (152-406); RBC Red Blood Cell Count 4.04 M/uL (4.33-5.43); Red Cell Distribution Width 14.7 % (12.1-15.2)
[2024-07-18 14:26] LABS: AST/SGOT 11 U/L (15-37); Albumin/Globulin Ratio 0.6 (1.1-1.8); Alkaline Phosphatase 112 U/L (45-117); BUN Blood Urea Nitrogen 27 mg/dL (7-18); Bicarbonate 27 mEq/L (21-32); Bilirubin Total 0.3 mg/dL (0.2-1.0); Glomerular Filtration Rate 41 ml/min (=/>90); Glucose Level 224 mg/dL (74-106); Sodium Level 136 mEq/L (136-145)
[2024-07-18 14:28] LABS: ALT/SGPT < 14 U/L (16-61)
--- NOTE | 2024-07-18 15:19 | EDPHYS ---
Physician Documentation [facility] Name: Yeyo Pelayo Age: 83 yrs Sex: Male : 1940 Arrival Date: 07/18/2024 Time: 11:08 Bed 26 Private MD: ED Physician Marco Antonio Riley HPI: 07/18 13:50 This 83 yrs old Male presents to ER via Wheelchair with complaints of Wound Check. sb4 13:50 patient reports chronic wound on lateral right foot, has home health wound care sb4 everyday. has been hospitalized for this and had debridement done, by Dr. Toscano. recently finished a course of doxycycline. reports pain only if he hits it on the ground or against something. denies any known fevers. has history of non insulin dependent diabetes, does not check blood sugar daily. 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 - Infectious Disease History:: Denies. - Social history:: Smoking status: Patient denies any tobacco usage or history of. ROS: 13:50 Constitutional: Negative for fever, chills, and weight loss, sb4 13:53 Skin: Positive for chronic nonhealing wound right lateral foot, sb4 13:53 All other systems are negative, Exam: 15:20 Constitutional: This is a well developed, well nourished patient who is awake, alert, sb4 and in no acute distress. Head/Face: Normocephalic, atraumatic. Eyes: Extra-ocular motions intact. Periorbital areas with no swelling, redness, or edema. ENT: Mucous membranes moist. 15:20 Skin: Wound recheck: diabetic ulcer/wound right lateral foot with erythema, purulence, and exposed bone, Vital Signs: 11:39 BP 136 / 60; Pulse 93; Resp 16; Temp 97.6; Pulse Ox 100% on R/A; Weight 83.01 kg; iw Height 6 ft. 1 in. ; 14:00 BP 147 / 61; Pulse 50; Resp 18; Pulse Ox 100% on R/A; me1 15:00 BP 130 / 59; Pulse 49; Resp 17; Pulse Ox 98% on R/A; me1 16:00 BP 136 / 61; Pulse 52; Resp 17; Pulse Ox 100% on R/A; me1 17:00 BP 142 / 63; Pulse 50; Resp 17; Temp 98.4; Pulse Ox 100% ; me1 17:59 BP 134 / 55; Pulse 57; Resp 16; Pulse Ox 100% ; me1 11:39 Body Mass Index 24.14 (83.01 kg, 185.42 cm) iw MDM: 11:42 Medical Screening Exam initiated sb4 15:21 Data reviewed: vital signs, nurses notes, lab test result(s), radiologic studies, and sb4 as a result, I will admit patient. Consideration of Admission/Observation Patient was admitted/placed on observation. Management of patient was discussed with the following: Networks Computer Consultant: Dr. Toscano, recommends admission. 07/18 11:52 Order name: Blood Culture Adult (2) sb4 07/18 11:52 Order name: CBC with Diff; Complete Time: 14:11 sb4 07/18 11:52 Order name: CMP; Complete Time: 14:28 sb4 07/18 11:52 Order name: Lactate w/ 2H reflex if indic.; Complete Time: 14:34 sb4 07/18 11:52 Order name: Protime (+inr); Complete Time: 16:19 sb4 07/18 11:52 Order name: Ptt, Activated; Complete Time: 16:19 sb4 07/18 16:33 Order name: Urinalysis w/ reflexes EDMS 07/18 11:52 Order name: Foot Right 3 View XRAY; Complete Time: 13:08 sb4 07/18 11:53 Order name: Extremity Venous Uni Ltd US; Complete Time: 13:08 sb4 07/18 11:53 Order name: Lower Extremity Artery Uni Ltd US; Complete Time: 13:16 sb4 07/18 11:52 Order name: Accucheck; Complete Time: 15:18 sb4 07/18 11:52 Order name: Cardiac monitoring; Complete Time: 15:18 sb4 07/18 11:52 Order name: IV Saline Lock - Large Bore; Complete Time: 14:00 sb4 07/18 11:52 Order name: Labs collected and sent; Complete Time: 14:00 sb4 07/18 11:52 Order name: O2 Per Protocol; Complete Time: 14:00 sb4 07/18 11:52 Order name: O2 Sat Monitoring; Complete Time: 14:00 sb4 07/18 11:52 Order name: Vital Signs; Complete Time: 14:00 sb4 07/18 14:11 Order name: Labs - recollect needed: recollect blue top; Complete Time: 16:05 bd Administered Medications: 16:05 Drug: vancoMYCIN IVPB 1.5 grams IVPB at calculated rate once Route: IVPB; Rate: me1 calculated rate; Site: left antecubital; 17:57 Follow up: IV Status: Infusion continued upon admission me1 Disposition: 19:44 I was immediately available on-site in the Emergency Department for consultation in the ms3 care of the patient. Disposition Summary: 07/18/24 15:18 Hospitalization Ordered Notes: Hospitalization Status: Inpatient Admission sb4 [facility] sb4 Condition: Fair sb4 Problem: an ongoing problem sb4 Symptoms: are unchanged sb4 Bed/Room Type: Standard sb4 Provider: Cat Arrieta(07/18/24 15:20) sb4 Room Assignment: [facility](07/18/24 17:00) 6 Diagnosis - Subacute osteomyelitis, right ankle and foot sb4 Forms: - Medication Reconciliation Form sb4 - SBAR form sb4 - Leadership Thank You Letter sb4 Signatures: Dispatcher [employer] EDYadira Baron Irene, RN RN iw Marco Antonio Riley DO DO ms3 Nicolasa Thomson PA-C PA-C sb4 Batsheva Goldberg bc6 Cookie Iverson RN RN me1 Corrections: (The following items were deleted from the chart) 11:53 11:53 BLOOD CULTURE*+BA.LAB.BRZ ordered. EDMS EDMS 11:53 11:53 CBC+H.LAB.BRZ ordered. EDMS EDMS 11:53 11:53 COMPREHENSIVE METABOLIC PANEL+C.LAB.BRZ ordered. EDMS EDMS 11:53 11:53 LACTATE+C.LAB.BRZ ordered. EDMS EDMS 11:53 11:53 PROTIME (+INR)+COAG.LAB.BRZ ordered. EDMS EDMS 11:53 11:53 PTT, ACTIVATED+COAG.LAB.BRZ ordered. EDMS EDMS 11:53 11:53 Lower Extremity Artery Uni Ltd+US.RAD.BRZ ordered. EDMS EDMS 15:20 15:18 Jimbo Barraza sb4 sb4 17:00 15:18 sb4 bc6
--- NOTE | 2024-07-18 15:19 | ER ---
Nurse's Notes [facility] Name: Yeyo Pelayo Age: 83 yrs Sex: Male : 1940 Arrival Date: 07/18/2024 Time: 11:08 Bed 26 Private MD: Diagnosis: Subacute osteomyelitis, right ankle and foot Presentation: 07/18 11:39 Chief complaint: Patient states: Dr. Toscano wants pt to be evaluated in ER for iw possible amputation of right toes. Coronavirus screen: At this time, the client does not indicate any symptoms associated with coronavirus-19. Ebola Screen: No symptoms or risks identified at this time. Initial Sepsis Screen: Does the patient meet any 2 criteria? No. Patient's initial sepsis screen is negative. Does the patient have a suspected source of infection? No. Patient's initial sepsis screen is negative. Risk Assessment: Do you want to hurt yourself or someone else? Patient reports no desire to harm self or others. Onset of symptoms was July 18, 2024. 11:39 Method Of Arrival: Wheelchair iw 11:39 Acuity: KEN 3 iw Historical: - Allergies: 11:40 No Known Allergies; iw - PMHx: 11:40 Kidney stones; Hypertension; Diabetes - NIDDM; chronic kidney disease (Kidney stones); iw - PSHx: 11:40 amputation of second to last toe on right foot; Stented artery; Lithotripsy; iw - Immunization history:: Adult Immunizations not up to date. - Infectious Disease History:: Denies. - Social history:: Smoking status: Patient denies any tobacco usage or history of. Screenin:00 [facility] ED Fall Risk Assessment (Adult) History of falling in the last 3 months, me1 including since admission No falls in past 3 months (0 pts) Confusion or Disorientation No (0 pts) Intoxicated or Sedated No (0 pts) Impaired Gait Yes (1 pt) Mobility Assist Device Used Yes (1 pt) Altered Elimination No (0 pt) Score/Fall Risk Level 0 - 2 = Low Risk Maintained a safe environment, Provided non-skid footwear, Hourly rounding (assess needs \T\ fall precautionary measures) done. Abuse screen: Denies threats or abuse. Nutritional screening: No deficits noted. Tuberculosis screening: No symptoms or risk factors identified. Assessment: 13:00 General: Appears uncomfortable, well groomed, well developed, well nourished, Behavior me1 is calm, cooperative, appropriate for age, Reports Dr. Toscano wants pt to be evaluated in ER for possible amputation of right toes. Pain: Complains of pain in lateral side of right foot Pain does not radiate. Pain currently is 4 out of 10 on a pain scale. Quality of pain is described as aching, Pain began gradually, Is continuous. Neuro: Level of Consciousness is awake, alert, obeys commands, Oriented to person, place, time, situation, Appropriate for age. Cardiovascular: Patient's skin is warm and dry. Respiratory: Airway is patent Trachea midline Respiratory effort is even, unlabored, Respiratory pattern is regular, symmetrical. GI: No signs and/or symptoms were reported involving the gastrointestinal system. : No signs and/or symptoms were reported regarding the genitourinary system. EENT: No signs and/or symptoms were reported regarding the EENT system. Derm: Skin is healthy with good turgor, Skin is pink, warm \T\ dry. Derm: Wound noted lateral side of right foot Wound is diabetic wound to right lateral foot and 4th and 5th toes. Musculoskeletal: Reports pain in lateral side of right foot. Vital Signs: 11:39 BP 136 / 60; Pulse 93; Resp 16; Temp 97.6; Pulse Ox 100% on R/A; Weight 83.01 kg; iw Height 6 ft. 1 in. ; 14:00 BP 147 / 61; Pulse 50; Resp 18; Pulse Ox 100% on R/A; me1 15:00 BP 130 / 59; Pulse 49; Resp 17; Pulse Ox 98% on R/A; me1 16:00 BP 136 / 61; Pulse 52; Resp 17; Pulse Ox 100% on R/A; me1 17:00 BP 142 / 63; Pulse 50; Resp 17; Temp 98.4; Pulse Ox 100% ; me1 17:59 BP 134 / 55; Pulse 57; Resp 16; Pulse Ox 100% ; me1 11:39 Body Mass Index 24.14 (83.01 kg, 185.42 cm) iw ED Course: 11:13 Patient arrived in ED. mg5 11:20 Nicolasa Thomson PA-C is PHCP. sb4 11:20 Mraco Antonio Riley DO is Attending Physician. sb4 11:40 Triage completed. iw 11:41 Arm band placed on. iw 12:41 Extremity Venous Uni Ltd US In Process Unspecified. EDMS 12:41 Lower Extremity Artery Uni Ltd US In Process Unspecified. EDMS 12:44 Foot Right 3 View XRAY In Process Unspecified. EDMS 13:00 Patient has correct armband on for positive identification. Bed in low position. Call me1 light in reach. Side rails up X2. Provided Education on: POC. Verbalized understanding.. Client placed on continuous cardiac and pulse oximetry monitoring. NIBP monitoring applied. gambling monitor on. Pulse ox on. NIBP on. 13:23 Cookie Iverson, CACHORRO is Primary Nurse. me1 13:57 Initial lab(s) drawn, by me, sent to lab. First set of blood cultures drawn by me. me1 14:00 Inserted saline lock: 20 gauge in left antecubital area, using aseptic technique. me1 14:00 CBC with Diff Sent. me1 14:00 CMP Sent. me1 14:00 Lactate w/ 2H reflex if indic. Sent. me1 14:00 Protime (+inr) Sent. me1 14:00 Ptt, Activated Sent. me1 14:05 Second set of blood cultures drawn by me. me1 14:06 Blood Culture Adult (2) Sent. me1 14:06 Inserted. me1 14:06 No provider procedures requiring assistance completed. me1 15:18 Jimbo Barraza is Hospitalizing Provider. sb4 15:20 Cat Arrieta is Hospitalizing Provider. sb4 17:14 Patient admitted, IV remains in place. me1 Administered Medications: 16:05 Drug: vancoMYCIN IVPB 1.5 grams IVPB at calculated rate once Route: IVPB; Rate: me1 calculated rate; Site: left antecubital; 17:57 Follow up: IV Status: Infusion continued upon admission me1 Medication: 13:00 VIS not applicable for this client. me1 Outcome: 15:18 Decision to Hospitalize by Provider. sb4 17:14 Admitted to Tele accompanied by tech, via wheelchair, room 420, with chart, Report me1 called to faxed, receipt confirmed with Renata. 17:14 Condition: stable 17:14 Instructed on the need for admit, 17:59 Patient left the ED. me1 Signatures: Dispatcher [employer] Delmis Richard, RN RN iw Nicolasa Thomson PA-C PAAmarilis sb4 Cookie Iverson RN RN me1 Juana Ware mg5 Corrections: (The following items were deleted from the chart) 11:42 11:39 BP 136 / 60; Pulse 93bpm; Resp 16bpm; Pulse Ox 100% RA; Temp 97.6F; iw iw 14:26 11:39 Chief complaint: Patient states: Dr. Toscano wants pt to be evaluated in ER for me1 possible amputation of right toes iw
[2024-07-18] MEDS ORDERED: VANCOMYCIN 500 MG/VIAL ONE (15:45)
[2024-07-18] MEDS ORDERED: NA CHLORIDE 0.9% 250 ML ONE (15:45)
[2024-07-18] MEDS ORDERED: VANCOMYCIN 1 GM/VIAL ONE (15:45)
[2024-07-18 16:19] LABS: PTT, Activated Partial Thromb 33.5 SECONDS (24.3-36.9); Protime INR 1.07
[2024-07-18] MEDS ORDERED: ALBUTEROL 2.5 MG/3 ML NEB SOL NEB PRN (16:31)
[2024-07-18] MEDS ORDERED: ACETAMINOPHEN 500 MG TAB PO PRN (16:31)
[2024-07-18] MEDS ORDERED: ACETAMINOPHEN 325 MG TABLET PO PRN (16:31)
[2024-07-18] MEDS ORDERED: D10W 125 ML IV PRN (16:31)
[2024-07-18] MEDS ORDERED: GLUCAGON 1 MG/VIAL IM PRN (16:31)
[2024-07-18] MEDS ORDERED: ONDANSETRON 4 MG/2 ML VIAL IV PRN (16:31)
--- NOTE | 2024-07-18 16:51 | P.HP ---
Certification for Inpatient With expected LOS: >2 Midnights Practitioner: I am a practitioner with admitting privileges, knowledge of patient current condition, hospital course, and medical plan of care. Services: Services provided to patient in accordance with Admission requirements found in Title 42 Section 412.3 of the Code of Federal Regulations Patient History Date of Service: 07/18/24 Reason for admission: Osteomyelitis of right great History of Present Illness: This is 83 years old gentleman with a past medical history notable for type 2 diabetes, CKD stage IIIb, nonhealing ulcer of the right foot who was presented to emergency room for wound check. He recently admitted and underwent debridement by Dr. Orellana and discharged home with doxycycline and home health for wound care. However patient right foot wound did not heal since May 2024. Patient is being admitted for surgical debridement or amputation for tomorrow morning by his surgeon. Allergies No Known Drug Allergies Allergy (Verified 05/04/24 20:22) Unknown Home Medications: LORazepam [Ativan*] 1 mg PO TIDP PRN 03/06/24 Amlodipine [Norvasc*] 10 mg PO DAILY 30 Days #30 tab 03/08/24 Metoprolol Tartrate [Lopressor*] 25 mg PO BID 6AM 6PM 30 Days #60 tab 03/08/24 Atorvastatin Calcium [Lipitor*] 20 mg PO BEDTIME 05/04/24 Clopidogrel Bisulfate [Plavix] 75 mg PO DAILY 05/04/24 Glimepiride 1 mg PO TID 05/04/24 Fluconazole [Diflucan] 200 mg PO DAILY #7 tab 05/08/24 Hydrocodone 10/APAP 325 [[place] 10/325*] 1 tab PO Q6H PRN #20 tab 05/08/24 levoFLOXacin [Levaquin] 750 mg PO DAILY #10 tab 05/08/24 - Past Medical/Surgical History Diabetic: Yes -: Hypertension -: Type 2 diabetes -: Nephrolithiasis -: CKD 3 -: Anxiety -: Gout -: Current UTI Dx 02/28 currently day 6 of Levaquin p.o. -: urethral stent placement -: cystoscopy -: hernia repair Psychosocial/ Personal History: Retired, lives at home with his - Family History Mother -: Hypertension Notes: alzheimers Father -: Cancer Notes: colon - Social History Alcohol use: No CD- Drugs: No Caffeine use: Yes Review of Systems Other: Consitutional; fever(-), chills (-), rigor(-), night sweat(-), unintentional weight loss(-) HEENT; epistaxis (-), otorrhea (-), otalgia (-) Respiratory; shortness of breath (-), wheezing (-), cough (-), sputum (-), pleuritic chest pain (-) Cardiovascular; chest pain (-), peripheral edema (-), paroxysmal nocturnal dyspnea (-), orthopnea (-) Gastrointestinal; nausea (-), vomiting (-), abdominal pain (-), diarrhea (-), constipation (-), melena (-), hematochezia (-) Urinary; urinary frequency (-), dysuria (-), urgency (-), flank pain (-), gross hematuria (-) Skin; rash (-), 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 General: Not acutely ill looking, in no apparent distress,. HEENT: Normocephalic, atraumatic,. Neck: Supple, without JVD or goiter or thyroid mass. Respiratory: Normal breathing effort, clear to auscultation bilaterally, no crackles no wheezing or rhonchi. Cardiovascular: Regular rate and rhythm, S1, S2 normal, no murmur no gallop. Gastrointestinal: Normal bowel sounds, nondistended, nontender, No ascites, , No masses, no hepatosplenomegaly. Musculoskeletal: No clubbing, No peripheral edema, right foot in dressing, dark pigmentation of the right, fourth, fifth toes, mild tenderness, no crepitus, sensation grossly intact. Integumentary: No rashes. Lymphatics: No axilla or cervical lymphadenopathy. Neurology; alert awake oriented x3, no focal neurologic deficit - Studies Laboratory Data (last 24 hrs) 07/18/24 07/18/24 07/18/24 16:02 13:57 13:57 WBC 6.90 Hgb 12.2 L Hct 37.5 L Plt Count 302 PT 12.0 INR 1.07 APTT 33.5 Sodium 136 Potassium 4.0 BUN 27 H Creatinine 1.66 H Glucose 224 H Total Bilirubin 0.3 AST 11 L ALT < 14 L Alkaline Phosphatase 112 Imagings Data: X-ray of the right foot revealed a finding consistent with osteomyelitis of 3 toes including metatarsal and phalanges Arterial duplex demonstrated moderate peripheral artery disease of right lower extremity No DVT of the right lower extremity by duplex ultrasound Assessment and Plan - Plan This is 53 years old gentleman with past medical history notable for type 2 diabetes, CKD stage III, 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 #1 infected diabetic foot ulcer complicated by osteomyelitis of the right foot No systemic toxicity, no leukocytosis, will start IV vancomycin and ceftriaxone per surgery request Planning on amputation or surgical debridement by his surgeon, Dr. Toscano tomorrow #2 controlled type 2 diabetes Random blood sugar 224, hemoglobin A1c 6.0 in 2022, low-dose corrective insulin, I will obtain a new hemoglobin A1c #3 peripheral artery disease Moderate peripheral artery disease of the right lower extremity by duplex arterial ultrasound, will continue aspirin and statin #4 diabetic CKD stage IIIb His creatinine 1.66, stable compared to previous value, no electrolyte imbalance, euvolemia, will monitor BUN/creatinine and electrolytes periodically after surgery, avoid nephrotoxin N.p.o. after midnight for surgery tomorrow - Advance Directives Does patient have a Living Will: No Does patient have a Durable POA for Healthcare: No
[2024-07-18] MEDS: VANCOMYCIN 500 MG in NA CHLORIDE 0.9% 100 ML IVPB ONE (18:00)
[2024-07-18] MEDS: ENOXAPARIN 40 MG/0.4 ML SQ SCH (18:00)
[2024-07-18] MEDS: HYDROCODONE/APAP 5/325 MG TAB PO PRN (18:21)
[2024-07-18] MEDS: CEFTRIAXONE 1,000 MG in NA CHLORIDE 0.9% 50 ML IVPB SCH (19:57)
[2024-07-18] MEDS: INSULIN REGULAR (HUMAN) 100 UNIT/ML SQ SCH (21:00)
[2024-07-19] MEDS: PNEUMOCOCCAL VACCINE 0.5 ML IMVAC ONE (08:00)
[2024-07-19] MEDS: FLU (Fluarix Triv) TS24-25(6MOS UP)/PF 45 MCG/0.5 ML Syringe IM ONE (08:00)
[2024-07-19] MEDS ORDERED: HYDROCODONE/APAP 10/325 TAB PO PRN (08:07)
[2024-07-19] MEDS ORDERED: HYDRALAZINE HCL 20 MG/ML VIAL IV PRN (08:12)
[2024-07-19] MEDS: DOCUSATE NA/SENNA CONC 1 TAB PO SCH (08:47)
[2024-07-19] MEDS: GLIMEPIRIDE 2 MG TABLET PO SCH (08:49)
[2024-07-19] MEDS: AMLODIPINE 10 MG TAB PO SCH (08:49)
[2024-07-19] MEDS: D5 0.45 NS 1,000 ML IV SCH (08:50)
[2024-07-19] MEDS ORDERED: HOME MED 1 EA UNK (Glimepiride [Glimepiride] 1 MG Tablet) PO SCH (09:00)
[2024-07-19] MEDS: NA CHLORIDE 0.9% 1,000 ML ONE (13:00)
--- NOTE | 2024-07-19 13:49 | P.PN ---
Subjective Date of Service: 07/19/24 Chief Complaint: Osteomyelitis of right great Subjective: No new changes No event noted last night, patient is waiting for surgical procedure today, he reported his right foot pain is tolerable, unchanged, no purulent discharge or bleeding overnight. He has no other complaint. Review of Systems Other: Consitutional; fever(-), chills (-), rigor(-), night sweat(-), unintentional weight loss(-) HEENT; diplopia (-), rhinorrhea (-), epistaxis (-), otorrhea (-), otalgia (-) Respiratory; shortness of breath (-), wheezing (-), cough (-), sputum (-), pleuritic chest pain (-) Cardiovascular; chest pain (-), peripheral edema (-), paroxysmal nocturnal dyspnea (-), orthopnea (-) Gastrointestinal; nausea (-), vomiting (-), abdominal pain (-), diarrhea (-), constipation (-), melena (-), hematochezia (-) Urinary; urinary frequency (-), dysuria (-), urgency (-), flank pain (-), gross hematuria (-), incontinence (-) Skin; rash (-), 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 General: Not acutely ill looking, in no apparent distress,. HEENT: Normocephalic, atraumatic,. Neck: Supple, without JVD or goiter or thyroid mass. Respiratory: Normal breathing effort, clear to auscultation bilaterally, no crackles no wheezing or rhonchi. Cardiovascular: Regular rate and rhythm, S1, S2 normal, no murmur no gallop. Gastrointestinal: Normal bowel sounds, nondistended, nontender, No ascites, , No masses, no hepatosplenomegaly. Musculoskeletal: No clubbing, No peripheral edema, right foot in dressing, dark pigmentation of the right, fourth, fifth toes, mild tenderness, no crepitus, decreased sensation grossly. Integumentary: No rashes. Lymphatics: No axilla or cervical lymphadenopathy. 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 #1 infected diabetic foot ulcer complicated by osteomyelitis of the right foot No systemic toxicity, no leukocytosis, will start IV vancomycin and ceftriaxone per surgery request Planning on amputation or surgical debridement by his surgeon, Dr. Toscano today, I will order follow-up CBC BMP tomorrow morning Pain control with [place] 10/325, morphine 2 mg as needed #2 controlled type 2 diabetes Random blood sugar 224, hemoglobin A1c 6.0 in 2022, resume his glimepiride and continue low-dose corrective insulin, I will obtain a new hemoglobin A1c #3 peripheral artery disease in underlying diabetic peripheral neuropathy Moderate peripheral artery disease of the right lower extremity by duplex arterial ultrasound, will continue aspirin and statin #4 diabetic CKD stage IIIb His creatinine 1.66, stable compared to previous value, no electrolyte imbalance, euvolemia, will monitor BUN/creatinine and electrolytes periodically after surgery, avoid nephrotoxin
[2024-07-19] MEDS: ROPIVACAINE HCL 0 ML ONE (13:53)
[2024-07-19] MEDS: dexAMETHasone 10 MG/ML VIAL ONE (13:53)
[2024-07-19] MEDS: EPINEPHRINE 1 MG/ML VIAL ONE (13:53)
[2024-07-19] MEDS ORDERED: LIDOCAINE 2% MPF 5 ML VIAL ONE (13:55)
[2024-07-19] MEDS ORDERED: propofoL 200 MG/20 ML VIAL IV ONE (13:55)
[2024-07-19] MEDS: LIDOCAINE HCL/EPINEPHRINE 20 ML MDV ONE (14:20)
[2024-07-19] MEDS: ROPLVACAINE HCL 20 ML ONE (14:36)
--- NOTE | 2024-07-19 15:10 | P.OP ---
Preoperative diagnosis: RIGHT Foot Osteomyelitis Postoperative diagnosis: RIGHT Foot Osteomyelitis Primary procedure: RIGHT Foot 5th Ray, Partial 4th Ray Amputation Anesthesia: GETA + Local + Regional Estimated blood loss: < 10cc Specimen: Ray Amputation of 4th / 5th metatarsals, cuboid Findings: osteomyelitis of 4th, 5th metatarsals, 3rd metatarsal head Complications: None Transferred to: Recovery Room Condition: Good
[2024-07-19] MEDS: VANCOMYCIN 1.5 GM in NA CHLORIDE 0.9% 500 ML IVPB SCH (17:10)
[2024-07-19] MEDS: METOPROLOL TAR 25 MG TAB PO SCH (17:12)
[2024-07-19] MEDS: HYDROCODONE/APAP 5/325 MG TAB PO PRN (17:24)
[2024-07-19 18:29] VITALS: BMI 23.9
[2024-07-19] MEDS: LORAZEPAM 1 MG TABLET PO PRN (20:46)
[2024-07-19] MEDS: ATORVASTATIN 20 MG TAB PO SCH (20:46)
--- NOTE | 2024-07-20 00:45 | OP ---
Date of Procedure: 07/19/2024 Surgeon: Thomas Toscano MD, Preoperative Diagnosis: Right foot osteomyelitis. Postoperative Diagnosis: Right foot osteomyelitis. Procedures Performed: 1.Right foot fifth ray amputation including cuboid. 2.Partial fourth ray amputation to proximal metatarsal. 3.Excision of third metatarsal head. Anesthesia: General endotracheal plus local plus regional. Estimated Blood Loss: 10 cc. Specimens: Ray amputation of digits as described above. Findings: Osteomyelitis of the fourth and fifth metatarsals and the third metatarsal head. Complications: None. Disposition: The patient was transferred to recovery room in good condition. Procedure In Detail: After informed consent was obtained, the patient was brought to the operating r oom, prepped and draped in the usual sterile fashion. After adequate anesthesia was achieved, I anes thetized the area between the fourth and fifth metatarsals to be on the metatarsophalangeal joint. I then demarcated an area of ray amputation to the lateral midfoot including the cuboid which had beco me exposed. Ultimately, I demarcated this area with a 15 blade down to subcutaneous tissues, dissect ed down circumferentially around, the bones and ligamentous structures. Ultimately, I pus hed back all the periosteum using periosteal elevators to expose the bone on the fifth and fourth met atarsals. I exposed and noted that the fourth metatarsal was exposed at the cuboid as well as exposu re of the cuboid bone and as such, I included this in specimen taking this slightly back farther. I dissected free the ligamentous attachments to the cuboid, removed it in its entirety along with the e ntire metatarsal and phalanges of the fifth digit. I then did a partial fourth ray amputation as the patient had a previous fourth digit amputation down to the mid to proximal metatarsal of the fourth ray. I also took off the third metatarsal head as it appeared to be osteoporotic and possibly with o steomyelitis there. I removed it using a rongeur. The patient was transferred to recovery room in g ood condition. After I did the amputation as described above, the area was copiously irrigated multi ple times until completely clear. Good viable healthy bleeding tissue was left behind. I then reapp roximated loosely the skin which came over nicely with good coverage. I then closed this area with a 3-0 nylon in an interrupted fashion. The patient tolerated the procedure well without incident or c omplication and transferred to PACU in good condition. All counts were correct at the end of the tushar e. MICHELLE/MODL Voice ID: [id number] Report ID: [id number]
[2024-07-20] MEDS ORDERED: VANCOMYCIN 1.5 GM in NA CHLORIDE 0.9% 500 ML IVPB SCH (04:00)
[2024-07-20] MEDS: MORPHINE 2 MG/ML SYR IV PRN (05:38)
[2024-07-20 07:28] LABS: Absolute Basophils 0.1 K/uL (0-0.5); Absolute Lymphocytes (CBC) 0.4 K/uL (0.7-4.9); Absolute Monocytes 0.3 K/uL (0.1-1.3); Absolute Neutrophil 11.6 K/uL (1.8-8.0); Basophils % 0.5 % (0-1.3); Hematocrit 37.3 % (39.6-49.0); Lymphocytes % 2.9 % (15.3-44.8); MCH 29.4 pg (27.0-35.0); MCHC 32.1 g/dL (32.0-36.0); MCV 91.6 fL (80-100); MPV 7.2 fL (7.6-11.3); Monocytes % 2.1 % (3.3-12.3); Neutrophils % 94.5 % (41.7-73.7); Platelets 300 thou/uL (152-406); RBC Red Blood Cell Count 4.07 M/uL (4.33-5.43); Red Cell Distribution Width 14.5 % (12.1-15.2)
[2024-07-20] MEDS: HYDROMORPHONE HCL 0.5 MG/0.5 ML INJ IV PRN (09:21)
[2024-07-20] MEDS: CLOPIDOGREL 75 MG TABLET PO SCH (09:21)
--- NOTE | 2024-07-20 13:20 | P.PN ---
Subjective Date of Service: 07/20/24 Chief Complaint: Osteomyelitis of right great Patient underwent a partial ray amputation of the left fourth and fifth toe and excision of head of third metatarsal yesterday, no postoperative event except the patient is complaining of severe pain at operation site requiring IV analgesics. Review of Systems Other: Consitutional; fever(-), chills (-), rigor(-), night sweat(-), unintentional weight loss(-) HEENT; diplopia (-), rhinorrhea (-), epistaxis (-), otorrhea (-), otalgia (-) Respiratory; shortness of breath (-), wheezing (-), cough (-), sputum (-), pleuritic chest pain (-) Cardiovascular; chest pain (-), peripheral edema (-), paroxysmal nocturnal dyspnea (-), orthopnea (-) Gastrointestinal; nausea (-), vomiting (-), abdominal pain (-), diarrhea (-), constipation (-), melena (-), hematochezia (-) Urinary; urinary frequency (-), dysuria (-), urgency (-), flank pain (-), gross hematuria (-), incontinence (-) Skin; rash (-), 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 General: Not acutely ill looking, in no apparent distress,. HEENT: Normocephalic, atraumatic,. Neck: Supple, without JVD or goiter or thyroid mass. Respiratory: Normal breathing effort, clear to auscultation bilaterally, no crackles no wheezing or rhonchi. Cardiovascular: Regular rate and rhythm, S1, S2 normal, no murmur no gallop. Gastrointestinal: Normal bowel sounds, nondistended, nontender, No ascites, , No masses, no hepatosplenomegaly. Musculoskeletal: No clubbing, No peripheral edema, right foot in dressing, mildly decreased sensation grossly. Integumentary: No rashes. Lymphatics: No axilla or cervical lymphadenopathy. 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 #1 infected diabetic foot ulcer complicated by osteomyelitis of the right foot status post partial ray amputation of right fourth and fifth toe, excision of third metatarsal on July 19 Mild leukocytosis at 12.2 after surgery, continue IV vancomycin and ceftriaxone, surgical pathology/culture pending I will change to 1 mg Dilaudid as needed in addition to [place] 5/325 #2 controlled type 2 diabetes His hemoglobin A1c 6.7 at target, his glimepiride resumed, good glycemic control with glimepiride and low-dose corrective insulin #3 peripheral artery disease in underlying diabetic peripheral neuropathy Moderate peripheral artery disease of the right lower extremity by duplex arterial ultrasound, will continue aspirin and statin #4 diabetic CKD stage IIIb His creatinine stable at 1.4 after surgery , no electrolyte imbalance, euvolemia, will monitor BUN/creatinine and electrolytes periodically
[2024-07-20] MEDS: HYDROCODONE/APAP 7.5/325 MG TAB PO PRN (16:07)
[2024-07-20] MEDS: DOCUSATE NA 100 MG CAP PO SCH (21:28)
--- NOTE | 2024-07-21 14:55 | P.PN ---
Subjective Date of Service: 07/21/24 Chief Complaint: Osteomyelitis of right great Patient stated his postoperative foot pain has improved with IV Dilaudid however he was up all night urinating keeping him from sleeping. Therefore he is really tired this morning. Review of Systems Other: Consitutional; fever(-), chills (-), rigor(-), night sweat(-), unintentional weight loss(-) HEENT; diplopia (-), rhinorrhea (-), epistaxis (-), otorrhea (-), otalgia (-) Respiratory; shortness of breath (-), wheezing (-), cough (-), sputum (-), pleuritic chest pain (-) Cardiovascular; chest pain (-), peripheral edema (-), paroxysmal nocturnal dyspnea (-), orthopnea (-) Gastrointestinal; nausea (-), vomiting (-), abdominal pain (-), diarrhea (-), constipation (-), melena (-), hematochezia (-) Urinary; urinary frequency (+-), dysuria (-), urgency (-), flank pain (-), gross hematuria (-), incontinence (-) Skin; rash (-), pruritus (-) 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 General: Not acutely ill looking, in no apparent distress,. HEENT: Normocephalic, atraumatic,. Neck: Supple, without JVD or goiter or thyroid mass. Respiratory: Normal breathing effort, clear to auscultation bilaterally, no crackles no wheezing or rhonchi. Cardiovascular: Regular rate and rhythm, S1, S2 normal, no murmur no gallop. Gastrointestinal: Normal bowel sounds, nondistended, nontender, No ascites, , No masses, no hepatosplenomegaly. Musculoskeletal: No clubbing, No peripheral edema, right foot in dressing, mildly decreased sensation grossly. Integumentary: No rashes. Lymphatics: No axilla or cervical lymphadenopathy. 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 #1 infected diabetic foot ulcer complicated by osteomyelitis of the right foot status post partial ray amputation of right fourth and fifth toe, excision of third metatarsal on July 19 Mild leukocytosis at 12.2 after surgery, I will downgrade antibiotics to oral doxycycline and Augmentin , surgical pathology/culture pending Pain management with 1 mg Dilaudid as needed in addition to [place] 5/325 #2 controlled type 2 diabetes His hemoglobin A1c 6.7 at target, fasting blood sugar of 52, oral glucose given, otherwise his glycemia is optimized, I will change clinic provide 4 mg once a day and low-dose corrective insulin f #3 peripheral artery disease in underlying diabetic peripheral neuropathy Moderate peripheral artery disease of the right lower extremity by duplex arterial ultrasound, will continue aspirin and statin #4 diabetic CKD stage IIIb His creatinine stable at 1.4 after surgery , no electrolyte imbalance, euvolemia, will monitor BUN/creatinine and electrolytes periodically Plan to discharge home in 1 or 2 days, case filler consult ordered for postoperative wound care and physical therapy
[2024-07-21] MEDS: AMOX/K CLAV 875 MG TAB PO SCH (17:41)
[2024-07-21] MEDS: DOXYCYCLINE 100 MG CAP PO SCH (20:48)
[2024-07-21] MEDS ORDERED: VANCOMYCIN 1 GM in NA CHLORIDE 0.9% 250 ML IVPB SCH (21:00)
[2024-07-22] MEDS: GLIMEPIRIDE 2 MG TABLET PO SCH (08:19)
[2024-07-22 09:46] VITALS: O2SAT 98
--- NOTE | 2024-07-22 10:54 | P.DS ---
Admission Date: 07/18/24 Discharge Date: 07/22/24 Disposition: MA HOME/HOME HEALTH CARE Discharge Condition: GOOD Reason for Admission: Osteomyelitis of right great Brief History of Present Illness: This is 83 years old gentleman with a past medical history notable for type 2 diabetes, CKD stage IIIb, nonhealing ulcer of the right foot who was presented to emergency room for wound check. He recently admitted and underwent debridem ent by Dr. Orellana and discharged home with doxycycline and home health for wound care. However patient right foot wound did not heal since May 2024. Patient is being admitted for surgical debridement or amputation for tomorrow morning by his surgeon. Hospital Course: Patient was started on empiric antibiotic with IV vancomycin and ceftriaxone, underwent partial ray amputation of right fourth and fifth toes and excision of third metatarsal on July 19. He did very well postoperatively the wound was well-healing, his postoperative pain was reasonably controlled. His renal function remained stable during hospitalization. His antibiotics was downgraded to oral Augmentin and doxycycline. He achieved good glycemic control with home glimepiride but noted to have fasting hypoglycemia, glimepiride dosage was titrated down to 4 mg once a day with breakfast. His surgical pathology shows acute osteomyelitis, operative tissue culture was not sent. He is to send home with home health for postoperative wound care and physical therapy. He will see his surgeon, Dr. Zhao at his clinic after discharge, outpatient rehab will be arranged. . #1 infected diabetic foot ulcer complicated by acute osteomyelitis of the right foot No sepsis. #2 controlled type 2 diabetes His hemoglobin A1c 6.7 at target on admission #3 peripheral artery disease in underlying diabetic peripheral neuropathy Moderate peripheral artery disease of the right lower extremity by duplex arterial ultrasound, will continue aspirin and statin #4 diabetic peripheral polyneuropathy #5 diabetic CKD stage IIIb Vital Signs/Physical Exam: Temp Pulse Resp BP Pulse Ox 98.7 F 56 16 146/69 H 98 07/22/24 08:00 07/22/24 08:19 07/22/24 08:00 07/22/24 08:19 07/22/24 08:00 Other Physical/Emotional Findings: - Physical Exam. General: Not acutely ill looking, in no apparent distress,. HEENT: Normocephalic, atraumatic,. Neck: Supple, without JVD or goiter or thyroid mass. Respiratory: Normal breathing effort, clear to auscultation bilaterally, no crackles no wheezing or rhonchi. Cardiovascular: Regular rate and rhythm, S1, S2 normal, no murmur no gallop. Gastrointestinal: Normal bowel sounds, nondistended, nontender, No ascites, , No masses, no hepatosplenomegaly. Musculoskeletal: No clubbing, No peripheral edema, right foot in dressing, no bleeding or discharge noted, mildly decreased sensation grossly. Integumentary: No rashes. Lymphatics: No axilla or cervical lymphadenopathy. Neurology; alert awake oriented x3, no focal neurologic deficit Laboratory Data at Discharge: WBC 12.20 thou/uL (4.3-10.9) H 07/20/24 07:14 Hgb 12.0 g/dL (13.6-17.9) L 07/20/24 07:14 Hct 37.3 % (39.6-49.0) L 07/20/24 07:14 Plt Count 300 thou/uL (152-406) 07/20/24 07:14 PT 12.0 SECONDS (9.4-12.5) 07/18/24 16:02 INR 1.07 07/18/24 16:02 APTT 33.5 SECONDS (24.3-36.9) 07/18/24 16:02 Sodium 140 mEq/L (136-145) 07/20/24 07:14 Potassium 4.0 mEq/L (3.5-5.1) 07/20/24 07:14 BUN 25 mg/dL (7-18) H 07/20/24 07:14 Creatinine 1.44 mg/dL (0.70-1.30) H 07/20/24 07:14 Glucose 236 mg/dL (74-106) H 07/20/24 07:14 Total Bilirubin 0.3 mg/dL (0.2-1.0) 07/18/24 13:57 AST 11 U/L (15-37) L 07/18/24 13:57 ALT < 14 U/L (16-61) L 07/18/24 13:57 Alkaline Phosphatase 112 U/L (45-117) 07/18/24 13:57 Home Medications: LORazepam [Ativan*] 1 mg PO TIDP 03/06/24 Amlodipine [Norvasc*] 10 mg PO DAILY 30 Days #30 tab 03/08/24 Metoprolol Tartrate [Lopressor*] 25 mg PO BID 6AM 6PM 30 Days #60 tab 03/08/24 Atorvastatin Calcium [Lipitor*] 20 mg PO BEDTIME 05/04/24 Clopidogrel Bisulfate [Plavix] 75 mg PO DAILY 05/04/24 Ibuprofen 1 tab PO DAILY 07/18/24 Sennosides/Docusate Sodium [Docusate Sodium-Sennosides Tab] 50 mg DAILY 07/18/24 Amox/Clavulanate [Augmentin 875-125 Tab*] 875 mg PO BIDWM 7 Days #14 tab 07/22/24 Doxycycline Monohydrate [Mondoxyne Nl] 100 mg PO BID 7 Days #14 07/22/24 Glimepiride 4 mg PO DAILY 14 Days #15 07/22/24 Hydrocodone 10/APAP 325 [[place] 10/325] 1 tab PO TID PRN 5 Days #10 tab 07/22/24 New Medications: Amox/Clavulanate [Augmentin 875-125 Tab*] 875 mg PO BIDWM 7 Days #14 tab Glimepiride 4 mg PO DAILY 14 Days #15 Doxycycline Monohydrate [Mondoxyne Nl] 100 mg PO BID 7 Days #14 Hydrocodone 10/APAP 325 [[place] 10/325] 1 tab PO TID PRN 5 Days #10 tab PRN Reason: Pain Physician Discharge Instructions: Established Home Health: [facility] P: [phone] F: [phone] [facility] (wheelchair ordered 07/20/24 - pending authorization) [address], [place] [address] Hours: Open ? Closes 5?PM Diet: ADA Activity: Non-weight bearing (to RIGHT foot) Followup: Shaneka SANDHU,Carito-Francisco Huber DO [Primary Care Provider] - Thomas Toscano MD [ACTIVE - CAN ADMIT] -
[2024-07-22 13:15] VITALS: BP 140/66; TEMP 97.8
== END 2024-07-22 14:06 | disposition home health service (06) | DRG 617 ==
LOC: ER 11:08 → ERHOLD 16:28 → 4TH 17:51
PROVIDERS: ADMIT Internal Medicine; ATTEND Internal Medicine
PROC: 0Y6M0Z8 Detachment at Right Foot, Complete 5th Ray, Open Approach (ICD-10-PCS; 2024-07-19)
PROC: 0Y6T0Z0 Detachment at Right 3rd Toe, Complete, Open Approach (ICD-10-PCS; 2024-07-19)
PROC: 0Y6M0ZD Detachment at Right Foot, Partial 4th Ray, Open Approach (ICD-10-PCS; principal; 2024-07-19 14:15)
DX: E11.69 Type 2 diabetes mellitus with other specified complication (principal); M86.171 Other acute osteomyelitis, right ankle and foot; I12.9 Hypertensive chronic kidney disease with stage 1 through stage 4 chronic kidney disease, or unspecified chronic kidney disease; N18.32 Chronic kidney disease, stage 3b; E11.22 Type 2 diabetes mellitus with diabetic chronic kidney disease; E11.42 Type 2 diabetes mellitus with diabetic polyneuropathy; E11.51 Type 2 diabetes mellitus with diabetic peripheral angiopathy without gangrene; E11.621 Type 2 diabetes mellitus with foot ulcer; L97.519 Non-pressure chronic ulcer of other part of right foot with unspecified severity; M10.9 Gout, unspecified; Z79.02 Long term (current) use of antithrombotics/antiplatelets; Z89.421 Acquired absence of other right toe(s); Z79.899 Other long term (current) drug therapy; Z91.148 Patient's other noncompliance with medication regimen for other reason
CPT/HCPCS: 36415; 80048; 80053; 80202; 82947; 83036; 83605; 85025; 85610; 85730; 87040; 88305; 88311; 93926; 93971; 96365; 96366; 99285; J0171; J0696; J1100; J1171; J1650; J2003; J2270; J2704; J7030; J7040; J7050; J7799

== ENCOUNTER 2024-07-28 11:48 | Emergency (ER) | payer OTHER ==
[2024-07-28] MEDS ORDERED: DIAZEPAM 10 MG/2 ML INJ SYRINGE ONE (12:50)
--- NOTE | 2024-07-28 13:17 | RAD REPORT ---
EXAMINATION: XR RIGHT FOOT CLINICAL INDICATION: Male, 83 years old. PAIN TECHNIQUE: Multiple views of the right foot were obtained. COMPARISON: 07/18/2024 FINDINGS: Previous amputation to the level of the base of the fourth and fifth metatarsal noted. Smal l calcaneal spurs. Diffuse osteopenia. Irregular destructive changes are seen centered at the third MTP joint likely indicating osteomyelitis/septic arthritis.
[2024-07-28 13:31] LABS: Absolute Basophils 0.1 K/uL (0-0.5); Absolute Eosinophils 0.2 K/uL (0-0.5); Absolute Monocytes 0.8 K/uL (0.1-1.3); Absolute Neutrophil 8.3 K/uL (1.8-8.0); Basophils % 0.6 % (0-1.3); Eosinophils % 1.6 % (0-4.4); Hematocrit 35.6 % (39.6-49.0); Hemoglobin 11.6 g/dL (13.6-17.9); Lymphocytes % 9.6 % (15.3-44.8); MCH 29.6 pg (27.0-35.0); MCHC 32.6 g/dL (32.0-36.0); MCV 90.8 fL (80-100); MPV 7.4 fL (7.6-11.3); Monocytes % 7.9 % (3.3-12.3); Neutrophils % 80.3 % (41.7-73.7); Platelets 314 thou/uL (152-406); RBC Red Blood Cell Count 3.92 M/uL (4.33-5.43); Red Cell Distribution Width 14.2 % (12.1-15.2)
[2024-07-28] MEDS ORDERED: DOXYCYCLINE 100 MG CAP PO ONE (14:07)
[2024-07-28] MEDS ORDERED: NA CHLORIDE 0.9% 500 ML ONE (14:08)
[2024-07-28] MEDS ORDERED: CLINDAMYCIN 900MG/D5W 900 MG/50 ML IVPB IV ONE (14:08)
[2024-07-28 14:40] LABS: Albumin 2.7 g/dL (3.4-5.0); Albumin/Globulin Ratio 0.6 (1.1-1.8); Alkaline Phosphatase 92 U/L (45-117); Anion Gap 7.8 mEq/L (5.0-15.0); BUN Blood Urea Nitrogen 25 mg/dL (7-18); Bicarbonate 28 mEq/L (21-32); Bilirubin Total 0.3 mg/dL (0.2-1.0); Globulin 4.6 g/dL (2.3-3.5); Glomerular Filtration Rate 44 ml/min (=/>90); Glucose Level 253 mg/dL (74-106); Potassium 3.8 mEq/L (3.5-5.1); Protein, Total 7.3 g/dL (6.4-8.2); Sodium Level 134 mEq/L (136-145)
[2024-07-28 14:42] LABS: ALT/SGPT < 14 U/L (16-61); AST/SGOT < 10 U/L (15-37)
--- NOTE | 2024-07-28 15:04 | EDPHYS ---
Physician Documentation [facility] Name: Yeyo Pelayo Age: 83 yrs Sex: Male : 1940 Arrival Date: 07/28/2024 Time: 11:48 Bed 17 Private MD: ED Physician Kyree Cox HPI: 07/28 13:46 This 83 yrs old Male presents to ER via Wheelchair with complaints of right juana foot psbl infection. 13:46 The patient presents with decreased range of motion, pain, that is acute. The juana complaints affect the lateral aspect of right foot. Context: The problem was sustained. 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 - Infectious Disease History:: Denies. - Social history:: Smoking status: Patient denies any tobacco usage or history of. ROS: 13:47 Constitutional: Negative for fever, chills, and weight loss, Eyes: Negative for injury, juana pain, redness, and discharge, ENT: Negative for injury, pain, and discharge, Neck: Negative for injury, pain, and swelling, Cardiovascular: Negative for chest pain, palpitations, and edema, Respiratory: Negative for shortness of breath, cough, wheezing, and pleuritic chest pain, Abdomen/GI: Negative for abdominal pain, nausea, vomiting, diarrhea, and constipation, Back: Negative for injury and pain, : Negative for injury, bleeding, discharge, and swelling, Skin: Negative for injury, rash, and discoloration, Neuro: Negative for headache, weakness, numbness, tingling, and seizure, Psych: Negative for depression, anxiety, suicide ideation, homicidal ideation, and hallucinations, Allergy/Immunology: Negative for hives, rash, and allergies, Endocrine: Negative for neck swelling, polydipsia, polyuria, polyphagia, and marked weight changes, Hematologic/Lymphatic: Negative for swollen nodes, abnormal bleeding, and unusual bruising, 13:47 MS/extremity: Positive for decreased range of motion, erythema, pain, warmth, of the lateral aspect of right foot, Exam: 13:47 Constitutional: This is a well developed, well nourished patient who is awake, alert, juana and in no acute distress. Head/Face: Normocephalic, atraumatic. Eyes: Pupils equal round and reactive to light, extra-ocular motions intact. Lids and lashes normal. Conjunctiva and sclera are non-icteric and not injected. Cornea within normal limits. Periorbital areas with no swelling, redness, or edema. ENT: Nares patent. No nasal discharge, no septal abnormalities noted. Tympanic membranes are normal and external auditory canals are clear. Oropharynx with no redness, swelling, or masses, exudates, or evidence of obstruction, uvula midline. Mucous membranes moist. Neck: Trachea midline, no thyromegaly or masses palpated, and no cervical lymphadenopathy. Supple, full range of motion without nuchal rigidity, or vertebral point tenderness. No Meningismus. Chest/axilla: Normal chest wall appearance and motion. Nontender with no deformity. No lesions are appreciated. Cardiovascular: Regular rate and rhythm with a normal S1 and S2. No gallops, murmurs, or rubs. Normal PMI, no JVD. No pulse deficits. Respiratory: Lungs have equal breath sounds bilaterally, clear to auscultation and percussion. No rales, rhonchi or wheezes noted. No increased work of breathing, no retractions or nasal flaring. Abdomen/GI: Soft, non-tender, with normal bowel sounds. No distension or tympany. No guarding or rebound. No evidence of tenderness throughout. Back: No spinal tenderness. No costovertebral tenderness. Full range of motion. Male : Normal genitalia with no discharge or lesions. Neuro: Awake and alert, GCS 15, oriented to person, place, time, and situation. Cranial nerves II-XII grossly intact. Motor strength 5/5 in all extremities. Sensory grossly intact. Cerebellar exam normal. Normal gait. Psych: Awake, alert, with orientation to person, place and time. Behavior, mood, and affect are within normal limits. 13:47 ECG was reviewed by the Attending Physician. 13:47 Musculoskeletal/extremity: ROM: intact in all extremities, Circulation is intact in all extremities. Sensation intact. Compartment Syndrome exam of affected extremity: is normal. DVT Exam: negative Homans' sign noted on exam, no appreciated bluish discoloration, pain, swelling, tenderness, erythema, that is mild, dw dr fitzgerald, shot photos , discussed plan, increased warmth, 13:47 Skin: Appearance: Color: normal in color, Temperature: normal temperature, Moisture: normal moisture, petechiae, not noted, ecchymosis, not noted, flushing, not noted, cellulitis, that is mild, on the lateral side of right foot, Vital Signs: 12:23 BP 127 / 62; Pulse 58; Resp 18; Temp 98.1(O); Pulse Ox 100% on R/A; MAP 78 mmHg; Weight tm6 68.04 kg; Height 6 ft. 1 in. ; Pain 0/10; 12:48 BP 154 / 89; Pulse 87; Temp 98.5; am7 14:48 BP 117 / 55; Pulse 48; Pulse Ox 100% on R/A; MAP 71 mmHg; Pain 0/10; tm6 15:23 BP 128 / 49; Pulse 45; Resp 17; Temp 98.5; Pulse Ox 100% on R/A; MAP 70 mmHg; Pain 0/10;tm6 12:23 Body Mass Index 19.79 (68.04 kg, 185.42 cm) tm6 12:23 Pain Scale: Adult tm6 14:48 Pain Scale: Adult tm6 15:23 Pain Scale: Adult tm6 MDM: 11:55 Medical Screening Exam initiated [facility] 13:50 Differential diagnosis: open fracture, contusion, abrasion, sprain. Data reviewed: [facility] vital signs, nurses notes, lab test result(s), radiologic studies, plain films. Consideration of Admission/Observation Escalation of care including admission/observation considered. I considered the following discharge prescriptions or medication management in the emergency department Medications were administered in the Emergency Department. See MAR. Independent interpretation of the following test(s) in the Emergency Department X-Ray: My interpretation is right foot. Historians other than the Patient: Family Member: many family , dr fitzgerald. Care significantly affected by the following chronic conditions: Diabetes, Hypertension, ckd, pvd. 07/28 11:56 Order name: CBC with Diff; Complete Time: 14:03 [facility] 07/28 11:56 Order name: Comprehensive Metabolic Panel; Complete Time: 15:02 [facility] 07/28 11:56 Order name: CRP; Complete Time: 15:02 [facility] 07/28 11:56 Order name: Foot Right 3 View XRAY; Complete Time: 14:03 [facility] 07/28 11:56 Order name: EKG - Nurse/Tech; Complete Time: 12:23 [facility] 07/28 12:53 Order name: Wound Care: xeroform,gauze; Complete Time: 14:48 [facility] 07/28 13:36 Order name: Labs - recollect needed: green; Complete Time: 14:31 bc6 EC:47 Rate is 54 beats/min. Rhythm is regular. QRS [place] is Normal. WA interval is prolonged [facility] at 252 msec. QRS interval is normal. QT interval is normal. No Q waves. T waves are Normal. No ST changes noted. Clinical impression: Sinus bradycardia. Interpreted by me. Reviewed by me. Administered Medications: 12:53 CANCELLED (Duplicate Order): diazepam5 mg IM once juana 13:59 Drug: Diazepam IM 5 mg IM once Route: IM; Site: right deltoid; tm6 14:22 Follow up: Response: No adverse reaction tm6 14:23 Not Given (Duplicate Order): [id number] mg IM once tm6 14:31 Drug: NS 0.9% IV 500 ml 500 ml IV at 1 bolus once; to be given as a bolus over 30 tm6 minutes Volume: 500 ml; Route: IV; Rate: 1 bolus; Site: left antecubital; 14:59 Follow up: Response: No adverse reaction; IV Status: Completed infusion; IV Intake: tm6 500ml 14:31 Drug: Doxycycline PO 200 mg PO once Route: PO; tm6 14:59 Follow up: Response: No adverse reaction tm6 14:32 Drug: Clindamycin IVPB 900 mg IVPB once over 30 mins; (mix in 50 mL) Route: IVPB; tm6 Infused Over: 30 mins; Site: left antecubital; 14:59 Follow up: Response: No adverse reaction; IV Status: Completed infusion; IV Intake: [id number] 15:22 Not Given (Patient Refused): hydrocodone-acetaminophen5 mg-325 mg 1 tabs PO once tm6 15:23 Not Given (Patient Refused): Ondansetron Oral Disintegrating Tablet 4 mg PO once tm6 Disposition Summary: 07/28/24 15:03 Discharge Ordered Notes: Location: Home juana Problem: new juana Symptoms: have improved juana Condition: Stable juana Diagnosis - Pain in right foot - sp surgery, toe , metatasrsal removal juana - Cellulitis and acute lymphangitis of other sites - foot juana - Other specified diabetes mellitus with diabetic neuropathy, unspecified juana - Chronic kidney disease, unspecified juana Followup: juana - With: Private Physician - When: 2 - 3 days - Reason: Recheck today's complaints, Continuance of care, Re-evaluation by your physician Followup: juana - With: Thomas Fitzgerald MD - When: 2 - 3 days - Reason: Recheck today's complaints, Continuance of care, Re-evaluation by your physician Discharge Instructions: - Discharge Summary Sheet juana - Anemia juana - Diabetes Mellitus and Foot Care juana - Peripheral Neuropathy juana - Blood Glucose Monitoring, Adult juana - Diabetes Mellitus and Nutrition, Adult juana - Chronic Kidney Disease, Adult, [id number] juana - Preventing Diabetes Mellitus Complications juana - Foot Pain [facility] Forms: - Medication Reconciliation Form juana - Antibiotic Education juana - Prescription Opioid Use juana - Patient Portal Instructions [facility] - Leadership Thank You Letter [facility] Prescriptions: - Centany 2 % Topical ointment - apply 1 application TOPICAL route 3 times per day; 22 gram tube; Refills: 0, [facility] Product Selection Permitted - acetaminophen-codeine 300-30 mg Oral tablet - take 1 tablet ORAL route every 4 to 6 hours prn pain; 20 tablet; Refills: 0, [facility] Product Selection Permitted - Clindamycin HCl 300 mg Oral capsule - take 1 capsule ORAL route every 8 hours for 10 days; 30 capsule; Refills: 0, [facility] Product Selection Permitted - Doxycycline Hyclate 100 mg Oral Tablet - take 1 tablet ORAL route every 12 hours; 20 tablet; Refills: 0, Product [facility] Selection Permitted Signatures: Dispatcher [employer] EDMS Kyree Cox MD MD cha [place], Breana bc6 Meron Lopez RN RN tm6 Corrections: (The following items were deleted from the chart) 11:57 11:57 CBC+H.LAB.BRZ ordered. EDMS EDMS 11:57 11:57 COMPREHENSIVE METABOLIC PANEL+C.LAB.BRZ ordered. EDMS EDMS 11:57 11:57 C-REACTIVE PROTEIN+C.LAB.BRZ ordered. EDMS EDMS 11:57 11:57 Foot Right 3 View+RAD.RAD.BRZ ordered. EDMS EDMS 12:53 12:51 Diazepam IM 5 mg IM once ordered. tm6 juana
--- NOTE | 2024-07-28 15:04 | ER ---
Nurse's Notes [facility] Name: Yeyo Pelayo Age: 83 yrs Sex: Male : 1940 Arrival Date: 07/28/2024 Time: 11:48 Bed 17 Private MD: Diagnosis: Pain in right foot-sp surgery, toe , metatasrsal removal;Cellulitis and acute lymphangitis of other sites-foot;Other specified diabetes mellitus with diabetic neuropathy, unspecified;Chronic kidney disease, unspecified Presentation: 07/28 12:23 Chief complaint: Patient states: I had part of my foot cut off on 07/19. Today the home 6 health nurse said it looked red and swollen. Coronavirus screen: Client denies travel out of the [place] in the last 14 days. Ebola Screen: Patient negative for fever greater than or equal to 101.5 degrees Fahrenheit, and additional compatible Ebola Virus Disease symptoms Patient denies exposure to infectious person. Patient denies travel to an Ebola-affected area in the 21 days before illness onset. No symptoms or risks identified at this time. Initial Sepsis Screen: Does the patient meet any 2 criteria? No. Patient's initial sepsis screen is negative. Does the patient have a suspected source of infection? No. Patient's initial sepsis screen is negative. Risk Assessment: Do you want to hurt yourself or someone else? Patient reports no desire to harm self or others. Onset of symptoms was July 28, 2024. 12:23 Method Of Arrival: Wheelchair tm6 12:23 Acuity: KEN 3 tm6 Triage Assessment: 12:25 General: Appears in no apparent distress. Behavior is calm, cooperative. Pain: Denies tm6 pain. EENT: No signs and/or symptoms were reported regarding the EENT system. Neuro: Level of Consciousness is awake, alert, obeys commands, Oriented to person, place, time, situation. Cardiovascular: Patient's skin is warm and dry. Respiratory: Airway is patent Respiratory effort is even, unlabored, Respiratory pattern is regular, symmetrical. GI: No signs and/or symptoms were reported involving the gastrointestinal system. Abdomen is flat, non-distended. : No signs and/or symptoms were reported regarding the genitourinary system. Derm: Reports swelling and redness to surgery site on right foot. Musculoskeletal: No signs and/or symptoms reported regarding the musculoskeletal system. 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 - Infectious Disease History:: Denies. - Social history:: Smoking status: Patient denies any tobacco usage or history of. Screenin:30 [facility] ED Fall Risk Assessment (Adult) History of falling in the last 3 months, tm6 including since admission No falls in past 3 months (0 pts) Confusion or Disorientation No (0 pts) Intoxicated or Sedated No (0 pts) Impaired Gait Yes (1 pt) Mobility Assist Device Used No (0 pt) Altered Elimination No (0 pt) Score/Fall Risk Level 0 - 2 = Low Risk Oriented to surroundings, Maintained a safe environment, Educated pt \T\ family on fall prevention, incl call for assistance when getting out of bed. Abuse screen: Denies threats or abuse. Denies injuries from another. Nutritional screening: No deficits noted. Tuberculosis screening: No symptoms or risk factors identified. Assessment: 12:26 Reassessment: see triage assessment. tm6 14:49 Reassessment: Patient and/or family updated on plan of care and expected duration. Pain tm6 level reassessed. Patient is alert, oriented x 3, equal unlabored respirations, skin warm/dry/pink. 15:23 Reassessment: Patient and/or family updated on plan of care and expected duration. Pain tm6 level reassessed. Patient is alert, oriented x 3, equal unlabored respirations, skin warm/dry/pink. Vital Signs: 12:23 BP 127 / 62; Pulse 58; Resp 18; Temp 98.1(O); Pulse Ox 100% on R/A; MAP 78 mmHg; Weight tm6 68.04 kg; Height 6 ft. 1 in. ; Pain 0/10; 12:48 BP 154 / 89; Pulse 87; Temp 98.5; am7 14:48 BP 117 / 55; Pulse 48; Pulse Ox 100% on R/A; MAP 71 mmHg; Pain 0/10; tm6 15:23 BP 128 / 49; Pulse 45; Resp 17; Temp 98.5; Pulse Ox 100% on R/A; MAP 70 mmHg; Pain 0/10;tm6 12:23 Body Mass Index 19.79 (68.04 kg, 185.42 cm) tm6 12:23 Pain Scale: Adult tm6 14:48 Pain Scale: Adult tm6 15:23 Pain Scale: Adult tm6 ED Course: 11:53 Patient arrived in ED. ra3 11:55 Kyree Cox MD is Attending Physician. juana 12:09 Meron Lopez, CACHORRO is Primary Nurse. tm6 12:25 Triage completed. tm6 12:25 Arm band placed on right wrist. tm6 12:30 Patient has correct armband on for positive identification. Bed in low position. Call tm6 light in reach. Side rails up X 1. Provided Education on: use of call art. Client placed on continuous cardiac and pulse oximetry monitoring. NIBP monitoring applied. Pulse ox on. NIBP on. Door closed. Noise minimized. Warm blanket given. 13:01 Foot Right 3 View XRAY In Process Unspecified. EDMS 13:25 Initial lab(s) drawn, by md, sent to lab. Inserted saline lock: 22 gauge in left upper ph arm, using aseptic technique. Blood collected. Flushed with 10 mL NS. 14:49 Wound care: to right foot, surgical site was dressed with Kerlix, Vaseline gauze, tm6 Patient tolerated well. 15:03 Thomas Toscano MD is Referral Physician. juana 15:23 No provider procedures requiring assistance completed. IV discontinued, intact, tm6 bleeding controlled, No redness/swelling at site. Pressure dressing applied. Administered Medications: 12:53 CANCELLED (Duplicate Order): diazepam5 mg IM once juana 13:59 Drug: Diazepam IM 5 mg IM once Route: IM; Site: right deltoid; tm6 14:22 Follow up: Response: No adverse reaction tm6 14:23 Not Given (Duplicate Order): [id number] mg IM once tm6 14:31 Drug: NS 0.9% IV 500 ml 500 ml IV at 1 bolus once; to be given as a bolus over 30 tm6 minutes Volume: 500 ml; Route: IV; Rate: 1 bolus; Site: left antecubital; 14:59 Follow up: Response: No adverse reaction; IV Status: Completed infusion; IV Intake: tm6 500ml 14:31 Drug: Doxycycline PO 200 mg PO once Route: PO; tm6 14:59 Follow up: Response: No adverse reaction tm6 14:32 Drug: Clindamycin IVPB 900 mg IVPB once over 30 mins; (mix in 50 mL) Route: IVPB; tm6 Infused Over: 30 mins; Site: left antecubital; 14:59 Follow up: Response: No adverse reaction; IV Status: Completed infusion; IV Intake: [id number] 15:22 Not Given (Patient Refused): hydrocodone-acetaminophen5 mg-325 mg 1 tabs PO once tm6 15:23 Not Given (Patient Refused): Ondansetron Oral Disintegrating Tablet 4 mg PO once tm6 Medication: 12:30 VIS not applicable for this client. tm6 Intake: 14:59 IV: 50ml; Total: 50ml. tm6 14:59 IV: 500ml; Total: 550ml. tm6 Outcome: 15:03 Discharge ordered by MD. arias 15:24 Discharged to home via wheelchair, with family, tm6 15:24 Condition: stable 15:24 Discharge instructions given to patient, family, Instructed on discharge instructions, follow up and referral plans. medication usage, Demonstrated understanding of instructions, follow-up care, medications, Prescriptions given X 4, 15:24 Patient left the ED. tm6 Signatures: Dispatcher [employer] Kyree Eubanks MD MD cha Hall, Patricia RN RN Meron Beckett RN RN tm6 Aleksandra Saldivar 3 Yissel Goyal 7
[2024-07-28] MEDS ORDERED: ONDANSETRON 4 MG (ODT) TAB ONE (15:09)
[2024-07-28] MEDS ORDERED: HYDROCODONE/APAP 5/325 MG TAB ONE (15:10)
[2024-07-28 15:59] VITALS: O2SAT 100
[2024-07-28 16:05] VITALS: TEMP 98.5
[2024-07-28 16:17] VITALS: BP 128/49
--- NOTE | 2024-07-29 15:47 | EKG ---
Test Date: 2024-07-28 Test Time: 12:19:37 Cafe Assistant: ZEV MEASUREMENT RESULTS: Intervals: Rate: 54 FL: 252 QRSD: 144 QT: 486 QTc: 460 [place]: P: 42 FL: 252 QRS: 33 T: 32 INTERPRETIVE STATEMENTS: Sinus bradycardia with 1st degree AV block Right bundle branch block Abnormal ECG Compared to ECG 05/04/2024 16:53:14 No significant changes Electronically Signed On 07-29-24 15:45:57 VICE ADMIRAL by Mariano Mccormack
== END 2024-07-28 15:24 | disposition home or self-care (01) ==
LOC: ER 11:48
DX: L03.115 Cellulitis of right lower limb (principal); E13.40 Other specified diabetes mellitus with diabetic neuropathy, unspecified; N18.9 Chronic kidney disease, unspecified; I10 Essential (primary) hypertension; Z98.890 Other specified postprocedural states; Z89.421 Acquired absence of other right toe(s)
CPT/HCPCS: 96365; 93005; 85025; 36415; 80053; 86140; 73630; 96372; 99285; J3360; J7040; Q0162

== ENCOUNTER 2024-08-04 07:27 | Emergency (ER) | payer OTHER ==
[2024-08-04 08:17] LABS: Absolute Basophils 0.1 K/uL (0-0.5); Absolute Eosinophils 0.1 K/uL (0-0.5); Absolute Lymphocytes (CBC) 0.7 K/uL (0.7-4.9); Absolute Monocytes 0.6 K/uL (0.1-1.3); Absolute Neutrophil 8.2 K/uL (1.8-8.0); Basophils % 0.7 % (0-1.3); Eosinophils % 0.5 % (0-4.4); Hematocrit 34.8 % (39.6-49.0); Hemoglobin 11.4 g/dL (13.6-17.9); Lymphocytes % 7.2 % (15.3-44.8); MCH 29.6 pg (27.0-35.0); MCHC 32.8 g/dL (32.0-36.0); MCV 90.3 fL (80-100); MPV 7.1 fL (7.6-11.3); Monocytes % 6.1 % (3.3-12.3); Neutrophils % 85.5 % (41.7-73.7); Platelets 373 thou/uL (152-406); RBC Red Blood Cell Count 3.85 M/uL (4.33-5.43); Red Cell Distribution Width 14.1 % (12.1-15.2)
[2024-08-04 08:35] LABS: Anion Gap 9.6 mEq/L (5.0-15.0); Potassium 3.6 mEq/L (3.5-5.1); Troponin High Sensitivity 6.8 pg/mL (<58.9)
--- NOTE | 2024-08-04 08:50 | EDPHYS ---
Physician Documentation [facility] Name: Yeyo Pelayo Age: 83 yrs Sex: Male : 1940 Arrival Date: 08/04/2024 Time: 07:27 Bed 18 Private MD: ED Physician Rickie Tavares HPI: 08/04 07:32 This 83 yrs old Male presents to ER via Unassigned with complaints of Near ec2 Syncope. 07:32 Patient arrives today for evaluation of near syncope. Patient reports that he regularly ec2 has bouts of lightheadedness. States that he was using the bathroom like he typically does, states that he did not collapse, denies any chest pain, denies shortness of breath, denies abdominal pain or any nausea or vomiting. Reports that he is back to his baseline otherwise.. 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 - Infectious Disease History:: Denies. - Social history:: Smoking status: Patient denies any tobacco usage or history of. ROS: 07:32 Constitutional: as per hpi ec2 Exam: 07:32 Constitutional: GEN: NAD Head: atraumatic Eyes: EOMI Ears: External ears are ec2 normal. CV: regular rate LUNGS: no respiratory distress ABD: non-distended, soft, nontender, not guarding, not rigid SKIN: no evidence of rashes MSK: no evidence of trauma Vital Signs: 07:32 BP 162 / 70; Pulse 65; Resp 16; Temp 98; Pulse Ox 100% ; bp 08:45 BP 143 / 57; Pulse 62; Resp 16; Pulse Ox 99% ; bp 09:49 BP 138 / 50; Pulse 51; Resp 15; Pulse Ox 99% ; bp MDM: 07:31 Medical Screening Exam initiated ec2 07:32 Data reviewed: vital signs, nurses notes. ED course: Patient arrives today for ec2 evaluation of lightheadedness. Examination is revealing for well-appearing nontoxic individuals otherwise in no acute distress with a reassuring examination. Will obtain lab work, EKG. Differential diagnosis include processes such as electrolyte disturbances, anemia, dehydration, arrhythmia.. 08:48 ED course: Labs are reassuring. EKG independently reviewed and interpreted by me, shows ec2 normal sinus rhythm, rate of 57, no acute ST segment elevations, intervals are nonactionable, right bundle branch block noted. On reassessment patient remains well-appearing no acute distress, patient hemodynamically stable. Will discharge home. Return precautions given.. 08:49 ED course: Patient with greater dysfunction noted, baseline when compared to external ec2 labs.. 08/04 07:31 Order name: Basic Metabolic Panel; Complete Time: 08:39 ec2 08/04 07:31 Order name: CBC with Diff; Complete Time: 09:15 ec2 08/04 07:31 Order name: Troponin HS; Complete Time: 08:39 ec2 08/04 09:08 Order name: Manual Differential; Complete Time: 09:15 EDMS 08/04 07:31 Order name: EKG; Complete Time: 07:32 ec2 08/04 07:31 Order name: Cardiac monitoring; Complete Time: 07:38 ec2 08/04 07:31 Order name: EKG - Nurse/Tech; Complete Time: 08:46 ec2 08/04 07:31 Order name: IV Saline Lock; Complete Time: 08:46 ec2 08/04 07:31 Order name: Labs collected and sent; Complete Time: 08:46 ec2 08/04 07:31 Order name: O2 Per Protocol; Complete Time: 07:38 ec2 08/04 07:31 Order name: O2 Sat Monitoring; Complete Time: 07:38 ec2 Administered Medications: 08:58 Drug: hydrOXYzine PO 50 mg PO once Route: PO; bp 08:58 Follow up: Response: No adverse reaction bp Disposition Summary: 08/04/24 08:49 Discharge Ordered Notes: Location: Home ec2 Condition: Stable ec2 Diagnosis - Near Syncope ec2 - Anemia, unspecified ec2 - Renal Dysfunction ec2 Followup: ec2 - With: Private Physician - When: - Reason: Re-evaluation by your physician Discharge Instructions: - Discharge Summary Sheet ec2 - Near-Syncope, [id number] ec2 Forms: - Medication Reconciliation Form ec2 - Antibiotic Education ec2 - Prescription Opioid Use ec2 - Patient Portal Instructions ec2 - Leadership Thank You Letter ec2 Signatures: Dispatcher [employer] Jeff Parada RN RN Rickie Mesa MD MD ec2 Corrections: (The following items were deleted from the chart) 08:32 CBC Smear Scan ordered. EDMS EDMS
--- NOTE | 2024-08-04 08:50 | ER ---
Nurse's Notes [facility] Name: Yeyo Pelayo Age: 83 yrs Sex: Male : 1940 Arrival Date: 08/04/2024 Time: 07:27 Bed 18 Private MD: Diagnosis: Near Syncope;Anemia, unspecified;Renal Dysfunction Presentation: 08/04 07:32 Chief complaint: EMS states: NEAR SYNCOPE AT HOME AFTER TAKING MORNING ATIVAN PILL. bp Coronavirus screen: At this time, the client does not indicate any symptoms associated with coronavirus-19. Ebola Screen: No symptoms or risks identified at this time. Initial Sepsis Screen: Does the patient meet any 2 criteria? No. Patient's initial sepsis screen is negative. Does the patient have a suspected source of infection? No. Patient's initial sepsis screen is negative. Risk Assessment: Do you want to hurt yourself or someone else? Patient reports no desire to harm self or others. Onset of symptoms was August 04, 2024. Care prior to arrival: Glucose check: 224. 07:32 Method Of Arrival: EMS: [facility] bp 07:32 Acuity: KEN 3 bp Triage Assessment: 07:33 General: Appears in no apparent distress. Behavior is cooperative, appropriate for age, bp anxious. Pain: Denies pain. EENT: No deficits noted. Neuro: Level of Consciousness is awake, alert, obeys commands, Oriented to Appropriate for age Reports NEAR SYNCOPE. Cardiovascular: No deficits noted. Respiratory: No deficits noted. GI: No signs and/or symptoms were reported involving the gastrointestinal system. : No signs and/or symptoms were reported regarding the genitourinary system. Derm: No deficits noted. Musculoskeletal: No deficits noted. 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 - Infectious Disease History:: Denies. - Social history:: Smoking status: Patient denies any tobacco usage or history of. Screenin:35 [facility] ED Fall Risk Assessment (Adult) History of falling in the last 3 months, bp including since admission No falls in past 3 months (0 pts) Confusion or Disorientation No (0 pts) Intoxicated or Sedated No (0 pts) Impaired Gait No (0 pts) Mobility Assist Device Used No (0 pt) Altered Elimination No (0 pt) Score/Fall Risk Level 0 - 2 = Low Risk Oriented to surroundings. Abuse screen: Denies threats or abuse. Denies injuries from another. Nutritional screening: No deficits noted. Tuberculosis screening: No symptoms or risk factors identified. Assessment: 07:36 General: Appears in no apparent distress. Behavior is cooperative, appropriate for age, bp anxious. 09:00 Reassessment: DC ON HOLD PENDING FAMILY FOR TRANSPORT. bp 09:49 Reassessment: PT DC WITH FAMILY. bp Vital Signs: 07:32 BP 162 / 70; Pulse 65; Resp 16; Temp 98; Pulse Ox 100% ; bp 08:45 BP 143 / 57; Pulse 62; Resp 16; Pulse Ox 99% ; bp 09:49 BP 138 / 50; Pulse 51; Resp 15; Pulse Ox 99% ; bp ED Course: 07:31 Patient arrived in ED. ty 07:31 Rickie Tavares MD is Attending Physician. ec2 07:31 Jeff Sutherland, CACHORRO is Primary Nurse. bp 07:33 Triage completed. bp 07:33 Arm band placed on. bp 07:35 Patient has correct armband on for positive identification. bp 08:07 Initial lab(s) drawn, by wa, sent to lab. Inserted saline lock: 22 gauge in right hb forearm, using aseptic technique. Blood collected. Flushed with 10 mL NS. 08:54 EKG done, by ED staff, reviewed by Rickie Tavares MD. nh2 09:16 Family called for transportation. ty 09:49 No provider procedures requiring assistance completed. IV discontinued, intact, bp bleeding controlled, No redness/swelling at site. Pressure dressing applied. Administered Medications: 08:58 Drug: hydrOXYzine PO 50 mg PO once Route: PO; bp 08:58 Follow up: Response: No adverse reaction bp Medication: 09:49 VIS not applicable for this client. bp Outcome: 08:49 Discharge ordered by . ec2 09:49 Discharged to home ambulatory, with family, bp 09:49 Condition: stable 09:49 Discharge instructions given to patient, family, Instructed on discharge instructions, follow up and referral plans. Demonstrated understanding of instructions, follow-up care, 09:51 Patient left the ED. bp Signatures: Tabby Diamond RN RN hb Jeff Sutherland RN RN bp Rickie Tavares MD MD ec2 Terry [address] [place], [place] [id number]
[2024-08-04] MEDS ORDERED: hydrOXYzine HCL 25 MG TAB ONE (08:55)
[2024-08-04 09:07] LABS: Band Neutrophils 1 % (0-1); Differential Total Cells Count 100; Eosinophils 2 % (0-3); Lymphocytes 7 % (15-42); Metamyelocytes 1 % (0-0); Monocytes 5 % (0-10); Segmented Neutrophils 84 % (40-80)
[2024-08-04 09:08] LABS: Blood Morphology Comment NOT SEEN (NOT SEEN); Platelet Estimate ADEQ
[2024-08-04 09:58] VITALS: TEMP 98
[2024-08-04 09:59] VITALS: O2SAT 99
[2024-08-04 10:00] VITALS: BP 138/50
--- NOTE | 2024-08-05 15:42 | EKG ---
Test Date: 2024-08-04 Test Time: 08:44:13 Loading Shovel Oiler: VANIA MEASUREMENT RESULTS: Intervals: Rate: 57 IL: 248 QRSD: 134 QT: 496 QTc: 482 [place]: P: 83 IL: 248 QRS: 55 T: 48 INTERPRETIVE STATEMENTS: Sinus bradycardia with 1st degree AV block Right bundle branch block Abnormal ECG Compared to ECG 07/28/2024 12:19:37 No significant changes Electronically Signed On 08-05-24 15:40:34 NATURAL RESOURCE OFFICER by Mariano Mccormack
== END 2024-08-04 09:51 | disposition home or self-care (01) ==
LOC: ER 07:27
DX: R55 Syncope and collapse (principal); D64.9 Anemia, unspecified; N28.9 Disorder of kidney and ureter, unspecified; I10 Essential (primary) hypertension; E11.9 Type 2 diabetes mellitus without complications
CPT/HCPCS: 36415; 80048; 84484; 85025; 93005; 99284

== ENCOUNTER 2024-08-31 13:13 | Emergency (ER) | payer OTHER ==
[2024-08-31] MEDS ORDERED: FENTANYL CITR 100 MCG/2 ML ONE (14:27)
[2024-08-31 14:29] LABS: Absolute Eosinophils 0.1 K/uL (0-0.5); Absolute Lymphocytes (CBC) 0.9 K/uL (0.7-4.9); Absolute Neutrophil 7.8 K/uL (1.8-8.0); Basophils % 0.4 % (0-1.3); Eosinophils % 1.1 % (0-4.4); Hematocrit 32.3 % (39.6-49.0); MCH 30.7 pg (27.0-35.0); MCV 90.3 fL (80-100); MPV 7.3 fL (7.6-11.3); Monocytes % 9.9 % (3.3-12.3); Neutrophils % 79.6 % (41.7-73.7); Platelets 291 thou/uL (152-406); RBC Red Blood Cell Count 3.57 M/uL (4.33-5.43); Red Cell Distribution Width 14.9 % (12.1-15.2)
[2024-08-31 15:04] LABS: Albumin 2.6 g/dL (3.4-5.0); Albumin/Globulin Ratio 0.6 (1.1-1.8); Alkaline Phosphatase 112 U/L (45-117); Anion Gap 9.7 mEq/L (5.0-15.0); BUN Blood Urea Nitrogen 36 mg/dL (7-18); Bicarbonate 23 mEq/L (21-32); Bilirubin Total 0.3 mg/dL (0.2-1.0); Globulin 4.7 g/dL (2.3-3.5); Glomerular Filtration Rate 39 ml/min (=/>90); Glucose Level 345 mg/dL (74-106); Protein, Total 7.3 g/dL (6.4-8.2); Sodium Level 130 mEq/L (136-145); Troponin High Sensitivity 6.7 pg/mL (<58.9)
[2024-08-31 15:14] LABS: ALT/SGPT < 14 U/L (16-61); AST/SGOT 11 U/L (15-37); Bilirubin Direct < 0.2 mg/dL (0-0.2); Bilirubin Indirect, Calculated 0.1 mg/dL (0.2-0.8); Magnesium 2.6 mg/dL (1.6-2.4); Potassium 4.7 mEq/L (3.5-5.1)
[2024-08-31] MEDS ORDERED: NA CHLORIDE 0.9% 500 ML ONE (15:42)
[2024-08-31] MEDS ORDERED: INSULIN REGULAR (HUMAN) 100 UNIT/ML ONE (15:42)
--- NOTE | 2024-08-31 17:46 | ER ---
Nurse's Notes [facility] Name: Yeyo Pelayo Age: 83 yrs Sex: Male : 1940 Arrival Date: 08/31/2024 Time: 13:13 Bed 19 Private MD: Diagnosis: Pain, unspecified;Foot Laceration/ Open wound of foot-chronic right foot;Diabetes mellitus due to underlying condition with hyperglycemia Presentation: 08/31 13:25 Chief complaint: Patient states: sent from wound care for evaluation, pt states "I just aa5 don't feel good, I feel very anxious and my whole body hurts". Coronavirus screen: At this time, the client does not indicate any symptoms associated with coronavirus-19. Ebola Screen: Patient denies travel to an Ebola-affected area in the 21 days before illness onset. Initial Sepsis Screen: Does the patient meet any 2 criteria? No. Patient's initial sepsis screen is negative. Does the patient have a suspected source of infection? No. Patient's initial sepsis screen is negative. Risk Assessment: Do you want to hurt yourself or someone else? Patient reports no desire to harm self or others. Onset of symptoms was August 31, 2024. 13:25 Acuity: KEN 3 aa5 13:25 Method Of Arrival: Wheelchair aa5 Triage Assessment: 13:28 General: Appears uncomfortable, Behavior is anxious. Neuro: Level of Consciousness is aa5 awake, alert, obeys commands, Oriented to person, place, time, situation. Respiratory: Airway is patent Respiratory effort is even, Respiratory pattern is hyperventilation. Derm: Skin is pink, warm \\T\\ dry. 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 - Infectious Disease History:: Denies. - Social history:: Smoking status: Patient denies any tobacco usage or history of. Screenin:25 [facility] ED Fall Risk Assessment (Adult) History of falling in the last 3 months, rs5 including since admission No falls in past 3 months (0 pts) Confusion or Disorientation No (0 pts) Intoxicated or Sedated No (0 pts) Impaired Gait Yes (1 pt) Mobility Assist Device Used Yes (1 pt) Altered Elimination No (0 pt) Score/Fall Risk Level 0 - 2 = Low Risk Oriented to surroundings, Maintained a safe environment. Abuse screen: Denies threats or abuse. Nutritional screening: No deficits noted. Tuberculosis screening: No symptoms or risk factors identified. Assessment: 17:05 Reassessment: to bedside for bs check, blood sugar results 106. provider notified . rs5 Vital Signs: 13:25 BP 152 / 67; Pulse 65; Resp 26 S; Temp 97.5(O); Pulse Ox 100% on R/A; Weight 64.86 kg aa5 (R); Height 6 ft. 0 in. (R); 17:07 BP 137 / 72; Pulse 70; Resp 17; Temp 98; Pulse Ox 99% ; rs5 13:25 Body Mass Index 19.39 (64.86 kg, 182.88 cm) aa5 ED Course: 13:15 Patient arrived in ED. mr 13:17 Kyree Villatoro PA is PHCP. cp 13:17 Kyree Cox MD is Attending Physician. cp 13:25 Arm band placed on. aa5 13:25 Patient has correct armband on for positive identification. Bed in low position. Call rs5 light in reach. Side rails up X2. 13:25 No provider procedures requiring assistance completed. Inserted saline lock: 20 gauge rs5 in right antecubital area, using aseptic technique. 13:27 Triage completed. aa5 13:32 Jeff Sutherland, CACHORRO is Primary Nurse. bp 17:44 Thomas Toscano MD is Referral Physician. cp 18:05 IV discontinued, intact, bleeding controlled, No redness/swelling at site. Pressure rs5 dressing applied. Administered Medications: 13:30 CANCELLED (Physician Discretion): ns 0.9% 250 ml IV at calculated rate once; to be cp given as a bolus over 30 minutes 14:30 Drug: fentaNYL (PF) IVP 25 mcg IVP once Route: IVP; Site: left upper arm; bp 14:54 Follow up: Response: No adverse reaction bp 15:50 Drug: NS 0.9% IV 500 ml 500 ml IV at 1 bolus once; to be given as a bolus over 60 rs5 minutes Volume: 500 ml; Route: IV; Rate: 1 bolus; Site: right antecubital; 16:20 Follow up: Response: No adverse reaction; IV Status: Completed infusion; IV Intake: rs5 500ml 15:50 Drug: Insulin Regular Human IVP 10 units IVP once {Co-Signature: aa5 (Genna Block rs5 RN).} Route: IVP; Site: right antecubital; 16:22 Follow up: Response: No adverse reaction; Other; blood sugar decreased rs5 18:00 Drug: Doxycycline PO 100 mg PO once Route: PO; rs5 Medication: 16:00 VIS not applicable for this client. rs5 Intake: 16:20 IV: 500ml; Total: 500ml. rs5 Outcome: 17:45 Discharge ordered by . cp 18:05 Discharged to home via wheelchair, with family, rs5 18:05 Condition: stable rs5 18:05 Discharge instructions given to patient, family, Instructed on discharge instructions, follow up and referral plans. medication usage, Demonstrated understanding of instructions, follow-up care, medications, Prescriptions given X 1, 18:09 Patient left the ED. rs5 Signatures: Ebony Martinez, Reg Reg mr Genna Block, RN RN aa5 Kyree Villatoro PA PA cp Peltier, Brian, CACHORRO RN Cristian Chi, CACHORRO RN rs5 Genna Block RN aa5 Corrections: (The following items were deleted from the chart) 17:07 17:05 Reassessment: to bedside for bs check, blood sugar results 106. rs5 rs5
--- NOTE | 2024-08-31 17:46 | EDPHYS ---
Physician Documentation [facility] Name: Yeyo Pelayo Age: 83 yrs Sex: Male : 1940 Arrival Date: 08/31/2024 Time: 13:13 Bed 19 Private MD: ED Physician Kyree Cox HPI: 08/31 13:33 This 83 yrs old Male presents to ER via Wheelchair with complaints of Pain All Over. cp 13:33 pain all over and anxiety. cp 13:33 Onset: The symptoms/episode began/occurred acutely, today, while at wound care for cp management of chronic wound to right foot. Severity of symptoms: in the emergency department the symptoms are unchanged. 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 - Infectious Disease History:: Denies. - Social history:: Smoking status: Patient denies any tobacco usage or history of. ROS: 13:45 Constitutional: Positive for pain all over, Negative for body aches, chills, fever, cp 13:45 Cardiovascular: Negative for chest pain, edema, palpitations, 13:45 Respiratory: Negative for cough, shortness of breath, wheezing, Exam: 13:45 Constitutional: The patient appears in no acute distress, alert, awake, cp non-diaphoretic, non-toxic, well developed, well nourished, 13:45 Head/Face: Normocephalic, atraumatic. cp 13:45 Eyes: Periorbital structures: appear normal, Conjunctiva: normal, no exudate, no injection, Sclera: no appreciated abnormality, Lids and lashes: appear normal, bilaterally, 13:45 ENT: External ear(s): are unremarkable, Nose: is normal, Mouth: Lips: moist, Oral mucosa: moist, Posterior pharynx: Airway: no evidence of obstruction, patent, 13:45 Neck: ROM/movement: is normal, is supple, without pain, no range of motions limitations, 13:45 Chest/axilla: Inspection: normal, 13:45 Cardiovascular: Rate: normal, Rhythm: regular, Edema: is not appreciated, JVD: is not appreciated, 13:45 Respiratory: the patient does not display signs of respiratory distress, Respirations: normal, no use of accessory muscles, no retractions, labored breathing, is not present, Breath sounds: are clear throughout, no decreased breath sounds, no stridor, no wheezing, 13:45 Abdomen/GI: Inspection: abdomen appears normal, Palpation: abdomen is soft and non-tender, in all quadrants, 13:45 Neuro: Orientation: to person, place \T\ time. Mentation: is normal, Motor: moves all fours, no focal deficits, 13:45 Musculoskeletal/extremity: Extremities: noted in the right foot: amputation site cp lateral side of foot appears with mild drainage, mild erythema, 14:59 ECG was reviewed by the Attending Physician. cp Vital Signs: 13:25 BP 152 / 67; Pulse 65; Resp 26 S; Temp 97.5(O); Pulse Ox 100% on R/A; Weight 64.86 kg aa5 (R); Height 6 ft. 0 in. (R); 17:07 BP 137 / 72; Pulse 70; Resp 17; Temp 98; Pulse Ox 99% ; rs5 13:25 Body Mass Index 19.39 (64.86 kg, 182.88 cm) aa5 MDM: 13:22 Medical Screening Exam initiated cp 14:00 Differential Diagnosis sepsis, flu, anxiety, chronic pain. cp 17:45 Data reviewed: vital signs, nurses notes, lab test result(s), EKG, and as a result, I cp will discharge patient. 17:45 Consideration of Admission/Observation Escalation of care including cp admission/observation considered. I considered the following discharge prescriptions or medication management in the emergency department Medications were administered in the Emergency Department. See MAR. Counseling: I had a detailed discussion with the patient and/or guardian regarding the historical points, exam findings, and any diagnostic results supporting the discharge/admit diagnosis, lab results, the need for outpatient follow up, a general surgeon, wound care, to return to the emergency department if symptoms worsen or persist or if there are any questions or concerns that arise at home. Response to treatment: the patient's symptoms have markedly improved after treatment, and as a result, I will discharge patient. ED course: Patient requests discharge and would like to f/u outpatient for wound management. 08/31 13:29 Order name: Basic Metabolic Panel; Complete Time: 15:26 cp 08/31 15:26 Interpretation: Normal except: NA 130; GLUC 345; BUN 36; CRE 1.74; GFR 39; CA 8.2. cp 08/31 13:29 Order name: CBC with Diff; Complete Time: 14:50 cp 08/31 14:50 Interpretation: Normal except: RBC 3.57; HGB 11.0; HCT 32.3; MPV 7.3; MIKAEL% 79.6; LYM% cp 9.0. 08/31 13:29 Order name: LFT's; Complete Time: 15:26 cp 08/31 15:26 Interpretation: Normal except: AST 11; ALT < 14; IBILI, CALC 0.1; ALB 2.6; GLOB 4.7; cp A/G 0.6. 08/31 13:29 Order name: Magnesium; Complete Time: 15:26 cp 08/31 15:26 Interpretation: Abnormal: MG 2.6. cp 08/31 13:29 Order name: Troponin HS; Complete Time: 15:26 cp 08/31 15:45 Interpretation: Reviewed. cp 08/31 13:29 Order name: Lactate w/ 2H reflex if indic.; Complete Time: 15:13 cp 08/31 15:13 Interpretation: Reviewed. cp 08/31 17:15 Order name: Glucose, Ancillary Testing; Complete Time: 17:23 EDMS 08/31 17:23 Interpretation: Reviewed. cp 08/31 13:29 Order name: EKG; Complete Time: 13:30 cp 08/31 13:29 Order name: Cardiac monitoring; Complete Time: 14:25 cp 08/31 13:29 Order name: EKG - Nurse/Tech; Complete Time: 14:54 cp 08/31 13:29 Order name: IV Saline Lock; Complete Time: 14:54 cp 08/31 13:29 Order name: Labs collected and sent; Complete Time: 14:54 cp 08/31 13:29 Order name: O2 Per Protocol; Complete Time: 14:25 cp 08/31 13:29 Order name: O2 Sat Monitoring; Complete Time: 14:25 cp 08/31 13:52 Order name: Accucheck Blood Glucose; Complete Time: 14:54 cp 08/31 15:57 Order name: Wound dressing: right foot; Complete Time: 16:21 cp 08/31 16:28 Order name: Accucheck Blood Glucose; Complete Time: 17:07 cp EC:59 Rate is 58 beats/min. Rhythm is regular. CT interval is prolonged at 248 msec. QRS cp interval is prolonged at 122 msec. QT interval is normal. T waves are Inverted in lead aVR. Interpreted by me. Reviewed by me. Administered Medications: 13:30 CANCELLED (Physician Discretion): ns 0.9% 250 ml IV at calculated rate once; to be cp given as a bolus over 30 minutes 14:30 Drug: fentaNYL (PF) IVP 25 mcg IVP once Route: IVP; Site: left upper arm; bp 14:54 Follow up: Response: No adverse reaction bp 15:50 Drug: NS 0.9% IV 500 ml 500 ml IV at 1 bolus once; to be given as a bolus over 60 rs5 minutes Volume: 500 ml; Route: IV; Rate: 1 bolus; Site: right antecubital; 16:20 Follow up: Response: No adverse reaction; IV Status: Completed infusion; IV Intake: rs5 500ml 15:50 Drug: Insulin Regular Human IVP 10 units IVP once {Co-Signature: aa5 (Genna Block rs5 RN).} Route: IVP; Site: right antecubital; 16:22 Follow up: Response: No adverse reaction; Other; blood sugar decreased rs5 18:00 Drug: Doxycycline PO 100 mg PO once Route: PO; rs5 Disposition: 09/01 09:38 Co-signature as Attending Physician, Kyree Cox MD I agree with the assessment and juana plan of care. 14:49 Chart complete. cp Disposition Summary: 08/31/24 17:45 Discharge Ordered Notes: Location: Home cp Problem: new cp Symptoms: have improved cp Condition: Stable cp Diagnosis - Pain, unspecified cp - Foot Laceration/ Open wound of foot - chronic right foot cp - Diabetes mellitus due to underlying condition with hyperglycemia cp Followup: cp - With: Thomas Toscano MD - When: 2 - 3 days - Reason: Wound Recheck Discharge Instructions: - Discharge Summary Sheet cp - Hyperglycemia cp - Daily Diabetes Mellitus Record cp - Blood Glucose Monitoring, Adult cp - Diabetes Mellitus and Nutrition, Adult cp - Wound Care, Adult cp Forms: - Medication Reconciliation Form cp - Antibiotic Education cp - Prescription Opioid Use cp - Patient Portal Instructions cp - Leadership Thank You Letter cp Prescriptions: - Doxycycline Hyclate 100 mg Oral Tablet - take 1 tablet ORAL route every 12 hours; 20 tablet; Refills: 0, Product cp Selection Permitted Signatures: Dispatcher [employer] EDKyree Tan MD MD cha Calderon, Audri, RN RN aa5 Kyree Villatoro PA PA cp Peltier, Brian, RN RN Cristian Valladares RN RN rs5 Genna Block RN aa5 Corrections: (The following items were deleted from the chart) 08/31 13:30 13:30 NS 0.9% IV 250 ml IV at calculated rate once; to be given as a bolus over 30 cp minutes ordered. cp
[2024-08-31] MEDS ORDERED: DOXYCYCLINE 100 MG CAP PO ONE (17:58)
--- NOTE | 2024-09-01 11:49 | EKG ---
Test Date: 2024-08-31 Test Time: 14:52:33 [employer]seed [employer] Order Filler: MASHA MEASUREMENT RESULTS: Intervals: Rate: 58 NM: 248 QRSD: 122 QT: 456 QTc: 447 [place]: P: 71 NM: 248 QRS: 51 T: 49 INTERPRETIVE STATEMENTS: Sinus bradycardia with 1st degree AV block Right bundle branch block Abnormal ECG Compared to ECG 08/31/2024 14:50:38 No significant changes Electronically Signed On 09-01-24 11:49:08 CERT OCCUPATIONAL THERAPY ASST by Mariano Mccormack
--- NOTE | 2024-09-01 11:50 | EKG ---
Test Date: 2024-08-31 Test Time: 14:50:38 Mold Stripper: MASHA MEASUREMENT RESULTS: Intervals: Rate: 58 [place]: 242 QRSD: 126 QT: 482 QTc: 473 [place]: P: 73 WA: 242 QRS: 32 T: 28 INTERPRETIVE STATEMENTS: Sinus bradycardia with 1st degree AV block Right bundle branch block Abnormal ECG Compared to ECG 08/04/2024 08:44:13 No significant changes Electronically Signed On 09-01-24 11:49:16 FIBER [employer] TECHNICIAN by Mariano Mccormack
[2024-09-02 02:23] VITALS: BP 137/72; TEMP 98; O2SAT 99
== END 2024-08-31 18:09 | disposition home or self-care (01) ==
LOC: ER 13:13
DX: R52 Pain, unspecified (principal); E11.65 Type 2 diabetes mellitus with hyperglycemia; S91.301A Unspecified open wound, right foot, initial encounter; E11.9 Type 2 diabetes mellitus without complications; I10 Essential (primary) hypertension; N20.0 Calculus of kidney; N18.9 Chronic kidney disease, unspecified; F41.9 Anxiety disorder, unspecified
CPT/HCPCS: 93005 ×2; 85025; 80048; 36415; 83735; 82947; 80076; 83605; 84484; 99284; J3010; J7040

== ENCOUNTER 2024-09-19 14:09 | Inpatient (IN) | payer OTHER ==
--- NOTE | 2024-09-19 15:38 | ER ---
Nurse's Notes [facility] Name: Yeyo Pelayo Age: 84 yrs Sex: Male : 1940 Arrival Date: 09/19/2024 Time: 14:09 Bed 17 Private MD: Diagnosis: Right lateral foot wound;Peripheral vascular disease, unspecified Presentation: 09/19 14:53 Chief complaint: Chronic wound on right foot being treated by Dr. Toscano, had stent in hb leg placed today and was informed he needed to come to the ED today to see Dr. Toscano to evaluate foot. Coronavirus screen: At this time, the client does not indicate any symptoms associated with coronavirus-19. Ebola Screen: No symptoms or risks identified at this time. Initial Sepsis Screen: Does the patient meet any 2 criteria? No. Patient's initial sepsis screen is negative. Does the patient have a suspected source of infection? No. Patient's initial sepsis screen is negative. Risk Assessment: Do you want to hurt yourself or someone else? Patient reports no desire to harm self or others. Onset of symptoms was September 19, 2024. 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 - Infectious Disease History:: Denies. - Social history:: Smoking status: Patient denies any tobacco usage or history of. Screenin:09 [facility] ED Fall Risk Assessment (Adult) History of falling in the last 3 months, kj2 including since admission No falls in past 3 months (0 pts) Confusion or Disorientation No (0 pts) Intoxicated or Sedated No (0 pts) Impaired Gait Yes (1 pt) Mobility Assist Device Used Yes (1 pt) Altered Elimination No (0 pt) Score/Fall Risk Level 0 - 2 = Low Risk Maintained a safe environment, Hourly rounding (assess needs \T\ fall precautionary measures) done. Abuse screen: Denies threats or abuse. Denies injuries from another. Nutritional screening: No deficits noted. Tuberculosis screening: No symptoms or risk factors identified. Assessment: 15:07 General: Appears in no apparent distress. Behavior is calm, cooperative. Pain: hemal Complains of pain in right leg Pain currently is 5 out of 10 on a pain scale. Neuro: Level of Consciousness is awake, alert, obeys commands, Oriented to person, place, time, situation. Cardiovascular: Patient's skin is warm and dry. right leg redness. Respiratory: Airway is patent Respiratory effort is unlabored. GI: No signs and/or symptoms were reported involving the gastrointestinal system. : No signs and/or symptoms were reported regarding the genitourinary system. 16:00 Reassessment: Patient appears in no apparent distress at this time. Patient and/or hemal family updated on plan of care and expected duration. Pain level reassessed. Patient is alert, oriented x 3, equal unlabored respirations, skin warm/dry/pink. 17:00 Reassessment: Patient appears in no apparent distress at this time. Patient and/or hemal family updated on plan of care and expected duration. Pain level reassessed. Patient is alert, oriented x 3, equal unlabored respirations, skin warm/dry/pink. 18:00 Reassessment: Patient appears in no apparent distress at this time. Patient and/or hemal family updated on plan of care and expected duration. Pain level reassessed. Patient is alert, oriented x 3, equal unlabored respirations, skin warm/dry/pink. 19:00 Reassessment: Patient appears in no apparent distress at this time. Patient and/or casimiro2 family updated on plan of care and expected duration. Pain level reassessed. Patient is alert, oriented x 3, equal unlabored respirations, skin warm/dry/pink. Vital Signs: 14:53 Pulse 59; Resp 16; Temp 97.8; Pulse Ox 100% on R/A; Pain 8/10; hb 15:09 Weight 70.76 kg; Height 6 ft. 0 in. ; kj2 16:00 BP 150 / 50; Pulse 56; Resp 18; Pulse Ox 98% on R/A; kj2 17:00 BP 148 / 61; Pulse 60; Resp 18; Pulse Ox 100% on R/A; kj2 18:00 BP 145 / 64; Pulse 91; Resp 18; Pulse Ox 98% on R/A; kj2 19:34 BP 135 / 56; Pulse 65; Resp 20; Pulse Ox 98% on R/A; kj2 15:09 Body Mass Index 21.16 (70.76 kg, 182.88 cm) kj2 14:53 Pain Scale: Adult hb ED Course: 14:10 Patient arrived in ED. mr 14:34 Marco Antonio Riley DO is Attending Physician. ms3 14:55 Triage completed. hb 14:56 Arm band placed on. hb 15:00 Patient has correct armband on for positive identification. Bed in low position. Call kj2 light in reach. Adult w/ patient. Provided Education on: call light. 15:07 Rima Urena, CACHORRO is Primary Nurse. kj2 15:36 Jose Madera MD is Hospitalizing Provider. ms3 22:44 No provider procedures requiring assistance completed. Patient admitted, IV remains in ha1 place. Administered Medications: 16:47 Drug: Piperacillin-Tazobactam IVPB 3.375 grams IVPB once over 60 mins; (mix in NS 100 kj2 mL) Route: IVPB; Infused Over: 60 mins; Site: left antecubital; 17:30 Follow up: IV Status: Completed infusion kj2 19:30 Follow up: IV Status: Completed infusion kj2 17:18 Drug: morphine IVP or IV 2 mg IVP once over 4 mins Route: IVP; Infused Over: 4 mins; kj2 Site: left antecubital; 19:29 Follow up: Response: No adverse reaction kj2 17:30 Drug: vancoMYCIN IVPB 1 grams IVPB once over 2 hrs Route: IVPB; Infused Over: 2 hrs; kj2 Site: left antecubital; 19:29 Follow up: Response: No adverse reaction kj2 Medication: 15:09 VIS not applicable for this client. kj2 Outcome: 15:37 Decision to Hospitalize by Provider. ms3 22:44 Admitted to Med/surg accompanied by tech, via stretcher, room 207, with chart, ha1 22:44 Condition: stable 22:44 Instructed on the need for admit, 22:45 Patient left the ED. ha1 Signatures: Ebony Martinez, Reg Reg mr Tabby Diamond RN RN Marco Antonio Riley DO DO ms3 Radha Dorantes RN RN ha1 Rima Urena RN RN kj2 Corrections: (The following items were deleted from the chart) 16:46 16:46 vancoMYCIN IVPB 1 grams IVPB in left antecubital over 2 hrs kj2 kj2
--- NOTE | 2024-09-19 15:38 | EDPHYS ---
Physician Documentation [facility] Name: Yeyo Pelayo Age: 84 yrs Sex: Male : 1940 Arrival Date: 09/19/2024 Time: 14:09 Bed 17 Private MD: ED Physician Marco Antonio Riley HPI: 09/19 15:02 This 84 yrs old Male presents to ER via Wheelchair with complaints of Post Surgical ms3 Pain, Right leg infection. 15:02 Yeyo Pelayo is an 84-year-old male with a past medical history of type 2 diabetes, ms3 hypertension, and kidney issues. He is presenting to the Emergency Department due to right foot infection. Patient was seen by Dr Bella today and a stent was placed. Per patient and their family patient still has blockage after placement of sten. Dr Bella and Dr Toscano recommended the patient come to the ER prior to going home.. 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 - Infectious Disease History:: Denies. - Social history:: Smoking status: Patient denies any tobacco usage or history of. ROS: 15:02 Constitutional: Negative for fever, and chills. Cardiovascular: Negative for chest ms3 pain, and palpitations. Respiratory: Negative for shortness of breath, cough, wheezing, and pleuritic chest pain, Abdomen/GI: Negative for abdominal pain, nausea, vomiting, diarrhea, and constipation, 15:02 MS/extremity: Positive for right foot wounds, Exam: 15:02 Constitutional: This is a well developed, well nourished patient who is awake, alert, ms3 and in no acute distress. Respiratory: Lungs have equal breath sounds bilaterally, clear to auscultation and percussion. No rales, rhonchi or wheezes noted. No increased work of breathing, no retractions or nasal flaring. Abdomen/GI: Soft, non-tender, with normal bowel sounds. No distension or tympany. No guarding or rebound. No evidence of tenderness throughout. MS/ Extremity: Pulses equal, no cyanosis. Neurovascular intact. Full, normal range of motion. 15:02 Skin: Drainage from lateral foot with open wound. Vital Signs: 14:53 Pulse 59; Resp 16; Temp 97.8; Pulse Ox 100% on R/A; Pain 8/10; hb 15:09 Weight 70.76 kg; Height 6 ft. 0 in. ; kj2 16:00 BP 150 / 50; Pulse 56; Resp 18; Pulse Ox 98% on R/A; kj2 17:00 BP 148 / 61; Pulse 60; Resp 18; Pulse Ox 100% on R/A; kj2 18:00 BP 145 / 64; Pulse 91; Resp 18; Pulse Ox 98% on R/A; kj2 19:34 BP 135 / 56; Pulse 65; Resp 20; Pulse Ox 98% on R/A; kj2 15:09 Body Mass Index 21.16 (70.76 kg, 182.88 cm) kj2 14:53 Pain Scale: Adult hb MDM: 15:00 Medical Screening Exam initiated ms3 15:02 Differential diagnosis: cellulitis, Peripheral Artery disease. ms3 17:25 Data reviewed: vital signs, nurses notes, lab test result(s), and as a result, I will ms3 admit patient. Consideration of Admission/Observation Patient was admitted/placed on observation. Management of patient was discussed with the following: Hospitalist: Dr Madera. Technical Project Coordinator: Dr Toscano. I considered the following discharge prescriptions or medication management in the emergency department Medications were administered in the Emergency Department. See MAR. Counseling: I had a detailed discussion with the patient and/or guardian regarding the historical points, exam findings, and any diagnostic results supporting the discharge/admit diagnosis, lab results, the need for further work-up and treatment in the hospital. ED course: Discussed necessity for admission with patient and his . They understand and agree with plan. All questions were answered.. 09/19 15:21 Order name: CBC with Diff; Complete Time: 16:37 ms3 09/19 15:21 Order name: BMP; Complete Time: 16:37 ms3 09/19 15:22 Order name: Blood Culture Adult (2) ms3 09/19 16:52 Order name: Basic Metabolic Panel EDAZ 09/19 16:52 Order name: Basic Metabolic Panel EDMS 09/19 16:52 Order name: Basic Metabolic Panel EDMS 09/19 16:52 Order name: Basic Metabolic Panel EDMS 09/19 16:52 Order name: Basic Metabolic Panel EDMS 09/19 16:52 Order name: Basic Metabolic Panel EDMS 09/19 16:52 Order name: Basic Metabolic Panel EDMS 09/19 16:52 Order name: Basic Metabolic Panel EDMS 09/19 16:52 Order name: CBC with Automated Diff EDMS 09/19 16:52 Order name: CBC with Automated Diff EDMS 09/19 16:52 Order name: CBC with Automated Diff EDMS 09/19 16:52 Order name: CBC with Automated Diff EDMS 09/19 16:52 Order name: CBC with Automated Diff EDMS 09/19 16:52 Order name: CBC with Automated Diff EDMS 09/19 16:52 Order name: CBC with Automated Diff EDMS 09/19 16:52 Order name: CBC with Automated Diff EDMS 09/19 16:50 Order name: Chest Single View XRAY la1 09/19 17:47 Order name: RAD EDMS 09/19 16:48 Order name: CONS Physician Consult; Complete Time: 19:35 EDMS 09/19 16:50 Order name: EKG; Complete Time: 16:50 la1 09/19 16:50 Order name: EKG - Nurse/Tech; Complete Time: 19:35 la1 Administered Medications: 16:47 Drug: Piperacillin-Tazobactam IVPB 3.375 grams IVPB once over 60 mins; (mix in NS 100 kj2 mL) Route: IVPB; Infused Over: 60 mins; Site: left antecubital; 17:30 Follow up: IV Status: Completed infusion kj2 19:30 Follow up: IV Status: Completed infusion kj2 17:18 Drug: morphine IVP or IV 2 mg IVP once over 4 mins Route: IVP; Infused Over: 4 mins; kj2 Site: left antecubital; 19:29 Follow up: Response: No adverse reaction kj2 17:30 Drug: vancoMYCIN IVPB 1 grams IVPB once over 2 hrs Route: IVPB; Infused Over: 2 hrs; kj2 Site: left antecubital; 19:29 Follow up: Response: No adverse reaction kj2 Disposition Summary: 09/19/24 15:37 Hospitalization Ordered Notes: Hospitalization Status: Inpatient Admission ms3 Provider: Jose Madera ms3 Condition: Stable ms3 Problem: new ms3 Symptoms: are unchanged ms3 Bed/Room Type: Standard ms3 Location: Telemetry/MedSurg (Inpatient)(09/19/24 20:34) rv1 Room Assignment: 207(09/19/24 20:34) rv1 Diagnosis - Right lateral foot wound ms3 - Peripheral vascular disease, unspecified ms3 Forms: - Medication Reconciliation Form ms3 - SBAR form ms3 - Leadership Thank You Letter ms3 Signatures: Dispatcher [employer] EDMS Sid Veloz, LINING VAMPER-C LINING VAMPER-Cla1 Tabby Diamond, RN RN Marco Antonio Riley DO DO ms3 Kallie Santizo, RN RN kb3 April Blankenship rv1 Rima Urena, RN RN kj2 Corrections: (The following items were deleted from the chart) 17:29 15:37 Telemetry/MedSurg (Inpatient) ms3 kb3 17:29 15:37 ms3 kb3 20:34 17:29 [facility] ER HOLD kb3 rv1 20:34 17:29 ERHOLD- kb3 rv1
[2024-09-19 16:16] LABS: Absolute Basophils 0.1 K/uL (0-0.5); Absolute Eosinophils 0.1 K/uL (0-0.5); Absolute Lymphocytes (CBC) 1.5 K/uL (0.7-4.9); Absolute Monocytes 0.9 K/uL (0.1-1.3); Absolute Neutrophil 9.3 K/uL (1.8-8.0); Basophils % 0.5 % (0-1.3); Eosinophils % 1.1 % (0-4.4); Hematocrit 37.5 % (39.6-49.0); Hemoglobin 12.5 g/dL (13.6-17.9); Lymphocytes % 12.6 % (15.3-44.8); MCH 30.2 pg (27.0-35.0); MCHC 33.2 g/dL (32.0-36.0); MCV 90.9 fL (80-100); MPV 7.3 fL (7.6-11.3); Monocytes % 7.2 % (3.3-12.3); Neutrophils % 78.6 % (41.7-73.7); Nucleated Red Blood Cells % 0.1 % (0-0); Platelets 400 thou/uL (152-406); RBC Red Blood Cell Count 4.13 M/uL (4.33-5.43); Red Cell Distribution Width 14.4 % (12.1-15.2)
[2024-09-19] MEDS ORDERED: VANCOMYCIN 1 GM/VIAL ONE (16:18)
[2024-09-19] MEDS ORDERED: NA CHLORIDE 0.9% 100 ML ONE (16:19)
[2024-09-19] MEDS ORDERED: NA CHLORIDE 0.9% 250 ML ONE (16:19)
[2024-09-19] MEDS ORDERED: PIPERACIL/TAZO 3.375 GM VIAL IV ONE (16:19)
[2024-09-19 16:23] LABS: Anion Gap 10.2 mEq/L (5.0-15.0); Potassium 4.2 mEq/L (3.5-5.1)
[2024-09-19] MEDS ORDERED: ONDANSETRON 4 MG/2 ML VIAL IV PRN (16:46)
[2024-09-19] MEDS: NA CHLORIDE 0.9% 1,000 ML IV SCH (17:00)
--- NOTE | 2024-09-19 17:08 | P.HP ---
Certification for Inpatient Patient admitted to: Inpatient With expected LOS: >2 Midnights Patient will require the following post-hospital care: None Practitioner: I am a practitioner with admitting privileges, knowledge of patient current condition, hospital course, and medical plan of care. Services: Services provided to patient in accordance with Admission requirements found in Title 42 Section 412.3 of the Code of Federal Regulations Patient History Date of Service: 09/19/24 Reason for admission: Ischemic right foot, foot wound History of Present Illness: 84-year-old male with history of severe PAD, hypertension, hyperlipidemia, fcv-bcxqefu-hdgkdwktz diabetes presents to the emergency department with chief complaint of right foot wound, nonhealing. He was seen by Dr. Bella with vascular surgery today and had a stent placed, unfortunately the stent did not resolve his occlusion and there are no other options for salvaging his lower leg/foot from a vascular standpoint. He has a large wound to the lateral aspect of the right foot which she has been being treated for by Dr. Toscano. Dr. Toscano and Dr. Izquierdo agreed that patient will need to be admitted for likely BKA of the right lower extremity. On top of my exam patient's foot appears ischemic. Patient was evaluated in the emergency department his labs are significant for a white blood cell count of 11.9 hemoglobin 12.5 medic at 37.5 sodium 135 creatinine 1.78 GFR 37 glucose 316. Chest x-ray and EKG ordered for preop assessment. Patient denies any cardiac history, denies chest pain or shortness of breath at any time. Allergies No Known Drug Allergies Allergy (Verified 05/04/24 20:22) Unknown Home Medications: LORazepam [Ativan*] 1 mg PO TIDP 03/06/24 Amlodipine [Norvasc*] 10 mg PO DAILY 30 Days #30 tab 03/08/24 Metoprolol Tartrate [Lopressor*] 25 mg PO BID 6AM 6PM 30 Days #60 tab 03/08/24 Atorvastatin Calcium [Lipitor*] 20 mg PO BEDTIME 05/04/24 Clopidogrel Bisulfate [Plavix] 75 mg PO DAILY 05/04/24 Ibuprofen 1 tab PO DAILY 07/18/24 Sennosides/Docusate Sodium [Docusate Sodium-Sennosides Tab] 50 mg DAILY 07/18/24 Amox/Clavulanate [Augmentin 875-125 Tab*] 875 mg PO BIDWM 7 Days #14 tab 07/22/24 Doxycycline Monohydrate [Mondoxyne Nl] 100 mg PO BID 7 Days #14 07/22/24 Glimepiride 4 mg PO DAILY 14 Days #15 07/22/24 Hydrocodone 10/APAP 325 [[place] 10/325] 1 tab PO TID PRN 5 Days #10 tab 07/22/24 - Past Medical/Surgical History Diabetic: Yes -: Hypertension -: Type 2 diabetes -: Nephrolithiasis -: CKD 3 -: Anxiety -: Gout -: urethral stent placement -: cystoscopy -: hernia repair Psychosocial/ Personal History: Retired, lives at home with his - Family History Mother -: Hypertension Notes: alzheimers Father -: Cancer Notes: colon - Social History Alcohol use: No CD- Drugs: No Caffeine use: Yes Place of Residence: Home Review of Systems 10-point ROS is otherwise unremarkable Musculoskeletal: Leg Pain, Foot Pain Physical Examination - Physical Exam General: Alert, In no apparent distress, Oriented x3 HEENT: Atraumatic, PERRLA, EOMI Neck: Supple, 2+ carotid pulse no bruit Respiratory: Clear to auscultation bilaterally, Normal air movement Cardiovascular: Regular rate/rhythm, Normal S1 S2 Gastrointestinal: Normal bowel sounds, No tenderness Musculoskeletal: No tenderness Integumentary: Cyanosis (Right foot with wound to the lateral right foot) Neurological: Normal speech, Normal strength at 5/5 x4 extr - Studies Laboratory Data (last 24 hrs) 09/19/24 09/19/24 15:50 15:50 WBC 11.90 H Hgb 12.5 L Hct 37.5 L Plt Count 400 Sodium 135 L Potassium 4.2 BUN 39 H Creatinine 1.78 H Glucose 316 H Assessment and Plan - Plan Assessment: Severe PAD with ischemic right lower extremity, with nonhealing right lateral foot wound Diabetes mellitus type 2eje-ygwkdaa-qybftnifa with hyperglycemia Hypertension CKD Plan: Severe PAD with ischemic right lower extremity, with nonhealing right lateral foot wound Seen by vascular surgery today, stent placed but without significant improvement in arterial flow Has had wound to right lateral foot for some time requiring previous amputations Vascular surgery states no further procedures would benefit or salvage leg Likely to need BKA, surgery consulted and case discussed Continue antibiotics/vancomycin, n.p.o. after midnight in anticipation of possible right BKA Patient is Christian, no blood products at any point in time Diabetes mellitus type 8awl-oixhqga-xupjqxnqf with hyperglycemia Every 6 hours Accu-Chek, sliding scale insulin Hypertension Continue home medications when appropriate CKD Similar to baseline, continue gentle IV fluids overnight and monitor chemistry daily DVT PPX:SCD Code status:Full Discharge Plan: Home Plan to discharge in: Greater than 2 days - Advance Directives Does patient have a Living Will: Yes Does patient have a Durable POA for Healthcare: No - Code Status/Comfort Care Code Status Assessed: Yes (Full code) Critical Care: No Time Spent Managing Pts Care (In Minutes): 75
[2024-09-19] MEDS ORDERED: MORPHINE 2 MG/ML SYR ONE (17:11)
[2024-09-19] MEDS ORDERED: D10W 125 ML IV PRN (17:16)
[2024-09-19] MEDS ORDERED: GLUCAGON 1 MG/VIAL IM PRN (17:16)
--- NOTE | 2024-09-19 17:46 | RAD REPORT ---
EXAM: Chest Single View HISTORY: pre op COMPARISON: 05/04/2024 FINDINGS: LUNGS/PLEURA: The lungs are clear. No pleural effusions or pneumothorax. No pulmonary edema. MEDIASTINUM: The mediastinal silhouette is within normal limits. CARDIAC: The cardiac silhouette is within normal limits. UPPER ABDOMEN: No significant abnormality. BONES: No acute abnormality. LINES/TUBES/OTHER: N/A IMPRESSION: No evidence of acute cardiopulmonary disease.
[2024-09-19] MEDS: INSULIN REGULAR (HUMAN) 100 UNIT/ML SQ SCH (18:00)
[2024-09-19] MEDS: METOPROLOL TAR 25 MG TAB PO SCH (18:00)
[2024-09-19] MEDS: VANCOMYCIN 750 MG in NA CHLORIDE 0.9% 150 ML IVPB ONE (18:00)
[2024-09-19] MEDS ORDERED: NA CHLORIDE 0.9% 1,000 ML ONE (20:50)
[2024-09-19] MEDS: ATORVASTATIN 20 MG TAB PO SCH (21:00)
[2024-09-19] MEDS ORDERED: ATORVASTATIN 10 MG TAB ONE (21:10)
[2024-09-19] MEDS ORDERED: METOPROLOL TAR 25 MG TAB ONE (21:16)
[2024-09-19] MEDS: HYDROCODONE/APAP 10/325 TAB PO PRN (23:04)
[2024-09-20 04:50] LABS: Absolute Basophils 0.1 K/uL (0-0.5); Absolute Eosinophils 0.2 K/uL (0-0.5); Absolute Lymphocytes (CBC) 1.3 K/uL (0.7-4.9); Absolute Monocytes 1.1 K/uL (0.1-1.3); Basophils % 0.8 % (0-1.3); Eosinophils % 1.5 % (0-4.4); Hematocrit 31.1 % (39.6-49.0); Hemoglobin 10.8 g/dL (13.6-17.9); Lymphocytes % 11.8 % (15.3-44.8); MCH 31.1 pg (27.0-35.0); MCHC 34.6 g/dL (32.0-36.0); MCV 89.8 fL (80-100); MPV 7.6 fL (7.6-11.3); Monocytes % 10.6 % (3.3-12.3); Neutrophils % 75.3 % (41.7-73.7); Nucleated Red Blood Cells % 0.1 % (0-0); Platelets 304 thou/uL (152-406); RBC Red Blood Cell Count 3.47 M/uL (4.33-5.43); Red Cell Distribution Width 14.6 % (12.1-15.2)
[2024-09-20 05:06] LABS: Anion Gap 7.2 mEq/L (5.0-15.0); Potassium 4.2 mEq/L (3.5-5.1)
[2024-09-20] MEDS: AMLODIPINE 10 MG TAB PO SCH (09:17)
[2024-09-20] MEDS: dexAMETHasone 10 MG/ML VIAL ONE (11:27)
[2024-09-20] MEDS: LIDOCAINE 1% MPF 5 ML VIAL ONE (11:27)
[2024-09-20] MEDS: EPINEPHRINE 1 MG/ML VIAL ONE (11:27)
[2024-09-20] MEDS: BUPIVACAINE 0.25% PF 30 ML VIAL ONE (11:27)
[2024-09-20] MEDS: NA CHLORIDE 0.9% 1,000 ML ONE (11:46)
[2024-09-20] MEDS: propofoL 200 MG/20 ML VIAL IV ONE (12:08)
--- NOTE | 2024-09-20 12:11 | EKG ---
Test Date: 2024-09-19 Test Time: 19:06:46 Other Wood Processing Machine Operator: MARK MEASUREMENT RESULTS: Intervals: Rate: 66 NV: 212 QRSD: 134 QT: 438 QTc: 459 [place]: P: 46 NV: 212 QRS: 47 T: 28 INTERPRETIVE STATEMENTS: Sinus rhythm with 1st degree AV block Right bundle branch block Abnormal ECG Compared to ECG 08/31/2024 14:52:33 Sinus bradycardia no longer present Electronically Signed On 09-20-24 12:10:12 DIRECTOR OF MANUFACTURING by Mariano Mccormack
[2024-09-20] MEDS ORDERED: LIDOCAINE 2% MPF 5 ML VIAL ONE (12:44)
[2024-09-20] MEDS ORDERED: ONDANSETRON 4 MG/2 ML VIAL ONE (12:44)
[2024-09-20] MEDS ORDERED: dexAMETHasone 4 MG/ML VIAL ONE (13:32)
[2024-09-20] MEDS ORDERED: EPHEDRINE SULF 50 MG/ML VIAL ONE (13:34)
[2024-09-20] MEDS: BUPIVACAINE 0.25% PF 10 ML VIAL ONE (14:40)
--- NOTE | 2024-09-20 14:53 | P.OP ---
Preoperative diagnosis: RIGHT Lower Extremity Severe Peripheral Arterial Disease Postoperative diagnosis: RIGHT Lower Extremity Severe Peripheral Arterial Disease Primary procedure: RIGHT Below Knee Amputation Anesthesia: GETA + Regional + Local Estimated blood loss: ~ 10cc Specimen: RIGHT lower extremity Findings: severe atherosclerosis to vessels Complications: None Transferred to: Recovery Room Condition: Good
--- NOTE | 2024-09-20 16:15 | P.PN ---
Date of Service: 09/20/24 Subjective Awake and awaiting amputation to right foot/BKA In good spirits, no new complaints ROS 10 point ROS as noted above, otherwise negative Physical Exam General: Alert and Oriented x3, NAD HEENT: Atraumatic, PERRLA, EOMI Neck: Supple, 2+ carotid pulse no bruit Respiratory: Clear BBS, Nonlabored breathing, on RA Cardiovascular: RRR, Normal S1 S2 Gastrointestinal: Normal bowel sounds, No tenderness Musculoskeletal: No tenderness Integumentary: Cyanosis (Right foot with wound to the lateral right foot) Neurological: Normal speech, Normal strength at 5/5 x4 extr Vitals Reviewed Assessment: Severe PAD with ischemic right lower extremity, with nonhealing right lateral foot wound Diabetes mellitus type 7bau-jruvsgl-lqyjwuuza with hyperglycemia Hypertension CKD Plan: Severe PAD with ischemic right lower extremity, with nonhealing right lateral foot wound Seen by vascular surgery, stent placed but without significant improvement in arterial flow Has had wound to right lateral foot for some time requiring previous amputations Vascular surgery states no further procedures would benefit or salvage leg Dr. Toscano, JAVON today 09/20/24 surgery Continue antibiotics/vancomycin Patient is Buddhism, no blood products at any point in time Diabetes mellitus type 1eah-sfkhdkf-heoeiuqea with hyperglycemia Every 6 hours Accu-Chek, sliding scale insulin Hypertension Continue home medications when appropriate CKD Similar to baseline, continue gentle IV fluids overnight and monitor chemistry daily DVT PPX:SCD Code status:Full Discharge Plan: Home Plan to discharge in: Greater than 2 days
[2024-09-20] MEDS: INSULIN REGULAR (HUMAN) 100 UNIT/ML SQ SCH (18:13)
[2024-09-20] MEDS: LORAZEPAM 1 MG TABLET PO ONE (21:29)
--- NOTE | 2024-09-21 01:54 | OP ---
Date of Procedure: 09/20/2024 Surgeon: Thomas Toscano MD, Preoperative Diagnosis: Right lower extremity severe peripheral arterial disease and chronic wounds of right lower extremity. Postoperative Diagnosis: Right lower extremity severe peripheral arterial disease and chronic wounds of right lower extremity. Procedure Performed: Right macjn-euw-chbv amputation. Anesthesia: General endotracheal plus regional block plus local anesthesia. Estimated Blood Loss: Less than 10 mL. Specimen: Right lower extremity. Findings: Severe atherosclerosis to vessels. Complications: None. Disposition: The patient was transferred to the recovery room in good condition. Procedure In Detail: After informed consent was obtained, the patient was brought to the operating r oom, prepped and draped in the usual sterile fashion after adequate anesthesia was achieved. The lakeisha t was wrapped separately and I performed an Esmarch exsanguination of the right lower extremity. Ult imately, the tourniquet was turned up to 250 mmHg at this point to exsanguinate the lower extremity. At this point, the leg was marked several cm below the tibial plateau and a 2/3rd to 1/3rd type orie ntation with a posterior flap was demarcated at this point. At this point, I went down through subcu taneous tissues, starting with the anterior approach circumferentially around following the premarked area as described with a 15 blade down to subcutaneous tissues. As I encountered the saphenous vein s, these were ligated using the LigaSure device. I then ultimately dissected down through the anteri or compartment using electrocautery to the muscular planes entering through the anterior compartment on the medial and lateral aspects and in between the interosseous membrane to identify the vascular s tructures at this point. I dissected the planes laterally and posteriorly based on a gastrocnemius f lap. I dissected down to isolate the tibial, sural, and deep peroneal nerves individually. These we re individually ligated using 2-0 silk sutures in a stick-tie fashion for the arterial supply and the venous supply was stick-tied with a 2-0 Vicryl suture in the distal aspect, so these were then ligat ed using LigaSure device as well with good hemostasis. I additionally pulled the tibial nerve, sural nerve, and deep peroneal nerves down into the field, injected them with 0.25% Marcaine and then tied these up individually with 2-0 Vicryl sutures and ligated these structures using sharp Metzenbaum sc issors. At this point, the nerves were allowed to retract back superiorly. At this point, I separat ed the tibia after sweeping back the periosteum using a periosteal elevator from the proximal distal aspect of the cut dissection. I then used the hand-powered saw to saw through the tibia at first, th en I cleansed the area back and went ultimately to assess the fibula and I found an appropriate posit ion approximately 1.5 cm above the cut of the tibia, swept back the fibular tissue with the same jermaine osteal elevator, ultimately ligated this with the same said bone saw. At this point, I used a Ja knife to complete the dissection by removing the posterior muscular planes. I then took down the to urniquet. The total tourniquet time for the entire case was 35 minutes cumulative. I ultimately had no hemostatic maneuvers required at this point, other than simple small muscular bleeding, which was easily controlled with either ligature or electrocautery. I then the gastrocnemius tissue plane between the deeper compartments of the soleus and ligated the remainder of the structures usin g a combination of electrocautery as well as LigaSure device. The specimen was then passed off after being ligated completely. I irrigated the area copiously. I beveled the bones with a rasp at this point, circumferentially to smooth the edges out bevelling both the tibia and fibula at this point, t he area was copiously irrigated, cleansed once again. No additional hemostatic measures required. I then brought the gastrocnemius flap over the top and without tension, was able to secure this circum ferentially around using 2-0 Vicryl sutures and the area was cleansed once again and in a tension-isaias e manner with good healthy vascularized pedicle observed. I used interrupted kelly to complete the skin closure at this point. The extremity was then wrapped with a sterile dressing and a knee immob ilizer was placed after the sterile dressing and compression dressings were applied with Aldo bandage and the patient tolerated the procedure without incident or complication, transferred to PACU in good condition. All counts were c orrect at the end of the case. TK/MODL Voice ID: [id number] Report ID: [id number]
[2024-09-21] MEDS: MORPHINE 2 MG/ML SYR IV PRN (03:17)
[2024-09-21 03:22] VITALS: BMI 19.3
[2024-09-21] MEDS ORDERED: VANCOMYCIN 1.25 GM in NA CHLORIDE 0.9% 250 ML IVPB SCH (04:00)
[2024-09-21 05:04] LABS: Absolute Lymphocytes (CBC) 0.4 K/uL (0.7-4.9); Absolute Monocytes 0.3 K/uL (0.1-1.3); Absolute Neutrophil 13.9 K/uL (1.8-8.0); Basophils % 0.1 % (0-1.3); Hematocrit 30.8 % (39.6-49.0); Hemoglobin 10.3 g/dL (13.6-17.9); Lymphocytes % 2.5 % (15.3-44.8); MCH 30.6 pg (27.0-35.0); MCHC 33.5 g/dL (32.0-36.0); MCV 91.4 fL (80-100); MPV 7.5 fL (7.6-11.3); Monocytes % 2.4 % (3.3-12.3); Platelets 321 thou/uL (152-406); RBC Red Blood Cell Count 3.37 M/uL (4.33-5.43); Red Cell Distribution Width 14.6 % (12.1-15.2)
[2024-09-21 05:13] LABS: Anion Gap 9.6 mEq/L (5.0-15.0); Potassium 4.6 mEq/L (3.5-5.1)
[2024-09-21] MEDS: VANCOMYCIN 1.25 GM in NA CHLORIDE 0.9% 250 ML IVPB SCH (05:58)
[2024-09-21 08:18] LABS: Band Neutrophils 1 % (0-1); Blood Morphology Comment NOT SEEN (NOT SEEN); Differential Total Cells Count 100; Lymphocytes 5 % (15-42); Monocytes 3 % (0-10); Platelet Estimate ADEQ; Segmented Neutrophils 91 % (40-80)
[2024-09-21] MEDS ORDERED: AMLODIPINE 10 MG TAB PO SCH (09:00)
[2024-09-21] MEDS: CLOPIDOGREL 75 MG TABLET PO SCH (09:20)
[2024-09-21] MEDS: DOCUSATE NA/SENNA CONC 1 TAB PO SCH (09:20)
[2024-09-21] MEDS: LORAZEPAM 1 MG TABLET PO PRN (09:21)
--- NOTE | 2024-09-21 17:48 | P.PN ---
Date of Service: 09/21/24 History: Patient has underwent right leg revascularization. he had angioplasty of the popliteal, anterior tibial and posterior tibial arteries.Because of worsening foot wound as well as cyanosis, he was admitted to the hospital and has received a right below-knee amputation. Today, he is quite confused. He did know that he was still in the hospital. He denies any significant pain. Denies any fevers or chills. Temp Pulse Resp BP Pulse Ox 98.6 F 69 98 H 122/57 L 98 09/21/24 16:00 09/21/24 16:00 09/21/24 16:00 09/21/24 16:00 09/21/24 16:00 Laboratory Last Values WBC 11.90 thou/uL (4.3-10.9) H 09/19/24 15:50 RBC 4.13 M/uL (4.33-5.43) L 09/19/24 15:50 Hgb 12.5 g/dL (13.6-17.9) L 09/19/24 15:50 Hct 37.5 % (39.6-49.0) L 09/19/24 15:50 MCV 90.9 fL (80-100) 09/19/24 15:50 MCH 30.2 pg (27.0-35.0) 09/19/24 15:50 MCHC 33.2 g/dL (32.0-36.0) 09/19/24 15:50 RDW 14.4 % (12.1-15.2) 09/19/24 15:50 Plt Count 400 thou/uL (152-406) 09/19/24 15:50 MPV 7.3 fL (7.6-11.3) L 09/19/24 15:50 Neutrophils % 78.6 % (41.7-73.7) H 09/19/24 15:50 Lymphocytes % 12.6 % (15.3-44.8) L 09/19/24 15:50 Monocytes % 7.2 % (3.3-12.3) 09/19/24 15:50 Eosinophils % 1.1 % (0-4.4) 09/19/24 15:50 Basophils % 0.5 % (0-1.3) 09/19/24 15:50 Absolute Neutrophils 9.3 K/uL (1.8-8.0) H 09/19/24 15:50 Absolute Lymphocytes 1.5 K/uL (0.7-4.9) 09/19/24 15:50 Absolute Monocytes 0.9 K/uL (0.1-1.3) 09/19/24 15:50 Absolute Eosinophils 0.1 K/uL (0-0.5) 09/19/24 15:50 Absolute Basophils 0.1 K/uL (0-0.5) 09/19/24 15:50 Sodium 135 mEq/L (136-145) L 09/19/24 15:50 Potassium 4.2 mEq/L (3.5-5.1) 09/19/24 15:50 Chloride 104 mEq/L (98-107) 09/19/24 15:50 Carbon Dioxide 25 mEq/L (21-32) 09/19/24 15:50 Anion Gap 10.2 mEq/L (5.0-15.0) 09/19/24 15:50 BUN 39 mg/dL (7-18) H 09/19/24 15:50 Creatinine 1.78 mg/dL (0.70-1.30) H 09/19/24 15:50 Est GFR (CKD-EPI) 37 ml/min (=/>90) L 09/19/24 15:50 Glucose 316 mg/dL (74-106) H 09/19/24 15:50 Calcium 9.3 mg/dL (8.5-10.1) 09/19/24 15:50 Current Medications Hydrocodone Bitart/Acetaminophen (Hydrocodone/Apap 10/325 Tab) 1 tab PO Q6H PRN PRN Reason: Pain scale 5-7 (Moderate) Last Admin: 09/21/24 09:21 Dose: 1 tab Amlodipine Besylate (Amlodipine 10 Mg Tab) 10 mg PO DAILY [facility] Last Admin: 09/21/24 09:20 Dose: 10 mg Atorvastatin Calcium (Atorvastatin 20 Mg Tab) 20 mg PO BEDTIME OLAM[facility] Last Admin: 09/20/24 21:29 Dose: 20 mg Clopidogrel Bisulfate (Clopidogrel 75 Mg Tablet) 75 mg PO DAILY [facility] Last Admin: 09/21/24 09:20 Dose: 75 mg Glucagon (Glucagon 1 Mg/Vial) 1 mg IM 1X PRN PRN Reason: HYPOGLYCEMIA Sodium Chloride (Ns 1000 Ml Ivbag) 1,000 mls @ 75 mls/hr IV .[id number] [facility] Last Admin: 09/21/24 09:18 Dose: 1,000 mls Dextrose (Dextrose 10% Water Iv Soln.) 125 mls @ 0 mls/hr IV PRN PRN; Protocol PRN Reason: HYPOGLYCEMIA Vancomycin HCl 1.25 gm/ Sodium (Chloride) 250 mls @ 166.667 mls/hr IVPB Q24H [facility]; Protocol Insulin Human Regular (Insulin Regular (Human) 100 Unit/Ml) 0 unit SQ ACHS [facility]; Protocol Last Admin: 09/21/24 16:21 Dose: 8 unit Lorazepam (Lorazepam 1 Mg Tablet) 1 mg PO TIDP PRN PRN Reason: ANXIETY Last Admin: 09/21/24 13:58 Dose: 1 mg Metoprolol Tartrate (Metoprolol Tar 25 Mg Tab) 25 mg PO BID 6AM 6PM [facility] Last Admin: 09/21/24 17:28 Dose: 25 mg Morphine Sulfate (Morphine 2 Mg/Ml Syr) 2 mg IV Q4H PRN PRN Reason: Pain scale 8-10 (Severe) Last Admin: 09/21/24 03:17 Dose: 2 mg Ondansetron HCl (Ondansetron 4 Mg/2 Ml Vial) 4 mg IV Q6HP PRN PRN Reason: NAUSEA / VOMITING Senna/Docusate Sodium (Docusate Na/Senna Conc 1 Tab) 1 tab PO DAILY [facility] Last Admin: 09/21/24 09:20 Dose: 1 tab ROS: 10 point ROS unremarkable EXAM: GEN: NAD, cooperative with exam, well groomed, well developed, well nourished HEENT: Head normocephalic, atraumatic, head normocephalic, head atraumatic, EOMI NECK: full range of motion, trachea midline, no increased JVP visible RESP: no respiratory distress, no use of accessory muscles of respiration CV: regular rate and rhythm , pulse rate regular GI: NL abdominal inspection, soft, nontender to palpation, no rebound/guarding/rigidity DERM: (-)diaphoresis, (-)periorbital xanthelasma, (-)xanthomas, (-)cyanosis PSYCH: alert and oriented to time, place, and person, normal mood, normal affect Right leg: femoral pulse palpable. No tenderness to the thigh. Status post right below knee amputation, amputation margin dressed Assessment/Plan: 1. Patient with critical limb threatening ischemia, status post right below- knee amputation 2. Recommend outpatient follow-up in my office 2-4 weeks after discharge to ensure surveillance of the popliteal artery stenosis to help with wound/margin healing
[2024-09-21] MEDS ORDERED: METOPROLOL TAR 25 MG TAB PO SCH (18:00)
[2024-09-21] MEDS: QUETIAPINE 25 MG TAB PO SCH (20:20)
[2024-09-21] MEDS ORDERED: ATORVASTATIN 20 MG TAB PO SCH (21:00)
--- NOTE | 2024-09-21 21:41 | P.PN ---
Date of Service: 09/21/24 Subjective Feeling well, many questions about physical therapy Some confusion at night no new complaints ROS 10 point ROS as noted above, otherwise negative Physical Exam General: AAO x2, NAD, afebrile HEENT: Atraumatic, PERRLA, EOMI Neck: Supple, 2+ carotid pulse no bruit Respiratory: Clear BBS, Nonlabored breathing, on RA Cardiovascular: Regular rate and rhythm, Normal S1 S2 Gastrointestinal: Normal bowel sounds, No tenderness, nontender Musculoskeletal: No tenderness Integumentary: Cyanosis (Right foot with wound to the lateral right foot) Neurological: Normal speech, Normal strength at 5/5 x4 extr Vitals Reviewed Assessment: Severe PAD with ischemic right lower extremity, with nonhealing right lateral foot wound Diabetes mellitus type 2jwz-kvboyvs-cndvodwvb with hyperglycemia Hypertension CKD Plan: Severe PAD with ischemic right lower extremity, with nonhealing right lateral foot wound Seen by vascular surgery, stent placed but without significant improvement in arterial flow Has had wound to right lateral foot for some time requiring previous amputations Vascular surgery states no further procedures would benefit or salvage leg Dr. Toscano, KRISSYA today 09/20/24 surgery Continue antibiotics/vancomycin consult for inpatient rehab Patient is Sabianism, no blood products at any point in time Diabetes mellitus type 4ukz-atmwrvj-hgdfxakck with hyperglycemia Every 6 hours Accu-Chek, sliding scale insulin Hypertension Continue home medications when appropriate CKD Similar to baseline, continue gentle IV fluids overnight and monitor chemistry daily DVT PPX:SCD Code status:Full Discharge Plan: Home Plan to discharge in: Greater than 2 days
[2024-09-22] MEDS: VANCOMYCIN 1.25 GM in NA CHLORIDE 0.9% 250 ML IVPB SCH (05:19)
[2024-09-22 05:22] LABS: Absolute Basophils 0.1 K/uL (0-0.5); Absolute Lymphocytes (CBC) 1.3 K/uL (0.7-4.9); Absolute Monocytes 1.1 K/uL (0.1-1.3); Absolute Neutrophil 9.1 K/uL (1.8-8.0); Basophils % 0.6 % (0-1.3); Hematocrit 27.3 % (39.6-49.0); MCH 30.3 pg (27.0-35.0); MCV 91.6 fL (80-100); MPV 7.5 fL (7.6-11.3); Monocytes % 9.2 % (3.3-12.3); Neutrophils % 79.2 % (41.7-73.7); Platelets 282 thou/uL (152-406); RBC Red Blood Cell Count 2.98 M/uL (4.33-5.43); Red Cell Distribution Width 14.5 % (12.1-15.2)
[2024-09-22 05:34] LABS: Anion Gap 8.2 mEq/L (5.0-15.0); Potassium 4.2 mEq/L (3.5-5.1)
--- NOTE | 2024-09-22 13:47 | P.PN ---
Date of Service: 09/22/24 Subjective Awake and talkative this morning c/o pain to right leg will continue to work with physical therapy Elevated serum glucose, starting semglee tonight ROS 10 point ROS as noted above, otherwise negative Physical Exam General: awake, alert, and oriented x2, NAD, afebrile HEENT: Atraumatic, PERRLA, EOMI Neck: Supple, 2+ carotid pulse no bruit Respiratory: Clear BBS, symmetrical chest wall movement, on RA Cardiovascular: RRR, Normal S1 S2 Gastrointestinal: Normal bowel sounds, No tenderness, nontender Musculoskeletal: No tenderness Integumentary: right BKA incision, healing well Neurological: Normal speech, Normal strength at 5/5 x4 extr Vitals Reviewed Assessment: Severe PAD with ischemic right lower extremity, with nonhealing right lateral foot wound Diabetes mellitus type 1frt-bmyeqyh-ekipyiupm with hyperglycemia Hypertension CKD Plan: Severe PAD with ischemic right lower extremity, with nonhealing right lateral foot wound Seen by vascular surgery, stent placed but without significant improvement in arterial flow Has had wound to right lateral foot for some time requiring previous amputations Vascular surgery states no further procedures would benefit or salvage leg JAVON Rao today 09/20/24 surgery Continue antibiotics/vancomycin consult for inpatient rehab Working with physical therapy Patient is Voodoo, no blood products at any point in time Diabetes mellitus type 9joz-yvhqyvq-sejokfako with hyperglycemia Every 6 hours Accu-Chek, sliding scale insulin Semglee 7 unit at bedtime Hypertension Continue home medications when appropriate CKD Similar to baseline, continue gentle IV fluids overnight and monitor chemistry daily DVT PPX:SCD Code status:Full Discharge Plan: Home Plan to discharge in: Greater than 2 days
[2024-09-22] MEDS: GLUCERNA SHAKE 237 ML CAN PO SCH (21:00)
[2024-09-22] MEDS: INSULIN GLARGINE 100 UNIT/ML SQ SCH (21:16)
[2024-09-23 04:48] LABS: Absolute Eosinophils 0.1 K/uL (0-0.5); Absolute Lymphocytes (CBC) 1.6 K/uL (0.7-4.9); Absolute Monocytes 0.9 K/uL (0.1-1.3); Absolute Neutrophil 5.6 K/uL (1.8-8.0); Basophils % 0.5 % (0-1.3); Eosinophils % 0.9 % (0-4.4); Hematocrit 27.9 % (39.6-49.0); Hemoglobin 9.5 g/dL (13.6-17.9); Lymphocytes % 19.2 % (15.3-44.8); MCH 30.9 pg (27.0-35.0); MCHC 34.1 g/dL (32.0-36.0); MCV 90.5 fL (80-100); MPV 7.5 fL (7.6-11.3); Monocytes % 10.9 % (3.3-12.3); Neutrophils % 68.5 % (41.7-73.7); Platelets 257 thou/uL (152-406); RBC Red Blood Cell Count 3.08 M/uL (4.33-5.43); Red Cell Distribution Width 14.8 % (12.1-15.2)
[2024-09-23 05:01] LABS: Anion Gap 8.5 mEq/L (5.0-15.0); Potassium 3.5 mEq/L (3.5-5.1)
--- NOTE | 2024-09-23 07:01 | P.PN ---
Date of Service: 09/23/24 Subjective awake still with pain to right amputation site Pseudomonas found in amputation specimen, starting Merrem Awaiting inpatient rehab ROS 10 point ROS as noted above, otherwise negative Physical Exam General: AAO x2, NAD, Depressed HEENT: Atraumatic, PERRLA, EOMI Neck: Supple, 2+ carotid pulse no bruit Respiratory: Clear BBS, symmetrical chest wall movement, on RA Cardiovascular: Regular rate and rhythm, Normal S1 S2 Gastrointestinal: Normal bowel sounds, No tenderness on palpation Musculoskeletal: Right BKA pain Integumentary: right BKA incision approximated Neurological: Normal speech, confused Vitals Reviewed Assessment: Severe PAD with ischemic right lower extremity, with nonhealing right lateral foot wound Diabetes mellitus type 3jhg-rdxfifk-nhikwkmvt with hyperglycemia Hypertension CKD Plan: Severe PAD with ischemic right lower extremity, with nonhealing right lateral foot wound Pseudomonas Aeruginosa Seen by vascular surgery, stent placed but without significant improvement in arterial flow Has had wound to right lateral foot for some time requiring previous amputations Vascular surgery states no further procedures would benefit or salvage leg Dr. Toscano, BKA today 09/20/24 surgery Continue antibiotics/vancomycin consult for inpatient rehab Working with physical therapy Merrem started Patient is Quaker, no blood products at any point in time Diabetes mellitus type 9arp-xqfukul-cjeowlzfa with hyperglycemia Every 6 hours Accu-Chek, sliding scale insulin Semglee 7 unit at bedtime- Glucose improved A1C 9.6 Hypertension Continue home medications when appropriate CKD Similar to baseline, continue gentle IV fluids overnight and monitor chemistry daily DVT PPX:SCD Code status:Full Discharge Plan: Home Plan to discharge in: Greater than 2 days
[2024-09-23] MEDS: MORPHINE 2 MG/ML SYR IV ONE (08:56)
[2024-09-23] MEDS: Meropenem 1,000 MG in NA CHLORIDE 0.9% 100 ML IV SCH (13:37)
[2024-09-23] MEDS: QUETIAPINE 25 MG TAB PO SCH (13:38)
[2024-09-24] MEDS: MORPHINE 2 MG/ML SYR IV PRN (04:38)
[2024-09-24 05:29] LABS: Anion Gap 11.2 mEq/L (5.0-15.0); Potassium 3.2 mEq/L (3.5-5.1)
[2024-09-24 05:47] LABS: Absolute Eosinophils 0.1 K/uL (0-0.5); Absolute Lymphocytes (CBC) 1.2 K/uL (0.7-4.9); Absolute Monocytes 1.4 K/uL (0.1-1.3); Absolute Neutrophil 7.6 K/uL (1.8-8.0); Basophils % 0.1 % (0-1.3); Eosinophils % 0.8 % (0-4.4); Hematocrit 31.5 % (39.6-49.0); Hemoglobin 10.7 g/dL (13.6-17.9); Lymphocytes % 12.1 % (15.3-44.8); MCH 30.4 pg (27.0-35.0); MCV 89.6 fL (80-100); MPV 7.6 fL (7.6-11.3); Monocytes % 13.3 % (3.3-12.3); Neutrophils % 73.7 % (41.7-73.7); Nucleated Red Blood Cells % 0.2 % (0-0); Platelets 260 thou/uL (152-406); RBC Red Blood Cell Count 3.52 M/uL (4.33-5.43); Red Cell Distribution Width 14.5 % (12.1-15.2)
--- NOTE | 2024-09-24 06:43 | P.PN ---
Date of Service: 09/24/24 Subjective Calm and cooperative at first visit but quickly changes to depressive and tearful Ativan TID home medication being used Awaiting inpatient rehab ROS 10 point ROS as noted above, otherwise negative Physical Exam General: AAO x2, NAD, emotional HEENT: Atraumatic, PERRLA, EOMI Neck: Supple, 2+ carotid pulse no bruit Respiratory: Clear BBS, nonlabored breathing, on RA Cardiovascular: RRR, Normal S1 S2 Gastrointestinal: Normal bowel sounds, No tenderness on palpation Musculoskeletal: Right BKA pain Integumentary: right BKA incision approximated Neurological: Normal speech, confused, emotional Vitals Reviewed Assessment: Severe PAD with ischemic right lower extremity, with nonhealing right lateral foot wound Diabetes mellitus type 5dhq-dkcfmhp-lonfjaxiw with hyperglycemia Hypertension CKD Plan: Severe PAD with ischemic right lower extremity, with nonhealing right lateral foot wound Pseudomonas Aeruginosa Seen by vascular surgery, stent placed but without significant improvement in arterial flow Has had wound to right lateral foot for some time requiring previous amputations Vascular surgery states no further procedures would benefit or salvage leg Dr. Toscano, [facility] today 09/20/24 surgery Continue antibiotic-Merrem changed to cefepime with silvadene applied to the right incision for double coverage consult for inpatient rehab Working with physical therapy Patient is Hinduism, no blood products at any point in time Diabetes mellitus type 2fzm-wnwwvnx-xadvmrazs with hyperglycemia Every 6 hours Accu-Chek, sliding scale insulin Semglee 7 unit at bedtime- Glucose improved A1C 9.6 Hypertension Continue home medications when appropriate CKD Similar to baseline, continue gentle IV fluids overnight and monitor chemistry daily DVT PPX:SCD Code status:Full Discharge Plan: inpatient rehab Plan to discharge in: Greater than 2 days
[2024-09-24] MEDS: POTASSIUM 25 MEQ EFFERV TAB PO SCH (09:56)
[2024-09-24] MEDS ORDERED: SILVER SULFADIAZINE 1% 25 GM TOP ONE (20:03)
[2024-09-24] MEDS: SILVER SULFADIAZINE 1% 50 GM TOP SCH (21:00)
[2024-09-24] MEDS: CEFEPIME 1 GM in NA CHLORIDE 0.9% 100 ML IV SCH (21:53)
[2024-09-25 05:58] LABS: Absolute Eosinophils 0.1 K/uL (0-0.5); Absolute Lymphocytes (CBC) 1.4 K/uL (0.7-4.9); Absolute Neutrophil 5.7 K/uL (1.8-8.0); Basophils % 0.4 % (0-1.3); Eosinophils % 1.5 % (0-4.4); Hematocrit 27.2 % (39.6-49.0); Hemoglobin 9.3 g/dL (13.6-17.9); Lymphocytes % 17.2 % (15.3-44.8); MCH 31.1 pg (27.0-35.0); MCHC 34.2 g/dL (32.0-36.0); MCV 90.9 fL (80-100); MPV 7.6 fL (7.6-11.3); Monocytes % 12.2 % (3.3-12.3); Neutrophils % 68.7 % (41.7-73.7); Platelets 223 thou/uL (152-406); RBC Red Blood Cell Count 2.99 M/uL (4.33-5.43); Red Cell Distribution Width 14.8 % (12.1-15.2)
[2024-09-25 06:05] LABS: Anion Gap 7.7 mEq/L (5.0-15.0); Magnesium 2.3 mg/dL (1.6-2.4); Phosphorus 2.6 mg/dL (2.5-4.9); Potassium 3.7 mEq/L (3.5-5.1)
--- NOTE | 2024-09-25 06:26 | P.PN ---
Date of Service: 09/25/24 Subjective Sleeping comfortably no new complaints Awaiting inpatient rehab Continue to control pain and encourage physical therapy Silvadene to right incision area for Pseudomonas ROS 10 point ROS as noted above, otherwise negative Physical Exam General: Sleeping, easily awakens, oriented x2, NAD HEENT: Atraumatic, PERRLA, EOMI Neck: Supple, 2+ carotid pulse no bruit Respiratory: Clear BBS, nonlabored breathing, on RA Cardiovascular: Regular rate and rhythm, Normal S1 S2 Gastrointestinal: Normal bowel sounds, No tenderness on palpation Musculoskeletal: Right BKA pain Integumentary: right BKA incision approximated, dressing CDI Neurological: Normal speech, confused, emotional Vitals Reviewed Assessment: Severe PAD with ischemic right lower extremity, with nonhealing right lateral foot wound Diabetes mellitus type 7fgc-loufzto-mnaismayw with hyperglycemia Hypertension CKD Plan: Severe PAD with ischemic right lower extremity, with nonhealing right lateral foot wound Pseudomonas Aeruginosa Seen by vascular surgery, stent placed but without significant improvement in arterial flow Dr. Toscano, [facility] today 09/20/24 surgery Continue antibiotic- cefepime with silvadene applied to the right incision for double coverage consult for inpatient rehab, pending Continue with physical therapy Patient is Tenriism, no blood products at any point in time Diabetes mellitus type 5uwq-njqfbdj-heawmatjl with hyperglycemia Every 6 hours Accu-Chek, sliding scale insulin Semglee 7 unit at bedtime- Glucose improving A1C 9.6 Hypertension Continue home medications when appropriate CKD Similar to baseline, continue gentle IV fluids overnight and monitor chemistry daily DVT PPX:SCD Code status:Full Discharge Plan: inpatient rehab Plan to discharge in: Greater than 2 days
[2024-09-26 05:59] LABS: Absolute Basophils 0.1 K/uL (0-0.5); Absolute Eosinophils 0.3 K/uL (0-0.5); Absolute Lymphocytes (CBC) 1.2 K/uL (0.7-4.9); Absolute Neutrophil 5.6 K/uL (1.8-8.0); Basophils % 0.6 % (0-1.3); Eosinophils % 3.1 % (0-4.4); Hematocrit 28.1 % (39.6-49.0); Hemoglobin 9.5 g/dL (13.6-17.9); Lymphocytes % 14.7 % (15.3-44.8); MCHC 33.9 g/dL (32.0-36.0); MCV 91.4 fL (80-100); MPV 7.2 fL (7.6-11.3); Monocytes % 12.4 % (3.3-12.3); Neutrophils % 69.2 % (41.7-73.7); Nucleated Red Blood Cells % 0.1 % (0-0); Platelets 251 thou/uL (152-406); RBC Red Blood Cell Count 3.07 M/uL (4.33-5.43); Red Cell Distribution Width 14.7 % (12.1-15.2)
[2024-09-26 06:09] LABS: Anion Gap 8.8 mEq/L (5.0-15.0); Magnesium 2.6 mg/dL (1.6-2.4); Phosphorus 2.9 mg/dL (2.5-4.9); Potassium 3.8 mEq/L (3.5-5.1)
[2024-09-26] MEDS: POTASSIUM CL SA 10 MEQ TAB PO ONE (08:44)
[2024-09-26] MEDS ORDERED: CEFEPIME 2 GM in NA CHLORIDE 0.9% 100 ML IV SCH ×2 (10:00→21:00)
[2024-09-26] MEDS: CEFEPIME 1 GM in NA CHLORIDE 0.9% 100 ML IV SCH (11:04)
--- NOTE | 2024-09-26 11:50 | P.PN ---
Date of Service: 09/26/24 Subjective Awake and eating breakfast, feeling positive this morning Working with PT Dr. Eisenberg to stop cefepime and add xeroform Awaiting inpatient rehab, appeal ROS 10 point ROS as noted above, otherwise negative Physical Exam General: Awake, oriented x2, NAD HEENT: Atraumatic, PERRLA, EOMI Neck: Supple, 2+ carotid pulse no bruit Respiratory: Clear BBS, normal chest wall movement on RA Cardiovascular: RRR, Normal S1 S2 Gastrointestinal: Normal bowel sounds, soft and No tenderness on palpation Musculoskeletal: Right BKA pain Integumentary: right BKA incision approximated, dressing CDI Neurological: Normal speech, confused, emotional Vitals Reviewed Assessment: Severe PAD with ischemic right lower extremity, with nonhealing right lateral foot wound s/p BKA Pseudomonas Aeruginosa to right amputation Diabetes mellitus type 4iao-pubyusn-mfmwolsiw with hyperglycemia Hypertension CKD Plan: Severe PAD with ischemic right lower extremity, with nonhealing right lateral foot wound s/p BKA Pseudomonas Aeruginosa to right amputation -Seen by vascular surgery, stent placed but without significant improvement in arterial flow -JAVON Rao today 09/20/24 surgery -Stop cefepime, continue silvadene apply to the right incision -inpatient rehab, appeal pending -Continue with physical therapy- recommend aggressive therapy -wound/incision care- Keep leg wrapped and elevated for first 48 hours after surgery then -remove knee immobilizer cleanse incision recover surgical site with Xeroform followed by Kerlix followed by Aldo bandage wrapped snugly then reapply knee immobilizer. Should be changed daily Patient is Restoration, no blood products at any point in time Diabetes mellitus type 5sob-ucvikgd-utbxtbysr with hyperglycemia Every 6 hours Accu-Chek, sliding scale insulin Continue Semglee 7 unit at bedtime- Glucose improving A1C 9.6 Hypertension Continue home medications when appropriate CKD Similar to baseline, continue gentle IV fluids overnight and monitor chemistry daily DVT PPX: SCD Code status:Full Discharge Plan: inpatient rehab, appeal pending Plan to discharge in: Greater than 2 days
[2024-09-26] MEDS: NA CHLORIDE 0.9% 1,000 ML IV SCH (14:45)
--- NOTE | 2024-09-26 16:33 | CON ---
History Of Present Illness: This is an 84-year-old male, I was consulted for antibiotic management. Patient has a Pseudomonas aeruginosa to his right foot wound after which he had to go through BKA do ne by surgical team on September 21. The patient was being treated with cefepime and Silvadene for th e foot wound. He has significant past medical history of peripheral arterial disease, hypertension, hyperlipidemia, non-insulin dependent diabetes mellitus, came into the hospital with right foot wound . Denies any problems on antibiotics. Denies any fever, nausea, vomiting, chest pain, abdominal emerita n, constipation, or diarrhea. Past Medical History: Hypertension, diabetes mellitus, CKD 3, nephrolithiasis, anxiety, gout, urethr al stent, cystoscopy, hernia repair. Social History: Nonsmoker, nondrinker. Family History: Noncontributory except colon cancer and hypertension and Alzheimer's. Medications: Cefepime. See mars for other medications. Allergies: NO KNOWN DRUG ALLERGIES. Review of Systems: A 10-point review was performed. Physical Examination: General: This is an 84-year-old male, lying in bed, not in any acute distress. Vital Signs: Temperature 97, pulse 62, respirations 12, blood pressure 146/65. HEENT: Unremarkable. Neck: Supple. Lungs: Clear to auscultation. Heart: S1, S2. Regular. Abdomen: Soft, nontender. Bowel sounds present. Extremity: Right BKA wound noted with kelly in place. No signs of active infection. Laboratory Data: Shows WBC 8.1, hemoglobin 9.5, platelets 251. Chemistry shows BUN of 29, creatinin e 1.3, sugar is 229. Micro data shows right foot wound is Pseudomonas aeruginosa. Blood cultures ar e negative. Assessment And Plan: This is an 84-year-old male with right foot ulceration, diabetes mellitus secon viktor to diabetic neuropathy and peripheral arterial disease, status post below knee amputation. The patient is doing well. We will recommend to apply Xeroform to the BKA site. Otherwise, stop antibio tic and Silvadene. Monitor blood sugars. Monitor nutritional support. Continue current treatment. Continue medication. We will follow the patient as needed. No further recommendations at this time . NF/MODL Voice ID: [id number] Report ID: [id number]
[2024-09-27 08:03] LABS: Anion Gap 8.7 mEq/L (5.0-15.0); Magnesium 2.4 mg/dL (1.6-2.4); Phosphorus 3.3 mg/dL (2.5-4.9); Potassium 3.7 mEq/L (3.5-5.1)
--- NOTE | 2024-09-27 11:35 | P.PN ---
Date of Service: 09/27/24 Subjective Awake and eating breakfast, feeling positive this morning Working with PT Dr. Eisenberg to stop cefepime and add xeroform Awaiting inpatient rehab, appeal No acute events overnight ROS 10 point ROS as noted above, otherwise negative Physical Exam General: Awake, oriented x2, NAD HEENT: Atraumatic, PERRLA, EOMI Neck: Supple, 2+ carotid pulse no bruit Respiratory: Clear BBS, normal chest wall movement on RA Cardiovascular: RRR, Normal S1 S2 Gastrointestinal: Normal bowel sounds, soft and No tenderness on palpation Musculoskeletal: Right BKA pain Integumentary: right BKA incision approximated, dressing CDI Neurological: Normal speech, confused, emotional Vitals Reviewed Assessment: Severe PAD with ischemic right lower extremity, with nonhealing right lateral foot wound s/p BKA Pseudomonas Aeruginosa to right amputation Diabetes mellitus type 1qhj-iwmwbtx-yfxhwjtnm with hyperglycemia Hypertension CKD Plan: Severe PAD with ischemic right lower extremity, with nonhealing right lateral foot wound s/p BKA Pseudomonas Aeruginosa to right amputation -Seen by vascular surgery, stent placed but without significant improvement in arterial flow -Dr. Toscano, [facility] 09/20/24 -Stop cefepime, continue silvadene apply to the right incision -inpatient rehab, appeal pending -Continue with physical therapy- recommend aggressive therapy -wound/incision care- Keep leg wrapped and elevated for first 48 hours after surgery then -remove knee immobilizer cleanse incision recover surgical site with Xeroform followed by Kerlix followed by Aldo bandage wrapped snugly then reapply knee immobilizer. Should be changed daily Patient is Zoroastrianism, no blood products at any point in time Diabetes mellitus type 8qcm-kvebvmc-vtonwconj with hyperglycemia Every 6 hours Accu-Chek, sliding scale insulin Continue Semglee 7 unit at bedtime- Glucose improving A1C 9.6 Hypertension Continue home medications when appropriate CKD Similar to baseline, continue gentle IV fluids overnight and monitor chemistry daily DVT PPX: SCD Code status:Full Discharge Plan: inpatient rehab, appeal pending Plan to discharge in: Greater than 2 days
--- NOTE | 2024-09-27 12:59 | PN ---
Subjective: Patient is lying in bed with the by the bedside, not in any acute distress. Objective: Vital Signs: Temperature 98, pulse 78, respirations 16, blood pressure 126/59. Lungs: Clear to auscultation. Heart: S1, S2. Regular. Abdomen: Soft, nontender. Bowel sounds present. Extremities: No edema. BKA wound noted. Laboratory Data: WBC within normal limits. Kidney function within normal limits. Blood sugar is 10 9. Assessment And Plan: Status post right below-knee amputation for necrotic diabetic foot ulcer, nonhe aling ulcer, anemia of chronic disease, diabetes mellitus, diabetic neuropathy. Continue supportive care and wound care as per surgical team. We will follow patient as needed. NF/MODL Voice ID: [id number] Report ID: [id number]
[2024-09-28 01:36] VITALS: O2SAT 97
[2024-09-28 12:30] VITALS: BP 125/59; TEMP 97.4
--- NOTE | 2024-09-28 15:39 | P.DS ---
Admission Date: 09/19/24 Discharge Date: 09/28/24 Disposition: ROUTINE DISCHARGE Discharge Condition: GOOD Reason for Admission: Ischemic right foot, foot wound Brief History of Present Illness: 84-year-old male with history of severe PAD, hypertension, hyperlipidemia, udn-khopxyv-sudykgtpp diabetes presents to the emergency department with chief complaint of right foot wound, nonhealing. He was seen by Dr. Bella with vascular surgery today and had a stent placed, unfortunately the stent did not resolve his occlusion and there are no other options for salvaging his lower leg/foot from a vascular standpoint. He has a large wound to the lateral aspect of the right foot which she has been being treated for by Dr. Toscano. Dr. Toscano and Dr. Izquierdo agreed that patient will need to be admitted for likely BKA of the right lower extremity. On top of my exam patient's foot appears ischemic. Patient was evaluated in the emergency department his labs are significant for a white blood cell count of 11.9 hemoglobin 12.5 medic at 37.5 sodium 135 creatinine 1.78 GFR 37 glucose 316. Chest x-ray and EKG ordered for preop assessment. Patient denies any cardiac history, denies chest pain or shortness of breath at any time. Hospital Course: Assessment: Severe PAD with ischemic right lower extremity, with nonhealing right lateral foot wound s/p BKA Pseudomonas Aeruginosa to right amputation Diabetes mellitus type 4bgs-yrfogef-xudyqqddq with hyperglycemia Hypertension CKD Patient was admitted to the hospital for right lower extremity ischemia with chronic foot wound. He underwent a right BKA has been doing well postoperatively. He has not been accepted to inpatient rehab for further PT prior to discharge. There as followed below. Continue home medications as previously prescribed Right LE BKA incision/wound care Keep leg wrapped and elevated for first 48 hours after surgery then remove knee immobilizer cleanse incision recover surgical site with Xeroform followed by Kerlix followed by Aldo bandage wrapped snugly then reapply knee immobilizer. Should be changed daily Vital Signs/Physical Exam: Temp Pulse Resp BP Pulse Ox 97.4 F 54 18 125/59 L 98 09/28/24 12:00 09/28/24 12:00 09/28/24 12:00 09/28/24 12:00 09/28/24 12:00 General: Alert, In no apparent distress, Oriented x3 HEENT: Atraumatic, PERRLA Neck: Supple, JVD not distended Respiratory: Clear to auscultation bilaterally, Normal air movement Cardiovascular: Regular rate/rhythm, Normal S1 S2 Gastrointestinal: Normal bowel sounds, No tenderness Musculoskeletal: Other (right bka) Integumentary: No rashes Neurological: Normal speech, Normal affect Laboratory Data at Discharge: WBC 8.10 thou/uL (4.3-10.9) 09/26/24 05:37 Hgb 9.5 g/dL (13.6-17.9) L 09/26/24 05:37 Hct 28.1 % (39.6-49.0) L 09/26/24 05:37 Plt Count 251 thou/uL (152-406) 09/26/24 05:37 Sodium 139 mEq/L (136-145) 09/27/24 07:23 Potassium 3.7 mEq/L (3.5-5.1) 09/27/24 07:23 BUN 26 mg/dL (7-18) H 09/27/24 07:23 Creatinine 1.23 mg/dL (0.70-1.30) 09/27/24 07:23 Glucose 76 mg/dL (74-106) 09/27/24 07:23 Phosphorus 3.3 mg/dL (2.5-4.9) 09/27/24 07:23 Magnesium 2.4 mg/dL (1.6-2.4) 09/27/24 07:23 Home Medications: LORazepam [Ativan*] 1 mg PO TIDP 03/06/24 Amlodipine [Norvasc*] 10 mg PO DAILY 30 Days #30 tab 03/08/24 Metoprolol Tartrate [Lopressor*] 25 mg PO BID 6AM 6PM 30 Days #60 tab 03/08/24 Atorvastatin Calcium [Lipitor*] 20 mg PO BEDTIME 05/04/24 Clopidogrel Bisulfate [Plavix] 75 mg PO DAILY 05/04/24 Sennosides/Docusate Sodium [Docusate Sodium-Sennosides Tab] 50 mg PO DAILY 07/18/24 Glimepiride 4 mg PO DAILY 14 Days #15 07/22/24 Hydrocodone 10/APAP 325 [Clarissa 10/325*] 1 tab PO TID PRN 5 Days #10 tab 07/22/24 Physician Discharge Instructions: Patient was admitted to the hospital for right lower extremity ischemia with chronic foot wound. He underwent a right BKA has been doing well postoperatively. He has not been accepted to inpatient rehab for further PT prior to discharge. There as followed below. Continue home medications as previously prescribed Right LE BKA incision/wound care Keep leg wrapped and elevated for first 48 hours after surgery then remove knee immobilizer cleanse incision recover surgical site with Xeroform followed by Kerlix followed by Aldo bandage wrapped snugly then reapply knee immobilizer. Should be changed daily Activity: Non-weight bearing Followup: Shaneka SANDHU,Carito-Francisco Huber DO [Primary Care Provider] - Thomas Toscano MD [ACTIVE - CAN ADMIT] - Time spent managing pt's care (in minutes): 41
== END 2024-09-28 13:17 | disposition home or self-care (01) | DRG 240 ==
LOC: ER 14:09 → ERHOLD 16:45 → 2ND 22:14
PROVIDERS: ADMIT Hospitalist; ATTEND Hospitalist
PROC: 0Y6H0Z1 Detachment at Right Lower Leg, High, Open Approach (ICD-10-PCS; principal; 2024-09-21)
DX: E11.52 Type 2 diabetes mellitus with diabetic peripheral angiopathy with gangrene (principal); M86.9 Osteomyelitis, unspecified; B96.5 Pseudomonas (aeruginosa) (mallei) (pseudomallei) as the cause of diseases classified elsewhere; N18.30 Chronic kidney disease, stage 3 unspecified; E11.40 Type 2 diabetes mellitus with diabetic neuropathy, unspecified; I70.221 Atherosclerosis of native arteries of extremities with rest pain, right leg; I12.9 Hypertensive chronic kidney disease with stage 1 through stage 4 chronic kidney disease, or unspecified chronic kidney disease; E11.65 Type 2 diabetes mellitus with hyperglycemia; E78.5 Hyperlipidemia, unspecified; E63.1 Imbalance of constituents of food intake; E11.69 Type 2 diabetes mellitus with other specified complication; E11.621 Type 2 diabetes mellitus with foot ulcer; L97.512 Non-pressure chronic ulcer of other part of right foot with fat layer exposed
CPT/HCPCS: 36415; 71045; 80048; 80202; 82947; 83036; 83735; 84100; 85025; 87040; 87070; 87077; 87186; 87205; 88307; 93005; 96365; 96375; 97110; 97161; 97530; 97542; 99285; J0171; J0692; J1100; J2003; J2185; J2270; J2405; J2543; J2704; J7030; J7050

== ENCOUNTER 2024-09-28 12:25 | Inpatient (IN) | payer OTHER ==
[2024-09-28] MEDS: HYDROCODONE/APAP 5/325 MG TAB PO PRN (15:03)
[2024-09-28] MEDS ORDERED: HYDROCODONE/APAP 7.5/325 MG TAB PO PRN (16:23)
--- NOTE | 2024-09-28 16:34 | PN ---
Subjective: Patient is lying in bed, by the bedside, not in any acute distress. Being transfer red to rehab unit. Denies any other problems. Objective: Vital Signs: Temperature 98, pulse 55, respiration 20, blood pressure 140/56. Lungs: Basal crackles. Heart: S1, S2. Regular. Abdomen: Soft, nontender. Bowel sounds present. Extremity: No edema. BKA wound site looks good. Laboratory Data: Reviewed. Assessment And Plan: 1. Status post right below knee amputation. The patient is doing well. 2. Peripheral arterial disease. 3. Pseudomonas aeruginosa of right foot wound. The patient is off antibiotic. Wound is healing well . 4. Diabetes mellitus and diabetic neuropathy. Continue supportive care and wound care. We will foll ow the patient as needed. NF/MODL Voice ID: [id number] Report ID: [id number]
[2024-09-28] MEDS: METOPROLOL TAR 25 MG TAB PO SCH (16:40)
[2024-09-28] MEDS: TRAMADOL HCL 50 MG TAB PO PRN (16:41)
[2024-09-28] MEDS: LIDOCAINE 4% PATCH TOP SCH (16:42)
[2024-09-28] MEDS: INSULIN REGULAR (HUMAN) 100 UNIT/ML SQ SCH (16:42)
[2024-09-28 16:54] LABS: Specific Gravity 1.012 (1.005-1.030); Sqamous Epithelial None Seen /HPF (None Seen); Urine Bacteria None Seen /HPF (<20); Urine Bilirubin NEGATIVE (Negative); Urine Blood 2+ (Negative); Urine Clarity Extremely Turbid (Clear); Urine Color Light-Orange (Yellow); Urine Crystals Unidentified Few /HPF (None Seen); Urine Culture Reflex Order REFLEXED; Urine Glucose 3+ (Negative); Urine Ketones NEGATIVE (Negative); Urine Micro Reflex YN NO BILL MICROSCOPIC; Urine Nitrite NEGATIVE (Negative); Urine Protein 1+ (Negative); Urine RBC >50 /HPF (None Seen); Urine Urobilinogen Normal (Normal); Urine WBC >50 /HPF (<5); Urine WBC Clump Many /HPF (None Seen); Urine Yeast (Budding) Many /HPF (None Seen); Urine pH 5.5 (5.0-7.0)
[2024-09-28] MEDS: GABAPENTIN 100 MG CAP PO SCH (20:08)
[2024-09-28] MEDS: APIXABAN 2.5 MG TABLET PO SCH (20:08)
[2024-09-28] MEDS: ATORVASTATIN 20 MG TAB PO SCH (20:08)
[2024-09-28] MEDS: LORAZEPAM 1 MG TABLET PO PRN (20:08)
[2024-09-28] MEDS: TRAMADOL HCL 50 MG TAB PO SCH (20:08)
[2024-09-28] MEDS: INSULIN GLARGINE 100 UNIT/ML SQ SCH (20:16)
[2024-09-28] MEDS: HYDROCODONE/APAP 7.5/325 MG TAB PO PRN (22:57)
--- NOTE | 2024-09-29 02:20 | HP ---
Date of Admission: 09/28/2024 Time Of Service: 1:10 p.m. Chief Complaint: "I had my right leg amputated." History Of Present Illness: Mr. Pelayo is an 84-year-old patient with hypertension, diabetes mellit us, chronic stage 3 kidney disease, gout, who had a progressive nonhealing right foot wound. The wou nd did not respond to conservative treatment. In addition, he had an occlusion blood flow down to th e right lower extremity. Due to his severe peripheral artery disease, he had right lower extremity i schemia which would result in osteomyelitis. Furthermore, this was exacerbated by his diabetes melli tus, hyperglycemia. As a result, the Vascular Service was consulted and the General Surgery Service as well. After IV antibiotics and optimization, he did have right juvim-vxm-gaow amputation. He was managed by insulin sliding scale. His comorbid conditions addressed and pain was addressed. He was eventually evaluated by the Physical and Occupational Therapy Service and found to require maximum a ssistance for transfers, mobilization, and performing activities of daily living. Prior to his infec tion and worsening condition, he was independent living with his , taking care of all activities of daily living without any difficulty. Postoperatively, he did have some intermittent confusion and did eventually return back to a prior good baseline. He was evaluated by Therapy Service, found to require minimum to moderate assistance for bed mobilization, unable to attempt ambulation due to defi cits and needed significant help for all activities of daily living. He is now cleared medically and now in the inpatient rehabilitation unit to help him return to his prior level of functioning and re duce risk of rehospitalization. Past Medical History: As noted above. Past Surgical History: Ureteral stent placement, cystoscopy, hernia repair, and of course right belo w-knee amputation. Allergies: NO KNOWN DRUG ALLERGIES. Medications: [place] 7.5/325 every 6 hours as needed, Norvasc 10 mg daily, Eliquis 2.5 mg twice daily, aspirin 81 mg daily, Lipitor 20 mg at bedtime, gabapentin 100 mg twice daily, Amaryl 4 mg daily with breakfast, Semglee insulin 7 units at bedtime, lidocaine patch apply 2 patches topically daily, matthew tonin 3 mg at bedtime, Ativan 1 mg every 8 hours as needed, Lopressor 25 mg twice daily, Senokot-S 2 at bedtime, tramadol 50 mg twice daily. Laboratory Studies: His blood sugars ranged from 152 to 276. White blood cell count 8.1, hemoglobin 9.5, hematocrit 28.1, platelets 251. His sodium 139, potassium 3.8, BUN 29, creatinine 1.36, calciu m 8.0. X-ray/imaging: Chest x-ray on 09/19/2024, no evidence of acute cardiopulmonary abnormalities. EKG o n 09/19/2024 shows sinus rhythm, first-degree AV block, right bundle-branch block. Consultation: The patient was seen by Dr. Eisenberg from the ID Service and he is managing his antibiot ic regimen. Dr. Eisenberg's recommendations are to treat Pseudomonas aeruginosa which from the right fo ot wound. The patient did complete treatment. He is off antibiotics. Note, that is healing well an d recommend continued supportive care and aggressive therapy. Family History: Noncontributory. Social History: No recent alcohol, tobacco, or IV drug use. Review of Systems: Some mild right phantom limb pain. Mild anxiety and depression per the patient's , but he unders tood that he had to lose right leg and is working through that. Current Level Of Functioning: Currently, setup assistance for grooming, eating, moderate assistance for bathing, supervision for upper body dressing, moderate assistance for lower body dressing, donnin g and doffing footwear, moderate assistance for transferring from bed to chair, to toilet, to shower. Not yet ambulated. Wheelchair, did cover 250 feet. Physical Examination: Vital Signs: Blood pressure is 120/53, pulse 64, respiratory rate 16, temperature 98.1, oxygen satur ation 100%. Weight 145 pounds, height 6 feet, BMI 19.7. General: Mr. Pelayo is resting in bed. He is in no acute distress. HEENT: He is normocephalic, atraumatic. Sclerae anicteric. Oropharynx pink, moist. Neck: Supple. Chest: Clear. Extremities: Right below-knee amputation stump has good hemostasis and is well bandaged. He has no focal neurological deficits. Rehab And Medical Assessment And Plan: Mr. Pelayo is an 84-year-old patient, admitted [facility] the [facility] hospital [facility] rehabilitation unit with impairment category 10, amputation of lower extremity. His impairment g roup code is 05.4, unilateral lower limb vpicy-rze-yekr amputation. Etiologic diagnosis, severe jermaine pheral arterial disease. Comorbidities are decreased mobility, decreased physical functioning. Of c farae, he is at risk of gangrene. He has already had the amputation of the lower extremity. He does have pain, constipation, mild depression and anxiety, diabetes mellitus, hypertension, dyslipidemia, DVT risk. Plan: He will continue with all of his medications as noted. He will have physical, occupational, a nd speech therapy if need be up to 3.5 hours, 5 of 7 days, and will continue to be managed as needed by Dr. Eisenberg from the ID Service and Dr. Toscano who performed the amputation will be also following the patient. Comorbidities That Are Impacting Rehabilitation: At this point after the amputation, he is subject t o having phantom limb pain that was discussed, gabapentin is used for that. Blood sugars will be agg ressively controlled along with hypertension, dyslipidemia. Fall precautions strictly adhered to and that was discussed with the patient. He would like to have his with him as much as possible alba harp and that accommodation was made. The patient's did have a reclining chair that she may be able to spend the night as he is in the hospital. Rehab Specific Plan: Mr. Pelayo will have physical, occupational, and speech therapy to allow him t o learn how to transfer without the use of the right lower extremity, using his left lower extremity and both upper extremities, sliding board as needed and mobilizing via wheelchair. Work with getting off and on the toilet, in and out shower, and dressing upper and lower body will be done. Mr. Pelayo has a good understanding of the process of admission to the inpatient rehabilitation unit and how he will benefit from physical and occupational therapy to help him learn how to deal with th e right below-knee amputation and recover and become independent. He will have 24 hours a day, 7 day s a week, skilled rehabilitation and nursing, daily physician evaluation and management, and social s ervices evaluation and management for discharge planning. Barriers To Discharge: Currently, his comorbid conditions do not necessarily provide barriers to his discharge. He has to relearn how to mobilize and transfer and to be safe and not fall. Length Of Stay: About 12 days. Disposition: Home with family including and to continue therapy via Home Health. Prognosis: Good. Code Status: Full code. Rehab Specific Goals: 1. Become independent with upper and lower body dressing and donning and doffing footwear on the left . 2. Independently perform all activities of daily living. 3. Independently perform showering and toileting. 4. Independently mobilize a wheelchair 250 feet. 5. Independently at least 50 feet with walker and hopping. 6. Independently go up and down 5 steps with hand rails on either side. 7. Independently perform cognitive functioning. The above goals were reviewed with Mr. Pelayo and and they are in agreement. By signing this document, I acknowledge I personally performed a full physical examination on Mr. Junior steward no later than 24 hours after his admission to the inpatient rehabilitation unit and determined h sommer is able to tolerate the above course of treatment at an intensive level for a reasonable period of time. A detailed individualized plan of care for him will be completed by hospital day 4 based on th e preadmission screen, history and physical, and therapy evaluations. JAIME Voice ID: [id number]
[2024-09-29 06:24] LABS: Absolute Basophils 0.1 K/uL (0-0.5); Absolute Eosinophils 0.3 K/uL (0-0.5); Absolute Lymphocytes (CBC) 1.2 K/uL (0.7-4.9); Absolute Monocytes 0.9 K/uL (0.1-1.3); Absolute Neutrophil 4.1 K/uL (1.8-8.0); Basophils % 0.9 % (0-1.3); Eosinophils % 4.4 % (0-4.4); Hematocrit 28.5 % (39.6-49.0); Hemoglobin 9.5 g/dL (13.6-17.9); Lymphocytes % 18.7 % (15.3-44.8); MCH 30.5 pg (27.0-35.0); MCHC 33.2 g/dL (32.0-36.0); MPV 7.1 fL (7.6-11.3); Platelets 301 thou/uL (152-406); Red Cell Distribution Width 14.1 % (12.1-15.2)
[2024-09-29] MEDS ORDERED: LIDOCAINE 4% PATCH TOP SCH (08:00)
[2024-09-29] MEDS: GLIMEPIRIDE 2 MG TABLET PO SCH (08:41)
[2024-09-29] MEDS: ASPIRIN EC 81 MG TAB PO SCH (08:41)
[2024-09-29] MEDS: CRANBERRY FRUIT EXTRACT 425 MG CAPSULE PO SCH (08:42)
[2024-09-29] MEDS: AMLODIPINE 10 MG TAB PO SCH (08:42)
[2024-09-29 10:06] LABS: Albumin 1.9 g/dL (3.4-5.0); Anion Gap 9.7 mEq/L (5.0-15.0); Magnesium 2.4 mg/dL (1.6-2.4); Potassium 3.7 mEq/L (3.5-5.1); Prealbumin 6.4 mg/dL (20-40)
[2024-09-29] MEDS: MELATONIN 3 MG TABLET PO PRN (19:15)
[2024-09-29] MEDS: GABAPENTIN 100 MG CAP PO SCH (19:15)
--- NOTE | 2024-09-30 01:01 | PN ---
Date of Progress Note: 09/29/2024 Time Of Service: 1:15 p.m. Subjective: Mr. Pelayo is in the gym doing exercises. He denies any phantom limb pain in the right lower extremity where he is status post right below-knee amputation. He has no new complaints excep t the food is not doing too well. His appetite is poor. Objective: No fevers, chills, nausea, vomiting, myalgias, arthralgias. No phantom limb pain as note d. Physical Examination: Vital Signs: Blood pressure 143/63, pulse 66, respiratory rate 18, temperature is 98.1, oxygen satur ation 96%. General: Mr. Pelayo is resting comfortably. Does appear slightly underweight. HEENT: Otherwise, he is normocephalic, atraumatic. Sclerae anicteric. Oropharynx pink and moist. Neck: Supple. Chest: Clear. Extremities: His right lower extremity stump is well bandaged with good hemostasis. Dr. Toscano did this surgery. Laboratory Studies: White blood cell count 6.5, hemoglobin 9.5, platelets 301. Sodium 137, potassiu m 3.7, chloride 104, carbon dioxide 27, BUN 24, creatinine 1.25, glucose ranged from 154 to 199. Hem oglobin A1c is 9.0. Calcium 8.4, magnesium 2.4, albumin 1.9, prealbumin 6.4. Urinalysis from the shows extreme turbidity, 3+ glucose, 2+ blood, 500 esterase, greater than 50 red blood cells, grea ter than 50 white blood cells, clumps of white blood cells, no bacteria seen, many budding yeast, 1+ total protein, and he did grow between 10,000 and 100,000 colony forming units of mixed aster. X-ray/imaging: No new x-rays or imaging. Medications: [place] 7.5/325 every 8 hours as needed, Norvasc 10 mg daily, Eliquis 2.5 mg twice daily, aspirin 81 mg daily, Lipitor 20 mg at bedtime, gabapentin 200 mg twice daily, Amaryl 4 mg daily, Iker glee insulin 7 units at bedtime, lidocaine patch apply 2 topically daily, Ativan 1 mg every 8 hours a s needed, melatonin 3 mg at bedtime, Lopressor 25 mg twice daily, Senokot-S 2 at bedtime, Ultram 50 m g every 6 hours and 50 mg twice daily scheduled. Progress Made With Physical, Occupational, And Speech Therapy: With physical therapy today, carmele d multiple oxmter-vs-dak transfers independently, performed multiple aef-wy-dtcex transfers from diff erent position with moderate assistance to minimum assistance. Ambulated with a rolling walker 20 fe et, 50 feet twice and 8 feet with minimum assistance. Mobilized the wheelchair 375 feet with standby assistance. With occupational therapy, toilet transfer to squat and pivot transfer impro haven to a minimum assistance. Bqa-ih-apvfg during clothing management done with minimum assistance. He is beginning to work with Speech, weekly assessment. Has BIMS score of 7/15 and 9/30 on the SLUMS indicating cognitive deficits including temporal and spatial orientation, short-term memory, organiz ational thinking, and problem-solving skills. Assessment: Mr. Pelayo is an 84-year-old patient in rehabilitation unit with severe peripheral barber ry disease, status post right below-knee amputation. He does have some cognitive impairment as noted , renal insufficiency, hypertension, very little phantom limb pain, diabetes mellitus, dyslipidemia, risk of deep vein thrombus in left lower extremities. Plan: We will continue with physical, occupational and speech therapy. He will continue all comorbi d condition medications. Nutritional status will be addressed. His hemoglobin A1c is elevated for w hich he is followed carefully for spastic blood sugars. JAYSON/MIRIAM Voice ID: [id number] Report ID: [id number]
--- NOTE | 2024-09-30 14:20 | P.RH.PN ---
Estimated Length of Stay: 13 Expected Discharge Date: 10/08/24 Discharge Disposition Plan: Home Family Support: Yes Senior Care Goal: Mobility, Transfers, Self Care Vital Signs: Last Vital Signs Temp 98.0 F 09/30/24 07:28 Pulse 65 09/30/24 09:06 Resp 18 09/30/24 07:28 BP 103/55 L 09/30/24 09:06 Pulse Ox 99 09/30/24 07:28 Laboratory: Laboratory Last Values WBC 6.50 thou/uL (4.3-10.9) 09/29/24 05:25 RBC 3.10 M/uL (4.33-5.43) L 09/29/24 05:25 Hgb 9.5 g/dL (13.6-17.9) L 09/29/24 05:25 Hct 28.5 % (39.6-49.0) L 09/29/24 05:25 MCV 92.0 fL (80-100) 09/29/24 05:25 MCH 30.5 pg (27.0-35.0) 09/29/24 05:25 MCHC 33.2 g/dL (32.0-36.0) 09/29/24 05:25 RDW 14.1 % (12.1-15.2) 09/29/24 05:25 Plt Count 301 thou/uL (152-406) 09/29/24 05:25 MPV 7.1 fL (7.6-11.3) L 09/29/24 05:25 Neutrophils % 62.0 % (41.7-73.7) 09/29/24 05:25 Lymphocytes % 18.7 % (15.3-44.8) 09/29/24 05:25 Monocytes % 14.0 % (3.3-12.3) H 09/29/24 05:25 Eosinophils % 4.4 % (0-4.4) 09/29/24 05:25 Basophils % 0.9 % (0-1.3) 09/29/24 05:25 Absolute Neutrophils 4.1 K/uL (1.8-8.0) 09/29/24 05:25 Absolute Lymphocytes 1.2 K/uL (0.7-4.9) 09/29/24 05:25 Absolute Monocytes 0.9 K/uL (0.1-1.3) 09/29/24 05:25 Absolute Eosinophils 0.3 K/uL (0-0.5) 09/29/24 05:25 Absolute Basophils 0.1 K/uL (0-0.5) 09/29/24 05:25 Sodium 137 mEq/L (136-145) 09/29/24 05:25 Potassium 3.7 mEq/L (3.5-5.1) 09/29/24 05:25 Chloride 104 mEq/L (98-107) 09/29/24 05:25 Carbon Dioxide 27 mEq/L (21-32) 09/29/24 05:25 Anion Gap 9.7 mEq/L (5.0-15.0) 09/29/24 05:25 BUN 24 mg/dL (7-18) H 09/29/24 05:25 Creatinine 1.25 mg/dL (0.70-1.30) 09/29/24 05:25 Est GFR (CKD-EPI) 57 ml/min (=/>90) L 09/29/24 05:25 Glucose 156 mg/dL (74-106) H 09/29/24 05:25 POC Glucose 208 mg/dL (65-120) H 09/30/24 11:52 Hemoglobin A1c 9.0 % (4.2-6.3) H 09/29/24 05:25 Calcium 8.4 mg/dL (8.5-10.1) L 09/29/24 05:25 Magnesium 2.4 mg/dL (1.6-2.4) 09/29/24 05:25 Albumin 1.9 g/dL (3.4-5.0) L 09/29/24 05:25 Prealbumin 6.4 mg/dL (20-40) L 09/29/24 05:25 Urine Color Light-orange (Yellow) 09/28/24 16:20 Urine Clarity Extremely turbid (Clear) H 09/28/24 16:20 Urine pH 5.5 (5.0-7.0) 09/28/24 16:20 Ur Specific [place] 1.012 (1.005-1.030) 09/28/24 16:20 Glucose (UA)(Auto) 3+ (Negative) H 09/28/24 16:20 Urine Ketones Negative (Negative) 09/28/24 16:20 Urine Blood 2+ (Negative) H 09/28/24 16:20 Urine Nitrite Negative (Negative) 09/28/24 16:20 Urine Bilirubin Negative (Negative) 09/28/24 16:20 Urine Urobilinogen Normal (Normal) 09/28/24 16:20 Ur Leukocyte Esterase 500 Marco/uL (Negative) H 09/28/24 16:20 Urine RBC >50 /HPF (None Seen) H 09/28/24 16:20 Urine WBC >50 /HPF (<5) H 09/28/24 16:20 Urine WBC Clumps Many /HPF (None Seen) H 09/28/24 16:20 Ur Squamous Epith Cells None seen /HPF (None Seen) 09/28/24 16:20 Unidentified Crystals Few /HPF (None Seen) 09/28/24 16:20 Urine Bacteria None seen /HPF (<20) 09/28/24 16:20 Urine Yeast (Budding) Many /HPF (None Seen) H 09/28/24 16:20 Urine Culture Reflexed Reflexed 09/28/24 16:20 Urine Total Protein 1+ (Negative) H 09/28/24 16:20 Weight: 145 lb Wound Present: No Closed Surgical Incision Present: Yes Negative Pressure Wound Therapy Present: No Physician Update: He has moderate cognitive impairment. He appears to have back pain more than the right BKA. Bed mobility min assist. RW 20', WC 375' SBA. OT no LTGn and 1 STG. Min assist transfers, dressing with setup. Mod assist lower body. Summary: Patient's care plan and tank terminal gauger goals have been reviewed and revised as necessary. Please see the Rehabilitation Signature page for all necessary signatures.
[2024-09-30] MEDS: AMLODIPINE 5 MG TAB PO SCH (20:58)
[2024-09-30] MEDS: INSULIN GLARGINE 100 UNIT/ML SQ SCH (20:59)
[2024-10-01] MEDS: METOPROLOL TAR 25 MG TAB PO SCH (21:29)
[2024-10-01] MEDS: GLUCERNA SHAKE 237 ML CAN PO SCH (21:53)
[2024-10-01] MEDS: DOCUSATE NA/SENNA CONC 1 TAB PO PRN (21:54)
[2024-10-01] MEDS: DULOXETINE 20 MG CAP PO SCH (21:54)
[2024-10-02] MEDS: DOCUSATE NA/SENNA CONC 1 TAB PO SCH (08:25)
[2024-10-02] MEDS: AMLODIPINE 5 MG TAB PO SCH (08:26)
[2024-10-02] MEDS ORDERED: BISACODYL 10 MG RECTAL SUPP PR PRN (22:58)
[2024-10-03] MEDS: MAGNESIUM HYDROXIDE 8% 30 ML PO SCH (09:16)
--- NOTE | 2024-10-03 16:59 | RAD REPORT ---
Exam:Abdomen 1 View ([facility]) Clinical history: Abdominal pain. Constipation FINDINGS: The bowel gas pattern is unremarkable A large amount of stools present throughout the colon. This may represent a fecal impaction. Calcifications within the pelvis presumably phleboliths
[2024-10-03] MEDS: FLEET ENEMA ADULT PR ONE (20:58)
--- NOTE | 2024-10-04 02:46 | PN ---
Date of Progress Note: 10/03/2024 Time Of Service: 1:15 p.m. Subjective: Mr. Pelayo is resting in the room. at bedside. The staff did note that he was ac tually digging stool with his fingers out and was told to really not do that. He actually has had no w multiple stool softeners, laxatives, will have Dulcolax suppository. He did have a KUB x-ray done today. The study showed a large amount of stool present throughout the colon and it may potentially represent fecal impaction. There is calcifications within the pelvis, presumably phleboliths. The p atient then had Fleet enema to help him with his constipation. Objective: Again reports difficulty with stools and hard stools present and some difficulty with eat ing. He has poor appetite and probably related to constipation and some of course myalgias and arthr algias. Denies any phantom limb pain in the right lower extremity, where he has below-knee amputatio n. No other positives on the systems review. Physical Examination: Vital Signs: Blood pressure 128/61, pulse 62, respiratory rate 18, temperature 98.1, oxygen saturati on 98%. Weight 141 pounds, height 6 feet, BMI 19.9. General: Again, Mr. Pelayo is mobilizing a wheelchair. HEENT: He is normocephalic, atraumatic. Sclerae anicteric. Oropharynx pink, moist. Neck: Supple. Chest: Clear. Extremities: Does have the right below-knee amputation site well bandaged. Good hemostasis there. Medications: Medications have been reviewed. He now will have Fleet enema on board, otherwise milk of magnesia as well added and Senokot-S for his constipation. Progress Made With Physical, Occupational, And Speech Therapy: With physical therapy today, performe d myfuun-oj-qng transfers independently, perform multiple bxv-ng-hzvhr transfers from different sitti ng surfaces with minimum assistance. Also with a rolling walker, covered 80 feet, 40 feet, and 60 fe et twice with contact guard assistance. Mobilized a wheelchair 300 feet with standby assistance. Wi th occupational therapy, required maximum assistance for toilet hygiene, going up and down pants, had some self-limiting behaviors. His was worried about him going home and her being able to manag e him. It is strongly encouraged that she participate with therapy to see what he is able to do and the degree to which she may be able to help him. With speech, the patient is oriented to temporal co ncepts with 50% accuracy and spatial concepts with 75% accuracy. Assessment: Mr. Pelayo is an 84-year-old patient in rehabilitation unit with right above-knee amput ation due to severe peripheral arterial disease. He has significant constipation seen by [facility], will n ow have Fleet enema for that, stool softeners and laxatives as well on board. No phantom limb pain. He does have prostate hypertrophy, hypertension, anxiety, diabetes mellitus, dyslipidemia, and neuro pathic pain. Plan: He will continue with physical, occupational, and speech therapy 3.5 hours, 5 of 7 days. We w ill continue aspirin 81 mg daily, Eliquis 2.5 mg daily, Norvasc 5 mg twice daily. He has [place] on bk ross for pain, Cymbalta for depression, Glucerna for malnutrition, gabapentin for neuropathic pain, Am aryl for his diabetes mellitus along with Semglee insulin 7 units at bedtime. The patient's mary ellen d that she may use insulin FlexPen and that will be easier and that training will be done. Prescript ion was called in for that today. Otherwise, all medications are continued as noted. Comorbidities Impacting Rehabilitation: Currently, significantly constipated, will have Fleet enema, and may have to do disimpaction if need be to help with his stool removal. LB/HEATHERL Voice ID: [id number] Report ID: [id number]
[2024-10-04 08:26] LABS: Absolute Basophils 0.1 K/uL (0-0.5); Absolute Eosinophils 0.3 K/uL (0-0.5); Absolute Lymphocytes (CBC) 1.2 K/uL (0.7-4.9); Absolute Monocytes 0.9 K/uL (0.1-1.3); Absolute Neutrophil 7.1 K/uL (1.8-8.0); Basophils % 0.6 % (0-1.3); Eosinophils % 3.5 % (0-4.4); Hematocrit 28.6 % (39.6-49.0); Hemoglobin 9.4 g/dL (13.6-17.9); Lymphocytes % 12.1 % (15.3-44.8); MCH 30.2 pg (27.0-35.0); MCHC 32.8 g/dL (32.0-36.0); MCV 92.1 fL (80-100); Neutrophils % 74.8 % (41.7-73.7); Nucleated Red Blood Cells % 0.1 % (0-0); Platelets 417 thou/uL (152-406); Red Cell Distribution Width 14.5 % (12.1-15.2)
[2024-10-04 08:39] LABS: Albumin 2.3 g/dL (3.4-5.0); Anion Gap 7.6 mEq/L (5.0-15.0); Magnesium 2.7 mg/dL (1.6-2.4); Potassium 3.6 mEq/L (3.5-5.1); Prealbumin 9.7 mg/dL (20-40)
[2024-10-04] MEDS: FLEET ENEMA ADULT PR ONE (15:35)
[2024-10-04] MEDS: LANTUS 100 UNIT/ML SQ SCH (19:27)
[2024-10-04] MEDS ORDERED: INSULIN GLARGINE 100 UNIT/ML SQ SCH (21:00)
--- NOTE | 2024-10-04 22:21 | PN ---
Date of Progress Note: 10/04/2024 Time Of Service: 1:20 p.m. Subjective: Mr. Pelayo is resting comfortably in bed. The findings of the K[facility] were communicated to the patient where he has significant amount of retained stool and he will have a suppository. He di d refuse a Fleet Enema yesterday. Review of Systems: Mild abdominal discomfort. Otherwise, he denies any phantom limb pain and is otherwise doing well. Physical Examination: Vital Signs: Blood pressure 140/58, pulse of 65, respiratory rate 17, temperature 97.6, oxygen satur ation 98%. General: Mr. Pelayo is resting comfortably in no significant distress. HEENT: Appears normocephalic, atraumatic. Sclerae anicteric. Oropharynx pink and moist. Neck: Supple. Extremities: He does have the right above the knee amputation with good hemostasis there and no tang ac limb pain. Assessment: He has hypertension, decreased mobility, decreased physical functioning, dyslipidemia, d iabetes mellitus, neuropathic pain, and anxiety. Plan: 1. We will continue with physical and occupational therapy, which is also with speech therapy 3.5 pernell rs, 5 of 7 days. 2. The speech pathologist did identify on his evaluation today he was oriented to temporal concepts w ith 75% accuracy and spatial concepts with also 75% accuracy and speech therapy will continue as well . His comorbid condition medications will be continued including for dyslipidemia, DVT risk reductio n, hypertension management, pain management, with address constipation with the Dulcolax suppository and may again ask and request him if he would take a Fleet Enema if he is unsuccessful with the Dulcolax suppository. JAYSON/MODL Voice ID: [id number] Report ID: [id number]
--- NOTE | 2024-10-05 19:49 | PN ---
Date of Progress Note: 10/05/2024 Time Of Service: 1:25 p.m. Subjective: Mr. Pelayo is resting in bed, feeling much better after a bowel movement. The right lo wer extremity where there is a below-knee amputation shows no phantom limb pain. He is actually feel ing very good about his therapy. He denies any fevers, chills, nausea, vomiting. No myalgias or art hralgias. No rash, again no phantom limb pain. Objective: Vital Signs: Blood pressure 128/59, pulse of 54, respiratory rate 18, temperature 97.8, oxygen saturation 99%. General: Mr. Pelayo again is sitting in a chair beside bed. HEENT: He is normocephalic, atraumatic. Sclerae are anicteric. Oropharynx moist. Neck: Supple. Chest: Clear. Heart: Regular. Extremities: His right below the knee amputation stump has good hemostasis. Laboratory Studies: Blood sugars ranged from a low 56 this morning to 175. X-ray/imaging: No new x-rays or imaging. Medications: Medications have been reviewed and are unchanged. Progress Made With Physical, Occupational, And Speech Therapy: With physical therapy, he did multipl e fncrql-cl-hue transfers independently, perform multiple yac-fk-onmqw transfers on different surface s with a rolling walker from minimum to contact guard assistance. Toilet transfers and using grab ba rs with minimum assistance to moderate assistance. He ambulated 65 feet twice with a rolling walker with contact guard assistance. With occupational therapy, contact guard assistance for edge of bed t o wheelchair transfer. Did have some mild confusion with doing activities of daily living, required verbal cues to sequence steps for bathing. His was present during the training session. Bertha estes, she is very apprehensive about him going home with her despite being in the training sessions. Philomena e is aware that if he falls, she is unable to pick him up and is wanting him to be in a facility wher e there is 24-hour care supervision. The patient, however, is working very hard and his goal is to r eturn back home. Regarding speech, Mr. Pelayo was able to be oriented to temporal relationships with 25% accuracy and spatial relationships with 75% accuracy. Short-term memory addressed during a picture recall task, he recalled 2 of 3 unrelated pictures after 1 minute and on the second attempt. He named 10 concrete category members with maximum assistance. Assessment: Mr. Pelayo is an 84-year-old patient in the rehabilitation unit with severe peripheral arterial disease, status post right below-knee amputation. He has decreased mobility, decreased phys ical functioning, gross pain. He has hypertension, insomnia, constipation that has improved, diabete s mellitus and note Amaryl is just 4 mg daily as he had a low blood sugar this morning. He has neuro pathic pain with gabapentin 200 mg twice daily, Glucerna for malnutrition, duloxetine for neuropathic pain and depression, aspirin for stroke risk reduction, Eliquis for DVT risk reduction, and Thrall on board for pain. Plan: In terms of plan, he will continue with physical, occupational, and speech therapy 3.5 hours, 5 of 7 days. In addition, continue with comorbid condition medications, which have been noted above. His plan, if he is doing well is for him to go back home, continue therapy via Home Health with th e help of his and family members, she is worried about him falling and having injury at home and the plan may be for him to go to prison. JAYSON/MIRIAM Voice ID: [id number] Report ID: [id number]
--- NOTE | 2024-10-06 20:41 | PN ---
Date of Progress Note: 10/06/2024 Time Of Service: 1:15 p.m. Subjective: Mr. Pelayo is in a chair, mobilizing around the unit. He is doing very well. Denies a ny phantom limb pain, where he has right ubzmm-xha-uajk amputation. Objective: No fevers, chills, nausea, vomiting. No myalgias, arthralgias, rash, or other complaints . Physical Examination: Vital Signs: Blood pressure is 156/68, pulse 84, respiratory rate 16, temperature 97.5, oxygen satur ation 97%. General: Mr. Pelayo is resting comfortably. HEENT: He is normocephalic, atraumatic. Sclerae anicteric. Oropharynx pink and moist. Extremities: Good hemostasis at the stump of the right ghtlu-ptk-ibhp amputation site. Laboratory Studies: Blood sugars ranged from 81 up to 151. X-ray/imaging: No new x-rays or imaging. Progress Made With Physical, Occupational, And Speech Therapy: With physical therapy today, he did b ed mobilization, including sit to supine, scooting, and turning with standby assistance. He also amb ulated 60 feet, 40 feet, and 20 feet with moderate assistance to minimum assistance. Mobilized a whe elchair 500 feet with supervision to standby assistance. With occupational therapy, he was educated on pulling up pants while supine in bed and required supervision for lower body dressing. Regarding his speech, the patient was unable to complete the tasks that he was given. He was modified into an alternating attention task. Orientation is a challenge noted by the therapist, recalling temporal in formation with 75% accuracy and spatial information with 50% accuracy. Assessment: Mr. Pelayo is an 84-year-old patient in the rehabilitation unit with severe peripheral artery disease, status post right lrvsl-gfa-kzya amputation. He has decreased mobility, decreased ph ysical functioning, significant cognitive impairment. He has hypertension, dyslipidemia, neuropathic pain, depression, diabetes mellitus, constipation, insomnia. Plan: We will continue with physical, occupational, and speech therapy as noted 3-1/2 hours, 5/7 day s. He will continue with comorbid condition medications, including to help with constipation and man agement of his pain. Working with Speech to help with his cognitive deficits. Lipitor for dyslipide gerry. Has Eliquis for DVT prophylaxis. [place]ston for pain. LB/MODL Voice ID: [id number] Report ID: [id number]
[2024-10-07] MEDS ORDERED: ACETAMINOPHEN 500 MG TAB PO PRN (09:21)
--- NOTE | 2024-10-07 13:33 | P.RH.PN ---
Estimated Length of Stay: 13 Expected Discharge Date: 10/11/24 Discharge Disposition Plan: Residential Facility Family Support: Yes [employer] Goal: Mobility, Transfers, Self Care Vital Signs: Last Vital Signs Temp 97.8 F 10/07/24 07:19 Pulse 55 10/07/24 08:12 Resp 18 10/07/24 08:12 BP 125/58 L 10/07/24 08:12 Pulse Ox 99 10/07/24 08:12 Laboratory: Laboratory Last Values WBC 9.50 thou/uL (4.3-10.9) 10/04/24 07:58 RBC 3.10 M/uL (4.33-5.43) L 10/04/24 07:58 Hgb 9.4 g/dL (13.6-17.9) L 10/04/24 07:58 Hct 28.6 % (39.6-49.0) L 10/04/24 07:58 MCV 92.1 fL (80-100) 10/04/24 07:58 MCH 30.2 pg (27.0-35.0) 10/04/24 07:58 MCHC 32.8 g/dL (32.0-36.0) 10/04/24 07:58 RDW 14.5 % (12.1-15.2) 10/04/24 07:58 Plt Count 417 thou/uL (152-406) H 10/04/24 07:58 MPV 7.0 fL (7.6-11.3) L 10/04/24 07:58 Neutrophils % 74.8 % (41.7-73.7) H 10/04/24 07:58 Lymphocytes % 12.1 % (15.3-44.8) L 10/04/24 07:58 Monocytes % 9.0 % (3.3-12.3) 10/04/24 07:58 Eosinophils % 3.5 % (0-4.4) 10/04/24 07:58 Basophils % 0.6 % (0-1.3) 10/04/24 07:58 Absolute Neutrophils 7.1 K/uL (1.8-8.0) 10/04/24 07:58 Absolute Lymphocytes 1.2 K/uL (0.7-4.9) 10/04/24 07:58 Absolute Monocytes 0.9 K/uL (0.1-1.3) 10/04/24 07:58 Absolute Eosinophils 0.3 K/uL (0-0.5) 10/04/24 07:58 Absolute Basophils 0.1 K/uL (0-0.5) 10/04/24 07:58 Sodium 139 mEq/L (136-145) 10/04/24 07:58 Potassium 3.6 mEq/L (3.5-5.1) 10/04/24 07:58 Chloride 105 mEq/L (98-107) 10/04/24 07:58 Carbon Dioxide 30 mEq/L (21-32) 10/04/24 07:58 Anion Gap 7.6 mEq/L (5.0-15.0) 10/04/24 07:58 BUN 23 mg/dL (7-18) H 10/04/24 07:58 Creatinine 1.27 mg/dL (0.70-1.30) 10/04/24 07:58 Est GFR (CKD-EPI) 56 ml/min (=/>90) L 10/04/24 07:58 Glucose 112 mg/dL (74-106) H 10/04/24 07:58 POC Glucose 115 mg/dL (65-120) 10/07/24 11:46 Hemoglobin A1c 9.0 % (4.2-6.3) H 09/29/24 05:25 Calcium 8.3 mg/dL (8.5-10.1) L 10/04/24 07:58 Magnesium 2.7 mg/dL (1.6-2.4) H 10/04/24 07:58 Albumin 2.3 g/dL (3.4-5.0) L 10/04/24 07:58 Prealbumin 9.7 mg/dL (20-40) L 10/04/24 07:58 Urine Color Light-orange (Yellow) 09/28/24 16:20 Urine Clarity Extremely turbid (Clear) H 09/28/24 16:20 Urine pH 5.5 (5.0-7.0) 09/28/24 16:20 Ur Specific [place] 1.012 (1.005-1.030) 09/28/24 16:20 Glucose (UA)(Auto) 3+ (Negative) H 09/28/24 16:20 Urine Ketones Negative (Negative) 09/28/24 16:20 Urine Blood 2+ (Negative) H 09/28/24 16:20 Urine Nitrite Negative (Negative) 09/28/24 16:20 Urine Bilirubin Negative (Negative) 09/28/24 16:20 Urine Urobilinogen Normal (Normal) 09/28/24 16:20 Ur Leukocyte Esterase 500 Marco/uL (Negative) H 09/28/24 16:20 Urine RBC >50 /HPF (None Seen) H 09/28/24 16:20 Urine WBC >50 /HPF (<5) H 09/28/24 16:20 Urine WBC Clumps Many /HPF (None Seen) H 09/28/24 16:20 Ur Squamous Epith Cells None seen /HPF (None Seen) 09/28/24 16:20 Unidentified Crystals Few /HPF (None Seen) 09/28/24 16:20 Urine Bacteria None seen /HPF (<20) 09/28/24 16:20 Urine Yeast (Budding) Many /HPF (None Seen) H 09/28/24 16:20 Urine Culture Reflexed Reflexed 09/28/24 16:20 Urine Total Protein 1+ (Negative) H 09/28/24 16:20 Weight: 141 lb 1.6 oz Wound Present: No Closed Surgical Incision Present: Yes Negative Pressure Wound Therapy Present: No Physician Update: Labs were reviewed and are stable. Moderate cognitive deficits. BIMS and SLUMS 9. Very poor memory, organizational thinking. Bed mobility SBA, CGA 70% of the time with transfers. Poor planning of activities with CGA. RW 60' with mod assist. He has transient right shoulder pain. One stair with max assist. WC 200' with CG. CGA for toileting, supervision for showers and lower body dressing. Met 4/6 LTG. Summary: Patient's care plan and senior living goals have been reviewed and revised as necessary. Please see the Rehabilitation Signature page for all necessary signatures.
[2024-10-08 05:26] VITALS: BMI 18.4
[2024-10-10 05:37] LABS: Absolute Basophils 0.1 K/uL (0-0.5); Absolute Eosinophils 0.3 K/uL (0-0.5); Absolute Lymphocytes (CBC) 1.3 K/uL (0.7-4.9); Absolute Monocytes 0.8 K/uL (0.1-1.3); Absolute Neutrophil 3.5 K/uL (1.8-8.0); Hematocrit 24.4 % (39.6-49.0); Hemoglobin 8.1 g/dL (13.6-17.9); Lymphocytes % 22.4 % (15.3-44.8); MCH 30.6 pg (27.0-35.0); MCHC 33.2 g/dL (32.0-36.0); MCV 92.2 fL (80-100); MPV 6.5 fL (7.6-11.3); Monocytes % 12.8 % (3.3-12.3); Neutrophils % 58.8 % (41.7-73.7); Platelets 418 thou/uL (152-406); RBC Red Blood Cell Count 2.65 M/uL (4.33-5.43); Red Cell Distribution Width 15.4 % (12.1-15.2)
[2024-10-10 06:00] LABS: Albumin 2.1 g/dL (3.4-5.0); Anion Gap 7.8 mEq/L (5.0-15.0); Magnesium 2.9 mg/dL (1.6-2.4); Potassium 3.8 mEq/L (3.5-5.1); Prealbumin 10.8 mg/dL (20-40)
--- NOTE | 2024-10-11 00:35 | PN ---
Date of Progress Note: 10/10/2024 Time Of Service: 1:15. Subjective: Mr. Pelayo is mobilizing in a wheelchair around the unit. He is very happy with his th erapy so far and glad to be going to jail in the morning. He has no phantom limb pain in the right below-knee amputation. Objective: No fevers, chills, nausea, vomiting, myalgias, arthralgias. No other complaints. Physical Examination: Vital Signs: Blood pressure 126/58, pulse 55, respiratory rate 18, temperature 97.5, oxygen saturati on 98%. General: Mr. Pelayo is a chair wheeling around the unit. He is in no acute distress. HEENT: Normocephalic, atraumatic. Sclerae anicteric. Oropharynx pink and moist. Neck: Supple. Chest: Clear. Extremities: His right gvsad-kmt-lbzw amputation site has good hemostasis. Laboratory Studies: White blood cell count 5.8, hemoglobin 8.1, platelets 418. Sodium 142, potassiu m 3.8, chloride 107, carbon dioxide 31, BUN 26, creatinine 1.24, glucose ranged from 71 up to 213, ca lcium 8.4, magnesium 2.9, prealbumin is 10.8, albumin 2.1. X-ray/imaging: No new x-rays or imaging. Medications: Medications have been reviewed and are unchanged. Progress Made With Physical, Occupational, And Speech Therapy: With physical therapy today, he did s xjpnw-lz-rid transfers independently, ability to perform whu-hv-zakga transfers done independently wi th a rolling walker. Gait, he ambulated 90 feet with contact guard assistance using a rolling walker . He was able to go up and down 5 steps with maximum assistance and bilateral handrails. With occup ational therapy, independent with bed mobility and going to the edge of the bed, supine transfers als o done with some verbal cues. Supervision for showering. With speech, SLUMS score was 21. He will continue to need speech after he is discharged to jail in the morning. Assessment: Mr. Pelayo is an 84-year-old patient, admitted to the rehabilitation unit with severe p eripheral artery disease, status post right below-knee amputation. He still has moderate cognitive i mpairment, decreased mobility, decreased physical functioning, hypertension, dyslipidemia, diabetes m ellitus, anxiety, constipation, insomnia, and the again right rsxei-rkr-odvh amputation. Plan: He will continue with physical, occupational, and speech therapy until he is discharged. Cont inue with his comorbid condition medications which have been listed including for pain management, fo r DVT prophylaxis, for his hypertension, diabetes, dyslipidemia. He will be discharged to [facility] in the morning. JAYSON/MIRIAM Voice ID: [id number] Report ID: [id number]
[2024-10-11] MEDS: LANTUS SQ SCH (08:00)
[2024-10-11 08:07] VITALS: BP 137/63; TEMP 97.4
[2024-10-12] MEDS ORDERED: [UNRECOGNIZED DRUG - OTHER] OPTH SCH (20:00)
== END 2024-10-11 11:37 | DRG 561 ==
LOC: 5TH 13:20
PROVIDERS: ADMIT Psychiatry & Neurology Neurology with Special Qualifications in Child Neurology; ATTEND Psychiatry & Neurology Neurology with Special Qualifications in Child Neurology
DX: Z47.81 Encounter for orthopedic aftercare following surgical amputation (principal); Z89.511 Acquired absence of right leg below knee; E11.22 Type 2 diabetes mellitus with diabetic chronic kidney disease; I12.9 Hypertensive chronic kidney disease with stage 1 through stage 4 chronic kidney disease, or unspecified chronic kidney disease; N18.30 Chronic kidney disease, stage 3 unspecified; M10.9 Gout, unspecified; K59.00 Constipation, unspecified; F32.A Depression, unspecified; F41.9 Anxiety disorder, unspecified; E78.5 Hyperlipidemia, unspecified; I73.9 Peripheral vascular disease, unspecified; E11.40 Type 2 diabetes mellitus with diabetic neuropathy, unspecified; G47.00 Insomnia, unspecified
CPT/HCPCS: 36415; 74018; 80048; 81001; 82040; 82947; 83036; 83735; 84134; 85025; 87086; 87088; 92523; 97110; 97116; 97129; 97161; 97165; 97530; 97542; J2003